=== PATIENT | female | born 1960 | race Caucasian/White ===

== ENCOUNTER → 2017-05-06 16:52 | Outpatient (CLI) | payer MEDICAID, SELFPAY ==
--- NOTE | 2017-05-06 17:30 | MRI_ITS ---
STUDY: MRI LUMBAR SPINE WITH AND WITHOUT CONTRAST REASON FOR EXAM: Female, 57 years old. Back pain radiating down the legs TECHNIQUE: Standardized fat and water weighted pulse sequences were obtained in the sagittal and axial planes. 10 ml of Gadavist contrast material was administered for the contrast portion of the examination. COMPARISON: None FINDINGS: T12-L1: Normal endplates. Normal disc height, hydration and minimal annular bulge. Normal bilateral facet joints. Normal central canal and bilateral lateral recesses. Normal bilateral intervertebral neural foramina. Normal lumbar lordosis. There is no substantial scoliosis. Normal conus medullaris that terminates at T12-L1 L1-2: Minor chronic wedging of superior endplate of L1 Normal disc height, hydration and minimal annular bulge.. Normal bilateral facet joints. Normal central canal and bilateral lateral recesses. Normal bilateral intervertebral neural foramina. L2-3: Minor chronic wedging of superior endplate of L2 Normal disc height, hydration and minimal annular bulge.. Normal bilateral facet joints. Normal central canal and bilateral lateral recesses. Normal bilateral intervertebral neural foramina. L3-4: Normal endplates. Normal disc height, hydration and minor annular bulge.. Mild facet arthropathy. Normal central canal. Mild bilateral recess and neural foraminal encroachment. L4-5: Grade 1 spondylolisthesis . Status post right laminectomy. Normal endplates. Normal disc height, hydration and minor pseudobulging of the annulus.. Bilateral facet arthropathy Normal central canal. Severe bilateral recess stenosis exaggerated by shortened pedicles. Mild neural foraminal encroachment L5-S1: Status post right laminotomy. Normal endplates. Normal disc height, desiccation and minimal annular bulge with prominent left posterolateral/foraminal disc protrusion. Bilateral facet arthropathy.. Normal central canal. Severe left lateral recess and neuroforaminal stenosis. Normal visualized sacral ala. There is mild enhancement epidural fibrosis seen within the epidural space at L4-5 and L5-S1. No evidence for acute osteomyelitis or discitis Normal visualized paraspinous soft tissue structures. MRI/Spine Lumbar W/WO Contrast IMPRESSION: Status post right laminectomy at L4-5 and L5-S1. There is severe bilateral stenosis at L4-5 due to minor pseudobulging the annulus and bilateral facet arthropathy exaggerated by shortened pedicles Severe left lateral recess and neuroforaminal stenosis at L5-S1 secondary to prominent left posterolateral/foraminal disc protrusion Electronically Signed: Michael Meza MD at 23:31 EST , Service support ,
== END ==
PROVIDERS: Visit Provider Orthopaedic Surgery
DX: M79.604 Pain in right leg (principal); M54.5 Low back pain
CPT/HCPCS: 72158; A9585

== ENCOUNTER 2017-07-16 23:59 | Inpatient (IN) | payer MEDICAID, SELFPAY ==
[2017-07-17] VITALS (8 sets, daily range): BP systolic 109–158; BP diastolic 72–100; PULSE 85–118; RESP 16–20; TEMP 36.3–37; O2SAT 93–98; BMI 32.5
--- NOTE | 2017-07-17 00:33 | RAD_ITS ---
STUDY: X-RAY - PELVIS AND RIGHT HIP REASON FOR EXAM: Female, 57 years old. Pain getting progressively worse since January 16, 2017, no known injury. TECHNIQUE: Radiological exam, hip, unilateral, with pelvis when performed; 2 or 3 views. COMPARISON: 01/15/2017. Pelvis 11/15/2016. FINDINGS: There are degenerative changes of the visualized lumbar spine. There are atherosclerotic vascular calcifications of the pelvic arteries. There is narrowing with cortical sclerosis and osteophyte formation of the sacroiliac joint consistent with degenerative osteoarthritic changes. Normal bilateral superior and inferior pubic rami. Normal pubic symphysis. Normal bilateral ischial tuberosities. Significant change of right femoral head and proximal neck with flattening of the femoral head, sclerosis, loss of femoral head height. There is a new step off which is densely corticated between the femoral neck and head in the subcapital left femur. Normal acetabulum. There is severe articular cephalad joint space narrowing of the hip. RAD/Hip 2-3 Views with Pelvis IMPRESSION: Again changes of the right hip in the interim with changes as outlined above, this may be due to avascular necrosis and compression of the femoral head, however the significant sclerosed step off may be secondary to a healed displaced up to patellofemoral neck fracture. MRI examination advised for further detail. Electronically Signed: Melissa Fuller MD at 1:52 EDT , Service support ,
[2017-07-17] MEDS: HYDROmorphone 1 MG/ML Syringe IM (00:57)
[2017-07-17] MEDS: HYDROmorphone 1 MG/ML Syringe IV ×3 (02:52→16:10)
--- NOTE | 2017-07-17 02:55 | ED.DCSUM_ITS ---
- ER Visit Summary Date of Service: 07/17/17 Chief Complaint: [Right hip pain] History of Present Illness: The patient is a 57 F [presents the emergency department with right hip pain for 6 or 7 months. Patient states that she was seen in the emergency department in December of last year and had x-rays that did not show anything significant. Patient since has been seen by pain management and has injections in the right hip. Patient also has a history of chronic back pain and in April had an MRI of her back that showed some herniated disks and patient is currently seeing a spine surgeon who is evaluating patient for possible need for surgery. Patient states that over the last month the pain in the right hip has become more severe and at times now having a hard time getting up from a seated position. When patient tries to stand and bear weight she hears a cracking and popping in the right hip. Patient states that the pain is severe and she points to her right groin as the area of her pain. Patient denies any recent trauma.] Physical Examination: [HEENT-PERRLA, EOMI. Cranial nerves II through XII grossly intact. TMs clear. Mucous membranes moist. No adenopathy. Cardiovascular-regular rate and rhythm without murmur or ectopy Lungs-clear to auscultation, chest wall stable without crepitus or subcu emphysema Abdomen-normoactive bowel sounds, soft, nontender, no rebound or rigidity, no peritoneal signs. Extremities-intact ?4, normal range of motion, normal pulses, atraumatic]. Right hip-patient has pain with logrolling. Patient has positive straight leg raise with pain starting at 10?. Deep tendon reflexes are plus 1 out of 4 bilaterally at the patella and Achilles. Patient has normal L5 extension bilaterally. Test Results: [X-rays of the right hip and pelvis obtained showed changes in the right hip which may be due to avascular necrosis and compression of the femoral head there is a significant sclerosis step off may be secondary to a healed displaced patellofemoral neck fracture. MRI examination advised for further detail.] Emergency Department Course and Treatment: [Patient was medicated with Dilaudid in the emergency department and patient will be admitted for pain control as she continues to complain of significant pain. Patient should not be weightbearing. Patient will be admitted for further evaluation and treatment.] Treatment Plan: [Admit] Disposition: [Admit] Impression: [Intractable right hip pain Avascular necrosis right hip Right hip fracture] This note was generated with [employer] dictation software. It may contain incorrect words, spelling, and punctuation that were not noted in review of the chart prior to signing ED Disposition - Plan for ED Patient: Chief Complaint: Back Referrals: [facility] Doctor,Out of [Primary Care Provider] -
[2017-07-17 03:39] LABS: Absolute Lymphocyte Count 3.06 X10^3/ul (0.83-4.51); Absolute Neutrophil Count 4.7 X10^3/uL (2.0-7.7); Basophil# 0.03 X10^3/uL; Basophil% 0.3 % (0-1); Eosinophil# 0.27 X10^3/uL; Eosinophils% 3.1 % (0-5); Hematocrit 39.6 % (37-47); Hemoglobin 12.7 g/dl (12.0-15.0); Lymphocyte # 3.06 X10^3/ul (4.0); Lymphocyte % 34.7 % (19-41); Mean Corp Hgb Conc 32.1 g/gl (32-36); Mean Corpuscular Hgb 28.5 pg (27.0-32.0); Mean Corpuscular Volume 88.8 fL (81-99); Mean Platelet Vol. 9.9 fl (6.2-12.0); Monocyte# 0.75 X10^3/uL; Monocyte% 8.5 % (0-10); Neutrophil % 53.2 % (47-70); POSITIVE COUNT NO; POSITIVE DIFFERENTIAL NO; POSITIVE MORPHOLOGY NO; Platelet Count 251 K/mm3 (150-450); RBC Distribution Width CV 16.1 % (11.6-14.6); RBC Distribution Width SD 52.6 fl (35.1-43.9); Red Blood Count 4.46 M/mm3 (4.2-5.4); White Blood Count 8.8 K/mm3 (4.4-11.0)
[2017-07-17 03:43] LABS: Prothrombin Time (Protime)PT. 12.7 SECONDS (11.7-14.9)
[2017-07-17] MEDS: oxyCODONE 5 MG Tablet 15 MG PO ×3 (04:19→13:36)
[2017-07-17] MEDS: tiZANidine HCl 2 MG Tablet 4 MG PO ×2 (04:20→12:49)
[2017-07-17 04:22] LABS: ALB/GLOB Ratio 0.9 RATIO (0.9-2.4); AST(SGOT) 11 U/L (15-37); Alanine Aminotransfer ALT/SGPT 19 U/L (13-56); Albumin, Serum 3.6 g/dL (3.2-5.0); Alkaline Phosphatase 116 U/L (45-117); Anion Gap 7 (5-15); BUN 29 mg/dL (7-18); BUN/Creat Ratio 25.9 RATIO (10-20); Calcium,Total 8.6 mg/dL (8.5-10.1); Chloride 108 mmol/L (98-107); Creatinine, Serum 1.12 mg/dL (0.55-1.02); EST Glomerular Filtration Rate 53 mL/min (>60); Est Glom Filt Rate - Afr Amer 65 mL/min (>60); Estimated Creatinine Clearance 50.47 ml/min; Globulin 3.9 g/dL (2.2-4.2); Glucose 116 mg/dL (74-106); Potassium 3.9 mmol/L (3.5-5.1); Protein, Total 7.5 g/dL (6.4-8.2); Sodium Level 144 mmol/L (136-145); Total Bilirubin < 0.10 mg/dL (0.20-1.00)
--- NOTE | 2017-07-17 04:38 | PCM.HP.STD ---
Problem List (1) Right hip pain Status: Acute History of Present Illness Date of Admission: 07/17/17 Chief Complaint: Increased right hip pain The patient is a 57 year old F in in the emergency room at [facility] complaining of increased pain in her right hip along with inability to bear weight on the right hip and abnormal hip sounds. Patient has had a history of right hip pain since December 2016, she saw an orthopedic surgeon at that time who did not feel the patient needed surgical intervention, she had her right hip joint injected 4 weeks ago by pain management but is continued to have ongoing pain in her right hip. Evaluation in the emergency room included x-rays of the right hip and pelvis which showed a flattening of the right femoral head and what appears to be a fracture of the right femoral neck. There is also question that there could be an AVN of the right hip present. She had no lab work ordered by the emergency room. Patient was given IV pain medication and the hospitalist service was called for admission for right hip fracture-possible AVN. Patient will need an MRI of the right hip performed and will need to be seen by orthopedic surgery, patient prefers Dr. Ronal Nascimento for orthopedic consultation Past Medical History Past Medical History (Chronic Problems): Chronic Problems (Last Reviewed 06/10/17 @ 10:08 by Jennifer Duvall) Atherosclerosis of [place] coronary artery of [place] heart without angina pectoris (Chronic) Tobacco abuse (Chronic) H/O laminectomy (Chronic) Hypertension (Chronic) Hyperlipidemia (Chronic) Low back pain (Chronic) Allergies baclofen Adverse Reaction (Verified 07/16/17 23:59) LETHARGY Home Medications: Ambulatory Orders Medication Instructions Recorded Furosemide [Lasix] 20 mg PO DAILY 09/16/16 Lisinopril [Zestril] 20 mg PO DAILY 09/16/16 traZODone [Desyrel] 200 mg PO QHS 09/16/16 Aspirin [Aspirin, Baby] 81 mg PO DAILY@0800 tab.chew 11/18/16 Clopidogrel Bisulfate [Plavix] 75 mg PO DAILY 30 Days tab 11/18/16 Ibuprofen [Motrin] 800 mg PO BID PRN 11/25/16 Tizanidine HCl [Zanaflex] 4 mg PO TID 11/25/16 DiphenhydrAMINE [Benadryl] 50 mg PO QHS 01/15/17 gabapentin 400 mg capsule 800 mg PO 4X/DAY 03/18/17 metoprolol tartrate 25 mg tablet 25 mg PO BID 60 Days #60 tab 05/25/17 rosuvastatin 40 mg tablet 40 mg PO DAILY 30 Days #30 tab 05/25/17 Oxycodone HCl/Acetaminophen 1 each PO TID PRN 07/17/17 [Percocet 7.5-325 mg Tablet] Surgical History: herniorrhaphy, hysterectomy, - - laminectomy, left tib-fib fracture with open reduction secondary to trauma, coronary artery stents ?2, left breast biopsy Psychiatric History: No pertinent psych hx 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 Lives: With Family Smoking Status: Current every day smoker Tobacco Use: Cigarettes Alcohol: Occasional Drugs: None - *Family History Maternal History Items: Diabetes Paternal History Items: Hypertension Review of Systems Constitutional: Denies: Anorexia, Chills, Fever, Night Sweats, Malaise, Weakness, Weight Change, Fatigue Eyes: Denies: Blurred vision, Cataracts, Conjunctivae Inflammation, Double vision, Drainage, Pain, Redness, Vision Change HEENT: Denies: Difficulty Swallowing, Dysphasia, Ear Pain, Eye Pain, Head Aches, Hearing Changes, Nasal bleeding, Nasal Congestion, Post Nasal Drip Cardiovascular: Denies: Chest Pain, Claudication, Chest Pressure, Chest Tightness, Edema, Heaviness, Orthopnea, Palpitations, Paroxysmal Noc. Dyspnea Respiratory: Denies: Cough, Hemoptysis, Pleuritic Pain, Shortness of Breath, Shortness of breath at rest, Shortness of breath upon exertion, Sputum production, Wheezing Gastrointestinal: Denies: Abdominal Pain, Constipation, Diarrhea, Hematemesis, Hematochezia, Nausea, Melena, Vomiting Genitourinary: Denies: Dysuria, Frequency, Hematuria, Hesitancy, Incontinence, Nocturia, Urgency Gynecological: Denies: Breast symptoms Musculoskeletal: Reports: Back Pain - Chronic back pain, Joint Pain - Right hip pain, Leg Pain - Right hip pain. Denies: Foot Pain Skin: Denies: Dryness, Jaundice, Pruritis, Rash Neurological: Denies: Blurred vision, Double vision, Change in Speech, Slurred speech, Difficulty swallowing, Focal weakness, Headaches, Incoordination, Numbness, Tingling Psychiatric: Denies: Anxiety, Depression, Homicidal Ideations, Suicidal Ideations Endocrine: Denies: Change in Body Habitus, Heat/ Cold Intolerance, Polydipsia, Polyuria Hematologic/ Lymphatic: Denies: Adenopathy, Anemia, Easy Bruising, Easy Bleeding, Petechiae, Purpura VTE Information - Inpt Only VTE Present on Admission: No VTE Mechan Device Prophylaxis: SCD's VTE Pharm Prophylaxis ordered?: No Reason prophylaxis not ordered:: Treatment Not Indicated - SCD's were ordered Patient Problems: Active and Suspected Problems (Last Reviewed 06/10/17 @ 10:08 by Jennifer Duvall) Right hip pain (Acute) - Physical Exam General: Alert, Oriented x3, Cooperative, Well developed, Well nourished HEENT: Atraumatic, PERRLA, EOMI, Normocephalic Oral: Moist Mucosa Neck: Supple, No JVD, Negative Carotid Bruits, No Nuchal Rigidity, Trachea Midline, Thyroid Normal Size and Texture Lungs: Clear to auscultation, Normal air movement, No rhonchi, No rales, Wheezes - Scattered mild expiratory wheezes are noted anteriorly Cardiovascular: Regular rate, Regular Rhythm, Normal S1, Normal S2, No murmurs, No Ectopic Activity, PMI Normal, No rub noted, No Gallop Abdomen: Bowel Sounds Present, Soft, Non Tender, Non-Distended, No hernias noted Extremities: No clubbing, No cyanosis, No edema, Capillary Refill Less than 3 Seconds Skin: No rashes, No breakdown Musculoskeletal: Tenderness - Tenderness over the right hip area is noted to palpation, - - Decreased range of motion is noted in flexion, extension, and abduction in the right hip due to pain Neurological: Cranial nerves II-XII grossly intact, Neuro grossly intact, Sensory exam intact to light touch and pain, Coordination normal Psych/Mental Status: Appropriate, Anxious, Alert and oriented to time, place, person, mood and affect Vital Signs Temp Pulse Resp BP Pulse Ox 98.1 F 103 H 16 144/84 H 97 07/17/17 03:53 07/17/17 03:53 07/17/17 03:53 07/17/17 03:53 07/17/17 03:53 Oxygen Delivery Method Room Air Weight: 88.7 kg Body Mass Index (BMI) 32.5 Laboratory Tests Past 24 Hrs 07/17/17 07/17/17 07/17/17 03:00 03:00 03:00 WBC 8.8 RBC 4.46 Hgb 12.7 Hct 39.6 MCV 88.8 MCH 28.5 MCHC 32.1 RDW 16.1 H RDW Differential 52.6 H Plt Count 251 MPV 9.9 Immature Gran % (Auto) 0.200 Neut % (Auto) 53.2 Lymph % (Auto) 34.7 Travis % (Auto) 8.5 Eos % (Auto) 3.1 Baso % (Auto) 0.3 Absolute Neuts (auto) 4.7 Absolute Lymphs (auto) 3.06 Total Counted Not Reportable PT 12.7 INR 1.0 Sodium 144 Potassium 3.9 Chloride 108 H Carbon Dioxide 29.0 Anion Gap 7 BUN 29 H Creatinine 1.12 H Estim Creat Clear Calc 50.47 Est GFR (MDRD) Af Amer 65 Est GFR (MDRD) Non-Af 53 L BUN/Creatinine Ratio 25.9 H Glucose 116 H Calcium 8.6 Total Bilirubin < 0.10 L AST 11 L ALT 19 Alkaline Phosphatase 116 Total Protein 7.5 Albumin 3.6 Globulin 3.9 Albumin/Globulin Ratio 0.9 Assessment/Plan Active and Suspected Problems (Last Reviewed 06/10/17 @ 10:08 by Jennifer Duvall) Right hip pain (Acute) #1 right hip fracture-probably secondary to AVN, patient will be admitted to [facility], she will be seen by orthopedic surgery, she will have an MRI of her right hip, IV pain medications will be administered as needed #2 coronary artery disease-stable at this time, patient had two stents placed in October 2016 #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
--- NOTE | 2017-07-17 04:47 | HP.PCM_ITS ---
Problem List (1) Right hip pain Status: Acute History of Present Illness Date of Admission: 07/17/17 Chief Complaint: Increased right hip pain The patient is a 57 year old F in in the emergency room at [facility] complaining of increased pain in her right hip along with inability to bear weight on the right hip and abnormal hip sounds. Patient has had a history of right hip pain since December 2016, she saw an orthopedic surgeon at that time who did not feel the patient needed surgical intervention, she had her right hip joint injected 4 weeks ago by pain management but is continued to have ongoing pain in her right hip. Evaluation in the emergency room included x -rays of the right hip and pelvis which showed a flattening of the right femoral head and what appears to be a fracture of the right femoral neck. There is also question that there could be an AVN of the right hip present. She had no lab work ordered by the emergency room. Patient was given IV pain medication and the hospitalist service was called for admission for right hip fracture-possible AVN. Patient will need an MRI of the right hip performed and will need to be seen by orthopedic surgery, patient prefers Dr. Ronal Nascimento for orthopedic consultation Past Medical History Past Medical History (Chronic Problems): Chronic Problems (Last Reviewed 06/10/17 @ 10:08 by Jennifer Duvall) Atherosclerosis of [place] coronary artery of [place] heart without angina pectoris (Chronic) Tobacco abuse (Chronic) H/O laminectomy (Chronic) Hypertension (Chronic) Hyperlipidemia (Chronic) Low back pain (Chronic) Allergies baclofen Adverse Reaction (Verified 07/16/17 23:59) LETHARGY Home Medications: Ambulatory Orders Medication Instructions Recorded Furosemide [Lasix] 20 mg PO DAILY 09/16/16 Lisinopril [Zestril] 20 mg PO DAILY 09/16/16 traZODone [Desyrel] 200 mg PO QHS 09/16/16 Aspirin [Aspirin, Baby] 81 mg PO DAILY@0800 tab.chew 11/18/16 Clopidogrel Bisulfate [Plavix] 75 mg PO DAILY 30 Days tab 11/18/16 Ibuprofen [Motrin] 800 mg PO BID PRN 11/25/16 Tizanidine HCl [Zanaflex] 4 mg PO TID 11/25/16 DiphenhydrAMINE [Benadryl] 50 mg PO QHS 01/15/17 gabapentin 400 mg capsule 800 mg PO 4X/DAY 03/18/17 metoprolol tartrate 25 mg tablet 25 mg PO BID 60 Days #60 tab 05/25/17 rosuvastatin 40 mg tablet 40 mg PO DAILY 30 Days #30 tab 05/25/17 Oxycodone HCl/Acetaminophen 1 each PO TID PRN 07/17/17 [Percocet 7.5-325 mg Tablet] Surgical History: herniorrhaphy, hysterectomy, - - laminectomy, left tib-fib fracture with open reduction secondary to trauma, coronary artery stents ?2, left breast biopsy Psychiatric History: No pertinent psych hx 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 Lives: With Family Smoking Status: Current every day smoker Tobacco Use: Cigarettes Alcohol: Occasional Drugs: None - *Family History Maternal History Items: Diabetes Paternal History Items: Hypertension Review of Systems Constitutional: Denies: Anorexia, Chills, Fever, Night Sweats, Malaise, Weakness , Weight Change, Fatigue Eyes: Denies: Blurred vision, Cataracts, Conjunctivae Inflammation, Double vision, Drainage, Pain, Redness, Vision Change HEENT: Denies: Difficulty Swallowing, Dysphasia, Ear Pain, Eye Pain, Head Aches , Hearing Changes, Nasal bleeding, Nasal Congestion, Post Nasal Drip Cardiovascular: Denies: Chest Pain, Claudication, Chest Pressure, Chest Tightness, Edema, Heaviness, Orthopnea, Palpitations, Paroxysmal Noc. Dyspnea Respiratory: Denies: Cough, Hemoptysis, Pleuritic Pain, Shortness of Breath, Shortness of breath at rest, Shortness of breath upon exertion, Sputum production, Wheezing Gastrointestinal: Denies: Abdominal Pain, Constipation, Diarrhea, Hematemesis, Hematochezia, Nausea, Melena, Vomiting Genitourinary: Denies: Dysuria, Frequency, Hematuria, Hesitancy, Incontinence, Nocturia, Urgency Gynecological: Denies: Breast symptoms Musculoskeletal: Reports: Back Pain - Chronic back pain, Joint Pain - Right hip pain, Leg Pain - Right hip pain. Denies: Foot Pain Skin: Denies: Dryness, Jaundice, Pruritis, Rash Neurological: Denies: Blurred vision, Double vision, Change in Speech, Slurred speech, Difficulty swallowing, Focal weakness, Headaches, Incoordination, Numbness, Tingling Psychiatric: Denies: Anxiety, Depression, Homicidal Ideations, Suicidal Ideations Endocrine: Denies: Change in Body Habitus, Heat/ Cold Intolerance, Polydipsia, Polyuria Hematologic/ Lymphatic: Denies: Adenopathy, Anemia, Easy Bruising, Easy Bleeding , Petechiae, Purpura VTE Information - Inpt Only VTE Present on Admission: No VTE Mechan Device Prophylaxis: SCD's VTE Pharm Prophylaxis ordered?: No Reason prophylaxis not ordered:: Treatment Not Indicated - SCD's were ordered Patient Problems: Active and Suspected Problems (Last Reviewed 06/10/17 @ 10:08 by Jennifer Duvall) Right hip pain (Acute) - Physical Exam General: Alert, Oriented x3, Cooperative, Well developed, Well nourished HEENT: Atraumatic, PERRLA, EOMI, Normocephalic Oral: Moist Mucosa Neck: Supple, No JVD, Negative Carotid Bruits, No Nuchal Rigidity, Trachea Midline, Thyroid Normal Size and Texture Lungs: Clear to auscultation, Normal air movement, No rhonchi, No rales, Wheezes - Scattered mild expiratory wheezes are noted anteriorly Cardiovascular: Regular rate, Regular Rhythm, Normal S1, Normal S2, No murmurs, No Ectopic Activity, PMI Normal, No rub noted, No Gallop Abdomen: Bowel Sounds Present, Soft, Non Tender, Non-Distended, No hernias noted Extremities: No clubbing, No cyanosis, No edema, Capillary Refill Less than 3 Seconds Skin: No rashes, No breakdown Musculoskeletal: Tenderness - Tenderness over the right hip area is noted to palpation, - - Decreased range of motion is noted in flexion, extension, and abduction in the right hip due to pain Neurological: Cranial nerves II-XII grossly intact, Neuro grossly intact, Sensory exam intact to light touch and pain, Coordination normal Psych/Mental Status: Appropriate, Anxious, Alert and oriented to time, place, person, mood and affect Vital Signs Temp Pulse Resp BP Pulse Ox 98.1 F 103 H 16 144/84 H 97 07/17/17 03:53 07/17/17 03:53 07/17/17 03:53 07/17/17 03:53 07/17/17 03:53 Oxygen Delivery Method Room Air Weight: 88.7 kg Body Mass Index (BMI) 32.5 Laboratory Tests Past 24 Hrs 07/17/17 07/17/17 07/17/17 03:00 03:00 03:00 WBC 8.8 RBC 4.46 Hgb 12.7 Hct 39.6 MCV 88.8 MCH 28.5 MCHC 32.1 RDW 16.1 H RDW Differential 52.6 H Plt Count 251 MPV 9.9 Immature Gran % (Auto) 0.200 Neut % (Auto) 53.2 Lymph % (Auto) 34.7 Harney % (Auto) 8.5 Eos % (Auto) 3.1 Baso % (Auto) 0.3 Absolute Neuts (auto) 4.7 Absolute Lymphs (auto) 3.06 Total Counted Not Reportable PT 12.7 INR 1.0 Sodium 144 Potassium 3.9 Chloride 108 H Carbon Dioxide 29.0 Anion Gap 7 BUN 29 H Creatinine 1.12 H Estim Creat Clear Calc 50.47 Est GFR (MDRD) Af Amer 65 Est GFR (MDRD) Non-Af 53 L BUN/Creatinine Ratio 25.9 H Glucose 116 H Calcium 8.6 Total Bilirubin < 0.10 L AST 11 L ALT 19 Alkaline Phosphatase 116 Total Protein 7.5 Albumin 3.6 Globulin 3.9 Albumin/Globulin Ratio 0.9 Assessment/Plan Active and Suspected Problems (Last Reviewed 06/10/17 @ 10:08 by Jennifer Duvall) Right hip pain (Acute) #1 right hip fracture-probably secondary to AVN, patient will be admitted to [facility], she will be seen by orthopedic surgery, she will have an MRI of her right hip, IV pain medications will be administered as needed #2 coronary artery disease-stable at this time, patient had two stents placed in October 2016 #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
--- NOTE | 2017-07-17 05:55 | MRI_ITS ---
STUDY: MRI BILATERAL HIPS T PELVIS REASON FOR EXAM: Severe right hip pain worsening since December, no specific injury. TECHNIQUE: Standardized fat and water weighted pulse sequences were obtained in all 3 orthogonal planes. COMPARISON: Radiographs 07/17/2017. FINDINGS: RIGHT HIP There is chondral loss of the right hip joint and effusion (T2 sagittal images 39-41). There is bone edema of the right acetabulum (inversion recovery coronal images 10-15). There is degeneration of the right labrum. There is subchondral collapse of the right femoral head (T1 coronal images 11-13) with bone edema extending into the femoral neck and a linear fracture line of the right femoral head (T1 axial image 20; T1 coronal image 11), most suggestive of insufficiency fracture. There is an enchondroma in the base of the right femoral neck (inversion recovery coronal image 12) measuring 1.6 cm in length. Normal right gluteus minimus, medius and iliopsoas tendons and distal insertions. Normal right superior and inferior pubic rami. Normal right pubic symphysis. Normal right ischial tuberosity. Normal origin of the right hamstring tendons. Normal visualized right iliac wing, sacroiliac joint, and sacral ala. There is a strain of the right gluteus minimus muscle (inversion recovery coronal images 9-11). LEFT HIP Normal left hip joint without articular joint space narrowing. Normal left acetabulum. Normal left labrum. Normal left femoral head. Normal left femoral neck and intratrochanteric region. Normal left gluteus minimus, medius and iliopsoas tendons and distal insertions. Normal left superior and inferior pubic rami. Normal left pubic symphysis. Normal left ischial tuberosity. Normal origin of the left hamstring tendons. Normal visualized left iliac wing, sacroiliac joint, and sacral ala. MRI/Pelvis (Routine) IMPRESSION: Subchondral insufficiency fracture with subchondral collapse of the right femoral head. Chondral loss of the right hip joint with joint effusion. Bone edema of the right acetabulum. Strain of the right gluteus minimus muscle. Enchondroma in the right femoral neck. Electronically Signed: Morro Corea MD at 9:33 EDT Tel , Service support ,
--- NOTE | 2017-07-17 07:19 | NURSING ---
Card for patient's heart stent faxed to MRI per their request
[2017-07-17] MEDS: Gabapentin 800 MG Tablet PO ×3 (09:34→17:07)
[2017-07-17] MEDS: Aspirin 81 MG TAB.CHEW PO (09:34)
[2017-07-17] MEDS: Furosemide 20 MG Tablet PO (09:35)
[2017-07-17] MEDS: Clopidogrel Bisulfate 75 MG Tablet PO (09:35)
[2017-07-17] MEDS: Metoprolol Tartrate 25 MG Tablet PO (09:35)
[2017-07-17] MEDS: Lisinopril 20 MG Tablet PO (09:35)
[2017-07-17] MEDS: 0.9% NaCl Peripheral Flush Adult/Peds IV ×3 (09:42→16:10)
--- NOTE | 2017-07-17 10:15 | PCM.PN.HOSP ---
Patient Problems: Active and Suspected Problems (Last Reviewed 06/10/17 @ 10:08 by Jennifer Duvall) Right hip pain (Acute) Subjective: Has complained of pain in her right hip since December. Saw Dr. Armenta who did x-rays and said that her hip look good at that time. Her hip has a steadily gotten worse during this time. X-ray today shows a vascular necrosis of the hip. MRI showed subchondral insufficiency fracture with subchondral collapse of the right femoral head. Subchondral loss of the right hip joint with joint effusion. Bone edema of the right acetabulum. Vitals/I&O's: Vital Signs Temp Pulse Resp BP Pulse Ox 37.0 C 118 H 16 146/100 H 96 07/17/17 09:29 07/17/17 09:35 07/17/17 09:29 07/17/17 09:29 07/17/17 09:29 Oxygen Delivery Method Room Air Weight: 88.7 kg Body Mass Index (BMI) 32.5 General: Alert HEENT: Atraumatic, Normocephalic Neck: No Nodes, Thyroid Normal Size and Texture Lungs: Clear to auscultation, Normal air movement, No rhonchi, No wheeze Cardiovascular: Regular rate, Regular Rhythm, Normal S1, Normal S2 Abdomen: Bowel Sounds Present, Soft, Non Tender, Non-Distended, No Hepato-splenomegaly Extremities: No edema, No Calf Tenderness Psych/Mental Status: Normal Affect, Appropriate Laboratory Results 07/17/17 03:00: WBC 8.8, RBC 4.46, Hgb 12.7, Hct 39.6, MCV 88.8, MCH 28.5, MCHC 32.1, RDW 16.1 H, RDW Differential 52.6 H, Plt Count 251, MPV 9.9, Immature Gran % (Auto) 0.200, Neut % (Auto) 53.2, Lymph % (Auto) 34.7, [place] % (Auto) 8.5, Eos % (Auto) 3.1, Baso % (Auto) 0.3, Absolute Neuts (auto) 4.7, Absolute Lymphs (auto) 3.06, Total Counted Not Reportable 07/17/17 03:00: PT 12.7, INR 1.0 07/17/17 03:00: Sodium 144, Potassium 3.9, Chloride 108 H, Carbon Dioxide 29.0, Anion Gap 7, BUN 29 H, Creatinine 1.12 H, Estim Creat Clear Calc 50.47, Est GFR (MDRD) Af Amer 65, Est GFR (MDRD) Non-Af 53 L, BUN/Creatinine Ratio 25.9 H, Glucose 116 H, Calcium 8.6, Total Bilirubin < 0.10 L, AST 11 L, ALT 19, Alkaline Phosphatase 116, Total Protein 7.5, Albumin 3.6, Globulin 3.9, Albumin/Globulin Ratio 0.9 Current Medications Aspirin (Aspirin, Baby) 81 mg PO DAILY@0800 [facility] Last Admin: 07/17/17 09:34 Dose: 81 mg Atorvastatin Calcium (Lipitor) 80 mg PO DAILY@2200 [facility] Clopidogrel Bisulfate (Plavix) 75 mg PO DAILY [facility] Last Admin: 07/17/17 09:35 Dose: 75 mg Diphenhydramine HCl (Benadryl) 50 mg PO QHS [facility] Furosemide (Lasix) 20 mg PO DAILY [facility] Last Admin: 07/17/17 09:35 Dose: 20 mg Gabapentin (Neurontin) 800 mg PO 4X/DAYCM [facility] Last Admin: 07/17/17 09:34 Dose: 800 mg Hydromorphone HCl (Dilaudid Inj) 1 mg IV Q4H PRN PRN PRN Reason: SEVERE PAIN (6-10/10) Last Admin: 07/17/17 09:41 Dose: 1 mg Lisinopril (Zestril) 20 mg PO DAILY [facility] Last Admin: 07/17/17 09:35 Dose: 20 mg Metoprolol Tartrate (Lopressor (Beta Ha)) 25 mg PO BID [facility] Last Admin: 07/17/17 09:35 Dose: 25 mg Oxycodone HCl (Oxyir) 15 mg PO Q4H PRN PRN PRN Reason: MOD-SEVERE PAIN (4-10/10) Last Admin: 07/17/17 08:12 Dose: 15 mg Sodium Chloride () 5 - 30 ml IV UD PRN PRN Reason: SALINE FLUSH Last Admin: 07/17/17 09:42 Dose: 5 ml Tizanidine HCl (Zanaflex) 4 mg PO TID [facility] Last Admin: 07/17/17 04:20 Dose: 4 mg Medical Necessity - Tobacco Use Smoking Status: Current every day smoker Tobacco Use: Cigarettes Assessment/Plan Active and Suspected Problems (Last Reviewed 06/10/17 @ 10:08 by Jennifer Duvall) Right hip pain (Acute) 1. Right hip avascular necrosis Discussed with Dr. Nascimento who states that this is a chronic process for the patient and will likely not be performing surgery while she is here and recommended patient utilize a walker for ambulating. He will evaluate the patient later on and have further discussions with her more specifically. 2. Coronary artery disease Drug-eluting stents placed in October. Patient will need cardiology clearance prior to her undergoing surgery to see if she can be off of the Plavix. Code Visit Procedures: Other Procedure - See Report - non billable rounding.
--- NOTE | 2017-07-17 10:21 | PN_ITS ---
Patient Problems: Active and Suspected Problems (Last Reviewed 06/10/17 @ 10:08 by Jennifer Duvall) Right hip pain (Acute) Subjective: Has complained of pain in her right hip since December. Saw Dr. Armenta who did x- rays and said that her hip look good at that time. Her hip has a steadily gotten worse during this time. X-ray today shows a vascular necrosis of the hip. MRI showed subchondral insufficiency fracture with subchondral collapse of the right femoral head. Subchondral loss of the right hip joint with joint effusion. Bone edema of the right acetabulum. Vitals/I&O's: Vital Signs Temp Pulse Resp BP Pulse Ox 37.0 C 118 H 16 146/100 H 96 07/17/17 09:29 07/17/17 09:35 07/17/17 09:29 07/17/17 09:29 07/17/17 09:29 Oxygen Delivery Method Room Air Weight: 88.7 kg Body Mass Index (BMI) 32.5 General: Alert HEENT: Atraumatic, Normocephalic Neck: No Nodes, Thyroid Normal Size and Texture Lungs: Clear to auscultation, Normal air movement, No rhonchi, No wheeze Cardiovascular: Regular rate, Regular Rhythm, Normal S1, Normal S2 Abdomen: Bowel Sounds Present, Soft, Non Tender, Non-Distended, No Hepato- splenomegaly Extremities: No edema, No Calf Tenderness Psych/Mental Status: Normal Affect, Appropriate Laboratory Results 07/17/17 03:00: WBC 8.8, RBC 4.46, Hgb 12.7, Hct 39.6, MCV 88.8, MCH 28.5, MCHC 32.1, RDW 16.1 H, RDW Differential 52.6 H, Plt Count 251, MPV 9.9, Immature Gran % (Auto) 0.200, Neut % (Auto) 53.2, Lymph % (Auto) 34.7, [place] % (Auto) 8.5 , Eos % (Auto) 3.1, Baso % (Auto) 0.3, Absolute Neuts (auto) 4.7, Absolute Lymphs (auto) 3.06, Total Counted Not Reportable 07/17/17 03:00: PT 12.7, INR 1.0 07/17/17 03:00: Sodium 144, Potassium 3.9, Chloride 108 H, Carbon Dioxide 29.0, Anion Gap 7, BUN 29 H, Creatinine 1.12 H, Estim Creat Clear Calc 50.47, Est GFR (MDRD) Af Amer 65, Est GFR (MDRD) Non-Af 53 L, BUN/Creatinine Ratio 25.9 H, Glucose 116 H, Calcium 8.6, Total Bilirubin < 0.10 L, AST 11 L, ALT 19, Alkaline Phosphatase 116, Total Protein 7.5, Albumin 3.6, Globulin 3.9, Albumin/ Globulin Ratio 0.9 Current Medications Aspirin (Aspirin, Baby) 81 mg PO DAILY@0800 [facility] Last Admin: 07/17/17 09:34 Dose: 81 mg Atorvastatin Calcium (Lipitor) 80 mg PO DAILY@2200 [facility] Clopidogrel Bisulfate (Plavix) 75 mg PO DAILY [facility] Last Admin: 07/17/17 09:35 Dose: 75 mg Diphenhydramine HCl (Benadryl) 50 mg PO QHS [facility] Furosemide (Lasix) 20 mg PO DAILY [facility] Last Admin: 07/17/17 09:35 Dose: 20 mg Gabapentin (Neurontin) 800 mg PO 4X/DAYCM [facility] Last Admin: 07/17/17 09:34 Dose: 800 mg Hydromorphone HCl (Dilaudid Inj) 1 mg IV Q4H PRN PRN PRN Reason: SEVERE PAIN (6-10/10) Last Admin: 07/17/17 09:41 Dose: 1 mg Lisinopril (Zestril) 20 mg PO DAILY [facility] Last Admin: 07/17/17 09:35 Dose: 20 mg Metoprolol Tartrate (Lopressor (Beta Ha)) 25 mg PO BID [facility] Last Admin: 07/17/17 09:35 Dose: 25 mg Oxycodone HCl (Oxyir) 15 mg PO Q4H PRN PRN PRN Reason: MOD-SEVERE PAIN (4-10/10) Last Admin: 07/17/17 08:12 Dose: 15 mg Sodium Chloride () 5 - 30 ml IV UD PRN PRN Reason: SALINE FLUSH Last Admin: 07/17/17 09:42 Dose: 5 ml Tizanidine HCl (Zanaflex) 4 mg PO TID [facility] Last Admin: 07/17/17 04:20 Dose: 4 mg Medical Necessity - Tobacco Use Smoking Status: Current every day smoker Tobacco Use: Cigarettes Assessment/Plan Active and Suspected Problems (Last Reviewed 06/10/17 @ 10:08 by Jennifer Duvall) Right hip pain (Acute) 1. Right hip avascular necrosis * Discussed with Dr. Nascimento who states that this is a chronic process for the patient and will likely not be performing surgery while she is here and recommended patient utilize a walker for ambulating. He will evaluate the patient later on and have further discussions with her more specifically. 2. Coronary artery disease * Drug-eluting stents placed in October. Patient will need cardiology clearance prior to her undergoing surgery to see if she can be off of the Plavix. Code Visit Procedures: Other Procedure - See Report - non billable rounding.
--- NOTE | 2017-07-17 11:31 | CASEMGMT ---
Social Work Assessment Referral Date: 07/17/2017 Date of Assessment: 07/17/2017 Reason for consult: Initial Assessment Informant: CM consult Personal Status: SW met with pt to complete initial assessment. MISTY introduced self and role at [facility]. Pt is alert and orientated x4. Pt states that before coming into the hospital she was living with her aunt in a one-story home. Pt states that she has one step to get into her home. Pt states that she has been dependent on ADLs since December when her hip pain started. Pt states that her aunt helps her with ADLs. Pt states that she has a cane at home and would like grab bars in her shower. SW informed pt that this worker will check to see how to get grab bars for pt. Pt states that her aunt has in a walk in shower that she is able to use. Pt states that her aunt is very supportive of her. Pt states that her plan is to return home at discharge with support from her aunt. Pt denied additional needs or concerns at this time. Substance Abuse Hx: Pt states that she used to smoke cigarettes and drink alcohol but states that she no longer does these. Pt states that she never had a problem with these when she smoked and drank. Pt denied other substance use. Mental Health Hx: Pt states that she has anxiety and depression. Pt states that she used to receive counseling services but states that they didn't really help her. Pt denied a current need for counseling services. Pt states that she used to be on Ativan. Pt states that she is no longer taking it but would like to get back on it. MISTY asked pt if she has a PCP and per pt she doesn't. SW provide pt with list of PCP's. SW encouraged pt to set up a PCP and when she has one to see if they can prescribe her Ativan. Pt states understanding. Plan: Return home at discharge with support from her aunt Cherelle Camacho NEONATAL SURGEON, METER/RELAY CRAFTSMAN
--- NOTE | 2017-07-17 14:33 | CASEMGMT ---
Social Work Note SW back in to see pt to provide PCP list. SW asked pt if she would be interested in completing advanced directives as CM consult was for Advanced Directions. Pt is interested in completing. This SW assisted pt in completing Advanced Directives and MAMADOU DA SILVA witnessed signature with this SW. SW also informed pt that for grab rails pt can go to any Hardware store to get grab bars and that insurance won't pay for them. Pt was receptive to this and states understanding. Pt was receptive to do outpatient therapy at discharge if needed. MAMADOU Burciaga notified of this. Pt denied additional needs or concerns at this time. Plan: Discharge home with outpatient therapy Cherelle Camacho JOB DEVELOPER, ASSISTANT PROFESSOR OF ANTHROPOLOGY
--- NOTE | 2017-07-17 15:14 | CASEMGMT ---
Social Work Note SW placed script for front wheeled walker and green sheet on chart. Plan: Discharge Home with outpatient therapy if needed Cherelle Camacho MSW, AUTO BODY REPAIR TEACHER
[2017-07-18] VITALS (8 sets, daily range): BP systolic 103–133; BP diastolic 64–88; PULSE 85–108; RESP 16–18; TEMP 36.6–37; O2SAT 94–97
[2017-07-18] MEDS: DiphenhydrAMINE 25 MG Capsule 50 MG PO (00:02)
[2017-07-18] MEDS: traZODone 100 MG Tablet 200 MG PO (00:03)
[2017-07-18] MEDS: HYDROmorphone 1 MG/ML Syringe IV ×3 (01:18→10:36)
[2017-07-18] MEDS: oxyCODONE 5 MG Tablet 15 MG PO ×5 (03:23→21:24)
[2017-07-18] MEDS: tiZANidine HCl 2 MG Tablet 4 MG PO ×3 (05:55→21:24)
[2017-07-18] MEDS: 0.9% NaCl Peripheral Flush Adult/Peds IV ×3 (05:59→10:36)
--- NOTE | 2017-07-18 07:27 | CON.PCM_ITS ---
- Consult Date of Consult: 07/18/17 - Reason for Consult Handwritten consult was submitted yesterday as the Advisor Client Match system was down. The patient has had a stent placed in October and is currently on Plavix. I did review the imaging she has severe avascular necrosis with subchondral collapse which is certainly causing her discomfort. MRI was also reviewed. Patient does not have an acute fracture. She will require a hip replacement however the plan will be to complete this on an elective basis. Patient was instructed to see her java front end web developer this week and follow-up with me this coming week and proceed with surgery in the next couple of weeks again on an elective basis in order to decrease risk of complication. At this point ambulation with protected weightbearing using a walker would be appropriate and pain medication. It is reasonable to discharge her home with oral pain medication with follow-up next week. Arrangements have been made with my office for follow -up
[2017-07-18] MEDS: Aspirin 81 MG TAB.CHEW PO (09:17)
[2017-07-18] MEDS: Gabapentin 800 MG Tablet PO ×4 (09:17→21:24)
--- NOTE | 2017-07-18 10:20 | CASEMGMT ---
MISTY met with patient to inquire if she would like home therapy or outpatient therapy. She said she does not want any therapy currently as she is in so much pain. She said she will be having a hip replacement and back surgery soon and at that time will take all the therapy she can get. MISTY told her the physician needs to sign her prescription for the walker and they will then give it to her at d/c. MISTY told her she can take it to [facility]. She thanked MISTY. Green sheet on chart with instructions to have physician sign prescription for walker and give to patient. Plan: home with prescription for walker Asia SCHREIBER WORKFORCE ADVISOR
[2017-07-18] MEDS: Clopidogrel Bisulfate 75 MG Tablet PO (10:36)
[2017-07-18] MEDS: Lisinopril 20 MG Tablet PO (10:36)
[2017-07-18] MEDS: Metoprolol Tartrate 25 MG Tablet PO ×2 (10:36→21:23)
[2017-07-18] MEDS: Furosemide 20 MG Tablet PO (10:36)
--- NOTE | 2017-07-18 13:24 | PCM.PN.HOSP ---
Patient Problems: Active and Suspected Problems (Last Reviewed 06/10/17 @ 10:08 by Jennifer Duvall) Right hip pain (Acute) Subjective: Says that she cannot go home because of her pain and with a help there is glottic is helps put her to sleep. Told that I will be discontinuing the Dilaudid she has for 1 more dose. I told her would not oblige but would focus on oral treatment of her pain control. Vitals/I&O's: Vital Signs Temp Pulse Resp BP Pulse Ox 37.0 C 88 18 116/72 94 07/18/17 09:08 07/18/17 10:36 07/18/17 09:08 07/18/17 09:08 07/18/17 09:08 Oxygen Delivery Method Room Air Weight: 88.7 kg Body Mass Index (BMI) 32.5 Intake and Output for Last 24 Hours 07/16/17 07/17/17 07/18/17 23:59 23:59 23:59 Intake Total 1500 / 1500 1260 / 1260 Balance 1500 / 1500 1260 / 1260 General: Alert, No apparent distress, - - Became tearful at one point Neurological: - - Patient seen walking with physical therapy with walker and gait seem to be stable with that. Psych/Mental Status: Anxious Current Medications Aspirin (Aspirin, Baby) 81 mg PO DAILY@0800 [facility] Last Admin: 07/18/17 09:17 Dose: 81 mg Atorvastatin Calcium (Lipitor) 80 mg PO DAILY@2200 [facility] Last Admin: 07/18/17 00:23 Dose: Not Given Clopidogrel Bisulfate (Plavix) 75 mg PO DAILY [facility] Last Admin: 07/18/17 10:36 Dose: 75 mg Diphenhydramine HCl (Benadryl) 50 mg PO QHS [facility] Last Admin: 07/18/17 00:02 Dose: 50 mg Furosemide (Lasix) 20 mg PO DAILY [facility] Last Admin: 07/18/17 10:36 Dose: 20 mg Gabapentin (Neurontin) 800 mg PO 4X/DAYCM [facility] Last Admin: 07/18/17 12:37 Dose: 800 mg Lisinopril (Zestril) 20 mg PO DAILY [facility] Last Admin: 07/18/17 10:36 Dose: 20 mg Metoprolol Tartrate (Lopressor (Beta Ha)) 25 mg PO BID [facility] Last Admin: 07/18/17 10:36 Dose: 25 mg Oxycodone HCl (Oxyir) 15 mg PO Q4H PRN PRN PRN Reason: MOD-SEVERE PAIN (4-10/10) Last Admin: 07/18/17 13:18 Dose: 15 mg Sodium Chloride () 5 - 30 ml IV UD PRN PRN Reason: SALINE FLUSH Last Admin: 07/18/17 10:36 Dose: 10 ml Tizanidine HCl (Zanaflex) 4 mg PO TID [facility] Last Admin: 07/18/17 13:18 Dose: 4 mg Trazodone HCl (Desyrel) 200 mg PO QHS [facility] Last Admin: 07/18/17 00:03 Dose: 200 mg Medical Necessity - Tobacco Use Smoking Status: Current every day smoker Tobacco Use: Cigarettes Assessment/Plan Active and Suspected Problems (Last Reviewed 06/10/17 @ 10:08 by Jennifer Duvall) Right hip pain (Acute) 1. Right hip avascular necrosis Patient to follow-up with Dr. Nascimento as outpatient for surgical intervention. Patient giving me some conflicting information. Patient was stating that she was told by orthopedics that she would need to stay in the hospital for several days to get her pain under control and but and she was asking for an additional dose of Dilaudid before I would discontinue it. I told her I was very concerned about her requesting completing further Dilaudid. I told her that we would try to focus on her pain control as much as possible. Patient then went on to talk about her back pain and then her neck pain and how she is seeing spine surgery as well as pain management for this. I told her the goal is to get her functional but we are not going to completely make her pain-free. Told the patient I have no doubts about her having pain but the goal is to get her home. Confounding this is a patient was seen up ambulating and in no distress and was talking with the physical therapist by myself. Patient was also seen by other providers as well and that she appear to be in no distress. I did review the patient's OARRS and she did receive 84 7.5/[address] Fitzpatrick on June 30 and then she did receive 800 mg of gabapentin with a quantity 112 on 15 July. I am concerned about the patient's request for pain medications and trigger with IV pain medication almost pleading. Plan is to continue with the oxycodone. Patient was already seeing Dr. Correa for this pain as his pain is been going on for 6 months. Him since he not can change anything in regards her medications as she is on Neurontin well as Percocet. Plan is for the patient to go home with a walker and then to follow-up with cardiology and orthopedics for revision of her right hip. 2. Coronary artery disease Drug-eluting stents placed in October. Patient will need cardiology clearance prior to her undergoing surgery to see if she can be off of the Plavix. Greater than 35 minutes of which greater than 50% of time was discussed with the patient about her pain control and focusing on function with pain medications but also reinforcing the fact that this is not new process for her as is been going on for several months now. Code Visit Inpatient E&M: 70392 Subs Hosp L3
--- NOTE | 2017-07-18 13:30 | PN_ITS ---
Patient Problems: Active and Suspected Problems (Last Reviewed 06/10/17 @ 10:08 by Jennifer Duvall) Right hip pain (Acute) Subjective: Says that she cannot go home because of her pain and with a help there is glottic is helps put her to sleep. Told that I will be discontinuing the Dilaudid she has for 1 more dose. I told her would not oblige but would focus on oral treatment of her pain control. Vitals/I&O's: Vital Signs Temp Pulse Resp BP Pulse Ox 37.0 C 88 18 116/72 94 07/18/17 09:08 07/18/17 10:36 07/18/17 09:08 07/18/17 09:08 07/18/17 09:08 Oxygen Delivery Method Room Air Weight: 88.7 kg Body Mass Index (BMI) 32.5 Intake and Output for Last 24 Hours 07/16/17 07/17/17 07/18/17 23:59 23:59 23:59 Intake Total 1500 / 1500 1260 / 1260 Balance 1500 / 1500 1260 / 1260 General: Alert, No apparent distress, - - Became tearful at one point Neurological: - - Patient seen walking with physical therapy with walker and gait seem to be stable with that. Psych/Mental Status: Anxious Current Medications Aspirin (Aspirin, Baby) 81 mg PO DAILY@0800 [facility] Last Admin: 07/18/17 09:17 Dose: 81 mg Atorvastatin Calcium (Lipitor) 80 mg PO DAILY@2200 [facility] Last Admin: 07/18/17 00:23 Dose: Not Given Clopidogrel Bisulfate (Plavix) 75 mg PO DAILY [facility] Last Admin: 07/18/17 10:36 Dose: 75 mg Diphenhydramine HCl (Benadryl) 50 mg PO QHS [facility] Last Admin: 07/18/17 00:02 Dose: 50 mg Furosemide (Lasix) 20 mg PO DAILY [facility] Last Admin: 07/18/17 10:36 Dose: 20 mg Gabapentin (Neurontin) 800 mg PO 4X/DAYCM [facility] Last Admin: 07/18/17 12:37 Dose: 800 mg Lisinopril (Zestril) 20 mg PO DAILY [facility] Last Admin: 07/18/17 10:36 Dose: 20 mg Metoprolol Tartrate (Lopressor (Beta Ha)) 25 mg PO BID [facility] Last Admin: 07/18/17 10:36 Dose: 25 mg Oxycodone HCl (Oxyir) 15 mg PO Q4H PRN PRN PRN Reason: MOD-SEVERE PAIN (4-10/10) Last Admin: 07/18/17 13:18 Dose: 15 mg Sodium Chloride () 5 - 30 ml IV UD PRN PRN Reason: SALINE FLUSH Last Admin: 07/18/17 10:36 Dose: 10 ml Tizanidine HCl (Zanaflex) 4 mg PO TID [facility] Last Admin: 07/18/17 13:18 Dose: 4 mg Trazodone HCl (Desyrel) 200 mg PO QHS [facility] Last Admin: 07/18/17 00:03 Dose: 200 mg Medical Necessity - Tobacco Use Smoking Status: Current every day smoker Tobacco Use: Cigarettes Assessment/Plan Active and Suspected Problems (Last Reviewed 06/10/17 @ 10:08 by Jennifer Duvall) Right hip pain (Acute) 1. Right hip avascular necrosis * Patient to follow-up with Dr. Nascimento as outpatient for surgical intervention. * Patient giving me some conflicting information. Patient was stating that she was told by orthopedics that she would need to stay in the hospital for several days to get her pain under control and but and she was asking for an additional dose of Dilaudid before I would discontinue it. I told her I was very concerned about her requesting completing further Dilaudid. I told her that we would try to focus on her pain control as much as possible. Patient then went on to talk about her back pain and then her neck pain and how she is seeing spine surgery as well as pain management for this. I told her the goal is to get her functional but we are not going to completely make her pain-free. Told the patient I have no doubts about her having pain but the goal is to get her home. * Confounding this is a patient was seen up ambulating and in no distress and was talking with the physical therapist by myself. Patient was also seen by other providers as well and that she appear to be in no distress. * I did review the patient's OARRS and she did receive 84 7.5/[address] Fitzpatrick on June 30 and then she did receive 800 mg of gabapentin with a quantity 112 on 15 July. * I am concerned about the patient's request for pain medications and trigger with IV pain medication almost pleading. Plan is to continue with the oxycodone. Patient was already seeing Dr. Correa for this pain as his pain is been going on for 6 months. Him since he not can change anything in regards her medications as she is on Neurontin well as Percocet. Plan is for the patient to go home with a walker and then to follow-up with cardiology and orthopedics for revision of her right hip. 2. Coronary artery disease * Drug-eluting stents placed in October. Patient will need cardiology clearance prior to her undergoing surgery to see if she can be off of the Plavix. Greater than 35 minutes of which greater than 50% of time was discussed with the patient about her pain control and focusing on function with pain medications but also reinforcing the fact that this is not new process for her as is been going on for several months now. Code Visit Inpatient E&M: 90867 Subs Hosp L3
--- NOTE | 2017-07-19 00:31 | NUR.TO.PHY ---
Went to room to notify patient of nighttime MD order of PRN Motrin following home dosing. Patient asleep, snoring, not awakened by noise made by this nurse turning off light and removing I/O paper from room.
[2017-07-19] MEDS: oxyCODONE 5 MG Tablet 15 MG PO ×6 (01:44→23:03)
[2017-07-19] MEDS: traZODone 100 MG Tablet 200 MG PO (01:47)
[2017-07-19] MEDS: DiphenhydrAMINE 25 MG Capsule 50 MG PO (01:47)
[2017-07-19 01:54] VITALS: BP 131/74; PULSE 87; RESP 16; TEMP 36.6; O2SAT 96
[2017-07-19] MEDS: tiZANidine HCl 2 MG Tablet 4 MG PO ×3 (06:30→21:52)
--- NOTE | 2017-07-19 06:30 | NUR.TO.PHY ---
Patient awakened this AM by this nurse for 0600 Zanaflex. Patient then asked Do you have any pain meds for me? I replied asking- if I had to wake her from sleep how severe her pain was. Patient became very upset with nurse, and stated firmly, I am either sleeping, in pain or , give me my pain medications, its a 10/10 Oxyir was given @ this time. Patient also set up for shower @ her request.
[2017-07-19] MEDS: Gabapentin 800 MG Tablet PO ×4 (08:21→21:52)
[2017-07-19] MEDS: Aspirin 81 MG TAB.CHEW PO (08:21)
[2017-07-19 08:30] VITALS: BP 124/92; PULSE 106; RESP 18; TEMP 36.5; O2SAT 96
--- NOTE | 2017-07-19 10:27 | PCM.PN.HOSP ---
Patient Problems: Active and Suspected Problems (Last Reviewed 06/10/17 @ 10:08 by Jennifer Duvall) Right hip pain (Acute) Subjective: With significant right hip pain. Patient concerned about the avascular necrosis extending down to her femur and down to her tibia and fibula and is concerned about having an amputation of her right leg. Was asking questions specific to the pathophysiology of avascular necrosis. There which I told her I did not have the information readily available to me but inquired if she had ask Dr. Nascimento about this to it she said she did not. Vitals/I&O's: Vital Signs Temp Pulse Resp BP Pulse Ox 36.5 C L 106 H 18 124/92 H 96 07/19/17 08:30 07/19/17 08:30 07/19/17 08:30 07/19/17 08:30 07/19/17 08:30 Oxygen Delivery Method Room Air Weight: 88.7 kg Body Mass Index (BMI) 32.5 Intake and Output for Last 24 Hours 07/17/17 07/18/17 07/19/17 23:59 23:59 23:59 Intake Total 1500 / 1500 1870 / 1870 200 / 200 Balance 1500 / 1500 1870 / 1870 200 / 200 General: Alert, - - Up at the side of the bed. Tearful. HEENT: Atraumatic, Normocephalic Current Medications Aspirin (Aspirin, Baby) 81 mg PO DAILY@0800 [facility] Last Admin: 07/19/17 08:21 Dose: 81 mg Clopidogrel Bisulfate (Plavix) 75 mg PO DAILY [facility] Last Admin: 07/18/17 10:36 Dose: 75 mg Diphenhydramine HCl (Benadryl) 50 mg PO QHS [facility] Last Admin: 07/19/17 01:47 Dose: 50 mg Furosemide (Lasix) 20 mg PO DAILY [facility] Last Admin: 07/18/17 10:36 Dose: 20 mg Gabapentin (Neurontin) 800 mg PO 4X/DAYCM [facility] Last Admin: 07/19/17 08:21 Dose: 800 mg Lisinopril (Zestril) 20 mg PO DAILY [facility] Last Admin: 07/18/17 10:36 Dose: 20 mg Metoprolol Tartrate (Lopressor (Beta Ha)) 25 mg PO BID [facility] Last Admin: 07/18/17 21:23 Dose: 25 mg Oxycodone HCl (Oxyir) 15 mg PO Q4H PRN PRN PRN Reason: MOD-SEVERE PAIN (4-10/10) Last Admin: 07/19/17 06:30 Dose: 15 mg Rosuvastatin Calcium (Crestor) 40 mg PO DAILY [facility] Sodium Chloride () 5 - 30 ml IV UD PRN PRN Reason: SALINE FLUSH Last Admin: 07/18/17 10:36 Dose: 10 ml Tizanidine HCl (Zanaflex) 4 mg PO TID [facility] Last Admin: 07/19/17 06:30 Dose: 4 mg Trazodone HCl (Desyrel) 200 mg PO QHS [facility] Last Admin: 07/19/17 01:47 Dose: 200 mg Medical Necessity - Tobacco Use Smoking Status: Current every day smoker Tobacco Use: Cigarettes Assessment/Plan Active and Suspected Problems (Last Reviewed 06/10/17 @ 10:08 by Jennifer Duvall) Right hip pain (Acute) 1. Right hip avascular necrosis Patient to follow-up with Dr. Nascimento as outpatient for surgical intervention. Patient giving me some conflicting information. Patient was stating that she was told by orthopedics that she would need to stay in the hospital for several days to get her pain under control and but and she was asking for an additional dose of Dilaudid before I would discontinue it. I told her I was very concerned about her requesting completing further Dilaudid. I told her that we would try to focus on her pain control as much as possible. Patient then went on to talk about her back pain and then her neck pain and how she is seeing spine surgery as well as pain management for this. I told her the goal is to get her functional but we are not going to completely make her pain-free. Told the patient I have no doubts about her having pain but the goal is to get her home. Confounding this is a patient was seen up ambulating and in no distress and was talking with the physical therapist by myself. Patient was also seen by other providers as well and that she appear to be in no distress. I did review the patient's OARRS and she did receive 84 7.5/[address] Fitzpatrick on June 30 and then she did receive 800 mg of gabapentin with a quantity 112 on 15 July. I am concerned about the patient's request for pain medications and trigger with IV pain medication almost pleading. Plan is to continue with the oxycodone. Patient was already seeing Dr. Fitzpatrick for this pain as his pain is been going on for 6 months. Him since he not can change anything in regards her medications as she is on Neurontin well as Percocet. Plan is for the patient to go home with a walker and then to follow-up with cardiology and orthopedics for revision of her right hip. Patient stated that she is unable to go home and physical therapy did recommend skilled for her. So tentatively, plan will be for the [facility] if that works out the [facility] which I am not sure well. And I am not sure patient will qualify as patient was noted to be ambulating in the hallway with physical therapy. When I did evaluate see her in the hallway patient did walk with a limp but she appear to be in no distress and was communicating freely with the physical therapist. I have no question the patient is having pain in her right hip But I am concerned about the patient's request for pain medications. Patient's pain is been going on for months and patient has been seeing pain management for this and is receiving controlled substances through pain management as recently as June 30. Patient has been seen ambulating and in no duress though stand that she is not able to go home. And patient has been seen ambulating by other ancillary staff and patient appear to be comfortable. I will have Dr. Fitzpatrick come to evaluate her and make further recommendations. 2. Coronary artery disease Drug-eluting stents placed in October. Patient will need cardiology clearance prior to her undergoing surgery to see if she can be off of the Plavix. Code Visit Inpatient E&M: 10227 [facility] L1
--- NOTE | 2017-07-19 10:31 | PN_ITS ---
Patient Problems: Active and Suspected Problems (Last Reviewed 06/10/17 @ 10:08 by Jennifer Duvall) Right hip pain (Acute) Subjective: With significant right hip pain. Patient concerned about the avascular necrosis extending down to her femur and down to her tibia and fibula and is concerned about having an amputation of her right leg. Was asking questions specific to the pathophysiology of avascular necrosis. There which I told her I did not have the information readily available to me but inquired if she had ask Dr. Nascimento about this to it she said she did not. Vitals/I&O's: Vital Signs Temp Pulse Resp BP Pulse Ox 36.5 C L 106 H 18 124/92 H 96 07/19/17 08:30 07/19/17 08:30 07/19/17 08:30 07/19/17 08:30 07/19/17 08:30 Oxygen Delivery Method Room Air Weight: 88.7 kg Body Mass Index (BMI) 32.5 Intake and Output for Last 24 Hours 07/17/17 07/18/17 07/19/17 23:59 23:59 23:59 Intake Total 1500 / 1500 1870 / 1870 200 / 200 Balance 1500 / 1500 1870 / 1870 200 / 200 General: Alert, - - Up at the side of the bed. Tearful. HEENT: Atraumatic, Normocephalic Current Medications Aspirin (Aspirin, Baby) 81 mg PO DAILY@0800 [facility] BEDS AT [facility] Last Admin: 07/19/17 08:21 Dose: 81 mg Clopidogrel Bisulfate (Plavix) 75 mg PO DAILY [facility]CLUDE 234 BEDS AT [facility] Last Admin: 07/18/17 10:36 Dose: 75 mg Diphenhydramine HCl (Benadryl) 50 mg PO QHS [facility] 234 BEDS AT [facility] Last Admin: 07/19/17 01:47 Dose: 50 mg Furosemide (Lasix) 20 mg PO DAILY [facility] 234 BEDS AT [facility] Last Admin: 07/18/17 10:36 Dose: 20 mg Gabapentin (Neurontin) 800 mg PO 4X/DAYCM [facility]CLUDE 234 BEDS AT [facility] Last Admin: 07/19/17 08:21 Dose: 800 mg Lisinopril (Zestril) 20 mg PO DAILY [facility] 234 BEDS AT [facility] Last Admin: 07/18/17 10:36 Dose: 20 mg Metoprolol Tartrate (Lopressor (Beta Ha)) 25 mg PO BID [facility] 234 B[facility]S AT [facility] Last Admin: 07/18/17 21:23 Dose: 25 mg Oxycodone HCl (Oxyir) 15 mg PO Q4H PRN PRN PRN Reason: MOD-SEVERE PAIN (4-10/10) Last Admin: 07/19/17 06:30 Dose: 15 mg Rosuvastatin Calcium (Crestor) 40 mg PO DAILY [facility]CLUDE 234 BEDS AT [facility] Sodium Chloride () 5 - 30 ml IV UD PRN PRN Reason: SALINE FLUSH Last Admin: 07/18/17 10:36 Dose: 10 ml Tizanidine HCl (Zanaflex) 4 mg PO TID [facility] 234 BEDS AT [facility] Last Admin: 07/19/17 06:30 Dose: 4 mg Trazodone HCl (Desyrel) 200 mg PO QHS [facility]CLUDE 234 BEDS AT [facility] Last Admin: 07/19/17 01:47 Dose: 200 mg Medical Necessity - Tobacco Use Smoking Status: Current every day smoker Tobacco Use: Cigarettes Assessment/Plan Active and Suspected Problems (Last Reviewed 06/10/17 @ 10:08 by Jennifer Duvall) Right hip pain (Acute) 1. Right hip avascular necrosis * Patient to follow-up with Dr. Nascimento as outpatient for surgical intervention. * Patient giving me some conflicting information. Patient was stating that she was told by orthopedics that she would need to stay in the hospital for several days to get her pain under control and but and she was asking for an additional dose of Dilaudid before I would discontinue it. I told her I was very concerned about her requesting completing further Dilaudid. I told her that we would try to focus on her pain control as much as possible. Patient then went on to talk about her back pain and then her neck pain and how she is seeing spine surgery as well as pain management for this. I told her the goal is to get her functional but we are not going to completely make her pain-free. Told the patient I have no doubts about her having pain but the goal is to get her home. * Confounding this is a patient was seen up ambulating and in no distress and was talking with the physical therapist by myself. Patient was also seen by other providers as well and that she appear to be in no distress. * I did review the patient's OARRS and she did receive 84 7.5/[address] Fitzpatrick on June 30 and then she did receive 800 mg of gabapentin with a quantity 112 on 15 July. * I am concerned about the patient's request for pain medications and trigger with IV pain medication almost pleading. Plan is to continue with the oxycodone. Patient was already seeing Dr. Fitzpatrick for this pain as his pain is been going on for 6 months. Him since he not can change anything in regards her medications as she is on Neurontin well as Percocet. Plan is for the patient to go home with a walker and then to follow-up with cardiology and orthopedics for revision of her right hip. * Patient stated that she is unable to go home and physical therapy did recommend skilled for her. So tentatively, plan will be for the patient to go to [facility] facility if that works out the [employer] which I am not sure well. And I am not sure patient will qualify as patient was noted to be ambulating in the hallway with physical therapy. When I did evaluate see her in the hallway patient did walk with a limp but she appear to be in no distress and was communicating freely with the physical therapist. I have no question the patient is having pain in her right hip * But I am concerned about the patient's request for pain medications. Patient' s pain is been going on for months and patient has been seeing pain management for this and is receiving controlled substances through pain management as recently as June 30. Patient has been seen ambulating and in no duress though stand that she is not able to go home. And patient has been seen ambulating by other ancillary staff and patient appear to be comfortable. * I will have Dr. Fitzpatrick come to evaluate her and make further recommendations. 2. Coronary artery disease * Drug-eluting stents placed in October. Patient will need cardiology clearance prior to her undergoing surgery to see if she can be off of the Plavix. Code Visit Inpatient E&M: 60120 Subs Hosp L1
[2017-07-19] MEDS: Lisinopril 20 MG Tablet PO (10:49)
[2017-07-19] MEDS: Furosemide 20 MG Tablet PO (10:50)
[2017-07-19] MEDS: Clopidogrel Bisulfate 75 MG Tablet PO (10:50)
[2017-07-19] MEDS: ROSUVASTATIN CALCIUM 40 MG TABLET PO (10:51)
[2017-07-19 10:58] VITALS: BP 116/74; PULSE 97
[2017-07-19] MEDS: Metoprolol Tartrate 25 MG Tablet PO ×2 (10:58→21:52)
--- NOTE | 2017-07-19 12:52 | RAD_ITS ---
STUDY: X-RAY - RIGHT TIBIA AND FIBULA REASON FOR EXAM: Female, 57 years old. Pain TECHNIQUE: 2 view(s) of the tibia and fibula were obtained. COMPARISON: None. FINDINGS: There is no evidence of fracture or dislocation. There are no significant degenerative changes. There are no radiodense foreign bodies. RAD/Tibia & Fibula 2 Views IMPRESSION: No fracture or dislocation in the right tibia or fibula. Electronically Signed: Enrique Breaux, at 14:56 EDT Tel , Service support ,
[2017-07-19 15:09] VITALS: BP 125/82; PULSE 88; RESP 16; TEMP 36.7; O2SAT 97
--- NOTE | 2017-07-19 16:34 | NURSING ---
Patient angry that bed alarm on, wants it off. This nurse agreed with patient, OK to have bed alarm off, however patient must call out, using call light, before getting up. Patient agreed.
--- NOTE | 2017-07-19 18:50 | NURSING ---
This RN walked into patients room and patient was up to the bathroom. When this nurse asked the patient if she called for assistance she stated no, I forgot. This nurse asked the patient if she had fallen recently and admitted to this nurse that she has fallen 2 months ago. Fall risk assessment edited, and resulted a high risk patient for falling. This nurse explained to patient that the bed alarm would be turned back on. This nurse explained to the patient that this is for safety and to remind her not to get up without the assistance of a nurse or staff member. The patient became angry with this nurse and stated that no one told her the bed alarm would be turned on, and that we need to be telling patients when the bed alarm is on. This nurse explained to the patient that the bed alarm was on this morning at the start of shift and apologized to patient that she was not informed of the bed alarm. This nurse reminded patient that earlier when she expressed anger towards the bed alarm being on, we had turned it off and had told her to call for a nurse or staff member before getting up, however she did not call for help, so the bed alarm will be turned on for her safety and we as a unit and hospital do not want patient to fall. Patient agreed to call for help before getting up.
[2017-07-19 21:49] VITALS: BP 128/90; PULSE 88; RESP 16; TEMP 36.2; O2SAT 97
[2017-07-19 21:52] VITALS: BP 128/90; PULSE 88
[2017-07-20] VITALS (8 sets, daily range): BP systolic 115–131; BP diastolic 67–89; PULSE 80–90; RESP 16–18; TEMP 36.6–36.8; O2SAT 93–97
[2017-07-20] MEDS: DiphenhydrAMINE 25 MG Capsule 50 MG PO (02:15)
[2017-07-20] MEDS: traZODone 100 MG Tablet 200 MG PO (02:15)
[2017-07-20] MEDS: oxyCODONE 5 MG Tablet 15 MG PO ×5 (04:32→20:40)
[2017-07-20] MEDS: tiZANidine HCl 2 MG Tablet 4 MG PO ×3 (07:01→20:44)
[2017-07-20] MEDS: Metoprolol Tartrate 25 MG Tablet PO ×2 (08:04→20:43)
[2017-07-20] MEDS: Gabapentin 800 MG Tablet PO ×4 (08:04→20:44)
[2017-07-20] MEDS: Furosemide 20 MG Tablet PO (08:04)
[2017-07-20] MEDS: Aspirin 81 MG TAB.CHEW PO (08:05)
[2017-07-20] MEDS: ROSUVASTATIN CALCIUM 40 MG TABLET PO (08:05)
[2017-07-20] MEDS: Clopidogrel Bisulfate 75 MG Tablet PO (08:05)
[2017-07-20] MEDS: Lisinopril 20 MG Tablet PO (08:07)
--- NOTE | 2017-07-20 09:12 | PCM.PN.HOSP ---
Patient Problems: Active and Suspected Problems (Last Reviewed 06/10/17 @ 10:08 by Jennifer Duvall) Right hip pain (Acute) Subjective: With continued discomfort to the hip with recent evaluation per orthopedic surgery with noted avascular necrosis with recommendation for eventual elective replacement. Patient notes ongoing difficult to sleeping and pain but improving since initial presentation. Discussed plan of care which includes Dr. Fitzpatrick consultation and following this likely discharge to home with therapies outpatient as patient progressing well with narcotic regimen and any intervention per Dr. Fitzpatrick. Patient amenable to follow-up with orthopedic surgery outpatient for set up for elective surgery, possibly at tertiary facility given severity of appearance but noted that this would need to be discussed with surgery. Patient denies fevers, chills, nausea, emesis, abdominal pain, chest pain or dyspnea. Objective: Physical Examination: General: awake, alert, oriented x 3 and cooperative, seated upright in bedside chair, in no apparent distress. Skin: normal color, turgor, no icterus, cyanosis. HEENT: AT/NC, EOMI, PERRLA, MMM. Lungs: CTA bilaterally, moderate effort, mild decrease BL bases, no rales, ronchi or wheezing. Heart: Regular rate and rhythm; no gallop, rub audible. Abdomen: soft, obese, NTTP, ND, normal BS. Extremities: no cyanosis, clubbing, notable discomfort to the R hip, primarily with usage, worse w/ certain positioning, improving w/ therapies w/ walker, standy assist. Neurological: patient awake, alert, oriented x 3; cognitive function intact; pupils equally reactive to light and accomodation; cranial nerves II-XII grossly normal, moving all 4 extremities but still limited RLE w/ AVN, strength improving, moderately to severely globally decreased. Psychiatric: affect appears normal, no acute evidence of depressive or anxiety feelings. Vitals/I&O's: Vital Signs Temp Pulse Resp BP Pulse Ox 97.8 F 80 18 131/89 H 94 07/20/17 07:51 07/20/17 08:04 07/20/17 07:51 07/20/17 07:51 07/20/17 07:51 Oxygen Delivery Method Room Air Weight: 195 lb 8.8 oz Body Mass Index (BMI) 32.5 Intake and Output for Last 24 Hours 07/18/17 07/19/17 07/20/17 23:59 23:59 23:59 Intake Total 1870 / 1870 1200 / 1200 Balance 187 / 1870 1200 / 1200 Current Medications Aspirin (Aspirin, Baby) 81 mg PO DAILY@0800 [facility] Last Admin: 07/20/17 08:05 Dose: 81 mg Clopidogrel Bisulfate (Plavix) 75 mg PO DAILY [facility] Last Admin: 07/20/17 08:05 Dose: 75 mg Diphenhydramine HCl (Benadryl) 50 mg PO QHS [facility] Last Admin: 07/20/17 02:15 Dose: 50 mg Furosemide (Lasix) 20 mg PO DAILY [facility] Last Admin: 07/20/17 08:04 Dose: 20 mg Gabapentin (Neurontin) 800 mg PO 4X/DAYCM [facility] Last Admin: 07/20/17 08:04 Dose: 800 mg Lisinopril (Zestril) 20 mg PO DAILY [facility] Last Admin: 07/20/17 08:07 Dose: 20 mg Metoprolol Tartrate (Lopressor (Beta Ha)) 25 mg PO BID [facility] Last Admin: 07/20/17 08:04 Dose: 25 mg Oxycodone HCl (Oxyir) 15 mg PO Q4H PRN PRN PRN Reason: MOD-SEVERE PAIN (4-10/10) Last Admin: 07/20/17 08:32 Dose: 15 mg Rosuvastatin Calcium (Crestor) 40 mg PO DAILY [facility] Last Admin: 07/20/17 08:05 Dose: 40 mg Sodium Chloride () 5 - 30 ml IV UD PRN PRN Reason: SALINE FLUSH Last Admin: 07/18/17 10:36 Dose: 10 ml Tizanidine HCl (Zanaflex) 4 mg PO TID [facility] Last Admin: 07/20/17 07:01 Dose: 4 mg Trazodone HCl (Desyrel) 200 mg PO QHS [facility] Last Admin: 07/20/17 02:15 Dose: 200 mg Medical Necessity - Tobacco Use Smoking Status: Current every day smoker Tobacco Use: Cigarettes Assessment/Plan Active and Suspected Problems (Last Reviewed 06/10/17 @ 10:08 by Jennifer Duvall) Right hip pain (Acute) The patient is a 57 y/o F w/ PMHx: CAD s/p PCI 10/2016, Tobacco use, Chronic back pain s/p intervention following w/ Pain Management Dr. Fitzpatrick, HTN, HLD, Obesity who presents to the [facility] ED on 07/17/17 with history of increasing right hip discomfort with inability to bear weight and abnormal hip sounds with movement she notes with ongoing hip injections and evaluation outpatient per orthopedic surgery. (1) Acute on chronic intractable right hip pain secondary to suspected avascular necrosis: Plain films in the ED w/ changes of the right hip secondary to avascular necrosis and compression of the femoral head although initially possible healed undisplaced patella femoral neck fracture with recreation for MRI follow-up. MRI demonstrated subchondral insufficiency fracture with subchondral collapse of the right femoral head, chondral loss of the right hip joint with joint effusion, bone edema of the right acetabulum, strain of the right gluteus minimus muscle, enchondroma in the right femoral neck. Dr. Nascimento, Orthopedic surgery evaluation performed with noted acute pain secondary to avascular necrosis with subchondral collapse with no acute fracture demonstrated which he notes will eventually require complete hip replacement on an elective basis. Orthopedic surgery requested transition to senior care facility once pain controlled and evaluation per Dr. Fitzpatrick completed with follow-up outpatient per her just with follow-up in their office and arrangement of intervention once medically appropriate. Will maintain on fall precautions, frequent positioning, IV/oral pain medication transitioned to oral regimen only w/ oral oxycodone and neurontin, concerns for malingering noted per director of midwifery/staff midwife and physicians, zanaflex scheduled, anti-emetics, bowel regimen. PT and OT for evaluation, initially planned SNF, she has been improving thus plan discharge to home with outpatient therapies. Dr. Fitzpatrick consulted, will see 07/21/17 and following will plan discharge. Given ongoing pain will add fentanyl patch pending Dr. Fitzpatrick evaluation. (2) CAD: s/p PCI Will continue home regimen asa, plavix, statin, BB. Follow-up Cardiology visit 07/21/17 with plan for pre-operative clearance and plavix discontinuation discussions for planned elective hip as noted. (3) Obesity: Weight loss and lifestyle changes encouraged. (4) Tobacco Abuse: Encouraged cessation, inpatient consultation per RT, NR if desired. (5) Hypertension: Continue home regimen including lasix, lisinopril, metoprolol, PRN hydralazine. (6) Hyperlipidemia: Continue home statin regimen. (7) DVT Prophylaxis: SCDs, add heparin given no operative plans w/ AM hold in case of intervention per Dr. Fitzpatrick. PROLONGED CARE TIME: Patient with several questions and concerns in care path, required return to room and several items of coordination with care team, re-discussion pain management and future planning intervention, SNF versus home therapies discussions, notably above initial 70 minutes evaluation: Prolonged care time: 65 minutes. Code Visit Inpatient E&M: 64045 Subs Hosp L2 Procedures: 35159 Prolonged InPt Service; first hour
--- NOTE | 2017-07-20 09:23 | PN_ITS ---
Patient Problems: Active and Suspected Problems (Last Reviewed 06/10/17 @ 10:08 by Jennifer Duvall) Right hip pain (Acute) Subjective: With continued discomfort to the hip with recent evaluation per orthopedic surgery with noted avascular necrosis with recommendation for eventual elective replacement. Patient notes ongoing difficult to sleeping and pain but improving since initial presentation. Discussed plan of care which includes Dr. Fitzpatrick consultation and following this likely discharge to home with therapies outpatient as patient progressing well with narcotic regimen and any intervention per Dr. Fitzpatrick. Patient amenable to follow-up with orthopedic surgery outpatient for set up for elective surgery, possibly at tertiary facility given severity of appearance but noted that this would need to be discussed with surgery. Patient denies fevers, chills, nausea, emesis, abdominal pain, chest pain or dyspnea. Objective: Physical Examination: General: awake, alert, oriented x 3 and cooperative, seated upright in bedside chair, in no apparent distress. Skin: normal color, turgor, no icterus, cyanosis. HEENT: AT/NC, EOMI, PERRLA, MMM. Lungs: CTA bilaterally, moderate effort, mild decrease BL bases, no rales, ronchi or wheezing. Heart: Regular rate and rhythm; no gallop, rub audible. Abdomen: soft, obese, NTTP, ND, normal BS. Extremities: no cyanosis, clubbing, notable discomfort to the R hip, primarily with usage, worse w/ certain positioning, improving w/ therapies w/ walker, standy assist. Neurological: patient awake, alert, oriented x 3; cognitive function intact; pupils equally reactive to light and accomodation; cranial nerves II-XII grossly normal, moving all 4 extremities but still limited RLE w/ AVN, strength improving, moderately to severely globally decreased. Psychiatric: affect appears normal, no acute evidence of depressive or anxiety feelings. Vitals/I&O's: Vital Signs Temp Pulse Resp BP Pulse Ox 97.8 F 80 18 131/89 H 94 07/20/17 07:51 07/20/17 08:04 07/20/17 07:51 07/20/17 07:51 07/20/17 07:51 Oxygen Delivery Method Room Air Weight: 195 lb 8.8 oz Body Mass Index (BMI) 32.5 Intake and Output for Last 24 Hours 07/18/17 07/19/17 07/20/17 23:59 23:59 23:59 Intake Total 1870 / 1870 1200 / 1200 Balance 187 / 1870 1200 / 1200 Current Medications Aspirin (Aspirin, Baby) 81 mg PO DAILY@0800 [facility] Last Admin: 07/20/17 08:05 Dose: 81 mg Clopidogrel Bisulfate (Plavix) 75 mg PO DAILY [facility] Last Admin: 07/20/17 08:05 Dose: 75 mg Diphenhydramine HCl (Benadryl) 50 mg PO QHS [facility] Last Admin: 07/20/17 02:15 Dose: 50 mg Furosemide (Lasix) 20 mg PO DAILY [facility] Last Admin: 07/20/17 08:04 Dose: 20 mg Gabapentin (Neurontin) 800 mg PO 4X/DAYCM [facility] Last Admin: 07/20/17 08:04 Dose: 800 mg Lisinopril (Zestril) 20 mg PO DAILY [facility] Last Admin: 07/20/17 08:07 Dose: 20 mg Metoprolol Tartrate (Lopressor (Beta Ha)) 25 mg PO BID [facility] Last Admin: 07/20/17 08:04 Dose: 25 mg Oxycodone HCl (Oxyir) 15 mg PO Q4H PRN PRN PRN Reason: MOD-SEVERE PAIN (4-10/10) Last Admin: 07/20/17 08:32 Dose: 15 mg Rosuvastatin Calcium (Crestor) 40 mg PO DAILY [facility] Last Admin: 07/20/17 08:05 Dose: 40 mg Sodium Chloride () 5 - 30 ml IV UD PRN PRN Reason: SALINE FLUSH Last Admin: 07/18/17 10:36 Dose: 10 ml Tizanidine HCl (Zanaflex) 4 mg PO TID [facility] Last Admin: 07/20/17 07:01 Dose: 4 mg Trazodone HCl (Desyrel) 200 mg PO QHS [facility] Last Admin: 07/20/17 02:15 Dose: 200 mg Medical Necessity - Tobacco Use Smoking Status: Current every day smoker Tobacco Use: Cigarettes Assessment/Plan Active and Suspected Problems (Last Reviewed 06/10/17 @ 10:08 by Jennifer Duvall) Right hip pain (Acute) The patient is a 57 y/o F w/ PMHx: CAD s/p PCI 10/2016, Tobacco use, Chronic back pain s/p intervention following w/ Pain Management Dr. Fitzpatrick, HTN, HLD, Obesity who presents to the [facility] ED on 07/17/17 with history of increasing right hip discomfort with inability to bear weight and abnormal hip sounds with movement she notes with ongoing hip injections and evaluation outpatient per orthopedic surgery. (1) Acute on chronic intractable right hip pain secondary to suspected avascular necrosis: Plain films in the ED w/ changes of the right hip secondary to avascular necrosis and compression of the femoral head although initially possible healed undisplaced patella femoral neck fracture with recreation for MRI follow-up. MRI demonstrated subchondral insufficiency fracture with subchondral collapse of the right femoral head, chondral loss of the right hip joint with joint effusion, bone edema of the right acetabulum, strain of the right gluteus minimus muscle, enchondroma in the right femoral neck. Dr. Nascimento , Orthopedic surgery evaluation performed with noted acute pain secondary to avascular necrosis with subchondral collapse with no acute fracture demonstrated which he notes will eventually require complete hip replacement on an elective basis. Orthopedic surgery requested transition to [facility] facility once pain controlled and evaluation per Dr. Fitzpatrick completed with follow-up outpatient per her just with follow-up in their office and arrangement of intervention once medically appropriate. Will maintain on fall precautions, frequent positioning, IV/oral pain medication transitioned to oral regimen only w/ oral oxycodone and neurontin, concerns for malingering noted per medical staff services coordinator and physicians, zanaflex scheduled, anti-emetics, bowel regimen. PT and OT for evaluation, initially planned SNF, she has been improving thus plan discharge to home with outpatient therapies. Dr. Fitzpatrick consulted, will see 07/21/17 and following will plan discharge. Given ongoing pain will add fentanyl patch pending Dr. Fitzpatrick evaluation. (2) CAD: s/p PCI Will continue home regimen asa, plavix, statin, BB. Follow-up Cardiology visit 07/21/17 with plan for pre-operative clearance and plavix discontinuation discussions for planned elective hip as noted. (3) Obesity: Weight loss and lifestyle changes encouraged. (4) Tobacco Abuse: Encouraged cessation, inpatient consultation per RT, NR if desired. (5) Hypertension: Continue home regimen including lasix, lisinopril, metoprolol , PRN hydralazine. (6) Hyperlipidemia: Continue home statin regimen. (7) DVT Prophylaxis: SCDs, add heparin given no operative plans w/ AM hold in case of intervention per Dr. Fitzpatrick. PROLONGED CARE TIME: Patient with several questions and concerns in care path, required return to room and several items of coordination with care team, re- discussion pain management and future planning intervention, SNF versus home therapies discussions, notably above initial 70 minutes evaluation: Prolonged care time: 65 minutes. Code Visit Inpatient E&M: 24338 Subs Hosp L2 Procedures: 98133 Prolonged InPt Service; first hour
[2017-07-20] MEDS: Heparin Injection (Vial) 5,000 UNIT/ML VIAL 5000 UNIT SC ×3 (10:24→20:46)
[2017-07-20] MEDS: Famotidine 20 MG Tablet PO ×2 (10:25→20:43)
--- NOTE | 2017-07-20 12:21 | NURSING ---
Dr. Landry informed per Noemi in Therapy, PT/OT did state they recommend pt be discharged home with outpt PT, pt is doing better today. DR. Fitzpatrick's nurse called upon Dr. Landry's request to see if Dr. Fitzpatrick can make it a priority to see pt first thing in a.m. and pt has an appointment w/ cardiology already scheduled and want to get her discharged for it. They stated they will inform Dr. Fitzpatrick of request
--- NOTE | 2017-07-20 12:46 | CASEMGMT ---
Social Work Note SW in to see pt to discuss discharge planning. Per, pt she would like to go home pending Dr. Fitzpatrick consult and if her pain is able to get under controlled. Dr. Fitzpatrick is seeing pt tomorrow. Pt states that if she is unable to get her pain controlled she would like to go to [facility] for short term placement. SW informed pt that this worker will make referral for [facility] and pt will need pre-cert. SW informed pt that if Dr. Fitzpatrick is able to help pt and she wants to go home this worker can cancel referral. Pt was receptive to this and state understanding. Per, Dr. Azul Landry she would like pt/ot to be consulted to see if pt can go home with outpatient therapy. Charge Nurse Cristina called pt/ot and per pt/ot pt is able to go home with outpatient therapy. Dr. Azul Landry states that she will discharge pt home with outpatient therapy. MAMADOU Burciaga completed outpatient therapy script and rollator script and provided scripts to pt. MAMADOU Burciaga updated pt of this information. Pt will be discharged home with outpatient therapy. This worker didn't have to make referral to [facility] as pt is no longer needing placement. Plan: Discharge home with outpatient therapy Cherelle Camacho [employer]ESSER, ORDER RUNNER
--- NOTE | 2017-07-20 15:48 | NURSING ---
pt informed this nurse reached out to DR. Nascimento as she requested and asked if he would round on her that she wanted to talk with him, informed pt verbalized he had signed off the case as he had estabilished a plan with her on thursday. Pt verbalized that she just had a miss call from Dr. Nascimento's office about setting up an appointment and she would just talk with them when she calls them back or goes to the follow up appointment. Pt discussed treatment plan as well as events occurring over the weekend. aware pt had already discussed with Len RN, assist.strategic marketing manager. Emotional support given. Pt verbalized pain controlled at this time, not having any adverse reactions to the fentanyl patch. Discussed that have contacted 's office regarding consult and requested he see her as early as possible tomorrow due to appointment with cardiology and attempt to get her discharged for appointment. approx. 20min spend with pt. pt denied all further needs or questions. call light within reach. Primary RN informed of conversation
[2017-07-21] MEDS: DiphenhydrAMINE 25 MG Capsule 50 MG PO (00:48)
[2017-07-21] MEDS: traZODone 100 MG Tablet 200 MG PO (00:49)
[2017-07-21] MEDS: oxyCODONE 5 MG Tablet 15 MG PO ×4 (00:49→13:32)
[2017-07-21 05:21] VITALS: BP 153/85; PULSE 83; RESP 20; TEMP 37.2; O2SAT 92
[2017-07-21] MEDS: tiZANidine HCl 2 MG Tablet 4 MG PO ×2 (05:27→13:32)
--- NOTE | 2017-07-21 07:24 | PCM.PN.HOSP ---
Patient Problems: Active and Suspected Problems (Last Reviewed 06/10/17 @ 10:08 by Jennifer Duvall) Right hip pain (Acute) Subjective: Patient with no acute events overnight per self and per nursing report. She does state that the pain has improved with low-dose fentanyl patch addition and she did not have any reaction with the adhesive on the patch which she has had in the past although remotely 2 years prior with different medication. Options and will increase to 25 mg with plan for discharge today with follow-up with cardiology she notes today as well as planned reassessment per orthopedic surgery on Thursday following cardiology clearance for arrangement of elective hip replacement. Dr. Fitzpatrick evaluation this morning with no intervention plans thus patient amenable for discharge to home with outpatient therapy. Patient denies fevers, chills, nausea, emesis, abdominal pain, chest pain or dyspnea. Objective: Physical Examination: General: awake, alert, oriented x 3 and cooperative, seated upright in bed, in no apparent distress. Skin: normal color, turgor, no icterus, cyanosis. HEENT: AT/NC, EOMI, PERRLA, MMM. Lungs: CTA bilaterally, moderate effort, mild decrease BL bases, no rales, ronchi or wheezing. Heart: Regular rate and rhythm; no gallop, rub audible. Abdomen: soft, obese, NTTP, ND, normal BS. Extremities: no cyanosis, clubbing, improved, able to move in bed more and less pain w/ usage R hip, but still present. Neurological: patient awake, alert, oriented x 3; cognitive function intact; pupils equally reactive to light and accomodation; cranial nerves II-XII grossly normal, moving all 4 extremities but still limited RLE w/ AVN but improved w/ better pain control, strength improving, remains moderately globally decreased. Psychiatric: affect appears normal, no acute evidence of depressive or anxiety feelings. Vitals/I&O's: Vital Signs Temp Pulse Resp BP Pulse Ox 99 F 83 20 H 153/85 H 92 07/21/17 05:21 07/21/17 05:21 07/21/17 05:21 07/21/17 05:21 07/21/17 05:21 Oxygen Delivery Method Room Air Weight: 195 lb 8.8 oz Body Mass Index (BMI) 32.5 Intake and Output for Last 24 Hours 07/19/17 07/20/1718 23:59 23:59 23:59 Intake Total 1200 / 1200 700 / 700 Balance 1200 / 1200 700 / 700 Current Medications Aspirin (Aspirin, Baby) 81 mg PO DAILY@0800 [facility] Last Admin: 07/20/17 08:05 Dose: 81 mg Clopidogrel Bisulfate (Plavix) 75 mg PO DAILY [facility] Last Admin: 07/20/17 08:05 Dose: 75 mg Diphenhydramine HCl (Benadryl) 50 mg PO QHS [facility] Last Admin: 07/21/17 00:48 Dose: 50 mg Diphenhydramine HCl (Benadryl) 50 mg IV Q4H PRN PRN PRN Reason: ITCHING Famotidine (Pepcid) 20 mg PO BID [facility] Last Admin: 07/20/17 20:43 Dose: 20 mg Fentanyl (Duragesic Patch) 12 mcg TRANSDERM. Q3D [facility] Last Admin: 07/20/17 14:47 Dose: 12 mcg Furosemide (Lasix) 20 mg PO DAILY [facility] Last Admin: 07/20/17 08:04 Dose: 20 mg Gabapentin (Neurontin) 800 mg PO 4X/DAYCM [facility] Last Admin: 07/20/17 20:44 Dose: 800 mg Heparin Sodium (Porcine) (Heparin Na) 5,000 unit SC Q8 [facility] Last Admin: 07/20/17 20:47 Dose: Not Given Lisinopril (Zestril) 20 mg PO DAILY [facility] Last Admin: 07/20/17 08:07 Dose: 20 mg Metoprolol Tartrate (Lopressor (Beta Ha)) 25 mg PO BID [facility] Last Admin: 07/20/17 20:43 Dose: 25 mg Oxycodone HCl (Oxyir) 15 mg PO Q4H PRN PRN PRN Reason: MOD-SEVERE PAIN (4-10/10) Last Admin: 07/21/17 05:27 Dose: 15 mg Rosuvastatin Calcium (Crestor) 40 mg PO DAILY [facility] Last Admin: 07/20/17 08:05 Dose: 40 mg Sodium Chloride () 5 - 30 ml IV UD PRN PRN Reason: SALINE FLUSH Last Admin: 07/18/17 10:36 Dose: 10 ml Tizanidine HCl (Zanaflex) 4 mg PO TID [facility] Last Admin: 07/21/17 05:27 Dose: 4 mg Trazodone HCl (Desyrel) 200 mg PO QHS [facility] Last Admin: 07/21/17 00:49 Dose: 200 mg Medical Necessity - Tobacco Use Smoking Status: Current every day smoker Tobacco Use: Cigarettes Assessment/Plan Active and Suspected Problems (Last Reviewed 06/10/17 @ 10:08 by Jennifer Duvall) Right hip pain (Acute) The patient is a 57 y/o F w/ PMHx: CAD s/p PCI 10/2016, Tobacco use, Chronic back pain s/p intervention following w/ Pain Management Dr. Fitzpatrick, HTN, HLD, Obesity who presents to the [facility] ED on 07/17/17 with history of increasing right hip discomfort with inability to bear weight and abnormal hip sounds with movement she notes with ongoing hip injections and evaluation outpatient per orthopedic surgery. (1) Acute on chronic intractable right hip pain secondary to suspected avascular necrosis: Plain films in the ED w/ changes of the right hip secondary to avascular necrosis and compression of the femoral head although initially possible healed undisplaced patella femoral neck fracture with recreation for MRI follow-up. MRI demonstrated subchondral insufficiency fracture with subchondral collapse of the right femoral head, chondral loss of the right hip joint with joint effusion, bone edema of the right acetabulum, strain of the right gluteus minimus muscle, enchondroma in the right femoral neck. Dr. Nascimento, Orthopedic surgery evaluation performed with noted acute pain secondary to avascular necrosis with subchondral collapse with no acute fracture demonstrated which he notes will eventually require complete hip replacement on an elective basis. Will maintain on fall precautions, frequent positioning, IV/oral pain medication transitioned to oral regimen only w/ oral oxycodone and neurontin, concerns for malingering noted per staff services manager and physicians but per discussion w/ Orthopedic surgery this is a very painful ongoing issue, thus 07/20/17 added low dose fentanyl patch for discharge planning w/ improvement with plan for mild increase to 25 mcg daily upon discharge, continue zanaflex scheduled, anti-emetics, bowel regimen. PT and OT for evaluation, initially planned SNF, she has been improving thus plan discharge to home with outpatient therapies. Dr. Fitzpatrick consulted, evaluation 07/21/17 AM with agreement with current interventions, no further interventions plan, amenable to discharge and plan for Cardiology follow-up for operative clearance and re-assessment Orthopedic surgery upcoming [place] for set-up elective hip. (2) CAD: s/p PCI, continue home regimen asa, plavix, statin, BB. Follow-up Cardiology visit 07/21/17 with plan for pre-operative clearance and plavix discontinuation discussions for planned elective hip as noted. (3) Obesity: Weight loss and lifestyle changes encouraged. (4) Tobacco Abuse: Encouraged cessation, inpatient consultation per RT, NR if desired. (5) Hypertension: Continue home regimen including lasix, lisinopril, metoprolol, PRN hydralazine. (6) Hyperlipidemia: Continue home statin regimen. (7) DVT Prophylaxis: SCDs, heparin.
--- NOTE | 2017-07-21 07:31 | PN_ITS ---
Patient Problems: Active and Suspected Problems (Last Reviewed 06/10/17 @ 10:08 by Jennifer Duvall) Right hip pain (Acute) Subjective: Patient with no acute events overnight per self and per nursing report. She does state that the pain has improved with low-dose fentanyl patch addition and she did not have any reaction with the adhesive on the patch which she has had in the past although remotely 2 years prior with different medication. Options and will increase to 25 mg with plan for discharge today with follow-up with cardiology she notes today as well as planned reassessment per orthopedic surgery on Thursday following cardiology clearance for arrangement of elective hip replacement. Dr. Fitzpatrick evaluation this morning with no intervention plans thus patient amenable for discharge to home with outpatient therapy. Patient denies fevers, chills, nausea, emesis, abdominal pain, chest pain or dyspnea. Objective: Physical Examination: General: awake, alert, oriented x 3 and cooperative, seated upright in bed, in no apparent distress. Skin: normal color, turgor, no icterus, cyanosis. HEENT: AT/NC, EOMI, PERRLA, MMM. Lungs: CTA bilaterally, moderate effort, mild decrease BL bases, no rales, ronchi or wheezing. Heart: Regular rate and rhythm; no gallop, rub audible. Abdomen: soft, obese, NTTP, ND, normal BS. Extremities: no cyanosis, clubbing, improved, able to move in bed more and less pain w/ usage R hip, but still present. Neurological: patient awake, alert, oriented x 3; cognitive function intact; pupils equally reactive to light and accomodation; cranial nerves II-XII grossly normal, moving all 4 extremities but still limited RLE w/ AVN but improved w/ better pain control, strength improving, remains moderately globally decreased. Psychiatric: affect appears normal, no acute evidence of depressive or anxiety feelings. Vitals/I&O's: Vital Signs Temp Pulse Resp BP Pulse Ox 99 F 83 20 H 153/85 H 92 07/21/17 05:21 07/21/17 05:21 07/21/17 05:21 07/21/17 05:21 07/21/17 05:21 Oxygen Delivery Method Room Air Weight: 195 lb 8.8 oz Body Mass Index (BMI) 32.5 Intake and Output for Last 24 Hours 07/19/17 07/20/1718 23:59 23:59 23:59 Intake Total 1200 / 1200 700 / 700 Balance 1200 / 1200 700 / 700 Current Medications Aspirin (Aspirin, Baby) 81 mg PO DAILY@0800 [facility] Last Admin: 07/20/17 08:05 Dose: 81 mg Clopidogrel Bisulfate (Plavix) 75 mg PO DAILY [facility] Last Admin: 07/20/17 08:05 Dose: 75 mg Diphenhydramine HCl (Benadryl) 50 mg PO QHS [facility] Last Admin: 07/21/17 00:48 Dose: 50 mg Diphenhydramine HCl (Benadryl) 50 mg IV Q4H PRN PRN PRN Reason: ITCHING Famotidine (Pepcid) 20 mg PO BID [facility] Last Admin: 07/20/17 20:43 Dose: 20 mg Fentanyl (Duragesic Patch) 12 mcg TRANSDERM. Q3D [facility] Last Admin: 07/20/17 14:47 Dose: 12 mcg Furosemide (Lasix) 20 mg PO DAILY [facility] Last Admin: 07/20/17 08:04 Dose: 20 mg Gabapentin (Neurontin) 800 mg PO 4X/DAYCM [facility] Last Admin: 07/20/17 20:44 Dose: 800 mg Heparin Sodium (Porcine) (Heparin Na) 5,000 unit SC Q8 [facility] Last Admin: 07/20/17 20:47 Dose: Not Given Lisinopril (Zestril) 20 mg PO DAILY [facility] Last Admin: 07/20/17 08:07 Dose: 20 mg Metoprolol Tartrate (Lopressor (Beta Ha)) 25 mg PO BID [facility] Last Admin: 07/20/17 20:43 Dose: 25 mg Oxycodone HCl (Oxyir) 15 mg PO Q4H PRN PRN PRN Reason: MOD-SEVERE PAIN (4-10/10) Last Admin: 07/21/17 05:27 Dose: 15 mg Rosuvastatin Calcium (Crestor) 40 mg PO DAILY [facility] Last Admin: 07/20/17 08:05 Dose: 40 mg Sodium Chloride () 5 - 30 ml IV UD PRN PRN Reason: SALINE FLUSH Last Admin: 07/18/17 10:36 Dose: 10 ml Tizanidine HCl (Zanaflex) 4 mg PO TID [facility] Last Admin: 07/21/17 05:27 Dose: 4 mg Trazodone HCl (Desyrel) 200 mg PO QHS [facility] Last Admin: 07/21/17 00:49 Dose: 200 mg Medical Necessity - Tobacco Use Smoking Status: Current every day smoker Tobacco Use: Cigarettes Assessment/Plan Active and Suspected Problems (Last Reviewed 06/10/17 @ 10:08 by Jennifer Duvall) Right hip pain (Acute) The patient is a 57 y/o F w/ PMHx: CAD s/p PCI 10/2016, Tobacco use, Chronic back pain s/p intervention following w/ Pain Management Dr. Fitzpatrick, HTN, HLD, Obesity who presents to the [facility] ED on 07/17/17 with history of increasing right hip discomfort with inability to bear weight and abnormal hip sounds with movement she notes with ongoing hip injections and evaluation outpatient per orthopedic surgery. (1) Acute on chronic intractable right hip pain secondary to suspected avascular necrosis: Plain films in the ED w/ changes of the right hip secondary to avascular necrosis and compression of the femoral head although initially possible healed undisplaced patella femoral neck fracture with recreation for MRI follow-up. MRI demonstrated subchondral insufficiency fracture with subchondral collapse of the right femoral head, chondral loss of the right hip joint with joint effusion, bone edema of the right acetabulum, strain of the right gluteus minimus muscle, enchondroma in the right femoral neck. Dr. Nascimento , Orthopedic surgery evaluation performed with noted acute pain secondary to avascular necrosis with subchondral collapse with no acute fracture demonstrated which he notes will eventually require complete hip replacement on an elective basis. Will maintain on fall precautions, frequent positioning, IV/ oral pain medication transitioned to oral regimen only w/ oral oxycodone and neurontin, concerns for malingering noted per waitstaff and physicians but per discussion w/ Orthopedic surgery this is a very painful ongoing issue, thus 07/20 added low dose fentanyl patch for discharge planning w/ improvement with plan for mild increase to 25 mcg daily upon discharge, continue zanaflex scheduled, anti-emetics, bowel regimen. PT and OT for evaluation, initially planned SNF, she has been improving thus plan discharge to home with outpatient therapies. Dr. Fitzpatrick consulted, evaluation 07/21/17 AM with agreement with current interventions, no further interventions plan, amenable to discharge and plan for Cardiology follow-up for operative clearance and re-assessment Orthopedic surgery upcoming [place] for set-up elective hip. (2) CAD: s/p PCI, continue home regimen asa, plavix, statin, BB. Follow-up Cardiology visit 07/21/17 with plan for pre-operative clearance and plavix discontinuation discussions for planned elective hip as noted. (3) Obesity: Weight loss and lifestyle changes encouraged. (4) Tobacco Abuse: Encouraged cessation, inpatient consultation per RT, NR if desired. (5) Hypertension: Continue home regimen including lasix, lisinopril, metoprolol , PRN hydralazine. (6) Hyperlipidemia: Continue home statin regimen. (7) DVT Prophylaxis: SCDs, heparin.
[2017-07-21 09:15] VITALS: BP 135/73; PULSE 87; RESP 18; TEMP 36.5; O2SAT 94
[2017-07-21 09:18] VITALS: PULSE 80
[2017-07-21] MEDS: Famotidine 20 MG Tablet PO (09:24)
[2017-07-21 09:25] VITALS: PULSE 82
[2017-07-21] MEDS: Gabapentin 800 MG Tablet PO ×2 (09:25→12:39)
[2017-07-21] MEDS: ROSUVASTATIN CALCIUM 40 MG TABLET PO (09:25)
[2017-07-21] MEDS: Metoprolol Tartrate 25 MG Tablet PO (09:25)
[2017-07-21] MEDS: Furosemide 20 MG Tablet PO (09:25)
[2017-07-21] MEDS: Aspirin 81 MG TAB.CHEW PO (09:26)
[2017-07-21] MEDS: Clopidogrel Bisulfate 75 MG Tablet PO (09:26)
[2017-07-21] MEDS: Lisinopril 20 MG Tablet PO (09:26)
[2017-07-21] MEDS: fentaNYL 25 MCG Patch TRANSDERM. (09:52)
--- NOTE | 2017-07-21 09:55 | NURSING ---
12 mcg duragesic patch removed and flushed, witnesses by Siri Caputo RN
--- NOTE | 2017-07-21 09:57 | NURSING ---
WITTNESS MAGY IVANNA WASTE 12MCG FENTYNAL PATCH IN TOILET
--- NOTE | 2017-07-21 10:07 | PCM.DC ---
- Discharge Diagnoses Current Active Problems: Current Active and Chronic Problems (Last Reviewed 06/10/17 @ 10:08 by Jennifer Duvall) (1) Acute on chronic intractable right hip pain secondary to suspected avascular necrosis (2) CAD s/p PCI (3) Obesity (4) Tobacco Abuse (5) Hypertension (6) Hyperlipidemia (7) Chronic Pain Syndrome You will use the following diet at home:: Cardiac Your food should be the consistency of: Regular Your liquids should be the consistency of: Regular/Thin Discharge Activity: May Not Drive, Use Walker May resume sexual activity in: - - Defer until pain improved and cleared per Orthopedic surgery. Weight Bearing Status: Weight bearing as tolerated Call your doctor if you observe: Fever of 101 or Higher, Inability to urinate, Inability to have a bowel movement, Shortness of breath, Dizziness, Fainting spells, Chest pain, Uncontrolled pain Instructions: ED Necrosis Avascular Femoral Head Allergies/Adverse Reactions: Allergies adhesive Adverse Reaction (Verified 07/18/17 16:42) Other baclofen Adverse Reaction (Verified 07/16/17 23:59) LETHARGY Medications to take at Discharge Furosemide [Lasix] 20 mg PO DAILY 09/16/16 Lisinopril [Zestril] 20 mg PO DAILY 09/16/16 traZODone [Desyrel] 200 mg PO QHS 09/16/16 Aspirin [Aspirin, Baby] 81 mg PO DAILY@0800 tab.chew 11/18/16 Clopidogrel Bisulfate [Plavix] 75 mg PO DAILY 30 Days tab 11/18/16 Tizanidine HCl [Zanaflex] 4 mg PO TID 11/25/16 DiphenhydrAMINE [Benadryl] 50 mg PO QHS 01/15/17 gabapentin 400 mg capsule 800 mg PO 4X/DAY 03/18/17 metoprolol tartrate 25 mg tablet 25 mg PO BID 60 Days #60 tab 05/25/17 rosuvastatin 40 mg tablet 40 mg PO DAILY 30 Days #30 tab 05/25/17 Oxycodone [Oxyir] 15 mg PO Q4H PRN PRN 3 Days #50 tablet 07/21/17 Senna/Docusate Sodium [Senokot-S] 2 tab PO DAILY #60 tab 07/21/17 fentaNYL patch [Duragesic patch] 25 mcg TRANSDERM. Q3D 3 Days #1 patch 07/21/17 The following prescriptions were given: Oxycodone [Oxyir] 15 mg PO Q4H PRN PRN 3 Days #50 tablet PRN Reason: Mod-Severe Pain (4-01/06) fentaNYL patch [Duragesic patch] 25 mcg TRANSDERM. Q3D 3 Days #1 patch Senna/Docusate Sodium [Senokot-S] 2 tab PO DAILY #60 tab Primary Care Physician: Bijan Doctor,Out of [Primary Care Provider] - Please follow up with your Primary Care Physician in: Follow-up with PCP within 3-5 days to review admission. Please Follow Up With: Ulises Varela MD When: Follow-up as arranged 07/21/17 for cardiac clearance. Please Follow Up With: Ronal Nascimento DO When: Follow-up as arranged 07/24/17 for set-up elective hip. Please Follow Up With: Mackenzie Fitzpatrick MD When: Arrange follow-up within 1-2 weeks. Proposed Discharge Date: 07/21/17
--- NOTE | 2017-07-21 10:11 | DS.PCM_ITS ---
Discharge Date and Diagnosis - Problem List Patient Problems: Active and Suspected Problems (Last Reviewed 06/10/17 @ 10:08 by Jennifer Duvall) Right hip pain (Acute) Date of Admission: 07/17/17 Date of Discharge: 07/21/17 - Primary Discharge Diagnosis Active and Suspected Problems (Last Reviewed 06/10/17 @ 10:08 by Jennifer Duvall) (1) Acute on chronic intractable right hip pain secondary to suspected avascular necrosis (2) CAD s/p PCI (3) Obesity (4) Tobacco Abuse (5) Hypertension (6) Hyperlipidemia (7) Chronic Pain Syndrome - Secondary Discharge Diagnosis Chronic Problems (Last Reviewed 06/10/17 @ 10:08 by Jennifer Duvall) Atherosclerosis of [place] coronary artery of [place] heart without angina pectoris (Chronic) Tobacco abuse (Chronic) H/O laminectomy (Chronic) Hypertension (Chronic) Hyperlipidemia (Chronic) Low back pain (Chronic) Hospital Course and Treatment Dr. Fitzpatrick Pain Management Dr. Nascimento Orthopedic surgery Operations: None Procedures: EKG Summary of Care Provided: The patient is a 57 y/o F w/ PMHx: CAD s/p PCI 10/2016, Tobacco use, Chronic back pain s/p intervention following w/ Pain Management Dr. Fitzpatrick, HTN, HLD, Obesity who presented to the [facility] ED on 07/17/17 with history of increasing right hip discomfort with inability to bear weight and abnormal hip sounds with movement she notes with ongoing hip injections and evaluation outpatient per orthopedic surgery. Plain films in the ED w/ changes of the right hip secondary to avascular necrosis and compression of the femoral head although initially possible healed undisplaced patella femoral neck fracture with recreation for MRI follow-up. MRI demonstrated subchondral insufficiency fracture with subchondral collapse of the right femoral head, chondral loss of the right hip joint with joint effusion, bone edema of the right acetabulum, strain of the right gluteus minimus muscle, enchondroma in the right femoral neck. Dr. Nascimento , Orthopedic surgery evaluation performed with noted acute pain secondary to avascular necrosis with subchondral collapse with no acute fracture demonstrated which he notes will eventually require complete hip replacement on an elective basis. Patient was maintained on fall precautions, frequent positioning, IV/oral pain medication transitioned to oral regimen only w/ oral oxycodone and neurontin with noted concerns for malingering; however, but per discussion w/ Orthopedic surgery they noted this diagnosis is notably painful, thus 07/20/17 added low dose fentanyl patch for discharge planning w/ improvement with increase to 25 mcg daily upon discharge, continued zanaflex scheduled, anti-emetics, bowel regimen. PT and OT for evaluation, initially planned SNF, improved discharged to home with outpatient therapies. Dr. Fitzpatrick consulted, evaluation 07/21/17 AM with agreement with current interventions, no further interventions plan, amenable to discharge and plan for Cardiology follow -up for operative clearance and re-assessment Orthopedic surgery upcoming Thursday for set-up elective hip. Discharge Activity: May Not Drive, Use Walker May resume sexual activity in: - - Defer until pain improved and cleared per Orthopedic surgery. Weight Bearing Status: Weight bearing as tolerated Call your doctor if you observe: Fever of 101 or Higher, Inability to urinate, Inability to have a bowel movement, Shortness of breath, Dizziness, Fainting spells, Chest pain, Uncontrolled pain Home Medications: Medications to take at Discharge Furosemide [Lasix] 20 mg PO DAILY 09/16/16 Lisinopril [Zestril] 20 mg PO DAILY 09/16/16 traZODone [Desyrel] 200 mg PO QHS 09/16/16 Aspirin [Aspirin, Baby] 81 mg PO DAILY@0800 tab.chew 11/18/16 Clopidogrel Bisulfate [Plavix] 75 mg PO DAILY 30 Days tab 11/18/16 Tizanidine HCl [Zanaflex] 4 mg PO TID 11/25/16 DiphenhydrAMINE [Benadryl] 50 mg PO QHS 01/15/17 gabapentin 400 mg capsule 800 mg PO 4X/DAY 03/18/17 metoprolol tartrate 25 mg tablet 25 mg PO BID 60 Days #60 tab 05/25/17 rosuvastatin 40 mg tablet 40 mg PO DAILY 30 Days #30 tab 05/25/17 Oxycodone [Oxyir] 15 mg PO Q4H PRN PRN 3 Days #50 tablet 07/21/17 Senna/Docusate Sodium [Senokot-S] 2 tab PO DAILY #60 tab 07/21/17 fentaNYL patch [Duragesic patch] 25 mcg TRANSDERM. Q3D 3 Days #1 patch 07/21/17 Following Prescrptions Were Given to Patient: Oxycodone [Oxyir] 15 mg PO Q4H PRN PRN 3 Days #50 tablet PRN Reason: Mod-Severe Pain (4-01/06) fentaNYL patch [Duragesic patch] 25 mcg TRANSDERM. Q3D 3 Days #1 patch Senna/Docusate Sodium [Senokot-S] 2 tab PO DAILY #60 tab Primary Care Physician: Bijan Doctor,Out of [Primary Care Provider] - Please follow up with your Primary Care Physician in: Follow-up with PCP within 3-5 days to review admission. Please Follow Up With: Ulises Varela MD When: Follow-up as arranged 07/21/17 for cardiac clearance. Please Follow Up With: Ronal Nascimento DO When: Follow-up as arranged 07/24/17 for set-up elective hip. Please Follow Up With: Mackenzie Fitzpatrick MD When: Arrange follow-up within 1-2 weeks. Patient Instructions: ED Necrosis Avascular Femoral Head Disposition: Home Minutes spent on discharge:: 35 Patient Condition:: Fair Medical Necessity - Tobacco Use Smoking Status: Current every day smoker Tobacco Use: Cigarettes Meaningful Use Info Meaningful Use Diagnoses (Choose all that apply): None applicable Code Visit Inpatient E&M: 86489 Disch Hosp
[2017-07-21] MEDS: Heparin Injection (Vial) 5,000 UNIT/ML VIAL 5000 UNIT SC (13:32)
--- NOTE | 2017-07-24 15:08 | CASEMGMT ---
MAMADOU DA SILVA Discharge Follow-up Phone Call: SHOSHANA: Lonnie Strata: 3 Call Date: 07/24/17 Discharge Date: 07/22/17 Time of Call: 1508 Duration: 5 Min Admitting Diagnosis: Right hip fracture Patient had called 07/23/17 to this RN CM stating that she was having trouble filling her script for rollator and needing additional information. MAMADOU DA SILVA stated that she would contact [facility], patient's preferred DME and follow up with needed information. Patient stated she had no further questions or concern regarding discharge instructions and was able to fill other prescriptions with no problems. Patient stated she already had follow-up appts scheduled. 07/24/17 MAMADOU DA SILVA called [facility] and provided additional clinical information for rollator script. MAMADOU DA SILVA updated patient with follow-up with [facility]. Patient stated she had no further needs at this time.
--- NOTE | 2017-07-28 14:27 | PCM.CONS.GEN ---
Reason for Consult Date of Consultation: 07/17/17 Reason for Consultation: right hip pain questionable fracture History of Present Illness: The patient is a 57 year old F that was admitted to the hospital under the hospitalist service because of severe right-sided hip pain and suspected femoral neck fracture. Patient previously saw Dr. Armenta in December for hip pain. X-rays at that time were negative. Patient had developed such severe pain in her hip and groin that she was unable to ambulate therefore she came to the ER. X-rays were obtained in the ER which revealed significant deformity to the femoral head and collapse of the femoral head. There was concern for a femoral neck fracture therefore she was admitted and orthopedics was consulted. This consultation was done on 07/17/2017 unfortunately the [employer] system was not functioning therefore his formal dictated consult is delayed. I did have a handwritten note in terms of my assessment and plan on the chart on that date. The following consultation does reflect my examination and thoughts on the date of the evaluation. Past Medical History Past Medical History (Chronic Problems): Chronic Problems (Last Reviewed 07/21/17 @ 14:54 by Ulises Varela MD) Atherosclerosis of [place] coronary artery of [place] heart without angina pectoris (Chronic) Tobacco abuse (Chronic) H/O laminectomy (Chronic) Hypertension (Chronic) Hyperlipidemia (Chronic) Low back pain (Chronic) Allergies adhesive Adverse Reaction (Verified 07/21/17 14:26) Other baclofen Adverse Reaction (Verified 07/21/17 14:26) LETHARGY Home Medications: Ambulatory Orders Medication Instructions Recorded Furosemide [Lasix] 20 mg PO DAILY 09/16/16 Lisinopril [Zestril] 20 mg PO DAILY 09/16/16 traZODone [Desyrel] 200 mg PO QHS 09/16/16 Aspirin [Aspirin, Baby] 81 mg PO DAILY@0800 tab.chew 11/18/16 Clopidogrel Bisulfate [Plavix] 75 mg PO DAILY 30 Days tab 11/18/16 Tizanidine HCl [Zanaflex] 4 mg PO TID 11/25/16 DiphenhydrAMINE [Benadryl] 50 mg PO QHS 01/15/17 gabapentin 400 mg capsule 800 mg PO 4X/DAY 03/18/17 metoprolol tartrate 25 mg tablet 25 mg PO BID 60 Days #60 tab 05/25/17 rosuvastatin 40 mg tablet 40 mg PO DAILY 30 Days #30 tab 05/25/17 Oxycodone [Oxyir] 15 mg PO Q4H PRN PRN 3 Days #50 tab 07/21/17 Senna/Docusate Sodium [Senokot-S] 2 tab PO DAILY #60 tab 07/21/17 fentaNYL patch [Duragesic patch] 25 mcg TRANSDERM. 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 Lives: With Family Smoking Status: Current every day smoker Tobacco Use: Cigarettes Alcohol: Occasional Drugs: None - *Family History Maternal History Items: Diabetes Paternal History Items: Hypertension Review of Systems Constitutional: Denies: Chills, Fever, Weight Change HEENT: Denies: Head Aches, Sinus Congestion, Sinus Drainage Cardiovascular: Denies: Chest Pain, Palpitations Respiratory: Denies: Cough, Shortness of breath at rest, Sputum production Gastrointestinal: Denies: Abdominal Pain, Nausea, Vomiting Genitourinary: Denies: Dysuria Musculoskeletal: Reports: - - See history of present illness Skin: Denies: Rash, Wounds Neurological: Denies: Numbness, Tingling, Focal weakness - Physical Exam General: Alert, Oriented x3, Cooperative HEENT: Atraumatic, Normocephalic Neck: Supple, No JVD Lungs: Normal air movement Cardiovascular: Regular rate Abdomen: Soft, Non Tender Musculoskeletal: - - Patient has severe pain with any type of movement of the right hip. External rotation is 30? internal rotation 0. Flexion 90?. Logroll is positive for pain. She is able to ambulate with assistance of a walker and protected weightbearing. 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 Also reviewed x-rays obtained from December 2016. Patient did not have any evidence of avascular necrosis in December. She has since that time developed severe collapse of the femoral head. MRI reveals evidence of avascular necrosis. Patient will require a total hip arthroplasty however given the fact that she recently had stents placed in October and unable to be taken off of Plavix she will have to have this delayed and will treat the patient symptomatically until such time cardiology feels that she is safe to be off of her Plavix. Dr. Fitzpatrick has been consulted to help with her pain control. Unfortunately this should be done in an elective fashion and not in an urgent fashion in order to decrease risk of complications. I did discuss this with the patient at length and she does express an understanding of this with me. She was instructed to follow-up in my office next week
--- NOTE | 2017-07-28 14:33 | CON.PCM_ITS ---
Reason for Consult Date of Consultation: 07/17/17 Reason for Consultation: right hip pain questionable fracture History of Present Illness: The patient is a 57 year old F that was admitted to the hospital under the hospitalist service because of severe right-sided hip pain and suspected femoral neck fracture. Patient previously saw Dr. Armenta in December for hip pain. X-rays at that time were negative. Patient had developed such severe pain in her hip and groin that she was unable to ambulate therefore she came to the ER. X-rays were obtained in the ER which revealed significant deformity to the femoral head and collapse of the femoral head. There was concern for a femoral neck fracture therefore she was admitted and orthopedics was consulted. This consultation was done on 07/17/2017 unfortunately the [employer] system was not functioning therefore his formal dictated consult is delayed. I did have a handwritten note in terms of my assessment and plan on the chart on that date. The following consultation does reflect my examination and thoughts on the date of the evaluation. Past Medical History Past Medical History (Chronic Problems): Chronic Problems (Last Reviewed 07/21/17 @ 14:54 by Ulises Varela MD) Atherosclerosis of [place] coronary artery of [place] heart without angina pectoris (Chronic) Tobacco abuse (Chronic) H/O laminectomy (Chronic) Hypertension (Chronic) Hyperlipidemia (Chronic) Low back pain (Chronic) Allergies adhesive Adverse Reaction (Verified 07/21/17 14:26) Other baclofen Adverse Reaction (Verified 07/21/17 14:26) LETHARGY Home Medications: Ambulatory Orders Medication Instructions Recorded Furosemide [Lasix] 20 mg PO DAILY 09/16/16 Lisinopril [Zestril] 20 mg PO DAILY 09/16/16 traZODone [Desyrel] 200 mg PO QHS 09/16/16 Aspirin [Aspirin, Baby] 81 mg PO DAILY@0800 tab.chew 11/18/16 Clopidogrel Bisulfate [Plavix] 75 mg PO DAILY 30 Days tab 11/18/16 Tizanidine HCl [Zanaflex] 4 mg PO TID 11/25/16 DiphenhydrAMINE [Benadryl] 50 mg PO QHS 01/15/17 gabapentin 400 mg capsule 800 mg PO 4X/DAY 03/18/17 metoprolol tartrate 25 mg tablet 25 mg PO BID 60 Days #60 tab 05/25/17 rosuvastatin 40 mg tablet 40 mg PO DAILY 30 Days #30 tab 05/25/17 Oxycodone [Oxyir] 15 mg PO Q4H PRN PRN 3 Days #50 tab 07/21/17 Senna/Docusate Sodium [Senokot-S] 2 tab PO DAILY #60 tab 07/21/17 fentaNYL patch [Duragesic patch] 25 mcg TRANSDERM. 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 Lives: With Family Smoking Status: Current every day smoker Tobacco Use: Cigarettes Alcohol: Occasional Drugs: None - *Family History Maternal History Items: Diabetes Paternal History Items: Hypertension Review of Systems Constitutional: Denies: Chills, Fever, Weight Change HEENT: Denies: Head Aches, Sinus Congestion, Sinus Drainage Cardiovascular: Denies: Chest Pain, Palpitations Respiratory: Denies: Cough, Shortness of breath at rest, Sputum production Gastrointestinal: Denies: Abdominal Pain, Nausea, Vomiting Genitourinary: Denies: Dysuria Musculoskeletal: Reports: - - See history of present illness Skin: Denies: Rash, Wounds Neurological: Denies: Numbness, Tingling, Focal weakness - Physical Exam General: Alert, Oriented x3, Cooperative HEENT: Atraumatic, Normocephalic Neck: Supple, No JVD Lungs: Normal air movement Cardiovascular: Regular rate Abdomen: Soft, Non Tender Musculoskeletal: - - Patient has severe pain with any type of movement of the right hip. External rotation is 30? internal rotation 0. Flexion 90?. Logroll is positive for pain. She is able to ambulate with assistance of a walker and protected weightbearing. 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 Also reviewed x- rays obtained from December 2016. Patient did not have any evidence of avascular necrosis in December. She has since that time developed severe collapse of the femoral head. MRI reveals evidence of avascular necrosis. Patient will require a total hip arthroplasty however given the fact that she recently had stents placed in October and unable to be taken off of Plavix she will have to have this delayed and will treat the patient symptomatically until such time cardiology feels that she is safe to be off of her Plavix. Dr. Fitzpatrick has been consulted to help with her pain control. Unfortunately this should be done in an elective fashion and not in an urgent fashion in order to decrease risk of complications. I did discuss this with the patient at length and she does express an understanding of this with me. She was instructed to follow-up in my office next week
== END 2017-07-21 13:51 | disposition home or self-care (01) | DRG 245 ==
LOC: ED 07-17 00:53 → MS3 07-17 03:09
PROVIDERS: Admitting Provider Internal Medicine; Emergency Provider Emergency Medicine; Visit Provider Family Medicine
DX: M87.9 Osteonecrosis, unspecified (principal); I25.10 Atherosclerotic heart disease of native coronary artery without angina pectoris; I10 Essential (primary) hypertension; M54.5 Low back pain; G89.29 Other chronic pain; M47.816 Spondylosis without myelopathy or radiculopathy, lumbar region; Z79.82 Long term (current) use of aspirin; Z79.02 Long term (current) use of antithrombotics/antiplatelets; Z79.891 Long term (current) use of opiate analgesic; Z79.899 Other long term (current) drug therapy; E78.5 Hyperlipidemia, unspecified; Z95.5 Presence of coronary angioplasty implant and graft; F17.210 Nicotine dependence, cigarettes, uncomplicated; E66.9 Obesity, unspecified; Z68.32 Body mass index [BMI] 32.0-32.9, adult; M25.551 Pain in right hip
CPT/HCPCS: 72195; 73502; 73590; 80053; 85025; 85610; 97116; 97163; 97165; 97530; 97535; 99282; 99406; J7040; A4216

== ENCOUNTER → 2017-08-03 16:05 | Outpatient (CLI) | payer MEDICAID, SELFPAY ==
--- NOTE | 2017-08-03 16:08 | VDLE_ITS ---
Reason For Study: Swelling RIGHT LEFT GSV is normal. GSV is normal. CFV is compressible, spontaneous, phasic, CFV is compressible, spontaneous, phasic, competent and demonstrates normal competent, and demonstrates normal augmentation. augmentation. FV is compressible, spontaneous, phasic, FV is compressible, spontaneous, phasic, competent and demonstrates normal competent and demonstrates normal augmentation. augmentation. POP V is compressible, spontaneous, phasic, POP V is compressible, spontaneous, phasic, competent and demonstrates normal competent and demonstrates normal augmentation. augmentation. T/P Trunk is compressible. T/P Trunk is compressible. PTV is compressible. PTV is compressible. RT PerV is compressible. LT PerV is compressible. Procedure Exam performed in department. A preliminary report was called and/or faxed to Dr. Fitzpatrick. Interpretation Summary Deep veins of the lower extremities are bilaterally patent and compressible segmentally. There is no evidence of deep vein thrombosis on either side. Valvular competence appears intact within the proximal deep venous systems bilaterally. The greater saphenous veins appear bilaterally patent and compressible segmentally. Ordering Physician: Mackenzie Fitzpatrick Referring Physician: Mackenzie Fitzpatrick Performed By: Lela Stallings, THIAGO, RVT
== END ==
PROVIDERS: PCP Internal Medicine; Visit Provider Anesthesiology Pain Medicine
DX: M79.89 Other specified soft tissue disorders (principal); M79.605 Pain in left leg
CPT/HCPCS: 93970

== ENCOUNTER 2017-08-12 12:18 | Emergency (ER) | payer MEDICAID, SELFPAY ==
[2017-08-12] VITALS (8 sets, daily range): BP systolic 70–140; BP diastolic 46–87; PULSE 81–95; RESP 14–23; TEMP 36.8; O2SAT 94–98; BMI 33.5
[2017-08-12 12:36] LABS: Bedside Glucose 168 mg/dL (70-110)
[2017-08-12] MEDS: 0.9% Normal Saline 1,000 ML 999 ML IV (13:00)
--- NOTE | 2017-08-12 13:02 | EKG12_ITS ---
Test Reason : NEURO Blood Pressure : / mmHG Vent. Rate : 083 BPM Atrial Rate : 083 BPM P-R Int : 130 ms QRS Dur : 084 ms QT Int : 368 ms P-R-T Axes : 012 007 036 degrees QTc Int : 432 ms Normal sinus rhythm Low voltage QRS Borderline ECG Confirmed by LANA MICHAEL, NABOR ([id number]), supervising editor news reel SANCHO BAKER ([id number]) on 08/14/2017 1:31:10 PM Referred By: Ronal Nascimento Confirmed By:NABOR SCHWARTZ MD
--- NOTE | 2017-08-12 13:02 | CT_ITS ---
STUDY: CT BRAIN WITHOUT CONTRAST REASON FOR EXAM: Female, 57 years old. Dizziness. Numbness of the left lower extremity. RADIATION DOSAGE (If Supplied By Facility): CTDIvol = ( 44.99 ) mGy, DLP = ( 745.49 ) mGycm TECHNIQUE: Transaxial CT imaging of the brain was performed without administration of intravenous contrast material. Individualized dose optimization techniques were used for this CT. COMPARISON: Comparison is made with prior study dated November 15, 2016. FINDINGS: Normal soft tissue structures. Normal calvarium. Normal size ventricles and extra-axial spaces for the patient's age. Normal white matter tracts of the cerebral hemispheres. There are small punctate calcifications of the basal ganglia which are seen in the aging brain as a normal variant. Normal brainstem. Normal cerebellum. There is no intracranial hemorrhage. There are no findings of an acute ischemic infarction. Atherosclerotic calcification of the cavernous portions of the internal carotid arteries bilaterally. Normal visualized paranasal sinuses. CT/Brain/Head without Contrast IMPRESSION: No acute abnormality is seen. Electronically Signed: Bon Valentin MD at 14:14 EDT Tel [phone], Service support ,
[2017-08-12 13:24] LABS: Hematocrit 40.9 % (37-47); Hemoglobin 12.7 g/dl (12.0-15.0); Mean Corp Hgb Conc 31.1 g/gl (32-36); Mean Corpuscular Hgb 27.8 pg (27.0-32.0); Mean Corpuscular Volume 89.5 fL (81-99); Mean Platelet Vol. 10.7 fl (6.2-12.0); Platelet Count 303 K/mm3 (150-450); RBC Distribution Width CV 15.5 % (11.6-14.6); Red Blood Count 4.57 M/mm3 (4.2-5.4); Scan Indicated on CBC? Y/N NO
[2017-08-12 13:31] LABS: Prothrombin Time (Protime)PT. 13.2 SECONDS (11.7-14.9)
[2017-08-12 13:41] LABS: ALB/GLOB Ratio 0.8 RATIO (0.9-2.4); AST(SGOT) 13 U/L (15-37); Alanine Aminotransfer ALT/SGPT 15 U/L (13-56); Albumin, Serum 3.3 g/dL (3.2-5.0); Alkaline Phosphatase 122 U/L (45-117); Anion Gap 9 (5-15); BUN 26 mg/dL (7-18); BUN/Creat Ratio 14.9 RATIO (10-20); Calcium,Total 9.2 mg/dL (8.5-10.1); Chloride 103 mmol/L (98-107); Creatinine, Serum 1.75 mg/dL (0.55-1.02); EST Glomerular Filtration Rate 32 mL/min (>60); Est Glom Filt Rate - Afr Amer 39 mL/min (>60); Globulin 4.4 g/dL (2.2-4.2); Glucose 114 mg/dL (74-106); Lipase 135 U/L (73-393); Potassium 3.8 mmol/L (3.5-5.1); Protein, Total 7.7 g/dL (6.4-8.2); Sodium Level 140 mmol/L (136-145)
[2017-08-12 13:43] LABS: Alcohol, Blood (Medical)-Serum < 3.0 mg/dL
[2017-08-12] MEDS: 0.9% Normal Saline 1,000 ML 1000 ML IV (14:01)
[2017-08-12 14:11] LABS: Lactic Acid 1.8 mmol/L (0.4-2.0)
[2017-08-12 14:51] LABS: Bacteria 0 SEEN /hpf (None Seen); Mucous, Urine 0 SEEN /hpf (<or=2+); Red Blood Cells-Urine 0 SEEN /hpf (0-5); White Blood Cells 0 SEEN /hpf (0-5)
[2017-08-12 14:53] LABS: Color, Urine Yellow (Yellow); Glucose, Dipstick Normal (Normal); Ketone-Dipstick Negative (Negative); Leukocyte Esterase-Dipstick Negative /ul (Negative); Nitrite-Dipstick Negative (Negative); Occult Blood-Urine Negative /ul (Negative); Protein-Dipstick 15 mg/dl (Negative); Urine Bilirubin Dipstick Negative (Negative); Urine Clarity Clear (Clear); Urine Urobilinogen Normal (Normal); Urine pH 6.5 (5.0 - 8.0)
[2017-08-12 14:58] LABS: Squamous Epithelial Cells - UA 5-10 SEEN /hpf (5-10)
[2017-08-12 15:07] LABS: Amphetamine Urine VISTA NEGATIVE (<1000 ng/mL); Barbiturate Urine VISTA NEGATIVE (< 200 ng/mL); Benzodiazepine Urine VISTA NEGATIVE (< 200 ng/mL); Cocaine Urine VISTA NEGATIVE (< 300 ng/mL); Ecstacy Urine VISTA NEGATIVE (< 500 ng/mL); Methadone Urine VISTA NEGATIVE (< 300 ng/mL); PCP Urine VISTA NEGATIVE (< 25 ng/mL); THC Urine VISTA NEGATIVE (< 50 ng/mL); Vista UDS pH Range 6
--- NOTE | 2017-08-12 15:12 | CT_ITS ---
STUDY: CTA CHEST REASON FOR EXAM: Female, 57 years old. Elevated d-dimer. RADIATION DOSAGE (If Supplied By Facility): CTDIvol = ( 16.50 ) mGy, DLP = ( 696.00 ) mGycm TECHNIQUE: The examination was performed with the intravenous administration of 100 ml of Isovue 370 contrast material. Post-processing of the angiographic images was performed, with multiplanar reformation and 3D reconstruction. Individualized dose optimization techniques were used for this CT. COMPARISON: CTA of the chest, November 16, 2016. FINDINGS: Normal enhancement of the main pulmonary artery and right and left pulmonary arteries. Normal enhancement of the bilateral peripheral pulmonary arteries. There is no demonstrated pulmonary embolism. There is atherosclerotic tortuosity of the thoracic aorta without aneurysm. There is no demonstrated aortic dissection. Normal heart and pericardium. 7 Normal mediastinum. Normal hilar regions. Normal visualized trachea and bronchi. The lungs are well expanded. There are minimal air trapping and emphysematous changes along the apices. Atelectatic changes at the lung bases. There is no focal mass or infiltrate. Normal pleura. Normal chest wall structures. There are degenerative changes of thoracic spine. There is marked distention of the stomach without other renal abnormality. CT/CTA Chest W/WO Contrast IMPRESSION: 1. No evidence of pulmonary embolus. 2. No aortic dissection or aneurysm. 3. Mild emphysematous changes in lungs stable when compared to prior study. 4. Mild bibasilar atelectasis. 5. Distended fluid-filled stomach. As appears similar to the previous study. Electronically Signed: Robin Carlson DO at 16:57 EDT Tel [phone], Service support ,
[2017-08-12] MEDS: fentaNYL 100 MCG/2 ML Ampul 25 MCG IV ×2 (15:36→16:54)
--- NOTE | 2017-08-12 16:39 | ED.DCSUM_ITS ---
- ER Visit Summary Date of Service: 08/12/17 Chief Complaint: [Near syncope] History of Present Illness: The patient is a 57 F [resents the emergency department with near syncope. It lasted approximately 5-10 minutes today. She states that she has had 2 episodes in the last week where she got tunnel vision dizziness numbness and did not feel right and lasted about 5-10 minutes and then resolved this happened a week ago and then again today. She has chronic right hip pain. She is on multiple medications for that. She had an ultrasound of her left lower extremity because of swelling a week ago which was normal. Patient's blood pressure normally does run low she is on multiple medications due to her coronary artery disease. She has not had any fevers chills dysuria abdominal pain nausea vomiting diarrhea or other symptoms.] Physical Examination: [] Pressure 66 systolic WN WD NAD PERRL EOMI MMM NECK supple and nontender, no masses RRR no murmur rub or gallop, mild edema of the left lower extremity, symmetric radial pulses symmetric DP pulses CTAB no respiratory distress ABDOMEN is soft and nontender, normal bowel sounds, no distension, no rebound or guarding SKIN is warm and dry no rashes Tenderness to palpation the right groin Alert and Oriented x3, CN II-XII in tact, no motor or sensory deficits, gait normal No lymphadenopathy Test Results: [] Emergency Department Course and Treatment: [Patient was given 2 L of fluid. Her blood pressure did improve. Screening labs were unremarkable except for mild increase in her kidney function from 1.3-1.75. Tox is positive for opiates only. Patient's d-dimer was elevated so CTA was obtained. I think the patient is likely got low blood pressure secondary to medications. I spoke with Dr. Crenshaw and provided that she has no evidence of PE we will cut her lisinopril to 5 mg and she will follow-up in the office in 1 week for blood pressure check. She understands reasons for which to return. Dr. Stanley follow -up on her CTA and if it is unremarkable she will be discharged home. Any abnormalities will be due addressed accordingly.] Treatment Plan: [] Disposition: [] Impression: [Hypotension] This note was generated with [employer] software. It may contain incorrect words, spelling, and punctuation that were not noted in review of the chart prior to signing ED Disposition - Plan for ED Patient: Chief Complaint: Neuro S/Sx Referrals: Fredy Rodriguez MD [Primary Care Provider] -
--- NOTE | 2017-08-12 16:39 | ED.DEP ---
ED Disposition - Plan for ED Patient: Chief Complaint: Neuro S/Sx Instructions: ED Hypotension All Causes Prescriptions: Lisinopril [Zestril] 5 mg PO DAILY #30 tablet Referrals: Ulises Varela MD [STAFF PHYSICIAN] - 1 Week Additional Instructions: stop lisinopril 20mg start lisinopril 5mg daily
== END 2017-08-12 17:30 | disposition home or self-care (01) ==
LOC: ED 13:10
PROVIDERS: Emergency Medicine; Emergency Provider Emergency Medicine; PCP Internal Medicine
DX: I95.9 Hypotension, unspecified (principal); M25.551 Pain in right hip; M54.5 Low back pain; G89.29 Other chronic pain; I25.10 Atherosclerotic heart disease of native coronary artery without angina pectoris; I25.2 Old myocardial infarction; I10 Essential (primary) hypertension; E78.00 Pure hypercholesterolemia, unspecified; Z79.82 Long term (current) use of aspirin; Z79.02 Long term (current) use of antithrombotics/antiplatelets; Z79.891 Long term (current) use of opiate analgesic; Z79.899 Other long term (current) drug therapy
CPT/HCPCS: 70450; 71275; 80053; 80307; 80320; 81001; 82962; 83605; 83690; 84484; 85027; 85379; 85610; 87040; 87086; 87088; 93005; 96361; 96374; 96376; 97113; 99285; J7030; Q9967; A4216; G0480

== ENCOUNTER 2017-09-03 11:00 | Outpatient (RCR) | payer MEDICAID, SELFPAY ==
--- NOTE | 2017-08-05 09:57 | HP.PTEVAL ---
Patient's Visit Information JOHANA YBARRA is a 57 year old F referred to Physical Therapy by Ronal Nascimento DO with a diagnosis of R LBP and hip pain. Date of Evaluation: 08/05/17 Physical Therapist: Viraj Ornelas DPT, OC - Visit Plan Frequency: 2-3x /Week Duration: 4-6 Weeks Plan: 2-3x/week for pool based R hip and LB ROM, gait and R hip stretching and general strength focussing R hip and core as pain allows. May bridge gap to busy pool schedule with land PT for R hip PROm and mobs and ES with ice. rollout to leg muscles. - Subjective Subjective: R hip pain and knee pain. Has hurt since December for no apparent reason. See Basali for pain management in back and has done nerve blocks on back. Was sent to Dr Brown at that time and then R hip started to hurt. May have started after visiting mom in hospital. was pretty active prior to that. She has been less active [facility] In October. Dr BROWN could not evaluate back due to hip pain. Was sent to Dr. Armenta by Dr Brown for hip pain and had x ray and said it was OK. Was sent for PT but could not make it. Also was in [facility] as she had two stents placed at that time last year. Dr. Armenta thought hip pain may come from back as it is lateral. Then got MRI of back in April and symptoms in leg did nto match up with back. Ordered nerve conduction study which she should have had two weeks ago but could not go due to increasing hip pain. Went to ER and did scan of hip and has avascualr necrosis. Wanted to do immediate ENRIQUE but on plavix due to stents last year and can not get off plavix for a year due to stents. Needs to wait for ENRIQUE until November. Has HNP in LB and H/O laminectomy and spodylosis and will need to have it cleaned out on R side. LBP starts in R LB and also hurts in R lateral hip and down quad to knee. Needs wh walker to ambulate as legs gave out. Walked without AD end of last December. Sleep is OK with pain meds which will change soon. Is getting 3-4 hours at a time but wakes up to take pain meds. Spends day lying on couch. Increased activity makes her worse. Dresses self, lives with aunt who cooks and cleans. Has walk in shower that she uses I in shower chair. Not employed. If she was healthy she would like to [place], fish and watch baseball games. Both feet and hands swelled up a week ago, much better now except L ankle which has a history of hardware needing to be placed. Dr. Varela did not think it was cardiac in nature. - Pain R LB Pain Intensity (Out of 10): 8 Pain Intensity Range: 4, 8 R lateral leg Pain Intensity (Out of 10): 10 Pain Intensity Range: 10 Comment: been that like that since december - Objective Walks very laborious and painful with wh walker back to 150 feet eval room, slow, very painful, hunched over and R antalgia. unable to functionally walk without AD. Trasnfers slow but I to and fro sit and supine, painful transfers. Keeps weight off of R hip when sitting and standing. can stand withotu AD btu avoids R WB. reflexes 2/3 in patella and achilels. Sensation diminished in R foot(old injury) to gross light touch. Strenght L LE 4/5 hip knee and ankle with good ROM. R ankle is full ROM but hurts in R hip to MMT. Knee strength 3+/5 R limited due to pain. R hip ROM painful to move at all and crying so MMT not performed with any accuracy. LB ROM Very little movement in sagittal plane, frontal plane slightly better L than R. PROm not tolerated on R bhip. - Goals Goal 1:: Pain down to 2/10 at worst adn intermittent reporting 75% improvement in condition. Goal Time Frame: 4-6 Weeks Goal 2:: Walk without increased pain 250 feet with LRAD Goal Time Frame: 4-6 Weeks Goal 3:: I approp HEP to minimize future problems and get patient max function to her ENRIQUE. 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 Rehabilitation Potential: Fair - Anticipated Interventions Patient/Client Instruction: Educate patient on: Condition, Plan of Care For the Purpose of:: To decrease pain, To improve ability of physical actions for home/community/work/leisure, To improve gait and locomotor functions Therapeutic Exercise to Include: Strength training, Flexibilty training, Gait and locomotor training, In an aquatic setting, Passive ROM, Active ROM For the Purpose of:: To decrease pain, To increase ROM, To improve nutrient delivery to tissue, To improve ability of physical actions for home/community/work/leisure, To improve gait and locomotor functions, To improve health of tissue Manual Therapy Techniques to Include: Soft tissue mobilization For the Purpose of:: To decrease pain, To improve nutrient delivery to tissue TENS: Yes Cryotherapy (ice pack, ice massage): Yes For the Purpose of:: To decrease pain Thank you for the opportunity to evaluate your patient. For Medicare and Medicare HMO plans, please review the plan of care and approve it. It will need to be FAXED BACK to us at [phone] for Medicare purposes. Please let me know if there are questions or concerns regarding this plan of care. Physician Signature: Date:
--- NOTE | 2017-09-03 11:00 | DT_ITS ---
This patient was seen during an EMR downtime August 31, 2017 - September 07, 2017. This patient may have a combination of paper and electronic documentation or all paper documentation. All documentation is viewable within the e-chart portion of [employer] for each patient visit.
--- NOTE | 2017-09-10 15:10 | HP.PTREVAL_ITS ---
Ronal Nascimento, DO, It has been my pleasure to treat JOHANA YBARRA over the last 8 visits for R LBP and hip pain. Please see the progress note below for an update on the physical therapy plan of care! Subjective: Has helped a little. Walking better. Still painful lat right hip to knee, Had knee injection this morning. 9/10 hip pain all the time. Lying it might be 7/10. Overall 20% better. Using wh walker all the time, Will have ENRIQUE in November after off plavix long enough. No pain in water. Better after water ex for a full day. Can't join pool due to finances. Body did not tolerate WB ex in past. Objective/Function: ROM R hip painful but WFL. strength at 4-/5 but hurts to contract all hip mm. Needs wh walker to ambulate. Cannot WB L without AD. Pt needs ENRIQUE but cannot until November due to plavix from heart. In a tough situation and appropriate to continue to progress water ex. Plan Plan: 2x/week x 4 weeks for continued aquatic progression to same goals(not available today due to EMR downtime) and increase WB tlerance L LE. Try to teach some home clamshells/hip strength if possible. Goals Goal 1:: Pain down to 2/10 at worst adn intermittent reporting 75% improvement in condition. Goal Time Frame: 4-6 Weeks Goal 2:: Walk without increased pain 250 feet with LRAD Goal Time Frame: 4-6 Weeks Goal 3:: I approp HEP to minimize future problems and get patient max function to her ENRIQUE. Goal Time Frame: 4-6 Weeks Anticipated Interventions Patient/Client Instruction: Educate patient on: Condition, Plan of Care For the Purpose of:: To decrease pain, To improve ability of physical actions for home/community/work/leisure, To improve gait and locomotor functions Therapeutic Exercise to Include: Strength training, Flexibilty training, Gait and locomotor training, In an aquatic setting, Passive ROM, Active ROM For the Purpose of:: To decrease pain, To increase ROM, To improve nutrient delivery to tissue, To improve ability of physical actions for home/community/ work/leisure, To improve gait and locomotor functions, To improve health of tissue Manual Therapy Techniques to Include: Soft tissue mobilization For the Purpose of:: To decrease pain, To improve nutrient delivery to tissue TENS: Yes Cryotherapy (ice pack, ice massage): Yes For the Purpose of:: To decrease pain Please do not hesitate to contact me at [phone] by phone or Fax: if you have questions or concerns regarding this new plan of care! Sincerely, Viraj Ornelas, DPT, OC
--- NOTE | 2017-11-05 12:06 | HP.PTDCNRP_ITS ---
HP - Discharge Summary (1) - Patient Information JOHANA YBARRA was seen in my office for initial evaluation on 08/05/17. The following Plan of Care was established for this patient: Initial Frequency: 2-3x /Week Initial Duration: 4-6 Weeks - Anticipated Interventions Patient/Client Instruction: Educate patient on: Condition, Plan of Care For the Purpose of:: To decrease pain, To improve ability of physical actions for home/community/work/leisure, To improve gait and locomotor functions Therapeutic Exercise to Include: Strength training, Flexibilty training, Gait and locomotor training, In an aquatic setting, Passive ROM, Active ROM For the Purpose of:: To decrease pain, To increase ROM, To improve nutrient delivery to tissue, To improve ability of physical actions for home/community/ work/leisure, To improve gait and locomotor functions, To improve health of tissue Manual Therapy Techniques to Include: Soft tissue mobilization For the Purpose of:: To decrease pain, To improve nutrient delivery to tissue TENS: Yes Cryotherapy (ice pack, ice massage): Yes For the Purpose of:: To decrease pain This patient was last seen in our office 09/03/17. Pertinent comments regarding their Physical therapy will appear below: Pt seen 8 visits and rechecked on 09/03. New POC was formed for water exercise however pt has neglected to schedule these visits over the last two months and will be discontinued at this time. At this point I will be discontinuing this patient from physical therapy. I would be happy to see this patient again in the future if found appropriate by the physician. Thank you! Viraj Ornelas, DPT, OC
== END 2017-09-03 19:00 | disposition home or self-care (01) ==
LOC: PT 11:00
PROVIDERS: PCP Internal Medicine; Visit Provider Orthopaedic Surgery
DX: M25.551 Pain in right hip (principal); M54.5 Low back pain
CPT/HCPCS: 97113; 97162; 97530

== ENCOUNTER 2017-10-09 23:58 | Emergency (ER) | payer MEDICAID, SELFPAY ==
[2017-10-09 23:59] VITALS: BP 139/88; PULSE 80; RESP 16; TEMP 36.7; O2SAT 95; BMI 31.6
[2017-10-10] MEDS: morphine 10 MG/ML Syringe IM (00:48)
--- NOTE | 2017-10-10 01:00 | RAD_ITS ---
STUDY: X-RAY - PELVIS AND RIGHT HIP REASON FOR EXAM: Female, 57 years old. Chronic pain TECHNIQUE: Three views of the pelvis and hip were obtained. COMPARISON: July 25, 2017 FINDINGS: The bowel gas pattern is unremarkable. There are diffuse vascular calcifications. There are moderate degenerative changes in the lower lumbar spine. The visualized iliac wings, sacroiliac joints and sacrum are unremarkable. No abnormalities are seen in the visualized superior and inferior pubic rami. Normal appearing pubic symphysis. The visualized ischial tuberosities are unremarkable. There is marked flattening of the right femoral head. There is mixed lucency and sclerosis in the acetabulum. There is severe narrowing of the right hip joint superiorly. RAD/Hip 2-3 Views with Pelvis IMPRESSION: Marked degenerative changes are again seen in the right hip with severe flattening of the right femoral head. Electronically Signed: Latisha Adair MD at 1:39 EDT Tel Direct: [phone], Service support ,
--- NOTE | 2017-10-10 01:45 | ED.VISSUMM ---
- ER Visit Summary Date of Service: 10/10/17 Chief Complaint: Right hip pain History of Present Illness: The patient is a 57 F who presents with right hip pain. She has a history of avascular necrosis of the right hip and will require a hip replacement. However she had a myocardial infarction last year. Her photographic reproduction technician wanted her to be on Plavix for a year before coming off of it for surgery so she has not yet been a surgical candidate although is hoping that this will be done within the next few months. She complains of chronic gradually worsening severe right hip pain over the past several months. No acute injury or sudden change or worsening. No fall. She does complain of some burning pain radiating down her right leg as well. She denies paresthesias or weakness. She is able to ambulate although it is painful. She has a rolling walker at home as well. She is in pain management and uses long-acting morphine and immediate release oxycodone for pain control but states this has not been managing her lately. Physical Examination: Afebrile, vitals stable Patient does appear uncomfortable Heart regular rate and rhythm Lungs clear She has limited painful range of motion of the right hip Normal sensation distally with brisk capillary refill and easily palpable dorsalis pedis pulse Test Results: Right hip x-ray shows marked degenerative changes and severe flattening of the right femoral head similar to prior. Emergency Department Course and Treatment: Patient was given intramuscular morphine for acute pain control with significant relief of symptoms. She has an appointment with her pain management physician on Thursday. She was advised to continue her current pain medication regimen and supportive care. She understands to return for new or worsening symptoms. She is comfortable with the plan to be discharged. Treatment Plan: [] Disposition: Discharge Impression: Chronic right hip pain Avascular necrosis of right hip This note was generated with [employer] dictation software. It may contain incorrect words, spelling, and punctuation that were not noted in review of the chart prior to signing ED Disposition - Plan for ED Patient: Chief Complaint: Lower Extremity Injury Referrals: Fredy Rodriguez MD [Primary Care Provider] -
[2017-10-10 01:48] VITALS: BP 153/100; PULSE 79; RESP 17; O2SAT 97
--- NOTE | 2017-10-10 01:48 | ED.DCSUM_ITS ---
- ER Visit Summary Date of Service: 10/10/17 Chief Complaint: Right hip pain History of Present Illness: The patient is a 57 F who presents with right hip pain. She has a history of avascular necrosis of the right hip and will require a hip replacement. However she had a myocardial infarction last year. 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 She complains of chronic gradually worsening severe right hip pain over the past several months. No acute injury or sudden change or worsening. No fall. She does complain of some burning pain radiating down her right leg as well. She denies paresthesias or weakness. She is able to ambulate although it is painful. She has a rolling walker at home as well. She is in pain management and uses long- acting morphine and immediate release oxycodone for pain control but states this has not been managing her lately. Physical Examination: Afebrile, vitals stable Patient does appear uncomfortable Heart regular rate and rhythm Lungs clear She has limited painful range of motion of the right hip Normal sensation distally with brisk capillary refill and easily palpable dorsalis pedis pulse Test Results: Right hip x-ray shows marked degenerative changes and severe flattening of the right femoral head similar to prior. Emergency Department Course and Treatment: Patient was given intramuscular morphine for acute pain control with significant relief of symptoms. She has an appointment with her pain management physician on Thursday. She was advised to continue her current pain medication regimen and supportive care. She understands to return for new or worsening symptoms. She is comfortable with the plan to be discharged. Treatment Plan: [] Disposition: Discharge Impression: Chronic right hip pain Avascular necrosis of right hip This note was generated with [employer] dictation software. It may contain incorrect words, spelling, and punctuation that were not noted in review of the chart prior to signing ED Disposition - Plan for ED Patient: Chief Complaint: Lower Extremity Injury Referrals: Fredy Rodriguez MD [Primary Care Provider] -
--- NOTE | 2017-10-10 01:48 | ED.DEP ---
ED Disposition - Plan for ED Patient: Chief Complaint: Lower Extremity Injury Instructions: ED Necrosis Avascular Femoral Head Referrals: Fredy Rodriguez MD [Primary Care Provider] - Mackenzie Fitzpatrick MD [STAFF PHYSICIAN] -
== END 2017-10-10 01:57 | disposition home or self-care (01) ==
LOC: ED 10-10 00:45
PROVIDERS: Emergency Provider Emergency Medicine; PCP Internal Medicine
DX: M25.551 Pain in right hip (principal); G89.29 Other chronic pain; M87.9 Osteonecrosis, unspecified; I25.2 Old myocardial infarction; I25.10 Atherosclerotic heart disease of native coronary artery without angina pectoris; I10 Essential (primary) hypertension; E78.00 Pure hypercholesterolemia, unspecified; Z72.0 Tobacco use; Z79.82 Long term (current) use of aspirin; Z79.02 Long term (current) use of antithrombotics/antiplatelets; Z79.891 Long term (current) use of opiate analgesic; Z79.899 Other long term (current) drug therapy
CPT/HCPCS: 73502; 96372; 99282

== ENCOUNTER → 2017-10-12 16:51 | Outpatient (CLI) | payer MEDICAID, SELFPAY ==
[2017-10-12 18:02] LABS: Alcohol, Blood (Medical)-Serum < 3.0 mg/dL
[2017-10-12 18:28] LABS: Amphetamine Urine VISTA NEGATIVE (<1000 ng/mL); Barbiturate Urine VISTA NEGATIVE (< 200 ng/mL); Benzodiazepine Urine VISTA NEGATIVE (< 200 ng/mL); Cocaine Urine VISTA NEGATIVE (< 300 ng/mL); Ecstacy Urine VISTA POSITIVE (< 500 ng/mL); Methadone Urine VISTA NEGATIVE (< 300 ng/mL); PCP Urine VISTA NEGATIVE (< 25 ng/mL); THC Urine VISTA NEGATIVE (< 50 ng/mL); Vista UDS pH Range 5
== END ==
PROVIDERS: PCP Internal Medicine; Visit Provider Anesthesiology Pain Medicine
DX: F11.20 Opioid dependence, uncomplicated (principal)
CPT/HCPCS: 36415; 80307; 80320; G0480

== ENCOUNTER 2017-10-29 12:45 | Observation (INO) | payer MEDICAID, SELFPAY ==
[2017-10-29] VITALS (11 sets, daily range): BP systolic 62–144; BP diastolic 26–84; PULSE 73–122; RESP 14–24; TEMP 36.1–36.4; O2SAT 91–97; BMI 35.4; BMI 33.1
--- NOTE | 2017-10-29 13:09 | EKG12_ITS ---
Test Reason : HYPOTENSION Blood Pressure : / mmHG Vent. Rate : 081 BPM Atrial Rate : 081 BPM P-R Int : 126 ms QRS Dur : 088 ms QT Int : 392 ms P-R-T Axes : 048 025 040 degrees QTc Int : 455 ms Normal sinus rhythm Normal ECG Confirmed by AMY MICHAEL, LEE ([id number]), website/blog editor SANCHO BAKER ([id number]) on 11/02/2017 2:01:50 PM Referred By: ISIDRO Confirmed By:LEE REYES MD
--- NOTE | 2017-10-29 13:09 | RAD_ITS ---
STUDY: X-RAY CHEST REASON FOR EXAM: Female, 57 years old. Lethargy. Hypotension. TECHNIQUE: Single AP portable view of the chest. COMPARISON: Comparison is made with prior study dated November 15, 2016. FINDINGS: EKG electrodes are seen. Hyperinflation. The lungs are clear. There is no demonstrated pleural abnormality. Normal size heart. Normal mediastinum and joe. Normal visualized pulmonary arteries. There is atherosclerotic tortuosity of the aortic arch and descending thoracic aorta. Normal visualized thoracic spine. Normal visualized ribs, clavicles, and shoulders. There is no demonstrated abnormality of the visualized soft tissue structures of the upper abdomen. RAD/Chest 1 View (Portable) IMPRESSION: Hyperinflation. The lungs are clear. Electronically Signed: Bon Valentin MD at 13:54 EDT Tel [phone], Service support ,
[2017-10-29] MEDS: 0.9% Normal Saline 1,000 ML 1000 ML IV (13:30)
[2017-10-29 13:36] LABS: Absolute Lymphocyte Count 2.31 X10^3/ul (0.83-4.51); Absolute Neutrophil Count 8.5 X10^3/uL (2.0-7.7); Basophil# 0.02 X10^3/uL; Basophil% 0.2 % (0-1); Eosinophil# 0.09 X10^3/uL; Eosinophils% 0.8 % (0-5); Hematocrit 40.9 % (37-47); Lymphocyte # 2.31 X10^3/ul (4.0); Lymphocyte % 19.7 % (19-41); Mean Corp Hgb Conc 31.8 g/gl (32-36); Mean Corpuscular Hgb 27.4 pg (27.0-32.0); Mean Corpuscular Volume 86.3 fL (81-99); Mean Platelet Vol. 9.9 fl (6.2-12.0); Monocyte# 0.81 X10^3/uL; Monocyte% 6.9 % (0-10); Neutrophil # 8.47 X10^3/uL (2.7-7.7); Neutrophil % 72.2 % (47-70); POSITIVE COUNT NO; POSITIVE DIFFERENTIAL NO; POSITIVE MORPHOLOGY NO; Platelet Count 222 K/mm3 (150-450); RBC Distribution Width CV 16.3 % (11.6-14.6); RBC Distribution Width SD 51.8 fl (35.1-43.9); Red Blood Count 4.74 M/mm3 (4.2-5.4); White Blood Count 11.7 K/mm3 (4.4-11.0)
[2017-10-29 13:50] LABS: Anion Gap 12 (5-15); BUN 37 mg/dL (7-18); BUN/Creat Ratio 16.2 RATIO (10-20); Calcium,Total 8.9 mg/dL (8.5-10.1); Chloride 100 mmol/L (98-107); Creatinine, Serum 2.29 mg/dL (0.55-1.02); EST Glomerular Filtration Rate 23 mL/min (>60); Est Glom Filt Rate - Afr Amer 28 mL/min (>60); Estimated Creatinine Clearance 22.69 ml/min; Glucose 102 mg/dL (74-106); Potassium 4.1 mmol/L (3.5-5.1); Sodium Level 138 mmol/L (136-145)
[2017-10-29 14:04] LABS: Lactic Acid 2.3 mmol/L (0.4-2.0)
--- NOTE | 2017-10-29 14:05 | ED.RN ---
lactic acid 2.[address] orr aware
[2017-10-29 15:06] LABS: Acetaminophen (Tylenol) Level 6.4 ug/mL (10.0-30.0); Salicylate 5.8 mg/dL (2.8-20.0)
--- NOTE | 2017-10-29 15:13 | CM.ED ---
Attempted to perform case management initial assessment. Patient is being seen by another member of care team at this time. Will reattempt as able.
--- NOTE | 2017-10-29 15:30 | ED.DCSUM_ITS ---
- ER Visit Summary Date of Service: 10/29/17 Chief Complaint: [Hypotension] History of Present Illness: The patient is a 57 F [presents to the emergency department complaint hypotension today. Patient was being seen Dr. Fitzpatrick's office when patient was noted to have pinpoint pupils, lethargy, and hypotension. Patient is on chronic narcotic pain medication for history of chronic back and right hip pain. Patient has diagnosis of right hip avascular necrosis however before being able to have surgery on her hip patient had a heart attack and could not get cleared for surgery until she has been on Plavix for a year. Patient denies taking any extra medications although normally she takes morphine 15 mg extended release as well as oxycodone. Patient also takes Zanaflex and gabapentin. Patient also takes trazodone.] Patient only complaining of her chronic right hip pain and chronic back pain. She denies recent illness. She denies any chest pain or shortness of breath. Patient states that her blood pressure normally runs between 80 and 100. Physical Examination: [HEENT-PERRLA, pupils are 2 mm and reactive bilaterally. EOMI. Cranial nerves II through XII grossly intact. TMs clear. Mucous membranes dry. No adenopathy. Cardiovascular-regular rate and rhythm without murmur or ectopy Lungs-clear to auscultation, chest wall stable without crepitus or subcu emphysema Abdomen-normoactive bowel sounds, soft, nontender, no rebound or rigidity, no peritoneal signs. Extremities-intact ?4, normal range of motion, normal pulses, atraumatic] Test Results: [EKG obtained arrival shows sinus rhythm with a ventricular rate of 81 bpm]. CBC with differential obtained shows a white blood cell count 11.7 , hemoglobin 13, hematocrit 41, platelets 272. Chemistries unremarkable. BUN was 37 and creatinine 2.29. Troponin was less than 0.015. Alcohol was 5.0. Toxicology screen ordered and pending urinalysis ordered and pending salicylate and Tylenol level ordered and pending Emergency Department Course and Treatment: [Patient received 2 L normal same fluid bolus in the emergency department and continues to have systolics anywhere from 80-100. Patient was asking for pain medication for her chronic pain however I explained to her that I was concerned that this may lower her blood pressure further and recommended against it at this time. I offered patient Tylenol or Toradol which she refused.] Treatment Plan: [Admit] Disposition: [Admit for fluid hydration.] I suspect some of her hypotension may be due to medication reaction to narcotics and the other multiple medications that the patient takes. Impression: [Hypotension Dehydration ] This note was generated with [employer] dictation software. It may contain incorrect words, spelling, and punctuation that were not noted in review of the chart prior to signing ED Disposition - Plan for ED Patient: Chief Complaint: Hypotension Referrals: Fredy Rodriguez MD [Primary Care Provider] -
[2017-10-29] MEDS: 0.9% Normal Saline 1,000 ML 999 ML IV ×2 (15:34→15:36)
[2017-10-29 15:40] LABS: Bacteria 0 SEEN /hpf (None Seen); Mucous, Urine 0 SEEN /hpf (<or=2+); Red Blood Cells-Urine 0 SEEN /hpf (0-5); Squamous Epithelial Cells - UA 0 SEEN /hpf (5-10); White Blood Cells 0 SEEN /hpf (0-5)
[2017-10-29 15:46] LABS: Color, Urine Yellow (Yellow); Glucose, Dipstick Normal (Normal); Ketone-Dipstick Negative (Negative); Leukocyte Esterase-Dipstick Negative /ul (Negative); Nitrite-Dipstick Negative (Negative); Occult Blood-Urine 10 /ul (Negative); Protein-Dipstick 15 mg/dl (Negative); Specific Gravity, Urine 1.015 (1.002-1.030); Urine Bilirubin Dipstick Negative (Negative); Urine Clarity Sl. Cloudy (Clear); Urine Urobilinogen Normal (Normal)
[2017-10-29 16:05] LABS: Amorphous Sediment 1+
[2017-10-29 16:16] LABS: Amphetamine Urine VISTA NEGATIVE (<1000 ng/mL); Barbiturate Urine VISTA NEGATIVE (< 200 ng/mL); Benzodiazepine Urine VISTA NEGATIVE (< 200 ng/mL); Cocaine Urine VISTA NEGATIVE (< 300 ng/mL); Ecstacy Urine VISTA POSITIVE (< 500 ng/mL); Methadone Urine VISTA NEGATIVE (< 300 ng/mL); PCP Urine VISTA NEGATIVE (< 25 ng/mL); THC Urine VISTA NEGATIVE (< 50 ng/mL); Vista UDS pH Range 5
[2017-10-29] MEDS: 0.9% Normal Saline 1,000 ML 150 ML IV (17:19)
[2017-10-29] MEDS: fentaNYL 25 MCG Patch TRANSDERM. (17:19)
[2017-10-29] MEDS: Gabapentin 400 MG Capsule PO ×2 (17:19→22:24)
[2017-10-29 17:29] LABS: Reflex Lactate? Y
[2017-10-29] MEDS: oxyCODONE 5 MG Tablet PO (18:02)
[2017-10-29 18:23] LABS: Lactic Acid 0.6 mmol/L (0.4-2.0)
--- NOTE | 2017-10-29 19:58 | PCM.HP.STD ---
Problem List (1) Hypotension Status: Acute Qualifiers: Hypotension type: unspecified hypotension type Qualified Code(s): I95.9 - Hypotension, unspecified (2) Lethargy Status: Acute History of Present Illness Date of Admission: 10/29/17 Chief Complaint: Hypotension, lethargy The patient is a 57 year old F who was sent to the emergency room at [facility] after being seen in her pain management physician's office and noted to have a low blood pressure, lethargy, and speech difficulties. Patient is on multiple medications for pain management, she has avascular necrosis of her right hip as well as chronic back pain and chronic left leg pain due to past history of trauma. Evaluation in the emergency room revealed her blood pressure to be low at 69/42, patient was lethargic but answers questions appropriately and follows commands appropriately. CBC was remarkable for white blood cell count of 11.7, chemistries were unremarkable except for a BUN of 37 and creatinine of 2.29. Patient was placed and observation status for adverse medication reaction due to narcotics, muscle relaxants, and gabapentin as well as hypotension. Patient was given fluids in the emergency room with elevation of her blood pressure into the 90s systolic. Patient's pulse ox on room air was 97%. I talked pain management about her care, I will decrease her gabapentin and Zanaflex, I will also change her over to a fentanyl patch from her MS ER 15 mg medication, I will hold her oxycodone for now until she is more alert. Past Medical History Past Medical History (Chronic Problems): Chronic Problems (Last Reviewed 09/17/17 @ 15:45 by Ulises Varela MD) Atherosclerosis of [place] coronary artery of [place] heart without angina pectoris (Chronic) Tobacco abuse (Chronic) H/O laminectomy (Chronic) Hypertension (Chronic) Hyperlipidemia (Chronic) Low back pain (Chronic) Medical History: Medical History (Last Reviewed 09/17/17 @ 15:45 by Ulises Varela MD) Atherosclerosis of [place] coronary artery of [place] heart without angina pectoris (Chronic) I25.10 Tobacco abuse (Chronic) Z72.0 Syncope and collapse (Resolved) R55 LOVE (acute kidney injury) (Acute) N17.9 Hypertension (Chronic) I10 Hyperlipidemia (Chronic) E78.5 Low back pain (Chronic) M54.5 Allergies adhesive Adverse Reaction (Verified 10/29/17 12:49) Other baclofen Adverse Reaction (Verified 10/29/17 12:49) LETHARGY Home Medications: Ambulatory Orders Medication Instructions Recorded traZODone [Desyrel] 200 mg PO QHS 09/16/16 Tizanidine HCl [Zanaflex] 4 mg PO TID 11/25/16 DiphenhydrAMINE [Benadryl] 50 mg PO QHS 01/15/17 gabapentin 400 mg capsule 800 mg PO 4X/DAY 03/18/17 rosuvastatin 40 mg tablet 40 mg PO DAILY 30 Days #30 tab 05/25/17 clopidogrel 75 mg tablet 75 mg PO DAILY 30 Days #90 tab 09/17/17 furosemide 20 mg tablet 20 mg PO DAILY #90 tab 09/17/17 lisinopril 20 mg tablet 20 mg PO DAILY #90 tab 09/17/17 morphine ER 15 mg tablet,extended 15 mg PO Q12H 09/17/17 release Acetaminophen [Tylenol Extra 500 mg PO Q4H PRN PRN 10/29/17 Strength] Aspirin E.C. [Ecotrin] 81 mg PO DAILY@0800 10/29/17 Ibuprofen 800 mg PO TID 10/29/17 Metoprolol Tartrate [Lopressor 25 mg PO BID 10/29/17 (beta kusum)] Oxycodone [Oxyir] 5 mg PO BID 10/29/17 Senna/Docusate Sodium [Senokot-S] 2 tablet PO DAILY PRN 10/29/17 Surgical History: Surgical History (Last Reviewed 09/17/17 @ 15:45 by Ulises Varela MD) H/O laminectomy (Chronic) Z98.890 History of left heart catheterization Z98.890 11/17/2016 PRABHAKAR mid RCA and prox LAD Hx of bone graft Onset Date: ~2014 Z98.890 S/P ORIF (open reduction internal fixation) fracture Z96.7, Z87.81 tib/fib Surgical History: herniorrhaphy, hysterectomy, - - laminectomy, left tib-fib fracture with open reduction secondary to trauma, coronary artery stents ?2, left breast biopsy Psychiatric History: No pertinent psych hx 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 Lives: With Family Smoking Status: Current every day smoker Tobacco Use: Cigarettes Alcohol: Occasional Drugs: None - *Family History Maternal Family History: Family History (Last Reviewed 09/17/17 @ 15:45 by Ulises Varela MD) Father Hypertension Mother Hypertension History Items: Diabetes Paternal Family History: Family History (Last Reviewed 09/17/17 @ 15:45 by Ulises Varela MD) Father Hypertension Mother Hypertension History Items: Hypertension Review of Systems Constitutional: Denies: Anorexia, Chills, Fever, Night Sweats, Malaise, Weakness, Weight Change, Fatigue Eyes: Denies: Blurred vision, Cataracts, Conjunctivae Inflammation, Double vision, Drainage HEENT: Denies: Difficulty Swallowing, Dysphasia, Ear Pain, Eye Pain, Hearing Changes, Nasal bleeding, Nasal Congestion, Post Nasal Drip Cardiovascular: Denies: Chest Pain, Claudication, Chest Pressure, Chest Tightness, Edema, Heaviness, Orthopnea, Palpitations Respiratory: Denies: Cough, Hemoptysis, Pleuritic Pain, Shortness of Breath, Shortness of breath at rest, Shortness of breath upon exertion, Sputum production Gastrointestinal: Denies: Abdominal Pain, Constipation, Diarrhea, Hematemesis, Hematochezia, Nausea, Melena, Vomiting Genitourinary: Denies: Dysuria, Frequency, Hematuria, Hesitancy, Urgency Gynecological: Denies: Breast symptoms Musculoskeletal: Reports: Back Pain, Joint Pain - Right hip joint, Leg Pain. Denies: Joint stiffness, Joint swelling Skin: Denies: Dryness, Pruritis, Rash Neurological: Denies: Blurred vision, Double vision, Slurred speech, Difficulty swallowing, Focal weakness, Headaches, Numbness, Tingling Psychiatric: Denies: Anxiety, Depression, Homicidal Ideations, Suicidal Ideations Endocrine: Denies: Change in Body Habitus, Heat/ Cold Intolerance, Polydipsia, Polyuria Hematologic/ Lymphatic: Denies: Adenopathy, Anemia, Easy Bruising, Easy Bleeding, Petechiae, Purpura VTE Information - Inpt Only VTE Present on Admission: No VTE Mechan Device Prophylaxis: None VTE Pharm Prophylaxis ordered?: Yes Patient Problems: Active and Suspected Problems (Last Reviewed 09/17/17 @ 15:45 by Ulises Varela MD) Hypotension (Acute) Lethargy (Acute) - Physical Exam General: Alert, Oriented x3, Cooperative, No apparent distress, Well developed, Well nourished HEENT: Atraumatic, PERRLA, EOMI, Normocephalic Oral: Moist Mucosa Neck: Supple, No JVD, No Nuchal Rigidity, Trachea Midline, Thyroid Normal Size and Texture Lungs: Clear to auscultation, Normal air movement, No rhonchi, No wheeze, No rales Cardiovascular: Regular rate, Regular Rhythm, Normal S1, Normal S2, No murmurs, No Ectopic Activity, PMI Normal, No rub noted Abdomen: Bowel Sounds Present, Soft, Non Tender, Non-Distended, No hernias noted Extremities: No clubbing, No cyanosis, No edema, Capillary Refill Less than 3 Seconds Skin: No rashes, No breakdown Neurological: Cranial nerves II-XII grossly intact, Neuro grossly intact, Sensory exam intact to light touch and pain, Coordination normal Psych/Mental Status: Normal Affect, Appropriate, Alert and oriented to time, place, person, mood and affect Vital Signs Temp Pulse Resp BP Pulse Ox 97.6 F L 94 24 H 107/71 95 10/29/17 16:23 10/29/17 19:04 10/29/17 16:23 10/29/17 16:23 10/29/17 16:23 Oxygen Delivery Method Room Air Weight: 90.265 kg Body Mass Index (BMI) 33.1 Intake and Output for Last 24 Hours 10/27/17 10/28/17 10/29/17 23:59 23:59 23:59 Intake Total 622 / 622 Balance 622 / 622 Laboratory Tests Past 24 Hrs 10/29/17 10/29/17 10/29/17 15:35 15:35 17:47 Lactic Acid 0.6 Urine Color Yellow Urine Clarity Sl. Cloudy Urine pH 5.0 Ur Specific [place] 1.015 Urine Protein 15 H Urine Glucose (UA) Normal Urine Ketones Negative Urine Occult Blood 10 H Urine Nitrite Negative Urine Bilirubin Negative Urine Urobilinogen Normal Ur Leukocyte Esterase Negative Urine RBC 0 SEEN Urine WBC 0 SEEN Ur Squamous Epith Cells 0 SEEN Amorphous Sediment 1+ Urine Bacteria 0 SEEN Urine Mucus 0 SEEN Urine Opiates Screen POSITIVE H Urine Methadone Screen NEGATIVE Ur Barbiturates Screen NEGATIVE Ur Phencyclidine Scrn NEGATIVE Ur Amphetamines Screen NEGATIVE U Methamphetamin-MDMA POSITIVE H U Benzodiazepines Scrn NEGATIVE Urine Cocaine Screen NEGATIVE U Cannabinoids Screen NEGATIVE Ur Drug Screen Comment Assessment/Plan All Active Problems (Last Reviewed 09/17/17 @ 15:45 by Ulises Varela MD) Hypotension (Acute) Lethargy (Acute) Right hip pain (Resolved) Syncope and collapse (Resolved) LOVE (acute kidney injury) (Acute) NSTEMI (non-ST elevated myocardial infarction) (Resolved) #1 lethargy secondary to polypharmacy-patient's medication will be adjusted, she will be reevaluated tomorrow #2 acute kidney injury-patient will be given IV fluids, recheck labs tomorrow morning #3 avascular necrosis of the right hip #4 degenerative joint disease lumbar spine #5 coronary artery disease with coronary artery stent placement last year #6 Hypotension-probably secondary to acute kidney injury on a backdrop of polypharmacy, continue IV fluids and adjust medications #7 essential hypertension Code Visit OBSV E&M: 39421 Initial observation care L3
--- NOTE | 2017-10-29 20:04 | HP.PCM_ITS ---
Problem List (1) Hypotension Status: Acute Qualifiers: Hypotension type: unspecified hypotension type Qualified Code(s): I95.9 - Hypotension, unspecified (2) Lethargy Status: Acute History of Present Illness Date of Admission: 10/29/17 Chief Complaint: Hypotension, lethargy The patient is a 57 year old F who was sent to the emergency room at [facility] after being seen in her pain management physician's office and noted to have a low blood pressure, lethargy, and speech difficulties. Patient is on multiple medications for pain management, she has avascular necrosis of her right hip as well as chronic back pain and chronic left leg pain due to past history of trauma. Evaluation in the emergency room revealed her blood pressure to be low at 69/42, patient was lethargic but answers questions appropriately and follows commands appropriately. CBC was remarkable for white blood cell count of 11.7, chemistries were unremarkable except for a BUN of 37 and creatinine of 2.29. Patient was placed and observation status for adverse medication reaction due to narcotics, muscle relaxants, and gabapentin as well as hypotension. Patient was given fluids in the emergency room with elevation of her blood pressure into the 90s systolic. Patient's pulse ox on room air was 97%. I talked pain management about her care, I will decrease her gabapentin and Zanaflex, I will also change her over to a fentanyl patch from her [place] ER 15 mg medication, I will hold her oxycodone for now until she is more alert. Past Medical History Past Medical History (Chronic Problems): Chronic Problems (Last Reviewed 09/17/17 @ 15:45 by Ulises Varela MD) Atherosclerosis of [place] coronary artery of [place] heart without angina pectoris (Chronic) Tobacco abuse (Chronic) H/O laminectomy (Chronic) Hypertension (Chronic) Hyperlipidemia (Chronic) Low back pain (Chronic) Medical History: Medical History (Last Reviewed 09/17/17 @ 15:45 by Ulises Varela MD) Atherosclerosis of [place] coronary artery of [place] heart without angina pectoris (Chronic) I25.10 Tobacco abuse (Chronic) Z72.0 Syncope and collapse (Resolved) R55 LOVE (acute kidney injury) (Acute) N17.9 Hypertension (Chronic) I10 Hyperlipidemia (Chronic) E78.5 Low back pain (Chronic) M54.5 Allergies adhesive Adverse Reaction (Verified 10/29/17 12:49) Other baclofen Adverse Reaction (Verified 10/29/17 12:49) LETHARGY Home Medications: Ambulatory Orders Medication Instructions Recorded traZODone [Desyrel] 200 mg PO QHS 09/16/16 Tizanidine HCl [Zanaflex] 4 mg PO TID 11/25/16 DiphenhydrAMINE [Benadryl] 50 mg PO QHS 01/15/17 gabapentin 400 mg capsule 800 mg PO 4X/DAY 03/18/17 rosuvastatin 40 mg tablet 40 mg PO DAILY 30 Days #30 tab 05/25/17 clopidogrel 75 mg tablet 75 mg PO DAILY 30 Days #90 tab 09/17/17 furosemide 20 mg tablet 20 mg PO DAILY #90 tab 09/17/17 lisinopril 20 mg tablet 20 mg PO DAILY #90 tab 09/17/17 morphine ER 15 mg tablet,extended 15 mg PO Q12H 09/17/17 release Acetaminophen [Tylenol Extra 500 mg PO Q4H PRN PRN 10/29/17 Strength] Aspirin E.C. [Ecotrin] 81 mg PO DAILY@0800 10/29/17 Ibuprofen 800 mg PO TID 10/29/17 Metoprolol Tartrate [Lopressor 25 mg PO BID 10/29/17 (beta kusum)] Oxycodone [Oxyir] 5 mg PO BID 10/29/17 Senna/Docusate Sodium [Senokot-S] 2 tablet PO DAILY PRN 10/29/17 Surgical History: Surgical History (Last Reviewed 09/17/17 @ 15:45 by Ulises Varela MD) H/O laminectomy (Chronic) Z98.890 History of left heart catheterization Z98.890 11/17/2016 PRABHAKAR mid RCA and prox LAD Hx of bone graft Onset Date: ~2014 Z98.890 S/P ORIF (open reduction internal fixation) fracture Z96.7, Z87.81 tib/fib Surgical History: herniorrhaphy, hysterectomy, - - laminectomy, left tib-fib fracture with open reduction secondary to trauma, coronary artery stents ?2, left breast biopsy Psychiatric History: No pertinent psych hx [employer] History: No pertinent [employer] history Lives: With Family Smoking Status: Current every day smoker Tobacco Use: Cigarettes Alcohol: Occasional Drugs: None - *Family History Maternal Family History: Family History (Last Reviewed 09/17/17 @ 15:45 by Ulises aVrela MD) Father Hypertension Mother Hypertension History Items: Diabetes Paternal Family History: Family History (Last Reviewed 09/17/17 @ 15:45 by Ulises Varela MD) Father Hypertension Mother Hypertension History Items: Hypertension Review of Systems Constitutional: Denies: Anorexia, Chills, Fever, Night Sweats, Malaise, Weakness , Weight Change, Fatigue Eyes: Denies: Blurred vision, Cataracts, Conjunctivae Inflammation, Double vision, Drainage HEENT: Denies: Difficulty Swallowing, Dysphasia, Ear Pain, Eye Pain, Hearing Changes, Nasal bleeding, Nasal Congestion, Post Nasal Drip Cardiovascular: Denies: Chest Pain, Claudication, Chest Pressure, Chest Tightness, Edema, Heaviness, Orthopnea, Palpitations Respiratory: Denies: Cough, Hemoptysis, Pleuritic Pain, Shortness of Breath, Shortness of breath at rest, Shortness of breath upon exertion, Sputum production Gastrointestinal: Denies: Abdominal Pain, Constipation, Diarrhea, Hematemesis, Hematochezia, Nausea, Melena, Vomiting Genitourinary: Denies: Dysuria, Frequency, Hematuria, Hesitancy, Urgency Gynecological: Denies: Breast symptoms Musculoskeletal: Reports: Back Pain, Joint Pain - Right hip joint, Leg Pain. Denies: Joint stiffness, Joint swelling Skin: Denies: Dryness, Pruritis, Rash Neurological: Denies: Blurred vision, Double vision, Slurred speech, Difficulty swallowing, Focal weakness, Headaches, Numbness, Tingling Psychiatric: Denies: Anxiety, Depression, Homicidal Ideations, Suicidal Ideations Endocrine: Denies: Change in Body Habitus, Heat/ Cold Intolerance, Polydipsia, Polyuria Hematologic/ Lymphatic: Denies: Adenopathy, Anemia, Easy Bruising, Easy Bleeding , Petechiae, Purpura VTE Information - Inpt Only VTE Present on Admission: No VTE Mechan Device Prophylaxis: None VTE Pharm Prophylaxis ordered?: Yes Patient Problems: Active and Suspected Problems (Last Reviewed 09/17/17 @ 15:45 by Ulises Varela MD ) Hypotension (Acute) Lethargy (Acute) - Physical Exam General: Alert, Oriented x3, Cooperative, No apparent distress, Well developed, Well nourished HEENT: Atraumatic, PERRLA, EOMI, Normocephalic Oral: Moist Mucosa Neck: Supple, No JVD, No Nuchal Rigidity, Trachea Midline, Thyroid Normal Size and Texture Lungs: Clear to auscultation, Normal air movement, No rhonchi, No wheeze, No rales Cardiovascular: Regular rate, Regular Rhythm, Normal S1, Normal S2, No murmurs, No Ectopic Activity, PMI Normal, No rub noted Abdomen: Bowel Sounds Present, Soft, Non Tender, Non-Distended, No hernias noted Extremities: No clubbing, No cyanosis, No edema, Capillary Refill Less than 3 Seconds Skin: No rashes, No breakdown Neurological: Cranial nerves II-XII grossly intact, Neuro grossly intact, Sensory exam intact to light touch and pain, Coordination normal Psych/Mental Status: Normal Affect, Appropriate, Alert and oriented to time, place, person, mood and affect Vital Signs Temp Pulse Resp BP Pulse Ox 97.6 F L 94 24 H 107/71 95 10/29/17 16:23 10/29/17 19:04 10/29/17 16:23 10/29/17 16:23 10/29/17 16:23 Oxygen Delivery Method Room Air Weight: 90.265 kg Body Mass Index (BMI) 33.1 Intake and Output for Last 24 Hours 10/27/17 10/28/17 10/29/17 23:59 23:59 23:59 Intake Total 622 / 622 Balance 622 / 622 Laboratory Tests Past 24 Hrs 10/29/17 10/29/17 10/29/17 15:35 15:35 17:47 Lactic Acid 0.6 Urine Color Yellow Urine Clarity Sl. Cloudy Urine pH 5.0 Ur Specific [place] 1.015 Urine Protein 15 H Urine Glucose (UA) Normal Urine Ketones Negative Urine Occult Blood 10 H Urine Nitrite Negative Urine Bilirubin Negative Urine Urobilinogen Normal Ur Leukocyte Esterase Negative Urine RBC 0 SEEN Urine WBC 0 SEEN Ur Squamous Epith Cells 0 SEEN Amorphous Sediment 1+ Urine Bacteria 0 SEEN Urine Mucus 0 SEEN Urine Opiates Screen POSITIVE H Urine Methadone Screen NEGATIVE Ur Barbiturates Screen NEGATIVE Ur Phencyclidine Scrn NEGATIVE Ur Amphetamines Screen NEGATIVE U Methamphetamin-MDMA POSITIVE H U Benzodiazepines Scrn NEGATIVE Urine Cocaine Screen NEGATIVE U Cannabinoids Screen NEGATIVE Ur Drug Screen Comment Assessment/Plan All Active Problems (Last Reviewed 09/17/17 @ 15:45 by Ulises Varela MD) Hypotension (Acute) Lethargy (Acute) Right hip pain (Resolved) Syncope and collapse (Resolved) LOVE (acute kidney injury) (Acute) NSTEMI (non-ST elevated myocardial infarction) (Resolved) #1 lethargy secondary to polypharmacy-patient's medication will be adjusted, she will be reevaluated tomorrow #2 acute kidney injury-patient will be given IV fluids, recheck labs tomorrow morning #3 avascular necrosis of the right hip #4 degenerative joint disease lumbar spine #5 coronary artery disease with coronary artery stent placement last year #6 Hypotension-probably secondary to acute kidney injury on a backdrop of polypharmacy, continue IV fluids and adjust medications #7 essential hypertension Code Visit OBSV E&M: 43332 Initial observation care L3
[2017-10-29] MEDS: Acetaminophen 500 MG Tablet PO (20:49)
[2017-10-29] MEDS: traZODone 100 MG Tablet 200 MG PO (22:23)
[2017-10-29] MEDS: Heparin Injection (Vial) 5,000 UNIT/ML VIAL 5000 UNIT SC (22:23)
[2017-10-29] MEDS: DiphenhydrAMINE 25 MG Capsule 50 MG PO (22:23)
[2017-10-29] MEDS: Metoprolol Tartrate 25 MG Tablet PO (22:23)
[2017-10-30] VITALS (7 sets, daily range): BP systolic 94–157; BP diastolic 58–87; PULSE 97–109; RESP 16–20; TEMP 36.7–37.1; O2SAT 92–96
[2017-10-30] MEDS: 0.9% Normal Saline 1,000 ML 75 ML IV (00:25)
[2017-10-30] MEDS: oxyCODONE 5 MG Tablet PO ×3 (00:25→12:59)
[2017-10-30] MEDS: Acetaminophen 500 MG Tablet PO ×2 (02:51→09:45)
[2017-10-30] MEDS: tiZANidine HCl 2 MG Tablet PO ×2 (02:52→12:00)
[2017-10-30] MEDS: Heparin Injection (Vial) 5,000 UNIT/ML VIAL 5000 UNIT SC ×2 (06:23→12:59)
[2017-10-30] MEDS: Aspirin E.C. 81 MG Tablet PO (09:45)
[2017-10-30] MEDS: Metoprolol Tartrate 25 MG Tablet PO (09:45)
[2017-10-30] MEDS: Clopidogrel Bisulfate 75 MG Tablet PO (09:45)
[2017-10-30] MEDS: Atorvastatin Calcium 80 MG Tablet PO (09:45)
[2017-10-30] MEDS: Lisinopril 20 MG Tablet PO (09:45)
[2017-10-30] MEDS: Gabapentin 400 MG Capsule PO ×2 (09:45→12:59)
[2017-10-30 09:51] LABS: Anion Gap 5 (5-15); BUN 16 mg/dL (7-18); BUN/Creat Ratio 20.4 RATIO (10-20); Calcium,Total 8.7 mg/dL (8.5-10.1); Chloride 115 mmol/L (98-107); Creatinine, Serum 0.78 mg/dL (0.55-1.02); EST Glomerular Filtration Rate 80 mL/min (>60); Est Glom Filt Rate - Afr Amer 97 mL/min (>60); Estimated Creatinine Clearance 72.47 ml/min; Glucose 96 mg/dL (74-106); Potassium 4.7 mmol/L (3.5-5.1); Sodium Level 146 mmol/L (136-145)
--- NOTE | 2017-10-30 12:57 | PCM.DC ---
- Discharge Diagnoses Current Active Problems: Current Active and Chronic Problems (Last Reviewed 09/17/17 @ 15:45 by Ulises Varela MD) Hypotension (Acute) Lethargy (Acute) You will use the following diet at home:: No restrictions Your food should be the consistency of: Regular Your liquids should be the consistency of: Regular/Thin Discharge Activity: Return to Normal Activity Weight Bearing Status: Full weight bearing Allergies/Adverse Reactions: Allergies adhesive Adverse Reaction (Verified 10/29/17 12:49) Other baclofen Adverse Reaction (Verified 10/29/17 12:49) LETHARGY Medications to take at Discharge traZODone [Desyrel] 200 mg PO QHS 09/16/16 DiphenhydrAMINE [Benadryl] 50 mg PO QHS 01/15/17 rosuvastatin 40 mg tablet 40 mg PO DAILY 30 Days #30 tab 05/25/17 clopidogrel 75 mg tablet 75 mg PO DAILY 30 Days #90 tab 09/17/17 lisinopril 20 mg tablet 20 mg PO DAILY #90 tab 09/17/17 Acetaminophen [Tylenol] 500 mg PO Q4H PRN PRN 10/29/17 Aspirin E.C. [Ecotrin] 81 mg PO DAILY@0800 10/29/17 Ibuprofen 800 mg PO TID 10/29/17 Metoprolol Tartrate [Lopressor (beta kusum)] 25 mg PO BID 10/29/17 Senna/Docusate Sodium [Senokot-S] 2 tablet PO DAILY PRN 10/29/17 Gabapentin [Neurontin] 600 mg PO TIDCM 30 Days #90 tab 10/30/17 Oxycodone [Oxyir] 5 - 10 mg PO Q8H PRN PRN 7 Days #40 tab 10/30/17 Tizanidine HCl [Zanaflex] 2 mg PO Q8H PRN PRN tablet 10/30/17 fentaNYL patch [Duragesic patch] 50 mcg TRANSDERM. Q72H 9 Days #3 patch 10/30/17 The following prescriptions were given: Oxycodone [Oxyir] 5 - 10 mg PO Q8H PRN PRN 7 Days #40 tab PRN Reason: Severe Pain (6-10/10) fentaNYL patch [Duragesic patch] 50 mcg TRANSDERM. Q72H 9 Days #3 patch Gabapentin [Neurontin] 600 mg PO TIDCM 30 Days #90 tab Primary Care Physician: Fredy Rodriguez MD [Primary Care Provider] - Please follow up with your Primary Care Physician in: in 2-3 weeks Test Results: Test results from this visit will be discussed in further detail at your follow-up appointment, if applicable. Please Follow Up With: Enrique Lema MD When: Nov 09 2:15 pm Please Follow Up With: Mackenzie Fitzpatrick MD When: early next week-call for appointment
--- NOTE | 2017-10-31 11:50 | PCM.DC.SUM ---
Discharge Date and Diagnosis Date of Admission: 10/29/17 Date of Discharge: 10/30/17 - Primary Discharge Diagnosis #1 drug interaction with somnolence from polypharmacy #2 acute kidney injury #3 avascular necrosis of the right hip #4 degenerative joint disease lumbar spine #5 coronary artery disease #6 hypotension secondary to acute kidney injury on the backdrop of polypharmacy #7 essential hypertension #8 positive tox screen for methamphetamines-etiology unclear, patient denies use - Secondary Discharge Diagnosis Chronic Problems (Last Reviewed 09/17/17 @ 15:45 by Ulises Varela MD) Atherosclerosis of [place] coronary artery of [place] heart without angina pectoris (Chronic) Tobacco abuse (Chronic) H/O laminectomy (Chronic) Hypertension (Chronic) Hyperlipidemia (Chronic) Low back pain (Chronic) Hospital Course and Treatment Operations: None Procedures: None Summary of Care Provided: The patient is a 57 year old F was seen in the emergency room at [facility] after being sent there by pain management due to somnolence and possible side effects from her narcotics. Evaluation in the emergency room revealed patient to be lethargic but responded appropriately to questions, labs were obtained which showed an elevated creatinine and BUN, tox screen was performed which was positive for opiates and methamphetamines. Patient denied any exposure to methamphetamines however. Patient was placed in observation status on PCU, her medications were adjusted with lowering of the dose of her Zanaflex and Neurontin. She was placed on a fentanyl patch, she was given IV fluids and labs were repeated. Patient's kidney functions improved, the next day, patient was seen and examined felt been stable condition for discharge home. Discharge Activity: Return to Normal Activity Weight Bearing Status: Full weight bearing Home Medications: Medications to take at Discharge traZODone [Desyrel] 200 mg PO QHS 09/16/16 DiphenhydrAMINE [Benadryl] 50 mg PO QHS 01/15/17 rosuvastatin 40 mg tablet 40 mg PO DAILY 30 Days #30 tab 05/25/17 clopidogrel 75 mg tablet 75 mg PO DAILY 30 Days #90 tab 09/17/17 lisinopril 20 mg tablet 20 mg PO DAILY #90 tab 09/17/17 Acetaminophen [Tylenol] 500 mg PO Q4H PRN PRN 10/29/17 Aspirin E.C. [Ecotrin] 81 mg PO DAILY@0800 10/29/17 Ibuprofen 800 mg PO TID 10/29/17 Metoprolol Tartrate [Lopressor (beta kusum)] 25 mg PO BID 10/29/17 Senna/Docusate Sodium [Senokot-S] 2 tablet PO DAILY PRN 10/29/17 Gabapentin [Neurontin] 600 mg PO TIDCM 30 Days #90 tab 10/30/17 Oxycodone [Oxyir] 5 - 10 mg PO Q8H PRN PRN 7 Days #40 tab 10/30/17 Tizanidine HCl [Zanaflex] 2 mg PO Q8H PRN PRN tablet 10/30/17 fentaNYL patch [Duragesic patch] 50 mcg TRANSDERM. Q72H 9 Days #3 patch 10/30/17 Following Prescrptions Were Given to Patient: Oxycodone [Oxyir] 5 - 10 mg PO Q8H PRN PRN 7 Days #40 tab PRN Reason: Severe Pain (6-10/10) fentaNYL patch [Duragesic patch] 50 mcg TRANSDERM. Q72H 9 Days #3 patch Gabapentin [Neurontin] 600 mg PO TIDCM 30 Days #90 tab Primary Care Physician: Fredy Rodriguez MD [Primary Care Provider] - Please follow up with your Primary Care Physician in: in 2-3 weeks Please Follow Up With: Enrique Lema MD When: Nov 09 2:15 pm Please Follow Up With: Mackenzie Fitzpatrick MD When: early next week-call for appointment Disposition: Home Minutes spent on discharge:: 25 Patient Condition:: Stable Medical Necessity - Tobacco Use Smoking Status: Current every day smoker Tobacco Use: Cigarettes Meaningful Use Info Meaningful Use Diagnoses (Choose all that apply): None applicable Code Visit OBSV E&M: 66344 Observation care discharge
--- NOTE | 2017-10-31 11:54 | DS.PCM_ITS ---
Discharge Date and Diagnosis Date of Admission: 10/29/17 Date of Discharge: 10/30/17 - Primary Discharge Diagnosis #1 drug interaction with somnolence from polypharmacy #2 acute kidney injury #3 avascular necrosis of the right hip #4 degenerative joint disease lumbar spine #5 coronary artery disease #6 hypotension secondary to acute kidney injury on the backdrop of polypharmacy #7 essential hypertension #8 positive tox screen for methamphetamines-etiology unclear, patient denies use - Secondary Discharge Diagnosis Chronic Problems (Last Reviewed 09/17/17 @ 15:45 by Ulises Varela MD) Atherosclerosis of [place] coronary artery of [place] heart without angina pectoris (Chronic) Tobacco abuse (Chronic) H/O laminectomy (Chronic) Hypertension (Chronic) Hyperlipidemia (Chronic) Low back pain (Chronic) Hospital Course and Treatment Operations: None Procedures: None Summary of Care Provided: The patient is a 57 year old F was seen in the emergency room at [facility] after being sent there by pain management due to somnolence and possible side effects from her narcotics. Evaluation in the emergency room revealed patient to be lethargic but responded appropriately to questions, labs were obtained which showed an elevated creatinine and BUN, tox screen was performed which was positive for opiates and methamphetamines. Patient denied any exposure to methamphetamines however. Patient was placed in observation status on PCU, her medications were adjusted with lowering of the dose of her Zanaflex and Neurontin. She was placed on a fentanyl patch, she was given IV fluids and labs were repeated. Patient's kidney functions improved, the next day, patient was seen and examined felt been stable condition for discharge home. Discharge Activity: Return to Normal Activity Weight Bearing Status: Full weight bearing Home Medications: Medications to take at Discharge traZODone [Desyrel] 200 mg PO QHS 09/16/16 DiphenhydrAMINE [Benadryl] 50 mg PO QHS 01/15/17 rosuvastatin 40 mg tablet 40 mg PO DAILY 30 Days #30 tab 05/25/17 clopidogrel 75 mg tablet 75 mg PO DAILY 30 Days #90 tab 09/17/17 lisinopril 20 mg tablet 20 mg PO DAILY #90 tab 09/17/17 Acetaminophen [Tylenol] 500 mg PO Q4H PRN PRN 10/29/17 Aspirin E.C. [Ecotrin] 81 mg PO DAILY@0800 10/29/17 Ibuprofen 800 mg PO TID 10/29/17 Metoprolol Tartrate [Lopressor (beta kusum)] 25 mg PO BID 10/29/17 Senna/Docusate Sodium [Senokot-S] 2 tablet PO DAILY PRN 10/29/17 Gabapentin [Neurontin] 600 mg PO TIDCM 30 Days #90 tab 10/30/17 Oxycodone [Oxyir] 5 - 10 mg PO Q8H PRN PRN 7 Days #40 tab 10/30/17 Tizanidine HCl [Zanaflex] 2 mg PO Q8H PRN PRN tablet 10/30/17 fentaNYL patch [Duragesic patch] 50 mcg TRANSDERM. Q72H 9 Days #3 patch Following Prescrptions Were Given to Patient: Oxycodone [Oxyir] 5 - 10 mg PO Q8H PRN PRN 7 Days #40 tab PRN Reason: Severe Pain (6-10/10) fentaNYL patch [Duragesic patch] 50 mcg TRANSDERM. Q72H 9 Days #3 patch Gabapentin [Neurontin] 600 mg PO TIDCM 30 Days #90 tab Primary Care Physician: Fredy Rodriguez MD [Primary Care Provider] - Please follow up with your Primary Care Physician in: in 2-3 weeks Please Follow Up With: Enrique Lema MD When: Nov 09 2:15 pm Please Follow Up With: Mackenzie Fitzpatrick MD When: early next week-call for appointment Disposition: Home Minutes spent on discharge:: 25 Patient Condition:: Stable Medical Necessity - Tobacco Use Smoking Status: Current every day smoker Tobacco Use: Cigarettes Meaningful Use Info Meaningful Use Diagnoses (Choose all that apply): None applicable Code Visit OBSV E&M: 96436 Observation care discharge
== END 2017-10-30 12:59 | disposition home or self-care (01) ==
LOC: ED 14:32 → PCU 15:54
PROVIDERS: Admitting Provider Internal Medicine; Emergency Provider Emergency Medicine; Family Provider Internal Medicine; PCP Internal Medicine; Visit Provider Internal Medicine
DX: N17.9 Acute kidney failure, unspecified (principal); I95.9 Hypotension, unspecified; E86.0 Dehydration; M47.896 Other spondylosis, lumbar region; I25.10 Atherosclerotic heart disease of native coronary artery without angina pectoris; I10 Essential (primary) hypertension; M87.850 Other osteonecrosis, pelvis; R40.0 Somnolence; T50.905A Adverse effect of unspecified drugs, medicaments and biological substances, initial encounter; E78.5 Hyperlipidemia, unspecified; Z79.899 Other long term (current) drug therapy; Z79.02 Long term (current) use of antithrombotics/antiplatelets; Z79.891 Long term (current) use of opiate analgesic; F17.210 Nicotine dependence, cigarettes, uncomplicated; G89.29 Other chronic pain; I25.2 Old myocardial infarction
CPT/HCPCS: 71045; 80048; 80307; 80320; 80329; 81001; 83605; 84484; 85025; 93005; 96360; 96361; 96372; 99218; 99282; 99406; J7030; G0378; G0480

== ENCOUNTER 2017-11-24 06:56 | Inpatient (IN) | payer MEDICAID, SELFPAY ==
[2017-11-13 15:38] VITALS: BP 130/90; PULSE 74; RESP 18; TEMP 36.7; O2SAT 93; BMI 32.4
[2017-11-13 16:59] LABS: Prothrombin Time (Protime)PT. 12.8 SECONDS (11.7-14.9)
[2017-11-13 17:00] LABS: Partial Thromboplast Time 28.5 Seconds (24.1-36.2)
[2017-11-13 17:04] LABS: AST(SGOT) 20 U/L (15-37); Alanine Aminotransfer ALT/SGPT 27 U/L (13-56); Albumin, Serum 3.7 g/dL (3.2-5.0); Alkaline Phosphatase 115 U/L (45-117); Globulin 4.3 g/dL (2.2-4.2)
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
--- NOTE | 2017-11-18 10:56 | CASEMGMT ---
Called and spoke with patient regarding dicharge needs after upcoming hip surgery. Patient's plan is to return home with the help of family. Has outpatient therapy set up with [facility], family will assist with transportation. Patients states that there are 2 steps to get inside home, bedroom and bathroom are on 1st level. Has walker, wheelchair, toilet riser, and grab bars already. Patient denies any further needs at this time.
[2017-11-24] VITALS (12 sets, daily range): BP systolic 92–128; BP diastolic 62–92; PULSE 80–102; RESP 16–30; TEMP 36.2–36.8; O2SAT 93–100; BMI 32.4
[2017-11-24] MEDS: oxyCODONE HCl Cr 10 MG Tablet PO (07:37)
[2017-11-24] MEDS: Acetaminophen 500 MG Tablet 1000 MG PO ×3 (07:47→23:00)
[2017-11-24] MEDS: Celecoxib 200 MG Capsule 400 MG PO (07:48)
[2017-11-24] MEDS: Cefazolin 2 GM in 0.9% Normal Saline 100 ML IV (10:00)
--- NOTE | 2017-11-24 11:21 | PCM.OPRPT ---
Report of Operation Date of Procedure: 11/24/17 Pre-Operative Diagnosis: Right hip avascular necrosis with femoral head collapse and osteoarthritis Post-Operative Diagnosis: Right hip avascular necrosis with femoral head collapse and osteoarthritis Surgery/Procedure Performed:: Right direct anterior total hip replacement Description of Surgical Findings:: Stable hip with equal leg lengths fashion photographer: Mauricio Kang Type of Anesthesia:: General Anesthesiologist: Viraj Lim Special Medications: 2 g Ancef, 1 g TXA at incision, 1 g TXA closure, 10 mg Decadron, joint cocktail (5 mg Duramorph, 30 mL of 0.5% Ropivicaine, 1000 units of epinephrine, 30 mg of Toradol) Specimen's removed: Bony cuts Estimated Blood Loss (mL): 200 ml Fluids Replaced: 1400 mL crystalloid Description of Procedure: Components used: 1. Accolade 2 [place] femoral stem size 6 132? 2. Stefanie trident acetabular shell size 50 mm 3. [place] X3 polyethylene D 4. [place] Biolox delta 36mm, +2.5mm femoral head Brief history operative indications: 57 yo f who failed conservative measures for their hip osteoarthritis. X-rays were consistent with osteoarthritis including joint space narrowing, osteophyte formation and subchondral cysts. Total hip replacement was discussed with the patient with risks and benefits including but not limited to blood loss, DVTs, PEs, neurovascular damage, dislocation, general risks of anesthesia including loss of life. Patient demonstrated an understanding medical clearance is obtained the patient was consented for surgery. Procedure: On the date of procedure the patient's right hip was marked in the preoperative area. Patient was then taken back to the operating room where anesthesia assumed control of the C-spine and airway and administered anesthetic. Patient was transferred to the operating table and placed in the supine position. The hips were placed at the break of the bed and a sacral bump was placed. The r lower extremity was then prepped out in a sterile fashion using chlorhexidine while the surgeon scrubbed. The PA was vital in the positioning of the patient. Upon reentering the room the r lower extremity was draped in the standard orthopedic fashion and the incision was marked. A timeout was called and everyone agreed upon the side, the site, the procedure be performed, antibody given, and patient's identity. At this time incision was made through skin, subcutaneous tissue, and fat down to fascia. The fascia was then incised and the TFL was retracted laterally. A retractor was placed on the lateral border of the femoral neck. Attention was directed to the inferior portion of the approach and all crossing vessels were identified and appropriately coagulated. A retractor was then placed on the medial portion of the femoral neck. The anterior capsule was then cleared of all soft tissue and then H shaped capsulotomy was made. The retractors were then placed inside the capsule. The femoral neck was identified and a cleanup cut was made. At this time a power corkscrew was used to remove the femoral head. Attention was then turned toward the acetabulum where the soft tissues were appropriately retracted and the acetabulum was sequentially reamed to 49 mm. A 50 mm cup was then selected and impacted into place. Acetabular liner was impacted into place and locking mechanism was verified. The position of the acetabular cup was then verified under live fluoroscopy. Attention was then turned to the femur. Soft tissue releases on the medial and lateral femoral neck were appropriately done, the leg was externally rotated and lateralized. A Stephens retractor was placed medially and proximally to the greater trochanter this allowed appropriate visualization and exposure of the femoral canal. And exposed the femur we did note that the tip of the greater trochanter fractured off. Upon reduction of the hip it appeared to reduce with ligamentotaxis. Rongeour was then used to remove excess lateral bone. A canal finder and entry broach were used to open the proximal canal. Once we verified we were down the femoral canal we subsequently broached up to a size 6 femur. The appropriate neck was placed in the previously selected head was trialed with a +2.5 mm neck. Traction was pulled and the hip was reduced with internal rotation. Once it was appropriately reduced and stability was checked. There was minimal shuck, equal leg lengths and appropriate stability with hyperextension and external rotation as well as with 90? flexion and internal rotation. Fluoroscopy was then also used to verify the position of the components and leg lengths using the contralateral side for comparison. The trial components were then dislocated the proximal femur was again exposed and the components were removed from the wound. The final components were verified and opened. The wound was copiously irrigated out with normal saline. The acetabulum was checked for any residual debris. The final components were placed and impacted. Traction and internal rotation were again used to reduce the hip. After adequate reduction the hip remained stable with appropriate leg lengths. The final components were once again checked with live fluoroscopy and were found to be satisfactory. The wound was then copiously irrigated with normal saline once more, and hemostasis was obtained. Closure was then done using #1 Vicryl runner to close the fascia. A 2-0 vicryl interuppted sutures were used to close the subcutaneous skin. A 3-0 Monocryl and Steri-Strips were used for final skin closure. A Silverlon dressing was placed. Patient was awakened by anesthesia and [facility] Patient was then transferred to the PACU for recovery. Postoperative plan: Patient will get 24 hours postop antibiotics. Patient will get in-house physical therapy and will be weight-bear as tolerated. Patient will follow up in office in 2 weeks for a wound check and x-rays. During the course of the procedure the physician medical assistant cardiology played a vital role. His intimate knowledge of my steps in the procedure aided in safe and expedient completion of the procedure. The PA played a vital rolls in positioning particularly in obtaining the appropriate positioning of the sacral bump. The PA was also vital in the retraction of soft tissues during the exposure and especially the femoral work as this is a vital part of the procedure to prevent complications and fractures. The PA was also vital and protecting soft tissues during times of bony cuts and reaming. He also played a vital role in closure with my direct supervision. The PA was also important during reduction and dislocation of the joint and trials intraoperatively. Grafts/Implants Used: Stefanie accolade 2 - Complications Greater trochanteric tip fracture - Admit VTE Documentation VTE Present on Admission: No VTE Mechan Device Prophylaxis: SCD's, Thigh High RONAL Hose VTE Pharm Prophylaxis ordered?: Yes
[2017-11-24] MEDS: Lactated Ringers 1,000 ML 125 ML IV ×2 (12:42→17:59)
[2017-11-24] MEDS: oxyCODONE 5 MG Tablet PO ×2 (15:42→20:17)
[2017-11-24] MEDS: Furosemide 20 MG Tablet PO (15:42)
[2017-11-24] MEDS: Gabapentin 800 MG Tablet PO (15:43)
[2017-11-24] MEDS: Famotidine 20 MG Tablet PO (15:43)
[2017-11-24] MEDS: Senna/Docusate Sodium 1 Tablet 2 TABLET PO ×2 (15:44→23:00)
[2017-11-24] MEDS: Aspirin E.C. 81 MG Tablet PO (15:45)
[2017-11-24] MEDS: Clopidogrel Bisulfate 75 MG Tablet PO (15:45)
[2017-11-24] MEDS: Cefazolin 1 GM/50 ML BAG IV (17:59)
[2017-11-24] MEDS: traZODone 100 MG Tablet 200 MG PO (22:59)
[2017-11-24] MEDS: DiphenhydrAMINE 25 MG Capsule 50 MG PO (23:00)
[2017-11-24] MEDS: Atorvastatin Calcium 80 MG Tablet PO (23:01)
[2017-11-24] MEDS: Metoprolol Tartrate 25 MG Tablet PO (23:01)
[2017-11-25] MEDS: Cefazolin 1 GM/50 ML BAG IV (01:34)
[2017-11-25] MEDS: Lactated Ringers 1,000 ML 125 ML IV (01:34)
[2017-11-25] MEDS: oxyCODONE 5 MG Tablet PO ×4 (01:35→14:22)
[2017-11-25 01:40] VITALS: BP 125/68; PULSE 88; RESP 18; TEMP 36.8; O2SAT 96
[2017-11-25] MEDS: Rivaroxaban 10 MG Tablet PO (05:57)
[2017-11-25] MEDS: Acetaminophen 500 MG Tablet 1000 MG PO ×2 (05:57→12:54)
[2017-11-25 06:34] LABS: Hematocrit 34.3 % (37-47); Hemoglobin 10.8 g/dl (12.0-15.0); Mean Corp Hgb Conc 31.5 g/gl (32-36); Mean Corpuscular Hgb 26.7 pg (27.0-32.0); Mean Corpuscular Volume 84.9 fL (81-99); Mean Platelet Vol. 10.8 fl (6.2-12.0); Platelet Count 215 K/mm3 (150-450); RBC Distribution Width CV 16.9 % (11.6-14.6); RBC Distribution Width SD 52.8 fl (35.1-43.9); Red Blood Count 4.04 M/mm3 (4.2-5.4); White Blood Count 11.6 K/mm3 (4.4-11.0)
[2017-11-25 06:37] LABS: Anion Gap 6 (5-15); BUN 16 mg/dL (7-18); BUN/Creat Ratio 14.8 RATIO (10-20); Calcium,Total 8.3 mg/dL (8.5-10.1); Chloride 109 mmol/L (98-107); Creatinine, Serum 1.08 mg/dL (0.55-1.02); EST Glomerular Filtration Rate 56 mL/min (>60); Est Glom Filt Rate - Afr Amer 67 mL/min (>60); Estimated Creatinine Clearance 52.34 ml/min; Glucose 143 mg/dL (74-106); Potassium 4.4 mmol/L (3.5-5.1); Sodium Level 145 mmol/L (136-145)
[2017-11-25 06:39] LABS: Scan Indicated on CBC? Y/N NO
--- NOTE | 2017-11-25 06:54 | PCM.PN.ORT ---
Subjective: The patient was sitting in bed upon examination. Patient denies any chest pain, shortness of breath, dizziness, lightheadedness, nausea or vomiting, or calf pain. Pain is controlled on medications. No adverse overnight events. Patient's plan was to go home. However she states she had a falling out with her aunt where she stays. Her aunt told her not to come back. She has no other place to go. Overall patient is doing well. Patient states she is also in search of a new primary care physician. Her existing primary care physician is 2 hours away. He is not refilling the trazodone that she takes at nighttime for sleep. She is requesting a refill until she gets her primary care physician. Objective: Vital signs stable and afebrile. Patient is able to plantarflex and dorsiflex actively. Sensation is intact to light touch to saphenous, sural, superficial and deep peroneal, and tibial distribution. Dressing is clean dry and intact. Negative Homans bilaterally, negative signs and symptoms of DVT. - Physical Exam General: Alert, Oriented x3, Cooperative, No apparent distress Vital Signs Temp Pulse Resp BP Pulse Ox 98.3 F 88 18 125/68 H 96 11/25/17 01:40 11/25/17 01:40 11/25/17 01:40 11/25/17 01:40 11/25/17 01:40 Oxygen Flow Rate (L/min) 2 Oxygen Delivery Method Room Air Weight: 88.4 kg Body Mass Index (BMI) 32.4 Finger Stick Blood Glucose 168 Intake and Output for Last 24 Hours 11/23/17 11/24/17 11/25/17 23:59 23:59 23:59 Intake Total 3285 / 3285 1295 / 1295 Output Total 500 / 500 800 / 800 Balance 2785 / 2785 495 / 495 Laboratory Tests Past 24 Hrs 11/25/17 11/25/17 05:41 05:41 WBC 11.6 H RBC 4.04 L Hgb 10.8 L Hct 34.3 L MCV 84.9 MCH 26.7 L MCHC 31.5 L RDW 16.9 H RDW Differential 52.8 H Plt Count 215 MPV 10.8 Sodium 145 Potassium 4.4 Chloride 109 H Carbon Dioxide 30.0 Anion Gap 6 BUN 16 Creatinine 1.08 H Estim Creat Clear Calc 52.34 Est GFR (MDRD) Af Amer 67 Est GFR (MDRD) Non-Af 56 L BUN/Creatinine Ratio 14.8 Glucose 143 H Calcium 8.3 L Medical Necessity - Tobacco Use Smoking Status: Current every day smoker Assessment/Plan All Active Problems (Last Reviewed 09/17/17 @ 15:45 by Ulises Varela MD) Hypotension (Acute) Lethargy (Acute) Right hip pain (Resolved) Syncope and collapse (Resolved) LOVE (acute kidney injury) (Acute) NSTEMI (non-ST elevated myocardial infarction) (Resolved) 1. S/P right direct anterior total hip arthroplasty POD #1 2. Continue Pain Medications: Tylenol and oxycodone 3. DVT Prophylaxis: Xarelto 4. PT/OT: Weightbearing as tolerated 5. H & H: 10.8/34.3, asymptomatic 6. Leukocytosis: Currently 11.6, afebrile. Patient did receive Decadron intraoperatively 7. Encouraged Incentive Spirometry 8. Disposition: Plan is for possible discharge home today if patient tolerates physical therapy and pain is controlled. I discussed with the patient she needs to have conversation with her aunt where she resides. We will have case management get involved. With regards to the trazodone, I did tell her I will give her one prescription but she needs to get this from her primary care physician in the future. She is in the process of finding a primary care physician locally. Patient will follow-up per postop instructions. Prescriptions are attached to chart.
--- NOTE | 2017-11-25 07:04 | PCM.DC.THR ---
Discharge Diet: No Restrictions Discharge Activity: May Not Drive - while taking narcotic pain medications. May shower in (days): 1 - Turned dressing away from water Ice area for (Minutes): 20 - Every 1-2 hours while awake Weight Bearing Status: Weight bearing as tolerated Elevate: Operative Extremity Additional Activity Instructions:: Wear elastic stockings for 2 weeks. DO NOT use alcohol with narcotic pain medication. DO NOT make important decisions while taking narcotic medication. If you have problems with taking your medication (rash, itching, nausea, etc.) call the office at once. Call your doctor if your incision/area has: Increased Pain/ Swelling, Increased Redness, Foul Smelling Discharge Call your doctor if you observe: Fever of 101 or Higher Remove Dressing in (days):: 4 - Okay to remove on November 29, 2017 Additional Instructions: Follow [facility] postop instructions Place washcloth over incision until well healed to prevent from maceration and poor healing of the incision. Allergies/Adverse Reactions: Allergies adhesive Adverse Reaction (Verified 11/13/17 15:18) Other baclofen Adverse Reaction (Verified 11/13/17 15:18) LETHARGY Medications to take at Discharge DiphenhydrAMINE [Benadryl] 50 mg PO QHS 01/15/17 lisinopril 20 mg tablet 20 mg PO DAILY #90 tab 09/17/17 Aspirin E.C. [Ecotrin] 81 mg PO DAILY@0800 10/29/17 Metoprolol Tartrate [Lopressor (beta kusum)] 25 mg PO BID 10/29/17 Clopidogrel Bisulfate [Plavix] 75 mg PO DAILY 11/13/17 Furosemide [Lasix] 20 mg PO DAILY 11/13/17 Gabapentin [Neurontin] 800 mg PO TIDCM 11/13/17 Rosuvastatin Calcium [Crestor] 40 mg PO DAILY 11/13/17 Tizanidine HCl [Zanaflex] 4 mg PO Q8H PRN PRN 11/13/17 fentaNYL patch [Duragesic patch] 50 mcg TRANSDERM. Q72H 11/13/17 Acetaminophen [Tylenol] 1,000 mg PO Q8 #90 tab 11/25/17 Oxycodone [Oxyir] 5 - 10 mg PO Q4H PRN PRN 5 Days #60 tab 11/25/17 Rivaroxaban [Xarelto] 10 mg PO DAILY@0600 #13 tab 11/25/17 Senna/Docusate Sodium [Senokot-S] 2 tab PO BID #20 tab 11/25/17 traZODone [Desyrel] 200 mg PO QHS #30 tab 11/25/17 The following prescriptions were given: Oxycodone [Oxyir] 5 - 10 mg PO Q4H PRN PRN 5 Days #60 tab PRN Reason: Mod-Severe Pain (-01/06) Acetaminophen [Tylenol] 1,000 mg PO Q8 #90 tab Rivaroxaban [Xarelto] 10 mg PO DAILY@0600 #13 tab traZODone [Desyrel] 200 mg PO QHS #30 tab Senna/Docusate Sodium [Senokot-S] 2 tab PO BID #20 tab Primary Care Physician: Fredy Rodriguez MD [Primary Care Provider] - Test Results: Test results from this visit will be discussed in further detail at your follow-up appointment, if applicable. Please Follow Up With: [facility] When: 11/27/17 @ 1:00 pm Please Follow Up With: Mauricio Kang PA-C When: 12/07/17
--- NOTE | 2017-11-25 09:04 | PCA ---
pt in therapy
[2017-11-25 10:00] VITALS: BP 116/77; PULSE 76; RESP 16; TEMP 36.5; O2SAT 97
[2017-11-25] MEDS: Furosemide 20 MG Tablet PO (10:06)
[2017-11-25 10:07] VITALS: PULSE 76
[2017-11-25] MEDS: Senna/Docusate Sodium 1 Tablet 2 TABLET PO (10:07)
[2017-11-25] MEDS: Aspirin E.C. 81 MG Tablet PO (10:07)
[2017-11-25] MEDS: Gabapentin 800 MG Tablet PO ×2 (10:07→12:54)
[2017-11-25] MEDS: Metoprolol Tartrate 25 MG Tablet PO (10:07)
[2017-11-25] MEDS: Lisinopril 20 MG Tablet PO (10:07)
[2017-11-25] MEDS: Famotidine 20 MG Tablet PO (10:07)
[2017-11-25] MEDS: tiZANidine HCl 2 MG Tablet 4 MG PO (10:10)
[2017-11-25] MEDS: Clopidogrel Bisulfate 75 MG Tablet PO (10:12)
--- NOTE | 2017-11-25 10:30 | NURSING ---
HOME FENTANYL PATCHED REMOVED AND WASTED WITH Adonay GONZALES RN.
--- NOTE | 2017-11-25 12:45 | CASEMGMT ---
MAMADOU DA SILVA Face to Face with patient for initial transition planning/care coordination assessment. RN CM introduced self and role at [facility]. Patient sitting in chair, alert and oriented. Patient willing to participate in assessment and is able to answer all questions appropriately. Care providers, pharmacy, and demographics verified. See link attached. Pat wishes to discharge to aunt's home, and is [facility] with [facility] with aunt providing transportation. Patient states she has no further needs or concerns at this time. CM to follow for discharge planning needs that may arise. Disposition Plan: Patient to discharge home with outpatient therapy, family support, and follow-up plans in place. Cherelle SUH, RN, CM
[2017-11-25] MEDS: 0.9% NaCl Peripheral Flush Adult/Peds IV (12:55)
[2017-11-25] MEDS: Morphine 2 MG/ML Syringe IV (12:55)
[2017-11-25 14:22] VITALS: BP 92/62; PULSE 76; RESP 18; TEMP 36.8; O2SAT 95
== END 2017-11-25 16:30 | disposition home or self-care (01) | DRG 209 ==
LOC: ACINP 06:56 → MS3 08:52
PROVIDERS: Anesthesiology; Admitting Provider Specialist; Family Provider Internal Medicine; PCP Internal Medicine; Visit Provider Specialist
PROC: 0SR904A Replacement of Right Hip Joint with Ceramic on Polyethylene Synthetic Substitute, Uncemented, Open Approach (ICD-10-PCS; CPT 27284; principal; 2017-11-24 09:20)
DX: M87.851 Other osteonecrosis, right femur (principal); M16.11 Unilateral primary osteoarthritis, right hip; F17.210 Nicotine dependence, cigarettes, uncomplicated; E78.00 Pure hypercholesterolemia, unspecified; I10 Essential (primary) hypertension; I25.2 Old myocardial infarction; Z86.711 Personal history of pulmonary embolism; Z95.5 Presence of coronary angioplasty implant and graft
CPT/HCPCS: 36415; 73501; 73502; 76000; 80048; 80076; 85027; 85610; 85730; 87081; 97110; 97116; 97162; 97166; 97530; C1776; J7120; A4216; J2405

== ENCOUNTER 2018-03-11 19:15 | Emergency (ER) | payer MEDICAID, SELFPAY ==
[2018-03-05 15:33] VITALS: BMI 31.4
[2018-03-11 19:16] VITALS: BP 80/64; PULSE 59; RESP 16; TEMP 36.8; O2SAT 94; BMI 32.2
--- NOTE | 2018-03-11 19:39 | RAD_ITS ---
STUDY: X-RAY - LUMBAR SPINE REASON FOR EXAM: Female, 57 years old. Frequent falls. TECHNIQUE: 3 view(s) of the lumbar spine were obtained. COMPARISON: MRI dated May 06, 2017 FINDINGS: Normal lumbar lordosis. There is no substantial scoliosis. There is a normal alignment of the vertebrae. There is diffuse demineralization with multi-level endplate spondylosis. There is multi-level degenerative disc disease with multi-level disc space narrowing. There is atherosclerotic calcification of the abdominal aorta without a demonstrated aneurysm. There is a right hip arthroplasty. RAD/Lumbar Spine 2 or 3 Views IMPRESSION: Degenerative changes of the spine, as detailed above. Atherosclerosis. Electronically Signed: Pura Queen MD at 21:29 EST Tel , Service support ,
--- NOTE | 2018-03-11 19:39 | EKG12_ITS ---
Test Reason : SYNCOPE Blood Pressure : / mmHG Vent. Rate : 079 BPM Atrial Rate : 079 BPM P-R Int : 134 ms QRS Dur : 074 ms QT Int : 386 ms P-R-T Axes : 056 007 041 degrees QTc Int : 442 ms Normal sinus rhythm Low voltage QRS Borderline ECG Confirmed by LANA MICHAEL, NABOR ([id number]), make up editor SANCHO BAKER ([id number] on 03/12/2018 12:00:44 PM Referred By: MOON Confirmed By:NABOR SCHWARTZ MD
--- NOTE | 2018-03-11 19:40 | RAD_ITS ---
STUDY: X-RAY - RIGHT HIP REASON FOR EXAM: Female, 57 years old. Pain TECHNIQUE: 2 views of the hip. COMPARISON: November 24, 2017 FINDINGS: Hip prosthesis is noted in anatomic alignment and position.. There is a lucency through the base of the greater trochanter suggesting acute fracture with very mild separation of fracture fragments which is not identified on prior exam. RAD/HIP, UNI W/ Pelvis 2-3 Views IMPRESSION: Apparent new fracture through base of the greater trochanter status post right hip prosthesis placement Electronically Signed: Michael Meza MD at 21:32 EST , Service support ,
[2018-03-11 19:43] VITALS: O2SAT 96
--- NOTE | 2018-03-11 19:43 | ED.DCSUM_ITS ---
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 She has been falling multiple times family called paramedics per EMS the family reported to them to staff that the patient has been popping pills all day and kept falling they could not get her to stop taking the pills so they called EMS, the patient indicates she is taking her medications as prescribed does not believe she is abusing them Physical Examination: [] 119/80 pulse ox 95% room air General, no distress resting comfortably she seems sleepy and tired she denies head injury she complains of lumbar back pain left foot pain she denies head neck chest or abdominal pain HEENT is generally unremarkable The neck is supple no adenopathy Cardiovascular, regular rate and rhythm Lungs, clear bilateral Abdomen, soft nontender Extremities, no clubbing cyanosis or edema Neurologic, awake alert answering questions appropriately moving all 4 extremities, complains of some nonspecific left foot pain, complains of very vague nonspecific lumbar back pain with some exacerbation of her chronic back pain syndrome Test Results: [] Emergency Department Course and Treatment: [] Given her complaints screening labs IV fluids The patient's creatinine is almost 5 this is a marked change from her baseline her other studies x-rays are unremarkable, except her hip x-ray which per radiology shows a lucency around the base of the prosthesis that appears to represent a new fracture Discussed this finding with the patient she indicates that her hip is actually not bothering her now she is moving it with full range of motion and she was t old by her surgeon that this fracture occurred in the perioperative period and she states that this is not a new finding EKG is not had much to eat or drink in the last few days for a variety of unsp ecified reasons, her aunt is here and again reports the patient has been overmedicating herself with her meds and the aunt believes that the patient also has gotten a prescription for Valium from some other outpatient provider that would be different from [place] pain [facility] Dr. Mansfield for who her pain is managed and she receives Vicodin Explained to the patient her aunt and that she should be admitted for further management of the above explained the renal failure could be permanent lead to sudden dialysis etc. however the patient indicated that tomorrow she has a court date that she has been waiting for for 3 years to further process her disability claim that she will not miss she voiced back to me the concern related to the renal failure dialysis etc. but still refused to be admitted, her initial blood pressure was 119 over palp, at rate later fell to 88, she is receiving a 3 L fluid bolus she is drinking p.o. fluids she is awake and alert she insists on being discharged because of the above at this time we will continue to hydrate her until her blood pressure is in a more normal range, and then she will be allowed to sign out AMA Treatment Plan: [] Disposition: [] Signing out AMA refused admission as above Impression: [] Acute renal injury, dehydration, transient hypotension, overmedication with Valium and possibly [place] This note was generated with [employer] dictation software. It may contain incorrect words, spelling, and punctuation that were not noted in review of the chart prior to signing ED Disposition - Plan for ED Patient: Chief Complaint: Fall Instructions: Discharge Instructions for Acute Kidney Injury, ED Mechanical Fall, ED Insufficiency Renal Referrals: Ana Oates MD [Primary Care Provider] - Additional Instructions: Follow-up with your doctors as soon as possible, return to the emergency department if worse, do not overmedicate yourself with your Valium and [place], see all of your outpatient providers including her pain management provider to coordinate your ongoing pain management needs to avoid complications
--- NOTE | 2018-03-11 19:43 | RAD_ITS ---
STUDY: X-RAY - LEFT FOOT CLINICAL: Female, 57 years old. Frequent falls. TECHNIQUE: 3 view(s) of the foot. COMPARISON: None. FINDINGS: There is demineralization of the rear and midfoot bones. There is a plate and screw fixation device within the distal fibula. There are screws traversing the distal tibia visualized as well. There are degenerative changes within the midfoot. There is an enthesophyte arising from the posterior calcaneus at the Achilles tendon insertion site. Normal metatarsi. There is degenerative arthrosis of the metatarsophalangeal joint of the hallux . Normal interphalangeal joint of the great toe. Normal phalanges of the great toe. Normal second through fifth metatarsophalangeal joints. Normal interphalangeal joints and phalanges of the lesser toes. The soft tissue structures are unremarkable. RAD/Foot min 3 Views IMPRESSION: No acute osseous injury. Degenerative changes. Electronically Signed: Pura Queen MD at 21:15 EST Tel , Service support ,
[2018-03-11] MEDS: 0.9% Normal Saline 1,000 ML 150 ML IV (19:49)
[2018-03-11 20:02] LABS: Absolute Lymphocyte Count 1.98 X10^3/ul (0.83-4.51); Absolute Neutrophil Count 10.1 X10^3/uL (2.0-7.7); Basophil# 0.01 X10^3/uL; Basophil% 0.1 % (0-1); Eosinophil# 0.03 X10^3/uL; Eosinophils% 0.2 % (0-5); Hematocrit 43.2 % (37-47); Hemoglobin 13.7 g/dl (12.0-15.0); Lymphocyte # 1.98 X10^3/ul (4.0); Lymphocyte % 15.4 % (19-41); Mean Corp Hgb Conc 31.7 g/gl (32-36); Mean Corpuscular Hgb 27.2 pg (27.0-32.0); Mean Corpuscular Volume 85.9 fL (81-99); Mean Platelet Vol. 10.3 fl (6.2-12.0); Monocyte# 0.69 X10^3/uL; Monocyte% 5.4 % (0-10); Neutrophil # 10.08 X10^3/uL (2.7-7.7); Neutrophil % 78.7 % (47-70); Platelet Count 249 K/mm3 (150-450); RBC Distribution Width CV 15.6 % (11.6-14.6); RBC Distribution Width SD 49.6 fl (35.1-43.9); Red Blood Count 5.03 M/mm3 (4.2-5.4); White Blood Count 12.8 K/mm3 (4.4-11.0)
[2018-03-11 20:03] LABS: POSITIVE COUNT NO; POSITIVE DIFFERENTIAL NO; POSITIVE MORPHOLOGY NO
[2018-03-11 20:16] LABS: Anion Gap 9 (5-15); BUN 32 mg/dL (7-18); Calcium,Total 8.7 mg/dL (8.5-10.1); Chloride 101 mmol/L (98-107); Creatinine, Serum 4.59 mg/dL (0.55-1.02); EST Glomerular Filtration Rate 11 mL/min (>60); Est Glom Filt Rate - Afr Amer 13 mL/min (>60); Estimated Creatinine Clearance 12.31 ml/min; Glucose 110 mg/dL (74-106); Potassium 4.6 mmol/L (3.5-5.1); Sodium Level 133 mmol/L (136-145)
--- NOTE | 2018-03-11 20:35 | RAD_ITS ---
STUDY: X-RAY CHEST REASON FOR EXAM: Female, 57 years old. Frequent falls, pain. TECHNIQUE: Single AP portable view of the chest. COMPARISON: To October 2017 FINDINGS: The lungs are clear and expanded. There is no demonstrated pleural abnormality. Normal size heart. Normal mediastinum and joe. Normal visualized pulmonary arteries. There is atherosclerotic calcification of the aortic arch with tortuosity. Normal visualized thoracic spine. Normal visualized ribs, clavicles, and shoulders. There is no demonstrated abnormality of the visualized soft tissue structures of the upper abdomen. RAD/Chest 1 View (Portable) IMPRESSION: No evidence of acute cardiopulmonary process. Electronically Signed: Pal Harris DO at 21:28 EST , Service support ,
[2018-03-11 21:15] VITALS: BP 80/55; PULSE 89; RESP 16; O2SAT 96
[2018-03-11] MEDS: 0.9% Normal Saline 1,000 ML 999 ML IV (21:30)
[2018-03-11 22:26] VITALS: BP 164/109; PULSE 98; RESP 16; O2SAT 94
--- NOTE | 2018-03-11 22:31 | DCINST.ED_ITS ---
ED Disposition - Plan for ED Patient: Chief Complaint: Fall Instructions: ED Mechanical Fall, ED Insufficiency Renal, Discharge Instructions for Acute Kidney Injury Referrals: Ana Oates MD [Primary Care Provider] - Additional Instructions: Follow-up with your doctors as soon as possible, return to the emergency department if worse, do not overmedicate yourself with your Valium and [place], see all of your outpatient providers including her pain management provider to coordinate your ongoing pain management needs to avoid complications
--- NOTE | 2018-03-11 22:42 | ED.RN ---
Addendum entered by Batool Sanders 03/11/18 22:43: PT WAS EXPLAINED TO BY DR HANSEN THE RISKS OF LEAVING DUE TO HER ILLNESSES, PT STATED SHE UNDERSTOOD THE RISKS AND THEN SIGNED AMA FORM, PT WAS TOLD SHE COULD COME BACK AT ANY TIME. 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
--- OUTSIDE RECORDS SUMMARY | 2018-04-27 15:16 | XMS RPT_ITS ---
:1960 Author Organization OHIP Support Name Relationship Address Phone ELAYNE JENKINS Unavailable [facility] [address] + [facility] [address] UE Unavailable Unavailable Unavailable ELAYNE JENKINS Unavailable . + [place] [address] UE Unavailable Unavailable Unavailable ELAYNE JENKINS Unavailable Unavailable + UE Unavailable Unavailable Unavailable ELAYNE JENKINS Unavailable . + [place] [address] UE Unavailable Unavailable Unavailable ELAYNE JENKINS Unavailable . + [place] [address] UE Unavailable Unavailable Unavailable ELAYNE JENKINS Unavailable . + ., . . UE Unavailable Unavailable Unavailable SUSAN YBARRA Unavailable Unavailable + ELAYNE JENKINS Unavailable Unavailable + UE Unavailable Unavailable Unavailable UE Unavailable Unavailable Unavailable UE Unavailable Unavailable Unavailable UE Unavailable Unavailable Unavailable UE Unavailable Unavailable Unavailable SUSAN YBARRA Unavailable [facility] + [place] [address] UE Unavailable Unavailable Unavailable SUSAN YBARRA Unavailable [facility] + [place] [address] UE Unavailable Unavailable Unavailable SUSAN YBARRA Unavailable [facility] + [place] [address] UE Unavailable Unavailable Unavailable SUSAN YBARRA Unavailable [facility] + [place] [address] UE Unavailable Unavailable Unavailable SUSAN YBARRA Unavailable [facility] + [place] [address] UE Unavailable Unavailable Unavailable SUSAN YBARRA Unavailable [facility] + [place] [address] UE Unavailable Unavailable Unavailable GRASSMAN, Unavailable [address] + [place] [address] UE Unavailable Unavailable Unavailable RUDYFABIAN PRICEAN Unavailable [address] + [place] [address] UE Unavailable Unavailable Unavailable RUDYFABIAN PRICEAN Unavailable [address] + [place] [address] UE Unavailable Unavailable Unavailable RUDYALBERT Unavailable [address] + [place] [address] UE Unavailable Unavailable Unavailable RUDYALBERT Unavailable [address] + [place] [address] UE Unavailable Unavailable Unavailable RUDYFABIAN PRICEAN Unavailable [address] + [place] [address] UE Unavailable Unavailable Unavailable RUDYFABIAN PRICEAN Unavailable [address] + [place] [address] UE Unavailable Unavailable Unavailable RUDYALBERT Unavailable [address] + [place] [address] UE Unavailable Unavailable Unavailable RUDYFABIAN PRICEAN Unavailable [address] + [place] [address] UE Unavailable Unavailable Unavailable RUDYFABIAN PRICEAN Unavailable [address] + [place] [address] UE Unavailable Unavailable Unavailable RUDYFABIAN PRICEAN Unavailable [address] + [place] [address] UE Unavailable Unavailable Unavailable RUDYALBERT Unavailable [address] + [place] [address] UE Unavailable Unavailable Unavailable RUDYFABIAN PRICEAN Unavailable [address] + [place] [address] UE Unavailable Unavailable Unavailable AMADA Unavailable [address] + [place] [address] UE Unavailable Unavailable Unavailable RUDYALBERT Unavailable [address] + [place] [address] UE Unavailable Unavailable Unavailable RUDYALBERT Unavailable [address] + [place] [address] UE Unavailable Unavailable Unavailable UE Unavailable Unavailable Unavailable UE Unavailable Unavailable Unavailable Care Team Providers Name Role Phone Randell, Dr. Guerita Coley Attending Unavailable Randell, Dr. Guerita Coley Admitting Unavailable Nurse, Surgery Attending Unavailable Oleghe, Efewongbe Referring Unavailable Yassine Fischer Attending Unavailable Oleghe, Efewongbe Primary Care Unavailable Oleghe, Efewongbe Attending Unavailable Oleghe, Efewongbe Referring Unavailable Oleghe, Efewongbe Primary Care Unavailable Tereletsky, Rigo Admitting Unavailable Tereletsky, Rigo Referring Unavailable Kitawae Elayne Attending Unavailable Tereletsky, Rigo Admitting Unavailable Tereletsky, Rigo Attending Unavailable Tereletsky, Rigo Referring Unavailable Oleghe, Efewongbe Primary Care Unavailable Tereletsky, Rigo Consulting Unavailable Rigo Solorio HEAVY MACHINERY OPERATOR-C Attending Unavailable Oleghe, Efewongbe Referring Unavailable Antunez, Rhea Attending Unavailable Antunez, Rhea Referring Unavailable JENNIFER QUINTERO Primary Care Unavailable Rhea Antunez Attending Unavailable DOCTOR, OUT OF TOWN Referring Unavailable JENNIFER QUINTERO Primary Care Unavailable Antunez, Rhea Attending Unavailable Antunez, Rhea Referring Unavailable JENNIFER QUINTERO Primary Care Unavailable JENNIFER QUINTERO Primary Care Unavailable Tereletsky, Rigo Admitting Unavailable Azam, Ronal Consulting Unavailable Azul Landry Attending Unavailable Basali, Ayman Consulting Unavailable Tereletsky, Rigo Admitting Unavailable Tereletsky, Rigo Attending Unavailable JENNIFER QUINTERO Primary Care Unavailable Tereletsky, Rigo Consulting Unavailable Tereletsky, Rigo Admitting Unavailable Viraj Tamez Attending Unavailable JENNIFER QUINTERO Primary Care Unavailable Azam, Ronal Consulting Unavailable Jopperi, Viraj Consulting Unavailable Tereletsky, Rigo Admitting Unavailable Elayne Santamaria Attending Unavailable Tereletsky, Rigo Referring Unavailable Oleghe, Efewongbe Primary Care Unavailable Elayne Santamaria Consulting Unavailable Basali, Angelman Attending Unavailable Basali, Ayman Referring Unavailable Oleghe, Efewongbe Primary Care Unavailable Tereletsky, Rigo Admitting Unavailable Viraj Tamez Attending Unavailable JENNIFER QUINTERO Primary Care Unavailable Azam, Ronal Consulting Unavailable Jopperi, Viraj Consulting Unavailable Tereletsky, Rigo Admitting Unavailable Azul Landry Attending Unavailable JENNIFER QUINTERO Primary Care Unavailable Azam, Ronal Consulting Unavailable Basali, Ayman Consulting Unavailable White, Azul Consulting Unavailable Tereletsky, Rigo Admitting Unavailable White, Azul Attending Unavailable JENNIFER QUINTERO Primary Care Unavailable Azam, Ronal Consulting Unavailable Basali, Ayman Consulting Unavailable White, Azul Consulting Unavailable Avery, Ulises Attending Unavailable DOCTOR, OUT OF TOWN Referring Unavailable JENNIFER QUINTERO Primary Care Unavailable Azam, Ronal Attending Unavailable Azam, Ronal Referring Unavailable JENNIFER QUINTERO Primary Care Unavailable Basali, Mackenzie Attending Unavailable Basali, Ayman Referring Unavailable JENNIFER QUINTERO Primary Care Unavailable JENNIFER QUINTERO Primary Care Unavailable Leilani Tanner Attending Unavailable Avery, Ulises Attending Unavailable DOCTOR, OUT OF TOWN Referring Unavailable Roof, Julian H Attending Unavailable JENNIFER QUINTERO Primary Care Unavailable Sanford Pelletier Attending Unavailable Basali, Ayman Attending Unavailable Basali, Ayman Referring Unavailable JENNIFER QUINTERO Primary Care Unavailable Tereletsky, Rigo Admitting Unavailable Tereletsky, Rigo Attending Unavailable Elayne Vickers Primary Care Unavailable Tereletsky, Rigo Admitting Unavailable Tereletskarl, Rigo Attending Unavailable Elayne Vickers Primary Care Unavailable Tereletsky, Rigo Consulting Unavailable Tereletsky, Rigo Admitting Unavailable Tereletsky, Rigo Attending Unavailable Jennifer, Elayne Primary Care Unavailable Tereletsky, Rigo Consulting Unavailable Pita, Enrique Admitting Unavailable Pita Enrique Attending Unavailable iPta, Enrique Referring Unavailable Elayne Vickers Primary Care Unavailable Oleghe, Efewongbe Attending Unavailable Elayne Vickers Referring Unavailable Rigo Solorio HEAVY MACHINERY OPERATOR-C Attending Unavailable Elayne Vickers Referring Unavailable Genia Corrigan Attending Unavailable Elayne Vickers Referring Unavailable Julian Stallings H Attending Unavailable DOCTOR, OUT OF TOWN Referring Unavailable JENNIFER QUINTERO Primary Care Unavailable Rhea Antunez Attending Unavailable DOCTOR, OUT OF TOWN Referring Unavailable JENNIFER QUINTERO Primary Care Unavailable PROBLEMS PROBLEMS DATE TYPE CONDITION / CODE ATTENDING STATUS SOURCE 04/12/2018 Unknown F11.20 - Opioid Basali, Ayman Active [place] dependence, Community uncomplicated / Hospital F11.20(ICD-10) Repository 03/18/2018 Unknown N17.9 - Acute kidney Oleghe, Active [place] failure, unspecified Efewongbe Community / N17.9(ICD-10) Hospital Repository 03/05/2018 Unknown I48.91 - Unspecified Corrigan, Active [place] atrial fibrillation / Genia [facility] I48.91(ICD-10) Hospital Repository 02/23/2018 Unknown I10 - Essential Rigo Solorio Active [place] (primary) HEAVY MACHINERY OPERATOR-C Community hypertension / Hospital I10(ICD-10) Repository 02/23/2018 Unknown Z23 - Encounter for Riog Solorio Active [place] immunization / HEAVY MACHINERY OPERATOR-C Community Z23(ICD-10) Hospital Repository 02/23/2018 Unknown E78.5 - SolorioRigo zamarripa Active [place] Hyperlipidemia, HEAVY MACHINERY OPERATOR-C Community unspecified / Hospital E78.5(ICD-10) Repository 02/23/2018 Unknown Z12.31 - Encounter SolorioRigo zamarripa Active [place] for screening HEAVY MACHINERY OPERATOR-C [facility] mammogram for Hospital malignant neoplasm of Repository breast / Z12.31(ICD-10) 02/23/2018 Unknown Z12.11 - Encounter SolorioRigo zamarripa Active [place] for screening for HEAVY MACHINERY OPERATOR-C [facility] malignant neoplasm of Hospital colon / Repository Z12.11(ICD-10) 11/25/2017 Unknown Z96.641 - Presence of PitaEnrique ramos Active [place] right artificial hip Community joint / Hospital Z96.641(ICD-10) Repository 10/31/2017 Unknown M54.16 - Tereletsky, Active [place] Radiculopathy, lumbar [facility] region / Hospital M54.16(ICD-10) Repository 10/31/2017 Unknown 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, 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 / Hospital M87.051(ICD-10) Repository 09/17/2017 Unknown I21.4 - Non-ST Avery, Alexandria Active [place] elevation (NSTEMI) [facility] myocardial infarction Hospital / I21.4(ICD-10) Repository 09/17/2017 Unknown E78.2 - Mixed Avery, [place] Active [place] hyperlipidemia / Community E78.2(ICD-10) Hospital Repository 11/11/2017 Unknown M25.551 - Pain in Ronal Nascimento Active [place] right hip / Community M25.551(ICD-10) Hospital Repository 07/21/2017 Unknown I25.10 - Avery, Alexandria Active [place] Atherosclerotic heart Community disease of [facility] coronary artery Repository without angina pectoris / I25.10(ICD-10) 07/21/2017 Unknown Z01.810 - Encounter Avery, Ulises Active [place] for preprocedural [facility] examination / Repository Z01.810(ICD-10) 07/21/2017 Unknown Z72.0 - Tobacco use / Avery, Alexandria Active [place] Z72.0(ICD-10) [facility] Repository 07/21/2017 Unknown M87.052 - Idiopathic White, Azul Active [place] aseptic necrosis of [facility] left femur / Hospital M87.052(ICD-10) Repository 05/06/2017 Unknown M79.604 - Pain in Rhea Antunez Active [place] right leg / [facility] M79.604(ICD-10) Hospital Repository 05/06/2017 Unknown M54.5 - Low back pain Rhea Antunez Active [place] / M54.5(ICD-10) [facility] Repository PROCEDURES PROCEDURES No Procedure Records FoundRESULTS RESULTS URINE DRUG SCREEN Collected: 04/12/2018 Status: F Source: [place] (VISTA) 1:01 PM [facility] REPOSITORY Order Comment: List of Drugs Taken or Suspected? UNK TYPE CODE TESTS RESULT OUT OF RANGE REFERENCE UNITS LAB L505.0075 TO BE Normal CONFIRMED Result Comment: CONFIRMATORY TESTING FOR ALL POSITIVE URINE DRUG SCREEN RESULTS WILL ONLY BE SENT OUT UPON PHYSICIAN ORDER. VISTA Urine Drug Screen methods provide only preliminary analytical test results. A more specific alternate chemical method must be used in order to obtain a confirmed analytical result. Gas chromatography/mass spectrometery (GC/MS) is the preferred confirmatory method. Clinical consideration and professional judgement should be applied to any drug of abuse test result, particularly when preliminary positive results are used. URINE TCA TESTING MUST BE ORDERED SEPARATELY. USE TEST MNEMONIC: [facility] LAB L505.5005 VISTA UDS PH 5 Normal LAB L505.5015 <1000 ng/mL AMPHETAMINES Normal NEGATIVE LAB L505.5025 < 200 ng/mL BARBITIURATES Normal NEGATIVE LAB L505.5035 < 200 ng/mL BENZODIAZIPINE Normal NEGATIVE LAB L505.5045 < 300 ng/mL COCAINE Normal NEGATIVE LAB L505.5055 < 500 ng/mL ECSTACY Normal NEGATIVE LAB L505.5065 < 300 ng/mL METHADONE Normal NEGATIVE LAB L505.5075 < 300 ng/mL OPIATES Normal NEGATIVE LAB L505.5085 < 25 ng/mL PCP Normal NEGATIVE LAB L505.5095 < 50 ng/mL THC Normal NEGATIVE Performed By: #### L505.5000 #### [facility] [address] [place], [address] MISCELLANEOUS LAB Collected: 04/12/2018 Status: F Source: [place] PROCEDURE 1:01 PM [facility] REPOSITORY Order Comment: Test(s) Ordered: [id number] URINE DRUG SCREEN TYPE CODE TESTS RESULT OUT OF RANGE REFERENCE UNITS LAB L801.1541 Normal [facility] TEST Result Comment: [id number] 6+OXYCODONE-BUND (ng/mL) DRUG RESULT SCREEN CUTOFF ____ Amphetamines,Urine Negative ng/mL 1000 Amphetamine test includes Amphetamine and Methamphetamine. Barbiturates Negative ng/mL 200 Benzodiazepines Negative ng/mL 200 Cannabinoid Negative ng/mL 20 Cocaine (Metab) Negative ng/mL 300 Opiates Negative ng/mL 300 Opiates test includes Codeine, Morphine, Hydromorphone, Hydrocodone. Oxycodone/Oxymorphone,Urine Negative ng/mL 300 Test includes Oxydodone and Oxymorphone. TESTING PERFORMED AT [facility]. ORIGINAL REPORT ON FILE IN LAB CONTAINS ADDITIONAL TEST SITE INFORMATION. Performed By: #### L801.1541 #### [facility] [address] [place], [address] DISCHARGE SUMMARY Observed: 04/04/2018 Status: F Source: [place] 12:42 PM [facility] REPOSITORY [facility] Medical Records Department [address] [place] [address] Discharge Summary 04/04/18 1231 MR#: [id number] Acct: [id number] Name: OJHANA YBARRA Rep #: [id number] : 1960 57 From: Elayne Santamaria MD PCP: Ana Oates MD Status: DIS ANGÉLICA Y Location: [place] [address] Discharge Date and Diagnosis Date of Admission: 03/18/18 Date of Discharge: 03/19/18 - Primary Discharge Diagnosis Hypotension - Secondary Discharge Diagnosis Chronic Problems (Last Reviewed 03/26/18 @ 15:23 by Soila Marsh) Generalized anxiety disorder with panic attacks (Chronic) Vision problems (Chronic) Osteoarthritis (Chronic) Lump of breast, left (Chronic) Atherosclerosis of [place] coronary artery of [place] heart without angina pectoris (Chronic) Tobacco abuse (Chronic) H/O laminectomy (Chronic) Hypertension (Chronic) Hyperlipidemia (Chronic) Low back pain (Chronic) Hospital Course and Treatment Operations: None Summary of Care Provided: The patient is a 57 year old F admitted with low blood pressure. 1. Hypotension : Patient was placed on a monitored bed for continuous telemetry monitoring. Patient hypotension was attributed to her medications. Doses adjusted on discharge. Patient was discharged home a day after her admission in stable condition. 2. Coronary artery- with history of RCA angioplasty and stenting on 11/18/2016 3. Essential hypertension blood pressure medications adjusted as discussed above 4. Dyslipidemia-patient is on statin therapy, continued at home dose 5. Chronic back pain 6. Depression with anxiety - Physical Exam HEENT: Atraumatic Neck: No JVD Cardiovascular: Regular rate, Regular Rhythm Abdomen: Non-Distended Extremities: No cyanosis Psych/Mental Status: Normal Affect Vital Signs Temp Pulse Resp BP Pulse Ox 97.8 F 85 18 119/66 96 03/19/18 09:35 03/19/18 10:57 03/19/18 09:35 03/19/18 09:35 03/19/18 09:35 Oxygen Delivery Method Room Air Weight: 91.4 kg Body Mass Index (BMI) 33.5 Finger Stick Blood Glucose 168 Discharge Diet: No Restrictions Discharge Activity: May not drive while taking narcotic pain medications. Home Medications: Medications to take at Discharge DiphenhydrAMINE [Benadryl] 50 mg PO QHS 01/15/17 Aspirin E.C. [Ecotrin] 81 mg PO DAILY@0800 10/29/17 Metoprolol Tartrate [Lopressor (beta kusum)] 25 mg PO BID 10/29/17 Clopidogrel Bisulfate [Plavix] 75 mg PO DAILY 11/13/17 Rosuvastatin Calcium [Crestor] 40 mg PO DAILY 11/13/17 gabapentin 800 mg tablet 800 mg PO 4X/DAY tab 02/04/18 hydrocodone 7.5 mg-acetaminophen 325 mg tablet 1 tab PO Q8H tab 02/04/18 trazodone 100 mg tablet 200 mg PO QHS #60 tab 02/04/18 Acetaminophen [Tylenol] 1,000 mg PO Q8 PRN 03/18/18 Tizanidine HCl 4 mg PO TID 03/18/18 lorazepam 0.5 mg tablet 0.5 mg PO DAILY PRN #20 tab 03/24/18 buspirone 10 mg tablet 20 mg PO TID tab 03/26/18 lisinopril 2.5 mg tablet 5 mg PO DAILY tab 03/26/18 Primary Care Physician: Ana Oates MD [Primary Care Provider] - 5-7 Days Patient Instructions: ED Hypotension Orthostatic Disposition: Home Minutes spent on discharge:: 35 Patient Condition:: Good Medical Necessity - Tobacco Use Smoking Status: Current every day smoker Tobacco Use: Cigarettes Meaningful Use Info Meaningful Use Diagnoses (Choose all that apply): None applicable Code Visit OBSV E AND M: 74467 Observation care discharge 04/04/18 1242 <Electronically signed by Elayne Santamaria MD> Date Elayne Santamaria MD Cosigner Signature (if applicable): Date CC: Elayne Santamaria MD; Ana Oates MD Signed INTERNAL MEDICINE Observed: 03/31/2018 Status: F Source: [place] OFFICE VISIT 5:02 PM [facility] [place] [address] [place] [address] OFFICE VISIT Date of Service: 03/26/18 MR#: [id number] Acct: [id number] Name: JOHANA YBARRA Rep #: [id number] : 1960 Provider: Rigo Solorio NP Age/Sex: 57/F Location[facility] Status: Signed Intake Vital Signs03/26/18 Body Mass Index (BMI) 33.5 03/26/18 Height 5 ft 5 in 03/26/18 Weight: 195 lb 03/26/18 Body Mass Index (BMI) 32.4 03/26/18 Blood Pressure 160/91 H 03/26/18 Blood Pressure Location Lt brachial Intake Visit Reasons: FU HOSP Chief Complaint: FU Hosp Allergies adhesive Adverse Reaction (Verified 03/26/18 15:22) Other baclofen Adverse Reaction (Verified 03/26/18 15:22) LETHARGY Medications DiphenhydrAMINE [Benadryl] 50 mg PO QHS 01/15/17 [History Confirmed 03/26/18] Aspirin E.C. [Ecotrin] 81 mg PO DAILY@0800 10/29/17 [History Confirmed 03/26/18] Metoprolol Tartrate [Lopressor (beta kusum)] 25 mg PO BID 10/29/17 [History Confirmed 03/26/18] Clopidogrel Bisulfate [Plavix] 75 mg PO DAILY 11/13/17 [History Confirmed 03/26/18] Rosuvastatin Calcium [Crestor] 40 mg PO DAILY 11/13/17 [History Confirmed 03/26/18] gabapentin 800 mg tablet 800 mg PO 4X/DAY tab 02/04/18 [History Confirmed 03/26/18] hydrocodone 7.5 mg-acetaminophen 325 mg tablet 1 tab PO Q8H tab 02/04/18 [History Confirmed 03/26/18] trazodone 100 mg tablet 200 mg PO QHS #60 tab 02/04/18 [Rx Confirmed 03/26/18] Acetaminophen [Tylenol] 1,000 mg PO Q8 PRN 03/18/18 [History Confirmed 03/26/18] Tizanidine HCl 4 mg PO TID 03/18/18 [History Confirmed 03/26/18] lorazepam 0.5 mg tablet 0.5 mg PO DAILY PRN #20 tab 03/24/18 [Rx Confirmed 03/26/18] buspirone 10 mg tablet 20 mg PO TID tab 03/26/18 [History Confirmed 03/26/18] lisinopril 2.5 mg tablet 5 mg PO DAILY tab 03/26/18 [History] PFSH Medical History Fracture tibia/fibula (Resolved) Myocardial infarction (Resolved) Vision problems (Chronic) Pneumonia (Resolved) Osteoarthritis (Chronic) Lump of breast, left (Chronic) UTI (urinary tract infection) (Resolved) Atrial fibrillation (Resolved) Atherosclerosis of [place] coronary artery of [place] heart without angina pectoris (Chronic) Tobacco abuse (Chronic) Syncope and collapse (Resolved) LOVE (acute kidney injury) (Resolved) Hypertension (Chronic) Hyperlipidemia (Chronic) Low back pain (Chronic) Surgical History H/O laminectomy (Chronic) History of splenectomy (Acute) History of total right hip replacement (Acute) History of left heart catheterization (Chronic) Hx of bone graft (Chronic 2014) S/P ORIF (open reduction internal fixation) fracture (Chronic) Family History Father Hypertension Bowel disease Heart disease Kidney disease Mother Hypertension Arthritis Bowel disease Colon cancer Heart disease High cholesterol Grandmother Arthritis Breast cancer Brain tumor Lung cancer Grandfather Myocardial infarction Social History Smoking Status: Current every day smoker alcohol intake: current alcohol intake frequency: a few times a week Alcohol type: hard liquor substance use type: does not use caffeine: Yes Type: coffee, carbonated beverages what type of physical activity do you participate in: other details: Physical Therapy frequency: 3-4 times per week seatbelt use: always do you feel safe at home: Yes HPI HPI Chief Complaint: FU Hosp Details: JOHANA YBARRA, is a 57 F who presents to the office today for a hospital follow-up of hypotension. She has a past medical history as listed above. Patient presented by mary to the emergency department on 03/18/2018 with symptomatic hypotension. She was further admitted to PCU at [facility] for observation and her oral antihypertensive medications were held and patient was given fluids. Symptomatically she improved along with her blood pressures. She was discharged home on 03/19/2018 where her lisinopril was cut down to 2.5 mg daily and her Lasix was discontinued as well. Since being discharged, patient states that her blood pressures have been elevated at 160s over 90s. She did note an increase in lower extremity edema so she restarted her Lasix 20 mg daily. She denies any symptoms of hypotension at this time. She does state that her pulse often remains elevated in the low 100s. She does note that her anxiety is also not completely controlled on the BuSpar and refuses to follow-up with psychiatry. She denies any acute concerns at this time. The patient otherwise denies any fever, chills, nausea, vomiting, shortness of breath, chest pain or pressure, palpitations, orthopnea, lower extremity edema, syncope or presyncopal episodes. ROS Const Constitutional: No chills, fatigue, fever(s), frequent falls, malaise, weakness, sleep problems or change in appetite Eyes Eyes: No blurry vision, change in vision, double vision, discharge or visual disturbances ENT ENT: No abnormal hearing, ear pain, ear pressure, tinnitus or dizziness/vertigo Resp Respiratory: No cough, shortness of breath or wheezing Cardio Cardiology: No chest pain at rest, chest pain with exertion, shortness of breath, dyspnea on exertion, generalized swelling, irregular heart rhythm, lightheadedness, orthopnea, fast heart rate or palpitations Gastro GI: No abdominal pain, change in bowel habits, constipation, diarrhea, nausea/dyspepsia or vomiting Genitourinary-Female: No difficulty urinating, burning urination, painful urination, urinary incontinence, urinary frequency, urinary urgency, urinary hesitancy, urinary retention, Frequent nighttime urination/ nocturia, sexual problems, genital lesions, abnormal vaginal bleeding, pelvic pain, vaginal dryness, vaginal odor or Vaginal Itching Musc Musculoskeletal: No joint pain, back pain, joint swelling, limited range of motion, numbness, tingling or muscle weakness Skin Skin: No change in skin color, itching, rash or wounds Breast Breast: No breast lump or breast pain Neuro Neurology: No frequent falls, weakness, visual disturbances, abnormal hearing, numbness, tingling, unsteady gait/balance, dizziness, loss of vision or memory loss Psych Psychiatric: No change in appetite, No memory loss, No anxiety, No depression, No Thoughts of harming yourself/Others Endo Endocrine: No fatigue, heat intolerance, increased thirst/drinking, increased hunger or increased urination Aller/Imm Allergy/Immunologic: No wheezing, itchy eyes or seasonal allergy symptoms Simon/Lymp Hematologic/Lymphatic: No easy bleeding, easy bruising or enlarged lymph nodes Exam Const General: cooperative, comfortable, no acute distress Nutritional Appearance: well nourished, obese Orientation: alert, oriented x3 Limitations: mental status not altered Resp Effort AND Inspection: normal respiratory effort, able to speak in complete sentences, normal respiratory pattern, symmetric chest movement, no audible wheezes, no cough Auscultation: Bilateral: Clear to Auscultation Cardio Palpation: normal PMI Rate: regular rate Heart Sounds: S1 normal, S2 normal, normal S1 and S2, no click, no gallops, no murmurs, no rubs Musc Musculoskeletal: No joint tenderness, decreased ROM or muscle weakness Skin General: no rashes or lesions noted, elasticity normal, turgor normal Lesions: no lesions Rashes: no rashes Neuro General: alert, awake, oriented x3, CN's II-XI intact bilaterally Speech: speech normal Gait: normal gait Motor: muscle tone normal throughout Extrem General: normal to inspection, normal gait, no edema, no pedal edema Psych Appearance: grossly normal Mental Status: mental status grossly normal Affect: normal affect Attitude: cooperative Thought Process: normal Assessment AND Plan 1. Essential hypertension I10 Plan Recent hospital visit as described above. Patient no longer hypotensive and she restarted her Lasix for her lower extremity edema. She is averaging 160s systolic over 90s diastolic, will place patient back on 5 mg lisinopril and instructed to call our office in a couple days and if still elevated will increase her to 10 mg of lisinopril. Will recheck a BMP in 2 weeks. Given patient's slight tachycardia and pulse routinely running in the low 100s, will check a TSH and T4 as well. Discussed red flag symptoms requiring urgent medical attention. Patient verbalized understanding. Patient to follow-up in 2 weeks or sooner if needed. Orders Orders: 2. Generalized anxiety disorder with panic attacks F41.1; F41.0 Plan Patient continues to have difficulty with her anxiety, will increase her to buspirone 20 mg 3 times a day. Discussed that her benzodiazepine medication should only be taken as needed for panic attacks. Patient verbalized understanding. Patient continues to refuse psychiatry consult at this time. Plan Detail Other Orders Orders: Coding Level of Care Code Off vis,est,level 3 Diagnoses Essential hypertension I10 Hypertension type: essential hypertension Generalized anxiety disorder with panic attacks F41.1; F41.0 03/31/18 170 <Electronically signed by Rigo PRETTY> Date Rigo PRETTY Cosigner Signature: Date (if applicable) CC: INTERNAL MEDICINE Observed: 03/22/2018 Status: F Source: [facility] OFFICE VISIT 8:30 AM [facility] [address] [place] [address] [address] [place] [address] OFFICE VISIT Date of Service: 03/18/18 MR#: [id number] Acct: [id number] Name: JOHANA YBARRA Rep #: [id number] : 1960 Provider: Ana Oates MD Age/Sex: 57/F Location: [facility] Status: Signed Intake Vital Signs03/18/18 Body Mass Index (BMI) 32.2 03/18/18 Height 5 ft 5 in 03/18/18 Weight: 201 lb 03/18/18 Body Mass Index (BMI) 33.4 03/18/18 Blood Pressure 81/49 L 03/18/18 Blood Pressure Location Lt brachial Intake Visit Reasons: 6 wk FU Chief Complaint: 6 wk Follow up - Seen ER 1 week ago - Falls/Dehydration Is patient in pain?: Yes (Back) Pain scale (1-10): 8 Allergies adhesive Adverse Reaction (Verified 03/18/18 15:25) Other baclofen Adverse Reaction (Verified 03/18/18 15:25) LETHARGY Medications DiphenhydrAMINE [Benadryl] 50 mg PO QHS 01/15/17 [History Confirmed 03/18/18] lisinopril 20 mg tablet 20 mg PO DAILY #90 tab 09/17/17 [Rx Confirmed 03/18/18] Aspirin E.C. [Ecotrin] 81 mg PO DAILY@0800 10/29/17 [History Confirmed 03/18/18] Metoprolol Tartrate [Lopressor (beta kusmu)] 25 mg PO BID 10/29/17 [History Confirmed 03/18/18] Clopidogrel Bisulfate [Plavix] 75 mg PO DAILY 11/13/17 [History Confirmed 03/18/18] Furosemide [Lasix] 20 mg PO DAILY 11/13/17 [History Confirmed 03/18/18] Rosuvastatin Calcium [Crestor] 40 mg PO DAILY 11/13/17 [History Confirmed 03/18/18] Tizanidine HCl [Zanaflex] 4 mg PO Q8H PRN PRN 11/13/17 [History Confirmed 03/18/18] Acetaminophen [Tylenol] 1,000 mg PO Q8 #90 tab 11/25/17 [Rx Confirmed 03/18/18] buspirone 10 mg tablet 10 mg PO BID #90 tab 02/04/18 [Rx Confirmed 03/18/18] gabapentin 800 mg tablet 800 mg PO .qid tab 02/04/18 [History Confirmed 03/18/18] hydrocodone 7.5 mg-acetaminophen 325 mg tablet 1 tab PO Q8H tab 02/04/18 [History Confirmed 03/18/18] trazodone 100 mg tablet 200 mg PO QHS #60 tab 02/04/18 [Rx Confirmed 03/18/18] lorazepam 0.5 mg tablet 0.5 mg PO QD-BID PRN #30 tab 02/23/18 [Rx Confirmed 03/18/18] PFSH Medical History Fracture tibia/fibula (Resolved) Myocardial infarction (Resolved) Vision problems (Chronic) Pneumonia (Resolved) Osteoarthritis (Chronic) Lump of breast, left (Chronic) UTI (urinary tract infection) (Resolved) Atrial fibrillation (Chronic) Atherosclerosis of [place] coronary artery of [place] heart without angina pectoris (Chronic) Tobacco abuse (Chronic) Syncope and collapse (Resolved) LOVE (acute kidney injury) (Acute) Hypertension (Chronic) Hyperlipidemia (Chronic) Low back pain (Chronic) Surgical History H/O laminectomy (Chronic) History of splenectomy (Acute) History of total right hip replacement (Acute) History of left heart catheterization (Chronic) Hx of bone graft (Chronic 2014) S/P ORIF (open reduction internal fixation) fracture (Chronic) Family History Father Hypertension Bowel disease Heart disease Kidney disease Mother Hypertension Arthritis Bowel disease Colon cancer Heart disease High cholesterol Grandmother Arthritis Breast cancer Brain tumor Lung cancer Grandfather Myocardial infarction Social History Smoking Status: Current every day smoker alcohol intake: current alcohol intake frequency: a few times a week Alcohol type: hard liquor substance use type: does not use caffeine: Yes Type: coffee, carbonated beverages what type of physical activity do you participate in: other details: Physical Therapy frequency: 3-4 times per week seatbelt use: always do you feel safe at home: Yes HPI HPI Chief Complaint: 6 wk Follow up - Seen ER 1 week ago - Falls/Dehydration Details: JOHANA YBARRA, is a 57yo F who presents to the office today for follow-up of recent hospital admission. She was seen in the ER about a week ago due to frequent falls and was noted to be in severe AK I. She was rehydrated however left AMA due to a court hearing. He states that about [address] she was told that she became incoherent, the squad was called and she was taken to [facility] where she was fifth 10 hours and treated for dehydration with AK I.. Patient, her creatinine came down to 1.5 after rehydration. She states that she had felt well since Thursday and has tried to increase her fluid intake. She states that she does not like tap water and ran out of bottle water which resulted in her drinking less. Blood pressure in office initially at 81/49 mmHg. She reports lightheadedness on standing from sitting position. Repeat blood pressure of 70/40mmHg. ROS Const Constitutional: Positive for frequent falls; no chills, fatigue, fever(s), malaise, weakness, sleep problems or change in appetite Eyes Eyes: No blurry vision, change in vision, double vision, discharge or visual disturbances ENT ENT: No abnormal hearing, ear pain, ear pressure, tinnitus or dizziness/vertigo Resp Respiratory: No cough, shortness of breath or wheezing Cardio Cardiology: No chest pain at rest, chest pain with exertion, shortness of breath, dyspnea on exertion, generalized swelling, irregular heart rhythm, lightheadedness, orthopnea, fast heart rate or palpitations Gastro GI: No abdominal pain, change in bowel habits, constipation, diarrhea, nausea/dyspepsia or vomiting Genitourinary-Female: No difficulty urinating, burning urination, painful urination, urinary incontinence, urinary frequency, urinary urgency, urinary hesitancy, urinary retention, Frequent nighttime urination/ nocturia, sexual problems, genital lesions, abnormal vaginal bleeding, pelvic pain, vaginal dryness, vaginal odor or Vaginal Itching Musc Musculoskeletal: No joint pain, joint swelling, limited range of motion, numbness or tingling Skin Skin: No change in skin color, itching, rash or wounds Breast Breast: No breast lump or breast pain Neuro Neurology: Positive for frequent falls, unsteady gait/balance and dizziness; no weakness, visual disturbances, abnormal hearing, numbness, tingling, loss of vision or memory loss Psych Psychiatric: No change in appetite, No memory loss, No anxiety, No depression, No Thoughts of harming yourself/Others Endo Endocrine: No fatigue, heat intolerance, increased thirst/drinking, increased hunger or increased urination Aller/Imm Allergy/Immunologic: No wheezing, itchy eyes or seasonal allergy symptoms Simon/Lymp Hematologic/Lymphatic: No easy bleeding, easy bruising or enlarged lymph nodes Exam Const General: cooperative, no acute distress Orientation: alert, awake, oriented x3 [facility] Head: atraumatic, normocephalic, normal to inspection Ears: hearing grossly normal bilaterally Resp Effort AND Inspection: normal respiratory effort, able to speak in complete sentences Auscultation: Bilateral: Clear to Auscultation Cardio Rate: regular rate Rhythm: regular rhythm Heart Sounds: S1 normal, S2 normal GI Palpation: soft, no hepatosplenomegaly Neuro General: alert, awake, oriented x3, moves all extremities, CN's II-XI intact bilaterally Assessment AND Plan 1. Hypotension, unspecified hypotension type I95.9 Plan Initial blood pressure in office of 81/49 mmHg. Repeat done manually of 70/40 mmHg. She reports lightheadedness when standing from sitting position. Has had 2 ER visits in the past week where per patient she was rehydrated. Left AMA on from [facility]. She has also continued to take her antihypertensives daily. Squad called and she will be taken to the emergency room. Hold off antihypertensives. Okay to take metoprolol with a systolic blood pressure of over 110 and heart rate of over 60bpm. Monitor blood pressure closely and call the office if any concerns. Follow-up in 2 weeks. 2. Essential hypertension I10 Plan Plan as above. 3. LOVE (acute kidney injury) N17.9 Plan Per patient, this was resolved at [facility] after she was rehydrated. She states that on discharge, her creatinine was down to 1.5. Repeat BMP ordered. However, I believe that she would have this done at the emergency room. Medication management as above. Orders Orders: 4. Generalized anxiety disorder with panic attacks F41.1; F41.0 Plan Some improvement on buspirone. Increase to 10 mg 3 times daily. Follow-up at next visit. This note was generated with [employer] dictation software. It may contain incorrect words, spelling, and punctuation that were not noted in checking the note before signing. Plan Detail Other Medications On Hold: Coding Level of Care Code Off vis,est,level 4 Diagnoses Hypotension, unspecified hypotension type I95.9 Hypotension type: unspecified hypotension type Essential hypertension I10 Hypertension type: essential hypertension LOVE (acute kidney injury) N17.9 Generalized anxiety disorder with panic attacks F41.1; F41.0 03/22/18 0830 <Electronically signed by Ana Oates MD> Date Ana Oates MD Cosigner Signature: Date (if applicable) CC: DISCHARGE INSTRUCTION Observed: 03/19/2018 Status: F Source: [facility] 11:53 AM [facility] REPOSITORY [facility] Medical Records Department [address] [place] [address] Instructions for Home/Discharge Instructions 03/19/18 1152 MR#: [id number] Acct: [id number] Name: JOHANA YBARRA Rep #: [id number] : 1960 57 From: Elayne Santamaria MD PCP: Ana Oates MD Status: ADM ANGÉLICA You will use the following diet at home:: Cardiac Your food should be the consistency of: Regular Discharge Activity: May not drive while taking narcotic pain medications. Instructions: ED Hypotension Orthostatic Allergies/Adverse Reactions: Allergies adhesive Adverse Reaction (Verified 03/18/18 15:25) Other baclofen Adverse Reaction (Verified 03/18/18 15:25) LETHARGY Medications to take at Discharge DiphenhydrAMINE [Benadryl] 50 mg PO QHS 01/15/17 Aspirin E.C. [Ecotrin] 81 mg PO DAILY@0800 10/29/17 Metoprolol Tartrate [Lopressor (beta kusum)] 25 mg PO BID 10/29/17 Clopidogrel Bisulfate [Plavix] 75 mg PO DAILY 11/13/17 Rosuvastatin Calcium [Crestor] 40 mg PO DAILY 11/13/17 gabapentin 800 mg tablet 800 mg PO 4X/DAY tab 02/04/18 hydrocodone 7.5 mg-acetaminophen 325 mg tablet 1 tab PO Q8H tab 02/04/18 trazodone 100 mg tablet 200 mg PO QHS #60 tab 02/04/18 lorazepam 0.5 mg tablet 0.5 mg PO QD-BID PRN #30 tab 02/23/18 Acetaminophen [Tylenol] 1,000 mg PO Q8 PRN 03/18/18 Buspirone HCl 10 mg PO DAILY@1200 03/18/18 Buspirone HCl 20 mg PO BID 03/18/18 Tizanidine HCl 4 mg PO TID 03/18/18 Lisinopril 2.5 mg PO DAILY #30 tablet 03/19/18 The following prescriptions were given: Lisinopril 2.5 mg PO DAILY #30 tablet Primary Care Physician: Ana Oates MD [Primary Care Provider] - 5-7 Days Test Results: Test results from this visit will be discussed in further detail at your follow-up appointment, if applicable. Proposed Discharge Date: 03/19/18 03/19/18 6119 <Electronically signed by Elayne Santamaria MD> Date Elayne Santamaria MD CC: Ana Oates MD Signed BASIC METABOLIC Collected: 03/19/2018 Status: F Source: [facility] PROFILE (BMP) 6:44 AM [facility] REPOSITORY TYPE CODE TESTS RESULT OUT OF RANGE REFERENCE UNITS LAB L501.0100 74-106 mg/dL High GLU 116 Result Comment: Fasting Glucose result from 100 to 125 mg/dL suggests IMPAIRED HOMEOSTASIS per A.D.A. criteria. Please note revised GLUCOSE reference range effective 2017. LAB L501.1000 7-18 mg/dL Normal BUN 16 LAB L501.1100 0.55-1.02 mg/dL Normal CREAT,SERUM 0.70 Result Comment: The validity of the calculated GFR AND GFRAA in patients over 70 years has not been determined. Clinical correlation is essential. LAB L501.1110 >60 mL/min Normal EST GFR 91 Result Comment: Non- GFR Calc LAB L501.1115 >60 mL/min Normal EST GFR - AA 110 Result Comment: GFR Calc LAB L501.1255 ml/min Normal Estimated CRCL 77.49 LAB L501.1300 10-20 RATIO High BUN/CRE 22.8 LAB L501.2200 8.5-10 mg/dL Low .1 CA 8.2 LAB L501.5300 136-14 mmol/L Normal 5 NA 143 LAB L501.5600 3.5-5. mmol/L Normal 1 K 4.8 LAB L501.5900 98-107 mmol/L High CL 110 LAB L501.6100 21.0-3 mmol/L Normal 2.0 CO2 27.0 LAB L501.6200 5-15 Normal GAP 6 Performed By: #### L500.2500 #### [facility] [address] [place], [address] HISTORY AND PHYSICAL Observed: 03/18/2018 Status: F Source: [facility] EXAM 7:34 PM [facility] REPOSITORY [facility] Medical Records Department [address] [place] [address] History and Physical 03/18/181921 MR#: [id number] Acct: [id number] Name: JOHANA YBARRA Rep #: [id number] : 1960 57 From: Rigo Auguste DO PCP: Ana Oates MD Status: REG ER Y Location: ED Problem List (1) Hypotension Status: Acute Qualifiers: Hypotension type: hypotension due to drug Qualified Code(s): I95.2 - Hypotension due to drugs History of Present Illness Date of Admission: 03/18/18 Chief Complaint: Hypotension The patient is a 57 year old F seen in the emergency room at [facility] after she was sent to the ER for evaluation from her physician's office due to dizziness and low blood pressure obtain in her physician's office. Patient denies any chest pain, shortness of breath, cough, fever, or chills. Evaluation in the emergency room here initially revealed her blood pressure to be 101/72, subsequently her blood pressure was noted to be 75/48 and then 85/54. Patient's EKG showed a sinus rhythm at 67, no acute ischemic changes were noted. Labs were obtained on the patient, CBC was remarkable for hemoglobin of 11.2, patient's chemistry showed an elevated creatinine at 1.08, patient's troponin was normal. Patient was given approximately 500 cc of normal saline but despite this, the patient's blood pressure remained in the 80s systolic. ER physician felt that the patient's hypotension was due to her blood pressure medications, patient will be placed and observation status on PCU for hypotension and her blood pressure medications will be held. She will be given IV fluids and reevaluated in the morning. Past Medical History Past Medical History (Chronic Problems): Chronic Problems (Last Reviewed 03/18/18 @ 15:27 by Soila Marsh) Generalized anxiety disorder with panic attacks (Chronic) Vision problems (Chronic) Osteoarthritis (Chronic) Lump of breast, left (Chronic) Atherosclerosis of [place] coronary artery of [place] heart without angina pectoris (Chronic) Tobacco abuse (Chronic) H/O laminectomy (Chronic) Hypertension (Chronic) Hyperlipidemia (Chronic) Low back pain (Chronic) Medical History: Medical History (Last Reviewed 03/18/18 @ 15:27 by Soila Marsh) Fracture tibia/fibula (Resolved) S82.209A, S82.409A Left 11/29/2014 Myocardial infarction (Resolved) I21.9 10/2016 Vision problems (Chronic) H54.7 Pneumonia (Resolved) J18.9 Osteoarthritis (Chronic) M19.90 Lump of breast, left (Chronic) N63.20 UTI (urinary tract infection) (Resolved) N39.0 Atrial fibrillation (Resolved) I48.91 Atherosclerosis of [place] coronary artery of [place] heart without angina pectoris (Chronic) I25.10 Tobacco abuse (Chronic) Z72.0 Syncope and collapse (Resolved) R55 LOVE (acute kidney injury) (Resolved) N17.9 Hypertension (Chronic) I10 Hyperlipidemia (Chronic) E78.5 Low back pain (Chronic) M54.5 Allergies adhesive Adverse Reaction (Verified 03/18/18 15:25) Other baclofen Adverse Reaction (Verified 03/18/18 15:25) LETHARGY Home Medications: Ambulatory Orders Medication Instructions Recorded DiphenhydrAMINE [Benadryl] 50 mg PO QHS 01/15/17 Surgical History: Surgical History (Last Reviewed 03/18/18 @ 15:27 by Soila Marsh) H/O laminectomy (Chronic) Z98.890 History of splenectomy Z90.81 2004 History of total right hip replacement Z96.641 11/24/17 History of left heart catheterization Z98.890 11/17/2016 PRABHAKAR mid RCA and prox LAD Hx of bone graft Onset Date: 2014 Z98.890 S/P ORIF (open reduction internal fixation) fracture Z96.7, Z87.81 tib/fib Surgical History: herniorrhaphy, hysterectomy, - - laminectomy, left tib-fib fracture with open reduction secondary to trauma, coronary artery stents 2, left breast biopsy Psychiatric History: No pertinent psych hx SUSTAIN ENGINEER History: No pertinent SUSTAIN ENGINEER history Lives: With Family Smoking Status: Current every day smoker Tobacco Use: Cigarettes Alcohol: None Drugs: None - *Family History Maternal Family History: Family History (Last Reviewed 03/18/18 @ 15:27 by Soila Marsh) Father Hypertension Bowel disease Heart disease Kidney disease Mother Hypertension Arthritis Bowel disease Colon cancer Heart disease High cholesterol Grandmother Arthritis Breast cancer Brain tumor Lung cancer Grandfather Myocardial infarction History Items: Diabetes Paternal Family History: Family History (Last Reviewed 03/18/18 @ 15:27 by Soila Marsh) Father Hypertension Bowel disease Heart disease Kidney disease Mother Hypertension Arthritis Bowel disease Colon cancer Heart disease High cholesterol Grandmother Arthritis Breast cancer Brain tumor Lung cancer Grandfather Myocardial infarction History Items: Hypertension Review of Systems Constitutional: Denies: Anorexia, Chills, Fever, Night Sweats, Malaise, Weakness, Weight Change, Fatigue Eyes: Denies: Cataracts, Conjunctivae Inflammation, Double vision, Drainage HEENT: Denies: Difficulty Swallowing, Dysphasia, Ear Pain, Eye Pain, Hard of Hearing, Hearing Changes, Nasal bleeding, Nasal Congestion, Post Nasal Drip Cardiovascular: Reports: Light Headedness. Denies: Chest Pain, Claudication, Chest Pressure, Chest Tightness, Edema, Heaviness, Palpitations Respiratory: Denies: Cough, Hemoptysis, Pleuritic Pain, Shortness of Breath, Shortness of breath at rest, Shortness of breath upon exertion Gastrointestinal: Denies: Abdominal Pain, Constipation, Diarrhea, Hematemesis, Hematochezia, Nausea, Melena, Vomiting Genitourinary: Denies: Dysuria, Frequency, Hematuria, Hesitancy, Incontinence, Urgency Gynecological: Denies: Breast symptoms Musculoskeletal: Denies: Foot Pain, Hand Pain, Joint Pain, Joint stiffness, Joint swelling, Joint Tenderness, Leg Pain Skin: Denies: Dryness, Pruritis, Rash Neurological: Denies: Blurred vision, Double vision, Change in Speech, Slurred speech, Difficulty swallowing, Focal weakness, Incoordination, Numbness, Tingling, Tremor Psychiatric: Denies: Anxiety, Depression, Homicidal Ideations, Suicidal Ideations Endocrine: Denies: Change in Body Habitus, Heat/ Cold Intolerance, Polydipsia, Polyuria Hematologic/ Lymphatic: Denies: Adenopathy, Anemia, Easy Bruising, Easy Bleeding, Petechiae, Purpura VTE Information - Inpt Only VTE Present on Admission: No VTE Mechan Device Prophylaxis: SCD's VTE Pharm Prophylaxis ordered?: No Reason prophylaxis not ordered:: Treatment Not Indicated - Physical Exam General: Alert, Oriented x3, Cooperative, No apparent distress, Well developed, Well nourished HEENT: Atraumatic, PERRLA, EOMI, Normocephalic Oral: Moist Mucosa Neck: Supple, No JVD, Negative Carotid Bruits, No Nuchal Rigidity, Trachea Midline, Thyroid Normal Size and Texture Lungs: Clear to auscultation, Normal air movement, No rhonchi, No wheeze, No rales Cardiovascular: Regular rate, Regular Rhythm, Normal S1, Normal S2, No murmurs, No Ectopic Activity, PMI Normal, No rub noted, No Gallop Abdomen: Bowel Sounds Present, Soft, Non Tender, Non-Distended, No hernias noted Extremities: No edema, Capillary Refill Less than 3 Seconds Skin: No rashes, No breakdown Neurological: Cranial nerves II-XII grossly intact, Neuro grossly intact, Sensory exam intact to light touch and pain, Coordination normal Psych/Mental Status: Normal Affect, Appropriate, Alert and oriented to time, place, person, mood and affect Vital Signs Temp Pulse Resp BP Pulse Ox 98.1 F 74 16 95/39 L 94 03/18/18 16:25 03/18/18 18:46 03/18/18 18:46 03/18/18 18:46 03/18/18 18:46 Oxygen Delivery Method Room Air Weight: 93 kg Body Mass Index (BMI) 34.1 Finger Stick Blood Glucose 168 Laboratory Tests Past 24 Hrs WBC 7.6 RBC 4.10 L Hgb 11.2 L Hct 35.4 L MCV 86.3 MCH 27.3 MCHC 31.6 L RDW 15.8 H RDW Differential 50.5 H Assessment/Plan All Active Problems (Last Updated 03/18/18 @ 19:30 by Rigo Auguste DO) Fracture tibia/fibula (Resolved) Myocardial infarction (Resolved) Pneumonia (Resolved) UTI (urinary tract infection) (Resolved) Atrial fibrillation (Resolved) Hypotension (Acute) Lethargy (Resolved) Right hip pain (Resolved) Syncope and collapse (Resolved) LOVE (acute kidney injury) (Resolved) NSTEMI (non-ST elevated myocardial infarction) (Resolved) #1 hypotension- secondary to medication reaction (antihypertensives)- patient will be placed and observation status on PCU, she will be monitored on telemetry, I will give her IV fluids and hold her Lasix and lisinopril medications. Patient will be reevaluated in the morning. Patient will be kept on her beta-kusum #2 coronary artery-patient underwent cardiac catheterization on 11/18/16 and at that time underwent angioplasty and stenting of the right coronary artery as well as the left anterior descending artery. I will keep her on her beta-kusum for now #3 essential hypertension #4 hyperlipidemia #5 chronic low back pain #6 depression / anxiety Code Visit OBSV E AND M: [id number] Initial observation care L3 03/18/18 1934 <Electronically signed by Rigo Auguste DO> Date Rigo Auguste DO Cosigner Signature: Date (if applicable) CC: Ana Oates MD; Rigo Auguste DO Signed EMERGENCY DEPARTMENT Observed: 03/18/2018 Status: F Source: [place] SUMMARY 6:12 PM [facility] REPOSITORY [facility] Medical Records Department [address] [place] [address] Emergency Department Summary 03/18/18 1737 MR#: [id number] Acct: [id number] Name: JOHANA YBARRA Rep #: [id number] : 1960 57 From: Mohan Conroy MD PCP: Ana Oates MD Status: REG ER ADDENDUM by Mohan Conroy MD on 03/18/18 at 1811 Case was discussed with hospitalist. Reasonable suggestion to administer IV fluids and observe. If this corrects her hypotension and she remains normotensive will treat as outpatient otherwise will contact hospitalist for overnight stay. 03/18/181811 Date Mohan Conroy MD cc: Ana Oates MD * Signed ADDENDUM by Mohan Conroy MD on 03/18/18 at 7455 Patient was informed of results. Most recent blood pressure is 85 systolic. Blood pressure prior was 75 systolic. Patient states she feels lightheaded. In light of these most recent blood pressure readings and declining blood pressures since the documented 125 the hospitalist has been called for observation status PCU. 03/18/18 1749 Date Mohan Conroy MD cc: Ana Oates MD * Signed - ER Visit Summary Date of Service: 03/18/18 Chief Complaint: Patient presents from PCPs office because of hypotension. History of Present Illness: The patient is a 57 F who was seen last week and recommendation for admission. She declined. She attended her court hearing for disability. She was admitted from the court to [facility]. She was admitted for acute renal failure. She states she was discharged when her creatinine returned to normal. She is presently taking 20 mg of lisinopril, 20 mg of Lasix and 25 mg of metoprolol twice daily. She presently has no symptoms. She denies constitutional, HEENT, cardiac, respiratory, GI symptoms. She denies neurologic symptoms. Her only complaint is cough, which is chronic and nonproductive. She is a smoker of 1/2 pack/day. This is a decrease from 2 packs/day. She does have history of coronary disease/TX and hypertension. She presented with single episode when she was diagnosed with TX. Physical Examination: Vital signs remarkable for blood pressure 101/72. Repeat blood pressure 125 systolic. Head is atraumatic normocephalic. Pupils are equal round reactive. Extraocular muscles are intact. TMs are pearly white with landmarks noted. Nares patent with no drainage. Posterior pharynx without erythema or exudate. Uvula is midline. There is no dysphonia or dysphasia. Trachea is midline. There is no stridor with auscultation of the neck. Heart is regular without murmur, gallop or rub. S1 and S2 are normal. Lungs are clear to auscultation with good movement of air bilaterally. Abdomen is soft and nontender. There is no guarding or peritoneal findings. There is no palpable pulsatile mass. There is no abdominal bruit. Gonzalez sign is negative. Negative Rovsing sign. There is no evidence of inguinal or umbilical hernia. There is no asymmetry, swelling, discoloration, leg vein distention, palpable cords or tenderness along the distribution of the deep venous system. Scar noted left ankle secondary to fracture dislocation requiring ORIF. DP and PT pulse diminished bilaterally. Absence of hair on toes. (Patient denies symptoms of claudication.) Test Results: EKG was obtained and interpreted by me as normal. Ventricular rate 67. LA interval, QRS duration and QT interval normal. [place] is normal. H AND H 11.2 and 35.4. Creatinine is 1.08 which is a marked improvement from prior. Troponin less than 0.015. Emergency Department Course and Treatment: EKG was obtained since patient prior to presentation for TX was syncope/multiple falls from hypotension. She also was in A. fib at that time. CBC was obtained today for white count and H AND H. BMP to assess electrolytes and renal function since she signed out AMA last week. Troponin since this has been a problem for several days to evaluate for atypical presentation of cardiac ischemia. Treatment Plan: Decrease lisinopril to 10 mg a day, Lasix 20 mg every other day and follow-up with her PCP Disposition: Discharged to home in stable improved condition Impression: Orthostatic hypotension secondary to adverse medication reaction This note was generated with [employer] dictation software. It may contain incorrect words, spelling, and punctuation that were not noted in review of the chart prior to signing ED Disposition - Plan for ED Patient: Disposition: Home or Assisted Living Chief Complaint: Hypotension Instructions: ED Hypotension Orthostatic Referrals: Ana Oates MD [Primary Care Provider] - 5-7 Days Additional Instructions: Decrease lisinopril to 10 mg a day Take Lasix 20 mg tablet every other day Follow-up with Dr. Oates in 5-7 days What to do if you have Problems For any increased pain, shortness of breath, bleeding, nausea or vomiting, chest pain, or any unexpected problems, contact your Primary Care Provider. Call [email or web address] ([phone]) or report to the closest Emergency Room. Call 911 if necessary. 03/18/18 9910 <Electronically signed by Mohan Conroy MD> Date Mohan Conroy MD Cosigner Signature (If Indicated): Date CC: Ana Oates MD CBC W/DIFF, AUTOMATED Collected: 03/18/2018 Status: F Source: [place] 4:40 PM [facility] REPOSITORY TYPE CODE TESTS RESULT OUT OF RANGE REFERENCE UNITS LAB L100.1000 4.4-11.0 K/mm3 Normal WBC 7.6 LAB L100.1200 4.2-5.4 M/mm3 Low RBC 4.10 LAB L100.1300 12.0-15.0 g/dl Low HGB 11.2 LAB L100.1400 37-47 % Low HCT 35.4 LAB L100.1500 81-99 fL Normal MCV 86.3 LAB L100.1600 27.0-32.0 pg Normal MCH 27.3 LAB L100.1700 32-36 g/gl Low MCHC 31.6 LAB L100.1810 11.6-14.6 % High RDW CV 15.8 LAB L100.1820 35.1-43.9 fl High RDW SD 50.5 LAB L100.1900 150-450 K/mm3 Normal PLT 261 LAB L100.2000 6.2-12.0 fl Normal MPV 9.5 LAB L100.2100 47-70 % Normal NEUT% 54.1 LAB L100.2200 19-41 % Normal LY% 35.8 LAB L100.2300 0-10 % Normal MONO% 7.9 LAB L100.2400 0-5 % Normal EO% 1.8 LAB L100.2500 0-1 % Normal BASO% 0.1 LAB L100.2550 0.0-0.9 % Normal IM GRAN % 0.300 Result Comment: IG% - Immature Granulocytes (promyelocytes, myelocytes and metamyelocytes) > 1% indicates that a LEFT SHIFT is Present. LAB L100.2620 2.0-7.7 X10 3/uL Normal Absolute Neut 4.1 LAB L100.2720 0.83-4.51 X10 3/ul Normal Absolute Lymph 2.71 Performed By: #### L100.0100 #### [facility] [address] [place], [place], [id number] BASIC METABOLIC Collected: 03/18/2018 Status: F Source: MIKAL PROFILE (BMP) 4:40 PM [facility] REPOSITORY TYPE CODE TESTS RESULT OUT OF RANGE REFERENCE UNITS LAB L501.0100 74-106 mg/dL Normal GLU 88 Result Comment: Please note revised GLUCOSE reference range effective 2017. LAB L501.1000 7-18 mg/dL Normal BUN 16 LAB L501.1100 0.55-1.02 mg/dL High CREAT,SERUM 1.08 Result Comment: The validity of the calculated GFR AND GFRAA in patients over 70 years has not been determined. Clinical correlation is essential. LAB L501.1110 >60 mL/min Low EST GFR 56 Result Comment: Non- GFR Calc LAB L501.1115 >60 mL/min Normal EST GFR - AA 67 Result Comment: GFR Calc LAB L501.1255 ml/min Normal Estimated CRCL 52.34 LAB L501.1300 10-20 RATIO Normal BUN/CRE 14.8 LAB L501.2200 8.5-10 mg/dL Normal .1 CA 8.5 LAB L501.5300 136-14 mmol/L Normal 5 NA 137 LAB L501.5600 3.5-5. mmol/L Normal 1 K 4.5 LAB L501.5900 98-107 mmol/L Normal CL 102 LAB L501.6100 21.0-3 mmol/L Normal 2.0 CO2 31.0 LAB L501.6200 5-15 Low GAP 4 Performed By: #### L500.2500, L501.4010 #### [facility] [place], [address] TROPONIN-I Collected: 03/18/2018 Status: F Source: MIKAL 4:40 PM [facility] REPOSITORY TYPE CODE TESTS RESULT OUT OF RANGE REFERENCE UNITS LAB L501.4010 <0.045 ng/mL Normal < 0.015 TROPONIN-I Result Comment: TROPONIN-I EXPECTED VALUES <0.045 Negative 0.045 - 0.590 Consistent with Cardiac Damage > OR = 0.600 Critical Value Not every elevated troponin is indicative of TX. These values should be used with clinical judgement in examining the patient's clinical picture for diagnosis. To establish a diagnosis of TX versus myocardial injury, there must be a demonstrated rise and/or fall in the troponin values, in addition to ischemic symptoms, EKG changes, new regional wall motion abnormality, and/or angiographical evidence. PLEASE NOTE: REFERENCE RANGES EDITED 17 Performed By: #### L500.2500, L501.4010 #### [facility] [address] [place], [address] BASIC METABOLIC PANEL Collected: 03/12/2018 Status: F Source: [facility] 8:06 PM [facility] REPOSITORY TYPE CODE TESTS RESULT OUT OF RANGE REFERENCE UNITS LAB GLU 70-99 mg/dL Normal Glucose 99 Result Comment: This test result might be falsely depressed or falsely elevated on samples drawn from patients taking Sulfasalazine and Sulfapyridine. Venipuncture should occur prior to taking either of these drugs. LAB BUN 8-25 mg/dL Normal BUN 22 LAB CREA 0.40-1.10 mg/dL High Creatinine 1.51 LAB eGFR >60 ml/min/1.73s Low q.m eGFR,NonAfrican-A merican 36 Result Comment: Non- GFR Calc eGFR is an estimated Glomerular Filtration Rate based on the value of the patient's serum creatinine. In outpatients, eGFR should be used as a helpful tool in screening for CKD. In inpatients or patients with acute renal failure, eGFR represents the GFR at the moment of the draw and should be used with caution. LAB eGFRB >60 ml/min/1.73sq.m eGFR, -[place] Low 43 Result Comment: GFR Calc LAB CALCM 8.4-10.2 mg/dL Low Calcium 7.2 LAB NA 135-145 mmol/L Sodium Normal 143 LAB K 3.5-5.1 mmol/L Normal Potassium 4.0 LAB CL 98-108 mmol/L High Chloride 116 LAB CO2 21-32 mmol/L CO2 Normal 21 Performed By: #### CHEM8 #### Unless otherwise noted, all testing performed by [facility] [address] [place], [place] [address] CLIA: [id number] Neon Glass Blower: Jim Mc M.D. CT BRAIN W/O CONTRAST Observed: 03/12/2018 Status: F Source: [facility] 5:26 PM [facility] REPOSITORY Final Report Accession No: [id number] Performed: Mar 12 2018 5:26PM Examination: CT BRAIN W/O CONTRAST EXAM TYPE: CT BRAIN W/O CONTRAST EXAM DATE AND TIME: 03/12/2018 5:26 PM EST INDICATION: 57 years old Female with head injury COMPARISON: None. TECHNIQUE: Multiple axial CT images of the head were obtained without contrast. Dose reduction techniques were achieved by using automated exposure control and/or adjustment of mA and/or kV according to patient size and/or use of iterative reconstruction technique. FINDINGS: Ventricles and sulci are normal in size and configuration. No extraaxial collection. No intracranial hemorrhage. No mass effect or edema. No CT evidence of large territorial infarction. Visualized paranasal sinuses are well aerated. Mastoids are clear. Calvarium is unremarkable. IMPRESSION: No intracranial hemorrhage or mass effect. Interpreting Physician: ERYN MCNAMARA M.D. Trans: cwion : cc: CT SPINE CERVICAL W/O Observed: 03/12/2018 Status: F Source: [facility] CONTRAST 5:26 PM [facility] REPOSITORY Final Report Accession No: [id number] Performed: Mar 12 2018 5:26PM Examination: CT SPINE CERVICAL W/O CONTRAST EXAM TYPE: CT SPINE CERVICAL W/O CONTRAST EXAM DATE AND TIME: 03/12/2018 5:26 PM EST INDICATION: 57 years old Female with neck pain. COMPARISON: None. TECHNIQUE: CT imaging of the cervical spine was obtained without contrast. Dose reduction techniques were achieved by using automated exposure control and/or adjustment of mA and/or kV according to patient size and/or use of iterative reconstruction technique. FINDINGS: Straightening of the cervical lordotic curvature is seen, which can be seen with muscle spasm versus patient positioning. No subluxation. Vertebral body heights are maintained. No fracture. Craniocervical junction is normal in appearance. Atlantodental distance is not widened. No prevertebral soft tissue swelling. IMPRESSION: No acute fracture or traumatic malalignment. Interpreting Physician: ERYN MCNAMARA M.D. Trans: cwion : cc: DRUGS OF ABUSE, Collected: 03/12/2018 Status: F Source: [facility] URINE 5:20 PM [facility] REPOSITORY TYPE CODE TESTS RESULT OUT OF RANGE REFERENCE UNITS LAB CUTOFF Normal DOA Cutoffs See comment. Result Comment: Drugs of Abuse, Urine Presumptive Positive Cutoff Concentrations . Amphetamine/Methamphetamine: 1000 ng/ml Barbiturates: 200 ng/ml Benzodiazepines and metabolities: 200 ng/ml Cannabinoids: 50 ng/ml Cocaine/Benzoylecgonine: 300 ng/ml Methadone: 300 ng/ml Opiates: 300 ng/ml Oxycodone/Oxymorphone: 100 ng/ml LAB AMPH None Detected Amphetamines,Ur Normal None Detected LAB BUD None Detected Barbiturates,Ur Normal None Detected LAB DONTE None Detected Benzodiazepine,Ur Normal None Detected LAB CAN50 None Detected Cannabinoids,Ur Normal None Detected LAB COCAI None Detected Cocaine,Ur Normal None Detected LAB METHD None Detected Methadone,Ur Normal None Detected LAB OPIATE None Detected Opiates,Ur Normal None Detected LAB OXYCOD None Detected Oxycodone, Urine Normal None Detected Result Comment: THESE DRUGS OF ABUSE TESTS ARE PROVIDED A MEDICAL SCREENING ONLY. POSITIVE RESULTS ARE NOT CONFIRMED BY GCMS Performed By: #### UA, DRUGSCRU #### Unless otherwise noted, all testing performed by [facility] [address] [place], [place] [address] CLIA: [id number] Neon Glass Blower: Jim Mc M.D. URINALYSIS, ROUTINE Collected: 03/12/2018 Status: F Source: [facility] 5:20 PM [facility] TYPE CODE TESTS RESULT OUT OF RANGE REFERENCE UNITS LAB COLOR Normal Color, Urine Straw LAB CHAUR Normal Character Clear LAB SPGRUR 1.003-1.029 Normal Specific 1.005 [place],Urine LAB PHUR 4.5-8.0 Normal pH,Urine 5.0 LAB GLUCUR NEG;NEGATIVE mg/dL Normal Glucose,Urine Negative LAB KETUR NEG;NEGATIVE mg/dL Normal Ketone,Urine Negative LAB PROTUR NEG;NEGATIVE mg/dL Normal Protein,Urine Negative LAB BLDUR NEG;NEGATIVE Abnormal Blood,Urine Moderate LAB NITUR NEG;NEGATIVE Normal Nitrite,Urine Negative LAB BILIUR NEG;NEGATIVE Normal Bilirubin,Urin Negative e LAB UROUR <2 mg/dL Normal Urobilinogen,U < 2.0 rine Result Comment: Urobilinogen, Urine Reference Range: <2.0 mg/dL LAB LEUESTUR Negative Leuk.Esterase,Urine Normal Negative LAB WBCUR 0-5 /HPF WBC,Urine Normal 1 LAB RBCUR 0-5 /HPF RBC,Urine Normal 2 LAB SQEPI 0-40 /HPF Squamous Epithelial Normal < 1 LAB BACTUR NS;RARE /HPF Bacteria,Urine Normal Rare LAB AMORPCRY None Seen /HPF Amorphous,Crystal Abnormal Rare LAB CASTHY 0-5 /LPF Cast, Hyaline Normal 1 Performed By: #### UA, DRUGSCRU #### Unless otherwise noted, all testing performed by [facility] [address] [place], [place] [address] CLIA: [id number] Neon Glass Blower: Jim Mc M.D. CHEST (ONE VIEW Observed: 03/12/2018 Status: F Source: [facility] ONLY) 1:54 PM [facility] REPOSITORY Final Report Accession No: [id number] Performed: Mar 12 2018 1:54PM Examination: CHEST (ONE VIEW ONLY) EXAM: CHEST (ONE VIEW ONLY) CLINICAL HISTORY: 57 years old Female presenting with altered mental status. TECHNIQUE: 1 view chest x-ray. COMPARISON: None. FINDINGS: No pneumothorax, pleural effusion or focal airspace consolidation. Left basilar subsegmental atelectasis. Heart is normal in size. There is a healed posterior right fifth rib fracture. IMPRESSION: No acute cardiopulmonary process. Interpreting Physician: BRANDON BLAKE D.O. Trans: gvramseyho : cc: CBC WITH DIFF Collected: 03/12/2018 Status: F Source: [facility] 1:15 PM [facility] REPOSITORY TYPE CODE TESTS RESULT OUT OF REFERENCE UNITS RANGE LAB WBC 3.4-10.6 K/mcL WBC High 11.2 LAB RBC 3.7-5.0 M/mcL RBC 4.41 LAB HGB 11.6-15.4 g/dL Hemoglobin 12.0 LAB HCT 34.4-44.8 % Hematocrit 37.2 LAB MCV 82.6-98.9 FL MCV 84.4 LAB MCH 27.9-33.9 pg Low MCH 27.1 LAB MCHC 33.1-35.1 g/dL Low MCHC 32.1 LAB RDW 10.0-14.4 % RDW High 16.1 LAB PLT 162-402 K/mcL Platelet Count 244 LAB MPV 7.0-10.6 FL MPV 8.9 LAB NEUT# 1.2-6.9 K/mcL High Neutrophil # 7.3 LAB LYMPH# 1.0-3.7 K/mcL Lymphocyte # 2.9 LAB MONO# 0.1-0.6 K/mcL Monocyte High # 0.9 LAB EOS# 0-0.5 K/mcL Eosinophil # 0.1 LAB BASO# 0-0.2 K/mcL Basophil # 0.0 LAB SEGNEU% % Segmented Neut % 65.2 LAB LYMP% % Lymphocyte% 26.0 LAB MO% % Monocyte % 8.0 LAB EO% % Eosinophil % 0.5 LAB BA% % Basophil % 0.3 Performed By: #### PT, CHEM8, ALC, HEPF, EDCTNI, CBCDIF, MG, LIPASE, PTT #### Unless otherwise noted, all testing performed by [place] [address] CLIA: [id number] Neon Glass Blower: Jim Mc M.D. ALCOHOL, MEDICAL Collected: 03/12/2018 Status: F Source: [facility] 1:15 [facility] REPOSITORY TYPE CODE TESTS RESULT OUT OF RANGE REFERENCE UNITS LAB ALCMD G% Normal Alcohol Negative [Medical] Performed By: #### PT, CHEM8, ALC, HEPF, EDCTNI, CBCDIF, MG, LIPASE, PTT #### Unless otherwise noted, all testing performed by [place] [address] CLIA: [id number] Neon Glass Blower: Jim Mc M.D. PROTIME Collected: 03/12/2018 Status: F Source: [facility] 1:15 PM [facility] REPOSITORY TYPE CODE TESTS RESULT OUT OF RANGE REFERENCE UNITS LAB PT. 11.8-14.3 Seconds Normal Protime 14.3 LAB INR Normal INR 1.15 Result Comment: The [place] [employer] recommended therapeutic range for Warfarin (Coumadin) therapy goals: PROPHYLAXIS/TREATMENT of: INR Venous Thrombosis, Pulmonary Embolism 2.0-3.0 Prevention of VTE (Orthopedic Surgery) 2.0-3.0 Atrial Fibrillation 2.0-3.0 Myocardial Infarction 2.0-3.0 Mechanical Prosthetic Heart Valves (Aortic position) 2.0-3.0 Mechanical Prosthetic Heart Valves (Mitral Position) 2.5-3.5 [place] [employer] evidence-based clinical practice guidelines. CHEST. 2012 (9th ed) Performed By: #### PT, CHEM8, ALC, HEPF, EDCTNI, CBCDIF, MG, LIPASE, PTT #### Unless otherwise noted, all testing performed by [place] [address] CLIA: [id number] Neon Glass Blower: Jim Mc M.D. PARTIAL THROMBOPLASTIN Collected: 03/12/2018 Status: F Source: [facility] TIME 1:15 PM [facility] REPOSITORY TYPE CODE TESTS RESULT OUT OF REFERENCE UNITS RANGE LAB PTT 23.0-34.0 Seconds Partial Normal Thromboplastin Time 23 Result Comment: Suggested therapeutic range for PTT is 68-104 sec. Performed By: #### PT, CHEM8, ALC, HEPF, EDCTNI, CBCDIF, MG, LIPASE, PTT #### Unless otherwise noted, all testing performed by [place] [address] CLIA: [id number] Neon Glass Blower: Jim Mc M.D. ED CARDIAC TROPONIN-I Collected: 03/12/2018 Status: F Source: [facility] 1:15 PM [facility] REPOSITORY TYPE CODE TESTS RESULT OUT OF RANGE REFERENCE UNITS LAB EDCTNI < 45 ng/L Normal ED Cardiac < 15 Troponin-I Result Comment: Elevation of troponin indicates some degree of myocardial necrosis but unless there is a significant rise and/or fall (if elevated) identified, it unlikely that an acute event has taken place Samples from patients routinely receiving high dose biotin therapy (100-300 mg/day) may show falsely decreased results. Please correlate clinically. Performed By: #### PT, CHEM8, ALC, HEPF, EDCTNI, CBCDIF, MG, LIPASE, PTT #### Unless otherwise noted, all testing performed by [place] [id number] CLIA: [id number] Neon Glass Blower: Jim Mc M.D. BASIC METABOLIC PANEL Collected: 03/12/2018 Status: F Source: [facility] 1:15 PM [facility] REPOSITORY TYPE CODE TESTS RESULT OUT OF RANGE REFERENCE UNITS LAB GLU 70-99 mg/dL Normal Glucose 96 Result Comment: This test result might be falsely depressed or falsely elevated on samples drawn from patients taking Sulfasalazine and Sulfapyridine. Venipuncture should occur prior to taking either of these drugs. LAB BUN 8-25 mg/dL BUN High 28 LAB CREA 0.40-1.10 mg/dL Creatinine High 2.74 LAB eGFR >60 ml/min/1.73s Low q.m eGFR,NonAfrican-Am erican 18 Result Comment: Non- GFR Calc eGFR is an estimated Glomerular Filtration Rate based on the value of the patient's serum creatinine. In outpatients, eGFR should be used as a helpful tool in screening for CKD. In inpatients or patients with acute renal failure, eGFR represents the GFR at the moment of the draw and should be used with caution. LAB eGFRB >60 ml/min/1.73sq.m eGFR, -[place] Low 22 Result Comment: GFR Calc LAB CALCM 8.4-10.2 mg/dL Low Calcium 7.9 LAB NA 135-145 mmol/L Sodium Normal 137 LAB K 3.5-5.1 mmol/L Normal Potassium 4.6 LAB CL 98-108 mmol/L High Chloride 110 LAB CO2 21-32 mmol/L Low CO2 18 Performed By: #### PT, CHEM8, ALC, HEPF, EDCTNI, CBCDIF, MG, LIPASE, PTT #### Unless otherwise noted, all testing performed by [address] [address] CLIA: [id number] Neon Glass Blower: Jim Mc M.D. LIPASE Collected: 03/12/2018 Status: F Source: [facility] 1:15 PM [facility] REPOSITORY TYPE CODE TESTS RESULT OUT OF RANGE REFERENCE UNITS LAB LIPASE 73-393 U/L Normal Lipase 252 Performed By: #### PT, CHEM8, ALC, HEPF, EDCTNI, CBCDIF, MG, LIPASE, PTT #### Unless otherwise noted, all testing performed by [place] [address] CLIA: [id number] Neon Glass Blower: Jim Mc M.D. MAGNESIUM Collected: 03/12/2018 Status: F Source: [facility] 1:15 PM [facility] TYPE CODE TESTS RESULT OUT OF REFERENCE UNITS RANGE LAB MG 1.6-2.4 mg/dL High Magnesium 2.7 Performed By: #### PT, CHEM8, ALC, HEPF, EDCTNI, CBCDIF, MG, LIPASE, PTT #### Unless otherwise noted, all testing performed by [place] [id number] CLIA: [id number] Neon Glass Blower: Jim Mc M.D. HEPATIC FUNCTION Collected: 03/12/2018 Status: F Source: [facility] PANEL 1:15 PM [facility] REPOSITORY TYPE CODE TESTS RESULT OUT OF RANGE REFERENCE UNITS LAB AST 0-45 U/L Normal AST 12 (SGOT) Result Comment: This test result might be falsely depressed or falsely elevated on samples drawn from patients taking Sulfasalazine and Sulfapyridine. Venipuncture should occur prior to taking either of these drugs. LAB ALT 14-65 U/L Low ALT (SGPT) 13 Result Comment: This test result might be falsely depressed or falsely elevated on samples drawn from patients taking Sulfasalazine and Sulfapyridine. Venipuncture should occur prior to taking either of these drugs. LAB ALKP 40-150 U/L Normal Alkaline Phosphatase 104 LAB BILIT 0.3-1.2 mg/dL Low Bilirubin,Total 0.2 LAB BILID 0.0-0.4 mg/dL Normal Bilirubin, Direct < 0.1 LAB PROT 6.0-8.0 g/dL Normal Protein, Total 6.4 LAB ALB 3.2-5.2 g/dL Low Albumin 3.0 Performed By: #### PT, CHEM8, ALC, HEPF, EDCTNI, CBCDIF, MG, LIPASE, PTT #### Unless otherwise noted, all testing performed by [facility] [address] [place], [place] [address] CLIA: [id number] Neon Glass Blower: Jim Mc M.D. 12 LEAD ELECTROCARDIOGRAM Observed: 03/12/2018 Status: F Source: [place] 12:01 PM [facility] REPOSITORY [facility] Cardiovascular Services [address] [place] [address] 12 Lead EKG 03/11/181956 MR#: [id number] Acct: [id number] Name: JOHANA YBARRA Rep #: [id number] : 1960 57 From: Ulises Varela MD Attending Dr: Status: DEP ER Ordering Dr: Yassine Fischer MD Date: 03/11/18 Location: ED Sex: F C Admitted: Test Reason : SYNCOPE Blood Pressure : / mmHG Vent. Rate : 079 BPM Atrial Rate : 079 BPM P-R Int : 134 ms QRS Dur : 074 ms QT Int : 386 ms P-R-T Axes : 056 007 041 degrees QTc Int : 442 ms Normal sinus rhythm Low voltage QRS Borderline ECG Confirmed by ULISES VARELA MD ([id number]), web content editor SANCHO BAKER ([id number]) on 03/12/2018 12:00:44 PM Referred By: MOON Confirmed By:ULISES VARELA MD 03/12/18 1200 Date Ulises Varela MD CC: MD Fady Fischer; Ana Oates MD Signed EMERGENCY DEPARTMENT Observed: 03/11/2018 Status: F Source: [place] SUMMARY 11:19 PM [facility] REPOSITORY [facility] Medical Records Department [address] [place] [address] Emergency Department Summary 03/11/181940 MR#: [id number] Acct: [id number] Name: JOHANA YBARRA Rep #: [id number] : 1960 57 From: Yassine Fischer MD PCP: Ana Oates MD Status: DEP ER - ER Visit Summary Date of Service: 03/11/18 Chief Complaint: [] Frequent falls chronic pain History of Present Illness: The patient is a 57 F [] patient is brought in by EMS for frequent falls today, she indicates she has a history of her chronic pain syndrome involving her back she has chronic right hip 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 She has been falling multiple times family called paramedics per EMS the family reported to them to staff that the patient has been popping pills all day and kept falling they could not get her to stop taking the pills so they called EMS, the patient indicates she is taking her medications as prescribed does not believe she is abusing them Physical Examination: [] 119/80 pulse ox 95% room air General, no distress resting comfortably she seems sleepy and tired she denies head injury she complains of lumbar back pain left foot pain she denies head neck chest or abdominal pain HEENT is generally unremarkable The neck is supple no adenopathy Cardiovascular, regular rate and rhythm Lungs, clear bilateral Abdomen, soft nontender Extremities, no clubbing cyanosis or edema Neurologic, awake alert answering questions appropriately moving all 4 extremities, complains of some nonspecific left foot pain, complains of very vague nonspecific lumbar back pain with some exacerbation of her chronic back pain syndrome Test Results: [] Emergency Department Course and Treatment: [] Given her complaints screening labs IV fluids The patient's creatinine is almost 5 this is a marked change from her baseline her other studies x-rays are unremarkable, except her hip x-ray which per radiology shows a lucency around the base of the prosthesis that appears to represent a new fracture Discussed this finding with the patient she indicates that her hip is actually not bothering her now she is moving it with full range of motion and she was told by her surgeon that this fracture occurred in the perioperative period and she states that this is not a new finding EKG is not had much to eat or drink in the last few days for a variety of unspecified reasons, her aunt is here and again reports the patient has been overmedicating herself with her meds and the aunt believes that the patient also has gotten a prescription for Valium from some other outpatient provider that would be different from [place] [facility] Dr. Mansfield for who her pain is managed and she receives Vicodin Explained to the patient her aunt and that she should be admitted for further management of the above explained the renal failure could be permanent lead to sudden dialysis etc. however the patient indicated that tomorrow she has a court date that she has been waiting for for 3 years to further process her disability claim that she will not miss she voiced back to me the concern related to the renal failure dialysis etc. but still refused to be admitted, her initial blood pressure was 119 over palp, at rate later fell to 88, she is receiving a 3 L fluid bolus she is drinking p.o. fluids she is awake and alert she insists on being discharged because of the above at this time we will continue to hydrate her until her blood pressure is in a more normal range, and then she will be allowed to sign out AMA Treatment Plan: [] Disposition: [] Signing out AMA refused admission as above Impression: [] Acute renal injury, dehydration, transient hypotension, overmedication with Valium and possibly Arcadia This note was generated with [employer] dictation software. It may contain incorrect words, spelling, and punctuation that were not noted in review of the chart prior to signing ED Disposition - Plan for ED Patient: Chief Complaint: Fall Instructions: Discharge Instructions for Acute Kidney Injury, ED Mechanical Fall, ED Insufficiency Renal Referrals: Ana Oates MD [Primary Care Provider] - Additional Instructions: Follow-up with your doctors as soon as possible, return to the emergency department if worse, do not overmedicate yourself with your Valium and Arcadia, see all of your outpatient providers including her pain management provider to coordinate your ongoing pain management needs to avoid complications What to do if you have Problems For any increased pain, shortness of breath, bleeding, nausea or vomiting, chest pain, or any unexpected problems, contact your Primary Care Provider. Call [email or web address] ([phone]) or report to the closest Emergency Room. Call 911 if necessary. 03/11/18 2319 <Electronically signed by Yassine Fischer MD> Date Yassine Fischer MD Cosigner Signature (If Indicated): Date CC: Ana Oates MD DISCHARGE INSTRUCTION Observed: 03/11/2018 Status: F Source: MIKAL 10:31 PM [facility] REPOSITORY [facility] Medical Records Department [address] [place] [address] Discharge Instruction 03/11/182229 MR#: [id number] Acct: [id number] Name: DEMOND YBARRASTEVO Ari Rep #: [id number] : 1960 57 From: Yassine Fischer MD PCP: Ana Oates MD Status: REG ER ED Disposition - Plan for ED Patient: Chief Complaint: Fall Instructions: ED Mechanical Fall, ED Insufficiency Renal, Discharge Instructions for Acute Kidney Injury Referrals: Ana Oates MD [Primary Care Provider] - Additional Instructions: Follow-up with your doctors as soon as possible, return to the emergency department if worse, do not overmedicate yourself with your Valium and Arcadia, see all of your outpatient providers including her pain management provider to coordinate your ongoing pain management needs to avoid complications What to do if you have Problems For any increased pain, shortness of breath, bleeding, nausea or vomiting, chest pain, or any unexpected problems, contact your Primary Care Provider. Call [facility] ([phone]) or report to the closest Emergency Room. Call 911 if necessary. 03/11/182230 <Electronically signed by Yassine Fischer MD> Date Yassine Fischer MD Cosigner Signature (If Indicated): Date CC: Ana Oates MD CBC W/DIFF, AUTOMATED Collected: 03/11/2018 Status: F Source: MIKAL 7:45 PM [facility] REPOSITORY TYPE CODE TESTS RESULT OUT OF RANGE REFERENCE UNITS LAB L100.1000 4.4-11.0 K/mm3 High WBC 12.8 LAB L100.1200 4.2-5.4 M/mm3 Normal RBC 5.03 LAB L100.1300 12.0-15.0 g/dl Normal HGB 13.7 LAB L100.1400 37-47 % Normal HCT 43.2 LAB L100.1500 81-99 fL Normal MCV 85.9 LAB L100.1600 27.0-32.0 pg Normal MCH 27.2 LAB L100.1700 32-36 g/gl Low MCHC 31.7 LAB L100.1810 11.6-14.6 % High RDW CV 15.6 LAB L100.1820 35.1-43.9 fl High RDW SD 49.6 LAB L100.1900 150-450 K/mm3 Normal PLT 249 LAB L100.2000 6.2-12.0 fl Normal MPV 10.3 LAB L100.2100 47-70 % High NEUT% 78.7 LAB L100.2200 19-41 % Low LY% 15.4 LAB L100.2300 0-10 % Normal MONO% 5.4 LAB L100.2400 0-5 % Normal EO% 0.2 LAB L100.2500 0-1 % Normal BASO% 0.1 LAB L100.2550 0.0-0.9 % Normal IM GRAN % 0.200 Result Comment: IG% - Immature Granulocytes (promyelocytes, myelocytes and metamyelocytes) > 1% indicates that a LEFT SHIFT is Present. LAB L100.2620 2.0-7.7 X10 3/uL High Absolute Neut 10.1 LAB L100.2720 0.83-4.51 X10 3/ul Normal Absolute Lymph 1.98 Performed By: #### L100.0100 #### [facility] [address] [place], [place], [address] BASIC METABOLIC Collected: 03/11/2018 Status: F Source: MIKAL PROFILE (BMP) 7:45 PM [facility] REPOSITORY TYPE CODE TESTS RESULT OUT OF RANGE REFERENCE UNITS LAB L501.0100 74-106 mg/dL High GLU 110 Result Comment: Fasting Glucose result from 100 to 125 mg/dL suggests IMPAIRED HOMEOSTASIS per A.D.A. criteria. Please note revised GLUCOSE reference range effective 2017. LAB L501.1000 7-18 mg/dL High BUN 32 LAB L501.1100 0.55-1.02 mg/dL High CREAT,SERUM 4.59 Result Comment: The validity of the calculated GFR AND GFRAA in patients over 70 years has not been determined. Clinical correlation is essential. LAB L501.1110 >60 mL/min Low EST GFR 11 Result Comment: Non- GFR Calc LAB L501.1115 >60 mL/min Low EST GFR - AA 13 Result Comment: GFR Calc LAB L501.1255 ml/min Normal Estimated CRCL 12.31 LAB L501.1300 10-20 RATIO Low BUN/CRE 7.0 LAB L501.2200 8.5-10 mg/dL Normal .1 CA 8.7 LAB L501.5300 136-14 mmol/L Low 5 NA 133 LAB L501.5600 3.5-5. mmol/L Normal 1 K 4.6 LAB L501.5900 98-107 mmol/L Normal CL 101 LAB L501.6100 21.0-3 mmol/L Normal 2.0 CO2 23.0 LAB L501.6200 5-15 Normal GAP 9 Performed By: #### L500.2500, L501.4010 #### [facility] [address] [place], [address] TROPONIN-I Collected: 03/11/2018 Status: F Source: MIKAL 7:45 PM [facility] REPOSITORY TYPE CODE TESTS RESULT OUT OF RANGE REFERENCE UNITS LAB L501.4010 <0.045 ng/mL Normal < 0.015 TROPONIN-I Result Comment: TROPONIN-I EXPECTED VALUES <0.045 Negative 0.045 - 0.590 Consistent with Cardiac Damage > OR = 0.600 Critical Value Not every elevated troponin is indicative of TX. These values should be used with clinical judgement in examining the patient's clinical picture for diagnosis. To establish a diagnosis of TX versus myocardial injury, there must be a demonstrated rise and/or fall in the troponin values, in addition to ischemic symptoms, EKG changes, new regional wall motion abnormality, and/or angiographical evidence. PLEASE NOTE: REFERENCE RANGES EDITED 17 Performed By: #### L500.2500, L501.4010 #### [facility] [address] [place], [address] FOOT MIN 3 VIEWS Observed: 03/11/2018 Status: F Source: BONNERS FERRY 7:44 PM [facility] REPOSITORY [facility] Imaging Services [address] [place], [place] [address] [address] Foot min 3 Views MR#: [id number] Acct: [id number] Name: JOHANA YBARRA Rep #: [id number] : 1960 F 57 From: Pura Queen MD PCP: Ana Oates MD Status: REG ER Study: Foot min 3 Views Date of Exam: 03/11/18 Exam# [id number] Ordering Dr: Yassine Fischer MD STUDY: X-RAY - LEFT FOOT CLINICAL: Female, 57 years old. Frequent falls. TECHNIQUE: 3 view(s) of the foot. COMPARISON: None. FINDINGS: There is demineralization of the rear and midfoot bones. There is a plate and screw fixation device within the distal fibula. There are screws traversing the distal tibia visualized as well. There are degenerative changes within the midfoot. There is an enthesophyte arising from the posterior calcaneus at the Achilles tendon insertion site. Normal metatarsi. There is degenerative arthrosis of the metatarsophalangeal joint of the hallux . Normal interphalangeal joint of the great toe. Normal phalanges of the great toe. Normal second through fifth metatarsophalangeal joints. Normal interphalangeal joints and phalanges of the lesser toes. The soft tissue structures are unremarkable. RAD/Foot min 3 Views IMPRESSION: No acute osseous injury. Degenerative changes. Electronically Signed: Pura Queen MD at 21:15 EST Tel , Service support , CC: MD Fady Fischer; Ana Oates MD Knitter Helper: Signed HIP, UNI W/ PELVIS Observed: 03/11/2018 Status: F Source: MIKAL 2-3 VIEWS 7:41 PM [facility] REPOSITORY [facility] Imaging Services [address] [place] [address] [place] [address] HIP, UNI W/ Pelvis 2-3 Views MR#: [id number] Acct: [id number] Name: DEMOND YBARRASTEVO Ari Rep #: [id number] : 1960 F 57 From: Michael Meza MD PCP: Ana Oates MD Status: REG ER Study: HIP, UNI W/ Pelvis 2-3 Views Date of Exam: 03/11/18 Exam# [id number] Ordering Dr: Yassine Fischer MD STUDY: X-RAY - RIGHT HIP REASON FOR EXAM: Female, 57 years old. Pain TECHNIQUE: 2 views of the hip. COMPARISON: November 24, 2017 FINDINGS: Hip prosthesis is noted in anatomic alignment and position.. There is a lucency through the base of the greater trochanter suggesting acute fracture with very mild separation of fracture fragments which is not identified on prior exam. RAD/HIP, UNI W/ Pelvis 2-3 Views IMPRESSION: Apparent new fracture through base of the greater trochanter status post right hip prosthesis placement Electronically Signed: Michael Meza MD at 21:32 EST , Service support , CC: MD Fady Fischer; Ana Oates MD Knitter Helper: Signed LUMBAR SPINE 2 OR 3 Observed: 03/11/2018 Status: F Source: BONNERS FERRY VIEWS 7:40 PM [facility] REPOSITORY [facility] Imaging Services [facility] [place] [address] Lumbar Spine 2 or 3 Views MR#: [id number] Acct: [id number] Name: JOHANA YBARRA Rep #: [id number] : 1960 F 57 From: Pura Queen MD PCP: Ana Oates MD Status: REG ER Study: Lumbar Spine 2 or 3 Views Date of Exam: 03/11/18 Exam# [id number] Ordering Dr: Yassine Fischer MD STUDY: X-RAY - LUMBAR SPINE REASON FOR EXAM: Female, 57 years old. Frequent falls. TECHNIQUE: 3 view(s) of the lumbar spine were obtained. COMPARISON: MRI dated May 06, 2017 FINDINGS: Normal lumbar lordosis. There is no substantial scoliosis. There is a normal alignment of the vertebrae. There is diffuse demineralization with multi-level endplate spondylosis. There is multi-level degenerative disc disease with multi- level disc space narrowing. There is atherosclerotic calcification of the abdominal aorta without a demonstrated aneurysm. There is a right hip arthroplasty. RAD/Lumbar Spine 2 or 3 Views IMPRESSION: Degenerative changes of the spine, as detailed above. Atherosclerosis. Electronically Signed: Pura Queen MD at 21:29 EST Tel , Service support , CC: MD Fady Fischer; Ana Oates MD Knitter Helper: Signed CHEST 1 VIEW Observed: 03/11/2018 Status: F Source: MIKAL (PORTABLE) 7:39 PM [facility] REPOSITORY [facility] Imaging Services [address] [place] [address] Chest 1 View (Portable) MR#: [id number] Acct: [id number] Name: JOHANA YBARRA Rep #: [id number] : 1960 F 57 From: Pal Harris DO PCP: Ana Oates MD Status: REG ER Study: Chest 1 View (Portable) Date of Exam: 03/11/18 Exam# [id number] Ordering Dr: Yassine Fischer MD STUDY: X-RAY CHEST REASON FOR EXAM: Female, 57 years old. Frequent falls, pain. TECHNIQUE: Single AP portable view of the chest. COMPARISON: To October 2017 FINDINGS: The lungs are clear and expanded. There is no demonstrated pleural abnormality. Normal size heart. Normal mediastinum and joe. Normal visualized pulmonary arteries. There is atherosclerotic calcification of the aortic arch with tortuosity. Normal visualized thoracic spine. Normal visualized ribs, clavicles, and shoulders. There is no demonstrated abnormality of the visualized soft tissue structures of the upper abdomen. RAD/Chest 1 View (Portable) IMPRESSION: No evidence of acute cardiopulmonary process. Electronically Signed: Pal Harris DO at 21:28 EST , Service support , CC: MD Fady Fischer; Ana Oates MD Knitter Helper: Signed CARDIOLOGY VISIT Observed: 03/09/2018 Status: F Source: MIKAL REPORT 10:36 AM [facility] REPOSITORY [facility] [address] [place] [address] OFFICE VISIT Date of Service: 03/05/18 MR#: [id number] Acct: [id number] Name: JOHANA YBARRA Rep #: [id number] : 1960 Provider: Genia Corrigan Age/Sex: 57/F Location: [facility] Status: Signed HPI HPI Details: JOHANA YBARRA, is a 57 F who presents to the office today for a cardiovascular outpatient follow-up. She has history of coronary artery disease status post stenting to her mid RCA and stenting to her proximal LAD and balloon dilation to diagonal vessel in October 2016, hypertension, hyperlipidemia, and tobacco abuse. From a cardiac standpoint patient is doing well. She does not have any chest discomfort or heaviness. She does not have any worsening shortness of breath. She does note that she is short of breath with activity however she feels that this is related to her debility over the last year. She is currently doing physical therapy for her hip and is continuing to do so. She does not have any orthopnea. She does not have any near- syncope or syncope. She did have one episode of positional dizziness however she does feel that this is likely related to sinus congestion. She does not have any lower extremity edema. Besides having an upcoming colonoscopy patient states that she will be planning on having back surgery in the next 6 months. 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 [Ecotrin] 81 mg PO DAILY@0800 10/29/17 [History Confirmed 03/05/18] Metoprolol Tartrate [Lopressor (beta kusum)] 25 mg PO BID 10/29/17 [History Confirmed 03/05/18] Clopidogrel Bisulfate [Plavix] 75 mg PO DAILY 11/13/17 [History Confirmed 03/05/18] Furosemide [Lasix] 20 mg PO DAILY 11/13/17 [History Confirmed 03/05/18] Rosuvastatin Calcium [Crestor] 40 mg PO DAILY 11/13/17 [History Confirmed 03/05/18] Tizanidine HCl [Zanaflex] 4 mg PO Q8H PRN PRN 11/13/17 [History Confirmed 03/05/18] Acetaminophen [Tylenol] 1,000 mg PO Q8 #90 tab 11/25/17 [Rx Confirmed 03/05/18] Senna/Docusate Sodium [Senokot-S] 2 tab PO BID #20 tab 11/25/17 [Rx Confirmed 03/05/18] buspirone 10 mg tablet 10 mg PO BID #90 tab 02/04/18 [Rx Confirmed 03/05/18] gabapentin 800 mg tablet 800 mg PO .qid tab 02/04/18 [History Confirmed 03/05/18] hydrocodone 7.5 mg-acetaminophen 325 mg tablet 1 tab PO Q8H tab 02/04/18 [History Confirmed 03/05/18] trazodone 100 mg tablet 200 mg PO QHS #60 tab 02/04/18 [Rx Confirmed 03/05/18] lorazepam 0.5 mg tablet 0.5 mg PO QD-BID PRN #30 tab 02/23/18 [Rx Confirmed 03/05/18] PFSH Medical History Fracture tibia/fibula (Resolved) Myocardial infarction (Resolved) Vision problems (Chronic) Pneumonia (Resolved) Osteoarthritis (Chronic) Lump of breast, left (Chronic) UTI (urinary tract infection) (Resolved) Atrial fibrillation (Chronic) Atherosclerosis of [place] coronary artery of [place] heart without angina pectoris (Chronic) Tobacco abuse (Chronic) Syncope and collapse (Resolved) LOVE (acute kidney injury) (Acute) Hypertension (Chronic) Hyperlipidemia (Chronic) Low back pain (Chronic) Surgical History H/O laminectomy (Chronic) History of splenectomy (Acute) History of total right hip replacement (Acute) History of left heart catheterization (Chronic) Hx of bone graft (Chronic 2014) S/P ORIF (open reduction internal fixation) fracture (Chronic) Family History Father Hypertension Bowel disease Heart disease Kidney disease Mother Hypertension Arthritis Bowel disease Colon cancer Heart disease High cholesterol Grandmother Arthritis Breast cancer Brain tumor Lung cancer Grandfather Myocardial infarction Social History Smoking Status: Current every day smoker alcohol intake: current alcohol intake frequency: a few times a week Alcohol type: hard liquor substance use type: does not use caffeine: Yes Type: coffee, carbonated beverages what type of physical activity do you participate in: other details: Physical Therapy frequency: 3-4 times per week seatbelt use: always do you feel safe at home: Yes ROS Const Const: Negative for weakness, fatigue, fever(s) or headache(s) Eyes Eyes: Negative for blind spots, loss of peripheral vision or transient loss of vision ENT ENT: Negative for headache(s), dizziness, tinnitus or Nosebleed/epistaxis Cardio Chest Pain: No Palpitations: No Edema: None Muscle aches with walking: None Resp Respiratory: Negative for SOB with activity, SOB at rest, SOB orthopnea\SOB lying down or Cough GI GI: Negative nausea, vomiting, heartburn or vomiting blood/hematemesis : Negative for hematuria Musc Musc: Negative for muscle aches/ myalgia Neuro Neuro: Negative for weakness, headache(s), dizziness, near syncope, syncope, lightheadedness or orthostatic symptoms Simon Hematologic/Lymphatic: Negative for easy bleeding Endo Endo: Negative for fatigue Cardiology Exam Const Appearance: cooperative, healthy appearing, well developed, well groomed and no acute distress Nutritional Appearance: well nourished and average body habitus Orientation: alert, awake and oriented x3 Head Head: normal to inspection, normocephalic and atraumatic Ears: hearing grossly normal bilaterally and external ears normal Nose: external nose normal, nasal mucous membranes and turbinates normal, nares normal, septum normal, no nasal discharge Face and Sinus: face symmetric Mouth: oral mucosae normal, tongue normal, oropharynx normal and moist mucous membranes Teeth and gingiva: dentition normal Throat: posterior oropharynx normal, tonsils normal and uvula midline Eyes General: appearance normal, both eyes and all related structures Eyelids: eyelids normal Conjunctivae: conjunctivae normal Pupils: PERRL, normal by confrontation and accommodation normal EOM: EOM intact bilaterally Neck Neck: normal visual inspection, trachea midline and no JVD JVD: +5 Carotids: normal carotid upstroke and bounding pulses Chest Chest inspection: normal inspection of the chest, symmetric chest movement and normal respiratory effort Auscultation: Bilateral: Clear to Auscultation Cardio Palpation: normal PMI Rate: regular rate Rhythm: regular rhythm Heart sounds: S1 normal, S2 normal and normal, physiologic split S2; negative rub, gallop or murmur GI GI: normal to inspection, soft, no hepatosplenomegaly and bowel sounds present Neuro General: alert, awake, oriented x3, no focal sensory deficit, gait normal and moves all extremities Skin Skin: no rashes or lesions noted Extremities Pulses: Normal: Right Femoral Pulse, Left Femoral Pulse, Right Dorsalis Pedis Pulse, Left Dorsalis Pedis Pulse, Right Posterior Tibial Pulse, Left Posterior Tibial Pulse, Right Radial Pulse, Left Radial Pulse Lower Extremity Edema: None: Bilateral Musculoskel Musculoskeletal: No joint tenderness Psych Psychological: normal affect Assessment AND Plan 1. Atherosclerosis of [place] coronary artery of [place] heart without angina pectoris I25.10 Plan Patient does not have any symptoms of angina. She will continue with her current aggressive medical management. In regards to her upcoming surgery it is okay for patient to hold her Plavix for a few days prior and resume it as soon as possible after. 2. Essential hypertension I10 Plan Blood pressure is well controlled on current medications, we do not recommend any changes at this time. 3. Mixed hyperlipidemia E78.2 Plan Lipid profile in December 2016 demonstrates total cholesterol 167, HDL 57, LDL 71. Patient will continue with her current moderate intensity statin. This is being managed by her primary care doctor. Plan Detail Other Orders Orders: Additional Comments The above patient was discussed with Dr. Varela, he agrees with plan of care. Thank you for allowing us to participate in patient's plan of care, if you have any questions please do not hesitate to call. This note was generated using a voice recognition system and there may be incorrect words, spelling or punctuation errors that were not noted when reviewing the office note prior to saving. 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 LINE TIER) Coding Level of Care Code Off vis,est,level 3 Diagnoses Atherosclerosis of [place] coronary artery of [place] heart without angina pectoris I25.10 Essential hypertension I10 Hypertension type: essential hypertension Mixed hyperlipidemia E78.2 Hyperlipidemia type: mixed hyperlipidemia Coding Level of Care Code Off vis,est,level 3 Diagnoses Atherosclerosis of [place] coronary artery of [place] heart without angina pectoris I25.10 Essential hypertension I10 Hypertension type: essential hypertension Mixed hyperlipidemia E78.2 Hyperlipidemia type: mixed hyperlipidemia 03/08/18 1048 <Electronically signed by Genia CHANG> Date Genia CHANG 03/09/18 1036<Electronically signed by Ulises Varela MD> Cosigner Signature: Date (if applicable) Ulises Varela MD CC: Elayne Vickers MD 12 LEAD EKG PERFORMED Observed: 03/05/2018 Status: F Source: [facility] 3:[address] [address] 12 Lead EKG performed by [facility] 03/05/18 1535 MR#: [id number] Acct: [id number] Name: JOHANA YBARRA Rep #: [id number] : 1960 57 From: Genia CHANG Attending Dr: Genia Corrigan Status: DEP AMB Ordering Dr: Genia Corrigan Date: 03/05/18 [place] [facility] F C Ad[place]: [facility]12 Lead EKG performed by [facility] ECG Report Interpretation Sinus Rhythm -Prominent R(V1) -nonspecific. Low voltage -possible pulmonary disease. ABNORMAL Electronically signed on 03/11/2018 at 11:31 by Ulises Varela Software Version [id number] 03/11/18 1135 Date Genia CHANG CC: Elayne Vickers MD Date Dictated: 03/05/18 1535 Date Transcribed: 03/05/181534 Knitter Helper: ALBERTO Signed INTERNAL MEDICINE Observed: 02/26/2018 Status: F Source: [place] OFFICE VISIT 8:03 AM [facility] [address] [place] [address] OFFICE VISIT Date of Service: 02/23/18 MR#: [id number] Acct: [id number] Name: JOHANA YBARRA Rep #: [id number] : 1960 Provider: Rigo Solorio NP Age/Sex: 57/F Location[facility] Status: Signed Intake Vital Signs02/23/18 Height 5 ft 5.5 in Intake Visit Reasons: WELL CHECK Chief Complaint: well check Is patient in pain?: Yes (Back ) Pain scale (1-10): 8 Allergies adhesive Adverse Reaction (Verified 02/23/18 14:49) Other baclofen Adverse Reaction (Verified 02/23/18 14:49) LETHARGY Medications DiphenhydrAMINE [Benadryl] 50 mg PO QHS 01/15/17 [History Confirmed 02/23/18] lisinopril 20 mg tablet 20 mg PO DAILY #90 tab 09/17/17 [Rx Confirmed 02/23/18] Aspirin E.C. [Ecotrin] 81 mg PO DAILY@0800 10/29/17 [History Confirmed 02/23/18] Metoprolol Tartrate [Lopressor (beta kusum)] 25 mg PO BID 10/29/17 [History Confirmed 02/23/18] Clopidogrel Bisulfate [Plavix] 75 mg PO DAILY 11/13/17 [History Confirmed 02/23/18] Furosemide [Lasix] 20 mg PO DAILY 11/13/17 [History Confirmed 02/23/18] Rosuvastatin Calcium [Crestor] 40 mg PO DAILY 11/13/17 [History Confirmed 02/23/18] Tizanidine HCl [Zanaflex] 4 mg PO Q8H PRN PRN 11/13/17 [History Confirmed 02/23/18] Acetaminophen [Tylenol] 1,000 mg PO Q8 #90 tab 11/25/17 [Rx Confirmed 02/23/18] Senna/Docusate Sodium [Senokot-S] 2 tab PO BID #20 tab 11/25/17 [Rx Confirmed 02/23/18] buspirone 10 mg tablet 10 mg PO BID #90 tab 02/04/18 [Rx Confirmed 02/23/18] gabapentin 800 mg tablet 800 mg PO .qid tab 02/04/18 [History Confirmed 02/23/18] hydrocodone 7.5 mg-acetaminophen 325 mg tablet 1 tab PO Q8H tab 02/04/18 [History Confirmed 02/23/18] trazodone 100 mg tablet 200 mg PO QHS #60 tab 02/04/18 [Rx Confirmed 02/23/18] lorazepam 0.5 mg tablet 0.5 mg PO QD-BID PRN #30 tab 02/23/18 [Rx Confirmed 02/23/18] Post menopausal: Yes Nurse's Note: Pt presents today for general check up. PFSH Medical History Fracture tibia/fibula (Resolved) Myocardial infarction (Resolved) Vision problems (Chronic) Pneumonia (Resolved) Osteoarthritis (Chronic) Lump of breast, left (Chronic) UTI (urinary tract infection) (Resolved) Atrial fibrillation (Chronic) Atherosclerosis of [place] coronary artery of [place] heart without angina pectoris (Chronic) Tobacco abuse (Chronic) Syncope and collapse (Resolved) LOVE (acute kidney injury) (Acute) Hypertension (Chronic) Hyperlipidemia (Chronic) Low back pain (Chronic) Surgical History H/O laminectomy (Chronic) History of splenectomy (Acute) History of total right hip replacement (Acute) History of left heart catheterization (Chronic) Hx of bone graft (Chronic 2014) S/P ORIF (open reduction internal fixation) fracture (Chronic) Family History Father Hypertension Bowel disease Heart disease Kidney disease Mother Hypertension Arthritis Bowel disease Colon cancer Heart disease High cholesterol Grandmother Arthritis Breast cancer Brain tumor Lung cancer Grandfather Myocardial infarction Social History Smoking Status: Current every day smoker alcohol intake: current alcohol intake frequency: a few times a week Alcohol type: hard liquor substance use type: does not use caffeine: Yes Type: coffee, carbonated beverages what type of physical activity do you participate in: other details: Physical Therapy frequency: 3-4 times per week seatbelt use: always do you feel safe at home: Yes HPI HPI Chief Complaint: well check Details: JOHANA YBARRA, is a 57 F who presents to the office today for a well visit. The patient has a past medical history as listed above. The patient presents today with no acute problems or concerns. She states that it has been several years since her last Pap smear or mammogram, would like a order for mammogram and referred to food and beverage attendant. She has not had a colonoscopy ever. She is a current smoker 30-year history 15 pack/year, she states she is trying to quit but declines pharmacologic intervention. She denies alcohol use. She is requesting influenza vaccine today and states that she is current on her pneumonia and shingles vaccine. Does not follow a routine diet and exercise regimen. The patient otherwise denies any fever, chills, nausea, vomiting, shortness of breath, chest pain or pressure, palpitations, orthopnea, lower extremity edema, syncope or presyncopal episodes. ROS Const Constitutional: No anorexia, body ache, chills, fever(s), decreased energy, malaise, night sweats, weight change, sleep problems, other, snoring, weakness, frequent falls, headache(s), abnormal sleep pattern, change in appetite, excessive sweating or fatigue Eyes Eyes: No blurry vision, change in vision, double vision, discharge, dry eyes, bulging eyes, floaters, eye pain, light sensitivity, spots in vision, tunnel vision, other or visual disturbances ENT ENT: No ear pain, ear discharge, ear pressure, hearing loss, tinnitus, dizziness/vertigo, balance problems, nosebleed/epistaxis, nasal congestion, nasal obstruction, nose pain, sinus pressure, sinus pain, nasal discharge, post nasal drip, facial pain, dental pain, dry mouth, bad breath, hoarseness, mouth lesions, mouth pain, sore throat, difficulty swallowing, neck pain, abnormal hearing, headache(s), other, lip swelling, throat swelling or tongue swelling Resp Respiratory: No cough, change in phlegm color, chest congestion, excessive phlegm production, hemoptysis, pain on inspiration, shortness of breath, pain with cough, snoring, stridor, other or wheezing Cardio Cardiology: No chest pain at rest, chest pain with exertion, leg pain with exertion, shortness of breath, dyspnea on exertion, generalized swelling, irregular heart rhythm, lightheadedness, orthopnea, radiating jaw, neck or arm pain, fast heart rate, slow heart rate, palpitations, other or excessive sweating Gastro GI: No abdominal pain, belching, bloating, change in bowel habits, change in stool character, coffee ground emesis, constipation, cramping, diarrhea, heartburn, difficulty swallowing, feeling full early, excessive flatus, incontinent of stools, Vomiting blood/hematemesis, blood in stool, loose stools, Black,tarry stools, nausea/dyspepsia, pain with swallowing, vomiting or other Genitourinary-Female: No difficulty urinating, burning urination, painful urination, urinary incontinence, urinary frequency, urinary urgency, urinary hesitancy, urinary retention, blood in urine, Frequent nighttime urination/ nocturia, post void dribbling, suprapubic fullness, side pain, sexual problems, genital lesions, genital itching, hot flashes, abnormal periods, abnormal vaginal bleeding, absent period, painful periods, light periods, heavy periods, difficulty getting , painful intercourse, pelvic pain, vaginal dryness, vaginal odor, Vaginal Itching or other Musc Musculoskeletal: No joint pain, back pain, deformity, joint swelling, limited range of motion, loss of height, muscle cramps, muscle weakness, decreased muscle mass, body aches, neck pain, radiating pain into limb, stiffness, other, abnormal walking, numbness or tingling Skin Skin: No acne, hair loss, change in hair, nail changes, boil, change in skin color, dry skin, redness, excessive hair growth, yellowing of the skin, lesions, rash, skin pain, skin ulcer, sores, skin swelling, wounds, other or itching Breast Breast: No change in breast shape, breast lump, breast pain, breast skin changes, breast swelling, nipple discharge or other Neuro Neurology: No abnormal walking, abnormal hearing, abnormal movements, abnormal speech, unsteady gait/balance, dizziness, weakness, frequent falls, headache(s), lack of coordination, loss of vision, numbness, tingling, visual disturbances, restless legs, fainting, tremor(s), other, behavioral changes, confusion or memory loss Psych Psychiatric: No abnormal sleep pattern, No lack of enjoyment, No anxiety, No behavioral changes, No change in appetite, No confusion, No depression, No difficulty concentrating, No hopelessness, No irritability, No memory loss, No mood swings, No panic attacks, No paranoia, No Thoughts of harming yourself/Others, No hallucinations, No other Endo Endocrine: No change in body appearance, cold intolerance, excessive sweating, fatigue, flushing, heat intolerance, increased thirst/drinking, increased hunger, increased urination or other Aller/Imm Allergy/Immunologic: No food intolerance, itchy eyes, lip swelling, seasonal allergy symptoms, throat swelling, tongue swelling, hives, wheezing or other Simon/Lymp Hematologic/Lymphatic: No easy bleeding, easy bruising, enlarged lymph nodes or other Exam Const General: cooperative, comfortable, no acute distress Nutritional Appearance: well nourished, obese Orientation: alert, oriented x3 Limitations: mental status not altered [facility] Head: normal to inspection Ears: hearing grossly normal bilaterally Nose: external nose normal Eyes General: appearance normal, both eyes and all related structures Resp Effort AND Inspection: normal respiratory effort, able to speak in complete sentences, normal respiratory pattern, symmetric chest movement, no audible wheezes, no cough Auscultation: Bilateral: Clear to Auscultation Cardio Palpation: normal PMI Rate: regular rate Heart Sounds: S1 normal, S2 normal, normal S1 and S2, no click, no gallops, no murmurs, no rubs GI Inspection: normal to inspection Auscultation: normal bowel sounds, no hyperactive bowel sounds, no hypoactive bowel sounds Palpation: soft, no hepatosplenomegaly Musc Musculoskeletal: No muscle weakness Skin General: no rashes or lesions noted, elasticity normal, turgor normal Lesions: no lesions Rashes: no rashes Neuro General: alert, awake, oriented x3, CN's II-XI intact bilaterally Speech: speech normal Gait: normal gait Motor: muscle tone normal throughout Extrem General: normal to inspection, normal gait, no edema, no pedal edema Psych Appearance: grossly normal Mental Status: mental status grossly normal Affect: normal affect Attitude: cooperative Thought Process: normal Judgment: judgment good Office Meds Flucelvax Quad [id number] (PF) Performing Provider: SUKHWINDER Hebert Administered by: Nano Nino on 02/23/18 15:55 Dose Route Admin Location Lot Number Expiration Date NDC Spool Salvager 60 mcg IM left deltoid [id number] 09/26/18 99153-934-12 [employer]. Assessment AND Plan Problems 1. Preventative health care Z00.00 Plan Patient to continue with attempts at smoking cessation. Referral made for colonoscopy and mammogram. Patient encouraged to follow with gynecology. Patient to work on dietary modifications, lifestyle changes, and weight reduction. CMP and lipid ordered. Follow-up as previously scheduled or sooner if needed. This note was generated with [employer] dictation software. It may contain incorrect words, spelling, and punctuation that were not noted in checking the note before signing. Orders Orders: Referrals: Medications Refilled: Discontinued: Flucelvax Quad [id number] (PF) (flu vac qs 2018(4 yr60 mcg (0.5 mL) IM ONCE 1 mL 0RF NS Z23 up)CD(PF)) Discontinued Reason: Office Medicat ion has been Documented as given Plan Detail Additional Comments A refill of the patient's Ativan was given to her to take on a as needed basis. OARRS was verified and demonstrates no red flags that would indicate abuse or diversion Health Concerns Influenza vaccine given during today's office visit, patient verbalized understanding of the risks and benefits of the procedure. Patient monitored for 15 minutes after administration and tolerated the procedure well. No signs of reaction at this time. Patient education given.Patient educated on [id number] analgesics that may be appropriate for site discomfort. Coding Level of Care Code Off vis,est,prev 40-64yrs Diagnoses [facility] care Z00.00 02/26/18 0803 <Electronically signed by Rigo PRETTY> Date Rigo PRETTY Cosigner Signature: Date (if applicable) CC: INTERNAL MEDICINE Observed: 02/08/2018 Status: F Source: [place] OFFICE VISIT 4:28 PM [facility] [address] [place] [address] OFFICE VISIT Date of Service: 02/04/18 MR#: [id number] Acct: [id number] Name: JOHANA YBARRA Rep #: [id number] : 1960 Provider: Ana Oates MD Age/Sex: 57/F Location[place] [facility] Status: Signed Intake Vital Signs02/04/18 Height 5 ft 5.5 in 02/04/18 Weight: 191 lb 02/04/18 Body Mass Index (BMI) 31.3 02/04/18 Blood Pressure 135/87 H Intake Visit Reasons: EST CARE, REFERRED BY DR ROGERS Chief Complaint: Est Care. Is patient in pain?: Yes (Back) Pain scale (1-10): 8 Allergies adhesive Adverse Reaction (Verified 02/04/18 14:48) Other baclofen Adverse Reaction (Verified 02/04/18 14:48) LETHARGY Medications DiphenhydrAMINE [Benadryl] 50 mg PO QHS 01/15/17 [History Confirmed 02/04/18] lisinopril 20 mg tablet 20 mg PO DAILY #90 tab 09/17/17 [Rx Confirmed 02/04/18] Aspirin E.C. [Ecotrin] 81 mg PO DAILY@0800 10/29/17 [History Confirmed 02/04/18] Metoprolol Tartrate [Lopressor (beta kusum)] 25 mg PO BID 10/29/17 [History Confirmed 02/04/18] Clopidogrel Bisulfate [Plavix] 75 mg PO DAILY 11/13/17 [History Confirmed 02/04/18] Furosemide [Lasix] 20 mg PO DAILY 11/13/17 [History Confirmed 02/04/18] Rosuvastatin Calcium [Crestor] 40 mg PO DAILY 11/13/17 [History Confirmed 02/04/18] Tizanidine HCl [Zanaflex] 4 mg PO Q8H PRN PRN 11/13/17 [History Confirmed 02/04/18] Acetaminophen [Tylenol] 1,000 mg PO Q8 #90 tab 11/25/17 [Rx Confirmed 02/04/18] Senna/Docusate Sodium [Senokot-S] 2 tab PO BID #20 tab 11/25/17 [Rx Confirmed 02/04/18] buspirone 10 mg tablet 10 mg PO BID #90 tab 02/04/18 [Rx Confirmed 02/04/18] gabapentin 800 mg tablet 800 mg PO .qid tab 02/04/18 [History Confirmed 02/04/18] hydrocodone 7.5 mg-acetaminophen 325 mg tablet 1 tab PO Q8H tab 02/04/18 [History Confirmed 02/04/18] lorazepam 0.5 mg tablet 0.5 mg PO QD-BID PRN #30 tab 02/04/18 [Rx Confirmed 02/04/18] trazodone 100 mg tablet 200 mg PO QHS #60 tab 02/04/18 [Rx Confirmed 02/04/18] PFSH Medical History Fracture tibia/fibula (Resolved) Myocardial infarction (Resolved) Vision problems (Chronic) Pneumonia (Resolved) Osteoarthritis (Chronic) Lump of breast, left (Chronic) UTI (urinary tract infection) (Resolved) Atrial fibrillation (Chronic) Atherosclerosis of [place] coronary artery of [place] heart without angina pectoris (Chronic) Tobacco abuse (Chronic) Syncope and collapse (Resolved) LOVE (acute kidney injury) (Acute) Hypertension (Chronic) Hyperlipidemia (Chronic) Low back pain (Chronic) Surgical History H/O laminectomy (Chronic) History of splenectomy (Acute) History of total right hip replacement (Acute) History of left heart catheterization (Chronic) Hx of bone graft (Chronic 2015) S/P ORIF (open reduction internal fixation) fracture (Chronic) Family History Father Hypertension Bowel disease Heart disease Kidney disease Mother Hypertension Arthritis Bowel disease Colon cancer Heart disease High cholesterol Grandmother Arthritis Breast cancer Brain tumor Lung cancer Grandfather Myocardial infarction Social History Smoking Status: Current every day smoker alcohol intake: current alcohol intake frequency: a few times a week Alcohol type: hard liquor substance use type: does not use caffeine: Yes Type: coffee, carbonated beverages what type of physical activity do you participate in: other details: Physical Therapy frequency: 3-4 times per week seatbelt use: always do you feel safe at home: Yes HPI HPI Chief Complaint: Est Care. Details: JOHANA YBARRA, is a 57yo F who presents to the office today to establish care. She has a past medical history of N STEMI, avascular necrosis of the hip chronic tobacco abuse, chronic back pain and anxiety amongst others as detailed above. She was referred here by her painter railroad car. She had previously followed up with a primary care physician in [place]. Chronic history of anxiety and states that she had been on lorazepam 1 mg 3 times daily for many years. Last use of lorazepam per patient was about a year ago. She reports worsening anxiety and has had several life stressors lately. She currently takes trazodone for sleep however, denies being on any antidepressants or antianxiety medications in the past. Reports a greater than 18-[id number]-[id number] smoking history. She now states that she is down to half a pack a day. She has tried Chantix in the past however this did not help much. She follows up closely with the heart group. Denies any chest pain or palpitations at this time. Rest of review of systems as documented. ROS Const Constitutional: Positive for sleep problems; no chills, fatigue, fever(s), frequent falls, malaise, weakness or change in appetite Eyes Eyes: No blurry vision, change in vision, double vision, discharge or visual disturbances ENT ENT: No abnormal hearing, ear pain, ear pressure or dizziness/vertigo Resp Respiratory: No cough, shortness of breath or wheezing Cardio Cardiology: No chest pain at rest, chest pain with exertion, shortness of breath, dyspnea on exertion, irregular heart rhythm, lightheadedness, orthopnea, fast heart rate or palpitations Gastro GI: No abdominal pain, change in bowel habits, constipation, diarrhea, nausea/dyspepsia or vomiting Genitourinary-Female: No difficulty urinating, burning urination, painful urination, urinary incontinence, urinary frequency, urinary urgency, urinary hesitancy, urinary retention, Frequent nighttime urination/ nocturia, sexual problems, genital lesions, abnormal vaginal bleeding, pelvic pain, vaginal dryness, vaginal odor or Vaginal Itching Musc Musculoskeletal: Positive for back pain (Lumbar. Chronic); no joint pain, joint swelling or limited range of motion Skin Skin: Positive for lesions (lump left clavicle area) and dry skin; no change in skin color, itching, rash or wounds Breast Breast: No breast lump or breast pain Neuro Neurology: No frequent falls, weakness, abnormal hearing, unsteady gait/balance, dizziness, loss of vision, memory loss or visual disturbances Psych Psychiatric: No memory loss, Positive for anxiety, No change in appetite, No depression, No Thoughts of harming yourself/Others Endo Endocrine: No fatigue, heat intolerance, increased thirst/drinking, increased hunger or increased urination Aller/Imm Allergy/Immunologic: No wheezing, itchy eyes or seasonal allergy symptoms Simon/Lymp Hematologic/Lymphatic: No easy bleeding, easy bruising or enlarged lymph nodes Exam Const General: cooperative, no acute distress Orientation: alert, awake, oriented x3 HENMT Head: atraumatic, normocephalic, normal to inspection Ears: hearing grossly normal bilaterally Neck Neck: normal visual inspection, full ROM, no lymphadenopathy Neck mass: No Thyroid: thyroid normal Other: Symmetrical supraclavicular fat deposition. Resp Effort AND Inspection: normal respiratory effort, able to speak in complete sentences Auscultation: Bilateral: Clear to Auscultation Cardio Rate: regular rate Rhythm: regular rhythm Heart Sounds: S1 normal, S2 normal GI Palpation: soft, no hepatosplenomegaly Neuro General: alert, awake, oriented x3, moves all extremities, CN's II-XI intact bilaterally Psych Appearance: grossly normal Mental Status: mental status grossly normal Mood: congruent mood Affect: normal affect Assessment AND Plan 1. Generalized anxiety disorder with panic attacks F41.1; F41.0 Plan Chronic history of anxiety. Said to be worsening lately. Had been on lorazepam however she states that her last use was a year ago. Will start on buspirone 10 mg twice daily and titrate upwards as needed. Lorazepam only for panic attacks. Continue trazodone for insomnia. She states that she has been on this for 20 years. Follow-up in 6 weeks. Medications New: 2. Tobacco abuse Z72.0 Plan Has a greater than 65-[id number]-ypgv smoking history. Now down to half a pack daily. Smoking cessation strongly encouraged especially considering her history of an myocardial infarction, pulmonary embolism and avascular necrosis. She states that she has tried Chantix in the past unsuccessfully. Reacts to have been received and nicotine patches. Nicotine gums recommended. Follow-up at next visit. 3. Neck swelling R22.1 Plan Concerned about left-sided swelling however swelling is symmetrical and appears to be fat deposition. No localized swelling. Will monitor. This note was generated with [employer] software. It may contain incorrect words, spelling, and punctuation that were not noted in checking the note before signing. Plan Detail Other Medications New: Refilled: Coding Level of Care Code Off vis,est,level 3 Diagnoses Generalized anxiety disorder with panic attacks F41.1; F41.0 Tobacco abuse Z72.0 Neck swelling R22.1 02/08/18 1623 <Electronically signed by Ana Oates MD> Date Ana Duongignkeli Signature: Date (if applicable) CC: DISCHARGE INSTRUCTION Observed: 11/25/2017 Status: F Source: [place] 7:06 AM [facility] REPOSITORY [facility] Medical Records Department [address] [place] [address] Instructions for Home/Discharge Instructions 11/25/17 0704 MR#: [id number] Acct: [id number] Name: JOHANA YBARRA Rep #: [id number] : 1960 57 From: Mauricio Kang PA-C PCP: Elayne Vickers MD Status: ADM IN Discharge Diet: No Restrictions Discharge Activity: May Not Drive - while taking narcotic pain medications. May shower in (days): 1 - Turned dressing away from water Ice area for (Minutes): 20 - Every 1-2 hours while awake Weight Bearing Status: Weight bearing as tolerated Elevate: Operative Extremity Additional Activity Instructions:: Wear elastic stockings for 2 weeks. DO NOT use alcohol with narcotic pain medication. DO NOT make important decisions while taking narcotic medication. If you have problems with taking your medication (rash, itching, nausea, etc.) call the office at once. Call your doctor if your incision/area has: Increased Pain/ Swelling, Increased Redness, Foul Smelling Discharge Call your doctor if you observe: Fever of 101 or Higher Remove Dressing in (days):: 4 - Okay to remove on November 29, 2017 Additional Instructions: Follow [facility] postop instructions Place washcloth over incision until well healed to prevent from maceration and poor healing of the incision. Allergies/Adverse Reactions: Allergies adhesive Adverse Reaction (Verified 11/13/17 15:18) Other baclofen Adverse Reaction (Verified 11/13/17 15:18) LETHARGY Medications to take at Discharge DiphenhydrAMINE [Benadryl] 50 mg PO QHS 01/15/17 lisinopril 20 mg tablet 20 mg PO DAILY #90 tab 09/17/17 Aspirin E.C. [Ecotrin] 81 mg PO DAILY@0800 10/29/17 Metoprolol Tartrate [Lopressor (beta kusum)] 25 mg PO BID 10/29/17 Clopidogrel Bisulfate [Plavix] 75 mg PO DAILY 11/13/17 Furosemide [Lasix] 20 mg PO DAILY 11/13/17 Gabapentin [Neurontin] 800 mg PO TIDCM 11/13/17 Rosuvastatin Calcium [Crestor] 40 mg PO DAILY 11/13/17 Tizanidine HCl [Zanaflex] 4 mg PO Q8H PRN PRN 11/13/17 fentaNYL patch [Duragesic patch] 50 mcg TRANSDERM. Q72H 11/13/17 Acetaminophen [Tylenol] 1,000 mg PO Q8 #90 tab 11/25/17 Oxycodone [Oxyir] 5 - 10 mg PO Q4H PRN PRN 5 Days #60 tab 11/25/17 Rivaroxaban [Xarelto] 10 mg PO DAILY@0600 #13 tab 11/25/17 Senna/Docusate Sodium [Senokot-S] 2 tab PO BID #20 tab 11/25/17 traZODone [Desyrel] 200 mg PO QHS #30 tab 11/25/17 The following prescriptions were given: Oxycodone [Oxyir] 5 - 10 mg PO Q4H PRN PRN 5 Days #60 tab PRN Reason: Mod-Severe Pain (4-1010) Acetaminophen [Tylenol] 1,000 mg PO Q8 #90 tab Rivaroxaban [Xarelto] 10 mg PO DAILY@0600 #13 tab traZODone [Desyrel] 200 mg PO QHS #30 tab Senna/Docusate Sodium [Senokot-S] 2 tab PO BID #20 tab Primary Care Physician: Elayne Vickers MD [Primary Care Provider] - Test Results: Test results from this visit will be discussed in further detail at your follow-up appointment, if applicable. Please Follow Up With: [facility] When: 11/27/17 @ 1:00 pm Please Follow Up With: Mauricio Kang PA-C When: 12/07/17 11/25/17 0706 <Electronically signed by Mauricio Kang PA-C> Date Mauricio Kang PA-C CC: Elayne Vickers MD BASIC METABOLIC Collected: 11/25/2017 Status: F Source: MIKAL PROFILE (BMP) 5:41 AM [facility] REPOSITORY TYPE CODE TESTS RESULT OUT OF RANGE REFERENCE UNITS LAB L501.0100 74-106 mg/dL High GLU 143 Result Comment: Fasting Glucose result greater than or equal to 126 mg/dL suggests DIABETES MELLITUS per A.D.A. criteria. Please note revised GLUCOSE reference range effective 2017. LAB L501.1000 7-18 mg/dL Normal BUN 16 LAB L501.1100 0.55-1.02 mg/dL High CREAT,SERUM 1.08 Result Comment: The validity of the calculated GFR AND GFRAA in patients over 70 years has not been determined. Clinical correlation is essential. LAB L501.1110 >60 mL/min Low EST GFR 56 Result Comment: Non- GFR Calc LAB L501.1115 >60 mL/min Normal EST GFR - AA 67 Result Comment: GFR Calc LAB L501.1255 ml/min Normal Estimated CRCL 52.34 LAB L501.1300 10-20 RATIO Normal BUN/CRE 14.8 LAB L501.2200 8.5-10 mg/dL Low .1 CA 8.3 LAB L501.5300 136-14 mmol/L Normal 5 NA 145 LAB L501.5600 3.5-5. mmol/L Normal 1 K 4.4 LAB L501.5900 98-107 mmol/L High CL 109 LAB L501.6100 21.0-3 mmol/L Normal 2.0 CO2 30.0 LAB L501.6200 5-15 Normal GAP 6 Performed By: #### L500.2500 #### [facility] [address] [place], [address] CBC-COMPLETE BLOOD CNT Collected: 11/25/2017 Status: F Source: MIKAL NO DIFF 5:41 AM [facility] REPOSITORY TYPE CODE TESTS RESULT OUT OF RANGE REFERENCE UNITS LAB L100.1000 4.4-11.0 K/mm3 High WBC 11.6 LAB L100.1200 4.2-5.4 M/mm3 Low RBC 4.04 LAB L100.1300 12.0-15.0 g/dl Low HGB 10.8 LAB L100.1400 37-47 % Low HCT 34.3 LAB L100.1500 81-99 fL Normal MCV 84.9 LAB L100.1600 27.0-32.0 pg Low MCH 26.7 LAB L100.1700 32-36 g/gl Low MCHC 31.5 LAB L100.1810 11.6-14.6 % High RDW CV 16.9 LAB L100.1820 35.1-43.9 fl High RDW SD 52.8 LAB L100.1900 150-450 K/mm3 Normal PLT 215 LAB L100.2000 6.2-12.0 fl Normal MPV 10.8 Performed By: #### L100.0500 #### [facility] [address] [place], [address] OPERATIVE REPORT Observed: 11/24/2017 Status: F Source: [place] 1:26 PM [facility] REPOSITORY [facility] Medical Records Department [address] [place] [address] Operative Report 11/24/17 1121 MR#: [id number] Acct: [id number] Name: JOHANA YBARRA Rep #: [id number] : 1960 57 From: Enrique Lema MD PCP: Elayne Vickers MD Status: ADM IN Location: [facility] [id number] Report of Operation Date of Procedure: 11/24/17 Pre-Operative Diagnosis: Right hip avascular necrosis with femoral head collapse and osteoarthritis Post-Operative Diagnosis: Right hip avascular necrosis with femoral head collapse and osteoarthritis Surgery/Procedure Performed:: Right direct anterior total hip replacement Description of Surgical Findings:: Stable hip with equal leg lengths canadian bacon tier: Mauricio Kang Type of Anesthesia:: General Anesthesiologist: Viraj Lim Special Medications: 2 g Ancef, 1 g TXA at incision, 1 g TXA closure, 10 mg Decadron, joint cocktail (5 mg Duramorph, 30 mL of 0.5% Ropivicaine, 1000 units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 10/30/17 fentaNYL patch [Duragesic patch] 50 mcg TRANSDERM. Q72H 9 Days #3 patch 10/30/17 The following prescriptions were given: Oxycodone [Oxyir] 5 - 10 mg PO Q8H PRN PRN 7 Days #40 tab PRN Reason: Severe Pain (-01/06) fentaNYL patch [Duragesic patch] 50 mcg TRANSDERM. Q72H 9 Days #3 patch Gabapentin [Neurontin] 600 mg PO TIDCM 30 Days #90 tab Primary Care Physician: Elayne Vickers MD [Primary Care Provider] - Please follow up with your Primary Care Physician in: in 2- 3 weeks Test Results: Test results from this visit will be discussed in further detail at your follow-up appointment, if applicable. Please Follow Up With: Enrique Lema MD When: Nov 09 2:15 pm Please Follow Up With: Mackenzie Rogers MD When: early next week-call for appointment 10/30/17 8509 <Electronically signed by Rigo Auguste DO> Date Rigo Auguste DO CC: Elayne Vickers MD BASIC METABOLIC Collected: 10/30/2017 Status: F Source: MIKAL PROFILE (BMP) 8:54 AM [facility] REPOSITORY TYPE CODE TESTS RESULT OUT OF RANGE REFERENCE UNITS LAB L501.0100 74-106 mg/dL Normal GLU 96 Result Comment: Please note revised GLUCOSE reference range effective 2017. LAB L501.1000 7-18 mg/dL Normal BUN 16 LAB L501.1100 0.55-1.02 mg/dL Normal CREAT,SERUM 0.78 Result Comment: The validity of the calculated GFR AND GFRAA in patients over 70 years has not been determined. Clinical correlation is essential. LAB L501.1110 >60 mL/min Normal EST GFR 80 Result Comment: Non- GFR Calc LAB L501.1115 >60 mL/min Normal EST GFR - AA 97 Result Comment: GFR Calc LAB L501.1255 ml/min Normal Estimated CRCL 72.47 LAB L501.1300 10-20 RATIO High BUN/CRE 20.4 LAB L501.2200 8.5-10 mg/dL Normal .1 CA 8.7 LAB L501.5300 136-14 mmol/L High 5 NA 146 LAB L501.5600 3.5-5. mmol/L Normal 1 K 4.7 LAB L501.5900 98-107 mmol/L High CL 115 LAB L501.6100 21.0-3 mmol/L Normal 2.0 CO2 26.0 LAB L501.6200 5-15 Normal GAP 5 Performed By: #### L500.2500 #### [facility] Laboratory [address] [place], [address] HISTORY AND PHYSICAL Observed: 10/30/2017 Status: F Source: [place] FERR[place] EXAM 8:38 AM [facility] REPOSITORY [facility] Medical Records Department [address] [place] [address] History and Physical 10/29/171957 MR#: [id number] Acct: [id number] Name: JOHANA YBARRA Rep #: [id number] : 1960 57 From: Rigo Auguste DO PCP: Elayne Vickers MD Status: ADM ANGÉLICA Y Location: [place] [address] Problem List (1) Hypotension Status: Acute Qualifiers: Hypotension type: unspecified hypotension type Qualified Code(s): I95.9 - Hypotension, unspecified (2) Lethargy Status: Acute History of Present Illness Date of Admission: 10/29/17 Chief Complaint: Hypotension, lethargy The patient is a 57 year old F who was sent to the emergency room at [facility] after being seen in her pain management physician's office and noted to have a low blood pressure, lethargy, and speech difficulties. Patient is on multiple medications for pain management, she has avascular necrosis of her right hip as well as chronic back pain and chronic left leg pain due to past history of trauma. Evaluation in the emergency room revealed her blood pressure to be low at 69/42, patient was lethargic but answers questions appropriately and follows commands appropriately. CBC was remarkable for white blood cell count of 11.7, chemistries were unremarkable except for a BUN of 37 and creatinine of 2.29. Patient was placed and observation status for adverse medication reaction due to narcotics, muscle relaxants, and gabapentin as well as hypotension. Patient was given fluids in the emergency room with elevation of her blood pressure into the 90s systolic. Patient's pulse ox on room air was 97%. I talked pain management about her care, I will decrease her gabapentin and Zanaflex, I will also change her over to a fentanyl patch from her [place] ER 15 mg medication, I will hold her oxycodone for now until she is more alert. Past Medical History Past Medical History (Chronic Problems): Chronic Problems (Last Reviewed 09/17/17 @ 15:45 by Ulises Varela MD) Atherosclerosis of [place] coronary artery of [place] heart without angina pectoris (Chronic) Tobacco abuse (Chronic) H/O laminectomy (Chronic) Hypertension (Chronic) Hyperlipidemia (Chronic) Low back pain (Chronic) Medical History: Medical History (Last Reviewed 09/17/17 @ 15:45 by Ulises Varela MD) Atherosclerosis of [place] coronary artery of [place] heart without angina pectoris (Chronic) I25.10 Tobacco abuse (Chronic) Z72.0 Syncope and collapse (Resolved) R55 LOVE (acute kidney injury) (Acute) N17.9 Hypertension (Chronic) I10 Hyperlipidemia (Chronic) E78.5 Low back pain (Chronic) M54.5 Allergies adhesive Adverse Reaction (Verified 10/29/17 12:49) Other baclofen Adverse Reaction (Verified 10/29/17 12:49) LETHARGY Home Medications: Ambulatory Orders Medication Instructions Recorded traZODone [Desyrel] 200 mg PO QHS 09/16/16 Tizanidine HCl [Zanaflex] 4 mg PO TID 11/25/16 Surgical History: Surgical History (Last Reviewed 09/17/17 @ 15:45 by Ulises Varela MD) H/O laminectomy (Chronic) Z98.890 History of left heart catheterization Z98.890 11/17/2016 PRABHAKAR mid RCA and prox LAD Hx of bone graft Onset Date: 201489 S/P ORIF (open reduction internal fixation) fracture Z96.7, Z87.81 tib/fib Surgical History: herniorrhaphy, hysterectomy, - - laminectomy, left tib-fib fracture with open reduction secondary to trauma, coronary artery stents 2, left breast biopsy Psychiatric History: No pertinent psych hx SUSTAIN ENGINEER History: No pertinent SUSTAIN ENGINEER history Lives: With Family Smoking Status: Current every day smoker Tobacco Use: Cigarettes Alcohol: Occasional Drugs: None - *Family History Maternal Family History: Family History (Last Reviewed 09/17/17 @ 15:45 by Ulises Varela MD) Father Hypertension Mother Hypertension History Items: Diabetes Paternal Family History: Family History (Last Reviewed 09/17/17 @ 15:45 by Ulises Varela MD) Father Hypertension Mother Hypertension History Items: Hypertension Review of Systems Constitutional: Denies: Anorexia, Chills, Fever, Night Sweats, Malaise, Weakness, Weight Change, Fatigue Eyes: Denies: Blurred vision, Cataracts, Conjunctivae Inflammation, Double vision, Drainage HEENT: Denies: Difficulty Swallowing, Dysphasia, Ear Pain, Eye Pain, Hearing Changes, Nasal bleeding, Nasal Congestion, Post Nasal Drip Cardiovascular: Denies: Chest Pain, Claudication, Chest Pressure, Chest Tightness, Edema, Heaviness, Orthopnea, Palpitations Respiratory: Denies: Cough, Hemoptysis, Pleuritic Pain, Shortness of Breath, Shortness of breath at rest, Shortness of breath upon exertion, Sputum production Gastrointestinal: Denies: Abdominal Pain, Constipation, Diarrhea, Hematemesis, Hematochezia, Nausea, Melena, Vomiting Genitourinary: Denies: Dysuria, Frequency, Hematuria, Hesitancy, Urgency Gynecological: Denies: Breast symptoms Musculoskeletal: Reports: Back Pain, Joint Pain - Right hip joint, Leg Pain. Denies: Joint stiffness, Joint swelling Skin: Denies: Dryness, Pruritis, Rash Neurological: Denies: Blurred vision, Double vision, Slurred speech, Difficulty swallowing, Focal weakness, Headaches, Numbness, Tingling Psychiatric: Denies: Anxiety, Depression, Homicidal Ideations, Suicidal Ideations Endocrine: Denies: Change in Body Habitus, Heat/ Cold Intolerance, Polydipsia, Polyuria Hematologic/ Lymphatic: Denies: Adenopathy, Anemia, Easy Bruising, Easy Bleeding, Petechiae, Purpura VTE Information - Inpt Only VTE Present on Admission: No VTE Mechan Device Prophylaxis: None VTE Pharm Prophylaxis ordered?: Yes Patient Problems: Active and Suspected Problems (Last Reviewed 09/17/17 @ 15:45 by Ulises Varela MD) Hypotension (Acute) Lethargy (Acute) - Physical Exam General: Alert, Oriented x3, Cooperative, No apparent distress, Well developed, Well nourished HEENT: Atraumatic, PERRLA, EOMI, Normocephalic Oral: Moist Mucosa Neck: Supple, No JVD, No Nuchal Rigidity, Trachea Midline, Thyroid Normal Size and Texture Lungs: Clear to auscultation, Normal air movement, No rhonchi, No wheeze, No rales Cardiovascular: Regular rate, Regular Rhythm, Normal S1, Normal S2, No murmurs, No Ectopic Activity, PMI Normal, No rub noted Abdomen: Bowel Sounds Present, Soft, Non Tender, Non-Distended, No hernias noted Extremities: No clubbing, No cyanosis, No edema, Capillary Refill Less than 3 Seconds Skin: No rashes, No breakdown Neurological: Cranial nerves II-XII grossly intact, Neuro grossly intact, Sensory exam intact to light touch and pain, Coordination normal Psych/Mental Status: Normal Affect, Appropriate, Alert and oriented to time, place, person, mood and affect Vital Signs Temp Pulse Resp BP Pulse Ox 97.6 F L 94 24 H 107/71 95 10/29/17 16:23 10/29/17 19:04 10/29/17 16:23 10/29/17 16:23 10/29/17 16:23 Oxygen Delivery Method Room Air Weight: 90.265 kg Body Mass Index (BMI) 33.1 Intake and Output for Last 24 Hours Intake Total 622 / 622 Balance 622 / 622 Laboratory Tests Past 24 Hrs Lactic Acid 0.6 Urine Color Yellow Urine Clarity Sl. Cloudy Urine pH 5.0 Assessment/Plan All Active Problems (Last Reviewed 09/17/17 @ 15:45 by Ulises Varela MD) Hypotension (Acute) Lethargy (Acute) Right hip pain (Resolved) Syncope and collapse (Resolved) LOVE (acute kidney injury) (Acute) NSTEMI (non-ST elevated myocardial infarction) (Resolved) #1 lethargy secondary to polypharmacy-patient's medication will be adjusted, she will be reevaluated tomorrow #2 acute kidney injury-patient will be given IV fluids, recheck labs tomorrow morning #3 avascular necrosis of the right hip #4 degenerative joint disease lumbar spine #5 coronary artery disease with coronary artery stent placement last year #6 Hypotension-probably secondary to acute kidney injury on a backdrop of polypharmacy, continue IV fluids and adjust medications #7 essential hypertension Code Visit OBSV E AND M: [id number] Initial observation care L3 10/30/17 0838 <Electronically signed by Rigo Auguste DO> Date Rigo Auguste DO Cosigner Signature: Date (if applicable) CC: Elayne Vickers MD; Rigo Auguste DO Signed LACTIC ACID Collected: 10/29/2017 Status: F Source: [place] 5:47 PM [facility] REPOSITORY TYPE CODE TESTS RESULT OUT OF RANGE REFERENCE UNITS LAB L503.6005 0.4-2.0 mmol/L Normal LACTIC ACID 0.6 Performed By: #### L503.6005 #### [facility] Laboratory [facility] [address] [facility]. [place], [place], [address] URINE DRUG SCREEN Collected: 10/29/2017 Status: F Source: MIKAL (VISTA) 3:35 PM [facility] REPOSITORY TYPE CODE TESTS RESULT OUT OF RANGE REFERENCE UNITS LAB L505.0075 TO BE Normal CONFIRMED Result Comment: CONFIRMATORY TESTING FOR ALL POSITIVE URINE DRUG SCREEN RESULTS WILL ONLY BE SENT OUT UPON PHYSICIAN ORDER. VISTA Urine Drug Screen methods provide only preliminary analytical test results. A more specific alternate chemical method must be used in order to obtain a confirmed analytical result. Gas chromatography/mass spectrometery (GC/MS) is the preferred confirmatory method. Clinical consideration and professional judgement should be applied to any drug of abuse test result, particularly when preliminary positive results are used. URINE TCA TESTING MUST BE ORDERED SEPARATELY. USE TEST MNEMONIC: [facility] LAB L505.5005 VISTA UDS PH 5 Normal LAB L505.5015 <1000 ng/mL AMPHETAMINES Normal NEGATIVE LAB L505.5025 < 200 ng/mL BARBITIURATES Normal NEGATIVE LAB L505.5035 < 200 ng/mL BENZODIAZIPINE Normal NEGATIVE LAB L505.5045 < 300 ng/mL COCAINE Normal NEGATIVE LAB L505.5055 < 500 High ng/mL ECSTACY POSITIVE LAB L505.5065 < 300 ng/mL METHADONE Normal NEGATIVE LAB L505.5075 < 300 High ng/mL OPIATES POSITIVE LAB L505.5085 < 25 ng/mL PCP Normal NEGATIVE LAB L505.5095 < 50 ng/mL THC Normal NEGATIVE Performed By: #### L505.5000 #### [facility] Laboratory [address] [place], [address] URINALYSIS, COMPLETE Collected: 10/29/2017 Status: F Source: [place] 3:35 PM [facility] REPOSITORY Order Comment: Has pt arrived? Y How was Urine Obtained? CLEAN CATCH TYPE CODE TESTS RESULT OUT OF RANGE REFERENCE UNITS LAB L400.3000 Yellow COLOR Normal Yellow LAB L400.3050 Clear Normal CLARITY Sl. Cloudy LAB L400.3200 Normal mg/dl Normal GLUCOSE, UR Normal LAB L400.3300 Negative mg/dL Normal BILIRUBIN URINE Negative LAB L400.3400 Negative mg/dl Normal KETONE UR Negative LAB L400.3465 1.002-1.030 Normal SP.GR. DIPSTX 1.015 LAB L400.3550 5.0 - 8.0 pH UR Normal 5.0 LAB L400.3600 Negative mg/dl High PROT 15 DIPSTX LAB L400.3700 Normal mg/dl Normal UROBILI Normal LAB L400.3750 Negative Normal NITRITE UR Negative LAB L400.3780 Negative /ul High 10 OCCULT BLOOD-UR LAB L400.3800 Negative /ul LEUK Normal ESTERASE Negative LAB L400.4050 0-5 /hpf WBC 0 Normal SEEN LAB L400.4100 0-5 /hpf 0 Normal RBC-UA SEEN LAB L400.4150 5-10 /hpf SQUAM 0 Normal EPI SEEN LAB L400.4300 None Seen /hpf 0 Normal BACTERIA SEEN LAB L400.4350 <or=2+ /hpf 0 Normal MUCUS, URINE SEEN LAB L400.8841 1+ Normal AMORPHOUS Performed By: #### L400.0001 #### [facility] Laboratory [address] [place], [address] EMERGENCY DEPARTMENT Observed: 10/29/2017 Status: F Source: BON[place]ERS [place]ERR[place] SUMMARY 3:30 PM [facility] REPOSITORY [facility] Medical Records Department [address] [place] [address] Emergency Department Summary 10/29/17 1525 MR#: [id number] Acct: [id number] Name: JOHANA YBARRA Rep #: [id number] : 1960 57 From: Brent Venegas DO PCP: Elayne Vickers MD Status: REG ER - ER Visit Summary Date of Service: 10/29/17 Chief Complaint: [Hypotension] History of Present Illness: The patient is a 57 F [presents to the emergency department complaint hypotension today. Patient was being seen Dr. Rogers's office when patient was noted to have pinpoint pupils, lethargy, and hypotension. Patient is on chronic narcotic pain medication for history of chronic back and right hip pain. Patient has diagnosis of right hip avascular necrosis however before being able to have surgery on her hip patient had a heart attack and could not get cleared for surgery until she has been on Plavix for a year. Patient denies taking any extra medications although normally she takes morphine 15 mg extended release as well as oxycodone. Patient also takes Zanaflex and gabapentin. Patient also takes trazodone.] Patient only complaining of her chronic right hip pain and chronic back pain. She denies recent illness. She denies any chest pain or shortness of breath. Patient states that her blood pressure normally runs between 80 and 100. Physical Examination: [HEENT-PERRLA, pupils are 2 mm and reactive bilaterally. EOMI. Cranial nerves II through XII grossly intact. TMs clear. Mucous membranes dry. No adenopathy. Cardiovascular-regular rate and rhythm without murmur or ectopy Lungs-clear to auscultation, chest wall stable without crepitus or subcu emphysema Abdomen-normoactive bowel sounds, soft, nontender, no rebound or rigidity, no peritoneal signs. Extremities-intact 4, normal range of motion, normal pulses, atraumatic] Test Results: [EKG obtained arrival shows sinus rhythm with a ventricular rate of 81 bpm]. CBC with differential obtained shows a white blood cell count 11.7, hemoglobin 13, hematocrit 41, platelets 272. Chemistries unremarkable. BUN was 37 and creatinine 2.29. Troponin was less than 0.015. Alcohol was 5.0. Toxicology screen ordered and pending urinalysis ordered and pending salicylate and Tylenol level ordered and pending Emergency Department Course and Treatment: [Patient received 2 L normal same fluid bolus in the emergency department and continues to have systolics anywhere from 80-100. Patient was asking for pain medication for her chronic pain however I explained to her that I was concerned that this may lower her blood pressure further and recommended against it at this time. I offered patient Tylenol or Toradol which she refused.] Treatment Plan: [Admit] Disposition: [Admit for fluid hydration.] I suspect some of her hypotension may be due to medication reaction to narcotics and the other multiple medications that the patient takes. Impression: [Hypotension Dehydration ] This note was generated with [employer] dictation software. It may contain incorrect words, spelling, and punctuation that were not noted in review of the chart prior to signing ED Disposition - Plan for ED Patient: Chief Complaint: Hypotension Referrals: Elayne Vickers MD [Primary Care Provider] - What to do if you have Problems For any increased pain, shortness of breath, bleeding, nausea or vomiting, chest pain, or any unexpected problems, contact your Primary Care Provider. Call [facility] ([phone]) or report to the closest Emergency Room. Call 911 if necessary. 10/29/17 1530 <Electronically signed by Brent Venegas DO> Date Brent Venegas DO Cosigner Signature (If Indicated): Date CC: Elayne Vickers MD; OUT OF TOWN DOCTOR CBC W/DIFF, AUTOMATED Collected: 10/29/2017 Status: F Source: MIKAL 1:25 PM [facility] REPOSITORY TYPE CODE TESTS RESULT OUT OF RANGE REFERENCE UNITS LAB L100.1000 4.4-11.0 K/mm3 High WBC 11.7 LAB L100.1200 4.2-5.4 M/mm3 Normal RBC 4.74 LAB L100.1300 12.0-15.0 g/dl Normal HGB 13.0 LAB L100.1400 37-47 % Normal HCT 40.9 LAB L100.1500 81-99 fL Normal MCV 86.3 LAB L100.1600 27.0-32.0 pg Normal MCH 27.4 LAB L100.1700 32-36 g/gl Low MCHC 31.8 LAB L100.1810 11.6-14.6 % High RDW CV 16.3 LAB L100.1820 35.1-43.9 fl High RDW SD 51.8 LAB L100.1900 150-450 K/mm3 Normal PLT 222 LAB L100.2000 6.2-12.0 fl Normal MPV 9.9 LAB L100.2100 47-70 % High NEUT% 72.2 LAB L100.2200 19-41 % Normal LY% 19.7 LAB L100.2300 0-10 % Normal MONO% 6.9 LAB L100.2400 0-5 % Normal EO% 0.8 LAB L100.2500 0-1 % Normal BASO% 0.2 LAB L100.2550 0.0-0.9 % Normal IM GRAN % 0.200 Result Comment: IG% - Immature Granulocytes (promyelocytes, myelocytes and metamyelocytes) > 1% indicates that a LEFT SHIFT is Present. LAB L100.2620 2.0-7.7 X10 3/uL High Absolute Neut 8.5 LAB L100.2720 0.83-4.51 X10 3/ul Normal Absolute Lymph 2.31 Performed By: #### L100.0100 #### [facility] Laboratory [address] [place], [address] BASIC METABOLIC Collected: 10/29/2017 Status: F Source: MIKAL PROFILE (BMP) 1:25 PM [facility] REPOSITORY TYPE CODE TESTS RESULT OUT OF RANGE REFERENCE UNITS LAB L501.0100 74-106 mg/dL Normal GLU 102 Result Comment: Fasting Glucose result from 100 to 125 mg/dL suggests IMPAIRED HOMEOSTASIS per A.D.A. criteria. Please note revised GLUCOSE reference range effective 2017. LAB L501.1000 7-18 mg/dL High BUN 37 LAB L501.1100 0.55-1.02 mg/dL High CREAT,SERUM 2.29 Result Comment: The validity of the calculated GFR AND GFRAA in patients over 70 years has not been determined. Clinical correlation is essential. LAB L501.1110 >60 mL/min Low EST GFR 23 Result Comment: Non- GFR Calc LAB L501.1115 >60 mL/min Low EST GFR - AA 28 Result Comment: GFR Calc LAB L501.1255 ml/min Normal Estimated CRCL 22.69 LAB L501.1300 10-20 RATIO Normal BUN/CRE 16.2 LAB L501.2200 8.5-10 mg/dL Normal .1 CA 8.9 LAB L501.5300 136-14 mmol/L Normal 5 NA 138 LAB L501.5600 3.5-5. mmol/L Normal 1 K 4.1 LAB L501.5900 98-107 mmol/L Normal CL 100 LAB L501.6100 21.0-3 mmol/L Normal 2.0 CO2 26.0 LAB L501.6200 5-15 Normal GAP 12 Performed By: #### L500.2500, L501.4010 #### [facility] [address] [place], [address] TROPONIN-I Collected: 10/29/2017 Status: F Source: [place] 1:25 PM [facility] REPOSITORY TYPE CODE TESTS RESULT OUT OF RANGE REFERENCE UNITS LAB L501.4010 <0.045 ng/mL Normal < 0.015 TROPONIN-I Result Comment: TROPONIN-I EXPECTED VALUES <0.045 Negative 0.045 - 0.590 Consistent with Cardiac Damage > OR = 0.600 Critical Value Not every elevated troponin is indicative of TX. These values should be used with clinical judgement in examining the patient's clinical picture for diagnosis. To establish a diagnosis of TX versus myocardial injury, there must be a demonstrated rise and/or fall in the troponin values, in addition to ischemic symptoms, EKG changes, new regional wall motion abnormality, and/or angiographical evidence. PLEASE NOTE: REFERENCE RANGES EDITED 17 Performed By: #### L500.2500, L501.4010 #### [facility] [address] [place], [address] LACTIC ACID Collected: 10/29/2017 Status: F Source: [place] 1:25 PM [facility] REPOSITORY Order Comment: Yes/No query for Sepsis Lactate Rule Y TYPE CODE TESTS RESULT OUT OF REFERENCE UNITS RANGE LAB L503.6005 0.4-2.0 mmol/L High LACTIC ACID 2.3 Result Comment: Critical Result(s) Called at: 14:04:23 10/29/2017 by: Jody Hagan Performed By: #### L503.6005 #### [facility] [address] [place], [address] ALCOHOL, BLOOD Collected: 10/29/2017 Status: F Source: [place] (MEDICAL)-SERUM 1:25 PM [facility] REPOSITORY TYPE CODE TESTS RESULT OUT OF RANGE REFERENCE UNITS LAB L501.9100 mg/dL Normal SERUM 5.0 ETOH Result Comment: The serum:whole blood ethanol ratio is approximately 1.14 and varies slightly with hematocrit. Medical Alcohol reference interval and critical value in non-tolerant individuals; 50 - 100 Impairment 100 Intoxication 100 - 250 Severe Poisoning 250 - 400 Deep/possible fatal coma Performed By: #### L501.9100 #### [facility] [address] [place], [address] SALICYLATE Collected: 10/29/2017 Status: F Source: [place] 1:25 PM [facility] REPOSITORY TYPE CODE TESTS RESULT OUT OF RANGE REFERENCE UNITS LAB L501.8300 2.8-20.0 mg/dL Normal SALICYLATE 5.8 Performed By: #### L501.8300, L501.8400 #### [facility] [address] [place], [address] ACETAMINOPHEN (TYLENOL) Collected: 10/29/2017 Status: F Source: [place] LEVEL 1:25 PM [facility] REPOSITORY TYPE CODE TESTS RESULT OUT OF REFERENCE UNITS RANGE LAB L501.8400 10.0-30.0 ug/mL ACETAMINOPHEN Low 6.4 Performed By: #### L501.8300, L501.8400 #### [facility] [address] [place], [address] CHEST 1 VIEW Observed: 10/29/2017 Status: F Source: [place] (PORTABLE) 1:11 PM [facility] REPOSITORY [facility] Imaging Services [address] [place] [address] Chest 1 View (Portable) MR#: [id number] Acct: [id number] Name: JOHANA YBARRA Rep #: [id number] : 1960 F 57 From: Bon Valentin MD PCP: Elayne Vickers MD Status: REG ER Study: Chest 1 View (Portable) Date of Exam: 10/29/17 Exam# [id number] Ordering Dr: Brent Venegas DO STUDY: X-RAY CHEST REASON FOR EXAM: Female, 57 years old. Lethargy. Hypotension. TECHNIQUE: Single AP portable view of the chest. COMPARISON: Comparison is made with prior study dated November 15, 2016. FINDINGS: EKG electrodes are seen. Hyperinflation. The lungs are clear. There is no demonstrated pleural abnormality. Normal size heart. Normal mediastinum and joe. Normal visualized pulmonary arteries. There is atherosclerotic tortuosity of the aortic arch and descending thoracic aorta. Normal visualized thoracic spine. Normal visualized ribs, clavicles, and shoulders. There is no demonstrated abnormality of the visualized soft tissue structures of the upper abdomen. RAD/Chest 1 View (Portable) IMPRESSION: Hyperinflation. The lungs are clear. Electronically Signed: Bon Valentin MD at 13:54 EDT Tel [phone], Service support , CC: Elayne Vickers MD; Brent Venegas DO Knitter Helper: Signed URINE DRUG SCREEN Collected: 10/12/2017 Status: F Source: [place] (VISTA) 5:03 PM [facility] REPOSITORY Order Comment: Comments: [id number] [facility] TOXICOLOGY RUN LOWEST TEST List of Drugs Taken or Suspected? UNK TYPE CODE TESTS RESULT OUT OF RANGE REFERENCE UNITS LAB L505.0075 TO BE Normal CONFIRMED Result Comment: CONFIRMATORY TESTING FOR ALL POSITIVE URINE DRUG SCREEN RESULTS WILL ONLY BE SENT OUT UPON PHYSICIAN ORDER. VISTA Urine Drug Screen methods provide only preliminary analytical test results. A more specific alternate chemical method must be used in order to obtain a confirmed analytical result. Gas chromatography/mass spectrometery (GC/MS) is the preferred confirmatory method. Clinical consideration and professional judgement should be applied to any drug of abuse test result, particularly when preliminary positive results are used. URINE TCA TESTING MUST BE ORDERED SEPARATELY. USE TEST MNEMONIC: [facility] LAB L505.5005 VISTA UDS PH 5 Normal LAB L505.5015 <1000 ng/mL AMPHETAMINES Normal NEGATIVE LAB L505.5025 < 200 ng/mL BARBITIURATES Normal NEGATIVE LAB L505.5035 < 200 ng/mL BENZODIAZIPINE Normal NEGATIVE LAB L505.5045 < 300 ng/mL COCAINE Normal NEGATIVE LAB L505.5055 < 500 High ng/mL ECSTACY POSITIVE LAB L505.5065 < 300 ng/mL METHADONE Normal NEGATIVE LAB L505.5075 < 300 High ng/mL OPIATES POSITIVE LAB L505.5085 < 25 ng/mL PCP Normal NEGATIVE LAB L505.5095 < 50 ng/mL THC Normal NEGATIVE Performed By: #### L505.5000 #### [facility] [address] [place], [address] ALCOHOL, BLOOD Collected: 10/12/2017 Status: F Source: [place] (MEDICAL)-SERUM 5:03 PM [facility] REPOSITORY Order Comment: Comments: [id number] [facility] TOXICOLOGY RUN LOWEST TEST TYPE CODE TESTS RESULT OUT OF RANGE REFERENCE UNITS LAB L501.9100 mg/dL Normal SERUM < 3.0 ETOH Result Comment: The serum:whole blood ethanol ratio is approximately 1.14 and varies slightly with hematocrit. Medical Alcohol reference interval and critical value in non-tolerant individuals; 50 - 100 Impairment 100 Intoxication 100 - 250 Severe Poisoning 250 - 400 Deep/possible fatal coma Performed By: #### L501.9100 #### [facility] [address] [place], [address] MISCELLANEOUS LAB Collected: 10/12/2017 Status: F Source: [place] PROCEDURE 5:03 PM [facility] REPOSITORY Order Comment: Comments: [id number] [facility] TOXICOLOGY RUN LOWEST TEST Test(s) Ordered: [id number] [facility] TOXICOLOGY RUN LOWEST TEST TYPE CODE TESTS RESULT OUT OF RANGE REFERENCE UNITS LAB L801.1541 Normal [facility] TEST Result Comment: [id number] 6+OXYCODONE-BUND (ng/mL) DRUG RESULT SCREEN CUTOFF ____ Amphetamines,Urine Negative ng/mL 1000 Amphetamine test includes Amphetamine and Methamphetamine. Barbiturates Negative ng/mL 200 Benzodiazepines Negative ng/mL 200 Cannabinoid Negative ng/mL 20 Cocaine (Metab) Negative ng/mL 300 Opiates POSITIVE ng/mL 300 Opiates test includes Codeine, Morphine, Hydromorphone, Hydrocodone. Codeine Negative 300 Morphine POSITIVE Morphine Confirm >3000 ng/mL 300 Hydromorphone Negative 300 Hydrocodone Negative 300 Oxycodone/Oxymorphone,Urine POSITIVE ng/mL 300 Test includes Oxydodone and Oxymorphone. Oxycodone Positive Oxycodone GC/MS 880 ng/mL 300 Oxymorphone Positive Oxymophone GC/MS 732 ng/mL 300 TESTING PERFORMED AT [facility]. ORIGINAL REPORT ON FILE IN LAB CONTAINS ADDITIONAL TEST SITE INFORMATION. Performed By: #### L801.1541 #### [facility] [address] [place], [address] DISCHARGE INSTRUCTION Observed: 10/10/2017 Status: F Source: [place] 1:49 AM [facility] REPOSITORY [facility] Medical Records Department [address] [address] Discharge Instruction 10/10/17147 MR#: [id number] Acct: [id number] Name: JOHANA YBARRA Rep #: [id number] : 1960 57 From: Sanford Pelletier MD PCP: Elayne Vickers MD Status: REG ER ED Disposition - Plan for ED Patient: Chief Complaint: Lower Extremity Injury Instructions: ED Necrosis Avascular Femoral Head Referrals: Elayne Vickers MD [Primary Care Provider] - Mackenzie Rogers MD [STAFF PHYSICIAN] - What to do if you have Problems For any increased pain, shortness of breath, bleeding, nausea or vomiting, chest pain, or any unexpected problems, contact your Primary Care Provider. Call [facility] ([phone]) or report to the closest Emergency Room. Call 911 if necessary. 10/10/17148 <Electronically signed by Sanford Pelletier MD> Date Sanford Pelletier MD Cosigner Signature (If Indicated): Date CC: Elayne Vickers MD; OUT OF TOWN DOCTOR EMERGENCY DEPARTMENT Observed: 10/10/2017 Status: F Source: [place] SUMMARY 1:48 AM [facility] REPOSITORY [facility] Medical Records Department [address] [place] [address] Emergency Department Summary 10/10/17144 MR#: [id number] Acct: [id number] Name: DEMOND YBARRASTEVO Ari Rep #: [id number] : 1960 57 From: Sanford Pelletier MD PCP: Elayne Vickers MD Status: REG ER - ER Visit Summary Date of Service: 10/10/17 Chief Complaint: Right hip pain History of Present Illness: The patient is a 57 F who presents with right hip pain. She has a history of avascular necrosis of the right hip and will require a hip replacement. However she had a myocardial infarction last year. 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 She complains of chronic gradually worsening severe right hip pain over the past several months. No acute injury or sudden change or worsening. No fall. She does complain of some burning pain radiating down her right leg as well. She denies paresthesias or weakness. She is able to ambulate although it is painful. She has a rolling walker at home as well. She is in pain management and uses long-acting morphine and immediate release oxycodone for pain control but states this has not been managing her lately. Physical Examination: Afebrile, vitals stable Patient does appear uncomfortable Heart regular rate and rhythm Lungs clear She has limited painful range of motion of the right hip Normal sensation distally with brisk capillary refill and easily palpable dorsalis pedis pulse Test Results: Right hip x-ray shows marked degenerative changes and severe flattening of the right femoral head similar to prior. Emergency Department Course and Treatment: Patient was given intramuscular morphine for acute pain control with significant relief of symptoms. She has an appointment with her pain management physician on Thursday. She was advised to continue her current pain medication regimen and supportive care. She understands to return for new or worsening symptoms. She is comfortable with the plan to be discharged. Treatment Plan: [] Disposition: Discharge Impression: Chronic right hip pain Avascular necrosis of right hip This note was generated with [employer] dictation software. It may contain incorrect words, spelling, and punctuation that were not noted in review of the chart prior to signing ED Disposition - Plan for ED Patient: Chief Complaint: Lower Extremity Injury Referrals: Elayne Vickers MD [Primary Care Provider] - What to do if you have Problems For any increased pain, shortness of breath, bleeding, nausea or vomiting, chest pain, or any unexpected problems, contact your Primary Care Provider. Call [email or web address] ([phone]) or report to the closest Emergency Room. Call 911 if necessary. 10/10/17 0148 <Electronically signed by Sanford Pelletier MD> Date Sanford Pelletier MD Cosigner Signature (If Indicated): Date CC: Elayne Vickers MD; OUT OF TOWN DOCTOR HIP 2-3 VIEWS WITH Observed: 10/10/2017 Status: F Source: [place] PELVIS 12:40 AM [facility] REPOSITORY [facility] Imaging Services [address] [place] [address] Hip 2-3 Views with Pelvis MR#: [id number] Acct: [id number] Name: DEMOND YBARRASTEVO Ari Rep #: [id number] : 1960 F 57 From: Latisha Adair MD PCP: Elayne Vickers MD Status: REG ER Study: Hip 2-3 Views with Pelvis Date of Exam: 10/10/17 Exam# [id number] Ordering Dr: Sanford Pelletier MD STUDY: X-RAY - PELVIS AND RIGHT HIP REASON FOR EXAM: Female, 57 years old. Chronic pain TECHNIQUE: Three views of the pelvis and hip were obtained. COMPARISON: July 25, 2017 FINDINGS: The bowel gas pattern is unremarkable. There are diffuse vascular calcifications. There are moderate degenerative changes in the lower lumbar spine. The visualized iliac wings, sacroiliac joints and sacrum are unremarkable. No abnormalities are seen in the visualized superior and inferior pubic rami. Normal appearing pubic symphysis. The visualized ischial tuberosities are unremarkable. There is marked flattening of the right femoral head. There is mixed lucency and sclerosis in the acetabulum. There is severe narrowing of the right hip joint superiorly. RAD/Hip 2-3 Views with Pelvis IMPRESSION: Marked degenerative changes are again seen in the right hip with severe flattening of the right femoral head. Electronically Signed: Latisha Adair MD at 1:39 EDT Tel Direct: [phone], Service support , CC: Elayne Vickers MD; Sanford Pelletier MD Knitter Helper: Signed CARDIOLOGY VISIT Observed: 09/17/2017 Status: F Source: [place] REPORT 3:49 PM [facility] REPOSITORY [facility] [address] [place] [address] OFFICE VISIT Date of Service: 09/17/17 MR#: [id number] Acct: [id number] Name: JOHANA YBARRA Rep #: [id number] : 1960 Provider: Ulises Varela MD Age/Sex: 57/F Location: [facility] Status: Signed HPI HPI Chief Complaint: Follow up Details: JOHANA YBARRA, is a 57 F who presents to the office today for an office visit. She is a lady who had presented with a syncopal episode developed non-ST elevation myocardial infarction underwent a cardiac catheterization with demonstrated severe two-vessel disease. There was a 95% mid segment right coronary artery lesion and a proximal 90% left anterior descending artery lesion and a mid 70% stenosis. She underwent angioplasty and stenting with a 3.0 15 mm resolute integrity stent in the mid right coronary artery as well as a 3.0 9 mm stent in the left anterior descending artery. The diagonal vessel was also dilated with a 2.0 mm balloon. She has denied any chest pain or shortness of breath except with anxiety no paroxysmal nocturnal dyspnea pedal edema. She did have some problems a few weeks ago with her blood pressure being low from dehydration her lisinopril was reduced but subsequently her blood pressure went up and so she has gone back on her dose of lisinopril with her blood pressure being well controlled. Her physical exam today demonstrates clear lung prasad regular rate and rhythm and no pedal edema so is most. 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 Is patient in pain?: No Allergies adhesive Adverse Reaction (Verified 09/17/17 14:38) Other baclofen Adverse Reaction (Verified 09/17/17 14:38) LETHARGY Medications traZODone [Desyrel] 200 mg PO QHS 09/16/16 [History Confirmed 09/16/17] Tizanidine HCl [Zanaflex] 4 mg PO TID 11/25/16 [History Confirmed 09/16/17] DiphenhydrAMINE [Benadryl] 50 mg PO QHS 01/15/17 [History Confirmed 09/16/17] gabapentin 400 mg capsule 800 mg PO 4X/DAY 03/18/17 [History Confirmed 09/16/17] metoprolol tartrate 25 mg tablet 25 mg PO BID 60 Days #60 tab 05/25/17 [Rx Confirmed 09/16/17] rosuvastatin 40 mg tablet 40 mg PO DAILY 30 Days #30 tab 05/25/17 [Rx Confirmed 09/16/17] Senna/Docusate Sodium [Senokot-S] 2 tab PO DAILY #60 tab 07/21/17 [Rx Confirmed 09/16/17] Aspirin [Aspirin, Baby] 81 mg PO DAILY 08/12/17 [History Confirmed 09/16/17] clopidogrel 75 mg tablet 75 mg PO DAILY 30 Days #90 tab 09/17/17 [Rx Confirmed 09/17/17] furosemide 20 mg tablet 20 mg PO DAILY #90 tab 09/17/17 [Rx Confirmed 09/17/17] lisinopril 20 mg tablet 20 mg PO DAILY #90 tab 09/17/17 [Rx Confirmed 09/17/17] morphine ER 15 mg tablet,extended release 15 mg PO Q12H 09/17/17 [History Confirmed 09/17/17] Ejection fraction %: 65 to 70 PFSH Medical History Atherosclerosis of [place] coronary artery of [place] heart without angina pectoris (Chronic) Tobacco abuse (Chronic) Syncope and collapse (Resolved) LOVE (acute kidney injury) (Acute) NSTEMI (non-ST elevated myocardial infarction) (Acute) Hypertension (Chronic) Hyperlipidemia (Chronic) Low back pain (Chronic) Surgical History H/O laminectomy (Chronic) History of left heart catheterization (Chronic) Hx of bone graft (Chronic 2014) S/P ORIF (open reduction internal fixation) fracture (Chronic) Family History Father Hypertension Mother Hypertension Social History Smoking Status: Current every day smoker alcohol intake: current alcohol intake frequency: a few times a week Alcohol type: hard liquor substance use type: does not use caffeine: Yes Type: coffee, carbonated beverages what type of physical activity do you participate in: none seatbelt use: always do you feel safe at home: Yes ROS Const Const: Negative for fatigue, weakness, night sweats, excessive sweating, frequent falls, headache(s) or daytime sleepiness Eyes Eyes: Negative for loss of peripheral vision, transient loss of vision, blind spots, double vision or blurry vision ENT ENT: Negative for headache(s), dizziness, balance problems, Nosebleed/epistaxis, tongue swelling or lip swelling Cardio Chest Pain: No Palpitations: No Edema: None Muscle aches with walking: None Resp Respiratory: Negative for SOB at rest, SOB orthopnea\SOB lying down, Cough, paroxysmal nocturnal dyspnea or SOB with activity GI GI: Negative nausea, vomiting, heartburn, black,tarry stools or bright, red blood in stools : Negative for hematuria Musc Musc: Positive for muscle weakness and joint pain; negative for balance problems or muscle aches/ myalgia Skin Skin: Negative non-healing lesions, unusual bruising or rash Neuro Neuro: Negative for weakness, frequent falls, headache(s), double vision, dizziness, lightheadedness, orthostatic symptoms, blurry vision or lack of coordination Simon Hematologic/Lymphatic: Negative for easy bruising or easy bleeding Endo Endo: Negative for fatigue, excessive sweating, cold intolerance, heat intolerance, increased thirst/drinking or hair loss Psych Psych: Negative for anxiety or depression Allergy Allergy/Immunology: Negative for throat swelling, Negative for tongue swelling, Negative for hives, Negative for rash, Negative for lip swelling Cardiology Exam Const Appearance: cooperative, healthy appearing, well developed, well groomed and no acute distress Nutritional Appearance: well nourished and average body habitus Orientation: alert, awake and oriented x3 Head Head: normal to inspection, normocephalic and atraumatic Ears: hearing grossly normal bilaterally and external ears normal Nose: external nose normal, nasal mucous membranes and turbinates normal, nares normal, septum normal, no nasal discharge Face and Sinus: face symmetric Mouth: oral mucosae normal, tongue normal, oropharynx normal and moist mucous membranes Teeth and gingiva: dentition normal Throat: posterior oropharynx normal, tonsils normal and uvula midline Eyes General: appearance normal, both eyes and all related structures Eyelids: eyelids normal Conjunctivae: conjunctivae normal Pupils: PERRL, normal by confrontation and accommodation normal EOM: EOM intact bilaterally Neck Neck: normal visual inspection, trachea midline and no JVD JVD: +5 Carotids: normal carotid upstroke and bounding pulses Chest Chest inspection: normal inspection of the chest, symmetric chest movement and normal respiratory effort Auscultation: Bilateral: Clear to Auscultation Cardio Palpation: normal PMI Rate: regular rate Rhythm: regular rhythm Heart sounds: S1 normal, S2 normal and normal, physiologic split S2; negative rub, gallop or murmur GI GI: normal to inspection, soft, no hepatosplenomegaly and bowel sounds present Neuro General: alert, awake, oriented x3, no focal sensory deficit, gait normal and moves all extremities Skin Skin: no rashes or lesions noted Extremities Pulses: Normal: Right Femoral Pulse, Left Femoral Pulse, Right Dorsalis Pedis Pulse, Left Dorsalis Pedis Pulse, Right Posterior Tibial Pulse, Left Posterior Tibial Pulse, Right Radial Pulse, Left Radial Pulse Lower Extremity Edema: None: Bilateral Musculoskel Musculoskeletal: No joint tenderness Psych Psychological: normal affect Assessment AND Plan 1. NSTEMI (non-ST elevated myocardial infarction) I21.4 Plan Patient is status post non-ST elevation myocardial infarction with angioplasty and stenting of the left anterior descending artery as well as the right coronary artery. She continues to do well from the cardiovascular standpoint at this time I would not suggest that we make any changes. As noted before after October to be safe to discontinue her Plavix temporarily to have any hip surgery if need be. 2. Essential hypertension I10 Plan Her blood pressure appears to be under excellent control now that she is resumed her lisinopril and my recommendation was for her to continue the same without making any changes. She will also continue on her 20 mg of Lasix. Metoprolol will also be continued. 3. Mixed hyperlipidemia E78.2 Plan We will continue with aggressive risk factor modification. She remains on the rosuvastatin. Thank you for allowing me to participate in the care of your patient. Please don't hesitate to call if any issues arise Plan Detail Other Medications New: Refilled: Discontinued: oxycodone Discontinued Reason: P15 mg (3 x 5 mg) PO Q4H PRN 3 days PM87.052 Kathy Fisher t no longer taking RN Mod-Severe Pain (-01/06) fentanyl Place patch in 72 hours 25 mcg TRANSDERM. Q3D 3 days M87.051 Kathy Fisher as recent patch placed 07/21/17 AM. Discontinued Reason: Pt no longer taking Follow Up 6 Months (mmm) Coding Level of Care Code Off vis,est,level 4 Diagnoses NSTEMI (non-ST elevated myocardial infarction) I21.4 Essential hypertension I10 Hypertension type: essential hypertension Mixed hyperlipidemia E78.2 Hyperlipidemia type: mixed hyperlipidemia Coding Level of Care Code Off vis,est,level 4 Diagnoses NSTEMI (non-ST elevated myocardial infarction) I21.4 Essential hypertension I10 Hypertension type: essential hypertension Mixed hyperlipidemia E78.2 Hyperlipidemia type: mixed hyperlipidemia 09/17/17 1549 <Electronically signed by Ulises Vareal MD> Date Ulises Varela MD Cosigner Signature: Date (if applicable) CC: Elayne Vickers MD DOWNTIME REPORT Observed: 09/17/2017 Status: F Source: MIKLA 11:45 AM [facility] REPOSITORY [facility] Medical Records Department [address] [place] [address] Downtime Report MR#: [id number] Acct: [id number] Name: JOHANA YBARRA Rep #: [id number] : 1960 57 From: Wing Baker PCP: Elayne Vickers MD Status: REG RCR This patient was seen during an EMR downtime August 31, 2017 - September 07, 2017. This patient may have a combination of paper and electronic documentation or all paper documentation. All documentation is viewable within the e-chart portion of aWhere for each patient visit. RE-EVALUATION - PT (1) Observed: 09/10/2017 Status: F Source: [place] 3:56 PM [facility] REPOSITORY [facility] Physical Therapy [facility] [address] [place] [address] Fax REEVALUATION / MEDICARE RECERTIFICATION PHYSICAL THERAPY MR#: [id number] Acct: [id number] Name: JOHANA YBARRA Rep #: [id number] : 1960 57 From: Viraj Ornelas DPT, OCS, CSCS Referring Dr.: Ronal Nascimento DO Status: REG RCR Insurance: [facility] SELF PAY INSURANCE Ronal Nascimento, DO, It has been my pleasure to treat JOHANA YBARRA over the last 8 visits for R LBP and hip pain. Please see the progress note below for an update on the physical therapy plan of care! Subjective: Has helped a little. Walking better. Still painful lat right hip to knee, Had knee injection this morning. 9/10 hip pain all the time. Lying it might be 7/10. Overall 20% better. Using wh walker all the time, Will have ENRIQUE in November after off plavix long enough. No pain in water. Better after water ex for a full day. Can't join pool due to finances. Body did not tolerate WB ex in past. Objective/Function: ROM R hip painful but WFL. strength at 4-/5 but hurts to contract all hip mm. Needs wh walker to ambulate. Cannot WB L without AD. Pt needs ENRIQUE but cannot until November due to plavix from heart. In a tough situation and appropriate to continue to progress water ex. Plan Plan: 2x/week x 4 weeks for continued aquatic progression to same goals(not available today due to EMR downtime) and increase WB tlerance L LE. Try to teach some home clamshells/hip strength if possible. Goals Goal 1:: Pain down to 2/10 at worst adn intermittent reporting 75% improvement in condition. Goal Time Frame: 4-6 Weeks Goal 2:: Walk without increased pain 250 feet with LRAD Goal Time Frame: 4-6 Weeks Goal 3:: I approp HEP to minimize future problems and get patient max function to her ENRIQUE. Goal Time Frame: 4-6 Weeks Anticipated Interventions Patient/Client Instruction: Educate patient on: Condition, Plan of Care For the Purpose of:: To decrease pain, To improve ability of physical actions for home/community/work/leisure, To improve gait and locomotor functions Therapeutic Exercise to Include: Strength training, Flexibilty training, Gait and locomotor training, In an aquatic setting, Passive ROM, Active ROM For the Purpose of:: To decrease pain, To increase ROM, To improve nutrient delivery to tissue, To improve ability of physical actions for home/community/work/leisure, To improve gait and locomotor functions, To improve health of tissue Manual Therapy Techniques to Include: Soft tissue mobilization For the Purpose of:: To decrease pain, To improve nutrient delivery to tissue TENS: Yes Cryotherapy (ice pack, ice massage): Yes For the Purpose of:: To decrease pain Please do not hesitate to contact me at [phone] by phone or if you have questions or concerns regarding this new plan of care! Sincerely, Viraj Ornelas, DPT, OC <Electronically signed by Viraj JAEGERT, OCS, CSCS> 09/10/17 9046 CC: Ronal Nascimento DO; Elayne Vickers MD EBG Signed For Medicare only, by signing this I certify the plan of care. Physicians Signature Date 12 LEAD ELECTROCARDIOGRAM Observed: 08/14/2017 Status: F Source: MIKAL 1:31 PM [facility] REPOSITORY [facility] Cardiovascular Services [address] [place] [address] 12 Lead EKG 08/12/17 1328 MR#: [id number] Acct: [id number] Name: JOHANA YBARRA Rep #: [id number] : 1960 57 From: Ulises Varela MD Attending Dr: Status: DEP ER Ordering Dr: Leilani Tanner Date: 08/12/17 Location: ED Sex: F C Admitted: Test Reason : NEURO Blood Pressure : / mmHG Vent. Rate : 083 BPM Atrial Rate : 083 BPM P-R Int : 130 ms QRS Dur : 084 ms QT Int : 368 ms P-R-T Axes : 012 007 036 degrees QTc Int : 432 ms Normal sinus rhythm Low voltage QRS Borderline ECG Confirmed by AVERY MICHAEL, ULISES ([id number]), web content editor SNACHO BAKER ([id number]) on 08/14/2017 1:31:10 PM Referred By: Ronal Nascimento Confirmed By:ULISES VARELA MD 08/14/17 1331 Date Ulises Varela MD CC: Leilani Tanner; Elayne Vickers MD; OUT OF TOWN DOCTOR Signed EMERGENCY DEPARTMENT Observed: 08/12/2017 Status: F Source: [place] SUMMARY 5:08 PM [facility] REPOSITORY [facility] Medical Records Department [address] [place] [address] Emergency Department Summary 08/12/17 1635 MR#: [id number] Acct: [id number] Name: JOHANA YBARRA Ari Rep #: [id number] : 1960 57 From: Leilani Tanner PCP: Elayne Vickers MD Status: REG ER ADDENDUM by Feliz Stanley MD on 08/12/17 at 1708 Patient turned over to me to check CTA. It was negative. She is not in distress. Looks well. Requesting DC home. Date Jae Stanley MD cc: Elayne Vickers MD; OUT OF TOWN DOCTOR * Signed - ER Visit Summary Date of Service: 08/12/17 Chief Complaint: [Near syncope] History of Present Illness: The patient is a 57 F [resents the emergency department with near syncope. It lasted approximately 5-10 minutes today. She states that she has had 2 episodes in the last week where she got tunnel vision dizziness numbness and did not feel right and lasted about 5-10 minutes and then resolved this happened a week ago and then again today. She has chronic right hip pain. She is on multiple medications for that. She had an ultrasound of her left lower extremity because of swelling a week ago which was normal. Patient's blood pressure normally does run low she is on multiple medications due to her coronary artery disease. She has not had any fevers chills dysuria abdominal pain nausea vomiting diarrhea or other symptoms.] Physical Examination: [] Pressure 66 systolic WN WD NAD PERRL EOMI MMM NECK supple and nontender, no masses RRR no murmur rub or gallop, mild edema of the left lower extremity, symmetric radial pulses symmetric DP pulses CTAB no respiratory distress ABDOMEN is soft and nontender, normal bowel sounds, no distension, no rebound or guarding SKIN is warm and dry no rashes Tenderness to palpation the right groin Alert and Oriented x3, CN II-XII in tact, no motor or sensory deficits, gait normal No lymphadenopathy Test Results: [] Emergency Department Course and Treatment: [Patient was given 2 L of fluid. Her blood pressure did improve. Screening labs were unremarkable except for mild increase in her kidney function from 1.3-1.75. Tox is positive for opiates only. Patient's d-dimer was elevated so CTA was obtained. I think the patient is likely got low blood pressure secondary to medications. I spoke with Dr. Crenshaw and provided that she has no evidence of PE we will cut her lisinopril to 5 mg and she will follow-up in the office in 1 week for blood pressure check. She understands reasons for which to return. Dr. Stanley follow-up on her CTA and if it is unremarkable she will be discharged home. Any abnormalities will be due addressed accordingly.] Treatment Plan: [] Disposition: [] Impression: [Hypotension] This note was generated with Isaiation software. It may contain incorrect words, spelling, and punctuation that were not noted in review of the chart prior to signing ED Disposition - Plan for ED Patient: Chief Complaint: Neuro S/Sx Referrals: Elayne Vickers MD [Primary Care Provider] - What to do if you have Problems For any increased pain, shortness of breath, bleeding, nausea or vomiting, chest pain, or any unexpected problems, contact your Primary Care Provider. Call [email or web address] ([phone]) or report to the closest Emergency Room. Call 911 if necessary. 08/12/17 1639 <Electronically signed by Leilani Tanner > Date Leilani Tanner Cosigner Signature (If Indicated): Date CC: Elayne Vickers MD; OUT OF TOWN DOCTOR DISCHARGE INSTRUCTION Observed: 08/12/2017 Status: F Source: [place] 4:40 PM [facility] REPOSITORY [facility] Medical Records Department [address] [place] [address] Discharge Instruction 08/12/171638 MR#: [id number] Acct: [id number] Name: JOHANA YBARRA Rep #: [id number] : 1960 57 From: Leilani Tanner PCP: Elayne Vickers MD Status: REG ER ED Disposition - Plan for ED Patient: Chief Complaint: Neuro S/Sx Instructions: ED Hypotension All Causes Prescriptions: Lisinopril [Zestril] 5 mg PO DAILY #30 tablet Referrals: Ulises Varela MD [STAFF PHYSICIAN] - 1 Week Additional Instructions: stop lisinopril 20mg start lisinopril 5mg daily What to do if you have Problems For any increased pain, shortness of breath, bleeding, nausea or vomiting, chest pain, or any unexpected problems, contact your Primary Care Provider. Call [email or web address] ([phone]) or report to the closest Emergency Room. Call 911 if necessary. 08/12/17 1640 <Electronically signed by Leilani Tanner > Date Leilani Flores Tate Signature (If Indicated): Date CC: Elayne Vickers MD; OUT OF TOWN DOCTOR CTA CHEST W/WO Observed: 08/12/2017 Status: F Source: MIKAL CONTRAST 3:13 PM [facility] REPOSITORY [facility] Imaging Services [address] [place] [address] CTA Chest W/WO Contrast MR#: [id number] Acct: [id number] Name: JOHANA YBARRA Rep #: [id number] : 1960 F 57 From: Robin Carlson DO PCP: Elayne Vickers MD Status: REG ER Study: CTA Chest W/WO Contrast Date of Exam: 08/12/17 Exam# [id number] Ordering Dr: Leilani Tanner STUDY: CTA CHEST REASON FOR EXAM: Female, 57 years old. Elevated d-dimer. RADIATION DOSAGE (If Supplied By Facility): CTDIvol = ( 16.50 ) mGy, DLP = ( 696.00 ) mGycm TECHNIQUE: The examination was performed with the intravenous administration of 100 ml of Isovue 370 contrast material. Post-processing of the angiographic images was performed, with multiplanar reformation and 3D reconstruction. Individualized dose optimization techniques were used for this CT. COMPARISON: CTA of the chest, November 16, 2016. FINDINGS: Normal enhancement of the main pulmonary artery and right and left pulmonary arteries. Normal enhancement of the bilateral peripheral pulmonary arteries. There is no demonstrated pulmonary embolism. There is atherosclerotic tortuosity of the thoracic aorta without aneurysm. There is no demonstrated aortic dissection. Normal heart and pericardium. 7 Normal mediastinum. Normal hilar regions. Normal visualized trachea and bronchi. The lungs are well expanded. There are minimal air trapping and emphysematous changes along the apices. Atelectatic changes at the lung bases. There is no focal mass or infiltrate. Normal pleura. Normal chest wall structures. There are degenerative changes of thoracic spine. There is marked distention of the stomach without other renal abnormality. CT/CTA Chest W/WO Contrast IMPRESSION: 1. No evidence of pulmonary embolus. 2. No aortic dissection or aneurysm. 3. Mild emphysematous changes in lungs stable when compared to prior study. 4. Mild bibasilar atelectasis. 5. Distended fluid-filled stomach. As appears similar to the previous study. Electronically Signed: Robin Carlson DO at 16:57 EDT Tel [phone], Service support , CC: Leilani Tanner; Elayne Vickers MD Knitter Helper: Signed URINE DRUG SCREEN Collected: 08/12/2017 Status: F Source: MIKAL (VISTA) 2:45 PM [facility] REPOSITORY Order Comment: Order Date: 08/12/17 Has pt arrived? Y TYPE CODE TESTS RESULT OUT OF RANGE REFERENCE UNITS LAB L505.0075 TO BE Normal CONFIRMED Result Comment: CONFIRMATORY TESTING FOR ALL POSITIVE URINE DRUG SCREEN RESULTS WILL ONLY BE SENT OUT UPON PHYSICIAN ORDER. VISTA Urine Drug Screen methods provide only preliminary analytical test results. A more specific alternate chemical method must be used in order to obtain a confirmed analytical result. Gas chromatography/mass spectrometery (GC/MS) is the preferred confirmatory method. Clinical consideration and professional judgement should be applied to any drug of abuse test result, particularly when preliminary positive results are used. URINE TCA TESTING MUST BE ORDERED SEPARATELY. USE TEST MNEMONIC: [facility] LAB L505.5005 VISTA UDS PH 6 Normal LAB L505.5015 <1000 ng/mL AMPHETAMINES Normal NEGATIVE LAB L505.5025 < 200 ng/mL BARBITIURATES Normal NEGATIVE LAB L505.5035 < 200 ng/mL BENZODIAZIPINE Normal NEGATIVE LAB L505.5045 < 300 ng/mL COCAINE Normal NEGATIVE LAB L505.5055 < 500 ng/mL ECSTACY Normal NEGATIVE LAB L505.5065 < 300 ng/mL METHADONE Normal NEGATIVE LAB L505.5075 < 300 High ng/mL OPIATES POSITIVE LAB L505.5085 < 25 ng/mL PCP Normal NEGATIVE LAB L505.5095 < 50 ng/mL THC Normal NEGATIVE Performed By: #### L505.5000 #### [facility] Laboratory [address] [place], [place], [address] URINALYSIS, COMPLETE Collected: 08/12/2017 Status: F Source: MIKAL 2:45 PM [facility] REPOSITORY Order Comment: Order Date: 08/12/17 Has pt arrived? Y How was Urine Obtained? CLEAN CATCH TYPE CODE TESTS RESULT OUT OF RANGE REFERENCE UNITS LAB L400.3000 Yellow COLOR Normal Yellow LAB L400.3050 Clear Normal CLARITY Clear LAB L400.3200 Normal mg/dl Normal GLUCOSE, UR Normal LAB L400.3300 Negative mg/dL Normal BILIRUBIN URINE Negative LAB L400.3400 Negative mg/dl Normal KETONE UR Negative LAB L400.3465 1.002-1.030 Normal SP.GR. DIPSTX 1.010 LAB L400.3550 5.0 - 8.0 pH UR Normal 6.5 LAB L400.3600 Negative mg/dl High PROT 15 DIPSTX LAB L400.3700 Normal mg/dl Normal UROBILI Normal LAB L400.3750 Negative Normal NITRITE UR Negative LAB L400.3780 Negative /ul Normal OCCULT BLOOD-UR Negative LAB L400.3800 Negative /ul LEUK Normal ESTERASE Negative LAB L400.4050 0-5 /hpf WBC 0 Normal SEEN LAB L400.4100 0-5 /hpf 0 Normal RBC-UA SEEN LAB L400.4150 5-10 /hpf SQUAM Normal EPI 5-10 SEEN LAB L400.4300 None Seen /hpf 0 Normal BACTERIA SEEN LAB L400.4350 <or=2+ /hpf 0 Normal MUCUS, URINE SEEN Performed By: #### L400.0001 #### [facility] Laboratory [address], [address] Observed: 08/12/2017 Status: F Source: MIKAL CULTURE, URINE 2:45 PM [facility] REPOSITORY Order Date: 08/12/17 Has pt arrived? Y Urine Culture Below infection level. ORGANISM 1: Mixed Gram Positive Organisms [place]land Count 1000-10,000 Performed By: #### M100.0650 #### [facility] [place], [address] Observed: 08/12/2017 Status: F Source: MIKAL CULTURE, BLOOD (WB) 1:41 PM [facility] REPOSITORY BC No growth in 5 days. Performed By: #### M200.1000 #### [facility] Laboratory [address] [place] [address] [place], [place], [id number] LACTIC ACID Collected: 08/12/2017 Status: F Source: [place]KAL 1:20 PM [facility] REPOSITORY Order Comment: Yes/No query for Sepsis Lactate Rule Y TYPE CODE TESTS RESULT OUT OF RANGE REFERENCE UNITS LAB L503.6005 0.4-2.0 mmol/L Normal LACTIC ACID 1.8 Performed By: #### L503.6005 #### [facility] Laboratory [address] [place] [address] [place], [address] Observed: 08/12/2017 Status: F Source: MIKAL CULTURE, BLOOD (WB) 1:20 PM [facility] REPOSITORY BC No growth in 5 days. Performed By: #### M200.1000 #### [facility] Laboratory [facility] [address] [place], [place], [address] BRAIN/HEAD WITHOUT Observed: 08/12/2017 Status: F Source: [place] CONTRAST 1:04 PM [facility] REPOSITORY [facility] Imaging Services [address] [place], [place] [address] [address] Brain/Head without Contrast MR#: [id number] Acct: [id number] Name: JOHANA YBARRA Rep #: [id number] : 1960 F 57 From: Bon Valentin MD PCP: Elayne Vickers MD Status: REG ER Study: Brain/Head without Contrast Date of Exam: 08/12/17 Exam# [id number] Ordering Dr: Leilani Tanner STUDY: CT BRAIN WITHOUT CONTRAST REASON FOR EXAM: Female, 57 years old. Dizziness. Numbness of the left lower extremity. RADIATION DOSAGE (If Supplied By Facility): CTDIvol = ( 44.99 ) mGy, DLP = ( 745.49 ) mGycm TECHNIQUE: Transaxial CT imaging of the brain was performed without administration of intravenous contrast material. Individualized dose optimization techniques were used for this CT. COMPARISON: Comparison is made with prior study dated November 15, 2016. FINDINGS: Normal soft tissue structures. Normal calvarium. Normal size ventricles and extra-axial spaces for the patient's age. Normal white matter tracts of the cerebral hemispheres. There are small punctate calcifications of the basal ganglia which are seen in the aging brain as a normal variant. Normal brainstem. Normal cerebellum. There is no intracranial hemorrhage. There are no findings of an acute ischemic infarction. Atherosclerotic calcification of the cavernous portions of the internal carotid arteries bilaterally. Normal visualized paranasal sinuses. CT/Brain/Head without Contrast IMPRESSION: No acute abnormality is seen. Electronically Signed: Bon Valentin MD at 14:14 EDT Tel [phone], Service support , CC: Leilani Tanner; Elayne Vickers MD Knitter Helper: Signed CBC-COMPLETE BLOOD CNT Collected: 08/12/2017 Status: F Source: MIKAL NO DIFF 1:03 PM [facility] REPOSITORY TYPE CODE TESTS RESULT OUT OF RANGE REFERENCE UNITS LAB L100.1000 4.4-11.0 K/mm3 Normal WBC 11.0 LAB L100.1200 4.2-5.4 M/mm3 Normal RBC 4.57 LAB L100.1300 12.0-15.0 g/dl Normal HGB 12.7 LAB L100.1400 37-47 % Normal HCT 40.9 LAB L100.1500 81-99 fL Normal MCV 89.5 LAB L100.1600 27.0-32.0 pg Normal MCH 27.8 LAB L100.1700 32-36 g/gl Low MCHC 31.1 LAB L100.1810 11.6-14.6 % High RDW CV 15.5 LAB L100.1820 35.1-43.9 fl High RDW SD 50.0 LAB L100.1900 150-450 K/mm3 Normal PLT 303 LAB L100.2000 6.2-12.0 fl Normal MPV 10.7 Performed By: #### L100.0500 #### [facility] Laboratory [address] [place], [address] PROTHROMBIN TIME W/INR Collected: 08/12/2017 Status: F Source: MIKAL 1:03 PM [facility] REPOSITORY TYPE CODE TESTS RESULT OUT OF RANGE REFERENCE UNITS LAB L300.4150 11.7-14.9 SECONDS Normal PROTIME 13.2 LAB L300.4200 Normal INR 1.0 Performed By: #### L300.3900, L300.8000 #### [facility] Laboratory [address] [place], [address] D-DIMER QUANTITATIVE Collected: 08/12/2017 Status: F Source: [place]KAL (DVT/PE) 1:03 PM [facility] REPOSITORY TYPE CODE TESTS RESULT OUT OF RANGE REFERENCE UNITS LAB L300.8000 0.27-0.49 FEU/ug/m High alert D-DIMER 1.90 QUANT Result Comment: D-Dimer ELEVATED (>0.49): Additional studies and clinical assessments are indicated to conclude diagnosis of: Deep Vein Thrombosis (DVT) or Pulmonary Embolism (PE) CRITICAL VALUE VERIFIED. CALLED TO MAMADOU SMITH 08/12/17 1340 Fadumo Balbuena. RESULTS READ BACK BY SAME . Performed By: #### L300.3900, L300.8000 #### [facility] Laboratory [address] [place], [place], [address] COMPREHENSIVE METABOLIC Collected: 08/12/2017 Status: F Source: [place] PROFIL 1:03 PM [facility] REPOSITORY TYPE CODE TESTS RESULT OUT OF RANGE REFERENCE UNITS LAB L501.0100 74-106 mg/dL High GLU 114 Result Comment: Fasting Glucose result from 100 to 125 mg/dL suggests IMPAIRED HOMEOSTASIS per A.D.A. criteria. Please note revised GLUCOSE reference range effective 2017. LAB L501.1000 7-18 mg/dL High BUN 26 LAB L501.1100 0.55-1.02 mg/dL High CREAT,SERUM 1.75 Result Comment: The validity of the calculated GFR AND GFRAA in patients over 70 years has not been determined. Clinical correlation is essential. LAB L501.1110 >60 mL/min Low EST GFR 32 Result Comment: Non- GFR Calc LAB L501.1115 >60 mL/min Low EST GFR - AA 39 Result Comment: GFR Calc LAB L501.1255 ml/min Normal Estimated CRCL 31.00 LAB L501.1300 10-20 RATIO Normal BUN/CRE 14.9 LAB L501.1500 6.4-8. g/dL Normal 2 T PROT 7.7 LAB L501.1800 3.2-5. g/dL Normal 0 ALB 3.3 LAB L501.1950 2.2-4. g/dL High 2 GLOB 4.4 LAB L501.2000 0.9-2. RATIO Low 4 A/G 0.8 LAB L501.2200 8.5-10 mg/dL Normal .1 CA 9.2 LAB L501.4100 15-37 U/L Low AST 13 LAB L501.4305 45-117 U/L High ALK P 122 LAB L501.4405 13-56 U/L Normal ALT 15 LAB L501.4600 0.20-1 mg/dL Normal .00 T BILI 0.20 LAB L501.5300 136-14 mmol/L Normal 5 NA 140 LAB L501.5600 3.5-5. mmol/L Normal 1 K 3.8 LAB L501.5900 98-107 mmol/L Normal CL 103 LAB L501.6100 21.0-3 mmol/L Normal 2.0 CO2 28.0 LAB L501.6200 5-15 Normal GAP 9 Performed By: #### L500.4050, L501.2450, L501.4010 #### [facility] Laboratory [address] [place], [place], [address] LIPASE Collected: 08/12/2017 Status: F Source: MIKAL 1:03 PM [facility] REPOSITORY TYPE CODE TESTS RESULT OUT OF RANGE REFERENCE UNITS LAB L501.2450 73-393 U/L Normal LIPASE 135 Performed By: #### L500.4050, L501.2450, L501.4010 #### [facility] Laboratory [address] [place], [address] TROPONIN-I Collected: 08/12/2017 Status: F Source: MIKAL 1:03 PM [facility] REPOSITORY TYPE CODE TESTS RESULT OUT OF RANGE REFERENCE UNITS LAB L501.4010 <0.045 ng/mL Normal < 0.015 TROPONIN-I Result Comment: TROPONIN-I EXPECTED VALUES <0.045 Negative 0.045 - 0.590 Consistent with Cardiac Damage > OR = 0.600 Critical Value Not every elevated troponin is indicative of TX. These values should be used with clinical judgement in examining the patient's clinical picture for diagnosis. To establish a diagnosis of TX versus myocardial injury, there must be a demonstrated rise and/or fall in the troponin values, in addition to ischemic symptoms, EKG changes, new regional wall motion abnormality, and/or angiographical evidence. PLEASE NOTE: REFERENCE RANGES EDITED 17 Performed By: #### L500.4050, L501.2450, L501.4010 #### [facility] Laboratory [address] [place], [address] ALCOHOL, BLOOD Collected: 08/12/2017 Status: F Source: MIKAL (MEDICAL)-SERUM 1:03 PM [facility] REPOSITORY TYPE CODE TESTS RESULT OUT OF RANGE REFERENCE UNITS LAB L501.9100 mg/dL Normal SERUM < 3.0 ETOH Result Comment: The serum:whole blood ethanol ratio is approximately 1.14 and varies slightly with hematocrit. Medical Alcohol reference interval and critical value in non-tolerant individuals; 50 - 100 Impairment 100 Intoxication 100 - 250 Severe Poisoning 250 - 400 Deep/possible fatal coma Performed By: #### L501.9100 #### [facility] Laboratory [address] [place], [place], [address] BEDSIDE GLUCOSE Collected: 08/12/2017 Status: F Source: MIKAL 12:30 PM [facility] REPOSITORY TYPE CODE TESTS RESULT OUT OF REFERENCE UNITS RANGE LAB L501.080 70-110 mg/dL High BEDSIDE GLU 168 Result Comment: MANAGEMENT OF PATIENT CARE PER NURSING PROTOCOL Performed By: #### L501.080 #### [facility] Laboratory Point of Care [address] [place] [address] INITAL EVALUATION (1) Observed: 08/06/2017 Status: F Source: [place] - PT 9:30 AM [facility] REPOSITORY [facility] Physical Therapy [facility] [address] [place] [address] Fax REHABILITATION SERVICES INITIAL EVALUATION MR#: [id number] Acct: [id number] Name: JOHANA YBARRA Rep #: [id number] : 1960 57 From: Viraj Ornelas DPT, OCS, CSCS Referring Dr.: Ronal Nascimento DO Status: REG RCR Insurance: [facility] Patient's Visit Information JOHANA YBARRA is a 57 year old F referred to Physical Therapy by Ronal Nascimento DO with a diagnosis of R LBP and hip pain. Date of Evaluation: 08/05/17 Physical Therapist: Viraj Ornelas DPT, OC - Visit Plan Frequency: 2-3x /Week Duration: 4-6 Weeks Plan: 2-3x/week for pool based R hip and LB ROM, gait and R hip stretching and general strength focussing R hip and core as pain allows. May bridge gap to busy pool schedule with land PT for R hip PROm and mobs and ES with ice. rollout to leg muscles. - Subjective Subjective: R hip pain and knee pain. Has hurt since December for no apparent reason. See [facility] for pain management in back and has done nerve blocks on back. Was sent to Dr Antunez at that time and then R hip started to hurt. May have started after visiting mom in hospital. was pretty active prior to that. She has been less active [facility] In October. Dr ANTUNEZ could not evaluate back due to hip pain. Was sent to Dr. Armenta by Dr Antunez for hip pain and had x ray and said it was OK. Was sent for PT but could not make it. Also was in [facility] rehab as she had two stents placed at that time last year. Dr. Armenta thought hip pain may come from back as it is lateral. Then got MRI of back in April and symptoms in leg did nto match up with back. Ordered nerve conduction study which she should have had two weeks ago but could not go due to increasing hip pain. Went to ER and did scan of hip and has avascualr necrosis. Wanted to do immediate ENRIQUE but on plavix due to stents last year and can not get off plavix for a year due to stents. Needs to wait for ENRIQUE until November. Has HNP in LB and H/O laminectomy and spodylosis and will need to have it cleaned out on R side. LBP starts in R LB and also hurts in R lateral hip and down quad to knee. Needs walker to ambulate as legs gave out. Walked without AD end of last December. Sleep is OK with pain meds which will change soon. Is getting 3-4 hours at a time but wakes up to take pain meds. Spends day lying on couch. Increased activity makes her worse. Dresses self, lives with aunt who cooks and cleans. Has walk in shower that she uses I in shower chair. Not employed. If she was healthy she would like to [place], fish and watch baseball games. Both feet and hands swelled up a week ago, much better now except L ankle which has a history of hardware needing to be placed. Dr. Varela did not think it was cardiac in nature. - Pain R LB Pain Intensity (Out of 10): 8 Pain Intensity Range: 4, 8 R lateral leg Pain Intensity (Out of 10): 10 Pain Intensity Range: 10 Comment: been that like that since december - Objective Walks very laborious and painful with walker back to 150 feet eval room, slow, very painful, hunched over and R antalgia. unable to functionally walk without AD. Trasnfers slow but I to and fro sit and supine, painful transfers. Keeps weight off of R hip when sitting and standing. can stand withotu AD btu avoids R WB. reflexes 2/3 in patella and achilels. Sensation diminished in R foot(old injury) to gross light touch. Strenght L LE 4/5 hip knee and ankle with good ROM. R ankle is full ROM but hurts in R hip to MMT. Knee strength 3+/5 R limited due to pain. R hip ROM painful to move at all and crying so MMT not performed with any accuracy. LB ROM Very little movement in sagittal plane, frontal plane slightly better L than R. PROm not tolerated on R bhip. - Goals Goal 1:: Pain down to 2/10 at worst adn intermittent reporting 75% improvement in condition. Goal Time Frame: 4-6 Weeks Goal 2:: Walk without increased pain 250 feet with LRAD Goal Time Frame: 4-6 Weeks Goal 3:: I approp HEP to minimize future problems and get patient max function to her ENRIQUE. 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 Rehabilitation Potential: Fair - Anticipated Interventions Patient/Client Instruction: Educate patient on: Condition, Plan of Care For the Purpose of:: To decrease pain, To improve ability of physical actions for home/community/work/leisure, To improve gait and locomotor functions Therapeutic Exercise to Include: Strength training, Flexibilty training, Gait and locomotor training, In an aquatic setting, Passive ROM, Active ROM For the Purpose of:: To decrease pain, To increase ROM, To improve nutrient delivery to tissue, To improve ability of physical actions for home/community/work/leisure, To improve gait and locomotor functions, To improve health of tissue Manual Therapy Techniques to Include: Soft tissue mobilization For the Purpose of:: To decrease pain, To improve nutrient delivery to tissue TENS: Yes Cryotherapy (ice pack, ice massage): Yes For the Purpose of:: To decrease pain Thank you for the opportunity to evaluate your patient. For Medicare and Medicare HMO plans, please review the plan of care and approve it. It will need to be FAXED BACK to us at [phone] for Medicare purposes. Please let me know if there are questions or concerns regarding this plan of care. Physician Signature: Date: <Electronically signed by Viraj JAEGERT, OCS, CSCS> 08/06/17 0930 CC: Ronal Nascimento DO; Elayne Vickers MD EBG Signed For Medicare only, by signing this I certify the plan of care. Physicians Signature Date VENOUS DUPLEX LOWER Observed: 08/04/2017 Status: F Source: [place] EXTREMITY 8:35 PM [facility] REPOSITORY [facility] Cardiovascular Services [address] [address] Venous Duplex - Santi Extrem 08/03/17 1610 MR#: [id number] Acct: [id number] Name: JOHANA YBARRA Rep #: [id number] : 1960 57 From: Antonio Walker MD Attending Dr: Mackenzie Rogers MD Status: REG CLI Ordering Dr: Mackenzie Rogers MD Date: 08/03/17 Location: [facility] Sex: F C Admitted: Reason For Study: Swelling RIGHT LEFT GSV is normal. GSV is normal. CFV is compressible, spontaneous, phasic, CFV is compressible, spontaneous, phasic, competent and demonstrates normal competent, and demonstrates normal augmentation. augmentation. FV is compressible, spontaneous, phasic, FV is compressible, spontaneous, phasic, competent and demonstrates normal competent and demonstrates normal augmentation. augmentation. POP V is compressible, spontaneous, phasic, POP V is compressible, spontaneous, phasic, competent and demonstrates normal competent and demonstrates normal augmentation. augmentation. T/P Trunk is compressible. T/P Trunk is compressible. PTV is compressible. PTV is compressible. RT PerV is compressible. LT PerV is compressible. Procedure Exam performed in department. A preliminary report was called and/or faxed to Dr. Rogers. Interpretation Summary Deep veins of the lower extremities are bilaterally patent and compressible segmentally. There is no evidence of deep vein thrombosis on either side. Valvular competence appears intact within the proximal deep venous systems bilaterally. The greater saphenous veins appear bilaterally patent and compressible segmentally. Ordering Physician: Mackenzie Rogers Referring Physician: Mackenzie Rogers Performed By: Lela Stallings, THIAGO, RVT 08/04/172034 Date Antonio Walker MD CC: Mackenzie Rogers MD; Elayne Vickers MD; OUT OF TOWN DOCTOR Date Dictated: 08/03/17 1610 Date Transcribed: 08/04/172034 Knitter Helper: Signed CONSULTATION Observed: 07/28/2017 Status: F Source: [place] 2:33 PM [facility] REPOSITORY [facility] Medical Records Department [address] [place] [address] Consultation 07/28/17 1427 MR#: [id number] Acct: [id number] Name: JOHANA YBARRA Rep #: [id number] : 1960 57 From: Ronal Nascimento DO PCP: OUT OF TOWN DOCTOR Status: DIS IN Y [id number] Reason for Consult Date of Consultation: 07/17/17 Reason for Consultation: right hip pain questionable fracture History of Present Illness: The patient is a 57 year old F that was admitted to the hospital under the hospitalist service because of severe right-sided hip pain and suspected femoral neck fracture. Patient previously saw Dr. Armenta in December for hip pain. X-rays at that time were negative. Patient had developed such severe pain in her hip and groin that she was unable to ambulate therefore she came to the ER. X-rays were obtained in the ER which revealed significant deformity to the femoral head and collapse of the femoral head. There was concern for a femoral neck fracture therefore she was admitted and orthopedics was consulted. This consultation was done on 07/17/2017 unfortunately the aWhere system was not functioning therefore his formal dictated consult is delayed. I did have a handwritten note in terms of my assessment and plan on the chart on that date. The following consultation does reflect my examination and thoughts on the date of the evaluation. Past Medical History Past Medical History (Chronic Problems): Chronic Problems (Last Reviewed 07/21/17 @ 14:54 by Ulises Varela MD) Atherosclerosis of [place] coronary artery of [place] heart without angina pectoris (Chronic) Tobacco abuse (Chronic) H/O laminectomy (Chronic) Hypertension (Chronic) Hyperlipidemia (Chronic) Low back pain (Chronic) Allergies adhesive Adverse Reaction (Verified 07/21/17 14:26) Other baclofen Adverse Reaction (Verified 07/21/17 14:26) LETHARGY Home Medications: Ambulatory Orders Medication Instructions Recorded Surgical History: herniorrhaphy, hysterectomy, - - laminectomy, left tib-fib fracture with open reduction secondary to trauma, coronary artery stents 2, left breast biopsy Psychiatric History: No pertinent psych hx SUSTAIN ENGINEER History: No pertinent SUSTAIN ENGINEER history Lives: With Family Smoking Status: Current every day smoker Tobacco Use: Cigarettes Alcohol: Occasional Drugs: None - *Family History Maternal History Items: Diabetes Paternal History Items: Hypertension Review of Systems Constitutional: Denies: Chills, Fever, Weight Change HEENT: Denies: Head Aches, Sinus Congestion, Sinus Drainage Cardiovascular: Denies: Chest Pain, Palpitations Respiratory: Denies: Cough, Shortness of breath at rest, Sputum production Gastrointestinal: Denies: Abdominal Pain, Nausea, Vomiting Genitourinary: Denies: Dysuria Musculoskeletal: Reports: - - See history of present illness Skin: Denies: Rash, Wounds Neurological: Denies: Numbness, Tingling, Focal weakness - Physical Exam General: Alert, Oriented x3, Cooperative HEENT: Atraumatic, Normocephalic Neck: Supple, No JVD Lungs: Normal air movement Cardiovascular: Regular rate Abdomen: Soft, Non Tender Musculoskeletal: - - Patient has severe pain with any type of movement of the right hip. External rotation is 30 internal rotation 0. Flexion 90 . Logroll is positive for pain. She is able to ambulate with assistance of a walker and protected weightbearing. 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 Also reviewed x-rays obtained from December 2016. Patient did not have any evidence of avascular necrosis in December. She has since that time developed severe collapse of the femoral head. MRI reveals evidence of avascular necrosis. Patient will require a total hip arthroplasty however given the fact that she recently had stents placed in October and unable to be taken off of Plavix she will have to have this delayed and will treat the patient symptomatically until such time cardiology feels that she is safe to be off of her Plavix. Dr. Rogers has been consulted to help with her pain control. Unfortunately this should be done in an elective fashion and not in an urgent fashion in order to decrease risk of complications. I did discuss this with the patient at length and she does express an understanding of this with me. She was instructed to follow-up in my office next week 07/28/17 6497 <Electronically signed by Ronal Nascimento DO> Date Ronal Nascimento DO Cosigner Signature (if applicable): Date CC: Mackenzie Rogers MD; Ronal Nascimento DO; OUT OF TOWN DOCTOR Signed CARDIOLOGY VISIT Observed: 07/21/2017 Status: F Source: [place] REPORT 3:01 PM [facility] REPOSITORY [facility] [address] [place] [address]. [address] [place] [address] OFFICE VISIT Date of Service: 07/21/17 MR#: [id number] Acct: [id number] Name: DEMOND YBARRASTEVO Chapman Rep #: [id number] : 1960 Provider: Ulises Varela MD Age/Sex: 57/F [place] [facility] [place]: Signed HPI HPI Chief Complaint: Preoperative cardiac evaluation. Details: JOHANA YBRARA, is a 57 F who presents to the office today for a preoperative visit. She is a lady who had presented with a syncopal episode developed non-ST elevation myocardial infarction underwent a cardiac catheterization with demonstrated severe two-vessel disease. There was a 95% mid segment right coronary artery lesion and a proximal 90% left anterior descending artery lesion and a mid 70% stenosis. She underwent angioplasty and stenting with a 3.0 15 mm resolute integrity stent in the mid right coronary artery as well as a 3.0 9 mm stent in the left anterior descending artery. The diagonal vessel was also dilated with a 2.0 mm balloon. She has denied any chest pain or shortness of breath except with anxiety no paroxysmal nocturnal dyspnea pedal edema she tells me that she has been having some hip problems and more recently was noted to have fractured her hip and she was told to come for cardiac clearance though this is not an emergency she has also received pain medication as well as injections. Her physical exam today demonstrates clear lung prasad regular rate and rhythm and no pedal edema her electric cardiogram demonstrates normal sinus rhythm with a rate of 80 bpm and no acute changes. Intake Vital Signs07/21/17 Height 5 ft 5 in 07/21/17 Weight: 190 lb 07/21/17 Body Mass Index (BMI) 31.6 07/21/17 Blood Pressure 102/60 Intake Visit Reasons: pre-op for R hip w/Dr Nascimento Allergies adhesive Adverse Reaction (Verified 07/21/17 14:26) Other baclofen Adverse Reaction (Verified 07/21/17 14:26) LETHARGY Medications Furosemide [Lasix] 20 mg PO DAILY 09/16/16 [History Confirmed 07/21/17] Lisinopril [Zestril] 20 mg PO DAILY 09/16/16 [History Confirmed 07/21/17] traZODone [Desyrel] 200 mg PO QHS 09/16/16 [History Confirmed 07/21/17] Aspirin [Aspirin, Baby] 81 mg PO DAILY@0800 tab.chew 11/18/16 [Rx Confirmed 07/21/17] Clopidogrel Bisulfate [Plavix] 75 mg PO DAILY 30 Days tab 11/18/16 [Rx Confirmed 07/21/17] Tizanidine HCl [Zanaflex] 4 mg PO TID 11/25/16 [History Confirmed 07/21/17] DiphenhydrAMINE [Benadryl] 50 mg PO QHS 01/15/17 [History Confirmed 07/21/17] gabapentin 400 mg capsule 800 mg PO 4X/DAY 03/18/17 [History Confirmed 07/21/17] metoprolol tartrate 25 mg tablet 25 mg PO BID 60 Days #60 tab 05/25/17 [Rx Confirmed 07/21/17] rosuvastatin 40 mg tablet 40 mg PO DAILY 30 Days #30 tab 05/25/17 [Rx Confirmed 07/21/17] Oxycodone [Oxyir] 15 mg PO Q4H PRN PRN 3 Days #50 tab 07/21/17 [Rx Confirmed 07/21/17] Senna/Docusate Sodium [Senokot-S] 2 tab PO DAILY #60 tab 07/21/17 [Rx Confirmed 07/21/17] fentaNYL patch [Duragesic patch] 25 mcg TRANSDERM. Q3D 3 Days #1 patch 07/21/17 [Rx Confirmed 07/21/17] PFSH Medical History Atherosclerosis of [place] coronary artery of [place] heart without angina pectoris (Chronic) Tobacco abuse (Chronic) Syncope and collapse (Resolved) LOVE (acute kidney injury) (Acute) NSTEMI (non-ST elevated myocardial infarction) (Acute) Hypertension (Chronic) Hyperlipidemia (Chronic) Low back pain (Chronic) Surgical History H/O laminectomy (Chronic) History of left heart catheterization (Chronic) Hx of bone graft (Chronic 2014) S/P ORIF (open reduction internal fixation) fracture (Chronic) Family History Father Hypertension Mother Hypertension Social History Smoking Status: Current every day smoker alcohol intake: current alcohol intake frequency: a few times a week Alcohol type: hard liquor substance use type: does not use caffeine: Yes Type: coffee, carbonated beverages what type of physical activity do you participate in: none seatbelt use: always do you feel safe at home: Yes ROS Const Const: Negative for fatigue, weakness, weight gain, weight loss, frequent falls or excessive sweating Eyes Eyes: Negative for change in vision, blurry vision or transient loss of vision ENT ENT: Negative for dizziness or balance problems Cardio Chest Pain: No Palpitations: Yes (occasional, when having amxiety) feels like its: irregular Edema: None Muscle aches with walking: None Resp Respiratory: Positive for SOB with activity (related to Rt Hip pain); negative for SOB at rest GI GI: Negative vomiting or vomiting blood/hematemesis : Negative for hematuria Musc Musc: Positive for joint pain (Rt hip pain) and muscle aches/ myalgia (Rt hip pain); negative for balance problems or muscle weakness Skin Skin: Negative non-healing lesions or rash Neuro Neuro: Negative for weakness, blurry vision, dizziness, lightheadedness, frequent falls or orthostatic symptoms Simon Hematologic/Lymphatic: Negative for easy bleeding Endo Endo: Negative for fatigue or excessive sweating Psych Psych: Negative for anxiety or depression Allergy Allergy/Immunology: Negative for hives, Negative for rash Cardiology Exam Const Appearance: cooperative, healthy appearing, well developed, well groomed and no acute distress Nutritional Appearance: well nourished and average body habitus Orientation: alert, awake and oriented x3 Head Head: normal to inspection, normocephalic and atraumatic Ears: hearing grossly normal bilaterally and external ears normal Nose: external nose normal, nasal mucous membranes and turbinates normal, nares normal, septum normal, no nasal discharge Face and Sinus: face symmetric Mouth: oral mucosae normal, tongue normal, oropharynx normal and moist mucous membranes Teeth and gingiva: dentition normal Throat: posterior oropharynx normal, tonsils normal and uvula midline Eyes General: appearance normal, both eyes and all related structures Eyelids: eyelids normal Conjunctivae: conjunctivae normal Pupils: PERRL, normal by confrontation and accommodation normal EOM: EOM intact bilaterally Neck Neck: normal visual inspection, trachea midline and no JVD JVD: +5 Carotids: normal carotid upstroke and bounding pulses Chest Chest inspection: normal inspection of the chest, symmetric chest movement and normal respiratory effort Auscultation: Bilateral: Clear to Auscultation Cardio Palpation: normal PMI Rate: regular rate Rhythm: regular rhythm Heart sounds: S1 normal, S2 normal and normal, physiologic split S2; negative rub, gallop or murmur GI GI: normal to inspection, soft, no hepatosplenomegaly and bowel sounds present Neuro General: alert, awake, oriented x3, no focal sensory deficit, gait normal and moves all extremities Skin Skin: no rashes or lesions noted Extremities Pulses: Normal: Right Femoral Pulse, Left Femoral Pulse, Right Dorsalis Pedis Pulse, Left Dorsalis Pedis Pulse, Right Posterior Tibial Pulse, Left Posterior Tibial Pulse, Right Radial Pulse, Left Radial Pulse Lower Extremity Edema: None: Bilateral Musculoskel Musculoskeletal: No joint tenderness Psych Psychological: normal affect Assessment AND Plan 1. Preop cardiovascular exam Z01.810 Plan Ms. Fontanez presents for preoperative evaluation and at this time she has not been on antiplatelet therapy for close to a year. She did have significant two-vessel disease and I discussed with her as well as her relatives that we would need to be on antiplatelet medications for a minimum of a year before deciding to go off the medications and proceeding with surgery. I will have her see us again in the office in approximately 3 months and at that time a decision will be made. She should continue her other medications in the meantime. I do not think that she needs any preoperative testing prior to the above surgery unless there is a change in her symptomatology. 2. Essential hypertension I10 Plan Her blood pressure appears to be under good control on the current medical therapy on the MULUGETA inhibitor and beta-kusum and no changes will be made. Orders Orders: 3. Mixed hyperlipidemia E78.2 Plan She does remain on high intensity statin which will be continued and I recommend this go on as well up to and including the time of surgery. 4. Tobacco abuse Z72.0 Plan She had been using tobacco until approximately 5 days ago. She has been counseled to try and hold off on this habit as this would improve her chances of doing well at surgery. Thank you for allowing me to participate in the care of your patient. Please don't hesitate to call if any issues arise Plan Detail Other Orders Orders: Follow Up 3 Months (jhr) Coding Level of Care Code Off vis,est,level 4 Diagnoses Preop cardiovascular exam Z01.810 Essential hypertension I10 Hypertension type: essential hypertension Mixed hyperlipidemia E78.2 Hyperlipidemia type: mixed hyperlipidemia Tobacco abuse Z72.0 Coding Level of Care Code Off vis,est,level 4 Diagnoses Preop cardiovascular exam Z01.810 Essential hypertension I10 Hypertension type: essential hypertension Mixed hyperlipidemia E78.2 Hyperlipidemia type: mixed hyperlipidemia Tobacco abuse Z72.0 07/21/17 1501 <Electronically signed by Ulises Varela MD> Date Ulises Varela MD Cosigner Signature: Date (if applicable) CC: Ronal Nascimento DO 12 LEAD EKG PERFORMED Observed: 07/21/2017 Status: F Source: [place] [facility] 2:26 PM [facility] REPOSITORY [facility] [address] [place] [address] 12 Lead EKG performed by [facility] 07/21/171424 MR#: [id number] Acct: [id number] Name: JOHANA YBARRA Rep #: [id number] : 1960 57 From: Ulises Varela MD Attending Dr: Ulises Varela MD Status: DEP AMB Ordering Dr: Ulises Varela MD Date: 07/21/17 [place] [facility] [place]: F C Admitted: BMS/12 Lead EKG performed by [facility] ECG Report Interpretation Sinus Rhythm -Prominent R(V1) and left axis -nonspecific -Seen with pulmonary disease -possible anterior fascicular block. ABNORMAL Electronically signed on 07/22/2017 at 14:19 by Ulises Varela 07/22/171420 Date Ulises Varela MD CC: ELAYNE VICKERS; OUT OF TOWN DOCTOR Date Dictated: 07/21/171424 Date Transcribed: 07/21/171424 Knitter Helper: CO Signed DISCHARGE SUMMARY Observed: 07/21/2017 Status: F Source: [place] 10:39 AM [facility] REPOSITORY [facility] Medical Records Department [address] [place] [address] Discharge Summary 07/21/17 1011 MR#: [id number] Acct: [id number] Name: JOHANA YBARRA Rep #: [id number] : 1960 57 From: Azul Landry PCP: OUT OF TOWN DOCTOR Status: ADM IN Y Location: [place] [address] Discharge Date and Diagnosis - Problem List Patient Problems: Active and Suspected Problems (Last Reviewed 06/10/17 @ 10:08 by Jennifer Duvall) Right hip pain (Acute) Date of Admission: 07/17/17 Date of Discharge: 07/21/17 - Primary Discharge Diagnosis Active and Suspected Problems (Last Reviewed 06/10/17 @ 10:08 by Jennifer Duvall) (1) Acute on chronic intractable right hip pain secondary to suspected avascular necrosis (2) CAD s/p PCI (3) Obesity (4) Tobacco Abuse (5) Hypertension (6) Hyperlipidemia (7) Chronic Pain Syndrome - Secondary Discharge Diagnosis Chronic Problems (Last Reviewed 06/10/17 @ 10:08 by Jennifer Duvall) Atherosclerosis of [place] coronary artery of [place] heart without angina pectoris (Chronic) Tobacco abuse (Chronic) H/O laminectomy (Chronic) Hypertension (Chronic) Hyperlipidemia (Chronic) Low back pain (Chronic) Hospital Course and Treatment Dr. Rogers Pain Management Dr. Nascimento Orthopedic surgery Operations: None Procedures: EKG Summary of Care Provided: The patient is a 57 y/o F w/ PMHx: CAD s/p PCI 10/2016, Tobacco use, Chronic back pain s/p intervention following w/ Pain Management Dr. Rogers, HTN, HLD, Obesity who presented to the [facility] ED on 07/17/17 with history of increasing right hip discomfort with inability to bear weight and abnormal hip sounds with movement she notes with ongoing hip injections and evaluation outpatient per orthopedic surgery. Plain films in the ED w/ changes of the right hip secondary to avascular necrosis and compression of the femoral head although initially possible healed undisplaced patella femoral neck fracture with recreation for MRI follow-up. MRI demonstrated subchondral insufficiency fracture with subchondral collapse of the right femoral head, chondral loss of the right hip joint with joint effusion, bone edema of the right acetabulum, strain of the right gluteus minimus muscle, enchondroma in the right femoral neck. Dr. Nascimento, Orthopedic surgery evaluation performed with noted acute pain secondary to avascular necrosis with subchondral collapse with no acute fracture demonstrated which he notes will eventually require complete hip replacement on an elective basis. Patient was maintained on fall precautions, frequent positioning, IV/oral pain medication transitioned to oral regimen only w/ oral oxycodone and neurontin with noted concerns for malingering; however, but per discussion w/ Orthopedic surgery they noted this diagnosis is notably painful, thus 07/20/17 added low dose fentanyl patch for discharge planning w/ improvement with increase to 25 mcg daily upon discharge, continued zanaflex scheduled, anti-emetics, bowel regimen. PT and OT for evaluation, initially planned SNF, improved discharged to home with outpatient therapies. Dr. Rogers consulted, evaluation 07/21/17 AM with agreement with current interventions, no further interventions plan, amenable to discharge and plan for Cardiology follow-up for operative clearance and re-assessment Orthopedic surgery upcoming Thursday for set-up elective hip. Discharge Activity: May Not Drive, Use Walker May resume sexual activity in: - - Defer until pain improved and cleared per Orthopedic surgery. Weight Bearing Status: Weight bearing as tolerated Call your doctor if you observe: Fever of 101 or Higher, Inability to urinate, Inability to have a bowel movement, Shortness of breath, Dizziness, Fainting spells, Chest pain, Uncontrolled pain Home Medications: Medications to take at Discharge Furosemide [Lasix] 20 mg PO DAILY 09/16/16 Lisinopril [Zestril] 20 mg PO DAILY 09/16/16 traZODone [Desyrel] 200 mg PO QHS 09/16/16 Aspirin [Aspirin, Baby] 81 mg PO DAILY@0800 tab.chew 11/18/16 Clopidogrel Bisulfate [Plavix] 75 mg PO DAILY 30 Days tab 11/18/16 Tizanidine HCl [Zanaflex] 4 mg PO TID 11/25/16 DiphenhydrAMINE [Benadryl] 50 mg PO QHS 01/15/17 gabapentin 400 mg capsule 800 mg PO 4X/DAY 03/18/17 metoprolol tartrate 25 mg tablet 25 mg PO BID 60 Days #60 tab 05/25/17 rosuvastatin 40 mg tablet 40 mg PO DAILY 30 Days #30 tab 05/25/17 Oxycodone [Oxyir] 15 mg PO Q4H PRN PRN 3 Days #50 tablet 07/21/17 Senna/Docusate Sodium [Senokot-S] 2 tab PO DAILY #60 tab 07/21/17 fentaNYL patch [Duragesic patch] 25 mcg TRANSDERM. Q3D 3 Days #1 patch 07/21/17 Following Prescrptions Were Given to Patient: Oxycodone [Oxyir] 15 mg PO Q4H PRN PRN 3 Days #50 tablet PRN Reason: Mod-Severe Pain (4-01/06) fentaNYL patch [Duragesic patch] 25 mcg TRANSDERM. Q3D 3 Days #1 patch Senna/Docusate Sodium [Senokot-S] 2 tab PO DAILY #60 tab Primary Care Physician: [facility] Doctor,Out of [Primary Care Provider] - Please follow up with your Primary Care Physician in: Follow- up with PCP within 3-5 days to review admission. Please Follow Up With: Ulises Varela MD When: Follow-up as arranged 07/21/17 for cardiac clearance. Please Follow Up With: Ronal Nascimento DO When: Follow-up as arranged 07/24/17 for set-up elective hip. Please Follow Up With: Mackenzie Rogers MD When: Arrange follow-up within 1-2 weeks. Patient Instructions: ED Necrosis Avascular Femoral Head Disposition: Home Minutes spent on discharge:: 35 Patient Condition:: Fair Medical Necessity - Tobacco Use Smoking Status: Current every day smoker Tobacco Use: Cigarettes Meaningful Use Info Meaningful Use Diagnoses (Choose all that apply): None applicable Code Visit Inpatient E AND M: [id number] Disch Hosp 07/21/17 1039 <Electronically signed by Azul Landry > Date Azul Landry Cosigner Signature (if applicable): Date CC: Azul Landry; OUT OF TOWN DOCTOR Signed DISCHARGE INSTRUCTION Observed: 07/21/2017 Status: F Source: [place] 10:11 AM [facility] REPOSITORY [facility] Medical Records Department [address] [place] [address] Instructions for Home/Discharge Instructions 07/21/17 1007 MR#: [id number] Acct: [id number] Name: JOHANA YBARRA Rep #: [id number] : 1960 57 From: Azul Landry PCP: OUT OF TOWN DOCTOR Status: ADM IN - Discharge Diagnoses Current Active Problems: Current Active and Chronic Problems (Last Reviewed 06/10/17 @ 10:08 by Jennifer Duvall) (1) Acute on chronic intractable right hip pain secondary to suspected avascular necrosis (2) CAD s/p PCI (3) Obesity (4) Tobacco Abuse (5) Hypertension (6) Hyperlipidemia (7) Chronic Pain Syndrome You will use the following diet at home:: Cardiac Your food should be the consistency of: Regular Your liquids should be the consistency of: Regular/Thin Discharge Activity: May Not Drive, Use Walker May resume sexual activity in: - - Defer until pain improved and cleared per Orthopedic surgery. Weight Bearing Status: Weight bearing as tolerated Call your doctor if you observe: Fever of 101 or Higher, Inability to urinate, Inability to have a bowel movement, Shortness of breath, Dizziness, Fainting spells, Chest pain, Uncontrolled pain Instructions: ED Necrosis Avascular Femoral Head Allergies/Adverse Reactions: Allergies adhesive Adverse Reaction (Verified 07/18/17 16:42) Other baclofen Adverse Reaction (Verified 07/16/17 23:59) LETHARGY Medications to take at Discharge Furosemide [Lasix] 20 mg PO DAILY 09/16/16 Lisinopril [Zestril] 20 mg PO DAILY 09/16/16 traZODone [Desyrel] 200 mg PO QHS 09/16/16 Aspirin [Aspirin, Baby] 81 mg PO DAILY@0800 tab.chew 11/18/16 Clopidogrel Bisulfate [Plavix] 75 mg PO DAILY 30 Days tab 11/18/16 Tizanidine HCl [Zanaflex] 4 mg PO TID 11/25/16 DiphenhydrAMINE [Benadryl] 50 mg PO QHS 01/15/17 gabapentin 400 mg capsule 800 mg PO 4X/DAY 03/18/17 metoprolol tartrate 25 mg tablet 25 mg PO BID 60 Days #60 tab 05/25/17 rosuvastatin 40 mg tablet 40 mg PO DAILY 30 Days #30 tab 05/25/17 Oxycodone [Oxyir] 15 mg PO Q4H PRN PRN 3 Days #50 tablet 07/21/17 Senna/Docusate Sodium [Senokot-S] 2 tab PO DAILY #60 tab 07/21/17 fentaNYL patch [Duragesic patch] 25 mcg TRANSDERM. Q3D 3 Days #1 patch 07/21/17 The following prescriptions were given: Oxycodone [Oxyir] 15 mg PO Q4H PRN PRN 3 Days #50 tablet PRN Reason: Mod-Severe Pain (4-01/06) fentaNYL patch [Duragesic patch] 25 mcg TRANSDERM. Q3D 3 Days #1 patch Senna/Docusate Sodium [Senokot-S] 2 tab PO DAILY #60 tab Primary Care Physician: [facility] Doctor,Out of [Primary Care Provider] - Please follow up with your Primary Care Physician in: Follow- up with PCP within 3-5 days to review admission. Please Follow Up With: Ulises Varela MD When: Follow-up as arranged 07/21/17 for cardiac clearance. Please Follow Up With: Ronal Nascimento DO When: Follow-up as arranged 07/24/17 for set-up elective hip. Please Follow Up With: Mackenzie Rogers MD When: Arrange follow-up within 1-2 weeks. Proposed Discharge Date: 07/21/17 07/21/17 1011 <Electronically signed by Azul Landry > Date Azul Landry CC: Mackenzie Rogers MD; Ronal Nascimento DO; OUT OF [facility] DOCTOR TIBIA AND FIBULA Observed: 07/19/2017 Status: F Source: [place] 2 VIEWS 12:54 PM [facility] REPOSITORY [facility] Imaging Services [address] [place] [address] Tibia AND Fibula 2 Views MR#: [id number] Acct: [id number] Name: JOHANA YBARRA Rep #: [id number] : 1960 F 57 From: Enrique Breaux MD PCP: OUT OF TOWN DOCTOR Status: ADM IN Study: Tibia AND Fibula 2 Views Date of Exam: 07/19/17 Exam# [id number] Ordering Dr: Viraj Tamez DO STUDY: X-RAY - RIGHT TIBIA AND FIBULA REASON FOR EXAM: Female, 57 years old. Pain TECHNIQUE: 2 view(s) of the tibia and fibula were obtained. COMPARISON: None. FINDINGS: There is no evidence of fracture or dislocation. There are no significant degenerative changes. There are no radiodense foreign bodies. RAD/Tibia AND Fibula 2 Views IMPRESSION: No fracture or dislocation in the right tibia or fibula. Electronically Signed: Enrique Breaux, at 14:56 EDT Tel , Service support , CC: Viraj Tamez DO; OUT OF TOWN DOCTOR Knitter Helper: Signed CONSULTATION Observed: 07/18/2017 Status: F Source: [place] 7:27 AM [facility] Medical Records Department [address] [place] [id number] Consultation 07/18/17 0725 MR#: [id number] Acct: [id number] Name: DEMOND YBARRASTEVO Ari Rep #: [id number] : 1960 57 From: Ronal Nascimento DO PCP: OUT OF TOWN DOCTOR Status: ADM IN Y Location: [place]3 [id number] - Consult Date of Consult: 07/18/17 - Reason for Consult Handwritten consult was submitted yesterday as the aWhere system was down. The patient has had a stent placed in October and is currently on Plavix. I did review the imaging she has severe avascular necrosis with subchondral collapse which is certainly causing her discomfort. MRI was also reviewed. Patient does not have an acute fracture. She will require a hip replacement however the plan will be to complete this on an elective basis. Patient was instructed to see her shag truck driver this week and follow-up with me this coming week and proceed with surgery in the next couple of weeks again on an elective basis in order to decrease risk of complication. At this point ambulation with protected weightbearing using a walker would be appropriate and pain medication. It is reasonable to discharge her home with oral pain medication with follow-up next week. Arrangements have been made with my office for follow-up 07/18/17 0727 <Electronically signed by Ronal Nascimento DO> Date Ronal Nascimento DO Cosigner Signature (if applicable): Date CC: Ronal Nascimento DO; OUT OF TOWN DOCTOR Signed PELVIS (ROUTINE) Observed: 07/17/2017 Status: F Source: [place] 4:55 AM [facility] REPOSITORY [facility] Imaging Services [address] [place] [id number] Pelvis (Routine) MR#: [id number] Acct: [id number] Name: DEMOND YBARRASTEVO Chapman Rep #: [id number] : 1960 F 57 From: Morro Corea MD PCP: OUT OF TOWN DOCTOR Status: ADM IN Study: Pelvis (Routine) Date of Exam: 07/17/17 Exam# [id number] Ordering Dr: Rigo Auguste DO STUDY: MRI BILATERAL HIPS T PELVIS REASON FOR EXAM: Severe right hip pain worsening since December, no specific injury. TECHNIQUE: Standardized fat and water weighted pulse sequences were obtained in all 3 orthogonal planes. COMPARISON: Radiographs 07/17/2017. FINDINGS: RIGHT HIP There is chondral loss of the right hip joint and effusion (T2 sagittal images 39-41). There is bone edema of the right acetabulum (inversion recovery coronal images 10-15). There is degeneration of the right labrum. There is subchondral collapse of the right femoral head (T1 coronal images 11-13) with bone edema extending into the femoral neck and a linear fracture line of the right femoral head (T1 axial image 20; T1 coronal image 11), most suggestive of insufficiency fracture. There is an enchondroma in the base of the right femoral neck (inversion recovery coronal image 12) measuring 1.6 cm in length. Normal right gluteus minimus, medius and iliopsoas tendons and distal insertions. Normal right superior and inferior pubic rami. Normal right pubic symphysis. Normal right ischial tuberosity. Normal origin of the right hamstring tendons. Normal visualized right iliac wing, sacroiliac joint, and sacral ala. There is a strain of the right gluteus minimus muscle (inversion recovery coronal images 9-11). LEFT HIP Normal left hip joint without articular joint space narrowing. Normal left acetabulum. Normal left labrum. Normal left femoral head. Normal left femoral neck and intratrochanteric region. Normal left gluteus minimus, medius and iliopsoas tendons and distal insertions. Normal left superior and inferior pubic rami. Normal left pubic symphysis. Normal left ischial tuberosity. Normal origin of the left hamstring tendons. Normal visualized left iliac wing, sacroiliac joint, and sacral ala. MRI/Pelvis (Routine) IMPRESSION: Subchondral insufficiency fracture with subchondral collapse of the right femoral head. Chondral loss of the right hip joint with joint effusion. Bone edema of the right acetabulum. Strain of the right gluteus minimus muscle. Enchondroma in the right femoral neck. Electronically Signed: Morro Corea MD at 9:33 EDT Tel , Service support , CC: Rigo Auguste DO; OUT OF TOWN DOCTOR Knitter Helper: Signed HISTORY AND PHYSICAL Observed: 07/17/2017 Status: F Source: [place] EXAM 4:47 AM [facility] REPOSITORY [facility] Medical Records Department [address] [place] [address] History and Physical 07/17/17 0438 MR#: [id number] Acct: [id number] Name: JOHANA YBARRA Rep #: [id number] : 1960 57 From: Rigo Auguste DO PCP: OUT OF TOWN DOCTOR Status: ADM IN Y Location: [place]3 [id number] Problem List (1) Right hip pain Status: Acute History of Present Illness Date of Admission: 07/17/17 Chief Complaint: Increased right hip pain The patient is a 57 year old F in in the emergency room at [facility] complaining of increased pain in her right hip along with inability to bear weight on the right hip and abnormal hip sounds. Patient has had a history of right hip pain since December 2016, she saw an orthopedic surgeon at that time who did not feel the patient needed surgical intervention, she had her right hip joint injected 4 weeks ago by pain management but is continued to have ongoing pain in her right hip. Evaluation in the emergency room included x-rays of the right hip and pelvis which showed a flattening of the right femoral head and what appears to be a fracture of the right femoral neck. There is also question that there could be an AVN of the right hip present. She had no lab work ordered by the emergency room. Patient was given IV pain medication and the hospitalist service was called for admission for right hip fracture-possible AVN. Patient will need an MRI of the right hip performed and will need to be seen by orthopedic surgery, patient prefers Dr. Ronal Nascimento for orthopedic consultation Past Medical History Past Medical History (Chronic Problems): Chronic Problems (Last Reviewed 06/10/17 @ 10:08 by Jennifer Duvall) Atherosclerosis of [place] coronary artery of [place] heart without angina pectoris (Chronic) Tobacco abuse (Chronic) H/O laminectomy (Chronic) Hypertension (Chronic) Hyperlipidemia (Chronic) Low back pain (Chronic) Allergies baclofen Adverse Reaction (Verified 07/16/17 23:59) LETHARGY Home Medications: Ambulatory Orders Medication Instructions Recorded Furosemide [Lasix] 20 mg PO DAILY 09/16/16 Lisinopril [Zestril] 20 mg PO DAILY 09/16/16 traZODone [Desyrel] 200 mg PO QHS 09/16/16 Surgical History: herniorrhaphy, hysterectomy, - - laminectomy, left tib-fib fracture with open reduction secondary to trauma, coronary artery stents 2, left breast biopsy Psychiatric History: No pertinent psych hx SUSTAIN ENGINEER History: No pertinent SUSTAIN ENGINEER history Lives: With Family Smoking Status: Current every day smoker Tobacco Use: Cigarettes Alcohol: Occasional Drugs: None - *Family History Maternal History Items: Diabetes Paternal History Items: Hypertension Review of Systems Constitutional: Denies: Anorexia, Chills, Fever, Night Sweats, Malaise, Weakness, Weight Change, Fatigue Eyes: Denies: Blurred vision, Cataracts, Conjunctivae Inflammation, Double vision, Drainage, Pain, Redness, Vision Change HEENT: Denies: Difficulty Swallowing, Dysphasia, Ear Pain, Eye Pain, Head Aches, Hearing Changes, Nasal bleeding, Nasal Congestion, Post Nasal Drip Cardiovascular: Denies: Chest Pain, Claudication, Chest Pressure, Chest Tightness, Edema, Heaviness, Orthopnea, Palpitations, Paroxysmal Noc. Dyspnea Respiratory: Denies: Cough, Hemoptysis, Pleuritic Pain, Shortness of Breath, Shortness of breath at rest, Shortness of breath upon exertion, Sputum production, Wheezing Gastrointestinal: Denies: Abdominal Pain, Constipation, Diarrhea, Hematemesis, Hematochezia, Nausea, Melena, Vomiting Genitourinary: Denies: Dysuria, Frequency, Hematuria, Hesitancy, Incontinence, Nocturia, Urgency Gynecological: Denies: Breast symptoms Musculoskeletal: Reports: Back Pain - Chronic back pain, Joint Pain - Right hip pain, Leg Pain - Right hip pain. Denies: Foot Pain Skin: Denies: Dryness, Jaundice, Pruritis, Rash Neurological: Denies: Blurred vision, Double vision, Change in Speech, Slurred speech, Difficulty swallowing, Focal weakness, Headaches, Incoordination, Numbness, Tingling Psychiatric: Denies: Anxiety, Depression, Homicidal Ideations, Suicidal Ideations Endocrine: Denies: Change in Body Habitus, Heat/ Cold Intolerance, Polydipsia, Polyuria Hematologic/ Lymphatic: Denies: Adenopathy, Anemia, Easy Bruising, Easy Bleeding, Petechiae, Purpura VTE Information - Inpt Only VTE Present on Admission: No VTE Mechan Device Prophylaxis: SCD's VTE Pharm Prophylaxis ordered?: No Reason prophylaxis not ordered:: Treatment Not Indicated - SCD's were ordered Patient Problems: Active and Suspected Problems (Last Reviewed 06/10/17 @ 10:08 by Jennifer Duvall) Right hip pain (Acute) - Physical Exam General: Alert, Oriented x3, Cooperative, Well developed, Well nourished HEENT: Atraumatic, PERRLA, EOMI, Normocephalic Oral: Moist Mucosa Neck: Supple, No JVD, Negative Carotid Bruits, No Nuchal Rigidity, Trachea Midline, Thyroid Normal Size and Texture Lungs: Clear to auscultation, Normal air movement, No rhonchi, No rales, Wheezes - Scattered mild expiratory wheezes are noted anteriorly Cardiovascular: Regular rate, Regular Rhythm, Normal S1, Normal S2, No murmurs, No Ectopic Activity, PMI Normal, No rub noted, No Gallop Abdomen: Bowel Sounds Present, Soft, Non Tender, Non-Distended, No hernias noted Extremities: No clubbing, No cyanosis, No edema, Capillary Refill Less than 3 Seconds Skin: No rashes, No breakdown Musculoskeletal: Tenderness - Tenderness over the right hip area is noted to palpation, - - Decreased range of motion is noted in flexion, extension, and abduction in the right hip due to pain Neurological: Cranial nerves II-XII grossly intact, Neuro grossly intact, Sensory exam intact to light touch and pain, Coordination normal Psych/Mental Status: Appropriate, Anxious, Alert and oriented to time, place, person, mood and affect Vital Signs Temp Pulse Resp BP Pulse Ox 98.1 F 103 H 16 144/84 H 97 07/17/17 03:53 07/17/17 03:53 07/17/17 03:53 07/17/17 03:53 07/17/17 03:53 Oxygen Delivery Method Room Air Weight: 88.7 kg Body Mass Index (BMI) 32.5 Laboratory Tests Past 24 Hrs WBC 8.8 RBC 4.46 Hgb 12.7 Hct 39.6 MCV 88.8 MCH 28.5 MCHC 32.1 RDW 16.1 H RDW Differential 52.6 H Assessment/Plan Active and Suspected Problems (Last Reviewed 06/10/17 @ 10:08 by Jennifer Duvall) Right hip pain (Acute) #1 right hip fracture-probably secondary to AVN, patient will be admitted to [place] [address], she will be seen by orthopedic surgery, she will have an MRI of her right hip, IV pain medications will be administered as needed #2 coronary artery disease-stable at this time, patient had two stents placed in October 2016 #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 #4 chronic pain secondary to #3 #5 hyperlipidemia Code Visit Inpatient E AND M: [id number] Init Hosp L3 07/17/17 0447 <Electronically signed by Rigo Auguste DO> Date Rigo Auguste DO Cosigner Signature: Date (if applicable) CC: Rigo Auguste DO; OUT OF TOWN DOCTOR Signed CBC W/DIFF, AUTOMATED Collected: 07/17/2017 Status: F Source: [place] 3:00 AM [facility] REPOSITORY TYPE CODE TESTS RESULT OUT OF RANGE REFERENCE UNITS LAB L100.1000 4.4-11.0 K/mm3 Normal WBC 8.8 LAB L100.1200 4.2-5.4 M/mm3 Normal RBC 4.46 LAB L100.1300 12.0-15.0 g/dl Normal HGB 12.7 LAB L100.1400 37-47 % Normal HCT 39.6 LAB L100.1500 81-99 fL Normal MCV 88.8 LAB L100.1600 27.0-32.0 pg Normal MCH 28.5 LAB L100.1700 32-36 g/gl Normal MCHC 32.1 LAB L100.1810 11.6-14.6 % High RDW CV 16.1 LAB L100.1820 35.1-43.9 fl High RDW SD 52.6 LAB L100.1900 150-450 K/mm3 Normal PLT 251 LAB L100.2000 6.2-12.0 fl Normal MPV 9.9 LAB L100.2100 47-70 % Normal NEUT% 53.2 LAB L100.2200 19-41 % Normal LY% 34.7 LAB L100.2300 0-10 % Normal MONO% 8.5 LAB L100.2400 0-5 % Normal EO% 3.1 LAB L100.2500 0-1 % Normal BASO% 0.3 LAB L100.2550 0.0-0.9 % Normal IM GRAN % 0.200 Result Comment: IG% - Immature Granulocytes (promyelocytes, myelocytes and metamyelocytes) > 1% indicates that a LEFT SHIFT is Present. LAB L100.2620 2.0-7.7 X10 3/uL Normal Absolute Neut 4.7 LAB L100.2720 0.83-4.51 X10 3/ul Normal Absolute Lymph 3.06 Performed By: #### L100.0100 #### [facility] Laboratory [address] [place], [address] PROTHROMBIN TIME W/INR Collected: 07/17/2017 Status: F Source: [place] 3:00 AM [facility] REPOSITORY TYPE CODE TESTS RESULT OUT OF RANGE REFERENCE UNITS LAB L300.4150 11.7-14.9 SECONDS Normal PROTIME 12.7 LAB L300.4200 Normal INR 1.0 Performed By: #### L300.3900 #### [facility] Laboratory [address] [place], [address] COMPREHENSIVE METABOLIC Collected: 07/17/2017 Status: F Source: [facility] 3:00 AM [facility] REPOSITORY TYPE CODE TESTS RESULT OUT OF RANGE REFERENCE UNITS LAB L501.0100 74-106 mg/dL High GLU 116 Result Comment: Fasting Glucose result from 100 to 125 mg/dL suggests IMPAIRED HOMEOSTASIS per A.D.A. criteria. Please note revised GLUCOSE reference range effective 2017. LAB L501.1000 7-18 mg/dL High BUN 29 LAB L501.1100 0.55-1.02 mg/dL High CREAT,SERUM 1.12 Result Comment: The validity of the calculated GFR AND GFRAA in patients over 70 years has not been determined. Clinical correlation is essential. LAB L501.1110 >60 mL/min Low EST GFR 53 Result Comment: Non- GFR Calc LAB L501.1115 >60 mL/min Normal EST GFR - AA 65 Result Comment: GFR Calc LAB L501.1255 ml/min Normal Estimated CRCL 50.47 LAB L501.1300 10-20 RATIO High BUN/CRE 25.9 LAB L501.1500 6.4-8. g/dL Normal 2 T PROT 7.5 LAB L501.1800 3.2-5. g/dL Normal 0 ALB 3.6 LAB L501.1950 2.2-4. g/dL Normal 2 GLOB 3.9 LAB L501.2000 0.9-2. RATIO Normal 4 A/G 0.9 LAB L501.2200 8.5-10 mg/dL Normal .1 CA 8.6 LAB L501.4100 15-37 U/L Low AST 11 LAB L501.4305 45-117 U/L Normal ALK P 116 LAB L501.4405 13-56 U/L Normal ALT 19 LAB L501.4600 0.20-1 mg/dL Low .00 T BILI < 0.10 LAB L501.5300 136-14 mmol/L Normal 5 NA 144 LAB L501.5600 3.5-5. mmol/L Normal 1 K 3.9 LAB L501.5900 98-107 mmol/L High CL 108 LAB L501.6100 21.0-3 mmol/L Normal 2.0 CO2 29.0 LAB L501.6200 5-15 Normal GAP 7 Performed By: #### L500.4050 #### [facility] Laboratory [address] [place], [address] EMERGENCY DEPARTMENT Observed: 07/17/2017 Status: F Source: [place] SUMMARY 2:55 AM [facility] REPOSITORY [facility] Medical Records Department [address] [place] [address] Emergency Department Summary 07/17/17 0251 MR#: [id number] Acct: [id number] Name: JOHANA YBARRA Rep #: [id number] : 1960 57 From: Brent Venegas DO PCP: OUT OF TOWN DOCTOR Status: REG ER - ER Visit Summary Date of Service: 07/17/17 Chief Complaint: [Right hip pain] History of Present Illness: The patient is a 57 F [presents the emergency department with right hip pain for 6 or 7 months. Patient states that she was seen in the emergency department in December of last year and had x-rays that did not show anything significant. Patient since has been seen by pain management and has injections in the right hip. Patient also has a history of chronic back pain and in April had an MRI of her back that showed some herniated disks and patient is currently seeing a spine surgeon who is evaluating patient for possible need for surgery. Patient states that over the last month the pain in the right hip has become more severe and at times now having a hard time getting up from a seated position. When patient tries to stand and bear weight she hears a cracking and popping in the right hip. Patient states that the pain is severe and she points to her right groin as the area of her pain. Patient denies any recent trauma.] Physical Examination: [HEENT-PERRLA, EOMI. Cranial nerves II through XII grossly intact. TMs clear. Mucous membranes moist. No adenopathy. Cardiovascular-regular rate and rhythm without murmur or ectopy Lungs-clear to auscultation, chest wall stable without crepitus or subcu emphysema Abdomen-normoactive bowel sounds, soft, nontender, no rebound or rigidity, no peritoneal signs. Extremities-intact 4, normal range of motion, normal pulses, atraumatic]. Right hip-patient has pain with logrolling. Patient has positive straight leg raise with pain starting at 10 . Deep tendon reflexes are plus 1 out of 4 bilaterally at the patella and Achilles. Patient has normal L5 extension bilaterally. Test Results: [X-rays of the right hip and pelvis obtained showed changes in the right hip which may be due to avascular necrosis and compression of the femoral head there is a significant sclerosis step off may be secondary to a healed displaced patellofemoral neck fracture. MRI examination advised for further detail.] Emergency Department Course and Treatment: [Patient was medicated with Dilaudid in the emergency department and patient will be admitted for pain control as she continues to complain of significant pain. Patient should not be weightbearing. Patient will be admitted for further evaluation and treatment.] Treatment Plan: [Admit] Disposition: [Admit] Impression: [Intractable right hip pain Avascular necrosis right hip Right hip fracture] This note was generated with Isaiation software. It may contain incorrect words, spelling, and punctuation that were not noted in review of the chart prior to signing ED Disposition - Plan for ED Patient: Chief Complaint: Back Referrals: [facility] Doctor,Out of [Primary Care Provider] - What to do if you have Problems For any increased pain, shortness of breath, bleeding, nausea or vomiting, chest pain, or any unexpected problems, contact your Primary Care Provider. Call [facility] ([phone]) or report to the closest Emergency Room. Call 911 if necessary. 07/17/17 0255 <Electronically signed by Brent Venegas DO> Date Brent Venegas DO Cosigner Signature (If Indicated): Date CC: OUT OF TOWN DOCTOR HIP 2-3 VIEWS WITH Observed: 07/17/2017 Status: F Source: [place] PELVIS 12:34 AM [facility] REPOSITORY [facility] Imaging Services [address] [place] [id number] Hip 2-3 Views with Pelvis MR#: [id number] Acct: [id number] Name: JOHANA YBARRA Rep #: [id number] : 1960 F 57 From: Melissa Fuller MD PCP: OUT OF [facility] DOCTOR Status: REG ER Study: Hip 2-3 Views with Pelvis Date of Exam: 07/17/17 Exam# [id number] Ordering Dr: Brent Venegas DO STUDY: X-RAY - PELVIS AND RIGHT HIP REASON FOR EXAM: Female, 57 years old. Pain getting progressively worse since January 16, 2017, no known injury. TECHNIQUE: Radiological exam, hip, unilateral, with pelvis when performed; 2 or 3 views. COMPARISON: 01/15/2017. Pelvis 11/15/2016. FINDINGS: There are degenerative changes of the visualized lumbar spine. There are atherosclerotic vascular calcifications of the pelvic arteries. There is narrowing with cortical sclerosis and osteophyte formation of the sacroiliac joint consistent with degenerative osteoarthritic changes. Normal bilateral superior and inferior pubic rami. Normal pubic symphysis. Normal bilateral ischial tuberosities. Significant change of right femoral head and proximal neck with flattening of the femoral head, sclerosis, loss of femoral head height. There is a new step off which is densely corticated between the femoral neck and head in the subcapital left femur. Normal acetabulum. There is severe articular cephalad joint space narrowing of the hip. RAD/Hip 2-3 Views with Pelvis IMPRESSION: Again changes of the right hip in the interim with changes as outlined above, this may be due to avascular necrosis and compression of the femoral head, however the significant sclerosed step off may be secondary to a healed displaced up to patellofemoral neck fracture. MRI examination advised for further detail. Electronically Signed: Melissa Fuller MD at 1:52 EDT , Service support , CC: OUT OF TOWN DOCTOR; Brent Venegas DO Knitter Helper: Signed ORTHOPEDIC VISIT Observed: 06/13/2017 Status: F Source: [place] REPORT 1:37 PM [facility] REPOSITORY [facility] Orthopaedics AND Sports Medicine [address] [place] [address] OFFICE VISIT Date of Service: 06/09/17 MR#: [id number] Acct: [id number] Name: JOHANA YBARRA Rep #: [id number] : 1960 Provider: Rhea Antunez MD Age/Sex: 57/F [place] [facility] [place]: Signed Intake Intake Visit Reasons: low back Is patient in pain?: Yes Allergies baclofen Adverse Reaction (Verified 06/10/17 10:08) LETHARGY Medications Furosemide [Lasix] 20 mg PO DAILY 09/16/16 [History Confirmed 04/13/17] Lisinopril [Zestril] 20 mg PO DAILY 09/16/16 [History Confirmed 04/13/17] Trazodone HCl [Desyrel] 200 mg PO QHS 09/16/16 [History Confirmed 04/13/17] Aspirin [Aspirin, Baby] 81 mg PO DAILY@0800 tab.chew 11/18/16 [Rx Confirmed 04/13/17] Clopidogrel Bisulfate [Plavix] 75 mg PO DAILY 30 Days tab 11/18/16 [Rx Confirmed 04/13/17] Ibuprofen [Motrin] 800 mg PO TID PRN 11/25/16 [History Confirmed 04/13/17] Oxycodone HCl/Acetaminophen [Percocet 5/325] 1 tab PO TID 11/25/16 [History Confirmed 04/13/17] Tizanidine HCl [Zanaflex] 4 mg PO TID 11/25/16 [History Confirmed 04/13/17] DiphenhydrAMINE [Benadryl] 50 mg PO QHS 01/15/17 [History Confirmed 04/13/17] gabapentin 400 mg capsule 400 mg PO TID 03/18/17 [History Confirmed 04/13/17] metoprolol tartrate 25 mg tablet 25 mg PO BID 60 Days #60 tab 05/25/17 [Rx] rosuvastatin 40 mg tablet 40 mg PO DAILY 30 Days #30 tab 05/25/17 [Rx] PFSH Medical History Atherosclerosis of [place] coronary artery of [place] heart without angina pectoris (Chronic) Tobacco abuse (Chronic) Syncope and collapse (Resolved) LOVE (acute kidney injury) (Acute) NSTEMI (non-ST elevated myocardial infarction) (Acute) Hypertension (Chronic) Hyperlipidemia (Chronic) Low back pain (Chronic) Surgical History H/O laminectomy (Chronic) History of left heart catheterization (Chronic) Hx of bone graft (Chronic 2014) S/P ORIF (open reduction internal fixation) fracture (Chronic) Family History Father Hypertension Mother Hypertension Social History Smoking Status: Current every day smoker alcohol intake: current alcohol intake frequency: a few times a week Alcohol type: hard liquor substance use type: does not use caffeine: Yes Type: coffee, carbonated beverages what type of physical activity do you participate in: none seatbelt use: always do you feel safe at home: Yes HPI low back: Details: JOHANA YBARRA returns today in followup after her lumbar MRI. She continues to have 15% back pain and 85% right groin, anterior thigh and anterior calf pain and chronic left posterior thigh and calf pain. It is worse with everything and improved with laying. She is on percocet 7.5mg TID, xanaflex and gabapentin 800mg QID. She denies bowel or bladder issues. She uses a cane since 12/2016. She denies difficulty with hand dexterity. She does smoke. She had an EMG a few years ago. She has not started physical therapy. She has been seen by Dr. Armenta without further recommendations for her hip. She has had a right L4, L5, S1 MARJORIE in 01/2017 that helped for 2 days. She is on plavix. ROS Const Reports system reviewed and no additional complaints, except as docu Eyes Reports system reviewed and no additional complaints, except as docu ENT Reports system reviewed and no additional complaints, except as docu Card Reports system reviewed and no additional complaints, except as docu Resp Reports system reviewed and no additional complaints, except as docu GI Reports system reviewed and no additional complaints, except as docu Reports system reviewed and no additional complaints, except as docu Musc Reports back pain, Reports muscle weakness, Reports radiating pain into limb, Reports stiffness Skin/Breast Reports system reviewed and no additional complaints, except as docu Neuro Yes system reviewed and no additional complaints, except as docu Psych Reports system reviewed and no additional complaints, except as docu Endo Reports system reviewed and no additional complaints, except as docu Ortho Exam Spine Neuro: Yes Rivas's (negative bilaterally) General: alert, oriented x3 Capillary Refill <2sec: Yes Palpable Pulses: 2+ dp/pt pulses bilaterally Gait: antalgic, other (able to stand on heels and toes with assistance) Motor: strength 5/5 throughout Sensory Exam: no sensory deficits noted DTR's: Rt Patellar: 2+, Lt Patellar: 2+, Rt Ankle: 2+, Lt Ankle: 2+ Plantar Reflexes: Downgoing: bilateral SPINE TESTING CERVICAL THORACIC LUMBAR SLR: Negative Musculoskeletal Thoracic/Lumbar Spine: pain with thoraco-lumbar ROM, thoraco- lumbar ROM limited Strength 0=absent - 5=normal R Hip Flexor (L1-3): 5, L Hip Flexor (L1-3): 5, R Quadriceps (L2-4): 5, L Quadriceps (L2-4): 5, R Anterior Tibialis (L4-5): 5, L Anterior Tibialis (L4-5): 5, R Hamstrings (L5-S1): 5, L Hamstrings (L5-S1): 5, GS (S1): 5, L GS (S1): 5, R Peroneals (S1): 5, L Peroneals (S1): 5 Assessment AND Plan Problems 1. Pain of right lower extremity M79.604 Plan Imaging: MRI lumbar spine 05/06/2017 - diffuse spondylosis with prior right L4-5 and L5-S1 hemilaminotomy. There is left L5-S1 foraminal stenosis. Mild L4-5 anterolisthesis I/R/P: 1. back pain 2. right leg pain 3. chronic left leg pain 4. prior right L4-5, L5-S1 hemilaminotomy, elsewhere 5. nicotine use Ms. Ybarra presents with back pain and right leg pain. Her MRI lumbar spine is unchanged from her prior MRI. Her right leg symptoms are not well explained by her MRI. Recommend EMG bilteral lower extremities. Counseled on nicotine cessation. Strongly encouraged physical therapy. Follow up after EMG. Plan of care discussed. All questions answered. She and her mother are in understanding. Orders Orders: Coding Level of Care Code Off vis,est,level 4 Diagnoses Pain of right lower extremity M79.604 Laterality: right 06/13/17 1337 <Electronically signed by Rhea Antunez MD> Date Rhea Antunez MD Cosigner Signature: Date (if applicable) CC: SPINE LUMBAR W/WO Observed: 05/06/2017 Status: F Source: [place] CONTRAST 12:00 AM [facility] REPOSITORY [facility] Imaging Services [address] [place], [place] [address] [address] Spine Lumbar W/WO Contrast MR#: [id number] Acct: [id number] Name: JOHANA YBARRA Rep #: [id number] : 1960 F 57 From: Michael Meza MD PCP: OUT OF TOWN DOCTOR Status: REG CLI Study: Spine Lumbar W/WO Contrast Date of Exam: 05/06/17 Exam# [id number] Ordering Dr: Rhea Antunez MD STUDY: MRI LUMBAR SPINE WITH AND WITHOUT CONTRAST REASON FOR EXAM: Female, 57 years old. Back pain radiating down the legs TECHNIQUE: Standardized fat and water weighted pulse sequences were obtained in the sagittal and axial planes. 10 ml of Gadavist contrast material was administered for the contrast portion of the examination. COMPARISON: None FINDINGS: T12-L1: Normal endplates. Normal disc height, hydration and minimal annular bulge. Normal bilateral facet joints. Normal central canal and bilateral lateral recesses. Normal bilateral intervertebral neural foramina. Normal lumbar lordosis. There is no substantial scoliosis. Normal conus medullaris that terminates at T12-L1 L1-2: Minor chronic wedging of superior endplate of L1 Normal disc height, hydration and minimal annular bulge.. Normal bilateral facet joints. Normal central canal and bilateral lateral recesses. Normal bilateral intervertebral neural foramina. L2-3: Minor chronic wedging of superior endplate of L2 Normal disc height, hydration and minimal annular bulge.. Normal bilateral facet joints. Normal central canal and bilateral lateral recesses. Normal bilateral intervertebral neural foramina. L3-4: Normal endplates. Normal disc height, hydration and minor annular bulge.. Mild facet arthropathy. Normal central canal. Mild bilateral recess and neural foraminal encroachment. L4-5: Grade 1 spondylolisthesis . Status post right laminectomy. Normal endplates. Normal disc height, hydration and minor pseudobulging of the annulus.. Bilateral facet arthropathy Normal central canal. Severe bilateral recess stenosis exaggerated by shortened pedicles. Mild neural foraminal encroachment L5-S1: Status post right laminotomy. Normal endplates. Normal disc height, desiccation and minimal annular bulge with prominent left posterolateral/foraminal disc protrusion. Bilateral facet arthropathy.. Normal central canal. Severe left lateral recess and neuroforaminal stenosis. Normal visualized sacral ala. There is mild enhancement epidural fibrosis seen within the epidural space at L4-5 and L5-S1. No evidence for acute osteomyelitis or discitis Normal visualized paraspinous soft tissue structures. MRI/Spine Lumbar W/WO Contrast IMPRESSION: Status post right laminectomy at L4-5 and L5-S1. There is severe bilateral stenosis at L4-5 due to minor pseudobulging the annulus and bilateral facet arthropathy exaggerated by shortened pedicles Severe left lateral recess and neuroforaminal stenosis at L5-S1 secondary to prominent left posterolateral/foraminal disc protrusion Electronically Signed: Michael Meza MD at 23:31 EST , Service support , CC: Rhea Antunez MD; OUT OF TOWN DOCTOR Knitter Helper: Signed CARDIOLOGY VISIT Observed: 04/23/2017 Status: F Source: [place] REPORT 4:44 PM [facility] REPOSITORY [facility] [address] [place] [address] OFFICE VISIT Date of Service: 03/18/17 MR#: [id number] Acct: [id number] Name: JOHANA YBARRA Rep #: [id number] : 1960 Provider: YOSSI Stallings Age/Sex: 56/F Location: [facility] Status: Signed HPI 3 M FU: Chief Complaint: Routine follow-up Details: JOHANA YBARRA, is a 56 F who presents to the office today for a cardiovascular outpatient follow-up. She has history of coronary artery disease status post stenting to her mid RCA and stenting to her proximal LAD and balloon dilation to diagonal vessel in October 2016, hypertension, hyperlipidemia, and tobacco abuse. Pt denies chest, arm, jaw, or neck discomfort. Her exercise tolerance is stable. Pt denies symptoms of CHF, palpitations, lightheadedness, dizziness, near syncopal or syncopal episodes. Pt denies edema or claudication issues. Pt. denies orthopnea, fever, chills, blood in urine, blood in stool, myalgia, or unexplainable fatigue. Pt. states occasional PND. Pt. denies daytime fatigue. She has difficulty sleeping d/t pain, which results in some daytime napping. Pt. states she plans to start rehab once physically feeling better. She has seen an orthopedic surgeon and hip specialist. She will have a follow-up MRI in the near future. Echocardiogram from October 2016 showed an estimated ejection fraction of 65%, diastolic dysfunction, and mild mitral valve insufficiency. 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 Accompanied by: None Is patient in pain?: Yes (lower back) Pain scale (1-10): 10 Allergies baclofen Adverse Reaction (Verified 03/18/17 11:31) LETHARGY Medications Furosemide [Lasix] 20 mg PO DAILY 09/16/16 [History Confirmed 03/18/17] Lisinopril [Zestril] 20 mg PO DAILY 09/16/16 [History Confirmed 03/18/17] Trazodone HCl [Desyrel] 200 mg PO QHS 09/16/16 [History Confirmed 03/18/17] Aspirin [Aspirin, Baby] 81 mg PO DAILY@0800 tab.chew 11/18/16 [Rx Confirmed 03/18/17] Clopidogrel Bisulfate [Plavix] 75 mg PO DAILY 30 Days tab 11/18/16 [Rx Confirmed 03/18/17] Metoprolol Tartrate [Lopressor (beta kusum)] 25 mg PO BID 60 Days tab 11/18/16 [Rx Confirmed 03/18/17] Rosuvastatin Calcium [Crestor] 40 mg PO DAILY 30 Days 11/18/16 [Rx Confirmed 03/18/17] Ibuprofen [Motrin] 800 mg PO TID PRN 11/25/16 [History Confirmed 03/18/17] Oxycodone HCl/Acetaminophen [Percocet 5/325] 1 tab PO TID 11/25/16 [History Confirmed 03/18/17] Tizanidine HCl [Zanaflex] 4 mg PO TID 11/25/16 [History Confirmed 03/18/17] DiphenhydrAMINE [Benadryl] 50 mg PO QHS 01/15/17 [History Confirmed 03/18/17] gabapentin 400 mg capsule 400 mg PO TID 03/18/17 [History Confirmed 03/18/17] Ejection fraction %: 65 to 70 PFSH Medical History Atherosclerosis of [place] coronary artery of [place] heart without angina pectoris (Chronic) Tobacco abuse (Chronic) Syncope and collapse (Resolved) LOVE (acute kidney injury) (Acute) NSTEMI (non-ST elevated myocardial infarction) (Acute) Hypertension (Chronic) Hyperlipidemia (Chronic) Low back pain (Chronic) Surgical History H/O laminectomy (Chronic) History of left heart catheterization (Chronic) Hx of bone graft (Chronic 2015) S/P ORIF (open reduction internal fixation) fracture (Chronic) Family History Father Hypertension Mother Hypertension Social History Smoking Status: Current every day smoker alcohol intake: current alcohol intake frequency: a few times a week Alcohol type: hard liquor substance use type: does not use caffeine: Yes Type: coffee, carbonated beverages what type of physical activity do you participate in: none seatbelt use: always do you feel safe at home: Yes ROS Const Const: Negative for body ache, fever(s), chills, fatigue or weakness ENT ENT: Negative for dizziness Cardio Chest Pain: No Palpitations: Positive for No Edema: None Muscle aches with walking: None Resp Respiratory: Positive for paroxysmal nocturnal dyspnea; negative for SOB with activity, SOB at rest or SOB orthopnea\SOB lying down GI GI: Negative nausea, black,tarry stools, bright, red blood in stools or vomiting blood/hematemesis : Negative for hematuria or frequent nighttime urination/ nocturia Musc Musc: Negative for muscle aches/ myalgia Neuro Neuro: Negative for lightheadedness, Negative for near syncope, Negative for syncope, Negative for orthostatic symptoms, Negative for dizziness, Negative for weakness Endo Endo: Negative for fatigue Cardiology Exam Const Appearance: cooperative, healthy appearing, comfortable and no acute distress Orientation: alert, awake and oriented x3 Head Head: normal to inspection Mouth: oral mucosae normal Neck Neck: no JVD and normal visual inspection Carotids: normal carotid upstroke Chest Chest inspection: normal inspection of the chest and normal respiratory effort Auscultation: Bilateral: Clear to Auscultation Cardio Rate: regular rate Rhythm: regular rhythm Heart sounds: S1 normal and S2 normal GI GI: normal to inspection Neuro General: alert, awake, oriented x3 and CN's II-XI intact bilaterally Skin Skin: no rashes or lesions noted Extremities Pulses: Normal: Right Posterior Tibial Pulse, Left Posterior Tibial Pulse, Right Radial Pulse, Left Radial Pulse Lower Extremity Edema: None: Bilateral Psych Psychological: normal affect Assessment AND Plan 1. Atherosclerosis of [place] coronary artery of [place] heart without angina pectoris I25.10 Ryley - SUKHWINDER Villa Patient denies any chest pain, arm pain, jaw pain, neck pain, shortness of breath, or fatigue suggestive of angina at this time. We will continue to monitor this. We will not make any medication regimen changes and will continue risk factor modification. Patient was reminded of needing to stay on Plavix for 1 year. This is important given her orthopedic ailments and possible surgeries in the future. 2. Syncope and collapse R55 SUKHWINDER Reddy Patient denies any recurrence of this. We will continue to monitor this. 3. Essential hypertension I10; I10; I10 SUKHWINDER Reddy Patient's blood pressure is well-controlled today in the office. We will continue to monitor this. We will not make any medication regimen changes. 4. Mixed hyperlipidemia E78.2; E78.2; E78.2 SUKHWINDER Reddy Most recent lipid panel from December 2016 showed cholesterol: 167, HDL: 57, LDL: 71, and triglycerides: 197. Patient will continue with current cholesterol- lowering medication. She is scheduled to repeat both cholesterol and liver function test in June 2017. 5. Tobacco abuse Z72.0 SUKHWINDER Reddy Patient continues to smoke. She states decreasing total amount smoked per day. She received extensive education regarding the health benefits of smoking cessation. We will continue to support and encourage smoking cessation. Plan Detail Additional Comments - SUKHWINDER Villa Discussed the above patient with Dr. Varela, he agrees with the plan of care. Thank you for allowing us to participate in the patients plan of care, if you have any questions please do not hesitate to call. This note was generated using a voice recognition system and there may be incorrect words, spelling or punctuation that were not noted when reviewing the office note prior to saving. 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 LINE TIER) 04/22/17 1216 <Electronically signed by Julian PRETTY> Date Julian PRETTY 04/23/17 1644<Electronically signed by Ulises Varela MD> Cosigner Signature: Date (if applicable) Ulises Varela MD CC: ORTHOPEDIC VISIT Observed: 04/22/2017 Status: F Source: [place] REPORT 12:13 PM [facility] REPOSITORY [facility] Orthopaedics AND Sports Medicine [address] [place] [address] OFFICE VISIT Date of Service: 04/07/17 MR#: [id number] Acct: [id number] Name: JOHANA YBARRA Rep #: [id number] : 1960 Provider: Rhea Antunez MD Age/Sex: 57/F [place] [facility] [place]: Signed Intake Vital Signs04/13/17 Height 5 ft 5 in 04/13/17 Weight: 215 lb 04/13/17 Body Mass Index (BMI) 35.7 Intake Visit Reasons: Low back pain Accompanied by: Aunt Is patient in pain?: Yes Pain scale (1-10): 6 Allergies baclofen Adverse Reaction (Verified 04/13/17 08:39) LETHARGY Medications Furosemide [Lasix] 20 mg PO DAILY 09/16/16 [History Confirmed 04/13/17] Lisinopril [Zestril] 20 mg PO DAILY 09/16/16 [History Confirmed 04/13/17] Trazodone HCl [Desyrel] 200 mg PO QHS 09/16/16 [History Confirmed 04/13/17] Aspirin [Aspirin, Baby] 81 mg PO DAILY@0800 tab.chew 11/18/16 [Rx Confirmed 04/13/17] Clopidogrel Bisulfate [Plavix] 75 mg PO DAILY 30 Days tab 11/18/16 [Rx Confirmed 04/13/17] Metoprolol Tartrate [Lopressor (beta kusum)] 25 mg PO BID 60 Days tab 11/18/16 [Rx Confirmed 04/13/17] Rosuvastatin Calcium [Crestor] 40 mg PO DAILY 30 Days 11/18/16 [Rx Confirmed 04/13/17] Ibuprofen [Motrin] 800 mg PO TID PRN 11/25/16 [History Confirmed 04/13/17] Oxycodone HCl/Acetaminophen [Percocet 5/325] 1 tab PO TID 11/25/16 [History Confirmed 04/13/17] Tizanidine HCl [Zanaflex] 4 mg PO TID 11/25/16 [History Confirmed 04/13/17] DiphenhydrAMINE [Benadryl] 50 mg PO QHS 01/15/17 [History Confirmed 04/13/17] gabapentin 400 mg capsule 400 mg PO TID 03/18/17 [History Confirmed 04/13/17] PFS Medical History Atherosclerosis of [place] coronary artery of [place] heart without angina pectoris (Chronic) Tobacco abuse (Chronic) Syncope and collapse (Resolved) LOVE (acute kidney injury) (Acute) NSTEMI (non-ST elevated myocardial infarction) (Acute) Hypertension (Chronic) Hyperlipidemia (Chronic) Low back pain (Chronic) Surgical History H/O laminectomy (Chronic) History of left heart catheterization (Chronic) Hx of bone graft (Chronic 2014) S/P ORIF (open reduction internal fixation) fracture (Chronic) Family History Father Hypertension Mother Hypertension Social History Smoking Status: Current every day smoker alcohol intake: current alcohol intake frequency: a few times a week Alcohol type: hard liquor substance use type: does not use caffeine: Yes Type: coffee, carbonated beverages what type of physical activity do you participate in: none seatbelt use: always do you feel safe at home: Yes HPI Low back pain: Details: JOHANA YBARRA returns today in follow up for 15% low back and 85% right buttock, anterolateral thigh, anterior knee and lateral calf pain since 12/2016. She was originally referred for left buttock and posterior thigh pain that she has had for 10 years, but that was not her acute complaint at her last clinic visit. Since then, she has seen Dr. Armenta, who recommended no additional surgical intervention. She states her pain is worse with walking and lifting her leg. It is improved with laying on her side or sitting. She had an injection on 01/2017 on the right at L4, L5 and LS1 per the patient that helped for [address] Rogers. She takes percocet 5/325 mg TID, xanaflex TID, NSAIDs and gabapentin 800mg TID. She is on plavix. She denies bowel or bladder issues. She has used a cane since . She complains of right hand weakness for the past 2 weeks without pain or lhermitte's. She is unable to participate in physical therapy due to the severe pain. She is accompanied by her friend, who is caring for her. ROS Const Reports system reviewed and no additional complaints, except as docu, Reports weakness Eyes Reports system reviewed and no additional complaints, except as docu ENT Reports system reviewed and no additional complaints, except as docu Card Reports system reviewed and no additional complaints, except as docu Resp Reports system reviewed and no additional complaints, except as docu GI Reports system reviewed and no additional complaints, except as docu Musc Reports body aches, Reports back pain, Reports as per HPI, Reports tingling, Reports stiffness, Reports decreased muscle mass, Reports joint pain, Reports abnormal walking, Reports numbness, Reports radiating pain into limb, Reports muscle weakness Skin/Breast Reports system reviewed and no additional complaints, except as docu Neuro Yes system reviewed and no additional complaints, except as docu, Yes tingling, Yes abnormal walking, Yes numbness, Yes radiating pain, Yes weakness Psych Reports system reviewed and no additional complaints, except as docu Endo Reports system reviewed and no additional complaints, except as docu Ortho Exam Spine Neuro: Yes Rivas's (negative bilaterally) and Spurling's ([place] bilaterally) General: alert, oriented x3 Gait: antalgic, other (able to severino on heels and toes with assistance) Sensory Exam: no sensory deficits noted DTR's: Rt Patellar: 2+, Lt Patellar: 2+, Rt Ankle: 2+, Lt Ankle: 2+ Plantar Reflexes: Downgoing: bilateral SPINE TESTING CERVICAL THORACIC LUMBAR SLR: Right Musculoskeletal General: Yes decreased ROM Cervical Spine: cervical ROM normal, other (no significant tenderness throughout.) Thoracic/Lumbar Spine: paraspinal tenderness, pain with thoraco- lumbar ROM, thoraco-lumbar ROM limited, lumbar spinal tenderness (tender diffusely), other (2+ dp and pt pulses.), straight leg raise positive (on the right) Strength 0=absent - 5=normal R Hip Flexor (L1-3): 5, L Hip Flexor (L1-3): 5, R Quadriceps (L2-4): 5, L Quadriceps (L2-4): 5, R Anterior Tibialis (L4-5): 5, L Anterior Tibialis (L4-5): 5, R Hamstrings (L5-S1): 5, L Hamstrings (L5-S1): 5, GS (S1): 5, L GS (S1): 5, R Peroneals (S1): 5, L Peroneals (S1): 5 Assessment AND Plan 1. Right leg pain M79.604 Plan I/R/P: 1. back pain 2. right leg pain 3. history of prior right L4-5 and L5-S1 hemilaminotomy 4. nicotine use Ms. Ybarra presents with back and right leg pain that is severe. She was seen by Dr. Amrenta for evaluation of her right hip, which was negative. Recommend MRI lumbar spine with and without contrast given her worsening pain. Will also obtain flexion and extension XR lumbar spine. Follow up after MRI or sooner if issues arise. She will work aggressively with Dr. Rogers for control of her severe pain. Plan of care discussed. All questions answered. She is in understanding. 2. Chronic bilateral low back pain with right-sided sciatica M54.41; G89.29 Plan Detail Other Orders Orders: 04/22/17 1213 <Electronically signed by Rhea Antunez MD> Date Rhea Antunez MD Cosigner Signature: Date (if applicable) CC: Barney Duffy; Mackenzie Rogers MD ALLERGIES ALLERGIES DATE TYPE / CODE NAME / CODE REACTION SEVERITY SOURCE 03/26/2018 Drug baclofen/F00 lethargy Unknown [facility] Allergy/4160 [id number]([place] [id number](SNOMED RM) Repository CT) 03/26/2018 Drug adhesive/F00 Other Unknown [facility] Allergy/4160 [id number]([place] [id number](SNOMED RM) Repository CT) ENCOUNTERS ENCOUNTERS ADMIT/DISCHARGE ACCOUNT NUMBER ADMITTING ENCOUNTER LOCATION SOURCE CLASS 04/12/2018 [id number] Ambulatory [facility] ding:LAB Repository 03/26/2018/03/26/20 [id number] Ambulatory BMSBuilding: Mikal 18 BMS.[facility] Repository 03/18/2018/03/19/20 [id number] [facility], Ambulatory [address] ding:PCURoom Repository : VBE333Pkr: 1 03/18/2018 [id number] Kalyani, Ambulatory BMSBuilding: Mikal [place] BMS.[facility] Repository 03/18/2018 [id number] [facility], Ambulatory BMSBuilding: [place]al [place] BMS.[facility] Repository 03/18/2018/03/18/20 [id number] Ambulatory BMSBuilding: Mikal 18 BMS.[facility] Repository 03/12/2018/03/12/[id number] Randell Emergency [place] [address] Guerita Coley lding:A1E [facility] DeptRoom: [facility] A1E Y9MJLud: Repository A1E [id number] 03/11/2018/03/11/20 [id number] Emergency [address] ding:ED Repository 03/09/2018/03/09/20 [id number] Ambulatory BMSBuilding: Mikal 18 BMS.[facility] Repository 03/05/2018/03/05/20 [id number] Ambulatory BMSBuilding: Mikal 18 BMS.[facility] Repository 02/23/2018/02/24/20 [id number] Ambulatory BMSBuilding: Mikal 18 BMS.[facility] Repository 02/04/2018/02/05/20 [id number] Ambulatory BMSBuilding: Mikal 18 BMS.[facility] Repository 11/24/2017/11/26/19 [id number] Pita, Inpatient Mikal Mikal 18 Enrique Colindres [facility] ding:HL7Pdbn Repository : ZV128Txl: 1 10/29/2017/10/31/19 [id number] Kalyani, Ambulatory Mik[place] 18 [place] [facility] ding:PCURoom Repository : [id number]: 1 10/29/2017 [id number] Kalyani, Ambulatory BMSBuilding: [place] BMS.[facility] Repository 10/29/2017 [id number] Kalyani, Ambulatory BMSBuilding: Mikal [place] BMS.[facility] Repository 10/20/2017 [id number] Ambulatory BMSBuilding: Mikal BMS.[facility] Repository 10/12/2017 [id number] Ambulatory [facility] ding:LAB Repository 10/09/2017/10/11/19 [id number] Emergency [address] ding:ED Repository 09/17/2017/09/18/19 [id number] Ambulatory BMSBuilding: Mikal 18 BMS.[facility] Repository 09/03/2017/09/04/19 [id number] Ambulatory [address] ding:PT Repository 08/12/2017/08/13/19 [id number] Emergency [address] ding:ED Repository 08/03/2017 [id number] Ambulatory [facility] ding:CVS Repository 07/22/2017 [id number] Ambulatory [facility] ding:PSN Repository 07/21/2017/07/22/19 [id number] Ambulatory BMSBuilding: [place] 18 BMS.[facility] Repository 07/17/2017/04/24 [id number] Tereletsky, Inpatient Mik[place] 18 [place] Encounter [facility] ding:NR0Eyyv Repository : RY172Lfj: 1 07/17/2017 [id number] Tereletsky, Ambulatory BMSBuilding: [place] BMS.[facility] Repository 07/17/2017 [id number] Tereletsky, Ambulatory BMSBuilding: [place] BMS.[facility] Repository 07/17/2017 [id number] Tereletsky, Ambulatory BMSBuilding: [place] BMS.[facility] Repository 07/17/2017 [id number] Tereletsky, Ambulatory BMSBuilding: [place] BMS.[facility] Repository 07/17/2017 [id number] Tereletsky, Ambulatory BMSBuilding: [place] BMS.[facility] Repository 06/09/2017/06/10/19 [id number] Ambulatory BMSBuilding: Mikal 18 BMS.Counts include 234 beds at the [facility] Repository 05/06/2017 [id number] Ambulatory [place] [facility] ding:MRI Repository 04/07/2017/04/07/19 [id number] Ambulatory BMSBuilding: [place] 18 BMS.Counts include 234 beds at the [facility] Repository 03/18/2017/03/18/20 [id number] Ambulatory BMSBuilding: [place] 17 BMS.[facility] Repository PAYERS PAYERS ENCOUNTER GUARANTOR PAYER SUBSCRIBER SOURCE 04/12/2018 JACQUALIN L Primary JACQUALIN L Mikalyolanda [id number] [facility] Number: [id number], [place] [id number] Repository 10088Icd: [phone]) Date:2018-04-12P O [phone] () [address]ATTN: [place] [address]PZ: 04/12/2018 Secondary NOT GIVENUNK [place] Insurance:SELF PAY [facility] Number: Effective Repository Date:2018-04-12 03/26/2018 JACQUALIN L Primary JACQUALIN L [place] [id number] Insurance:[facility] Number: [id number], [place] [id number] Repository 837[address]Aux: ([phone]) Date:2018-03-19P O [phone] (HP) [address]ATTN: [place] [address]DG: 03/26/2018 Secondary NOT GIVENUNK [place] Insurance:SELF PAY [facility] Number: Effective Repository Date:2018-03-24 03/18/2018 JACQUALIN L Primary JACQUALIN L [place] [id number] Insurance:CARESOURCEP GRASSMANDOB: [facility] Number: [id number], [place] [id number] Repository 82226Zij: (440) Date:2018-03-18P O [phone] () [address]ATTN: [place] [address]ET: 03/18/2018 Secondary NOT GIVENUNK [place] Insurance:SELF PAY [facility] Number: Effective Repository Date:2018-03-18 03/18/2018 JACQUALIN L Primary JACQUALIN L [place] [id number] Insurance:CARESOURCEP GRASSMANDOB: [facility] Number: [id number], [place] [id number] Repository 63695Sgl: (440) Date:2018-03-18P O [phone] () [address]ATTN: [place] [address]FE: 03/18/2018 Secondary NOT GIVENUNK [place] Insurance:SELF PAY [facility] Number: Effective Repository Date:2018-03-18 03/18/2018 JACQUALIN L Primary JACQUALIN L [place] [id number] Insurance:CARESOURCEP GRASSMANDOB: [facility] Number: [id number], [place] [id number] Repository [address]Oiu: (440) Date:2018-03-18P O [phone] () [address]ATTN: [place] [address]DN: 03/18/2018 Secondary NOT GIVENUNK [place] Insurance:SELF PAY [facility] Number: Effective Repository Date:2018-03-18 03/18/2018 JACQUALIN L Primary JACQUALIN L [place] [id number] Insurance:CARESOURCEP GRASSMANDOB: [facility] Number: [id number], [place] [id number] Repository [address]Gbq: (440) Date:2018-02-04 O [phone] () [address]ATTN: [place] [address]GB: 03/18/2018 Secondary NOT GIVENUNK [place] Insurance:SELF PAY [facility] Number: Effective Repository Date:2018-03-18 03/12/2018 Primary JACQUALIN [facility] Insurance:CareSourceP GRASSMANDOB: [facility] Number: [id number] [id number] [address] [place] [address] Repository Date:Plan [place], [place] Name:[facility] [address] [address]Ftt: [phone] [address], [place] [phone] (HP) [address]67[address]XX: 03/11/2018 JACQUALIN L Primary JACQUALIN L [place] [id number] Insurance:CARESOURCEP GRASSMANDOB: [facility] Number: [id number], [place] [id number] Repository 799[address]Uob: (440) Date:2018-03-11 O [phone] () [address]ATTN: [place] [address]EZ: 03/11/2018 Secondary NOT GIVENUNK [place] Insurance:SELF PAY [facility] Number: Effective Repository Date:2018-03-11 03/09/2018 JACQUALIN L Primary JACQUALIN L [place] [id number] Insurance:CARESOURCEP GRASSMANDOB: [facility] Number: [id number], [place] [id number] Repository [address]54[address]Nib: (440) Date:2018-03-09P O [phone] (HP) [address]ATTN: [place] [address]IB: 03/09/2018 Secondary NOT GIVENUNK [place] Insurance:SELF PAY [facility] Number: Effective Repository Date:2018-03-09 03/05/2018 JACQUALIN L Primary JACQUALIN L [place] [id number] Insurance:CARESOURCEP GRASSMANDOB: [facility] Number: [id number], [place] [id number] Repository [address]Unc: (440) Date:2017-09-17P O [phone] (HP) [address]ATTN: [place] [address]TL: 03/05/2018 Secondary NOT GIVENUNK [place] Insurance:SELF PAY [facility] Number: Effective Repository Date:2018-03-05 02/23/2018 JACQUALIN L Primary JACQUALIN L [place] [id number] Insurance:CARESOURCEP GRASSMANDOB: [facility] Number: [id number], [place] [id number] Repository [address]Oto: (440) Date:2018-02-04P O [phone] (HP) [address]ATTN: [place] [address]WQ: 02/23/2018 Secondary NOT GIVENUNK [place] Insurance:SELF PAY [facility] Number: Effective Repository Date:2018-02-23 02/04/2018 JACQUALIN L Primary JACQUALIN L [place] [id number] Insurance:CARESOURCEP GRASSMANDOB: [facility] Number: [id number], [place] [id number] Repository 944[address]Ycx: (440) Date:2018-01-19P O [phone] (HP) [address]ATTN: [place] [address]EC: 02/04/2018 Secondary NOT GIVENUNK [place] Insurance:SELF PAY [facility] Number: Effective Repository Date:2018-02-04 11/24/2017 JACQUALIN L Primary JACQUALIN L [place] [id number] Insurance:CARESOURCEP GRASSMANDOB: [facility] Number: [id number], [place] [id number] Repository 78[address]Vzs: (440) Date:2017-11-09P O [phone] () [address]ATTN: [place] [address]IF: 11/24/2017 Secondary NOT GIVENUNK [place] Insurance:SELF PAY [facility] Number: Effective Repository Date:2017-11-09 10/29/2017 JACQUALIN L Primary JACQUALIN L [place] [id number] Insurance:CARESOURCEP GRASSMANDOB: [facility] Number: [id number], [place] [id number] Repository [address]Iyc: (440) Date:2017-10-29P O [phone] () [address]ATTN: [place] [address]ZA: 10/29/2017 Secondary NOT GIVENUNK [place] Insurance:SELF PAY [facility] Number: Effective Repository Date:2017-10-29 10/29/2017 JACQUALIN L Primary JACQUALIN L [place] [id number] Insurance:CARESOURCEP GRASSMANDOB: [facility] Number: [id number], [place] [id number] Repository 327[address]Dhu: (440) Date:2017-10-29P O [phone] () [address]ATTN: [place] [address]AS: 10/29/2017 Secondary NOT GIVENUNK [place] Insurance:SELF PAY [facility] Number: Effective Repository Date:2017-10-29 10/29/2017 JACQUALIN L Primary JACQUALIN L [place] [id number] Insurance:CARESOURCEP GRASSMANDOB: [facility] Number: [id number], [place] [id number] Repository 809[address]Rnf: (440) Date:2017-10-29P O [phone] () [address]ATTN: [place] [address]OY: 10/29/2017 Secondary NOT GIVENUNK [place] Insurance:SELF PAY [facility] Number: Effective Repository Date:2017-10-29 10/20/2017 JACQUALIN L Primary JACQUALIN L [place] [id number] Insurance:CARESOURCEP GRASSMANDOB: [facility] Number: [id number], [place] [id number] Repository 19[address]Sgq: (440) Date:2017-07-21P O [phone] () [address]ATTN: [place] [address]WO: 10/20/2017 Secondary NOT GIVENUNK [place] Insurance:SELF PAY [facility] Number: Effective Repository Date:2017-07-21 10/12/2017 JACQUALIN L Primary JACQUALIN L [place] [id number] Insurance:CARESOURCEP GRASSMANDOB: [facility] Number: [id number], [place] [id number] Repository 345[address]Kgw: (440) Date:2017-10-12P O [phone] () [address]ATTN: [place] [address]IW: 10/12/2017 Secondary NOT GIVENUNK [place] Insurance:SELF PAY [facility] Number: Effective Repository Date:2017-10-12 10/09/2017 JACQUALIN L Primary JACQUALIN L [place] [id number] Insurance:CARESOURCEP GRASSMANDOB: [facility] Number: [id number], [place] [id number] Repository [address]95[address]Mne: (440) Date:2017-10-09P O [phone] (HP) [address]ATTN: [place] [address]PZ: 10/09/2017 Secondary NOT GIVENUNK [place] Insurance:SELF PAY [facility] Number: Effective Repository Date:2017-10-09 09/17/2017 JACQUALIN L Primary JACQUALIN L [place] [id number] Insurance:CARESOURCEP GRASSMANDOB: [facility] Number: [id number], [place] [id number] Repository 25[address]Eus: (440) Date:2017-03-18P O [phone] (HP) [address]ATTN: [place] [address]QU: 09/17/2017 Secondary NOT GIVENUNK [place] Insurance:SELF PAY [facility] Number: Effective Repository Date:2017-09-17 09/03/2017 JACQUALIN L Primary JACQUALIN L [place] [id number] Insurance:CARESOURCEP GRASSMANDOB: [facility] Number: [id number], [place] [id number] Repository 713[address]Zzk: (440) Date:2017-07-28P O [phone] () [address]ATTN: [place] [address]JG: 09/03/2017 Secondary NOT GIVENUNK Mik[place] Insurance:SELF PAY [facility] Number: Effective Repository Date:2017-07-28 08/12/2017 JACQUALIN L Primary JACQUALIN L [place] [id number] Insurance:CARESOURCEP GRASSMANDOB: [facility] Number: [id number], [place] [id number] Repository 126[address]Plk: (440) Date:2017-08-12P O [phone] () [address]ATTN: [place] [address]OY: 08/12/2017 Secondary NOT GIVENUNK Mik[place] Insurance:SELF PAY [facility] Number: Effective Repository Date:2017-08-12 08/03/2017 JACQUALIN L Primary JACQUALIN L [place] [id number] Insurance:CARESOURCEP GRASSMANDOB: [facility] Number: [id number], [place] [id number] Repository 835[address]Niw: (440) Date:2017-08-03P O [phone] () [address]ATTN: [place] [address]QR: 08/03/2017 Secondary NOT GIVENUNK Mik[place] Insurance:SELF PAY [facility] Number: Effective Repository Date:2017-08-03 07/22/2017 JACQUALIN L Primary JACQUALIN L [place] [id number] Insurance:CARESOURCEP [facility] Number: [id number], [place] [id number] Repository 779[address]Mol: (440) Date:2017-06-10P O [phone] () [address]ATTN: [place] [address]TC: 07/22/2017 Secondary NOT GIVENUNK [place] Insurance:SELF PAY [facility] Number: Effective Repository Date:2017-06-10 07/21/2017 JACQUALIN L Primary JACQUALIN L Mik[place] [id number] Insurance:CARESOURCEP [facility]: [facility] Number: [id number], [place] [id number] Repository 947[address]Ytu: (440) Date:2017-07-20P O [phone] () [address]ATTN: [place] [address]QV: 07/21/2017 Secondary NOT GIVENUNK Mik[place] Insurance:SELF PAY [facility] Number: Effective Repository Date:2017-07-21 07/17/2017 JACQUALIN L Primary JACQUALIN L [place] [id number] Insurance:CARESOURCEP [facility] Number: [id number], [place] [id number] Repository 62690Fpp: (440) Date:2017-07-16P O [phone] (HP) [address]ATTN: [place] [address]FC: 07/17/2017 Secondary NOT GIVENUNK [place] Insurance:SELF PAY [facility] Number: Effective Repository Date:2017-07-16 07/17/2017 JACQUALIN L Primary JACQUALIN L [place] [id number] Insurance:CARESOURCEP GRASSMANDOB: [facility] Number: [id number], [place] [id number] Repository 16[address]Dja: (440) Date:2017-07-16P O [phone] (HP) [address]ATTN: [place] [address]ZT: 07/17/2017 Secondary NOT GIVENUNK [place] Insurance:SELF PAY [facility] Number: Effective Repository Date:2017-07-17 07/17/2017 JACQUALIN L Primary JACQUALIN L Mikal [id number] Insurance:CARESOURCEP GRASSMANDOB: [facility] Number: [id number], [place] [id number] Repository 95655Gyg: (440) Date:2017-07-16P O [phone] (HP) [address]ATTN: [place] [address]AB: 07/17/2017 Secondary NOT GIVENUNK [place] Insurance:SELF PAY [facility] Number: Effective Repository Date:2017-07-17 07/17/2017 JACQUALIN L Primary JACQUALIN L Mik[place] [id number] Insurance:CARESOURCEP GRASSMANDOB: [facility] Number: [id number], [place] [id number] Repository 416[address]Iza: (440) Date:2017-07-16P O [phone] (HP) [address]ATTN: [place] [address]PA: 07/17/2017 Secondary NOT GIVENUNK Mik[place] Insurance:SELF PAY [facility] Number: Effective Repository Date:2017-07-17 07/17/2017 JACQUALIN L Primary JACQUALIN L [place] [id number] Insurance:CARESOURCEP GRASSMANDOB: [facility] Number: [id number], [place] [id number] Repository 404[address]Cym: (440) Date:2017-07-16P O [phone] () [address]ATTN: [place] [address]VY: 07/17/2017 Secondary NOT GIVENUNK [place] Insurance:SELF PAY [facility] Number: Effective Repository Date:2017-07-17 07/17/2017 JACQUALIN L Primary JACQUALIN L [place] [id number] Insurance:CARESOURCEP GRASSMANDOB: [facility] Number: [id number], [place] [id number] Repository 130[address]Ieh: (841) Date:2017-07-16P O [phone] () [address]ATTN: [place] [address]RM: 07/17/2017 Secondary NOT GIVENUNK Mik[place] Insurance:SELF PAY [facility] Number: Effective Repository Date:2017-07-17 06/09/2017 JACQUALIN Primary JACQUALIN Mikal [id number] Insurance:CARESOURCEP GRASSMANDOB: [facility] Number: [id number], [place] [id number] Repository [address]Yke: ([phone]) Date:2017-05-25P O [phone] () [address]ATTN: [place] [address]WG: 06/09/2017 Secondary NOT GIVENUNK Mikal Insurance:SELF PAY [facility] Number: Effective Repository Date:2017-05-25 05/06/2017 JACQUALIN Primary JACQUALIN Mikal [id number] Insurance:CARESOURCEP GRASSMANDOB: Community CATHIE olicy Number: [id number], [place] [id number] Repository 29[address]Ptl: [phone]) Date:2017-05-04P O [phone] (HP) [address]ATTN: [place] [address]PR: 05/06/2017 Secondary NOT GIVENUNK Mikal Insurance:SELF PAY [facility] Number: Effective Repository Date:2017-05-04 04/07/2017 JACQUALIN Primary JACQUALIN Mikal [id number] Insurance:CARESOURCEP GRASSMANDOB: [facility] Number: [id number], [place] [id number] Repository [address]Mym: [phone]) Date:2017-02-28P O [phone] (HP) [address]ATTN: [place] [address]FL: 04/07/2017 Secondary NOT GIVENUNK Mikal Insurance:SELF PAY [facility] Number: Effective Repository Date:2017-02-28 03/18/2017 JACQUALIN Primary JACQUALIN [place] [id number] Insurance:CARESOURCEP GRASSMANDOB: [facility] Number: [id number], [place] [id number] Repository [address]Hia: [phone]) Date:2017-02-28P O [phone] (HP) [address]ATTN: [place] [address]QS: 03/18/2017 Secondary NOT GIVENUNK Mikal Insurance:SELF PAY [facility] Number: Effective Repository Date:2017-02-28
== END 2018-03-11 22:45 | disposition left against medical advice (07) ==
LOC: ED 20:03
PROVIDERS: Emergency Provider Emergency Medicine; Family Provider Internal Medicine; PCP Internal Medicine
DX: N17.9 Acute kidney failure, unspecified (principal); E86.0 Dehydration; I10 Essential (primary) hypertension; T42.4X1A Poisoning by benzodiazepines, accidental (unintentional), initial encounter; R29.6 Repeated falls; G89.4 Chronic pain syndrome; Z96.641 Presence of right artificial hip joint; Z79.891 Long term (current) use of opiate analgesic; Z79.899 Other long term (current) drug therapy
CPT/HCPCS: 71045; 72100; 73502; 73630; 80048; 84484; 85025; 93005; 96360; 96361; 99285; J7030; J7040; A4216

== ENCOUNTER 2018-03-18 16:25 | Observation (INO) | payer MEDICAID, SELFPAY ==
[2018-03-18] VITALS (7 sets, daily range): BP systolic 75–101; BP diastolic 39–72; PULSE 72–79; RESP 13–19; TEMP 36.3–36.7; O2SAT 93–96; BMI 32.2; BMI 34.1; BMI 33.5
[2018-03-18 17:13] LABS: Absolute Lymphocyte Count 2.71 X10^3/ul (0.83-4.51); Absolute Neutrophil Count 4.1 X10^3/uL (2.0-7.7); Basophil# 0.01 X10^3/uL; Basophil% 0.1 % (0-1); Eosinophil# 0.14 X10^3/uL; Eosinophils% 1.8 % (0-5); Hematocrit 35.4 % (37-47); Hemoglobin 11.2 g/dl (12.0-15.0); Lymphocyte # 2.71 X10^3/ul (4.0); Lymphocyte % 35.8 % (19-41); Mean Corp Hgb Conc 31.6 g/gl (32-36); Mean Corpuscular Hgb 27.3 pg (27.0-32.0); Mean Corpuscular Volume 86.3 fL (81-99); Mean Platelet Vol. 9.5 fl (6.2-12.0); Monocyte% 7.9 % (0-10); Neutrophil # 4.09 X10^3/uL (2.7-7.7); Neutrophil % 54.1 % (47-70); Platelet Count 261 K/mm3 (150-450); RBC Distribution Width CV 15.8 % (11.6-14.6); RBC Distribution Width SD 50.5 fl (35.1-43.9); White Blood Count 7.6 K/mm3 (4.4-11.0)
[2018-03-18 17:14] LABS: POSITIVE COUNT NO; POSITIVE DIFFERENTIAL NO; POSITIVE MORPHOLOGY NO
[2018-03-18 17:19] LABS: Anion Gap 4 (5-15); BUN 16 mg/dL (7-18); BUN/Creat Ratio 14.8 RATIO (10-20); Calcium,Total 8.5 mg/dL (8.5-10.1); Chloride 102 mmol/L (98-107); Creatinine, Serum 1.08 mg/dL (0.55-1.02); EST Glomerular Filtration Rate 56 mL/min (>60); Est Glom Filt Rate - Afr Amer 67 mL/min (>60); Estimated Creatinine Clearance 52.34 ml/min; Glucose 88 mg/dL (74-106); Potassium 4.5 mmol/L (3.5-5.1); Sodium Level 137 mmol/L (136-145)
--- NOTE | 2018-03-18 17:37 | ED.VISSUMM ---
- ER Visit Summary Date of Service: 03/18/18 Chief Complaint: Patient presents from PCPs office because of hypotension. History of Present Illness: The patient is a 57 F who was seen last week and recommendation for admission. She declined. She attended her court hearing for disability. She was admitted from the court to [facility]. She was admitted for acute renal failure. She states she was discharged when her creatinine returned to normal. She is presently taking 20 mg of lisinopril, 20 mg of Lasix and 25 mg of metoprolol twice daily. She presently has no symptoms. She denies constitutional, HEENT, cardiac, respiratory, GI symptoms. She denies neurologic symptoms. Her only complaint is cough, which is chronic and nonproductive. She is a smoker of 1/2 pack/day. This is a decrease from 2 packs/day. She does have history of coronary disease/[place] and hypertension. She presented with single episode when she was diagnosed with [place]. Physical Examination: Vital signs remarkable for blood pressure 101/72. Repeat blood pressure 125 systolic. Head is atraumatic normocephalic. Pupils are equal round reactive. Extraocular muscles are intact. TMs are pearly white with landmarks noted. Nares patent with no drainage. Posterior pharynx without erythema or exudate. Uvula is midline. There is no dysphonia or dysphasia. Trachea is midline. There is no stridor with auscultation of the neck. Heart is regular without murmur, gallop or rub. S1 and S2 are normal. Lungs are clear to auscultation with good movement of air bilaterally. Abdomen is soft and nontender. There is no guarding or peritoneal findings. There is no palpable pulsatile mass. There is no abdominal bruit. Gonzalez sign is negative. Negative Rovsing sign. There is no evidence of inguinal or umbilical hernia. There is no asymmetry, swelling, discoloration, leg vein distention, palpable cords or tenderness along the distribution of the deep venous system. Scar noted left ankle secondary to fracture dislocation requiring ORIF. DP and PT pulse diminished bilaterally. Absence of hair on toes. (Patient denies symptoms of claudication.) Test Results: EKG was obtained and interpreted by me as normal. Ventricular rate 67. [place] interval, QRS duration and QT interval normal. [place] is normal. H&H 11.2 and 35.4. Creatinine is 1.08 which is a marked improvement from prior. Troponin less than 0.015. Emergency Department Course and Treatment: EKG was obtained since patient prior to presentation for [place] was syncope/multiple falls from hypotension. She also was in A. fib at that time. CBC was obtained today for white count and H&H. BMP to assess electrolytes and renal function since she signed out AMA last week. Troponin since this has been a problem for several days to evaluate for atypical presentation of cardiac ischemia. Treatment Plan: Decrease lisinopril to 10 mg a day, Lasix 20 mg every other day and follow-up with her PCP Disposition: Discharged to home in stable improved condition Impression: Orthostatic hypotension secondary to adverse medication reaction This note was generated with [employer] dictation software. It may contain incorrect words, spelling, and punctuation that were not noted in review of the chart prior to signing ED Disposition - Plan for ED Patient: Disposition: Home or Assisted Living Chief Complaint: Hypotension Instructions: ED Hypotension Orthostatic Referrals: Ana Oates MD [Primary Care Provider] - 5-7 Days Additional Instructions: Decrease lisinopril to 10 mg a day Take Lasix 20 mg tablet every other day Follow-up with Dr. Oates in 5-7 days
--- NOTE | 2018-03-18 17:43 | ED.DCSUM_ITS ---
- ER Visit Summary Date of Service: 03/18/18 Chief Complaint: Patient presents from PCPs office because of hypotension. History of Present Illness: The patient is a 57 F who was seen last week and recommendation for admission. She declined. She attended her court hearing for disability. She was admitted from the court to [facility]. She was admitted for acute renal failure. She states she was discharged when her creatinine returned to normal. She is presently taking 20 mg of lisinopril, 20 mg of Lasix and 25 mg of metoprolol twice daily. She presently has no symptoms. She denies constitutional, HEENT, cardiac, respiratory, GI symptoms. She denies neurologic symptoms. Her only complaint is cough, which is chronic and nonproductive. She is a smoker of 1/2 pack/day. This is a decrease from 2 packs/day. She does have history of coronary disease/[place] and hypertension. She presented with single episode when she was diagnosed with [place]. Physical Examination: Vital signs remarkable for blood pressure 101/72. Repeat blood pressure 125 systolic. Head is atraumatic normocephalic. Pupils are equal round reactive. Extraocular muscles are intact. TMs are pearly white with landmarks noted. Nares patent with no drainage. Posterior pharynx without erythema or exudate. Uvula is midline. There is no dysphonia or dysphasia. Trachea is midline. There is no stridor with auscultation of the neck. Heart is regular without murmur, gallop or rub. S1 and S2 are normal. Lungs are clear to auscultation with good movement of air bilaterally. Abdomen is soft and nontender. There is no guarding or peritoneal findings. There is no palpable pulsatile mass. There is no abdominal bruit. Gonzalez sign is negative. Negative Rovsing sign. There is no evidence of inguinal or umbilical hernia. There is no asymmetry, swelling, discoloration, leg vein distention, palpable cords or tenderness along the distribution of the deep venous system. Scar noted left ankle secondary to fracture dislocation requiring ORIF. DP and PT pulse diminished bilaterally. Absence of hair on toes. (Patient denies symptoms of claudication.) Test Results: EKG was obtained and interpreted by me as normal. Ventricular rate 67. SD interval, QRS duration and QT interval normal. [place] is normal. H&H 11.2 and 35.4. Creatinine is 1.08 which is a marked improvement from prior. Troponin less than 0.015. Emergency Department Course and Treatment: EKG was obtained since patient prior to presentation for [place] was syncope/multiple falls from hypotension. She also was in A. fib at that time. CBC was obtained today for white count and H&H. BMP to assess electrolytes and renal function since she signed out AMA last week. Troponin since this has been a problem for several days to evaluate for atypical presentation of cardiac ischemia. Treatment Plan: Decrease lisinopril to 10 mg a day, Lasix 20 mg every other day and follow-up with her PCP Disposition: Discharged to home in stable improved condition Impression: Orthostatic hypotension secondary to adverse medication reaction This note was generated with [employer] dictation software. It may contain incorrect words, spelling, and punctuation that were not noted in review of the chart prior to signing ED Disposition - Plan for ED Patient: Disposition: Home or Assisted Living Chief Complaint: Hypotension Instructions: ED Hypotension Orthostatic Referrals: Ana Oates MD [Primary Care Provider] - 5-7 Days Additional Instructions: Decrease lisinopril to 10 mg a day Take Lasix 20 mg tablet every other day Follow-up with Dr. Oates in 5-7 days
[2018-03-18] MEDS: 0.9% Normal Saline 1,000 ML 1000 ML IV (18:02)
--- NOTE | 2018-03-18 19:22 | PCM.HP.STD ---
Problem List (1) Hypotension Status: Acute Qualifiers: Hypotension type: hypotension due to drug Qualified Code(s): I95.2 - Hypotension due to drugs History of Present Illness Date of Admission: 03/18/18 Chief Complaint: Hypotension The patient is a 57 year old F seen in the emergency room at [facility] after she was sent to the ER for evaluation from her physician's office due to dizziness and low blood pressure obtain in her physician's office. Patient denies any chest pain, shortness of breath, cough, fever, or chills. Evaluation in the emergency room here initially revealed her blood pressure to be 101/72, subsequently her blood pressure was noted to be 75/48 and then 85/54. Patient's EKG showed a sinus rhythm at 67, no acute ischemic changes were noted. Labs were obtained on the patient, CBC was remarkable for hemoglobin of 11.2, patient's chemistry showed an elevated creatinine at 1.08, patient's troponin was normal. Patient was given approximately 500 cc of normal saline but despite this, the patient's blood pressure remained in the 80s systolic. ER physician felt that the patient's hypotension was due to her blood pressure medications, patient will be placed and observation status on PCU for hypotension and her blood pressure medications will be held. She will be given IV fluids and reevaluated in the morning. Past Medical History Past Medical History (Chronic Problems): Chronic Problems (Last Reviewed 03/18/18 @ 15:27 by Soila Marsh) Generalized anxiety disorder with panic attacks (Chronic) Vision problems (Chronic) Osteoarthritis (Chronic) Lump of breast, left (Chronic) Atherosclerosis of [place] coronary artery of [place] heart without angina pectoris (Chronic) Tobacco abuse (Chronic) H/O laminectomy (Chronic) Hypertension (Chronic) Hyperlipidemia (Chronic) Low back pain (Chronic) Medical History: Medical History (Last Reviewed 03/18/18 @ 15:27 by Soila Marsh) Fracture tibia/fibula (Resolved) S82.209A, S82.409A Left 11/29/2014 Myocardial infarction (Resolved) I21.9 10/2016 Vision problems (Chronic) H54.7 Pneumonia (Resolved) J18.9 Osteoarthritis (Chronic) M19.90 Lump of breast, left (Chronic) N63.20 UTI (urinary tract infection) (Resolved) N39.0 Atrial fibrillation (Resolved) I48.91 Atherosclerosis of [place] coronary artery of [place] heart without angina pectoris (Chronic) I25.10 Tobacco abuse (Chronic) Z72.0 Syncope and collapse (Resolved) R55 LOVE (acute kidney injury) (Resolved) N17.9 Hypertension (Chronic) I10 Hyperlipidemia (Chronic) E78.5 Low back pain (Chronic) M54.5 Allergies adhesive Adverse Reaction (Verified 03/18/18 15:25) Other baclofen Adverse Reaction (Verified 03/18/18 15:25) LETHARGY Home Medications: Ambulatory Orders Medication Instructions Recorded DiphenhydrAMINE [Benadryl] 50 mg PO QHS 01/15/17 Aspirin E.C. [Ecotrin] 81 mg PO DAILY@0800 10/29/17 Metoprolol Tartrate [Lopressor 25 mg PO BID 10/29/17 (beta kusum)] Clopidogrel Bisulfate [Plavix] 75 mg PO DAILY 11/13/17 Rosuvastatin Calcium [Crestor] 40 mg PO DAILY 11/13/17 gabapentin 800 mg tablet 800 mg PO 4X/DAY tab 02/04/18 hydrocodone 7.5 mg-acetaminophen 1 tab PO Q8H tab 02/04/18 325 mg tablet trazodone 100 mg tablet 200 mg PO QHS #60 tab 02/04/18 lorazepam 0.5 mg tablet 0.5 mg PO QD-BID PRN #30 tab 02/23/18 Acetaminophen [Tylenol] 1,000 mg PO Q8 PRN 03/18/18 Buspirone HCl 10 mg PO DAILY 03/18/18 Buspirone HCl 20 mg PO BID 03/18/18 Furosemide 40 mg PO DAILY 03/18/18 Lisinopril [Zestril] 20 mg PO DAILY 03/18/18 Tizanidine HCl 4 mg PO TID 03/18/18 Surgical History: Surgical History (Last Reviewed 03/18/18 @ 15:27 by Soila Marsh) H/O laminectomy (Chronic) Z98.890 History of splenectomy Z90.81 2005 History of total right hip replacement Z96.641 11/24/17 History of left heart catheterization Z98.890 11/17/2016 PRABHAKAR mid RCA and prox LAD Hx of bone graft Onset Date: ~2014 Z98.890 S/P ORIF (open reduction internal fixation) fracture Z96.7, Z87.81 tib/fib Surgical History: herniorrhaphy, hysterectomy, - - laminectomy, left tib-fib fracture with open reduction secondary to trauma, coronary artery stents ?2, left breast biopsy Psychiatric History: No pertinent psych hx 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 Lives: With Family Smoking Status: Current every day smoker Tobacco Use: Cigarettes Alcohol: None Drugs: None - *Family History Maternal Family History: Family History (Last Reviewed 03/18/18 @ 15:27 by Soila Marsh) Father Hypertension Bowel disease Heart disease Kidney disease Mother Hypertension Arthritis Bowel disease Colon cancer Heart disease High cholesterol Grandmother Arthritis Breast cancer Brain tumor Lung cancer Grandfather Myocardial infarction History Items: Diabetes Paternal Family History: Family History (Last Reviewed 03/18/18 @ 15:27 by Soila Marsh) Father Hypertension Bowel disease Heart disease Kidney disease Mother Hypertension Arthritis Bowel disease Colon cancer Heart disease High cholesterol Grandmother Arthritis Breast cancer Brain tumor Lung cancer Grandfather Myocardial infarction History Items: Hypertension Review of Systems Constitutional: Denies: Anorexia, Chills, Fever, Night Sweats, Malaise, Weakness, Weight Change, Fatigue Eyes: Denies: Cataracts, Conjunctivae Inflammation, Double vision, Drainage HEENT: Denies: Difficulty Swallowing, Dysphasia, Ear Pain, Eye Pain, Hard of Hearing, Hearing Changes, Nasal bleeding, Nasal Congestion, Post Nasal Drip Cardiovascular: Reports: Light Headedness. Denies: Chest Pain, Claudication, Chest Pressure, Chest Tightness, Edema, Heaviness, Palpitations Respiratory: Denies: Cough, Hemoptysis, Pleuritic Pain, Shortness of Breath, Shortness of breath at rest, Shortness of breath upon exertion Gastrointestinal: Denies: Abdominal Pain, Constipation, Diarrhea, Hematemesis, Hematochezia, Nausea, Melena, Vomiting Genitourinary: Denies: Dysuria, Frequency, Hematuria, Hesitancy, Incontinence, Urgency Gynecological: Denies: Breast symptoms Musculoskeletal: Denies: Foot Pain, Hand Pain, Joint Pain, Joint stiffness, Joint swelling, Joint Tenderness, Leg Pain Skin: Denies: Dryness, Pruritis, Rash Neurological: Denies: Blurred vision, Double vision, Change in Speech, Slurred speech, Difficulty swallowing, Focal weakness, Incoordination, Numbness, Tingling, Tremor Psychiatric: Denies: Anxiety, Depression, Homicidal Ideations, Suicidal Ideations Endocrine: Denies: Change in Body Habitus, Heat/ Cold Intolerance, Polydipsia, Polyuria Hematologic/ Lymphatic: Denies: Adenopathy, Anemia, Easy Bruising, Easy Bleeding, Petechiae, Purpura VTE Information - Inpt Only VTE Present on Admission: No VTE Mechan Device Prophylaxis: SCD's VTE Pharm Prophylaxis ordered?: No Reason prophylaxis not ordered:: Treatment Not Indicated - Physical Exam General: Alert, Oriented x3, Cooperative, No apparent distress, Well developed, Well nourished HEENT: Atraumatic, PERRLA, EOMI, Normocephalic Oral: Moist Mucosa Neck: Supple, No JVD, Negative Carotid Bruits, No Nuchal Rigidity, Trachea Midline, Thyroid Normal Size and Texture Lungs: Clear to auscultation, Normal air movement, No rhonchi, No wheeze, No rales Cardiovascular: Regular rate, Regular Rhythm, Normal S1, Normal S2, No murmurs, No Ectopic Activity, PMI Normal, No rub noted, No Gallop Abdomen: Bowel Sounds Present, Soft, Non Tender, Non-Distended, No hernias noted Extremities: No edema, Capillary Refill Less than 3 Seconds Skin: No rashes, No breakdown Neurological: Cranial nerves II-XII grossly intact, Neuro grossly intact, Sensory exam intact to light touch and pain, Coordination normal Psych/Mental Status: Normal Affect, Appropriate, Alert and oriented to time, place, person, mood and affect Vital Signs Temp Pulse Resp BP Pulse Ox 98.1 F 74 16 95/39 L 94 03/18/18 16:25 03/18/18 18:46 03/18/18 18:46 03/18/18 18:46 03/18/18 18:46 Oxygen Delivery Method Room Air Weight: 93 kg Body Mass Index (BMI) 34.1 Finger Stick Blood Glucose 168 Laboratory Tests Past 24 Hrs 03/18/18 03/18/18 16:40 16:40 WBC 7.6 RBC 4.10 L Hgb 11.2 L Hct 35.4 L MCV 86.3 MCH 27.3 MCHC 31.6 L RDW 15.8 H RDW Differential 50.5 H Plt Count 261 MPV 9.5 Immature Gran % (Auto) 0.300 Neut % (Auto) 54.1 Lymph % (Auto) 35.8 [place] % (Auto) 7.9 Eos % (Auto) 1.8 Baso % (Auto) 0.1 Absolute Neuts (auto) 4.1 Absolute Lymphs (auto) 2.71 Total Counted Not Reportable Sodium 137 Potassium 4.5 Chloride 102 Carbon Dioxide 31.0 Anion Gap 4 L BUN 16 Creatinine 1.08 H Estim Creat Clear Calc 52.34 Est GFR (MDRD) Af Amer 67 Est GFR (MDRD) Non-Af 56 L BUN/Creatinine Ratio 14.8 Glucose 88 Calcium 8.5 Troponin I < 0.015 Assessment/Plan All Active Problems (Last Updated 03/18/18 @ 19:30 by Rigo Auguste, DO) Fracture tibia/fibula (Resolved) Myocardial infarction (Resolved) Pneumonia (Resolved) UTI (urinary tract infection) (Resolved) Atrial fibrillation (Resolved) Hypotension (Acute) Lethargy (Resolved) Right hip pain (Resolved) Syncope and collapse (Resolved) LOVE (acute kidney injury) (Resolved) NSTEMI (non-ST elevated myocardial infarction) (Resolved) #1 hypotension- secondary to medication reaction (antihypertensives)-patient will be placed and observation status on PCU, she will be monitored on telemetry, I will give her IV fluids and hold her Lasix and lisinopril medications. Patient will be reevaluated in the morning. Patient will be kept on her beta-kusum #2 coronary artery-patient underwent cardiac catheterization on 11/18/16 and at that time underwent angioplasty and stenting of the right coronary artery as well as the left anterior descending artery. I will keep her on her beta-kusum for now #3 essential hypertension #4 hyperlipidemia #5 chronic low back pain #6 depression / anxiety Code Visit OBSV E&M: 42107 Initial observation care L3
--- NOTE | 2018-03-18 19:26 | HP.PCM_ITS ---
Problem List (1) Hypotension Status: Acute Qualifiers: Hypotension type: hypotension due to drug Qualified Code(s): I95.2 - Hypotension due to drugs History of Present Illness Date of Admission: 03/18/18 Chief Complaint: Hypotension The patient is a 57 year old F seen in the emergency room at [facility] after she was sent to the ER for evaluation from her physician's office due to dizziness and low blood pressure obtain in her physician's office. Patient denies any chest pain, shortness of breath, cough, fever, or chills. Evaluation in the emergency room here initially revealed her blood pressure to be 101/72, subsequently her blood pressure was noted to be 75/48 and then 85/54. Patient's EKG showed a sinus rhythm at 67, no acute ischemic changes were noted. Labs were obtained on the patient, CBC was remarkable for hemoglobin of 11.2, patient's chemistry showed an elevated creatinine at 1.08, patient's troponin was normal. Patient was given approximately 500 cc of normal saline but despite this, the patient's blood pressure remained in the 80s systolic. ER physician felt that the patient's hypotension was due to her blood pressure medications, patient will be placed and observation status on PCU for hypotension and her blood pressure medications will be held. She will be given IV fluids and reevaluated in the morning. Past Medical History Past Medical History (Chronic Problems): Chronic Problems (Last Reviewed 03/18/18 @ 15:27 by Soila Marsh) Generalized anxiety disorder with panic attacks (Chronic) Vision problems (Chronic) Osteoarthritis (Chronic) Lump of breast, left (Chronic) Atherosclerosis of [place] coronary artery of [place] heart without angina pectoris (Chronic) Tobacco abuse (Chronic) H/O laminectomy (Chronic) Hypertension (Chronic) Hyperlipidemia (Chronic) Low back pain (Chronic) Medical History: Medical History (Last Reviewed 03/18/18 @ 15:27 by Soila Marsh) Fracture tibia/fibula (Resolved) S82.209A, S82.409A Left 11/29/2014 Myocardial infarction (Resolved) I21.9 10/2016 Vision problems (Chronic) H54.7 Pneumonia (Resolved) J18.9 Osteoarthritis (Chronic) M19.90 Lump of breast, left (Chronic) N63.20 UTI (urinary tract infection) (Resolved) N39.0 Atrial fibrillation (Resolved) I48.91 Atherosclerosis of [place] coronary artery of [place] heart without angina pectoris (Chronic) I25.10 Tobacco abuse (Chronic) Z72.0 Syncope and collapse (Resolved) R55 LOVE (acute kidney injury) (Resolved) N17.9 Hypertension (Chronic) I10 Hyperlipidemia (Chronic) E78.5 Low back pain (Chronic) M54.5 Allergies adhesive Adverse Reaction (Verified 03/18/18 15:25) Other baclofen Adverse Reaction (Verified 03/18/18 15:25) LETHARGY Home Medications: Ambulatory Orders Medication Instructions Recorded DiphenhydrAMINE [Benadryl] 50 mg PO QHS 01/15/17 Aspirin E.C. [Ecotrin] 81 mg PO DAILY@0800 10/29/17 Metoprolol Tartrate [Lopressor 25 mg PO BID 10/29/17 (beta kusum)] Clopidogrel Bisulfate [Plavix] 75 mg PO DAILY 11/13/17 Rosuvastatin Calcium [Crestor] 40 mg PO DAILY 11/13/17 gabapentin 800 mg tablet 800 mg PO 4X/DAY tab 02/04/18 hydrocodone 7.5 mg-acetaminophen 1 tab PO Q8H tab 02/04/18 325 mg tablet trazodone 100 mg tablet 200 mg PO QHS #60 tab 02/04/18 lorazepam 0.5 mg tablet 0.5 mg PO QD-BID PRN #30 tab 02/23/18 Acetaminophen [Tylenol] 1,000 mg PO Q8 PRN 03/18/18 Buspirone HCl 10 mg PO DAILY 03/18/18 Buspirone HCl 20 mg PO BID 03/18/18 Furosemide 40 mg PO DAILY 03/18/18 Lisinopril [Zestril] 20 mg PO DAILY 03/18/18 Tizanidine HCl 4 mg PO TID 03/18/18 Surgical History: Surgical History (Last Reviewed 03/18/18 @ 15:27 by Soila Marsh) H/O laminectomy (Chronic) Z98.890 History of splenectomy Z90.81 2005 History of total right hip replacement Z96.641 11/24/17 History of left heart catheterization Z98.890 11/17/2016 PRABHAKAR mid RCA and prox LAD Hx of bone graft Onset Date: ~2014 Z98.890 S/P ORIF (open reduction internal fixation) fracture Z96.7, Z87.81 tib/fib Surgical History: herniorrhaphy, hysterectomy, - - laminectomy, left tib-fib fracture with open reduction secondary to trauma, coronary artery stents ?2, left breast biopsy Psychiatric History: No pertinent psych hx 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 history Lives: With Family Smoking Status: Current every day smoker Tobacco Use: Cigarettes Alcohol: None Drugs: None - *Family History Maternal Family History: Family History (Last Reviewed 03/18/18 @ 15:27 by Soila Marsh) Father Hypertension Bowel disease Heart disease Kidney disease Mother Hypertension Arthritis Bowel disease Colon cancer Heart disease High cholesterol Grandmother Arthritis Breast cancer Brain tumor Lung cancer Grandfather Myocardial infarction History Items: Diabetes Paternal Family History: Family History (Last Reviewed 03/18/18 @ 15:27 by Soila Marsh) Father Hypertension Bowel disease Heart disease Kidney disease Mother Hypertension Arthritis Bowel disease Colon cancer Heart disease High cholesterol Grandmother Arthritis Breast cancer Brain tumor Lung cancer Grandfather Myocardial infarction History Items: Hypertension Review of Systems Constitutional: Denies: Anorexia, Chills, Fever, Night Sweats, Malaise, Weakness, Weight Change, Fatigue Eyes: Denies: Cataracts, Conjunctivae Inflammation, Double vision, Drainage HEENT: Denies: Difficulty Swallowing, Dysphasia, Ear Pain, Eye Pain, Hard of Hearing, Hearing Changes, Nasal bleeding, Nasal Congestion, Post Nasal Drip Cardiovascular: Reports: Light Headedness. Denies: Chest Pain, Claudication, Chest Pressure, Chest Tightness, Edema, Heaviness, Palpitations Respiratory: Denies: Cough, Hemoptysis, Pleuritic Pain, Shortness of Breath, Shortness of breath at rest, Shortness of breath upon exertion Gastrointestinal: Denies: Abdominal Pain, Constipation, Diarrhea, Hematemesis, Hematochezia, Nausea, Melena, Vomiting Genitourinary: Denies: Dysuria, Frequency, Hematuria, Hesitancy, Incontinence, Urgency Gynecological: Denies: Breast symptoms Musculoskeletal: Denies: Foot Pain, Hand Pain, Joint Pain, Joint stiffness, Joint swelling, Joint Tenderness, Leg Pain Skin: Denies: Dryness, Pruritis, Rash Neurological: Denies: Blurred vision, Double vision, Change in Speech, Slurred speech, Difficulty swallowing, Focal weakness, Incoordination, Numbness, Tingling, Tremor Psychiatric: Denies: Anxiety, Depression, Homicidal Ideations, Suicidal Ideations Endocrine: Denies: Change in Body Habitus, Heat/ Cold Intolerance, Polydipsia, Polyuria Hematologic/ Lymphatic: Denies: Adenopathy, Anemia, Easy Bruising, Easy Bleeding, Petechiae, Purpura VTE Information - Inpt Only VTE Present on Admission: No VTE Mechan Device Prophylaxis: SCD's VTE Pharm Prophylaxis ordered?: No Reason prophylaxis not ordered:: Treatment Not Indicated - Physical Exam General: Alert, Oriented x3, Cooperative, No apparent distress, Well developed, Well nourished HEENT: Atraumatic, PERRLA, EOMI, Normocephalic Oral: Moist Mucosa Neck: Supple, No JVD, Negative Carotid Bruits, No Nuchal Rigidity, Trachea Midline, Thyroid Normal Size and Texture Lungs: Clear to auscultation, Normal air movement, No rhonchi, No wheeze, No rales Cardiovascular: Regular rate, Regular Rhythm, Normal S1, Normal S2, No murmurs, No Ectopic Activity, PMI Normal, No rub noted, No Gallop Abdomen: Bowel Sounds Present, Soft, Non Tender, Non-Distended, No hernias noted Extremities: No edema, Capillary Refill Less than 3 Seconds Skin: No rashes, No breakdown Neurological: Cranial nerves II-XII grossly intact, Neuro grossly intact, Sensory exam intact to light touch and pain, Coordination normal Psych/Mental Status: Normal Affect, Appropriate, Alert and oriented to time, place, person, mood and affect Vital Signs Temp Pulse Resp BP Pulse Ox 98.1 F 74 16 95/39 L 94 03/18/18 16:25 03/18/18 18:46 03/18/18 18:46 03/18/18 18:46 03/18/18 18:46 Oxygen Delivery Method Room Air Weight: 93 kg Body Mass Index (BMI) 34.1 Finger Stick Blood Glucose 168 Laboratory Tests Past 24 Hrs 03/18/18 03/18/18 16:40 16:40 WBC 7.6 RBC 4.10 L Hgb 11.2 L Hct 35.4 L MCV 86.3 MCH 27.3 MCHC 31.6 L RDW 15.8 H RDW Differential 50.5 H Plt Count 261 MPV 9.5 Immature Gran % (Auto) 0.300 Neut % (Auto) 54.1 Lymph % (Auto) 35.8 [place] % (Auto) 7.9 Eos % (Auto) 1.8 Baso % (Auto) 0.1 Absolute Neuts (auto) 4.1 Absolute Lymphs (auto) 2.71 Total Counted Not Reportable Sodium 137 Potassium 4.5 Chloride 102 Carbon Dioxide 31.0 Anion Gap 4 L BUN 16 Creatinine 1.08 H Estim Creat Clear Calc 52.34 Est GFR (MDRD) Af Amer 67 Est GFR (MDRD) Non-Af 56 L BUN/Creatinine Ratio 14.8 Glucose 88 Calcium 8.5 Troponin I < 0.015 Assessment/Plan All Active Problems (Last Updated 03/18/18 @ 19:30 by Rigo Auguste, DO) Fracture tibia/fibula (Resolved) Myocardial infarction (Resolved) Pneumonia (Resolved) UTI (urinary tract infection) (Resolved) Atrial fibrillation (Resolved) Hypotension (Acute) Lethargy (Resolved) Right hip pain (Resolved) Syncope and collapse (Resolved) LOVE (acute kidney injury) (Resolved) NSTEMI (non-ST elevated myocardial infarction) (Resolved) #1 hypotension- secondary to medication reaction (antihypertensives)-patient will be placed and observation status on PCU, she will be monitored on telemetry, I will give her IV fluids and hold her Lasix and lisinopril medications. Patient will be reevaluated in the morning. Patient will be kept on her beta-kusum #2 coronary artery-patient underwent cardiac catheterization on 11/18/16 and at that time underwent angioplasty and stenting of the right coronary artery as well as the left anterior descending artery. I will keep her on her beta- kusum for now #3 essential hypertension #4 hyperlipidemia #5 chronic low back pain #6 depression / anxiety Code Visit OBSV E&M: [id number] Initial observation care L3
[2018-03-18] MEDS: HYDROcodone Bitartrate/Apap 5/325 Tablet PO (21:56)
[2018-03-18] MEDS: 0.9% Normal Saline 1,000 ML 100 ML IV (21:58)
[2018-03-19] VITALS (10 sets, daily range): BP systolic 92–119; BP diastolic 66–73; PULSE 55–85; RESP 18; TEMP 36.1–36.6; O2SAT 93–96
[2018-03-19] MEDS: busPIRone 5 MG Tablet 20 MG PO ×2 (00:26→09:37)
[2018-03-19] MEDS: DiphenhydrAMINE 25 MG Capsule 50 MG PO (00:26)
[2018-03-19] MEDS: Metoprolol Tartrate 25 MG Tablet PO ×2 (00:27→09:36)
[2018-03-19] MEDS: traZODone 100 MG Tablet 200 MG PO (00:27)
[2018-03-19] MEDS: tiZANidine HCl 2 MG Tablet 4 MG PO ×3 (00:28→12:42)
[2018-03-19] MEDS: Gabapentin 800 MG Tablet PO ×3 (00:28→12:43)
[2018-03-19] MEDS: HYDROcodone Bitartrate/Apap 5/325 Tablet PO ×2 (05:12→12:47)
[2018-03-19] MEDS: 0.9% Normal Saline 1,000 ML 100 ML IV (07:14)
[2018-03-19 07:17] LABS: Anion Gap 6 (5-15); BUN 16 mg/dL (7-18); BUN/Creat Ratio 22.8 RATIO (10-20); Calcium,Total 8.2 mg/dL (8.5-10.1); Chloride 110 mmol/L (98-107); EST Glomerular Filtration Rate 91 mL/min (>60); Est Glom Filt Rate - Afr Amer 110 mL/min (>60); Estimated Creatinine Clearance 77.49 ml/min; Glucose 116 mg/dL (74-106); Potassium 4.8 mmol/L (3.5-5.1); Sodium Level 143 mmol/L (136-145)
[2018-03-19] MEDS: Aspirin E.C. 81 MG Tablet PO (09:36)
[2018-03-19] MEDS: Clopidogrel Bisulfate 75 MG Tablet PO (09:37)
--- NOTE | 2018-03-19 10:49 | CASEMGMT ---
Patient has a healthcare LW and healthcare POA on file. 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
--- NOTE | 2018-03-19 11:53 | DCINST_ITS ---
You will use the following diet at home:: Cardiac Your food should be the consistency of: Regular Discharge Activity: May not drive while taking narcotic pain medications. Instructions: ED Hypotension Orthostatic Allergies/Adverse Reactions: Allergies adhesive Adverse Reaction (Verified 03/18/18 15:25) Other baclofen Adverse Reaction (Verified 03/18/18 15:25) LETHARGY Medications to take at Discharge DiphenhydrAMINE [Benadryl] 50 mg PO QHS 01/15/17 Aspirin E.C. [Ecotrin] 81 mg PO DAILY@0800 10/29/17 Metoprolol Tartrate [Lopressor (beta kusum)] 25 mg PO BID 10/29/17 Clopidogrel Bisulfate [Plavix] 75 mg PO DAILY 11/13/17 Rosuvastatin Calcium [Crestor] 40 mg PO DAILY 11/13/17 gabapentin 800 mg tablet 800 mg PO 4X/DAY tab 02/04/18 hydrocodone 7.5 mg-acetaminophen 325 mg tablet 1 tab PO Q8H tab 02/04/18 trazodone 100 mg tablet 200 mg PO QHS #60 tab 02/04/18 lorazepam 0.5 mg tablet 0.5 mg PO QD-BID PRN #30 tab 02/23/18 Acetaminophen [Tylenol] 1,000 mg PO Q8 PRN 03/18/18 Buspirone HCl 10 mg PO DAILY@1200 03/18/18 Buspirone HCl 20 mg PO BID 03/18/18 Tizanidine HCl 4 mg PO TID 03/18/18 Lisinopril 2.5 mg PO DAILY #30 tablet 03/19/18 The following prescriptions were given: Lisinopril 2.5 mg PO DAILY #30 tablet Primary Care Physician: Ana Oates MD [Primary Care Provider] - 5-7 Days Test Results: Test results from this visit will be discussed in further detail at your follow- up appointment, if applicable. Proposed Discharge Date: 03/19/18
[2018-03-19] MEDS: LORazepam 2 MG/ML Syringe 0.5 MG IV (12:41)
[2018-03-19] MEDS: 0.9% NaCl Peripheral Flush Adult/Peds IV (12:41)
[2018-03-19] MEDS: busPIRone 5 MG Tablet 10 MG PO (12:42)
--- NOTE | 2018-04-04 12:31 | PCM.DC.SUM ---
Discharge Date and Diagnosis Date of Admission: 03/18/18 Date of Discharge: 03/19/18 - Primary Discharge Diagnosis Hypotension - Secondary Discharge Diagnosis Chronic Problems (Last Reviewed 03/26/18 @ 15:23 by Soila Marsh) Generalized anxiety disorder with panic attacks (Chronic) Vision problems (Chronic) Osteoarthritis (Chronic) Lump of breast, left (Chronic) Atherosclerosis of [place] coronary artery of [place] heart without angina pectoris (Chronic) Tobacco abuse (Chronic) H/O laminectomy (Chronic) Hypertension (Chronic) Hyperlipidemia (Chronic) Low back pain (Chronic) Hospital Course and Treatment Operations: None Summary of Care Provided: The patient is a 57 year old F admitted with low blood pressure. 1. Hypotension : Patient was placed on a monitored bed for continuous telemetry monitoring. Patient hypotension was attributed to her medications. Doses adjusted on discharge. Patient was discharged home a day after her admission in stable condition. 2. Coronary artery- with history of RCA angioplasty and stenting on 11/18/2016 3. Essential hypertension blood pressure medications adjusted as discussed above 4. Dyslipidemia-patient is on statin therapy, continued at home dose 5. Chronic back pain 6. Depression with anxiety - Physical Exam HEENT: Atraumatic Neck: No JVD Cardiovascular: Regular rate, Regular Rhythm Abdomen: Non-Distended Extremities: No cyanosis Psych/Mental Status: Normal Affect Vital Signs Temp Pulse Resp BP Pulse Ox 97.8 F 85 18 119/66 96 03/19/18 09:35 03/19/18 10:57 03/19/18 09:35 03/19/18 09:35 03/19/18 09:35 Oxygen Delivery Method Room Air Weight: 91.4 kg Body Mass Index (BMI) 33.5 Finger Stick Blood Glucose 168 Discharge Diet: No Restrictions Discharge Activity: May not drive while taking narcotic pain medications. Home Medications: Medications to take at Discharge DiphenhydrAMINE [Benadryl] 50 mg PO QHS 01/15/17 Aspirin E.C. [Ecotrin] 81 mg PO DAILY@0800 10/29/17 Metoprolol Tartrate [Lopressor (beta kusum)] 25 mg PO BID 10/29/17 Clopidogrel Bisulfate [Plavix] 75 mg PO DAILY 11/13/17 Rosuvastatin Calcium [Crestor] 40 mg PO DAILY 11/13/17 gabapentin 800 mg tablet 800 mg PO 4X/DAY tab 02/04/18 hydrocodone 7.5 mg-acetaminophen 325 mg tablet 1 tab PO Q8H tab 02/04/18 trazodone 100 mg tablet 200 mg PO QHS #60 tab 02/04/18 Acetaminophen [Tylenol] 1,000 mg PO Q8 PRN 03/18/18 Tizanidine HCl 4 mg PO TID 03/18/18 lorazepam 0.5 mg tablet 0.5 mg PO DAILY PRN #20 tab 03/24/18 buspirone 10 mg tablet 20 mg PO TID tab 03/26/18 lisinopril 2.5 mg tablet 5 mg PO DAILY tab 03/26/18 Primary Care Physician: Ana Oates MD [Primary Care Provider] - 5-7 Days Patient Instructions: ED Hypotension Orthostatic Disposition: Home Minutes spent on discharge:: 35 Patient Condition:: Good Medical Necessity - Tobacco Use Smoking Status: Current every day smoker Tobacco Use: Cigarettes Meaningful Use Info Meaningful Use Diagnoses (Choose all that apply): None applicable Code Visit OBSV E&M: 36506 Observation care discharge
--- NOTE | 2018-04-04 12:36 | DS.PCM_ITS ---
Discharge Date and Diagnosis Date of Admission: 03/18/18 Date of Discharge: 03/19/18 - Primary Discharge Diagnosis Hypotension - Secondary Discharge Diagnosis Chronic Problems (Last Reviewed 03/26/18 @ 15:23 by Soila Marsh) Generalized anxiety disorder with panic attacks (Chronic) Vision problems (Chronic) Osteoarthritis (Chronic) Lump of breast, left (Chronic) Atherosclerosis of [place] coronary artery of [place] heart without angina pectoris (Chronic) Tobacco abuse (Chronic) H/O laminectomy (Chronic) Hypertension (Chronic) Hyperlipidemia (Chronic) Low back pain (Chronic) Hospital Course and Treatment Operations: None Summary of Care Provided: The patient is a 57 year old F admitted with low blood pressure. 1. Hypotension : Patient was placed on a monitored bed for continuous telemetry monitoring. Patient hypotension was attributed to her medications. Doses adjusted on discharge. Patient was discharged home a day after her admission in stable condition. 2. Coronary artery- with history of RCA angioplasty and stenting on 11/18/2016 3. Essential hypertension blood pressure medications adjusted as discussed above 4. Dyslipidemia-patient is on statin therapy, continued at home dose 5. Chronic back pain 6. Depression with anxiety - Physical Exam HEENT: Atraumatic Neck: No JVD Cardiovascular: Regular rate, Regular Rhythm Abdomen: Non-Distended Extremities: No cyanosis Psych/Mental Status: Normal Affect Vital Signs Temp Pulse Resp BP Pulse Ox 97.8 F 85 18 119/66 96 03/19/18 09:35 03/19/18 10:57 03/19/18 09:35 03/19/18 09:35 03/19/18 09:35 Oxygen Delivery Method Room Air Weight: 91.4 kg Body Mass Index (BMI) 33.5 Finger Stick Blood Glucose 168 Discharge Diet: No Restrictions Discharge Activity: May not drive while taking narcotic pain medications. Home Medications: Medications to take at Discharge DiphenhydrAMINE [Benadryl] 50 mg PO QHS 01/15/17 Aspirin E.C. [Ecotrin] 81 mg PO DAILY@0800 10/29/17 Metoprolol Tartrate [Lopressor (beta kusum)] 25 mg PO BID 10/29/17 Clopidogrel Bisulfate [Plavix] 75 mg PO DAILY 11/13/17 Rosuvastatin Calcium [Crestor] 40 mg PO DAILY 11/13/17 gabapentin 800 mg tablet 800 mg PO 4X/DAY tab 02/04/18 hydrocodone 7.5 mg-acetaminophen 325 mg tablet 1 tab PO Q8H tab 02/04/18 trazodone 100 mg tablet 200 mg PO QHS #60 tab 02/04/18 Acetaminophen [Tylenol] 1,000 mg PO Q8 PRN 03/18/18 Tizanidine HCl 4 mg PO TID 03/18/18 lorazepam 0.5 mg tablet 0.5 mg PO DAILY PRN #20 tab 03/24/18 buspirone 10 mg tablet 20 mg PO TID tab 03/26/18 lisinopril 2.5 mg tablet 5 mg PO DAILY tab 03/26/18 Primary Care Physician: Ana Oates MD [Primary Care Provider] - 5-7 Days Patient Instructions: ED Hypotension Orthostatic Disposition: Home Minutes spent on discharge:: 35 Patient Condition:: Good Medical Necessity - Tobacco Use Smoking Status: Current every day smoker Tobacco Use: Cigarettes Meaningful Use Info Meaningful Use Diagnoses (Choose all that apply): None applicable Code Visit OBSV E&M: 26695 Observation care discharge
== END 2018-03-19 11:52 | disposition home or self-care (01) ==
LOC: ED 17:45 → PCU 19:36
PROVIDERS: Admitting Provider Internal Medicine; Emergency Provider Emergency Medicine; Family Provider Internal Medicine; PCP Internal Medicine; Referring Provider Internal Medicine; Visit Provider Internal Medicine
DX: I95.2 Hypotension due to drugs (principal); T46.5X5A Adverse effect of other antihypertensive drugs, initial encounter; Y92.9 Unspecified place or not applicable; I10 Essential (primary) hypertension; I25.10 Atherosclerotic heart disease of native coronary artery without angina pectoris; I25.2 Old myocardial infarction; F17.210 Nicotine dependence, cigarettes, uncomplicated; F41.1 Generalized anxiety disorder; M19.90 Unspecified osteoarthritis, unspecified site; E78.5 Hyperlipidemia, unspecified; G89.29 Other chronic pain; M54.5 Low back pain; Z79.899 Other long term (current) drug therapy; Z79.02 Long term (current) use of antithrombotics/antiplatelets; F32.9 Major depressive disorder, single episode, unspecified
CPT/HCPCS: 36415; 80048; 84484; 85025; 93005; 96361; 96374; 99218; 99284; 99406; J7030; A4216; G0378

== ENCOUNTER → 2018-04-12 12:54 | Outpatient (CLI) | payer MEDICAID, SELFPAY ==
[2018-03-26 15:24] VITALS: BMI 33.5
[2018-04-12 14:02] LABS: Amphetamine Urine VISTA NEGATIVE (<1000 ng/mL); Barbiturate Urine VISTA NEGATIVE (< 200 ng/mL); Benzodiazepine Urine VISTA NEGATIVE (< 200 ng/mL); Cocaine Urine VISTA NEGATIVE (< 300 ng/mL); Ecstacy Urine VISTA NEGATIVE (< 500 ng/mL); Methadone Urine VISTA NEGATIVE (< 300 ng/mL); PCP Urine VISTA NEGATIVE (< 25 ng/mL); THC Urine VISTA NEGATIVE (< 50 ng/mL); Vista UDS pH Range 5
== END ==
PROVIDERS: Family Provider Internal Medicine; PCP Internal Medicine; Referring Provider Anesthesiology Pain Medicine; Visit Provider Anesthesiology Pain Medicine
DX: F11.20 Opioid dependence, uncomplicated (principal)
CPT/HCPCS: 80307

== ENCOUNTER → 2018-05-05 10:36 | Outpatient (CLI) | payer MEDICAID, SELFPAY ==
[2018-03-26 15:24] VITALS: BMI 33.5
[2018-05-05 12:36] LABS: ALB/GLOB Ratio 0.9 RATIO (0.9-2.4); AST(SGOT) 8 U/L (15-37); Alanine Aminotransfer ALT/SGPT 14 U/L (13-56); Albumin, Serum 3.4 g/dL (3.2-5.0); Alkaline Phosphatase 130 U/L (45-117); Anion Gap 8 (5-15); BUN 16 mg/dL (7-18); BUN/Creat Ratio 20.9 RATIO (10-20); Chloride 111 mmol/L (98-107); Cholesterol 150 mg/dL (200); Creatinine, Serum 0.76 mg/dL (0.55-1.02); EST Glomerular Filtration Rate 83 mL/min (>60); Est Glom Filt Rate - Afr Amer 100 mL/min (>60); Globulin 3.9 g/dL (2.2-4.2); Glucose 105 mg/dL (74-106); High Density Lipoprotein 54 mg/dL; Potassium 4.4 mmol/L (3.5-5.1); Protein, Total 7.3 g/dL (6.4-8.2); Sodium Level 145 mmol/L (136-145); Triglycerides 81 mg/dL; Very Low Density Lipoprotein 16 mg/dL (5-40)
[2018-05-05 12:36] LABS: T4 Free Direct 0.87 ng/dL (0.76-1.46); Thyroid Stim Hormone (TSH) 1.45 uIU/mL (0.358-3.74)
== END ==
PROVIDERS: Nurse Practitioner Family; Family Provider Internal Medicine; PCP Internal Medicine; Referring Provider Internal Medicine; Visit Provider Internal Medicine
DX: I10 Essential (primary) hypertension (principal); R00.0 Tachycardia, unspecified; E78.5 Hyperlipidemia, unspecified
CPT/HCPCS: 36415; 80053; 80061; 84439; 84443

== ENCOUNTER → 2018-05-10 14:41 | Outpatient (CLI) | payer MEDICAID, SELFPAY ==
[2018-02-23 14:46] VITALS: BMI 31.7
[2018-05-06 14:42] VITALS: BMI 33.5
--- NOTE | 2018-05-10 14:44 | BI_ITS ---
MAMMOGRAPHY - BILATERAL SCREENING REASON FOR EXAM: Female, 58 years old. Routine annual screening examination. PERTINENT HISTORY: Non-contributory. TECHNIQUE: Digital bilateral breast akash (3D mammographic acquisition) in the CC and MLO projections. 2-D mediolateral oblique (MLO) and craniocaudad (CC) views of both breasts were obtained. CAD: Full Field Digital Mammography with Computer Added Detection was performed. COMPARISON: No comparison mammograms available at this time. If any prior films become available, an addendum to this report can be generated. FINDINGS: Breast Composition: The breasts are heterogeneously dense, which may obscure small masses. There are no dominant masses or suspicious calcifications. Small bilateral benign appearing axillary lymph nodes. No other significant abnormalities are identified. BI/SCREENING MAMM (CAD), BILAT IMPRESSION: Negative screening mammogram. Yearly followup mammogram recommended. (A) ASSESSMENT CATEGORY: BIRADS Category 2: Benign. A letter regarding these results will be sent to the patient by the facility within 30 days. Approximately 10% of breast cancers are not detected by mammography. A normal mammogram should not delay biopsy of a clinically suspicious abnormality. [id number] Electronically Signed: Bon Valentin MD at 15:56 EST , Service support ,
== END ==
PROVIDERS: Family Provider Internal Medicine; PCP Internal Medicine; Visit Provider Nurse Practitioner Family
DX: Z12.31 Encounter for screening mammogram for malignant neoplasm of breast (principal)
CPT/HCPCS: 77063; 77067

== ENCOUNTER → 2018-06-22 14:00 | Outpatient (CLI) | payer MEDICAID, SELFPAY ==
[2018-06-22 13:50] VITALS: BMI 33.5
--- NOTE | 2018-06-22 14:02 | RAD_ITS ---
STUDY: X-RAY - LUMBAR SPINE REASON FOR EXAM: Female, 58 years old. Back pain. TECHNIQUE: 4 view(s) of the lumbar spine were obtained. COMPARISON: None FINDINGS: Normal lumbar lordosis. There is no substantial scoliosis. There is a normal alignment of the vertebrae. There is no alteration of alignment with flexion or extension. There is multilevel endplate spondylosis of the lumbar vertebrae. There is multi-level degenerative disc disease with multi-level disc space narrowing. There is no evidence of acute fracture or loss of vertebral axial height. There is atherosclerotic calcification of the abdominal aorta without a demonstrated aneurysm. RAD/L/S Spine Min 4 Views IMPRESSION: Degenerative changes of the spine, as detailed above. Electronically Signed: Robin Carlson DO at 14:29 EDT Tel [phone], Service support ,
== END ==
PROVIDERS: Family Provider Internal Medicine; PCP Internal Medicine; Referring Provider Orthopaedic Surgery; Visit Provider Orthopaedic Surgery
DX: M54.5 Low back pain (principal); M79.604 Pain in right leg
CPT/HCPCS: 72110

== ENCOUNTER 2018-06-25 08:17 | Day surgery (SDC) | payer MEDICAID, SELFPAY ==
[2018-05-06 14:42] VITALS: BMI 33.5
[2018-06-22 13:50] VITALS: BMI 33.5
[2018-06-25] VITALS (7 sets, daily range): BP systolic 92–120; BP diastolic 70–84; PULSE 73–88; RESP 16; TEMP 36.2–37.1; O2SAT 93–98; BMI 31.7
--- NOTE | 2018-06-25 | COLBX_PTH ---
PATIENT: JOHANA YBARRA LOC: EN U#:[id number] AGE/SX: 58/F ROOM: RE06/25/[address]: Dr. Maksim Lanier MD : 1960 BED: DIS: 06/25/2018 SPEC #: [id number] RECD: 06/25/18 14:24 STATUS: GENO IKER #: [id number] TYREL: 06/25/18 00:[address]: Maksim Lanier DEPT: SURGICAL PATHOLOGY RECD BY: Serg Wooten ENTERED: 06/25/18 14:25 SP TYPE: COLON BX OTHR DR: Dr. Fredy Rodriguez MD Tissues: A - Transverse colon B - Descending colon C - Sigmoid colon biopsy Procedures: Surgery Specimen Level IV HEADER OPERATION: Colonoscopy (MAC) PRE-OP DIAGNOSIS: Screening TISSUE SUBMITTED: A - Transverse colon polyp, B - Descending polyp, C - Rectosigmoid polyp MICROSCOPIC DIAGNOSIS A. Transverse colon polyp, biopsy: Fragments of tubular adenoma. B. Descending colon polyp, biopsy: Serrated adenoma (mixed tubular adenoma and hyperplastic polyp). C. Rectosigmoid polyp, biopsy: Fragments of tubular adenoma. ARY:carmelita 06/28/18 MICROSCOPIC DESCRIPTION Slides are reviewed. GROSS DESCRIPTION A - Received in fixative is one container labeled with the patient's name and designated transverse colon polyp. The specimen consists of multiple irregular fragments of light carrizales soft tissue that in aggregate measure 0.6 x 0.2 x 0.1 cm. The specimen is totally submitted in one cassette. B - Received in fixative is one container labeled with the patient's name and designated descending polyp. The specimen consists of one irregular fragment of light carrizales soft tissue that measures 0.3 x 0.2 x 0.1 cm. The specimen is totally submitted in one cassette. C - Received in fixative is one container labeled with the patient's name and designated rectosigmoid polyp. The specimen consists of a piece of carrizales-pink polyp measuring 0.5 x 0.5 x 0.3 cm. A piece of carrizales-pink soft tissue is also noted measuring 0.2 x 0.2 x 0.1 cm. The specimen is totally submitted in one cassette. / ARY:carmelita 06/25/18 TC:1 CPT: 84014 x3
--- NOTE | 2018-06-25 09:17 | HP.PCM_ITS ---
History of Present Illness Date of Admission: 06/25/18 The patient is a 58 year old F here for screening colonoscopy. The patient has never had a colonoscopy before. She has no abdominal pain or blood in her stool. She does report that her mother a few years ago had a polyp removed that did have some cancer inside of it. She denies any anticoagulation. She had a knee replacement recently and requests prophylactic antibiotics. Past Medical/Surgical History - Planned Operation Planned Operative Procedure/s: COLONOSCOPY Date of Operative Procedure: 06/25/18 Permit Signed: Yes S.O.S: No - Previous Hospitalizations/Surgeries HX Hospitalizations: No HX of Surgeries: HUNG LUMBAR LAMINECTOMY. L BREAST BX. RUPTURED SPLEEN-2001. HYSTER. HERNIA REPAIR. ANKLE FX. R THR 11/24/17 Any Problems With Anesthesia: No You/Your Family Experience Fever (Hyperthermia) With Anes: No Cholinesterase deficiency: No - Cardiovascular Hx Chest Pain within Last 2 months: No Hx of Irregular Heartbeat and/or Afib: Yes - dr. myers q6m. hx of afib Hx Heart Attack: Yes Hx Congestive Heart Failure: No Hx Rheumatic Fever: No Hx Hypertension: Yes - ON MED Hx Internal Defibrillator: No Hx Pacemaker: No Hx Cardiac Catheterization: Yes - 10/2016 [facility] What facility was last heart cath performed: [facility] Date of last Heart Cath: 10/2016 Hx Cardiac Surgery/Stents/Etc.: Yes - x2 stents Hx Stress Test: No HX Edema: Yes - HUNG LEGS Hx Pain in Legs when Walking/Leg Cramps: No - Respiratory Chronic Cough: No HX of Shortness of Breath: No Hoarseness: No Hx Chronic Obstructive Pulmonary Disease (COPD): No Hx Asthma: No Hx Emphysema: No Hx Sleep Apnea: Yes CPAP: No BIPAP: No Hx Oxygen Use at Home: No Hx Respiratory Tract Infection/Cold (presently): No Result (for STOP score): Positive Hx Smoking: Yes - 1/2 PPD Smoking Status: Current every day smoker - Gastrointestinal Hx Gastroesophageal Reflux: Yes - occ. no medication Controlled With Meds: No Hx Gastrointestinal Disorders: No Hx Gastrointestinal Bleed: No Hx Ulcer: No Hx Hiatal Hernia: No Difficulty Chewing/Swallowing: No Recent Onset of Swallowing Problems: No Special diet followed at home: No Hx Unplanned Weight Loss of 20#: No HX Unplanned Weight Gain of 20#: No - Neurological Hx Seizures: No HX Syncope/Blackout Spells/Unconsciousness: No Hx CVA/Stroke: No Hx Transient Ischemic Attacks (TIA): No Hx Multiple Sclerosis: No Hx Parkinson's Disease: No Hx Head/Neck Injury: No Hx Headaches: No Hx Back Injury/Pain: Yes - back pain Recent Onset of Speech Difficulty: No Restless Legs: Yes - sometimes at night Does patient have nerve stimulator: No - Blood Disorder Hx Leukemia: No Bleeding Tendencies: Yes - on plavix, bleeds easily Hx Deep Vein Thrombosis: Yes - hx of PE Hx High Cholesterol: Yes Blood Transmitted Disease: No Hx Hepatitis: No Hx Cirrhosis: No Hx Anemia: No Hx Blood Disorders: No - Reproduction : No Is Patient Lactating: No Hx Hysterectomy: Yes Hx Tubal Ligation: No Are You Post Menopause: No - Genitourinary Hx Renal Disease: No Hx Dialysis: No - Musculoskeletal Hx Arthritis: Yes - BACK Hx Rheumatoid Arthritis: No Hx Gout: No Recent Onset of an Orthopedic Problem: No - Endocrine Hx Diabetes: No Thyroid Disease: No Hx Steroid Therapy: Yes - SEVERAL INJ - Psycho/Social Hx Substance Use: No Hx Alcohol Use: Yes - social Hx Anxiety: Yes Hx Depression: No Mental Illness: No Hx Dementia: No - Miscellaneous Hx Cancer: No Recent Exposure to Contagious Disease: No Active MRSA: No Hx of C-Diff: No Any Loose Teeth: No - last tooth on bottom has a temp cap on Additional information pertinent to anesthesia:: SMOKES 1/2 PPD FOR 30+ YRS Allergies adhesive Adverse Reaction (Verified 06/21/18 16:13) Other baclofen Adverse Reaction (Verified 06/21/18 16:13) LETHARGY Maternal Family History: Family History (Last Reviewed 05/06/18 @ 14:40 by Nano Nino) Father Hypertension Bowel disease Heart disease Kidney disease Mother Hypertension Arthritis Bowel disease Colon cancer Heart disease High cholesterol Grandmother Arthritis Breast cancer Brain tumor Lung cancer Grandfather Myocardial infarction Diabetes Paternal Family History: Family History (Last Reviewed 05/06/18 @ 14:40 by Nano Nino) Father Hypertension Bowel disease Heart disease Kidney disease Mother Hypertension Arthritis Bowel disease Colon cancer Heart disease High cholesterol Grandmother Arthritis Breast cancer Brain tumor Lung cancer Grandfather Myocardial infarction Hypertension - Discharge Is Pt Admitted From a Shelter, or a Fci: No Who Could Help: AUNT After D/C, Where Do you Plan to Go: Return Home - Physical Exam General: Alert, Oriented x3 Lungs: Normal air movement Cardiovascular: Regular rate, Regular Rhythm Abdomen: Soft, Non Tender, Non-Distended Vital Signs Temp Pulse Resp BP Pulse Ox 98.2 F 88 16 92/70 97 06/25/18 08:38 06/25/18 08:38 06/25/18 08:38 06/25/18 08:38 06/25/18 08:38 Oxygen Delivery Method Room Air Weight: 190 lb 14.725 oz Body Mass Index (BMI) 31.7 Finger Stick Blood Glucose 168 Assessment/Plan All Active Problems (Last Reviewed 05/06/18 @ 14:40 by Nano Nino) Fracture tibia/fibula (Resolved) Myocardial infarction (Resolved) Pneumonia (Resolved) UTI (urinary tract infection) (Resolved) Atrial fibrillation (Resolved) Hypotension (Acute) Lethargy (Resolved) Right hip pain (Resolved) Syncope and collapse (Resolved) LOVE (acute kidney injury) (Resolved) NSTEMI (non-ST elevated myocardial infarction) (Resolved) 58-year-old female for screening colonoscopy I explained endoscopy in detail to the patient. I explained the risks including but not limited to stroke or heart attack with anesthesia, perforation of the GI tract, bleeding, infection. I explained that any of these could necessitate further emergency surgery. The patient understands and all questions were answered sufficiently. The patient wishes to proceed with procedure. Maksim Lanier MD Pager: [facility] [address] [place] [address] [place] [address] Office: Surgery Risks - Colonoscopy Risks Include but are not Limited To: Risks include but are not limited to: Bleeding, perforation requiring further surgery, inability to complete colonoscopy requiring barium enema.
--- NOTE | 2018-06-25 09:56 | OP.ENDO_ITS ---
06/25/2018 Fredy Rodriguez Re : Colonoscopy procedure for Tiana Steele Dear Jennifer This procedure was performed on Monday, June 25, 2018. My impressions and recommendations are as follows: Impressions : - Three small polyps at the recto-sigmoid colon and in the descending colon, removed with a hot snare. Resected and retrieved. - The examination was otherwise normal on direct and retroflexion views. Recommendations : - Discharge patient to home. - Resume previous diet. - Continue present medications. - Resume Plavix (clopidogrel) at prior dose tomorrow. - Repeat colonoscopy date to be determined after pending pathology results are reviewed for surveillance based on pathology results. - Physician's office will call you with pathology results and recommendations for when to repeat colonoscopy. My findings are described in the full procedure note, which is enclosed. If I can be of further assistance, please feel free to contact me at Doctor phone number(s): , Work: . Sincerely, Maksim Lanier MD 06/25/2018 9:56:40 AM This report has been signed electronically.
== END 2018-06-25 10:59 | disposition home or self-care (01) ==
LOC: EN 08:17 → AC 08:18
PROVIDERS: Family Provider Internal Medicine; PCP Internal Medicine; Referring Provider Surgery; Visit Provider Surgery
PROC: 0DJD8ZZ Inspection of Lower Intestinal Tract, Via Natural or Artificial Opening Endoscopic (ICD-10-PCS; CPT 45378; principal; 2018-06-25 09:25)
DX: Z12.11 Encounter for screening for malignant neoplasm of colon (principal); D12.7 Benign neoplasm of rectosigmoid junction; D12.4 Benign neoplasm of descending colon; D12.3 Benign neoplasm of transverse colon; K63.5 Polyp of colon; E78.00 Pure hypercholesterolemia, unspecified; F41.9 Anxiety disorder, unspecified; I25.2 Old myocardial infarction; I10 Essential (primary) hypertension; I48.91 Unspecified atrial fibrillation; F17.200 Nicotine dependence, unspecified, uncomplicated; G47.30 Sleep apnea, unspecified; Z95.5 Presence of coronary angioplasty implant and graft; Z86.711 Personal history of pulmonary embolism; Z79.02 Long term (current) use of antithrombotics/antiplatelets; Z79.899 Other long term (current) drug therapy
CPT/HCPCS: 45380; 88305; J7120

== ENCOUNTER → 2018-10-06 | Outpatient (CLI) | payer MEDICAID, SELFPAY ==
[2018-09-27 13:08] VITALS: BMI 31.7
--- NOTE | 2018-10-06 13:55 | RAD_ITS ---
STUDY: X-RAY - THORACIC SPINE REASON FOR EXAM: Female, 58 years old. Back pain. TECHNIQUE: 2 view(s) of the thoracic spine were obtained. COMPARISON: November 15, 2016 FINDINGS: Normal kyphosis of the thoracic spine. There is no substantial scoliosis. There is demineralization of the thoracic spine with endplate spondylosis. There is multilevel disc space narrowing of the thoracic spine. There is no evidence of acute fracture or loss of vertebral axial height. The soft tissue structures are unremarkable. RAD/Thoracic Spine 2 Views IMPRESSION: Stable degenerative changes of the thoracic spine. Electronically Signed: Robin Carlson DO at 19:35 EDT Tel [phone], Service support ,
== END | disposition home or self-care (01) ==
LOC: RAD 13:41
PROVIDERS: Family Provider Internal Medicine; PCP Internal Medicine; Referring Provider Anesthesiology Pain Medicine; Visit Provider Anesthesiology Pain Medicine
DX: M54.6 Pain in thoracic spine (principal)
CPT/HCPCS: 72070

== ENCOUNTER → 2018-11-19 | Outpatient (CLI) | payer MEDICARE, MEDICAID, SELFPAY ==
[2018-10-14 12:38] VITALS: BMI 32.9
[2018-10-29 13:10] VITALS: BMI 32.9
--- NOTE | 2018-11-19 09:18 | STRESSREP ---
Stress Test Report Exercise myocardial perfusion stress test. 58-year-old lady with a history of chest pain. Patient status post previous non-ST elevation myocardial infarction. Medications: Ecotrin, clopidogrel, furosemide, metoprolol. Stress protocol: Resting EKG demonstrates normal sinus rhythm with a rate of 72 bpm normal intervals are noted resting blood pressures 142/98 mmHg. The patient exercised according to regular Santana protocol for total duration of 4 minutes. The maximum heart rate attained was 155 bpm which was 95% of maximum predicted heart rate the maximum workload was 5.8 metabolic equivalents. Patient maintained sinus rhythm throughout the recording. At rest there were no ST or T wave changes noted suggest ischemia peak exercise upsloping ST changes only were noted. The resting blood pressures 142/98 with a peak blood pressure of 200 100 mmHg. Test was terminated due to shortness of breath and back discomfort. Myocardial perfusion protocol. 14.3 mCi of technetium 99m sestamibi was injected at rest. The patient exercised according to regular Santana protocol for 4 minutes and at peak exercise 44.4 mCi of technetium 99m sestamibi was injected stress images were obtained stress and rest images were reconstructed and compared in the short axis vertical long horizontal long axis. Gated images were also obtained Perfusion SPECT analysis: Review of the stress images demonstrate normal uptake of tracer noted in all areas of myocardium. The resting images similar demonstrate normal uptake of tracer noted in all areas of the myocardium. No areas of reversibility are noted suggest ischemia. Gated SPECT analysis: The gated ejection fraction is noted to be 86%. Conclusion: Normal exercise myocardial perfusion stress test after moderate workload. Hypertensive response to exercise. Preserved ejection fraction.
== END | disposition home or self-care (01) ==
LOC: CVS 06:36
PROVIDERS: Family Provider Internal Medicine; PCP Internal Medicine; Referring Provider Nurse Practitioner Family; Visit Provider Nurse Practitioner Family
DX: I25.10 Atherosclerotic heart disease of native coronary artery without angina pectoris (principal); E78.5 Hyperlipidemia, unspecified; F17.200 Nicotine dependence, unspecified, uncomplicated; I10 Essential (primary) hypertension; I48.0 Paroxysmal atrial fibrillation; R06.09 Other forms of dyspnea; R07.9 Chest pain, unspecified; Z95.5 Presence of coronary angioplasty implant and graft
CPT/HCPCS: 78452; 93017; A9500; A4216

== ENCOUNTER → 2018-12-13 | Outpatient (CLI) | payer MEDICARE, MEDICAID, SELFPAY ==
[2018-10-29 13:10] VITALS: BMI 32.9
[2018-12-13 13:59] LABS: Amphetamine Urine VISTA NEGATIVE (<1000 ng/mL); Barbiturate Urine VISTA NEGATIVE (< 200 ng/mL); Benzodiazepine Urine VISTA NEGATIVE (< 200 ng/mL); Cocaine Urine VISTA NEGATIVE (< 300 ng/mL); Ecstacy Urine VISTA POSITIVE (< 500 ng/mL); Methadone Urine VISTA NEGATIVE (< 300 ng/mL); PCP Urine VISTA NEGATIVE (< 25 ng/mL); THC Urine VISTA NEGATIVE (< 50 ng/mL); Vista UDS pH Range 5
== END | disposition home or self-care (01) ==
PROVIDERS: Family Provider Internal Medicine; PCP Internal Medicine; Referring Provider Anesthesiology Pain Medicine; Visit Provider Anesthesiology Pain Medicine
DX: F11.20 Opioid dependence, uncomplicated (principal)
CPT/HCPCS: 80307

== ENCOUNTER → 2019-02-07 | Outpatient (CLI) | payer MEDICARE, SELFPAY ==
[2018-10-29 13:10] VITALS: BMI 32.9
--- NOTE | 2019-02-07 13:25 | RAD_ITS ---
STUDY: X-RAY - SACRUM/COCCYX REASON FOR EXAM: Female, 58 years old. Fall. TECHNIQUE: 4 view(s) of the sacrum and coccyx were obtained. COMPARISON: None. FINDINGS: No acute displaced fracture, dislocation or osseous destruction. Osteopenia/osteoporosis. Right hip arthroplasty intact. Mild left hip osteonecrosis. Mild pubic symphysis arthrosis. Mild sacroiliac joint arthrosis. Severe lower lumbar spine arthrosis. No significant soft tissue swelling. Vascular calcifications. RAD/Sacrum-Coccyx min 2 Views IMPRESSION: Sacrum/coccyx intact without displaced fracture Osteopenia/osteoporosis with degenerative changes, as above Uncomplicated partially visualized right hip arthroplasty Electronically Signed: Viraj Hayes DO at 9:35 EST Tel , Service support ,
== END | disposition home or self-care (01) ==
LOC: RAD 13:11
PROVIDERS: Family Provider Internal Medicine; PCP Internal Medicine; Referring Provider Anesthesiology Pain Medicine; Visit Provider Anesthesiology Pain Medicine
DX: M85.88 Other specified disorders of bone density and structure, other site (principal); W19.XXXA Unspecified fall, initial encounter
CPT/HCPCS: 72220

== ENCOUNTER → 2019-03-17 10:38 | Outpatient (CLI) | payer MEDICARE, SELFPAY ==
[2019-02-15 15:23] VITALS: BMI 32.9
[2019-03-17 10:41] LABS: Mucous, Urine 0 SEEN /hpf (<or=2+); Red Blood Cells-Urine 0 SEEN /hpf (0-5); White Blood Cells 0 SEEN /hpf (0-5)
[2019-03-17 12:15] LABS: Absolute Lymphocyte Count 1.63 X10^3/uL (0.83-4.51); Absolute Neutrophil Count 5.4 X10^3/uL (2.0-7.7); Basophil# 0.02 X10^3/uL; Basophil% 0.3 % (0-1); Eosinophil# 0.04 X10^3/uL; Eosinophils% 0.5 % (0-5); Hemoglobin 14.7 g/dL (12.0-15.0); Lymphocyte # 1.63 X10^3/ul (4.0); Lymphocyte % 21.4 % (19-41); Mean Corpuscular Hgb 28.8 pg (27.0-32.0); Mean Corpuscular Volume 90.2 fL (81-99); Mean Platelet Vol. 10.5 fl (6.2-12.0); Monocyte# 0.46 X10^3/uL; NRBC Flagged by Analyzer 0 % (0-5); Neutrophil # 5.44 X10^3/uL (2.7-7.7); Neutrophil % 71.4 % (47-70); Platelet Count 262 K/mm3 (150-450); RBC Distribution Width CV 14.5 % (11.6-14.6); RBC Distribution Width SD 48.4 fl (35.1-43.9); White Blood Count 7.6 K/mm3 (4.4-11.0)
[2019-03-17 12:19] LABS: Color, Urine Yellow (Yellow); Glucose, Dipstick Normal (Normal); Ketone-Dipstick Negative (Negative); Leukocyte Esterase-Dipstick Negative /ul (Negative); Nitrite-Dipstick Negative (Negative); Occult Blood-Urine Negative /ul (Negative); Protein-Dipstick Negative (Negative); Urine Bilirubin Dipstick Negative (Negative); Urine Clarity Sl. Cloudy (Clear); Urine Urobilinogen 1 mg/dl (Normal); Urine pH 6.5 (5.0 - 8.0)
[2019-03-17 12:29] LABS: ALB/GLOB Ratio 0.9 RATIO (0.9-2.4); AST(SGOT) 14 U/L (15-37); Alanine Aminotransfer ALT/SGPT 19 U/L (13-56); Albumin, Serum 3.7 g/dL (3.2-5.0); Alkaline Phosphatase 116 U/L (45-117); Anion Gap 4 (5-15); BUN 10 mg/dL (7-18); BUN/Creat Ratio 10.9 RATIO (10-20); Calcium,Total 9.3 mg/dL (8.5-10.1); Chloride 105 mmol/L (98-107); Cholesterol 144 mg/dL (200); Creatinine, Serum 0.92 mg/dL (0.55-1.02); EST Glomerular Filtration Rate 67 mL/min (>60); Est Glom Filt Rate - Afr Amer 81 mL/min (>60); Glucose 107 mg/dL (74-106); High Density Lipoprotein 50 mg/dL; Potassium 4.3 mmol/L (3.5-5.1); Protein, Total 7.7 g/dL (6.4-8.2); Sodium Level 139 mmol/L (136-145); Triglycerides 138 mg/dL; Very Low Density Lipoprotein 28 mg/dL (5-40)
[2019-03-17 12:31] LABS: Squamous Epithelial Cells - UA 0-5 SEEN /hpf (5-10)
[2019-03-17 12:32] LABS: Bacteria 1+ /hpf (None Seen)
== END ==
PROVIDERS: Family Provider Internal Medicine; PCP Internal Medicine; Visit Provider Internal Medicine
DX: I10 Essential (primary) hypertension (principal); I48.0 Paroxysmal atrial fibrillation; E78.5 Hyperlipidemia, unspecified
CPT/HCPCS: 36415; 80053; 80061; 81001; 85025

== ENCOUNTER → 2019-06-13 | Outpatient (CLI) | payer MEDICARE, SELFPAY ==
[2019-05-18 13:32] VITALS: BMI 32.9
[2019-06-13 13:21] LABS: Anion Gap 4 (5-15); BUN 24 mg/dL (7-18); BUN/Creat Ratio 27.7 RATIO (10-20); Calcium,Total 9.3 mg/dL (8.5-10.1); Chloride 105 mmol/L (98-107); Creatinine, Serum 0.87 mg/dL (0.55-1.02); EST Glomerular Filtration Rate 71 mL/min (>60); Est Glom Filt Rate - Afr Amer 86 mL/min (>60); Glucose 101 mg/dL (74-106); Potassium 4.7 mmol/L (3.5-5.1); Sodium Level 142 mmol/L (136-145)
== END | disposition home or self-care (01) ==
LOC: BIMLAB 11:18
PROVIDERS: PCP Internal Medicine; Referring Provider Internal Medicine; Visit Provider Internal Medicine
DX: I10 Essential (primary) hypertension (principal)
CPT/HCPCS: 36415; 80048

== ENCOUNTER → 2019-09-19 12:34 | Outpatient (CLI) | payer MEDICARE, SELFPAY ==
[2019-06-15 17:05] VITALS: BMI 32.9
[2019-09-19 16:55] LABS: Amphetamine Urine VISTA NEGATIVE (<1000 ng/mL); Barbiturate Urine VISTA NEGATIVE (< 200 ng/mL); Benzodiazepine Urine VISTA NEGATIVE (< 200 ng/mL); Cocaine Urine VISTA NEGATIVE (< 300 ng/mL); Ecstacy Urine VISTA POSITIVE (< 500 ng/mL); Methadone Urine VISTA NEGATIVE (< 300 ng/mL); PCP Urine VISTA NEGATIVE (< 25 ng/mL); THC Urine VISTA NEGATIVE (< 50 ng/mL); Vista UDS pH Range 5
== END ==
PROVIDERS: PCP Internal Medicine; Referring Provider Anesthesiology Pain Medicine; Visit Provider Anesthesiology Pain Medicine
DX: F11.20 Opioid dependence, uncomplicated (principal)
CPT/HCPCS: 80307

== ENCOUNTER → 2019-10-17 | Outpatient (CLI) | payer MEDICARE, SELFPAY ==
[2019-06-15 17:05] VITALS: BMI 32.9
== END | disposition home or self-care (01) ==
PROVIDERS: PCP Internal Medicine; Referring Provider Anesthesiology Pain Medicine; Visit Provider Anesthesiology Pain Medicine
DX: F11.20 Opioid dependence, uncomplicated (principal)
CPT/HCPCS: 80307

== ENCOUNTER → 2019-10-18 | Outpatient (CLI) | payer MEDICARE, SELFPAY ==
[2019-10-18 12:59] VITALS: BMI 32.4
[2019-10-18 17:30] LABS: Amphetamine Urine VISTA NEGATIVE (<1000 ng/mL); Barbiturate Urine VISTA NEGATIVE (< 200 ng/mL); Benzodiazepine Urine VISTA NEGATIVE (< 200 ng/mL); Cocaine Urine VISTA NEGATIVE (< 300 ng/mL); Ecstacy Urine VISTA POSITIVE (< 500 ng/mL); Methadone Urine VISTA NEGATIVE (< 300 ng/mL); PCP Urine VISTA NEGATIVE (< 25 ng/mL); THC Urine VISTA POSITIVE (< 50 ng/mL); Vista UDS pH Range 7
[2019-10-18 18:06] LABS: Anion Gap 9 (5-15); BUN 12 mg/dL (7-18); BUN/Creat Ratio 13.8 RATIO (10-20); Calcium,Total 8.9 mg/dL (8.5-10.1); Chloride 78 mmol/L (98-107); Creatinine, Serum 0.87 mg/dL (0.55-1.02); EST Glomerular Filtration Rate 71 mL/min (>60); Est Glom Filt Rate - Afr Amer 86 mL/min (>60); Glucose 104 mg/dL (74-106); Potassium 3.9 mmol/L (3.5-5.1); Sodium Level 116 mmol/L (136-145)
== END | disposition home or self-care (01) ==
LOC: LAB 16:07
PROVIDERS: PCP Internal Medicine; Referring Provider Anesthesiology Pain Medicine; Visit Provider Internal Medicine Cardiovascular Disease
DX: I25.10 Atherosclerotic heart disease of native coronary artery without angina pectoris (principal); F11.20 Opioid dependence, uncomplicated
CPT/HCPCS: 36415; 80048; 80307

== ENCOUNTER → 2019-10-24 | Outpatient (CLI) | payer MEDICARE, SELFPAY ==
[2019-10-18 12:59] VITALS: BMI 32.4
[2019-10-24 10:28] LABS: Anion Gap 5 (5-15); BUN 46 mg/dL (7-18); BUN/Creat Ratio 26.9 RATIO (10-20); Calcium,Total 8.8 mg/dL (8.5-10.1); Chloride 86 mmol/L (98-107); Creatinine, Serum 1.71 mg/dL (0.55-1.02); EST Glomerular Filtration Rate 33 mL/min (>60); Est Glom Filt Rate - Afr Amer 39 mL/min (>60); Glucose 97 mg/dL (74-106); Potassium 3.7 mmol/L (3.5-5.1); Sodium Level 127 mmol/L (136-145)
== END | disposition home or self-care (01) ==
LOC: LAB 09:03
PROVIDERS: PCP Internal Medicine; Referring Provider Internal Medicine Cardiovascular Disease; Visit Provider Internal Medicine Cardiovascular Disease
DX: I25.10 Atherosclerotic heart disease of native coronary artery without angina pectoris (principal); I21.4 Non-ST elevation (NSTEMI) myocardial infarction; I48.0 Paroxysmal atrial fibrillation; I10 Essential (primary) hypertension; E78.5 Hyperlipidemia, unspecified; F17.200 Nicotine dependence, unspecified, uncomplicated; F41.0 Panic disorder [episodic paroxysmal anxiety]; F41.1 Generalized anxiety disorder; Z95.5 Presence of coronary angioplasty implant and graft
CPT/HCPCS: 36415; 80048

== ENCOUNTER → 2019-10-26 | Outpatient (CLI) | payer MEDICARE, SELFPAY ==
[2019-10-26 10:55] VITALS: BMI 32.4
--- NOTE | 2019-10-26 12:10 | RAD_ITS ---
STUDY: X-RAY - RIGHT RADIUS AND ULNA REASON FOR EXAM: Female, 59 years old. PAIN FOLLOWING FALL, DISTAL TECHNIQUE: AP and lateral view(s) of the forearm. COMPARISON: None. FINDINGS: There is no demonstrated soft tissue swelling. Normal visualized radius. Normal visualized ulna. RAD/Forearm 2 Views IMPRESSION: Normal x-ray examination of the radius and ulna. Electronically Signed: Bon Valentin, at 15:40 EDT , Service support ,
[2019-10-26 15:21] LABS: Absolute Lymphocyte Count 2.12 X10^3/uL (0.83-4.51); Absolute Neutrophil Count 5.7 X10^3/uL (2.0-7.7); Basophil# 0.02 X10^3/uL; Basophil% 0.2 % (0-1); Eosinophil# 0.09 X10^3/uL; Hematocrit 39.4 % (37-47); Hemoglobin 12.5 g/dL (12.0-15.0); Lymphocyte # 2.12 X10^3/ul (4.0); Lymphocyte % 24.1 % (19-41); Mean Corp Hgb Conc 31.7 g/dL (32-36); Mean Corpuscular Hgb 29.4 pg (27.0-32.0); Mean Corpuscular Volume 92.7 fL (81-99); Mean Platelet Vol. 9.9 fl (6.2-12.0); Monocyte# 0.78 X10^3/uL; Monocyte% 8.9 % (0-10); NRBC Flagged by Analyzer 0 % (0-5); Neutrophil # 5.73 X10^3/uL (2.7-7.7); Neutrophil % 65.3 % (47-70); Platelet Count 212 K/mm3 (150-450); RBC Distribution Width CV 14.8 % (11.6-14.6); RBC Distribution Width SD 50.4 fl (35.1-43.9); Red Blood Count 4.25 M/mm3 (4.2-5.4); White Blood Count 8.8 K/mm3 (4.4-11.0)
[2019-10-26 15:49] LABS: AST(SGOT) 63 U/L (15-37); Alanine Aminotransfer ALT/SGPT 32 U/L (13-56); Albumin, Serum 3.1 g/dL (3.2-5.0); Alkaline Phosphatase 93 U/L (45-117); Bilirubin, Direct 0.11 mg/dL (0.00-0.30); Globulin 3.7 g/dL (2.2-4.2); Protein, Total 6.8 g/dL (6.4-8.2); T4 Free Direct 1.03 ng/dL (0.76-1.46); Thyroid Stim Hormone (TSH) 1.11 uIU/mL (0.358-3.74)
== END | disposition home or self-care (01) ==
PROVIDERS: PCP Internal Medicine; Referring Provider Internal Medicine; Visit Provider Internal Medicine
DX: I48.0 Paroxysmal atrial fibrillation (principal); R25.1 Tremor, unspecified; M79.631 Pain in right forearm
CPT/HCPCS: 36415; 73090; 80076; 84439; 84443; 85025

== ENCOUNTER 2019-10-27 13:33 | Emergency (ER) | payer MEDICARE, SELFPAY ==
[2019-10-26 10:55] VITALS: BMI 32.4
[2019-10-27 13:33] VITALS: BP 114/53; PULSE 114; RESP 18; TEMP 36.1; O2SAT 92; BMI 33.3
--- NOTE | 2019-10-27 13:56 | CT_ITS ---
STUDY: CT BRAIN WITHOUT CONTRAST REASON FOR EXAM: Female, 59 years old. MULTIPLE FALLS, HEAD/NECK PAIN RADIATION DOSAGE (If Supplied By Facility): CTDIvol = ( 60.81 ) mGy, DLP = ( 1044.28 ) mGycm TECHNIQUE: Transaxial CT imaging of the brain was performed without administration of intravenous contrast material. Individualized dose optimization techniques were used for this CT. COMPARISON: Comparison is made with prior examination of 08/12/2017. FINDINGS: Normal soft tissue structures. Normal calvarium. There is mild cerebral atrophy with widening of the extra-axial spaces and ventricular dilatation. Normal white matter tracts of the cerebral hemispheres. There are small punctate calcifications of the basal ganglia which are seen in the aging brain as a normal variant. Normal brainstem. Normal cerebellum. There is no intracranial hemorrhage. There are no findings of an acute ischemic infarction. Atherosclerotic calcification of the cavernous portions of the internal carotid arteries bilaterally. Normal visualized paranasal sinuses. CT/Brain/Head without Contrast IMPRESSION: Chronic involutional changes of the brain. Electronically Signed: Bon Valentin, at 14:40 EDT , Service support ,
--- NOTE | 2019-10-27 13:56 | CT_ITS ---
STUDY: CT CERVICAL SPINE WITHOUT CONTRAST REASON FOR EXAM: Female, 59 years old. MULTIPLE FALLS, HEAD/NECK PAIN RADIATION DOSAGE (If Supplied By Facility): CTDIvol = ( 29.79 ) mGy, DLP = ( 532.20 ) mGycm TECHNIQUE: High resolution transaxial imaging was performed without contrast material. Sagittal and coronal images were reconstructed. Individualized dose optimization techniques were used for this CT. COMPARISON: Comparison is made with prior examination dated 11/15/2016. FINDINGS: Normal craniovertebral junction. Normal anterior atlantoaxial articulation. Normal odontoid process. There is straightening of the normal cervical lordosis. Normal vertebral bodies and posterior osseous elements. C2-3: Normal endplates. Normal disc height and morphology. Normal central canal and intervertebral neuroforamina. C3-4: Normal endplates. Normal disc height and morphology. Normal central canal and intervertebral neuroforamina. C4-5: Minimal anterolisthesis of C4 on C5 most likely secondary to facet joint osteoarthritis. C5-6: Moderate degree of disc space narrowing and spondylosis. Uncovertebral arthrosis. Bilateral neural foraminal stenosis more prominent on the right side. C6-7: Marked degree of disc space narrowing. Spondylosis. Uncovertebral arthrosis. Lateral neural foraminal stenosis. C7-T1: Normal endplates. Normal disc height and morphology. Normal central canal and intervertebral neuroforamina. Atherosclerotic calcification of the carotid bifurcations. CT/Spine Cervical without Contras IMPRESSION: Multilevel degenerative changes, as described above. Electronically Signed: Bon Valentin, at 15:06 EDT , Service support ,
--- NOTE | 2019-10-27 13:57 | RAD_ITS ---
STUDY: X-RAY - THORACIC SPINE REASON FOR EXAM: Female, 59 years old. FALL 3 X IN 2 DAYS, BRUISING ON BACK AND RT FOREARM TECHNIQUE: 3 view(s) of the thoracic spine were obtained. COMPARISON: None. FINDINGS: Normal kyphosis of the thoracic spine. There is no substantial scoliosis. There is demineralization of the thoracic spine with endplate spondylosis. There is multilevel disc space narrowing of the thoracic spine. The soft tissue structures are unremarkable. RAD/Thoracic Spine 3 Views IMPRESSION: Degenerative changes. No fracture is seen. Electronically Signed: Bon Valentin, at 14:45 EDT , Service support ,
--- NOTE | 2019-10-27 13:58 | RAD_ITS ---
STUDY: X-RAY - RIGHT RADIUS AND ULNA REASON FOR EXAM: Female, 59 years old. FALL 3 X IN 2 DAYS, BRUISING ON BACK AND RT FOREARM TECHNIQUE: AP and lateral view(s) of the forearm. COMPARISON: None. FINDINGS: Soft tissue swelling overlying the distal forearm. Normal visualized radius. Nondisplaced fracture in the distal ulnar metaphysis. RAD/Forearm 2 Views IMPRESSION: Nondisplaced fracture involving the distal ulnar metaphysis. This was not well-seen on prior radiographs. Electronically Signed: Bon Valentin, at 14:45 EDT , Service support ,
--- NOTE | 2019-10-27 14:09 | ED.DCSUM_ITS ---
History of Present Illness Chief Complaint: Fall Informant: Patient Narrative: Patient presents to the emergency department for frequent falls. This is the third fall over the past week. She states that she has developed a tremor. Initially started in her fingers but now feels like it is her full body. She did see her PCP for this. She did go to her PCP after the first fall which they obtained x-rays of her forearm and she did fall and injure it. The fall today was down 6 steps. She did strike her head. She denies loss of consciousness. She has a mild headache. Complaining of neck pain. She does have chronic back pain that is exacerbated. She does take Ty Ty and gabapentin at home. This has not been helping. She denies any loss of sensation or change in muscle strength in extremities. She is complaining of upper back pain which is her chronic pain but feels worse than normal. She does have a bruise of her hip from the previous fall but has been able to ambulate without difficulty. She denies any hip pain now. Past Medical History - Allergies and Home Meds Allergies/Adverse Reactions: Allergies adhesive Adverse Reaction (Verified 10/27/19 13:36) Other baclofen Adverse Reaction (Verified 10/27/19 13:36) LETHARGY Primary Care Physician: Ana Oates MD [Primary Care Provider] - 2 Days Giles Quick DO [STAFF PHYSICIAN] - 2 Days Mauricio Ferrari MD [STAFF PHYSICIAN] - As soon as possible Prior records reviewed: Yes Surgical History: herniorrhaphy, hysterectomy, - Smoking Status: Current every day smoker - Family History Maternal Family History: Family History (Last Reviewed 10/26/19 @ 10:53 by Lela Nino) Father Hypertension Bowel disease Heart disease Kidney disease Mother Hypertension Arthritis Bowel disease Colon cancer Heart disease High cholesterol Grandmother Arthritis Breast cancer Brain tumor Lung cancer Grandfather Myocardial infarction Family History: Reports: Diabetes Paternal Family History: Family History (Last Reviewed 10/26/19 @ 10:53 by Lela Nino) Father Hypertension Bowel disease Heart disease Kidney disease Mother Hypertension Arthritis Bowel disease Colon cancer Heart disease High cholesterol Grandmother Arthritis Breast cancer Brain tumor Lung cancer Grandfather Myocardial infarction Family History: Reports: Hypertension Review of Systems All systems negative except as indicated General: Denies: Chills, Fever, Sweats Eyes: Denies: Visual changes - bilaterally, Diplopia ENT: Denies: Rhinorrhea, Sore throat Cardiovascular: Denies: Chest pain, Palpitations Respiratory: Denies: Dyspnea, Cough, Dyspnea on exertion Gastrointestinal: Denies: Abdominal pain, Nausea, Vomiting, Diarrhea Genitourinary: Denies: Dysuria, Hematuria, Frequency Musculoskeletal: Reports: Neck pain, Back pain, Swelling, Extremity Pain Skin: Denies: Rash, Wounds Neurological: Reports: Headache. Denies: Weakness, Numbness Physical Exam Vital Signs/Narrative: Vital Signs Temp Pulse Resp BP Pulse Ox 10/27/19 13:33 96.9 F L 114 H 18 114/53 L 92 Inital Vital Signs reviewed: Yes General: Well nourished, Well developed, No Acute Distress Head: Normocephalic, Atraumatic Eyes: Perrl, EOMI ENT: Moist mucous membranes, No rhinorrhea Neck: Supple, - - Patient tender to left paraspinal musculature of the cervical spine. No step-off sign appreciated. No midline spine tenderness. Cardiovascular: Regular rate, Regular rhythm, No murmurs Respiratory: No distress, CTA bilaterally, Chest nontender Abdomen: Soft, Nontender, Nondistended, Normal bowel sounds Back: Nontender, Normal Inspection, Spinal tenderness - Mild midline tenderness of thoracic spine but the majority the pain is on the left lateral side. Extremities: No edema, Tenderness - Tenderness to right forearm. There is some mild swelling present along the medial aspect. There is also area of ecchymosis, proximal medial aspect. 2+ radial pulse. 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 Sensation intact. Skin: Normal color, No rash Neurological: Alert, Oriented x3, Cranial nerves II-XII grossly intact, Normal Strength, Normal Sensation Psychological: Normal affect, Normal Mood Diagnostic/Tx/Re-eval - EKG Initial EKG Interpretation: - - Rate of 89 bpm and normal sinus rhythm. Normal intervals. Normal axis. No ST elevations or depressions appreciated. No T wave abnormalities. No prior EKG for comparison. - Medical Decision Making Patient presents to the [facility] department for frequent falls. She did strike her head today down multiple steps and is complaining of head and neck pain. As well as upper thoracic pain although this is chronic for her. She is complaining of right forearm pain as well. X-rays and CT scans obtained. Rays of the thoracic spine did not show any obvious fracture. CT scan of the head did not show any acute intracranial abnormality. Spine did not show any evidence of acute fracture but there were some degenerative changes. X-ray of the forearm did show a distal ulnar fracture that is nondisplaced. This was placed in an ulnar gutter splint. She is neurovascular intact post splinting and feels much better with the splint in place. Lab work was repeated as she had a low sodium on outpatient lab work. Did come up close to normal range. At this time no explanation for her new tremor. She is to follow-up with her PCP. Did give orthopedic surgery follow-up for the wrist fracture. At this time will discharge home in stable condition. Warning signs and symptoms for which to return to the [facility] department reviewed. She understands and is agreeable this plan. ED Disposition - Plan for ED Patient: Disposition: Home or Assisted Living Diagnosis: Ulnar fracture, Frequent falls, Tremor Instructions: Essential Tremor Disorder, ED WRIST FRACTURE General Referrals: Ana Oates MD [Primary Care Provider] - 2 Days Giles Quick DO [STAFF PHYSICIAN] - 2 Days Mauricio Ferrari MD [STAFF PHYSICIAN] - As soon as possible
[2019-10-27] MEDS: Morphine 4 MG/ML Syringe IM (14:14)
--- NOTE | 2019-10-27 14:18 | EKG12_ITS ---
Test Reason : FELL Blood Pressure : / mmHG Vent. Rate : 089 BPM Atrial Rate : 089 BPM P-R Int : 126 ms QRS Dur : 076 ms QT Int : 362 ms P-R-T Axes : 067 011 015 degrees QTc Int : 440 ms Normal sinus rhythm Low voltage QRS Borderline ECG Confirmed by LANA MICHAEL, NABOR ([id number]), medical transcription editor DEREK RAY ([id number]) on 11/01/2019 8:56:13 AM Referred By: BRADLEY Confirmed By:NABOR SCHWARTZ MD
[2019-10-27 15:59] LABS: Absolute Lymphocyte Count 1.55 X10^3/uL (0.83-4.51); Absolute Neutrophil Count 5.8 X10^3/uL (2.0-7.7); Basophil# 0.03 X10^3/uL; Basophil% 0.4 % (0-1); Eosinophil# 0.08 X10^3/uL; Hematocrit 37.9 % (37-47); Hemoglobin 12.3 g/dL (12.0-15.0); Lymphocyte # 1.55 X10^3/ul (4.0); Lymphocyte % 18.7 % (19-41); Mean Corp Hgb Conc 32.5 g/dL (32-36); Mean Corpuscular Hgb 29.3 pg (27.0-32.0); Mean Corpuscular Volume 90.2 fL (81-99); Mean Platelet Vol. 9.7 fl (6.2-12.0); Monocyte# 0.78 X10^3/uL; Monocyte% 9.4 % (0-10); NRBC Flagged by Analyzer 0 % (0-5); Neutrophil % 69.7 % (47-70); Platelet Count 207 K/mm3 (150-450); RBC Distribution Width CV 14.8 % (11.6-14.6); RBC Distribution Width SD 48.9 fl (35.1-43.9); White Blood Count 8.3 K/mm3 (4.4-11.0)
[2019-10-27 16:48] LABS: Anion Gap 2 (5-15); BUN 42 mg/dL (7-18); BUN/Creat Ratio 28.2 RATIO (10-20); Calcium,Total 8.8 mg/dL (8.5-10.1); Chloride 101 mmol/L (98-107); Creatinine, Serum 1.49 mg/dL (0.55-1.02); EST Glomerular Filtration Rate 38 mL/min (>60); Est Glom Filt Rate - Afr Amer 46 mL/min (>60); Estimated Creatinine Clearance 37.03 ml/min; Glucose 73 mg/dL (74-106); Potassium 5.1 mmol/L (3.5-5.1); Sodium Level 135 mmol/L (136-145)
[2019-10-27 17:33] VITALS: BP 109/77; PULSE 92; RESP 16; O2SAT 94
[2019-10-27 17:50] LABS: Bacteria 0 SEEN /hpf (None Seen); Mucous, Urine 0 SEEN /hpf (<or=2+); Red Blood Cells-Urine 0 SEEN /hpf (0-5)
[2019-10-27 17:54] LABS: Color, Urine Yellow (Yellow); Glucose, Dipstick 100 mg/dl (Normal); Ketone-Dipstick Negative (Negative); Leukocyte Esterase-Dipstick Negative /ul (Negative); Nitrite-Dipstick Negative (Negative); Occult Blood-Urine 150 /ul (Negative); Protein-Dipstick 30 mg/dl (Negative); Specific Gravity, Urine 1.015 (1.002-1.030); Urine Bilirubin Dipstick Negative (Negative); Urine Clarity Clear (Clear); Urine Urobilinogen Normal (Normal)
--- NOTE | 2019-10-27 17:56 | ED.VISSUMM ---
- ER Visit Summary Date of Service: 10/27/19 This patient was checked out to me with labs pending. Test Results: Abnormal Lab Results 10/27/19 10/27/19 10/27/19 15:40 15:40 17:36 WBC 8.3 RBC 4.20 Hgb 12.3 Hct 37.9 MCV 90.2 MCH 29.3 MCHC 32.5 RDW Std Deviation 48.9 H RDW Coeff of Aleksandar 14.8 H Plt Count 207 MPV 9.7 Immature Gran % (Auto) 0.800 Neut % (Auto) 69.7 Lymph % (Auto) 18.7 L Simpson % (Auto) 9.4 Eos % (Auto) 1.0 Baso % (Auto) 0.4 Absolute Neuts (auto) 5.8 Absolute Lymphs (auto) 1.55 Nucleated RBC % 0 Sodium 135 L Potassium 5.1 Chloride 101 Carbon Dioxide 32.0 Anion Gap 2 L BUN 42 H Creatinine 1.49 H Estim Creat Clear Calc 37.03 Est GFR (MDRD) Af Amer 46 L Est GFR (MDRD) Non-Af 38 L BUN/Creatinine Ratio 28.2 H Glucose 73 L Calcium 8.8 Magnesium 3.0 H Troponin I < 0.015 Urine Color Yellow Urine Clarity Clear Urine pH 6.0 Ur Specific [place] 1.015 Urine Protein 30 H Urine Glucose (UA) 100 H Urine Ketones Negative Urine Occult Blood 150 H Urine Nitrite Negative Urine Bilirubin Negative Urine Urobilinogen Normal Ur Leukocyte Esterase Negative Emergency Department Course and Treatment: Patient continued to complain of pain in her neck and right arm. She was given a dose of morphine IM. Treatment Plan: This time I do not have an explanation for the patient's tremors. She feels well and would like to go home. She will be discharged instructions to follow-up with Dr. Ferrari as soon as possible. Disposition: Discharged in improved condition. Impression: 1. Tremors, uncertain cause. 2. Fall. This note was generated with [employer] dictation software. It may contain incorrect words, spelling, and punctuation that were not noted in review of the chart prior to signing ED Disposition - Plan for ED Patient: Disposition: Home or Assisted Living Diagnosis: Ulnar fracture, Frequent falls, Tremor Instructions: Essential Tremor Disorder, ED WRIST FRACTURE General Referrals: Ana Oates MD [Primary Care Provider] - 2 Days Knapic,Giles, DO [STAFF PHYSICIAN] - 2 Days Mauricio Ferrari MD [STAFF PHYSICIAN] - As soon as possible
[2019-10-27 18:01] LABS: Squamous Epithelial Cells - UA 0-5 SEEN /hpf (5-10); White Blood Cells 0-5 SEEN /hpf (0-5)
[2019-10-27] MEDS: morphine 8 MG/ML Syringe IM (18:06)
== END 2019-10-27 18:13 | disposition home or self-care (01) ==
PROVIDERS: Emergency Provider Emergency Medicine; PCP Internal Medicine
DX: S52.691A Other fracture of lower end of right ulna, initial encounter for closed fracture (principal); R29.6 Repeated falls; R25.1 Tremor, unspecified; F17.200 Nicotine dependence, unspecified, uncomplicated; W10.9XXA Fall (on) (from) unspecified stairs and steps, initial encounter; Y93.01 Activity, walking, marching and hiking; Y92.89 Other specified places as the place of occurrence of the external cause; Y99.8 Other external cause status
CPT/HCPCS: 70450; 72072; 72125; 73090; 80048; 81001; 83735; 84484; 85025; 93005; 96372; 99282

== ENCOUNTER → 2019-11-23 11:09 | Outpatient (CLI) | payer MEDICARE, SELFPAY ==
[2019-11-23 10:55] VITALS: BMI 33.3
[2019-11-23 13:02] LABS: Anion Gap 6 (5-15); BUN 14 mg/dL (7-18); BUN/Creat Ratio 17.3 RATIO (10-20); Chloride 108 mmol/L (98-107); Creatinine, Serum 0.81 mg/dL (0.55-1.02); EST Glomerular Filtration Rate 77 mL/min (>60); Est Glom Filt Rate - Afr Amer 94 mL/min (>60); Glucose 135 mg/dL (74-106); Potassium 4.6 mmol/L (3.5-5.1); Sodium Level 141 mmol/L (136-145)
== END ==
PROVIDERS: PCP Internal Medicine; Referring Provider Internal Medicine; Visit Provider Internal Medicine
DX: I10 Essential (primary) hypertension (principal); E78.1 Pure hyperglyceridemia
CPT/HCPCS: 36415; 80048

== ENCOUNTER → 2020-01-24 | Outpatient (CLI) | payer MEDICARE, SELFPAY ==
[2020-01-24 13:38] VITALS: BMI 32.8
[2020-01-24 15:37] LABS: Vitamin B12 244 pg/mL (211-911)
[2020-01-24 15:48] LABS: Magnesium 2.3 mg/dL (1.6-2.6); Sodium Level 140 mmol/L (136-145)
[2020-01-26 16:08] LABS: Free Kappa Light Chains 18.7 mg/L (3.3-19.4); Free Lambda Light Chains 12.5 mg/L (5.7-26.3)
== END | disposition home or self-care (01) ==
LOC: LAB 14:42
PROVIDERS: PCP Internal Medicine; Visit Provider Nurse Practitioner Family
DX: G62.9 Polyneuropathy, unspecified (principal); R26.9 Unspecified abnormalities of gait and mobility; R73.9 Hyperglycemia, unspecified; R79.89 Other specified abnormal findings of blood chemistry
CPT/HCPCS: 36415; 82140; 82607; 82746; 83036; 83735; 83883; 84295

== ENCOUNTER → 2020-03-02 12:27 | Outpatient (CLI) | payer MEDICARE, SELFPAY ==
[2020-01-25 11:06] VITALS: BMI 34.1
--- NOTE | 2020-03-02 12:29 | MRI_ITS ---
STUDY: MRI BRAIN WITH AND WITHOUT CONTRAST REASON FOR EXAM: Female, 59 years old. Gait abnormality,tremors TECHNIQUE: Standardized multiplanar fat and water weighted pulse sequences were obtained. IV 17cc dotarem was administered for the contrast portion of the examination. COMPARISON: 15 November 2016, October 27 2019 FINDINGS: Normal size of the ventricles and extra-axial spaces for the patient''s age. Normal white matter tracts of the supratentorial brain. Normal bilateral basal ganglia. Normal thalami. There is no extra-axial fluid accumulation. Normal flow voids within the major intracranial circulation suggesting patency by spin echo criteria. Normal venous enhancement. There is no enhancing intra-axial or extra-axial abnormality. Normal sella turcica, pituitary gland, infundibular stalk, optic chiasm and hypothalamus. Normal tectal plate and pineal gland. Normal midbrain, lauren and medulla. Normal cerebellum. Normal basal cisterns. Normal bilateral temporal bones. Normal bilateral internal auditory canals. No demonstrated orbital abnormality, within the constraints of a routine brain study. Normal visualized paranasal sinuses. Normal calvarium and skull base. Normal visualized soft tissue structures. Normal visualized upper cervical spine. MRI/Brain W/WO Contrast IMPRESSION: Normal unenhanced and enhanced MRI of the brain. Electronically Signed: Esa Cartagena, at 15:04 EST Tel , Service support ,
== END ==
PROVIDERS: PCP Internal Medicine; Referring Provider Psychiatry & Neurology Neurology; Visit Provider Psychiatry & Neurology Neurology
DX: R26.9 Unspecified abnormalities of gait and mobility (principal)
CPT/HCPCS: 70553; A9575

== ENCOUNTER → 2020-04-25 13:41 | Outpatient (CLI) | payer MEDICARE, SELFPAY ==
[2020-04-25 13:08] VITALS: BMI 33.6
[2020-04-25 15:18] LABS: ALB/GLOB Ratio 0.7 RATIO (0.9-2.4); AST(SGOT) 14 U/L (15-37); Alanine Aminotransfer ALT/SGPT 25 U/L (13-56); Albumin, Serum 3.4 g/dL (3.2-5.0); Alkaline Phosphatase 119 U/L (45-117); Anion Gap 5 (5-15); BUN 14 mg/dL (7-18); BUN/Creat Ratio 17.8 RATIO (10-20); Calcium,Total 9.3 mg/dL (8.5-10.1); Chloride 103 mmol/L (98-107); Creatinine, Serum 0.78 mg/dL (0.55-1.02); EST Glomerular Filtration Rate 80 mL/min (>60); Est Glom Filt Rate - Afr Amer 97 mL/min (>60); Globulin 4.7 g/dL (2.2-4.2); Glucose 98 mg/dL (74-106); Potassium 4.4 mmol/L (3.5-5.1); Protein, Total 8.1 g/dL (6.4-8.2); Sodium Level 138 mmol/L (136-145)
== END ==
PROVIDERS: PCP Internal Medicine; Referring Provider Internal Medicine; Visit Provider Internal Medicine
DX: I10 Essential (primary) hypertension (principal)
CPT/HCPCS: 36415; 80053

== ENCOUNTER → 2020-04-30 12:59 | Outpatient (CLI) | payer MEDICARE, SELFPAY ==
[2020-04-25 13:08] VITALS: BMI 33.6
[2020-04-30 14:48] LABS: Amphetamine Urine VISTA NEGATIVE (<1000 ng/mL); Barbiturate Urine VISTA NEGATIVE (< 200 ng/mL); Benzodiazepine Urine VISTA NEGATIVE (< 200 ng/mL); Cocaine Urine VISTA NEGATIVE (< 300 ng/mL); Ecstacy Urine VISTA POSITIVE (< 500 ng/mL); Methadone Urine VISTA NEGATIVE (< 300 ng/mL); PCP Urine VISTA NEGATIVE (< 25 ng/mL); THC Urine VISTA POSITIVE (< 50 ng/mL); Vista UDS pH Range 5
== END ==
PROVIDERS: PCP Internal Medicine; Referring Provider Anesthesiology Pain Medicine; Visit Provider Anesthesiology Pain Medicine
DX: F11.20 Opioid dependence, uncomplicated (principal)
CPT/HCPCS: 80307

== ENCOUNTER 2020-05-01 21:57 | Observation (INO) | payer MEDICARE, SELFPAY ==
[2020-04-25 13:08] VITALS: BMI 33.6
[2020-05-01] VITALS (7 sets, daily range): BP systolic 72–97; BP diastolic 44–62; PULSE 84–105; RESP 16–18; TEMP 35.9–37.6; O2SAT 93–96; BMI 31.6; BMI 34.2
--- NOTE | 2020-05-01 22:19 | EKG12_ITS ---
Test Reason : HTN Blood Pressure : / mmHG Vent. Rate : 091 BPM Atrial Rate : 091 BPM P-R Int : 126 ms QRS Dur : 072 ms QT Int : 416 ms P-R-T Axes : 053 003 035 degrees QTc Int : 511 ms Normal sinus rhythm Prolonged QT Abnormal ECG Confirmed by AMY MICHAEL, LEE ([id number]), supervising editor news reel CHRISTO BECKHAM ([id number]) on 05/03/2020 9:48:18 AM Referred By: JB Confirmed By:LEE REYES MD
[2020-05-01] MEDS: 0.9% Normal Saline 1,000 ML 1000 ML IV (22:28)
[2020-05-01] MEDS: Ipratropium/Albuterol Sulfate 3 ML AMPUL.NEB INHALATION (22:28)
--- NOTE | 2020-05-01 22:50 | RAD_ITS ---
STUDY: X-RAY CHEST REASON FOR EXAM: Female, 60 years old. hypotension today TECHNIQUE: AP portable chest. COMPARISON: March 11, 2018. FINDINGS: The lungs are clear and expanded. There is no demonstrated pleural abnormality. Normal size heart. Normal mediastinum and joe. Normal visualized pulmonary arteries. Atherosclerotic calcification of the aortic arch. Normal visualized thoracic spine. Old right fifth posterior rib fracture. There is no demonstrated abnormality of the visualized soft tissue structures of the upper abdomen. RAD/Chest 1 View (Portable) IMPRESSION: No acute cardiopulmonary disease. Electronically Signed: Bhavesh Pearson MD at 23:18 EST , Service support ,
[2020-05-01 22:59] LABS: Absolute Neutrophil Count 5.5 X10^3/uL (2.0-7.7); Basophil# 0.03 X10^3/uL; Basophil% 0.4 % (0-1); Eosinophil# 0.03 X10^3/uL; Eosinophils% 0.4 % (0-5); Hematocrit 47.1 % (37-47); Hemoglobin 15.5 g/dL (12.0-15.0); Lymphocyte % 16.5 % (19-41); Mean Corp Hgb Conc 32.9 g/dL (32-36); Mean Corpuscular Hgb 28.3 pg (27.0-32.0); Mean Corpuscular Volume 86.1 fL (81-99); Mean Platelet Vol. 10.9 fl (6.2-12.0); Monocyte# 0.47 X10^3/uL; Monocyte% 6.5 % (0-10); NRBC Flagged by Analyzer 0 % (0-5); Neutrophil % 75.6 % (47-70); Platelet Count 215 K/mm3 (150-450); RBC Distribution Width CV 17.2 % (11.6-14.6); RBC Distribution Width SD 53.8 fl (35.1-43.9); Red Blood Count 5.47 M/mm3 (4.2-5.4); White Blood Count 7.3 K/mm3 (4.4-11.0)
[2020-05-01 23:24] LABS: ALB/GLOB Ratio 0.8 RATIO (0.9-2.4); AST(SGOT) 53 U/L (15-37); Alanine Aminotransfer ALT/SGPT 44 U/L (13-56); Albumin, Serum 3.1 g/dL (3.2-5.0); Alkaline Phosphatase 110 U/L (45-117); Anion Gap 11 (5-15); BUN 37 mg/dL (7-18); Calcium,Total 9.2 mg/dL (8.5-10.1); Chloride 92 mmol/L (98-107); Creatinine, Serum 2.31 mg/dL (0.55-1.02); EST Glomerular Filtration Rate 23 mL/min (>60); Est Glom Filt Rate - Afr Amer 28 mL/min (>60); Globulin 4.1 g/dL (2.2-4.2); Glucose 112 mg/dL (74-106); Potassium 3.6 mmol/L (3.5-5.1); Protein, Total 7.2 g/dL (6.4-8.2); Sodium Level 130 mmol/L (136-145)
[2020-05-01 23:25] LABS: Lactic Acid 6.5 mmol/L (0.4-1.9)
[2020-05-01] MEDS: 0.9% Normal Saline 1,000 ML 999 ML IV (23:40)
[2020-05-01] MEDS: Aspirin 81 MG TAB.CHEW 324 MG PO (23:42)
[2020-05-01] MEDS: MethylPREDNISolone 125 MG/2 ML Vial IV (23:43)
--- NOTE | 2020-05-01 23:48 | ED.DCSUM_ITS ---
- ER Visit Summary Date of Service: 05/01/20 Chief Complaint: Lightheaded, short of breath, weak History of Present Illness: The patient is a [address] Oates and Dr. Varela. She reports that today she has been lightheaded and shortness of breath. Last night she was lightheaded. States that her blood pressure is usually 160/100. She saw her primary care physician in the office last week and there was a misunderstanding the patient increase her dose of metoprolol from 50 mg twice a day 100 mg twice a day. Patient reports has had 1 episode of diarrhea today. She reports has had decreased urine output. She denies any fever or chills. No sore throat, cough, chest pain, or shortness of breath at this time. No abdominal pain, nausea, or vomiting. No dysuria. No rash or headache. Physical Examination: Vitals: 96.7, 72/64, 88, 16, 93% on room air which is not hypoxic. General: Well-nourished and well-developed. Head: Normocephalic atraumatic. Neck: Supple, no lymphadenopathy. No JVD. Nontender. Cardiovascular: Regular rate and rhythm. No murmurs. Respiratory: No respiratory distress. Mild wheezing bilaterally with good air movement. Abdominal: Soft, nontender, nondistended, normal bowel sounds. No guarding, rebound, or peritoneal signs. Back: Nontender. Extremities: Nontender, no edema. Skin: Normal color, no rash. Neurologic: Alert and oriented ?3. Cranial nerves II through XII are intact. Normal strength and sensation. Psych: Normal affect. Test Results: EKG is sinus at [address] changes. It is unchanged from September of last year. CBC shows an H&H of 15.5 and 47.1, stable neutrophils 76, lymphocytes 17. Chem-7 shows sodium 130, chloride 92, glucose 112, BUN of 37, creatinine of 2.31. Of note her creatinine was 0.78 on April 252020. LFTs show an albumin of 3.1 and AST of 53. Troponin is 0.083. Lactic acid is 6.5. Urinalysis shows 5-10 white blood cells and no bacteria. D-dimer is 1.02. COVID-19 rapid antigen is negative. Clinical Impression(s) from Imaging Studies Chest X-Ray 05/01/20 22:50 IMPRESSION: No acute cardiopulmonary disease. Electronically Signed: Bhavesh Pearson MD at 23:18 EST , Service support , Emergency Department Course and Treatment: Patient had negative orthostatic vital signs. However she remained very hypotensive. She is quite asymptomatic with this. She is joking with the nurses. She had 2 IVs placed and was given 30 cc/kg bolus of normal saline. Her blood pressure improved to 120/95. She was given albuterol Atrovent aerosols. She was given Solu-Medrol IV. She was given aspirin p.o. She had a Roland catheter placed to measure urinary output and to obtain urinalysis. I was unable to obtain a CT of the chest due to her acute kidney injury. Treatment Plan: The patient has responded very well to IV fluids. I do not have an obvious source of infection and her white count is normal. I do not believe that this is septic shock. I believe it was hypovolemic shock. The patient was discussed with Dr. Ramos and will be admitted to the hospital for further evaluation and treatment. Disposition: Admitted in serious condition. Impression: 1. Acute kidney injury. 2. Lactic acidosis. 3. Elevated D-dimer. 4. Indeterminate troponin. This note was generated with [employer] dictation software. It may contain incorrect words, spelling, and punctuation that were not noted in review of the chart prior to signing ED Disposition - Plan for ED Patient: Referrals: Ana Oates MD [Primary Care Provider] -
[2020-05-02] VITALS (20 sets, daily range): BP systolic 94–138; BP diastolic 61–95; PULSE 55–119; RESP 12–22; TEMP 36.7–37.3; O2SAT 90–98; BMI 34.2
[2020-05-02 00:02] LABS: International Normalized Ratio 0.9; Prothrombin Time (Protime)PT. 11.7 SECONDS (11.7-14.9)
[2020-05-02 00:07] LABS: D-Dimer Quantitative (DVT/PE) 1.02 FEU/ug/m (0.27-0.49)
[2020-05-02 00:28] LABS: Bacteria 0 SEEN /hpf (None Seen); Mucous, Urine 0 SEEN /hpf (<or=2+)
[2020-05-02 00:30] LABS: Color, Urine Yellow (Yellow); Glucose, Dipstick Normal (Normal); Ketone-Dipstick 5 mg/dl (Negative); Leukocyte Esterase-Dipstick 25 /ul (Negative); Nitrite-Dipstick Negative (Negative); Occult Blood-Urine 150 /ul (Negative); Protein-Dipstick 100 mg/dl (Negative); Urine Bilirubin Dipstick Negative (Negative); Urine Clarity Clear (Clear); Urine Urobilinogen 1 mg/dl (Normal)
[2020-05-02 00:36] LABS: Amorphous Sediment 1+; Red Blood Cells-Urine 0-5 SEEN /hpf (0-5); Squamous Epithelial Cells - UA 0-5 SEEN /hpf (5-10); White Blood Cells 5-10 SEEN /hpf (0-5)
[2020-05-02] MEDS: 0.9% Normal Saline 1,000 ML 999 ML IV (00:40)
[2020-05-02] MEDS: HYDROcodone Bitartrate/Apap 5/325 Tablet PO ×2 (01:18→17:58)
[2020-05-02] MEDS: Gabapentin 800 MG Tablet PO (01:18)
--- NOTE | 2020-05-02 01:23 | HP.PCM_ITS ---
Problem List (1) Hypotension Status: Acute (2) Borderline type 2 diabetes mellitus Status: Chronic (3) Atherosclerosis of [place] coronary artery of [place] heart without angina pectoris Status: Chronic Comment: PCI-PRABHAKAR-Mid RCA w/ 3.0 x 15 mm Resolute Integrity Stent and PRABHAKAR-Prox LAD w/ 3.0 x 9 mm Resolute Integrity Stent and POBA Ostium of D1 11/17/2016 (4) NSTEMI (non-ST elevated myocardial infarction) Status: Resolved (5) History of coronary artery stent placement Status: Resolved Comment: PCI-PRABHAKAR-Mid RCA w/ 3.0 x 15 mm Resolute Integrity Stent and PRABHAKAR-Prox LAD w/ 3.0 x 9 mm Resolute Integrity Stent and POBA Ostium of D1 11/17/2016 (6) Paroxysmal atrial fibrillation Status: Chronic (7) Essential (primary) hypertension Status: Chronic (8) Hyperlipidemia Status: Chronic Qualifiers: Hyperlipidemia type: mixed hyperlipidemia Qualified Code(s): E78.2 - Mixed hyperlipidemia (9) Generalized anxiety disorder with panic attacks Status: Chronic (10) Nicotine dependence Status: Chronic History of Present Illness Date of Admission: 05/02/20 Chief Complaint: light headedness The patient is a 60 year old F with a significant history of hypertension; nicotine dependence; proximal A. fib who presents emergency department with hypotension possibly her blood pressure at home was 66/40. Associated with symptom is lightheadedness. Patient thought that her metoprolol dose of 50 mg twice daily has been changed to 100 mg twice daily so instead of her prescribed metoprolol 50 mg twice daily patient was erroneously taking metoprolol 100 mg twice daily. Past Medical History Past Medical History (Chronic Problems): Chronic Problems (Last Reviewed 05/02/20 @ 02:[address] Eddie Ramos MD) Borderline type 2 diabetes mellitus (Chronic) Atherosclerosis of [place] coronary artery of [place] heart without angina pectoris (Chronic) PCI-PRABHAKAR-Mid RCA w/ 3.0 x 15 mm Resolute Integrity Stent and PRABHAKAR-Prox LAD w/ 3.0 x 9 mm Resolute Integrity Stent and POBA Ostium of D1 11/17/2016 Paroxysmal atrial fibrillation (Chronic) Essential (primary) hypertension (Chronic) Hyperlipidemia (Chronic) Generalized anxiety disorder with panic attacks (Chronic) Nicotine dependence (Chronic) Medical History: Medical History (Last Reviewed 05/02/20 @ 04:[address] Eddie Ramos MD) Atherosclerosis of [place] coronary artery of [place] heart without angina pectoris (Chronic) I25.10 PCI-PRABHAKAR-Mid RCA w/ 3.0 x 15 mm Resolute Integrity Stent and PRABHAKAR-Prox LAD w/ 3.0 x 9 mm Resolute Integrity Stent and POBA Ostium of D1 11/17/2016 NSTEMI (non-ST elevated myocardial infarction) (Resolved) Onset Date: 10/2016 I21.4 Paroxysmal atrial fibrillation (Chronic) I48.0 Essential (primary) hypertension (Chronic) I10 Hyperlipidemia (Chronic) E78.5 Nicotine dependence (Chronic) F17.200 Generalized anxiety disorder with panic attacks F41.1, F41.0 Low back pain M54.5 Lump of breast, left N63.20 Obesity (BMI 30-39.9) E66.9 Osteoarthritis M19.90 Vision problems H54.7 LOVE (acute kidney injury) N17.9 Fracture tibia/fibula S82.209A, S82.409A Left 11/29/2014 Pneumonia J18.9 Syncope and collapse R55 UTI (urinary tract infection) (Resolved) N39.0 Allergies adhesive Adverse Reaction (Verified 05/01/20 22:01) Other baclofen Adverse Reaction (Verified 05/01/20 22:01) LETHARGY Home Medications: Ambulatory Orders Medication Instructions Recorded DiphenhydrAMINE [Benadryl] 50 mg PO QHS 01/15/17 Aspirin E.C. [Ecotrin] 81 mg PO DAILY@0800 10/29/17 gabapentin 800 mg tablet 800 mg PO 4X/DAY tab 02/04/18 Acetaminophen [Tylenol] 1,000 mg PO Q8 PRN 03/18/18 Tizanidine HCl 4 mg PO TID 03/18/18 clopidogrel 75 mg tablet 75 mg PO DAILY #90 tab 04/13/19 rosuvastatin 40 mg tablet 40 mg PO DAILY #90 tab 05/12/19 hydrocodone 7.5 mg-acetaminophen 1 tab PO TID tab 05/18/19 325 mg tablet escitalopram oxalate 20 mg tablet 20 mg PO DAILY #90 tab 06/03/19 Lisinopril 20 mg PO BID 10/27/19 trazodone 100 mg tablet 200 mg PO QHS #60 tab 03/08/20 metoprolol tartrate 50 mg tablet 50 mg PO BID 90 Days #180 tab 04/25/20 Buspirone HCl 1 tab PO TID 05/01/20 Surgical History: Surgical History (Last Reviewed 05/02/20 @ 02:[address] Eddie Ramos MD) History of coronary artery stent placement (Resolved) Onset Date: 11/17/16 Z95.5 PCI-PRABHAKAR-Mid RCA w/ 3.0 x 15 mm Resolute Integrity Stent and PRABHAKAR-Prox LAD w/ 3.0 x 9 mm Resolute Integrity Stent and POBA Ostium of D1 11/17/2016 History of left heart catheterization Z98.890 11/17/2016 PRABHAKAR mid RCA and prox LAD H/O laminectomy Z98.890 History of colonoscopy Z98.890 06/25/18 History of total right hip replacement Z96.641 11/24/17 Hx of bone graft Onset Date: 2014 Z98. 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 Eddie Ramos MD) Father Hypertension Bowel disease Heart disease Kidney disease Mother Hypertension Arthritis Bowel disease Colon cancer Heart disease High cholesterol Grandmother Arthritis Breast cancer Brain tumor Lung cancer Grandfather Myocardial infarction History Items: Diabetes Paternal Family History: Family History (Last Reviewed 05/02/20 @ 04:[address] Eddie Ramos MD) Father Hypertension Bowel disease Heart disease Kidney disease Mother Hypertension Arthritis Bowel disease Colon cancer Heart disease High cholesterol Grandmother Arthritis Breast cancer Brain tumor Lung cancer Grandfather Myocardial infarction History Items: Hypertension Review of Systems Constitutional: Denies: Chills, Fever, Weight Change HEENT: Denies: Head Aches, Sinus Congestion, Sinus Drainage Cardiovascular: Reports: Light Headedness. Denies: Chest Pain, Palpitations Respiratory: Reports: Shortness of Breath. Denies: Cough, Shortness of breath at rest, Sputum production Gastrointestinal: Denies: Abdominal Pain, Nausea, Vomiting Genitourinary: Denies: Dysuria Musculoskeletal: Denies: Joint Pain, Joint Tenderness Skin: Denies: Rash, Wounds Neurological: Denies: Numbness, Tingling, Focal weakness Psychiatric: Denies: Anxiety, Depression, Homicidal Ideations, Suicidal Ideations Hematologic/ Lymphatic: Denies: Easy Bruising, Easy Bleeding VTE Information - Inpt Only VTE Present on Admission: No VTE Mechan Device Prophylaxis: None VTE Pharm Prophylaxis ordered?: Yes Patient Problems: Active and Suspected Problems (Last Reviewed 05/02/20 @ 02:[address] Eddie Ramos MD) Hypotension (Acute) - Physical Exam Vitals/I&O's: Vital Signs Temp Pulse Resp BP Pulse Ox 98.7 F 92 18 94/65 97 05/02/20 01:21 05/02/20 01:21 05/02/20 01:21 05/02/20 01:21 05/02/20 01:21 Oxygen Flow Rate (L/min) 2 Oxygen Delivery Method Nasal Cannula Weight: 93.3 kg Body Mass Index (BMI) 34.2 Finger Stick Blood Glucose 168 Intake and Output for Last 24 Hours 04/30/20 05/01/20 05/02/20 23:59 23:59 23:59 Intake Total 2615.05 / 2615.05 Balance 2615.05 / 2615.05 General: Alert, Oriented x3, Cooperative HEENT: Atraumatic, PERRLA, EOMI, Normocephalic Neck: Supple, No JVD, Negative Carotid Bruits Lungs: Clear to auscultation, Normal air movement Cardiovascular: Regular rate, Normal S1, Normal S2, No murmurs Abdomen: Bowel Sounds Present, Soft, Non Tender Extremities: No edema, Capillary Refill Less than 3 Seconds Skin: No rashes, No breakdown Musculoskeletal: No Tenderness to Palpation of Joints or Extremities Neurological: Cranial nerves II-XII grossly intact Psych/Mental Status: Normal Affect, Appropriate Microbiology Past 72 Hours 05/01/20 23:35 Mucosa - Nose SARS-CoV-2 Antigen (Rapid) - Final Laboratory Results 05/01/20 22:50: WBC 7.3, RBC 5.47 H, Hgb 15.5 H, Hct 47.1 H, MCV 86.1, MCH 28.3, MCHC 32.9, RDW Std Deviation 53.8 H, RDW Coeff of [place] 17.2 H, Plt Count 215, MPV 10.9, Immature Gran % (Auto) 0.600, Neut % (Auto) 75.6 H, Lymph % (Auto) 16.5 L, [place] % (Auto) 6.5, Eos % (Auto) 0.4, Baso % (Auto) 0.4, Absolute Neuts (auto) 5.5, Absolute Lymphs (auto) 1.20, Nucleated RBC % 0 05/01/20 22:50: Sodium 130 L, Potassium 3.6, Chloride 92 L, Carbon Dioxide 27.0, Anion Gap 11, BUN 37 H, Creatinine 2.31 H, Estim Creat Clear Calc 23.60, Est GFR (MDRD) Af Amer 28 L, Est GFR (MDRD) Non-Af 23 L, BUN/Creatinine Ratio 16.0, Glucose 112 H, Calcium 9.2, Total Bilirubin 0.40, AST 53 H, ALT 44, Alkaline Phosphatase 110, Troponin I 0.083 H, Total Protein 7.2, Albumin 3.1 L, Globulin 4.1, Albumin/Globulin Ratio 0.8 L 05/01/20 22:50: Lactic Acid 6.5 H* 05/01/20 23:37: PT 11.7, INR 0.9, APTT 26.0, D-Dimer Quant (PE/DVT) 1.02 H* 05/02/20 00:20: Urine Color Yellow, Urine Clarity Clear, Urine pH 5.0, Ur Specific [place] 1.010, Urine Protein 100 H, Urine Glucose (UA) Normal, Urine Ketones 5 H, Urine Occult Blood 150 H, Urine Nitrite Negative, Urine Bilirubin Negative, Urine Urobilinogen 1 H, Ur Leukocyte Esterase 25 H, Urine RBC 0-5 SEEN, Urine WBC 5-10 SEEN, Ur Squamous Epith Cells 0-5 SEEN, Amorphous Sediment 1+, Urine Bacteria 0 SEEN, Urine Mucus 0 SEEN Assessment/Plan All Active Problems (Last Reviewed 05/02/20 @ 02:[address] Eddie Ramos MD) Hypotension (Acute) NSTEMI (non-ST elevated myocardial infarction) (Resolved 10/2016) History of coronary artery stent placement (Resolved 11/17/16) Hypotension (Resolved) Lethargy (Resolved) Right hip pain (Resolved) UTI (urinary tract infection) (Resolved) The patient is a 60 year old F with a significant history of hypertension; nicotine dependence; proximal A. fib who presents to the emergency department with hypotension with home blood pressure of 66/40 and lightheadedness; and who was found to have low blood pressure and elevated lactic acid at the emergency department. Hypotension Secondary to hypovolemia and antihypertensive medications. Hypovolemic shock at emergency department but responded to fluid. Will admit to the progressive care unit. Received normal saline bolus at the ED. Maintenance normal saline hydration continued. Received Solu-Medrol at emergency department. Hold home blood pressure medications. Lactic acidosis Likely secondary to hypovolemic shock. Hydration as above Trend lactic acid. Blood culture and urine culture ordered emergency department. LOVE Creatinine presentation was 2.31 Review of old record shows creatinine baseline of less than 1. BUN is 37. At baseline patient has normal BUN. BUN over creatinine is 16 likely prerenal and trending to intrinsic renal. IV hydration as above Home lisinopril on hold. Trend BMP CAD status post stents Aspirin and Plavix continued Lisinopril and metoprolol on hold Paroxysmal A. fib Not on anticoagulation. Aspirin and Plavix continued On metoprolol. Metoprolol held secondary to hypotension. Avoid nephrotoxic's. Elevated troponin Likely secondary to type II AR from demand ischemia. Trend troponin. EKG with prolonged QTc interval. No ST or T abnormalities. QT prolongation Avoid QTC prolonging drugs. Elevated D-dimer With some shortness of breath. Elevated creatinine so CTA chest could not be done. VQ scan ordered. Abnormal urinalysis Emergency department labs showed proteinuria and positive urine occult blood. Hemoglobin A1c ordered. Tobacco abuse Counselled Declined nicotine patch as reportedly she is allergic to adhesives. Depression/anxiety disorder Buspirone continued Trazodone Lexapro continued Insomnia Benadryl and trazodone continued Chronic pain Home narcotic continued Gabapentin dose decreased secondary to LOVE. DVT prophylaxis Subcutaneous heparin ordered. Inpatient E&M: 66135 Init Hosp L3
--- NOTE | 2020-05-02 02:34 | NM_ITS ---
CLINICAL: 60-year-old female with history of shortness of breath and elevation of the d-dimer. VENTILATION-PERFUSION LUNG SCINTIGRAPHY COMPARISON: Plain film chest radiograph report 05/01/2020 FINDINGS: The patient was administered 49.4 mCi 99m Tc DTPA aerosol. The aerosol ventilation study demonstrates heterogeneous ventilation in the bilateral lung prasad without corresponding radiographic changes visualized on review of plain film chest x-ray dated 05/01/2020. Central clumping of the aerosol is identified in the bilateral hemithorax. Following the intravenous administration of 5.5 mCi of 99m Tc MAA, the pulmonary perfusion study reveals matching non-uniform perfusion in the right and left lungs correlating with the previously defined ventilation pattern. No moderate subsegmental or large segmental ventilation-perfusion mismatches are noted. There are regions of retained normal perfusion visualized. NM/Lung Scan Vent/Perf IMPRESSION: 1. VERY LOW PROBABILITY FOR PULMONARY EMBOLUS (<10%) 99m Tc DTPA aerosol ventilation / 99m Tc MAA pulmonary perfusion imaging examination, according to PIOPED II interpretive criteria with regard given to the presence of > 2 ventilation-perfusion matches without corresponding radiographic changes. (Sotsman et al, Radiology 246: 941, 2008 Soderek et al, J Nucl Med 49: 1741, 2008). 2. Central clumping of the aerosol may be secondary to obstructive airway mechanics and or clinical tachypnea. Electronically Signed: Andrae Sahni DO at 9:47 EST Tel , Service support ,
[2020-05-02 02:55] LABS: Reflex Lactate? Y
[2020-05-02] MEDS: 0.9% Normal Saline 1,000 ML 100 ML IV ×2 (03:20→11:37)
[2020-05-02] MEDS: DiphenhydrAMINE 25 MG Capsule 50 MG PO ×2 (03:57→22:16)
[2020-05-02] MEDS: traZODone 100 MG Tablet 200 MG PO (03:57)
[2020-05-02] MEDS: tiZANidine HCl 2 MG Tablet 4 MG PO (03:58)
[2020-05-02 04:08] LABS: Lactic Acid 1.1 mmol/L (0.4-1.9)
[2020-05-02 05:51] LABS: Absolute Lymphocyte Count 0.37 X10^3/uL (0.83-4.51); Basophil# 0.01 X10^3/uL; Basophil% 0.2 % (0-1); Hemoglobin 13.6 g/dL (12.0-15.0); Lymphocyte # 0.37 X10^3/ul (4.0); Lymphocyte % 6.7 % (19-41); Mean Corp Hgb Conc 30.9 g/dL (32-36); Mean Corpuscular Hgb 27.3 pg (27.0-32.0); Mean Corpuscular Volume 88.4 fL (81-99); Mean Platelet Vol. 10.5 fl (6.2-12.0); Monocyte# 0.06 X10^3/uL; Monocyte% 1.1 % (0-10); NRBC Flagged by Analyzer 0 % (0-5); Neutrophil # 5.04 X10^3/uL (2.7-7.7); Neutrophil % 91.6 % (47-70); POSITIVE DIFFERENTIAL YES; Platelet Count 175 K/mm3 (150-450); RBC Distribution Width CV 17.3 % (11.6-14.6); RBC Distribution Width SD 56.3 fl (35.1-43.9); Red Blood Count 4.98 M/mm3 (4.2-5.4); White Blood Count 5.5 K/mm3 (4.4-11.0)
[2020-05-02 05:55] LABS: Differential Indicated SCAN CRITERIA MET
[2020-05-02 06:15] LABS: Differential Comment SCANNED
[2020-05-02 06:29] LABS: Anion Gap 5 (5-15); BUN 31 mg/dL (7-18); BUN/Creat Ratio 21.7 RATIO (10-20); Chloride 103 mmol/L (98-107); Creatinine, Serum 1.43 mg/dL (0.55-1.02); EST Glomerular Filtration Rate 40 mL/min (>60); Est Glom Filt Rate - Afr Amer 48 mL/min (>60); Estimated Creatinine Clearance 38.12 ml/min; Glucose 158 mg/dL (74-106); Potassium 3.9 mmol/L (3.5-5.1); Sodium Level 134 mmol/L (136-145)
[2020-05-02] MEDS: Gabapentin 100 MG Capsule 200 MG PO ×4 (06:47→22:15)
[2020-05-02] MEDS: Heparin Injection (Vial) 5,000 UNIT/ML VIAL 5000 UNIT SC ×3 (06:47→22:15)
[2020-05-02 08:27] LABS: Hemoglobin A1c 6.1 % (3.8-5.6)
[2020-05-02] MEDS: Escitalopram Oxalate 20 MG Tablet PO (09:23)
[2020-05-02] MEDS: busPIRone 5 MG Tablet 10 MG PO ×3 (09:23→17:52)
[2020-05-02] MEDS: Aspirin E.C. 81 MG Tablet PO (09:23)
[2020-05-02] MEDS: Clopidogrel Bisulfate 75 MG Tablet PO (09:24)
--- NOTE | 2020-05-02 11:06 | CASEMGMT ---
This RN CM to room to complete CM assessment at this time. Pt is sleeping without distress and does not awaken to knocks on the door or verbal stimuli at this time. Will attempt again later. S[place]en RN CM
--- NOTE | 2020-05-02 11:23 | PCM.PN.BLA ---
Progress Note Patient seen and examined. Blood pressure improved. Patient denies current symptoms or complaints. Patient states her blood pressure medicines were recently adjusted/increased by her primary care provider. BP regimen on hold. Continue IV fluids. Lactic acidosis resolved with fluid resuscitation. Acute kidney injury also resolved with fluids. D-dimer elevated, VQ scan unremarkable. Patient is stable on exam. Continue current treatment. STROKE Vital Signs/Narrative: Vital Signs Temp Pulse Resp BP Pulse Ox 05/02/20 08:50 98.0 F 102 H 18 121/78 H 94
--- NOTE | 2020-05-02 11:40 | NURSING ---
1140: Indwelling 16F carter catheter removed via nurse driven protocol. No documentation on carter noted in [facility].
--- NOTE | 2020-05-02 13:54 | CASEMGMT ---
MAMADOU DA SILVA assessment: Face to Face with patient for initial transition planning/care coordination assessment. MAMADOU DA SILVA introduced self and role at [facility], pt voices understanding and consents to assessment at this time. Pt is sitting up in bed in no distress at this time. Pt is A/Ox4 at this time and answers all questions appropriately at this time. Care providers, pharmacy, and demographics verified at this time. Presentation: Pt has been taking too much of her metoprolol since thursday. Pt states PCP increased her dose but wasn't sure what she was supposed to be taking. States has been taking 100mg bid instead of 50mg bid. states bp has been low all day Admitting dx: Hypovolemia PCP: Иван Specialists: Amari, KAYLIN; Avery, cardio; Vonda, neuro; Pita, ortho Preferred Pharmacy: [facility] Insurance: [facility] Prescription Benefit: [facility] Living Will/HPOA: Pt has LW/HPOA and is aware that they are on file at [facility] at this time. Pt's mother, Evi Steele, is HPOA. LNOK: Evi Steele, mother; Fredy Tapia, son Living Arrangements: Pt states lives alone in 2 story home and states no concerns at home at this time. Pt states neighbors help with outdoor chores, if needed. Pt states is independent with ADL's. Transportation: Pt states her license has been suspended but she gets it back next week. Pt states no transportation concerns at this time. DME/HHC: Pt states has a rollator, grab bars, and shower seat. Pt states no need for any further DME at this time. Pt states no hx of HHC or SNF in the past. Pt states no concerns with going home at time of discharge. Pt states is on disability. Pt states smokes a pack of cigarettes daily and rarely drinks ETOH. Pt states no further concerns/needs at this time. CM to follow for any further discharge planning/needs. Advised pt to ask for CM if any further questions/concerns/needs arise, voices understanding. Pt Goal: Home Plan: Home [place] MAMADOU DA SILVA
[2020-05-02] MEDS: Atorvastatin Calcium 80 MG Tablet PO (22:15)
[2020-05-03] VITALS (7 sets, daily range): BP systolic 120–163; BP diastolic 79–96; PULSE 90–117; RESP 14–18; TEMP 36.6–36.8; O2SAT 90–95
[2020-05-03] MEDS: HYDROcodone Bitartrate/Apap 5/325 Tablet PO ×3 (00:13→15:21)
[2020-05-03 06:09] LABS: Hematocrit 44.7 % (37-47); Hemoglobin 13.9 g/dL (12.0-15.0); Mean Corp Hgb Conc 31.1 g/dL (32-36); Mean Corpuscular Hgb 27.7 pg (27.0-32.0); Mean Corpuscular Volume 89.2 fL (81-99); Mean Platelet Vol. 11.3 fl (6.2-12.0); Platelet Count 189 K/mm3 (150-450); RBC Distribution Width CV 17.2 % (11.6-14.6); RBC Distribution Width SD 56.8 fl (35.1-43.9); Red Blood Count 5.01 M/mm3 (4.2-5.4)
[2020-05-03 06:50] LABS: Anion Gap 0 (5-15); BUN 22 mg/dL (7-18); BUN/Creat Ratio 19.6 RATIO (10-20); Calcium,Total 8.3 mg/dL (8.5-10.1); Chloride 108 mmol/L (98-107); Creatinine, Serum 1.12 mg/dL (0.55-1.02); EST Glomerular Filtration Rate 53 mL/min (>60); Est Glom Filt Rate - Afr Amer 64 mL/min (>60); Estimated Creatinine Clearance 48.67 ml/min; Glucose 131 mg/dL (74-106); Sodium Level 138 mmol/L (136-145)
[2020-05-03] MEDS: Heparin Injection (Vial) 5,000 UNIT/ML VIAL 5000 UNIT SC (06:50)
[2020-05-03] MEDS: Gabapentin 100 MG Capsule 200 MG PO ×3 (06:51→15:21)
[2020-05-03] MEDS: busPIRone 5 MG Tablet 10 MG PO ×2 (08:21→13:00)
[2020-05-03] MEDS: Aspirin E.C. 81 MG Tablet PO (08:21)
[2020-05-03] MEDS: Escitalopram Oxalate 20 MG Tablet PO (11:06)
[2020-05-03] MEDS: Clopidogrel Bisulfate 75 MG Tablet PO (11:06)
--- NOTE | 2020-05-03 14:45 | DCINST_ITS ---
- Discharge Diagnoses Current Active Problems: Current Active and Chronic Problems (Last Reviewed 05/02/20 @ 04:[address] Eddie Ramos MD) Hypotension (Acute) Borderline type 2 diabetes mellitus (Chronic) Atherosclerosis of [place] coronary artery of [place] heart without angina pectoris (Chronic) PCI-PRABHAKAR-Mid RCA w/ 3.0 x 15 mm Resolute Integrity Stent and PRABHAKAR-Prox LAD w/ 3.0 x 9 mm Resolute Integrity Stent and POBA Ostium of D1 11/17/2016 Paroxysmal atrial fibrillation (Chronic) Essential (primary) hypertension (Chronic) Hyperlipidemia (Chronic) Generalized anxiety disorder with panic attacks (Chronic) Nicotine dependence (Chronic) You will use the following diet at home:: Cardiac Your food should be the consistency of: Regular Your liquids should be the consistency of: Regular/Thin Discharge Activity: Return to Normal Activity Allergies/Adverse Reactions: Allergies adhesive Adverse Reaction (Verified 05/02/20 02:52) Other baclofen Adverse Reaction (Verified 05/02/20 02:52) LETHARGY Medications to take at Discharge DiphenhydrAMINE [Benadryl] 50 mg PO QHS 01/15/17 Aspirin E.C. [Ecotrin] 81 mg PO DAILY@0800 10/29/17 gabapentin 800 mg tablet 800 mg PO 4X/DAY tab 02/04/18 Acetaminophen [Tylenol] 1,000 mg PO Q8 PRN 03/18/18 Tizanidine HCl 4 mg PO TID 03/18/18 clopidogrel 75 mg tablet 75 mg PO DAILY #90 tab 04/13/19 rosuvastatin 40 mg tablet 40 mg PO DAILY #90 tab 05/12/19 hydrocodone 7.5 mg-acetaminophen 325 mg tablet 1 tab PO TID tab 05/18/19 escitalopram oxalate 20 mg tablet 20 mg PO DAILY #90 tab 06/03/19 trazodone 100 mg tablet 200 mg PO QHS #60 tab 03/08/20 metoprolol tartrate 50 mg tablet 50 mg PO BID 90 Days #180 tab 04/25/20 Buspirone HCl 1 tab PO TID 05/01/20 Lisinopril 20 mg PO DAILY #30 tab 05/03/20 The following prescriptions were given: Lisinopril 20 mg PO DAILY #30 tab Primary Care Physician: Ana Oates MD [Primary Care Provider] - Please follow up with your Primary Care Physician in: 1-2 weeks Test Results: Test results from this visit will be discussed in further detail at your follow- up appointment, if applicable. Proposed Discharge Date: 05/03/20
--- NOTE | 2020-05-03 14:48 | PCM.DC ---
- Discharge Diagnoses Current Active Problems: Current Active and Chronic Problems (Last Reviewed 05/02/20 @ 04:[address] Eddie Ramos MD) Hypotension (Acute) Borderline type 2 diabetes mellitus (Chronic) Atherosclerosis of [place] coronary artery of [place] heart without angina pectoris (Chronic) PCI-PRABHAKAR-Mid RCA w/ 3.0 x 15 mm Resolute Integrity Stent and PRABHAKAR-Prox LAD w/ 3.0 x 9 mm Resolute Integrity Stent and POBA Ostium of D1 11/17/2016 Paroxysmal atrial fibrillation (Chronic) Essential (primary) hypertension (Chronic) Hyperlipidemia (Chronic) Generalized anxiety disorder with panic attacks (Chronic) Nicotine dependence (Chronic) You will use the following diet at home:: Cardiac Your food should be the consistency of: Regular Your liquids should be the consistency of: Regular/Thin Discharge Activity: Return to Normal Activity Allergies/Adverse Reactions: Allergies adhesive Adverse Reaction (Verified 05/02/20 02:52) Other baclofen Adverse Reaction (Verified 05/02/20 02:52) LETHARGY Medications to take at Discharge DiphenhydrAMINE [Benadryl] 50 mg PO QHS 01/15/17 Aspirin E.C. [Ecotrin] 81 mg PO DAILY@0800 10/29/17 gabapentin 800 mg tablet 800 mg PO 4X/DAY tab 02/04/18 Acetaminophen [Tylenol] 1,000 mg PO Q8 PRN 03/18/18 Tizanidine HCl 4 mg PO TID 03/18/18 clopidogrel 75 mg tablet 75 mg PO DAILY #90 tab 04/13/19 rosuvastatin 40 mg tablet 40 mg PO DAILY #90 tab 05/12/19 hydrocodone 7.5 mg-acetaminophen 325 mg tablet 1 tab PO TID tab 05/18/19 escitalopram oxalate 20 mg tablet 20 mg PO DAILY #90 tab 06/03/19 trazodone 100 mg tablet 200 mg PO QHS #60 tab 03/08/20 metoprolol tartrate 50 mg tablet 50 mg PO BID 90 Days #180 tab 04/25/20 Buspirone HCl 1 tab PO TID 05/01/20 Lisinopril 20 mg PO DAILY #30 tab 05/03/20 The following prescriptions were given: Lisinopril 20 mg PO DAILY #30 tab Primary Care Physician: Ana Oates MD [Primary Care Provider] - Please follow up with your Primary Care Physician in: 1 week Test Results: Test results from this visit will be discussed in further detail at your follow-up appointment, if applicable. Proposed Discharge Date: 05/03/20
--- NOTE | 2020-05-03 15:55 | DS.PCM_ITS ---
<Ian Rollins - Last Filed: 05/03/20 15:55> Discharge Date and Diagnosis - Problem List Patient Problems: Active and Suspected Problems (Last Reviewed 05/02/20 @ 04:[address] Eddie Ramos MD) Hypotension (Acute) Date of Admission: 05/02/20 Date of Discharge: 05/03/20 - Primary Discharge Diagnosis Acute Problems: Active Problems (Last Reviewed 05/02/20 @ 04:[address] Eddie Ramos MD) Hypotension (Acute) 2/2 accidental overdose - Secondary Discharge Diagnosis Chronic Problems: Chronic Problems (Last Reviewed 05/02/20 @ 04:[address] Eddie Ramos MD) Borderline type 2 diabetes mellitus (Chronic) Atherosclerosis of [place] coronary artery of [place] heart without angina pectoris (Chronic) PCI-PRABHAKAR-Mid RCA w/ 3.0 x 15 mm Resolute Integrity Stent and PRABAHKAR-Prox LAD w/ 3.0 x 9 mm Resolute Integrity Stent and POBA Ostium of D1 11/17/2016 Paroxysmal atrial fibrillation (Chronic) Essential (primary) hypertension (Chronic) Hyperlipidemia (Chronic) Generalized anxiety disorder with panic attacks (Chronic) Nicotine dependence (Chronic) Hospital Course and Treatment Imaging Results: RAD/Chest 1 View (Portable) IMPRESSION: No acute cardiopulmonary disease. NM/Lung Scan Vent/Perf IMPRESSION: 1. VERY LOW PROBABILITY FOR PULMONARY EMBOLUS (<10%) 99m Tc DTPA aerosol ventilation / 99m Tc MAA pulmonary perfusion imaging examination, according to PIOPED II interpretive criteria with regard given to the presence of > 2 ventilation-perfusion matches without corresponding radiographic changes. Operations: None Procedures: None Summary of Care Provided: Hospital Course: The patient is a 60 year old F with pmhx of HTN, CAD with prior stents, pAfib, who presented to the ER with c/o lightheadedness. She was found to have a BP of 66/40. She noted that she had taken too much metoprolol. She also had evidence of LOVE. She was treated with IV fluids and her home BP meds were held. D dimer was elevated. A VQ scan was obtained as her renal function was not compatible with CTA chest. VQ did not demonstrate evidence of PE. Her BP and renal function were improved by the following day. I contacted her PCP to discuss her BP treatment (Dr. Oates). The patient was placed on metoprolol 50 mg po bid and lisinopril 20 mg qd. She was discharged home in stable condition. She had no further SOB or Lightheadedness. She will need to see her PCP in 1 week. This patient was seen by Ian Rollins PA-C under the supervision of Dr. Sidhu. [] Patient Problems: Active and Suspected Problems (Last Reviewed 05/02/20 @ 04:[address] Eddie Ramos MD) Hypotension (Acute) - Physical Exam Vitals/I&O's: Vital Signs Temp Pulse Resp BP Pulse Ox 98.3 F 117 H 14 162/96 H 90 05/03/20 15:13 05/03/20 15:13 05/03/20 15:13 05/03/20 15:13 05/03/20 15:13 Oxygen Flow Rate (L/min) 2 Oxygen Delivery Method Room Air Weight: 205 lb 14.588 oz Body Mass Index (BMI) 34.2 Finger Stick Blood Glucose 168 Intake and Output for Last 24 Hours 05/01/20 05/02/20 05/03/20 23:59 23:59 23:59 Intake Total 5123.38 / 5123.38 Output Total 500 / 500 Balance 4623.38 / 4623.38 General: Alert, Oriented x3, Cooperative HEENT: Atraumatic, PERRLA, EOMI, Normocephalic Neck: Supple, No JVD, Negative Carotid Bruits Lungs: Clear to auscultation, Normal air movement Cardiovascular: Regular rate, No murmurs Abdomen: Bowel Sounds Present, Soft, Non Tender Extremities: No edema, Capillary Refill Less than 3 Seconds Skin: No rashes, No breakdown Musculoskeletal: No Tenderness to Palpation of Joints or Extremities Neurological: Cranial nerves II-XII grossly intact Psych/Mental Status: Normal Affect, Appropriate, Alert and oriented to time, place, person, mood and affect Microbiology Past 72 Hours 05/01/20 23:35 Mucosa - Nose SARS-CoV-2 Antigen (Rapid) - Final Laboratory Results 05/03/20 05:45: WBC 12.0 H, RBC 5.01, Hgb 13.9, Hct 44.7, MCV 89.2, MCH 27.7, MCHC 31.1 L, RDW Std Deviation 56.8 H, RDW Coeff of Aleksandar 17.2 H, Plt Count 189, MPV 11.3 05/03/20 05:45: Sodium 138, Potassium 4.0, Chloride 108 H, Carbon Dioxide 30.0, Anion Gap 0 L, BUN 22 H, Creatinine 1.12 H, Estim Creat Clear Calc 48.67, Est GFR (MDRD) Af Amer 64, Est GFR (MDRD) Non-Af 53 L, BUN/Creatinine Ratio 19.6, Glucose 131 H, Calcium 8.3 L Discharge Diet: Low fat/ Low Cholesterol, 2000 mg Sodium Diet Discharge Activity: Return to Normal Activity Home Medications: Medications to take at Discharge DiphenhydrAMINE [Benadryl] 50 mg PO QHS 01/15/17 Aspirin E.C. [Ecotrin] 81 mg PO DAILY@0800 10/29/17 gabapentin 800 mg tablet 800 mg PO 4X/DAY tab 02/04/18 Acetaminophen [Tylenol] 1,000 mg PO Q8 PRN 03/18/18 Tizanidine HCl 4 mg PO TID 03/18/18 clopidogrel 75 mg tablet 75 mg PO DAILY #90 tab 04/13/19 rosuvastatin 40 mg tablet 40 mg PO DAILY #90 tab 05/12/19 hydrocodone 7.5 mg-acetaminophen 325 mg tablet 1 tab PO TID tab 05/18/19 escitalopram oxalate 20 mg tablet 20 mg PO DAILY #90 tab 06/03/19 trazodone 100 mg tablet 200 mg PO QHS #60 tab 03/08/20 metoprolol tartrate 50 mg tablet 50 mg PO BID 90 Days #180 tab 04/25/20 Buspirone HCl 1 tab PO TID 05/01/20 Lisinopril 20 mg PO DAILY #30 tab 05/03/20 Following Prescriptions Were Given to Patient: Lisinopril 20 mg PO DAILY #30 tab Primary Care Physician: Ana Oates MD [Primary Care Provider] - Please follow up with your Primary Care Physician in: 1 week Disposition: Home Minutes spent on discharge:: 35 Patient Condition:: Stable Medical Necessity - Tobacco Use Smoking Status: Current every day smoker Tobacco Use: Cigarettes Meaningful Use Info Meaningful Use Diagnoses (Choose all that apply): None applicable <Jessica Sidhu - Last Filed: 05/03/20 16:35> Discharge Date and Diagnosis - Primary Discharge Diagnosis Acute Problems: Active Problems (Last Reviewed 05/02/20 @ 04:[address] Eddie Ramos MD) Hypotension (Acute) - Secondary Discharge Diagnosis Chronic Problems: Chronic Problems (Last Reviewed 05/02/20 @ 04:[address] Eddie Ramos MD) Borderline type 2 diabetes mellitus (Chronic) Atherosclerosis of [place] coronary artery of [place] heart without angina pectoris (Chronic) PCI-PRABHAKAR-Mid RCA w/ 3.0 x 15 mm Resolute Integrity Stent and PRABHAKAR-Prox LAD w/ 3.0 x 9 mm Resolute Integrity Stent and POBA Ostium of D1 11/17/2016 Paroxysmal atrial fibrillation (Chronic) Essential (primary) hypertension (Chronic) Hyperlipidemia (Chronic) Generalized anxiety disorder with panic attacks (Chronic) Nicotine dependence (Chronic) Hospital Course and Treatment Summary of Care Provided: I agree with above and the following is a representation my independent history and physical exam Ms. Steele is a 60 year old WF noted to the emergency department [facility] on 05/02/2020 for primary complaint of lightheadedness. She had recently had some her antihypertensive doses changed recently and she had a misunderstanding of the amount she was supposed to be taking and accidentally took a 100% increase rather than a 50% increase as desired by her primary care physician. She was given IV fluids and her blood pressure medications were held throughout her hospitalization. A D-dimer was obtained in the emergency depar tment and was mildly elevated at 1.02. A VQ scan was done secondary to mild LOVE on admission and was low probability for PE. Her creatinine on admission was 2.31 and this was likely related to hypoperfusion secondary to hypotension as her systolic pressure was in the 60s on admission. Her serum creatinine had decreased to 1.12 on the day of discharge and she was overall very stable. We discussed with her primary care physician about her current episode and what antihypertensive she desired for her at her last appointment and she requested that we place her on metoprolol 50 mg twice daily and lisinopril 20 mg daily. She was discharged in stable condition and she will follow up with her primary care physician in 1 week. Discharge diagnoses Acute hypotension secondary to accidental antihypertensive medication overdose- resolved LOVE-resolved Lactic acidosis-Resolved Elevated troponin-demand ischemia secondary to hypotension Microscopic hematuria-recommend follow-up UA in a week as patient has history of tobacco abuse CAD Hypertension Anxiety disorder Hyperlipidemia Nicotine dependence Obesity OA PAF Discharge time greater than 35 minutes Subjective: Patient states she is feeling great and ready to go home. Has gotten up to go to the bathroom independently and has no lightheadedness. - Physical Exam Vitals/I&O's: Vital Signs Temp Pulse Resp BP Pulse Ox 98.3 F 117 H 14 162/96 H 90 05/03/20 15:13 05/03/20 15:13 05/03/20 15:13 05/03/20 15:13 05/03/20 15:13 Oxygen Flow Rate (L/min) 2 Oxygen Delivery Method Room Air Weight: 93.4 kg Body Mass Index (BMI) 34.2 Finger Stick Blood Glucose 168 Intake and Output for Last 24 Hours 05/01/20 05/02/20 05/03/20 23:59 23:59 23:59 Intake Total 5123.38 / 5123.38 Output Total 500 / 500 Balance 4623.38 / 4623.38 General: Alert, Oriented x3, Cooperative, No apparent distress, Well developed, Well nourished, - - Obese white female sitting up in bed, appears well, nontoxic, no acute distress HEENT: Atraumatic, PERRLA, EOMI, Normocephalic, EAC Clear Oral: Moist Mucosa, No Gingival or Mucosal Lesions/ Ulcerations, - - Mallampati 3 Neck: Supple, No JVD, Trachea Midline, Thyroid Normal Size and Texture Lungs: Clear to auscultation, Normal air movement, No rhonchi, No wheeze, No rales, Diminished - Diffusely Cardiovascular: Regular rate, Regular Rhythm, Normal S1, Normal S2, No murmurs, No Ectopic Activity, No rub noted, No Gallop Abdomen: Bowel Sounds Present, Soft, Non Tender, Non-Distended, No hernias noted Extremities: No clubbing, No cyanosis, No edema, Capillary Refill Less than 3 Seconds, Peripheral Pulses Normal Skin: No rashes, No breakdown Musculoskeletal: No Tenderness to Palpation of Joints or Extremities Neurological: Cranial nerves II-XII grossly intact, Neuro grossly intact Psych/Mental Status: Normal Affect, Appropriate Microbiology Past 72 Hours 05/01/20 23:35 Mucosa - Nose SARS-CoV-2 Antigen (Rapid) - Final Laboratory Results 05/03/20 05:45: WBC 12.0 H, RBC 5.01, Hgb 13.9, Hct 44.7, MCV 89.2, MCH 27.7, MCHC 31.1 L, RDW Std Deviation 56.8 H, RDW Coeff of Aleksandar 17.2 H, Plt Count 189, MPV 11.3 05/03/20 05:45: Sodium 138, Potassium 4.0, Chloride 108 H, Carbon Dioxide 30.0, Anion Gap 0 L, BUN 22 H, Creatinine 1.12 H, Estim Creat Clear Calc 48.67, Est GFR (MDRD) Af Amer 64, Est GFR (MDRD) Non-Af 53 L, BUN/Creatinine Ratio 19.6, Glucose 131 H, Calcium 8.3 L Inpatient E&M: [id number] Disch Hosp
== END 2020-05-03 15:43 | disposition home or self-care (01) | DRG 682 ==
LOC: ED 05-02 00:09 → PCU 05-02 07:09
PROVIDERS: Nurse Practitioner Family; Admitting Provider Hospitalist; Emergency Provider Emergency Medicine; PCP Internal Medicine; Visit Provider Internal Medicine
DX: N17.9 Acute kidney failure, unspecified (principal); R57.1 Hypovolemic shock; I21.A1 Myocardial infarction type 2; E87.2 Acidosis; T44.7X1A Poisoning by beta-adrenoreceptor antagonists, accidental (unintentional), initial encounter; F17.210 Nicotine dependence, cigarettes, uncomplicated; E86.1 Hypovolemia; I25.10 Atherosclerotic heart disease of native coronary artery without angina pectoris; I48.0 Paroxysmal atrial fibrillation; R82.90 Unspecified abnormal findings in urine; F32.9 Major depressive disorder, single episode, unspecified; I25.2 Old myocardial infarction; F41.1 Generalized anxiety disorder; G47.00 Insomnia, unspecified; E66.9 Obesity, unspecified; G89.29 Other chronic pain; Z95.5 Presence of coronary angioplasty implant and graft; Z79.899 Other long term (current) drug therapy; Z68.34 Body mass index [BMI] 34.0-34.9, adult; F11.20 Opioid dependence, uncomplicated
CPT/HCPCS: 36415; 51702; 71045; 78582; 80048; 80053; 80307; 81001; 83036; 83605; 84484; 85025; 85027; 85379; 85610; 85730; 87040; 87086; 87426; 93005; 94640; 96361; 96372; 96374; 97802; 99218; 99285; 99406; A9540; A9567; J7030; A4216; G0378

== ENCOUNTER → 2020-05-15 12:58 | Outpatient (CLI) | payer MEDICARE, SELFPAY ==
[2020-04-25 13:08] VITALS: BMI 33.6
[2020-05-03 16:15] VITALS: BMI 34.2
--- NOTE | 2020-05-15 13:00 | BI_ITS ---
MAMMOGRAPHY - BILATERAL SCREENING REASON FOR EXAM: Female, 60 years old. Routine annual screening examination. PERTINENT HISTORY: Non-contributory. TECHNIQUE: Digital bilateral breast reg (3D mammographic acquisition) in the CC and MLO projections. 2-D mediolateral oblique (MLO) and craniocaudad (CC) views of both breasts were obtained. CAD: Full Field Digital Mammography with Computer Added Detection was performed. COMPARISON: Comparison is made with prior study dated 05/10/2018. FINDINGS: Breast Composition: The breasts are heterogeneously dense, which may obscure small masses. There are no dominant masses or suspicious calcifications. Stable small benign appearing bilateral axillary lymph nodes. No other significant abnormalities are identified. There has been no significant change since the prior study. BI/SCRN MAMM (CAD)W/REG BILAT IMPRESSION: Stable bilateral screening mammogram. Yearly follow-up mammogram recommended. (A) ASSESSMENT CATEGORY: BIRADS Category 2: Benign. A letter regarding these results will be sent to the patient by the facility within 30 days. Approximately 10% of breast cancers are not detected by mammography. A normal mammogram should not delay biopsy of a clinically suspicious abnormality. [id number] Electronically Signed: Bon Valentin MD at 13:54 EST , Service support ,
== END ==
PROVIDERS: PCP Internal Medicine; Referring Provider Internal Medicine; Visit Provider Internal Medicine
DX: Z12.31 Encounter for screening mammogram for malignant neoplasm of breast (principal)
CPT/HCPCS: 77063; 77067

== ENCOUNTER → 2020-05-28 12:24 | Outpatient (CLI) | payer MEDICARE, SELFPAY ==
[2020-05-03 16:15] VITALS: BMI 34.2
[2020-05-28 13:15] LABS: Anion Gap 5 (5-15); BUN 10 mg/dL (7-18); BUN/Creat Ratio 13.5 RATIO (10-20); Calcium,Total 8.7 mg/dL (8.5-10.1); Chloride 101 mmol/L (98-107); Creatinine, Serum 0.74 mg/dL (0.55-1.02); EST Glomerular Filtration Rate 85 mL/min (>60); Est Glom Filt Rate - Afr Amer 103 mL/min (>60); Glucose 100 mg/dL (74-106); Potassium 4.6 mmol/L (3.5-5.1); Sodium Level 139 mmol/L (136-145)
== END ==
PROVIDERS: PCP Internal Medicine; Referring Provider Internal Medicine; Visit Provider Internal Medicine
DX: I10 Essential (primary) hypertension (principal)
CPT/HCPCS: 36415; 80048

== ENCOUNTER 2020-06-15 14:37 | Outpatient (RCR) | payer MEDICARE, SELFPAY ==
[2020-05-03 16:15] VITALS: BMI 34.2
[2020-06-15] MEDS: COVID-19 VACC, MRNA(PFIZER)/PF 30 MCG/0.3 ML SYRINGE IM (13:06)
[2020-07-06] MEDS: COVID-19 VACC, MRNA(PFIZER)/PF 30 MCG/0.3 ML SYRINGE IM (13:12)
== END 2020-06-15 23:59 ==
LOC: IMMUN 14:37
PROVIDERS: PCP Internal Medicine; Visit Provider Family Medicine
DX: Z23 Encounter for immunization (principal)
CPT/HCPCS: 0001A; 0002A; 91300

== ENCOUNTER → 2020-08-20 15:46 | Outpatient (CLI) | payer MEDICARE, SELFPAY ==
[2020-08-20 15:31] VITALS: BMI 35.4
[2020-08-20 17:49] LABS: Anion Gap 3 (5-15); BUN 13 mg/dL (7-18); BUN/Creat Ratio 14.4 RATIO (10-20); Calcium,Total 9.3 mg/dL (8.5-10.1); Chloride 93 mmol/L (98-107); EST Glomerular Filtration Rate 68 mL/min (>60); Est Glom Filt Rate - Afr Amer 82 mL/min (>60); Glucose 90 mg/dL (74-106); Potassium 4.5 mmol/L (3.5-5.1); Sodium Level 128 mmol/L (136-145)
== END ==
PROVIDERS: PCP Internal Medicine; Referring Provider Internal Medicine; Visit Provider Internal Medicine
DX: I10 Essential (primary) hypertension (principal)
CPT/HCPCS: 36415; 80048

== ENCOUNTER 2020-08-28 17:53 | Emergency (ER) | payer MEDICARE, SELFPAY ==
[2020-08-20 15:31] VITALS: BMI 35.4
[2020-08-28 17:54] VITALS: BP 137/65; PULSE 98; RESP 16; TEMP 36.6; BMI 33.3
--- NOTE | 2020-08-28 18:03 | CT_ITS ---
STUDY: CT BRAIN WITHOUT CONTRAST REASON FOR EXAM: Female, 60 years old. SYNCOPE/FALL ON THURSDAY, + LOC, HIT HEAD ON THINNERS RADIATION DOSAGE (If Supplied By Facility): CTDIvol = ( 44.99 ) mGy, DLP = ( 779.24 ) mGycm TECHNIQUE: Transaxial CT imaging of the brain was performed without administration of intravenous contrast material. Individualized dose optimization techniques were used for this CT. COMPARISON: Head CT dated October 27, 2019 FINDINGS: Normal soft tissue structures. Normal calvarium. There is mild cerebral atrophy with widening of the extra-axial spaces and ventricular dilatation. There are areas of decreased attenuation within the white matter tracts of the supratentorial brain, consistent with microvascular disease changes. There are small punctate calcifications of the basal ganglia which are seen in the aging brain as a normal variant. Normal brainstem. Normal cerebellum. There is no intracranial hemorrhage. There are no findings of an acute ischemic infarction. Normal visualized paranasal sinuses. CT/Brain/Head without Contrast IMPRESSION: Chronic involutional changes of the brain. Electronically Signed: Ming Buenrostro MD at 19:28 EDT , Service support ,
--- NOTE | 2020-08-28 18:25 | RAD_ITS ---
STUDY: X-RAY - RIGHT ANKLE REASON FOR EXAM: Female, 60 years old. FALL -- IN WAITING ROOM TECHNIQUE: 3 view(s) of the ankle. COMPARISON: None. FINDINGS: Small bony fragments seen at the undersurface of the lateral malleolus are compatible with sequela of an acute avulsion injury. Mild to moderate soft tissue swelling is present around ankle joint. No additional fractures. The bony structures are demineralized. Normal medial and lateral malleoli. Normal tibiotalar articulation and ankle mortise. Normal visualized talus and calcaneus. The visualized subtalar, talonavicular, calcaneocuboid and tarsal articulations are normal. RAD/Ankle min 3 Views IMPRESSION: Acute avulsion fracture of the undersurface of the lateral malleolus and soft tissue swelling Electronically Signed: Ming Buenrostro MD at 19:17 EDT , Service support ,
--- NOTE | 2020-08-28 18:25 | RAD_ITS ---
STUDY: X-RAY - LEFT ANKLE REASON FOR EXAM: Female, 60 years old. FALL TECHNIQUE: 3 view(s) of the ankle. COMPARISON: None. FINDINGS: Cortical plate screw construct of the distal one third fibula noted with a healed fracture deformity. 3 screws are present in the distal tibial metaphysis and through the medial malleolus. A healed fracture deformity of the medial malleolus is present. The bony structures are demineralized. Mild soft tissue swelling of the lower leg and ankle. No visualized acute fracture.. Normal medial and lateral malleoli. Normal tibiotalar articulation and ankle mortise. Normal visualized talus and calcaneus. The visualized subtalar, talonavicular, calcaneocuboid and tarsal articulations are normal. RAD/Ankle min 3 Views IMPRESSION: 1. No visualized acute fracture. Mild soft tissue swelling Electronically Signed: Ming Buenrostro MD at 19:13 EDT , Service support ,
[2020-08-28 18:29] LABS: Absolute Lymphocyte Count 1.57 X10^3/uL (0.83-4.51); Absolute Neutrophil Count 5.2 X10^3/uL (2.0-7.7); Basophil# 0.03 X10^3/uL; Basophil% 0.4 % (0-1); Eosinophil# 0.05 X10^3/uL; Eosinophils% 0.7 % (0-5); Hematocrit 43.3 % (37-47); Hemoglobin 13.6 g/dL (12.0-15.0); Lymphocyte # 1.57 X10^3/ul (0.83-4.51); Lymphocyte % 21.1 % (19-41); Mean Corp Hgb Conc 31.4 g/dL (32-36); Mean Corpuscular Hgb 27.9 pg (27.0-32.0); Mean Corpuscular Volume 88.9 fL (81-99); Mean Platelet Vol. 9.4 fl (6.2-12.0); Monocyte# 0.59 X10^3/uL; Monocyte% 7.9 % (0-10); NRBC Flagged by Analyzer 0.5 % (0-5); Neutrophil # 5.16 X10^3/uL (2.7-7.7); Neutrophil % 69.4 % (47-70); Platelet Count 268 K/mm3 (150-450); RBC Distribution Width CV 17.2 % (11.6-14.6); Red Blood Count 4.87 M/mm3 (4.2-5.4); White Blood Count 7.4 K/mm3 (4.4-11.0)
[2020-08-28 18:54] LABS: ALB/GLOB Ratio 0.6 RATIO (0.9-2.4); AST(SGOT) 29 U/L (15-37); Alanine Aminotransfer ALT/SGPT 23 U/L (13-56); Albumin, Serum 2.7 g/dL (3.2-5.0); Alkaline Phosphatase 81 U/L (45-117); Anion Gap 4 (5-15); BUN 25 mg/dL (7-18); BUN/Creat Ratio 23.4 RATIO (10-20); Calcium,Total 9.3 mg/dL (8.5-10.1); Chloride 100 mmol/L (98-107); Creatinine, Serum 1.07 mg/dL (0.55-1.02); EST Glomerular Filtration Rate 56 mL/min (>60); Est Glom Filt Rate - Afr Amer 67 mL/min (>60); Estimated Creatinine Clearance 50.94 ml/min; Globulin 4.5 g/dL (2.2-4.2); Glucose 95 mg/dL (74-106); Potassium 5.2 mmol/L (3.5-5.1); Protein, Total 7.2 g/dL (6.4-8.2); Sodium Level 138 mmol/L (136-145)
--- NOTE | 2020-08-28 19:03 | EX.ED.DYSGE1 ---
HPI History of Present Illness Chief Complaint: Syncope Informant: patient Onset/Context/Timing Onset: Days Narrative Narrative: Patient presents after suffering a syncopal episode 4 days ago. Patient states that she been riding in the car to [facility] where they visited a cemetery. When she went to stand up from the car she felt very lightheaded. She tried to make it back to the car but her legs gave out on her and she had a brief syncopal episode. She does report twisting her ankles and striking her forehead. She had a bruise across the right breast area. Since that time she is been ambulating with a walker secondary to bilateral ankle pain. Yesterday she was trying to go down some steps and fell backwards striking the back of her head and her right lateral ribs. Her neighbor brought her to the emergency room today for evaluation. [facility] Medical History (Updated 08/28/20 @ 20:[address] Latisha Fragoso MD) LOVE (acute kidney injury) Atherosclerosis of [place] coronary artery of [place] heart without angina pectoris Essential (primary) hypertension Fracture tibia/fibula Generalized anxiety disorder with panic attacks Hyperlipidemia Low back pain Lump of breast, left Nicotine dependence NSTEMI (non-ST elevated myocardial infarction) (10/2016) Obesity (BMI 30-39.9) Osteoarthritis Paroxysmal atrial fibrillation Pneumonia Syncope and collapse UTI (urinary tract infection) Vision problems Home Medications diphenhydramine HCl 50 mg PO QHS 01/15/17 [History Last Taken 04/30/20 04:00] aspirin 81 mg PO DAILY@0800 10/29/17 [History Last Taken 05/01/20 10:00] gabapentin 800 mg tablet 800 mg PO 4X/DAY tab 02/04/18 [History Last Taken 05/02/20] acetaminophen 1,000 mg PO Q8 PRN 03/18/18 [History Last Taken 03/16/18] tizanidine 4 mg PO TID 03/18/18 [History Last Taken 05/01/20 16:00] hydrocodone 7.5 mg-acetaminophen 325 mg tablet 1 tab PO TID tab 05/18/19 [History Last Taken 05/02/20] lisinopril 20 mg tablet 20 mg PO BID tab 05/09/20 [History Last Taken Unknown] rosuvastatin 40 mg tablet 40 mg PO DAILY #90 tab 05/17/20 [Rx Last Taken Unknown] escitalopram oxalate 20 mg tablet 20 mg PO DAILY #90 tab 06/20/20 [Rx Last Taken Unknown] albuterol sulfate 90 mcg/actuation aerosol inhaler 2 puff INHALATION Q6H PRN #18 gm 07/19/20 [Rx Last Taken Unknown] metoprolol tartrate 25 mg tablet 75 mg PO BID 90 Days #540 tablet 07/19/20 [Rx Last Taken Unknown] trazodone 100 mg tablet 200 mg PO QHS #60 tab 08/01/20 [Rx Last Taken Unknown] clopidogrel 75 mg tablet 75 mg PO DAILY #90 tab 08/17/20 [Rx Last Taken Unknown] buspirone 10 mg tablet 20 mg PO TID tab 08/20/20 [History Last Taken Unknown] doxycycline monohydrate 100 mg PO BID #20 cap 08/28/20 [Rx Last Taken Unknown] hydrochlorothiazide 12.5 mg PO QODAY 08/28/20 [History Last Taken Unknown] Allergy/AdvReac Type Severity Reaction Status Date / Time adhesive AdvReac Other Verified 08/20/20 15:29 baclofen AdvReac LETHARGY Verified 08/20/20 15:29 Family History Father Hypertension Bowel disease Heart disease Kidney disease Mother Hypertension Arthritis Bowel disease Colon cancer Heart disease High cholesterol Grandmother Arthritis Breast cancer Brain tumor Lung cancer Grandfather Myocardial infarction Surgical History H/O laminectomy History of colonoscopy History of coronary artery stent placement (11/17/16) History of left heart catheterization History of splenectomy History of total right hip replacement Hx of bone graft (2014) S/P ORIF (open reduction internal fixation) fracture Social History Smoking Status: Current every day smoker tobacco type: cigarettes Tobacco: How many years used: 35 alcohol intake: current alcohol intake frequency: holidays/special occasions only Alcohol type: hard liquor substance use type: former substance user Date of last use: 20 years ago and marijuana caffeine: Yes Type: carbonated beverages and coffee what type of physical activity do you participate in: other details: Physical Therapy frequency: 3-4 times per week seatbelt use: always do you feel safe at home: Yes ROS ROS ED Constitutional Constitutional ED: Denies chills or fever(s) Eyes Eyes: Denies change in vision ENT ENT ED: Denies sore throat Cardiovascular Cardiovascular: Reports other Details: Right lateral rib pain Respiratory/Chest Respiratory/Chest: Denies cough or dyspnea Gastrointestinal Gastrointestinal: Denies abdominal pain, diarrhea, nausea or vomiting Genitourinary Genitourinary ED: Denies dysuria Musculoskeletal Musculoskeletal: Reports arthralgias; Denies back pain Integumentary Reports Abrasions; Denies rash Neurologic Neurologic: Denies headache(s) or weakness Psychiatric Psychiatric: Denies anxiety or depression Endocrine Endocrinology: Denies polydipsia or polyuria Allergic/Immunologic Allergic/Immunologic ED: Denies urticaria EXAM Physical Exam Const Vital Signs: 08/28/20 17:54 08/28/20 18:45 Temperature 97.8 F Temperature Source Temporal Pulse Rate 98 Respiratory Rate 16 Respiratory Effort Normal Respiratory Depth Normal Respiratory Pattern Normal Blood Pressure 137/65 H Blood Pressure Mean 89 Oxygen Delivery Method Room Air Positive well nourished and well developed General Appearance ED: well developed HEENT Reports normocephalic and head/scalp atraumatic Eyes PERRL and EOMs intact bilaterally Neck supple Chest Wall inspection of chest normal Chest Narrative: Right lateral chest wall tenderness. No crepitus. Resp normal respiratory effort and clear to auscultation bilaterally Cardio regular rate and regular rhythm GI normal to inspection, nondistended, normoactive bowel sounds Palpation: soft Extremity Extremity Narrative: Abrasion to lateral malleolus of right ankle with surrounding erythema and ecchymosis. Mild diffuse tenderness throughout the left ankle. No obvious deformities. Neuro oriented x3 and no sensory deficits noted Sensorium / Orientation: alert Motor Exam: strength 5/5 throughout Psych mental status grossly normal MDM MDM MDM Narrative Medical decision making narrative: Patient had lab work, head CT, bilateral ankle x-rays obtained per nursing protocol. I also added rib x-rays and treated her pain with morphine. Lab Data Labs: Laboratory Results - last 24 hr 08/28/20 08/28/20 08/28/20 18:15 18:15 18:15 WBC 7.4 RBC 4.87 Hgb 13.6 Hct 43.3 MCV 88.9 MCH 27.9 MCHC 31.4 L RDW Std Deviation 54.0 H RDW Coeff of Aleksandar 17.2 H Plt Count 268 MPV 9.4 Immature Gran % (Auto) 0.500 Neut % (Auto) 69.4 Lymph % (Auto) 21.1 Sunflower % (Auto) 7.9 Eos % (Auto) 0.7 Baso % (Auto) 0.4 Absolute Neuts (auto) 5.2 Absolute Lymphs (auto) 1.57 Nucleated RBC % 0.5 PT 13.0 INR 1.0 Sodium 138 Potassium 5.2 H Chloride 100 Carbon Dioxide 34.0 H Anion Gap 4 L BUN 25 H Creatinine 1.07 H Estim Creat Clear Calc 50.94 Est GFR (MDRD) Af Amer 67 Est GFR (MDRD) Non-Af 56 L BUN/Creatinine Ratio 23.4 H Glucose 95 Calcium 9.3 Total Bilirubin 0.40 AST 29 ALT 23 Alkaline Phosphatase 81 Total Protein 7.2 Albumin 2.7 L Globulin 4.5 H Albumin/Globulin Ratio 0.6 L Radiography Diagnostic Testing: Radiology Impression Brain CT 08/28/20 18:03 IMPRESSION: Chronic involutional changes of the brain. Electronically Signed: Ming Buenrostro MD at 19:28 EDT , Service support , Ankle X-Ray 08/28/20 18:25 IMPRESSION: Acute avulsion fracture of the undersurface of the lateral malleolus and soft tissue swelling Electronically Signed: Ming Buenrostro MD at 19:17 EDT , Service support , Ankle X-Ray 08/28/20 18:25 IMPRESSION: 1. No visualized acute fracture. Mild soft tissue swelling Electronically Signed: Ming Buenrostro MD at 19:13 EDT , Service support , Ribs w/Chest X-Ray 08/28/20 19:32 IMPRESSION: RIBS: No acute fracture. CHEST: No definite acute or significant abnormality seen. Electronically Signed: Rickey Mc MD at 20:04 EDT , Service support , Treatment and Re-Evaluation Comments:: Patient was given a dose of morphine for pain. Right ankle x-ray per my interpretation reveals small pull off fracture of the distal fibula. Questionable old versus new. Left ankle x-ray reveals hardware to be intact. Rib series per my interpretation reveals no obvious fracture. Radiologist interpretation is reviewed. Head CT is unremarkable. Test results discussed with the patient. She was placed in a stirrup splint. Due to the erythema around the scab on her right lateral ankle she will be covered with antibiotics. She has a walker at home that she will use to help her with ambulation. Discharge Plan Triage Chief Complaint: Syncope ED Provider: Latisha Fragoso Dx/Rx/DC Orders Clinical Impression: Avulsion fracture of ankle, Cellulitis, Contusion of rib Instructions: ED Ankle Fracture, ED Cellulitis, ED Rib Contusion or Minor Fracture Prescriptions: New doxycycline monohydrate 100 MG capsule 100 mg PO BID Qty: 20 RF: 0 No Action gabapentin 800 mg tablet 800 mg PO 4X/DAY RF: 0 hydrocodone-acetaminophen [[place]] 7.5-325 mg tablet 1 tab PO TID RF: 0 lisinopril 20 mg tablet 20 mg PO BID RF: 0 metoprolol tartrate 25 mg tablet 75 mg PO BID 90 Days Qty: 540 RF: 2 albuterol sulfate 90 mcg/actuation HFA aerosol inhaler 2 puff INHALATION Q6H PRN (Reason: shortness of breath or wheezing) Qty: 18 RF: 2 diphenhydramine HCl 25 MG capsule 50 mg PO QHS RF: 0 aspirin 81 MG tablet 81 mg PO DAILY@0800 RF: 0 acetaminophen 500 MG tablet 1,000 mg PO Q8 PRN (Reason: Pain) RF: 0 tizanidine 4 MG tablet 4 mg PO TID RF: 0 buspirone 10 mg tablet 20 mg PO TID RF: 0 hydrochlorothiazide 12.5 mg tablet 12.5 mg PO QODAY RF: 0 rosuvastatin 40 mg tablet 40 mg PO DAILY Qty: 90 RF: 3 escitalopram oxalate [Lexapro] 20 mg tablet 20 mg PO DAILY Qty: 90 RF: 3 trazodone 100 mg tablet 200 mg PO QHS Qty: 60 RF: 2 clopidogrel 75 mg tablet 75 mg PO DAILY Qty: 90 RF: 3 Primary Care Provider: Ana Oates Referrals: Ana Oates MD [Primary Care Provider] - 1 Week Michael Millan DPM [STAFF PHYSICIAN] - 1 Week Disposition Disposition: Home, self care
[2020-08-28] MEDS: Morphine 4 MG/ML Syringe IV (19:24)
[2020-08-28] MEDS: Ondansetron 4 MG/2 ML Vial IV (19:24)
--- NOTE | 2020-08-28 19:32 | RAD_ITS ---
STUDY: X-RAY - UNILATERAL RIBS ( RIGHT ) WITH CHEST REASON FOR EXAM: Female, 60 years old. fall TECHNIQUE - RIBS: 6 view(s) of the ribs. TECHNIQUE - CHEST: Single AP portable view of the chest. COMPARISON: None. FINDINGS - RIBS: Normal visualized ribs without a demonstrated fracture. FINDINGS - CHEST: The lungs are hyperexpanded. There are coarsened interstitial markings suggestive of mild chronic fibrosis. No gross focal infiltrates. No gross effusions. There is mild cardiac enlargement. Normal mediastinum and joe. Normal visualized pulmonary arteries. There is atherosclerotic calcification of the aortic arch with tortuosity. Normal visualized thoracic spine. Normal visualized ribs, clavicles, and shoulders. There is no demonstrated abnormality of the visualized soft tissue structures of the upper abdomen. RAD/Ribs Uni Min 3V w/PA Chest IMPRESSION: RIBS: No acute fracture. CHEST: No definite acute or significant abnormality seen. Electronically Signed: Rickey Mc MD at 20:04 EDT , Service support ,
[2020-08-28] MEDS: Doxycycline 100 MG CAPSULE PO (21:29)
[2020-08-28 21:30] VITALS: RESP 15
[2020-08-28 21:31] VITALS: BP 100/72; PULSE 74; RESP 16; TEMP 36.8; O2SAT 97
== END 2020-08-28 21:40 | disposition home or self-care (01) ==
PROVIDERS: Emergency Provider Emergency Medicine; PCP Internal Medicine
DX: S82.831A Other fracture of upper and lower end of right fibula, initial encounter for closed fracture (principal); S20.211A Contusion of right front wall of thorax, initial encounter; L03.115 Cellulitis of right lower limb; I25.10 Atherosclerotic heart disease of native coronary artery without angina pectoris; I10 Essential (primary) hypertension; E78.5 Hyperlipidemia, unspecified; M19.90 Unspecified osteoarthritis, unspecified site; E66.9 Obesity, unspecified; Z79.899 Other long term (current) drug therapy; F17.210 Nicotine dependence, cigarettes, uncomplicated; W18.30XA Fall on same level, unspecified, initial encounter; Y93.89 Activity, other specified; Y92.89 Other specified places as the place of occurrence of the external cause; Y99.8 Other external cause status
CPT/HCPCS: 70450; 71101; 73610; 80053; 85025; 85610; 96374; 96375; 99283; A4216; J2405

== ENCOUNTER 2020-08-29 12:42 | Inpatient (IN) | payer MEDICARE, SELFPAY ==
[2020-08-28 17:54] VITALS: BMI 33.3
[2020-08-29] VITALS (17 sets, daily range): BP systolic 89–129; BP diastolic 53–97; PULSE 60–78; RESP 13–20; TEMP 36.4–37.2; O2SAT 82–98; BMI 38.2
--- NOTE | 2020-08-29 13:25 | CT_ITS ---
EXAM: CT HEAD WITHOUT INTRAVENOUS CONTRAST CLINICAL INDICATION: falls x 3 on Plavix TECHNIQUE: Multiple axial images were obtained of the head without intravenous contrast. This CT exam was performed using one or more of the following dose reduction techniques: automated exposure control, adjustment of the mA and/or kV according to patient size, and/or use of iterative reconstruction technique. This report was created using [employer] report generation technology. COMPARISON: CT head without contrast 08/28/2020. FINDINGS: BRAIN AND EXTRA-AXIAL SPACES: Unremarkable. No intra- or extra-axial hemorrhage. No evidence of acute infarct. No intracranial mass or mass effect. There is preservation of the hardy/white matter interface. Posterior fossa structures are unremarkable. Ventricles are appropriate for age. No hydrocephalus. Basal cisterns are patent. BONES/JOINTS: Unremarkable. No discrete lytic or blastic abnormalities. SINUSES: Unremarkable as visualized. Clear. MASTOID AIR CELLS: Unremarkable. Clear. ORBITS: Visualized globes, extraocular muscles, optic nerves and retrobulbar fat appear unremarkable. OTHER FINDINGS: Tilted head positioning. CT/Brain/Head without Contrast IMPRESSION: No acute findings in the head/brain and unchanged when compared to 08/28/2020. Electronically Signed: Monster Barrios MD at 14:37 EDT , Service support ,
--- NOTE | 2020-08-29 13:30 | EDS_ITS ---
HPI HPI - Fall History of Present Illness Chief Complaint: Fall Informant: patient Occured/Mechanism Occurred: Days Mechanism/Context: Yes same level fall and Yes trip Pain/Injury Pain Location: lower extremity Quality of Pain: Sharp and Aching Current Severity: Mild Maximum Severity: Mild Associated Symptoms Associated Symptoms: Negative for Parasthesias, Weakness, Loss of function, Inability to ambulate, Loss of consciousness and Amnesia Narrative Narrative: 60-year-old female history of being on Plavix. That she seen here yesterday for falls. Had x-rays at that time which were basically negative except for an avulsion fracture. She also had CT of her brain which was negative. Since then she left she was walking in her driveway tripped over a gutter fell struck her head and then she said she fell 2 other times. She complains of right thigh pain and head injury. She denies any nausea, vomiting or diarrhea. Prior similar symptoms: Yes Recent Illness/Hospitalization: No PFSH PFS Medical History (Updated 08/29/20 @ 15:[address] Jaden Jenkins MD) LOVE (acute kidney injury) Atherosclerosis of [place] coronary artery of [place] heart without angina pectoris Essential (primary) hypertension Fracture tibia/fibula Generalized anxiety disorder with panic attacks Hyperlipidemia Low back pain Lump of breast, left Nicotine dependence NSTEMI (non-ST elevated myocardial infarction) (10/2016) Obesity (BMI 30-39.9) Osteoarthritis Paroxysmal atrial fibrillation Pneumonia Syncope and collapse UTI (urinary tract infection) Vision problems Home Medications diphenhydramine HCl 50 mg PO QHS 01/15/17 [History Last Taken 04/30/20 04:00] aspirin 81 mg PO DAILY@0800 10/29/17 [History Last Taken 05/01/20 10:00] gabapentin 800 mg tablet 800 mg PO 4X/DAY tab 02/04/18 [History Last Taken 05/02/20] acetaminophen 1,000 mg PO Q8 PRN 03/18/18 [History Last Taken 03/16/18] tizanidine 4 mg PO TID 03/18/18 [History Last Taken 05/01/20 16:00] hydrocodone 7.5 mg-acetaminophen 325 mg tablet 1 tab PO TID tab 05/18/19 [History Last Taken 05/02/20] lisinopril 20 mg tablet 20 mg PO BID tab 05/09/20 [History Last Taken Unknown] rosuvastatin 40 mg tablet 40 mg PO DAILY #90 tab 05/17/20 [Rx Last Taken Unknown] escitalopram oxalate 20 mg tablet 20 mg PO DAILY #90 tab 06/20/20 [Rx Last Taken Unknown] albuterol sulfate 90 mcg/actuation aerosol inhaler 2 puff INHALATION Q6H PRN #18 gm 07/19/20 [Rx Last Taken Unknown] metoprolol tartrate 25 mg tablet 75 mg PO BID 90 Days #540 tablet 07/19/20 [Rx Last Taken Unknown] trazodone 100 mg tablet 200 mg PO QHS #60 tab 08/01/20 [Rx Last Taken Unknown] clopidogrel 75 mg tablet 75 mg PO DAILY #90 tab 08/17/20 [Rx Last Taken Unknown] buspirone 10 mg tablet 20 mg PO TID tab 08/20/20 [History Last Taken Unknown] doxycycline monohydrate 100 mg PO BID #20 cap 08/28/20 [Rx Last Taken Unknown] hydrochlorothiazide 12.5 mg PO QODAY 08/28/20 [History Last Taken Unknown] Allergy/AdvReac Type Severity Reaction Status Date / Time adhesive AdvReac Other Verified 08/29/20 12:43 baclofen AdvReac LETHARGY Verified 08/29/20 12:43 Family History Father Hypertension Bowel disease Heart disease Kidney disease Mother Hypertension Arthritis Bowel disease Colon cancer Heart disease High cholesterol Grandmother Arthritis Breast cancer Brain tumor Lung cancer Grandfather Myocardial infarction Surgical History H/O laminectomy History of colonoscopy History of coronary artery stent placement (11/17/16) History of left heart catheterization History of splenectomy History of total right hip replacement Hx of bone graft (2014) S/P ORIF (open reduction internal fixation) fracture Social History Smoking Status: Current every day smoker tobacco type: cigarettes Tobacco: How many years used: 35 alcohol intake: current alcohol intake frequency: holidays/special occasions only Alcohol type: hard liquor substance use type: former substance user Date of last use: 20 years ago and marijuana caffeine: Yes Type: carbonated beverages and coffee what type of physical activity do you participate in: other details: Physical Therapy frequency: 3-4 times per week seatbelt use: always do you feel safe at home: Yes ROS ROS ED ROS Narrative She denies any recent illness. Review of Systems ROS Unobtainable: Denies due to encephalopathy Constitutional Constitutional ED: Denies fever(s) Eyes Eyes: Denies change in vision ENT ENT ED: Denies ear pain or sore throat Cardiovascular Cardiovascular: Denies chest pain or palpitations Respiratory/Chest Respiratory/Chest: Denies cough or dyspnea Gastrointestinal Gastrointestinal: Denies abdominal pain, constipation, diarrhea, nausea or vomiting Genitourinary Genitourinary ED: Denies dysuria or hematuria Musculoskeletal Musculoskeletal: Denies arthralgias or myalgias Integumentary Denies rash Neurologic Neurologic: Denies headache(s) Psychiatric Psychiatric: Denies depression Endocrine Endocrinology: Denies polyuria Hematologic/Lymphatic Hematologic/Lymphatic: Denies easy bruising Allergic/Immunologic Allergic/Immunologic ED: Denies urticaria EXAM Physical Exam Const Vital Signs: 08/29/20 12:43 08/29/20 12:46 08/29/20 13:12 Temperature 98.1 F Temperature Source Temporal Pulse Rate 78 69 Respiratory Rate 15 15 Respiratory Effort Short of Breath Labored Blood Pressure 114/97 H 125/93 H Blood Pressure Mean 102 103 Pulse Ox 87 96 93 Oxygen Delivery Method Room Air Nasal Cannula Nasal Cannula Oxygen Flow Rate (L/min) 2 2 08/29/20 14:03 Temperature Temperature Source Pulse Rate 70 Respiratory Rate 18 Respiratory Effort Blood Pressure 115/81 H Blood Pressure Mean 92 Pulse Ox 95 Oxygen Delivery Method Nasal Cannula Oxygen Flow Rate (L/min) 2 Positive well nourished and well developed; Negative for contractures General Appearance ED: well developed; Negative for contractures HEENT Reports normocephalic atraumatic; Negative for trauma, hematoma or tenderness Eyes PERRL and EOMs intact bilaterally General Eye ED: Negative for pale conjunctiva Neck No full ROM and No supple Chest Wall inspection of chest normal and palpation of chest normal Resp normal respiratory effort, no retractions and clear to auscultation bilaterally Auscultation: Negative for rales, rhonchi or wheezes Cardio regular rate, regular rhythm, S1 normal heart sound, S2 normal heart sound and no murmurs Back/Spine no CVA tenderness General Back: Negative for CVA tenderness Cervical Spine: Negative for cervical spine tenderness Thoracic Spine / Upper Back: Negative for thoracic spinal tenderness Lumbar Spine / Lower Back: Negative for lumbar spinal tenderness or paraspinal muscle tenderness Extremity normal to inspection, full ROM and no calf tenderness Extremity Narrative: Mild tenderness to her right mid femur. No gross bony deformity. She is flexion-extension of both hips knees ankle and feet. There is mild swelling to her right ankle. That was diagnosed as an avulsion fracture last night. Neuro oriented x3 [place] Coma Scale: document GCS findings Sensorium / Orientation: alert, oriented to person, oriented to place and oriented to time; Negative for lethargic or stuporous Psych mental status grossly normal Skin Rashes: no rashes MDM MDM MDM Narrative Medical decision making narrative: 60-year-old female with frequent falls on Plavix. States that she fell and hit her head 3 different times in the last 24 hours. She was seen here yesterday was diagnosed with an avulsion fracture of her right ankle. She is also complaining of right thigh pain post fall. X-rays being obtained. Nurse attempt to ambulate the patient to evaluate her for balance and ambulation she refused. Discussed with patient. She does not want a be sent to a penitentiary. She does not feel condyle being discharged home. She wants to know why she is falling. I told her we do not have a specific reason for at this time. I will have the hospitalist evaluate her for possible admission and further evaluation. I did review her labs from yesterday. Lab Data Labs: I reviewed the patient's labs from yesterday and they were unremarkable. Her right femur x-ray today 2 views AP lateral shows no acute abnormality. There is a prior right hip arthroplasty. Is interpreted by myself and the radiologist and we both agree. CT of the brain showed no acute abnormality note was read by the radiologist and reviewed by me. Radiography Diagnostic Testing: Radiology Impression Brain CT 08/29/20 13:25 IMPRESSION: No acute findings in the head/brain and unchanged when compared to 08/28/2020. Electronically Signed: Monster Barrios MD at 14:37 EDT , Service support , Femur X-Ray 08/29/20 14:25 IMPRESSION: 1. No acute fracture or dislocation of the right femur. 2. Intact right metallic hip arthroplasty. Electronically Signed: Monster Barrios MD at 15:29 EDT , Service support , Discharge Plan Triage Chief Complaint: Fall ED Provider: Jaden Jenkins Dx/Rx/DC Orders Clinical Impression: Falls, Closed head injury, History of atrial fibrillation, Adult failure to thrive Prescriptions: No Action gabapentin 800 mg tablet 800 mg PO 4X/DAY RF: 0 hydrocodone-acetaminophen [[place]] 7.5-325 mg tablet 1 tab PO TID RF: 0 lisinopril 20 mg tablet 20 mg PO BID RF: 0 metoprolol tartrate 25 mg tablet 75 mg PO BID 90 Days Qty: 540 RF: 2 albuterol sulfate 90 mcg/actuation HFA aerosol inhaler 2 puff INHALATION Q6H PRN (Reason: shortness of breath or wheezing) Qty: 18 RF: 2 diphenhydramine HCl 25 MG capsule 50 mg PO QHS RF: 0 aspirin 81 MG tablet 81 mg PO DAILY@0800 RF: 0 acetaminophen 500 MG tablet 1,000 mg PO Q8 PRN (Reason: Pain) RF: 0 tizanidine 4 MG tablet 4 mg PO TID RF: 0 buspirone 10 mg tablet 20 mg PO TID RF: 0 hydrochlorothiazide 12.5 mg tablet 12.5 mg PO QODAY RF: 0 doxycycline monohydrate 100 MG capsule 100 mg PO BID Qty: 20 RF: 0 rosuvastatin 40 mg tablet 40 mg PO DAILY Qty: 90 RF: 3 escitalopram oxalate [Lexapro] 20 mg tablet 20 mg PO DAILY Qty: 90 RF: 3 trazodone 100 mg tablet 200 mg PO QHS Qty: 60 RF: 2 clopidogrel 75 mg tablet 75 mg PO DAILY Qty: 90 RF: 3 Primary Care Provider: Ana Oates Referrals: Ana Oates MD [Primary Care Provider] -
[2020-08-29] MEDS: HYDROcodone Bitartrate/Apap 5/325 Tablet PO ×2 (14:01→22:17)
--- NOTE | 2020-08-29 14:25 | RAD_ITS ---
EXAM: XR RIGHT FEMUR, 2 VIEWS CLINICAL INDICATION: Fall injury and right leg pain. TECHNIQUE: Frontal and lateral views of the right femur. This report was created using [employer] report generation technology. COMPARISON: None. FINDINGS: BONES/JOINTS: Intact right metallic hip arthroplasty. No acute fracture or dislocation of the right femur. No sclerotic or destructive changes observed. SOFT TISSUES: Unremarkable. No soft tissue swelling or gas. No radiopaque foreign body. RAD/Femur Min 2 Views IMPRESSION: 1. No acute fracture or dislocation of the right femur. 2. Intact right metallic hip arthroplasty. Electronically Signed: Monster Barrios MD at 15:29 EDT , Service support ,
--- NOTE | 2020-08-29 16:19 | NURSING ---
MED SURG WHITE OBS FALLS, FAILURE TO THRIVE
--- NOTE | 2020-08-29 16:34 | HP.PCM.HOS_ITS ---
Documented by User: Julian CHANG 08/29/20 17:15 HPI - General HPI Narrative Patient is a 60-year-old female who presents to the ED at [facility] on 08/29/2020 with a chief complaint of multiple falls. Patient reports that for the past 5 days she has suffered multiple falls in multiple different locations; patient endorses falling on her back, falling on her knees and rolling her ankle and falling sideways. Patient reports that in the past 24 hours she has hit her head at least 3 times. Patient endorses hitting her head and is unsure about whether she may have lost consciousness or not in any of these falling episodes. Patient reports pain on the back of her head, in her upper back, on her knees bilaterally and on her ankles bilaterally. Of note, patient was evaluated in the ED for multiple falls at which time the only diagnosis was an avulsion fracture of the right ankle confirmed by x-ray. Brain CT was obtained yesterday and was negative for any acute findings. Review of systems was positive for headache, vision changes and possible loss of consciousness. Denies chest pain, shortness of breath, hemoptysis, fever, chills, N/V/D. Denies any recent illness or known exposure, to include Covid. Past medical history is significant for HTN, CAD, hyperlipidemia, NSTEMI status post stent placement, paroxysmal atrial fibrillation, anxiety, depression, syncope and collapse. Vital signs stable and patient is afebrile. CBC unremarkable. BMP is significant for mild hyperkalemia at 5.2, mildly elevated creatinine at 1.07. Updated brain CT demonstrated no acute findings in the head/brain and are unchanged from brain CT obtained on 08/28/2020. X-ray of the right femur demonstrates no acute fracture or dislocation and is significant for an intact right metallic hip arthroplasty. Patient was given [place] in the ED, for which her pain is amenable. Patient will be admitted for medical observation. [facility] Medical History (Updated 08/29/20 @ 16:53 by Julian CHANG) LOVE (acute kidney injury) Atherosclerosis of [place] coronary artery of [place] heart without angina pectoris Essential (primary) hypertension Fracture tibia/fibula Generalized anxiety disorder with panic attacks Hyperlipidemia Low back pain Lump of breast, left Nicotine dependence NSTEMI (non-ST elevated myocardial infarction) (10/2016) Obesity (BMI 30-39.9) Osteoarthritis Paroxysmal atrial fibrillation Pneumonia Smoker Syncope and collapse UTI (urinary tract infection) Vision problems Home Medications diphenhydramine HCl 50 mg PO QHS 01/15/17 [History Last Taken 08/28/20] aspirin 81 mg PO DAILY@0800 10/29/17 [History Last Taken 08/29/20] gabapentin 800 mg tablet 800 mg PO 4X/DAY tab 02/04/18 [History Last Taken 08/29/20] acetaminophen 1,000 mg PO BID 03/18/18 [History Last Taken 08/29/20] tizanidine 4 mg PO TID 03/18/18 [History Last Taken 08/29/20] lisinopril 20 mg tablet 20 mg PO BID tab 05/09/20 [History Last Taken 08/29/20] rosuvastatin 40 mg tablet 40 mg PO DAILY #90 tab 05/17/20 [Rx Last Taken 08/28/20] escitalopram oxalate 20 mg tablet 20 mg PO DAILY #90 tab 06/20/20 [Rx Last Taken 08/29/20] albuterol sulfate 90 mcg/actuation aerosol inhaler 2 puff INHALATION Q6H PRN #18 gm 07/19/20 [Rx Last Taken 08/29/20] trazodone 100 mg tablet 200 mg PO QHS #60 tab 08/01/20 [Rx Last Taken 08/28/20] clopidogrel 75 mg tablet 75 mg PO DAILY #90 tab 08/17/20 [Rx Last Taken 08/29/20] buspirone 10 mg tablet 20 mg PO TID tab 08/20/20 [History Last Taken 08/29/20] doxycycline monohydrate 100 mg PO BID #20 cap 08/28/20 [Rx Last Taken 08/28/20] hydrochlorothiazide 12.5 mg PO QODAY 08/28/20 [History Last Taken 08/28/20] hydrocodone-acetaminophen 1 tab PO TID 08/29/20 [History Last Taken 08/29/20] metoprolol tartrate 25 mg PO BID 08/29/20 [History Last Taken 08/29/20] metoprolol tartrate 50 mg PO BID 08/29/20 [History Last Taken 08/29/20] Allergy/AdvReac Type Severity Reaction Status Date / Time adhesive AdvReac Other Verified 08/29/20 12:43 baclofen AdvReac LETHARGY Verified 08/29/20 12:43 Family History Father Hypertension Bowel disease Heart disease Kidney disease Mother Hypertension Arthritis Bowel disease Colon cancer Heart disease High cholesterol Grandmother Arthritis Breast cancer Brain tumor Lung cancer Grandfather Myocardial infarction Surgical History H/O laminectomy History of colonoscopy History of coronary artery stent placement (11/17/16) History of left heart catheterization History of splenectomy History of total right hip replacement Hx of bone graft (2014) S/P ORIF (open reduction internal fixation) fracture Social History Smoking Status: Current every day smoker tobacco type: cigarettes Tobacco: How many years used: 35 alcohol intake: current alcohol intake frequency: holidays/special occasions only Alcohol type: hard liquor substance use type: former substance user Date of last use: 20 years ago and marijuana caffeine: Yes Type: carbonated beverages and coffee what type of physical activity do you participate in: other details: Physical Therapy frequency: 3-4 times per week seatbelt use: always do you feel safe at home: Yes ROS Constitutional Constitutional: Denies anorexia, change in weight, chills, fatigue, fever(s), malaise, night sweats, weakness or other Eyes Eyes: Reports blurry vision and change in vision; Denies change in eye color, discharge from eye(s), double vision, erythema, eye pain, loss of vision or other ENT HEENT: Reports epistaxis; Denies abnormal hearing, dysphagia, ear pain, headache(s), hearing loss, nasal congestion, nasal discharge, post nasal drip, sinus pressure, sore throat or other Cardiovascular Cardiovascular: Denies chest pain, claudication, dyspnea on exertion, edema, lightheadedness, orthopnea, palpitations, paroxysmal nocturnal dyspnea, rapid heart rate, syncope or other Respiratory/Chest Respiratory/Chest: Reports excessive phlegm production; Denies cough, dyspnea, hemoptysis, productive cough, shortness of breath at rest, shortness of breath with exertion, wheezing or other Gastrointestinal Gastrointestinal: Denies abdominal pain, coffee ground emesis, constipation, diarrhea, dyspepsia, hematemesis, hematochezia, loose stools, melena, nausea, vomiting or other Genitourinary Genitourinary: Denies burning urination, difficulty urinating, dysuria, hematuria, nocturia, urinary frequency, urinary hesitancy, urinary incontinence, urinary urgency or other Musculoskeletal Musculoskeletal: Reports arthralgias, back pain, joint pain, joint stiffness, joint swelling, myalgias and neck pain Neurologic Neurologic: Reports confusion, disequilibrium, dizziness, focal weakness, headache(s) and syncope; Denies abnormal gait, abnormal speech, numbness, paresthesias, seizure-like activity, seizures, tingling, tremor(s) or other Psychiatric Psychiatric: Denies anxiety, depression, homicidal ideation, suicidal ideation or other Endocrine Endocrinology: Denies change in body appearance, cold intolerance, excessive sweating, heat intolerance, polydipsia, polyuria or other Hematologic/Lymphatic Hematologic/Lymphatic: Reports easy bleeding and easy bruising; Denies anemia, lymphadenopathy or other Allergic/Immunologic Allergic/Immunologic: Denies rhinitis, hives, eczemia, asthma or other Vital Signs Vital Signs Vital Signs: 08/29/20 12:43 08/29/20 12:46 08/29/20 13:12 Temperature 98.1 F Temperature Source Temporal Pulse Rate 78 69 Respiratory Rate 15 15 Respiratory Effort Short of Breath Labored Blood Pressure 114/97 H 125/93 H Blood Pressure Mean 102 103 Pulse Ox 87 96 93 Oxygen Delivery Method Room Air Nasal Cannula Nasal Cannula Oxygen Flow Rate (L/min) 2 2 08/29/20 14:03 08/29/20 15:45 08/29/20 16:14 Temperature Temperature Source Pulse Rate 70 66 60 Respiratory Rate 18 17 13 Respiratory Effort Blood Pressure 115/81 H 92/53 L 114/85 H Blood Pressure Mean 92 66 94 Pulse Ox 95 98 98 Oxygen Delivery Method Nasal Cannula Nasal Cannula Nasal Cannula Oxygen Flow Rate (L/min) 2 2 2 08/29/20 16:15 08/29/20 16:26 Temperature 98.9 F Temperature Source Temporal Pulse Rate 64 Respiratory Rate 16 Respiratory Effort Blood Pressure 114/85 H Blood Pressure Mean 94 Pulse Ox 98 Oxygen Delivery Method Nasal Cannula Oxygen Flow Rate (L/min) 2 Weight Weight: 229 lb 8.019 oz Body Mass Index (BMI) 38.2 Physical Exam Const alert and oriented x3 Constitutional Narrative: Patient alert and oriented however seem to enter in and out of periods of sleep. HEENT normocephalic, head/scalp atraumatic, hearing grossly normal bilaterally and moist oral mucous membranes Eyes PERRL, EOMs intact bilaterally and conjunctivae normal Neck no lymphadenopathy, supple and no JVD Resp normal respiratory effort, no retractions, no use of accessory muscles and clear to auscultation bilaterally Cardio regular rate, regular rhythm, no murmurs and no JVD GI normal to inspection, nondistended, normoactive bowel sounds, soft to palpation, non-tender and non-distended Extremity Extremity Narrative: Bilateral bruising and redness of the knees and ankles. Skin Skin Narrative: Dried blood under Band-Aid on the right ankle. Neuro CN's II-XII intact bilaterally Psych affect normal Mood & Affect: anxious Radiology Impression Brain CT 08/29/20 13:25 IMPRESSION: No acute findings in the head/brain and unchanged when compared to 08/28/2020. Electronically Signed: Monster Barrios MD at 14:37 EDT , Service support , Femur X-Ray 08/29/20 14:25 IMPRESSION: 1. No acute fracture or dislocation of the right femur. 2. Intact right metallic hip arthroplasty. Electronically Signed: Monster Barrios MD at 15:29 EDT , Service support , Assessment & Plan Assessment/Plan (1) Nicotine dependence: (2) Cellulitis: (3) Essential (primary) hypertension: (4) Hyperlipidemia: QUALIFIERS: Hyperlipidemia type: mixed hyperlipidemia Qualified Code(s): E78.2 - Mixed hyperlipidemia (5) Generalized anxiety disorder with panic attacks: (6) Paroxysmal atrial fibrillation: (7) History of coronary artery stent placement: (8) NSTEMI (non-ST elevated myocardial infarction): (9) Atherosclerosis of [place] coronary artery of [place] heart without angina pectoris: (10) Adult failure to thrive: (11) History of atrial fibrillation: (12) Closed head injury: (13) Falls: (14) Avulsion fracture of ankle: (15) Neuropathy: PLAN: Patient is a 60-year-old female who presents to the ED at [facility] on 08/29/2020 with a chief complaint of multiple falls since 08/24/2020. Of note, patient was seen in the ED yesterday and had an extensive work-up, which was only significant for an avulsion fracture of the lateral malleolus of the right ankle. Patient endorses hitting her head multiple times in the last 24 hours. Endorses possible loss of consciousness, vision changes and headache. Past medical history is significant for HTN, CAD, hyperlipidemia, NSTEMI status post stent placement, paroxysmal atrial fibrillation, anxiety, depression, syncope and collapse. Of note, patient is on multiple sedating medications to include diphenhydramine, Lexapro, gabapentin, hydrocodone, tizanidine and trazodone. Patient will be admitted for medical observation to to [place] [id number]. 1) S/P Multiple falls. Patient reports a 5-day history of multiple falls on her back, on her knees and on her ankles. Patient endorses falling and hitting her head 3 times in the past [address] demonstrates no evidence of intracranial hemorrhage, ischemia or infarction, brain CT unchanged from 08/28/2020. Vital signs stable and patient is afebrile. Plan; admit to [facility], echocardiogram in a.m., orthostatic vitals ordered, continue hydrocodone?acetaminophen, CBC and BMP in a.m, PT/OT eval and treatment, case management consult bedside glucose ordered, fall precautions ordered, ankle brace being brought in by spouse to be applied to right ankle for avulsion fracture. 2) CAD s/p PCTA Continue metoprolol, aspirin, Plavix and statin. 3) Neuropathy Continue gabapentin. 4) HTN Continue lisinopril and hydrochlorothiazide. 5) Cellulitis of the right ankle On my exam, cellulitis appears much improved and demonstrates no swelling or tenderness. It is erythematous. Plan; continue doxycycline. 6) Tobacco abuse Smoking cessation encouraged. Nicotine patch ordered. 7) DM2 Not on any diabetes regimen at home. Calorie controlled diet ordered. Bedside glucose checks, basal and SSI ordered 8) Anxiety/depression Continue buspirone, Lexapro 9) Chronic back pain Continue tizanidine 10) Insomnia Continue trazodone DVT Prophylaxis - not indicated CODE STATUS: Full code Patient seen by Julian Jones PA-C, under the supervision of Dr. Landry. Documented by User: Dr. Azul Landry MD 08/29/20 19:03 HPI - General General Date of Admission: 08/29/20 Date of Service: 08/29/20 Chief Complaint: Frequent falls, pain. [facility] Medical History (Updated 08/29/20 @ 16:53 by Julian CHANG) LOVE (acute kidney injury) Atherosclerosis of [place] coronary artery of [place] heart without angina pec toris Essential (primary) hypertension Fracture tibia/fibula Generalized anxiety disorder with panic attacks Hyperlipidemia Low back pain Lump of breast, left Nicotine dependence NSTEMI (non-ST elevated myocardial infarction) (10/2016) Obesity (BMI 30-39.9) Osteoarthritis Paroxysmal atrial fibrillation Pneumonia Smoker Syncope and collapse UTI (urinary tract infection) Vision problems Home Medications diphenhydramine HCl 50 mg PO QHS 01/15/17 [History Last Taken 08/28/20] aspirin 81 mg PO DAILY@0800 10/29/17 [History Last Taken 08/29/20] gabapentin 800 mg tablet 800 mg PO 4X/DAY tab 02/04/18 [History Last Taken 08/29/20] acetaminophen 1,000 mg PO BID 03/18/18 [History Last Taken 08/29/20] tizanidine 4 mg PO TID 03/18/18 [History Last Taken 08/29/20] lisinopril 20 mg tablet 20 mg PO BID tab 05/09/20 [History Last Taken 08/29/20] rosuvastatin 40 mg tablet 40 mg PO DAILY #90 tab 05/17/20 [Rx Last Taken 08/28/20] escitalopram oxalate 20 mg tablet 20 mg PO DAILY #90 tab 06/20/20 [Rx Last Taken 08/29/20] albuterol sulfate 90 mcg/actuation aerosol inhaler 2 puff INHALATION Q6H PRN #18 gm 07/19/20 [Rx Last Taken 08/29/20] trazodone 100 mg tablet 200 mg PO QHS #60 tab 08/01/20 [Rx Last Taken 08/28/20] clopidogrel 75 mg tablet 75 mg PO DAILY #90 tab 08/17/20 [Rx Last Taken 08/29/20] buspirone 10 mg tablet 20 mg PO TID tab 08/20/20 [History Last Taken 08/29/20] doxycycline monohydrate 100 mg PO BID #20 cap 08/28/20 [Rx Last Taken 08/28/20] hydrochlorothiazide 12.5 mg PO QODAY 08/28/20 [History Last Taken 08/28/20] hydrocodone-acetaminophen 1 tab PO TID 08/29/20 [History Last Taken 08/29/20] metoprolol tartrate 25 mg PO BID 08/29/20 [History Last Taken 08/29/20] metoprolol tartrate 50 mg PO BID 08/29/20 [History Last Taken 08/29/20] Allergy/AdvReac Type Severity Reaction Status Date / Time adhesive AdvReac Other Verified 08/29/20 12:43 baclofen AdvReac LETHARGY Verified 08/29/20 12:43 Family History Father Hypertension Bowel disease Heart disease Kidney disease Mother Hypertension Arthritis Bowel disease Colon cancer Heart disease High cholesterol Grandmother Arthritis Breast cancer Brain tumor Lung cancer Grandfather Myocardial infarction Surgical History H/O laminectomy History of colonoscopy History of coronary artery stent placement (11/17/16) History of left heart catheterization History of splenectomy History of total right hip replacement Hx of bone graft (2014) S/P ORIF (open reduction internal fixation) fracture Social History Smoking Status: Current every day smoker tobacco type: cigarettes Tobacco: How many years used: 35 alcohol intake: current alcohol intake frequency: holidays/special occasions only Alcohol type: hard liquor substance use type: former substance user Date of last use: 20 years ago and marijuana caffeine: Yes Type: carbonated beverages and coffee what type of physical activity do you participate in: other details: Physical Therapy frequency: 3-4 times per week seatbelt use: always do you feel safe at home: Yes
[2020-08-29 16:58] LABS: Magnesium 2.5 mg/dL (1.6-2.6)
--- NOTE | 2020-08-29 21:05 | EKG12_ITS ---
Test Reason : ABNORMAL LABS Blood Pressure : / mmHG Vent. Rate : 073 BPM Atrial Rate : 073 BPM P-R Int : 134 ms QRS Dur : 080 ms QT Int : 436 ms P-R-T Axes : 060 035 001 degrees QTc Int : 480 ms Normal sinus rhythm Prolonged QT Abnormal ECG Confirmed by AMY MICHAEL, LEE ([id number]), editor department DEREK RAY ([id number]) on 09/04/2020 10:39:57 AM Referred By: ERNESTINA Confirmed By:LEE REYES MD
--- NOTE | 2020-08-29 21:14 | EKG12_ITS ---
Test Reason : ABNORMAL LABS Blood Pressure : / mmHG Vent. Rate : 073 BPM Atrial Rate : 073 BPM P-R Int : 134 ms QRS Dur : 080 ms QT Int : 440 ms P-R-T Axes : 050 026 -21 degrees QTc Int : 484 ms Somatic/Motion Artifact Normal sinus rhythm Nonspecific ST and T wave abnormality Abnormal ECG Confirmed by AMY MICHAEL, LEE ([id number]), dictionary editor DEREK RAY ([id number]) on 09/04/2020 10:42:45 AM Referred By: ERNESTINA Confirmed By:LEE REYES MD
[2020-08-29] MEDS: 0.9% Normal Saline 1,000 ML 100 ML IV (21:41)
--- NOTE | 2020-08-29 21:45 | NURSING ---
Transferred to [facility] at 2145hrs with this RN and ROUTE DRIVER SALESPERSON.
--- NOTE | 2020-08-29 21:53 | ECHOCS_ITS ---
Reason For Study: other, CAD, ELEVATED TROPONIN Procedure This was a 2D Doppler, Color Flow transthoracic echocardiogram. The study was technically difficult. Due to obesity. Contrast injection was performed. Exam performed portable in patient room. Left Ventricle Normal LV size. Left ventricular systolic function is normal. The estimated ejection fraction is 65 %. Stage 1 diastolic dysfunction. No regional wall motion abnormalities noted. Right Ventricle Normal RV size. Normal systolic function. Atria Normal left atrium. Normal right atrium. Mitral Valve Normal mitral valve. Tricuspid Valve Normal tricuspid valve. Mild to moderate (1-2+) tricuspid valve insufficiency. Pulmonary artery systolic pressure is 40 mmHg. Aortic Valve The aortic valve is not well visualized. Pulmonic Valve Normal pulmonic valve. Great Vessels Normal aortic root. The pulmonary artery is normal size. Normal inferior vena cava. Pericardium/Pleural No pericardial effusion. Medication Diluted definity 3.0ml given slow IV push to enhance endocardial definition. MMode/2D Measurements & Calculations LVIDd: 5.1 cm IVSd: 1.1 cm Ao root diam: 3.0 cm LVIDs: 3.6 cm LVPWd: 1.0 cm RVDd: 3.5 cm FS: 29.1 % LA A4 area: 20.1 cm2 LA dimension(2D): 4.2 cm RA A4 area: 16.8 cm2 Time Measurements MV dec time: 0.22 sec Doppler Measurements & Calculations MV E max luiz: 57.9 cm/sec Lat Peak E' Luiz: 7.0 cm/sec Med Peak E' Luiz: 7.3 cm/sec MV A max luiz: 66.9 cm/sec E/E' lat: 8.2 E/E' med: 7.9 MV E/A: 0.87 Ao V2 max: 113.5 cm/sec LV V1 max: 88.1 cm/sec PA V2 max: 48.8 cm/sec Ao max P.2 mmHg LV V1 max P.1 mmHg TR max luiz: 305.1 cm/sec TR max P.2 mmHg ECHO/Echo Complete W/ Contrast Interpretation Summary Normal LV size. Left ventricular systolic function is normal. The estimated ejection fraction is 65 %. Stage 1 diastolic dysfunction. Contrast injection was performed. Ordering Physician: Liv Godinez Referring Physician: Ana Oates Performed By: Rosangela Hernandez, THIAGO, RVT
[2020-08-29] MEDS: Lisinopril 20 MG Tablet PO (22:17)
[2020-08-29] MEDS: Gabapentin 800 MG Tablet PO (22:17)
[2020-08-29] MEDS: Atorvastatin Calcium 80 MG Tablet PO (22:18)
[2020-08-29] MEDS: tiZANidine HCl 2 MG Tablet 4 MG PO (22:19)
[2020-08-29] MEDS: Doxycycline 100 MG CAPSULE PO (22:19)
[2020-08-29] MEDS: Metoprolol Tartrate 50 MG Tablet PO (22:19)
[2020-08-29] MEDS: busPIRone 5 MG Tablet 20 MG PO (22:19)
[2020-08-29] MEDS: Metoprolol Tartrate 25 MG Tablet PO (22:20)
[2020-08-29 23:06] LABS: Bedside Glucose 100 mg/dL (70-110)
[2020-08-30] VITALS (26 sets, daily range): BP systolic 94–161; BP diastolic 58–110; PULSE 63–84; RESP 13–25; TEMP 36.3–36.6; O2SAT 77–100
[2020-08-30] MEDS: DiphenhydrAMINE 25 MG Capsule 50 MG PO (00:07)
[2020-08-30] MEDS: traZODone 100 MG Tablet 200 MG PO (00:07)
[2020-08-30 02:29] LABS: Absolute Neutrophil Count 4.7 X10^3/uL (2.0-7.7); Basophil# 0.03 X10^3/uL; Basophil% 0.4 % (0-1); Eosinophil# 0.04 X10^3/uL; Eosinophils% 0.6 % (0-5); Hematocrit 38.2 % (37-47); Hemoglobin 11.7 g/dL (12.0-15.0); Lymphocyte % 27.5 % (19-41); Mean Corp Hgb Conc 30.6 g/dL (32-36); Mean Corpuscular Hgb 28.2 pg (27.0-32.0); Mean Platelet Vol. 9.8 fl (6.2-12.0); Monocyte# 0.44 X10^3/uL; Monocyte% 6.1 % (0-10); NRBC Flagged by Analyzer 3.2 % (0-5); Neutrophil # 4.67 X10^3/uL (2.7-7.7); Neutrophil % 64.2 % (47-70); Platelet Count 244 K/mm3 (150-450); RBC Distribution Width CV 17.6 % (11.6-14.6); RBC Distribution Width SD 58.2 fl (35.1-43.9); Red Blood Count 4.15 M/mm3 (4.2-5.4); White Blood Count 7.3 K/mm3 (4.4-11.0)
[2020-08-30] MEDS: 0.9% Normal Saline 1,000 ML 100 ML IV ×2 (03:49→13:54)
[2020-08-30 04:01] LABS: ALB/GLOB Ratio 0.6 RATIO (0.9-2.4); Alanine Aminotransfer ALT/SGPT 859 U/L (13-56); Albumin, Serum 2.5 g/dL (3.2-5.0); Alkaline Phosphatase 82 U/L (45-117); Anion Gap 7 (5-15); BUN 50 mg/dL (7-18); Calcium,Total 7.9 mg/dL (8.5-10.1); Chloride 99 mmol/L (98-107); Creatinine, Serum 3.13 mg/dL (0.55-1.02); EST Glomerular Filtration Rate 16 mL/min (>60); Est Glom Filt Rate - Afr Amer 20 mL/min (>60); Estimated Creatinine Clearance 17.41 ml/min; Globulin 3.9 g/dL (2.2-4.2); Glucose 107 mg/dL (74-106); Potassium 5.2 mmol/L (3.5-5.1); Protein, Total 6.4 g/dL (6.4-8.2); Sodium Level 133 mmol/L (136-145)
[2020-08-30 04:02] LABS: AST(SGOT) 1197 U/L (15-37)
[2020-08-30] MEDS: busPIRone 5 MG Tablet 20 MG PO ×2 (06:16→23:21)
[2020-08-30] MEDS: HYDROcodone Bitartrate/Apap 5/325 Tablet PO (06:17)
[2020-08-30] MEDS: tiZANidine HCl 2 MG Tablet 4 MG PO (06:17)
--- NOTE | 2020-08-30 06:32 | NURSING ---
This RN attempted to obtain orthostatic VS. Obtained lying and sitting BP, but when helping patient stand, patient stated they were unable to stand long enough d/t weakness to get a BP. Patient denied lightheaded/dizziness.
[2020-08-30 06:45] LABS: Bedside Glucose 107 mg/dL (70-110)
[2020-08-30] MEDS: Aspirin E.C. 81 MG Tablet PO (07:47)
[2020-08-30] MEDS: Gabapentin 800 MG Tablet PO (09:07)
[2020-08-30] MEDS: Doxycycline 100 MG CAPSULE PO ×2 (09:07→23:22)
[2020-08-30] MEDS: Lisinopril 20 MG Tablet PO (09:07)
[2020-08-30] MEDS: hydroCHLOROthiazide 12.5mg 12.5 MG PO (09:07)
[2020-08-30] MEDS: Escitalopram Oxalate 20 MG Tablet PO (09:07)
[2020-08-30] MEDS: Metoprolol Tartrate 25 MG Tablet PO ×2 (09:08→23:23)
[2020-08-30] MEDS: Clopidogrel Bisulfate 75 MG Tablet PO (09:08)
[2020-08-30] MEDS: Metoprolol Tartrate 50 MG Tablet PO ×2 (09:08→23:21)
[2020-08-30] MEDS: Albuterol 2.5 MG/3 ML VIAL.NEB. INHALATION (09:49)
[2020-08-30 11:00] LABS: Bedside Glucose 113 mg/dL (70-110)
[2020-08-30 11:35] LABS: Allen Test Positive; Base Excess 2 mmol/L (-2 to +2); Bicarbonate 29.9 mmol/L (22-26); Blood Gas Specimen Type ART; O2 Delivery Device Cannula; PO2 66 mmHG (75-100); SITE L Radial; SO2 87 % (95-99); Total Carbon Dioxide 32 mmol/L; pCO2 77.3 mmHg (35-45)
--- NOTE | 2020-08-30 11:59 | CPS ---
critical values noted, Rn notified by DIVING FISHER Enrique Henao
--- NOTE | 2020-08-30 13:05 | PCM.PN.HOSP ---
Documented by User: Fadumo Edwards FIELD COUNSEL, FIELD COUNSEL-C 08/30/20 13:43 Subjective Subjective Patient seen and examined. Reports ongoing weakness. Upper extremities tremors. Later this afternoon, nurse notified provider that patient was more lethargic. Patient examined at that time and was easily arousable however drowsy and falling asleep during conversation. Objective Data Objective Data Vital Signs: Vital Signs Temp Pulse Resp BP Pulse Ox 97.7 F L 63 18 152/110 H 98 08/30/20 09:03 08/30/20 11:50 08/30/20 11:50 08/30/20 09:03 08/30/20 12:06 Oxygen Flow Rate (L/min) 4 Oxygen Delivery Method Bi-pap Weight: 228 lb 4.8 oz Body Mass Index (BMI) 38.2 Orthostatic Vital Signs Start: 08/30/20 00:31 Freq: q24h Status: Active Protocol: Activity Type Activity Date Activity User E-Sign Co-Sign Detail Recorded Client Recorded Date Recorded By Document 08/30/20 06:04 NIRANJAN [id number] 08/30/20 06:12 MY 08/30/20 06:04 Orthostatic Vitals Sitting -Blood Pressure (90/60-120/80) 109/62 -Extremity Use Left Arm -Pulse Rate (60-100) 80 Lying -Blood Pressure (90/60-120/80) 99/58 L -Extremity Use Left Arm -Pulse Rate (60-100) 84 Intake & Output: Intake and Output for Last 24 Hours 08/28/20 08/29/20 08/30/20 23:59 23:59 23:59 Intake Total 500 / 560 1180 / 1180 Output Total 0 / 0 Balance 500 / 560 1180 / 1180 Lab / Micro Data Result Diagrams: 08/30/20 02:20 08/30/20 02:20 Labs: Laboratory Results - last 24 hr 08/29/20 08/29/20 08/29/20 13:00 20:15 22:57 WBC RBC Hgb Hct MCV MCH MCHC RDW Std Deviation RDW Coeff of Aleksandar Plt Count MPV Immature Gran % (Auto) Neut % (Auto) Lymph % (Auto) [place] % (Auto) Eos % (Auto) Baso % (Auto) Absolute Neuts (auto) Absolute Lymphs (auto) Nucleated RBC % Sodium Potassium Chloride Carbon Dioxide Anion Gap BUN Creatinine Estim Creat Clear Calc Est GFR (MDRD) Af Amer Est GFR (MDRD) Non-Af BUN/Creatinine Ratio Glucose Calcium Magnesium 2.5 Total Bilirubin AST ALT Alkaline Phosphatase Troponin I 1.960 H* Total Protein Albumin Globulin Albumin/Globulin Ratio POC Glucose 100 08/29/20 08/30/20 08/30/20 23:14 02:20 02:20 WBC 7.3 RBC 4.15 L Hgb 11.7 L Hct 38.2 MCV 92.0 MCH 28.2 MCHC 30.6 L RDW Std Deviation 58.2 H RDW Coeff of Aleksandar 17.6 H Plt Count 244 MPV 9.8 Immature Gran % (Auto) 1.200 H Neut % (Auto) 64.2 Lymph % (Auto) 27.5 [place] % (Auto) 6.1 Eos % (Auto) 0.6 Baso % (Auto) 0.4 Absolute Neuts (auto) 4.7 Absolute Lymphs (auto) 2.00 Nucleated RBC % 3.2 Sodium 133 L Potassium 5.2 H Chloride 99 Carbon Dioxide 27.0 Anion Gap 7 BUN 50 H Creatinine 3.13 H Estim Creat Clear Calc 17.41 Est GFR (MDRD) Af Amer 20 L Est GFR (MDRD) Non-Af 16 L BUN/Creatinine Ratio 16.0 Glucose 107 H Calcium 7.9 L Magnesium Total Bilirubin 0.40 AST 1197 H ALT 859 H Alkaline Phosphatase 82 Troponin I 1.560 H* Total Protein 6.4 Albumin 2.5 L Globulin 3.9 Albumin/Globulin Ratio 0.6 L POC Glucose 08/30/20 08/30/20 08/30/20 02:20 06:40 10:55 WBC RBC Hgb Hct MCV MCH MCHC RDW Std Deviation RDW Coeff of Aleksandar Plt Count MPV Immature Gran % (Auto) Neut % (Auto) Lymph % (Auto) [place] % (Auto) Eos % (Auto) Baso % (Auto) Absolute Neuts (auto) Absolute Lymphs (auto) Nucleated RBC % Sodium Potassium Chloride Carbon Dioxide Anion Gap BUN Creatinine Estim Creat Clear Calc Est GFR (MDRD) Af Amer Est GFR (MDRD) Non-Af BUN/Creatinine Ratio Glucose Calcium Magnesium Total Bilirubin AST ALT Alkaline Phosphatase Troponin I 1.520 H* Total Protein Albumin Globulin Albumin/Globulin Ratio POC Glucose 107 113 H ABG Data ABG results: ABG 08/30/20 11:29 Specimen Type ART Sample Site L Radial pH 7.20 L Bicarbonate Actual 29.9 H Total CO2 32 Base Excess 2 O2 Saturation 87 L ABG pCO2 77.3 H* ABG pO2 66 L Simon Test Positive O2 Delivery Device Cannula Liter Flow 2.0 Crit Call To/Read Back Yes Radiography Diagnostic Testing: Radiology Impression Brain CT 08/29/20 13:25 IMPRESSION: No acute findings in the head/brain and unchanged when compared to 08/28/2020. Electronically Signed: Monster Barrios MD at 14:37 EDT , Service support , Femur X-Ray 08/29/20 14:25 IMPRESSION: 1. No acute fracture or dislocation of the right femur. 2. Intact right metallic hip arthroplasty. Electronically Signed: Monster Barrios MD at 15:29 EDT , Service support , Echocardiogram 08/29/20 21:53 Interpretation Summary Normal LV size. Left ventricular systolic function is normal. The estimated ejection fraction is 65 %. Stage 1 diastolic dysfunction. Contrast injection was performed. Ordering Physician: Liv Godinez Referring Physician: Ana Oates Performed By: Rosangela Hernandez, THIAGO, RVT Physical Exam Const alert, oriented x3 and no apparent distress Orientation / Consciousness: awake, oriented to person, oriented to place and oriented to time HEENT normocephalic and moist oral mucous membranes Eyes PERRL, EOMs intact bilaterally and conjunctivae normal Neck no lymphadenopathy Resp clear to auscultation bilaterally Auscultation: diminished lung sounds Cardio regular rate, regular rhythm and no murmurs Peripheral Pulses: pulses 2+ throughout GI normal to inspection, nondistended, normoactive bowel sounds, non-tender and non-distended Extremity normal to inspection Skin no rashes or lesions noted Lesions: no lesions Rashes: no rashes Trauma: no lacerations or abrasions Neuro CN's II-XII intact bilaterally, no focal motor deficits, no sensory deficits noted and deep tendon reflexes 2+ bilaterally Psych mental status grossly normal and affect normal Assessment & Plan Assessment/Plan (1) Falls: PLAN: 1. Acute encephalopathy secondary to respiratory acidosis, hypercapnia-chest x-ray admission without acute process. ABGs completed which demonstrated a pH of 7.2, bicarb 29, PCO2 77, O2 saturation 87%. BiPAP placed. Will repeat ABGs following therapy. Suspect secondary to untreated ALEN. Will consult pulmonary medicine as patient will need ongoing outpatient evaluation and management. Hold sedating regimen including trazodone, Zanaflex, Benadryl and gabapentin. 2. Recurrent falls with reported possible syncope-suspect secondary to #1. Unable to obtain orthostatic vitals due to weakness. Brain CT unremarkable. Echocardiogram demonstrates an EF of 65%, stage I diastolic dysfunction. Troponin negative. PT/OT. Case management consult. 3. Recent right lower extremity ankle cellulitis-appears resolved, continue previously prescribed doxycycline. 4. Chronic COPD with chronic hypoxic respiratory failure-continue aerosol regimen. Continue supplement oxygen to maintain O2 above 90%. 5. Upper extremity tremors-follows with neurology as outpatient. Suspected physiologic tremor. 6. Paroxysmal atrial fibrillation-on metoprolol. Not on oral anticoagulation. 7. CAD with history of PCI-on aspirin, statin, Plavix, metoprolol. 8. Hypertension-stable, continue metoprolol, lisinopril, hydrochlorothiazide. 9. Hyperlipidemia-continue statin. 10. Anxiety/depression-continue buspirone, escitalopram. 11. Type 2 diabetes [id number] with sliding scale insulin. Continue gabapentin regimen. Not on hyperglycemic regimen. Hemoglobin A1c in April 2020 6.1%. 12. Tobacco dependence-encouraged cessation. 13. Obesity- encouraged diet and lifestyle modifications. DVT prophylaxis- Lovenox sc This patient was seen by SUKHWINDER Arellano under the supervision of Dr. Santamaria. Documented by User: Dr. Fredy Santamaria MD 08/30/20 13:50 Objective Data Lab / Micro Data Result Diagrams: 08/30/20 02:20 08/30/20 02:20 Assessment & Plan Addt'l Comments This patient was seen in conjunction with SUKHWINDER Arellano . I have independently interviewed and examined the patient and reviewed pertinent historical, laboratory, and other data. Please refer to SUKHWINDER Arellano note for details of this patient's presentation, findings, and recommendations. I have reviewed SUKHWINDER Arellano note and concur with documented findings. In brief, patient is a 60-year-old female admitted with falls. An assessment of acute encephalopathy made admitted to a monitored bed. Patient was also found to have elevated troponin on admission Physical Examination: GENERAL: Lethargic but arousable HEENT: Atraumatic; EYES; Anicteric, Normal Conjunctiva NECK; supple, normal thyroid, RESPIRATORY: Diminished to auscultation CARDIOVASCULAR: Regular S1 S2, GI: soft, normoactive bowel sounds, : No Renal angle tenderness; EXTREMITIES: No edema, no clubbing, MUSCULOSKELETAL: no muscle waisting NEURO: Awake; no lateralizing signs. SKIN: Plethoric PSYCH; Flat affect Assessment: 1. Acute metabolic encephalopathy 2. Acute hypercapnic respiratory failure 3. Acute respiratory acidosis 4. Acute non-STEMI 5. Chronic hypoxic respiratory failure secondary to COPD 6. Morbid obesity with BMI of 38 7. Right lower extremity cellulitis 8. Paroxysmal A. fib 9. Coronary artery disease with previous PCI 10. Essential hypertension 11. Dyslipidemia 12. Diabetes mellitus type 2 13. Depression with anxiety 14. DVT prophylaxis Recommendations: 1. I have discussed the results of my overview and impressions with the patient 2. Options for management were reviewed Charges/Coding Visit Charges Inpatient E&M: 05213 Subs Hosp L3
[2020-08-30 13:59] LABS: CPK Total, Creatine Kinase 263 U/L (26-192)
--- NOTE | 2020-08-30 14:13 | CASEMGMT ---
[facility] is recommended is as follows: [facility], [place], [place], [facility], [facility], [facility], [place], [facility] ([facility]), and . Josiane BSN RN CM
[2020-08-30 15:11] LABS: Allen Test Positive; Base Excess 1 mmol/L (-2 to +2); Bicarbonate 28.9 mmol/L (22-26); Blood Gas Specimen Type ART; Comment 16; FI02 45; O2 Delivery Device BiPAP; PO2 80 mmHG (75-100); SITE R Brach; SO2 92 % (95-99); Total Carbon Dioxide 31 mmol/L; pCO2 74.6 mmHg (35-45)
--- NOTE | 2020-08-30 15:12 | US_ITS ---
INDICATION: Transaminitis ....... EXAMINATION: US Abdomen Limited (quadrant) TECHNIQUE: Rueda-scale and color Doppler imaging was performed of the right upper abdominal quadrant. COMPARISON: None. Findings: The liver is enlarged measuring 20.5 cm. It is Homogenous and normal in echogenicity and echotexture. There is no evidence of contour nodularity. No focal hepatic mass is identified. The main portal vein is normal in size and patent demonstrating hepatopetal flow. The gallbladder is contracted with mild diffuse wall thickening consistent with the post prandial state, limiting evaluation for stones, although none are seen. There is no pericholecystic fluid. Sonographic Gonzalez''s tenderness is not appreciated. There is no evidence of intrahepatic biliary ductal dilatation. The CBD is nondilated measuring 4 mm at the level of the levi hepatis. The visualized portions of the pancreas are unremarkable without evidence of focal or diffuse enlargement. Specifically, the tail is obscured by overlying bowel gas. Right kidney measures 12 cm in length. It is normal in echogenicity. No focal renal lesion is identified. There is no evidence of hydronephrosis. US/Liver IMPRESSION: Hepatomegaly with sonographically normal appearing liver parenchyma. No evidence of contour nodularity. No evidence of focal hepatic mass. Remainder of the exam is otherwise unremarkable. Electronically Signed: Feliz Martinez MD at 18:59 EDT Tel , Service support ,
--- NOTE | 2020-08-30 16:33 | NURSING ---
This RN called and gave report to MAMADOU Lepe in ICU.
--- NOTE | 2020-08-30 16:46 | CPS ---
Critical values noted and VENDING SUPERVISOR notified by SARTHAK Henao
[2020-08-30 17:06] LABS: Bedside Glucose 101 mg/dL (70-110)
--- NOTE | 2020-08-30 17:09 | NURSING ---
This RN called the pt's sister, Fidelina upon the pt's request. This RN left a voicemail for Fidelina to let her know that the pt was being moved to ICU for closer monitoring and left a call back number if she has questions.
[2020-08-30] MEDS: Heparin Injection (Vial) 5,000 UNIT/ML VIAL 5000 UNIT SC (23:22)
[2020-08-30] MEDS: Atorvastatin Calcium 80 MG Tablet PO (23:22)
[2020-08-30] MEDS: 0.9% Normal Saline 1,000 ML 125 ML IV (23:23)
[2020-08-31] VITALS (25 sets, daily range): BP systolic 139–196; BP diastolic 76–110; PULSE 72–86; RESP 14–25; TEMP 36.6–36.8; O2SAT 92–99
[2020-08-31 00:46] LABS: Bedside Glucose 95 mg/dL (70-110)
[2020-08-31] MEDS: Morphine 4 MG/ML Syringe IV (03:46)
[2020-08-31] MEDS: 0.9% Saline Lock 10 ML Syringe IV (04:01)
[2020-08-31 05:01] LABS: Absolute Lymphocyte Count 0.84 X10^3/uL (0.83-4.51); Basophil# 0.02 X10^3/uL; Basophil% 0.3 % (0-1); Eosinophil# 0.01 X10^3/uL; Eosinophils% 0.2 % (0-5); Hematocrit 38.4 % (37-47); Hemoglobin 12.2 g/dL (12.0-15.0); Lymphocyte # 0.84 X10^3/ul (0.83-4.51); Lymphocyte % 13.2 % (19-41); Mean Corp Hgb Conc 31.8 g/dL (32-36); Mean Corpuscular Hgb 28.4 pg (27.0-32.0); Mean Corpuscular Volume 89.3 fL (81-99); Mean Platelet Vol. 9.8 fl (6.2-12.0); Monocyte# 0.42 X10^3/uL; Monocyte% 6.6 % (0-10); NRBC Flagged by Analyzer 1.3 % (0-5); Neutrophil % 78.8 % (47-70); Platelet Count 208 K/mm3 (150-450); RBC Distribution Width CV 17.2 % (11.6-14.6); RBC Distribution Width SD 54.6 fl (35.1-43.9); White Blood Count 6.4 K/mm3 (4.4-11.0)
--- NOTE | 2020-08-31 05:49 | CON.PCM.CC_ITS ---
Assessment & Plan Assessment/Plan (1) Acute respiratory failure: PLAN: RECOMMENDATIONS: 1. Avoid sedating medications as much as possible. 2. Recommend continuation of empiric AVAPS with naps and nightly. 3. Stop continuous supplemental IV fluids. 4. Pain management per hospitalist. 5. Continue nicotine replacement therapy. 6. Continue as needed bronchodilator therapy. 7. The patient ideally would benefit from outpatient pulmonary follow-up so that baseline PFTs can be obtained and diagnostic polysomnogram completed. IMPRESSIONS: 1. Acute combined respiratory failure Appears to be secondary to acute CO2 retention in the setting of polypharmacy. The patient, at her baseline, is on a multitude of different sedating medications. In addition, she does have an extensive smoking history and is at high risk for alveolar hypoventilation/sleep apnea. Although the patient did require transfer to the ICU, she did respond favorably to the use of noninvasive positive pressure ventilatory support. She is currently mentating appropriately this morning. I would recommend that her sedating medication regimen be dose ad justed. I also strongly recommended the continued use of AVAPS with naps and nightly. Ideally, the patient should follow up in the pulmonary medicine clinic after discharge for a formal sleep apnea evaluation. 2. Metabolic encephalopathy Secondary to acute CO2 retention in the setting of polypharmacy. This has resolved as of this morning with the use of noninvasive positive pressure ventilatory support. Recommend avoiding sedating medications in the future. 3. Unspecified tremors with recurrent falls Unclear precipitating etiology for the patient's baseline tremors. Will defer to hospitalist with regard to need for further work-up. 4. Chronic tobacco dependency/questionable obstructive lung disease I personally spent 4 minutes discussing the deleterious effects of continued tobacco use with the patient, including modalities which could be utilized to achieve a smoke-free lifestyle. I would recommend that the patient follow-up after discharge from the pulmonary medicine clinic so that baseline pulmonary function studies can be obtained. Continue nicotine replacement therapy. 5. High risk for obstructive sleep apnea As noted above, the patient would benefit from formal outpatient evaluation for sleep apnea with a diagnostic polysomnogram, following discharge from the hospital. In the interim, I would recommend that AVAPS be continued with naps and nightly, while admitted to the hospital. 6. Paroxysmal atrial fibrillation/coronary artery disea se/hypertension/hyperlipidemia/depression/anxiety Complicates care, management, recovery and prognosis. Continue home medications as indicated. This note was generated with [employer] dictation software. It may contain incorrect words, spelling, and punctuation that were not noted in checking the note before signing. HPI Consult Data Date of Consult: 08/31/20 HPI Narrative Reason for Consultation: Acute hypoxemic and hypercarbic respiratory failure HPI Narrative: The patient is a 60-year-old female, with a history as outlined below, who presented to the emergency department on August 29 with tremors and frequent falls. The patient reported that beginning on this past Thursday she developed tremors and began to fall. The patient had been evaluated in the emergency department on August 28 under similar circumstances. Ankle x-ray performed at that time revealed an acute avulsion fracture of the undersurface of the lateral malleolus and soft tissue swelling. The patient was splinted and due to erythema noted on her right lateral ankle was treated with antibiotics for possible cellulitis. She was subsequently discharged home. The patient is currently followed by Dr. Fitzpatrick in the pain management clinic. She is currently prescribed Waldo 7.5 three times a day as needed for pain. The patient's medical history is also significant for obesity, depression, anxiety and chronic tobacco dependency. On presentation to the emergency department, the patient was noted to be afebrile hemodynamically stable. Initial laboratory evaluation revealed no evidence of a leukocytosis. Chemistry profile revealed a sodium of 133, potassium of 5.2, BUN of 50 and creatinine of 3.13. AST and ALT were increased to 1197 and 859, respectively. Head CT revealed no acute intracranial pathology. Femur x-ray revealed no acute fracture or dislocation of the right femur. The patient was subsequently admitted to the hospital for further work- up of her frequent falls with associated dizziness and lightheadedness. On August 30, the patient was noted to be more lethargic and less responsive than previous. An arterial blood gas was obtained which revealed a pH of 7.2 with a corresponding PCO2 of 77 and PO2 of 66. It should be noted that the patient was given a multitude of sedating medications over the course of the day on August 30. Due to the development of acute encephalopathy related to CO2 retention, the patient was placed on noninvasive positive pressure ventilatory support and admitted to the medical intensive care unit for further management. The patient was maintained on AVAPS overnight with improved mentation noted this morning. [facility] Medical History (Updated 08/31/20 @ 05:[address] Ryne Kessler, DO) LOVE (acute kidney injury) Atherosclerosis of [place] coronary artery of [place] heart without angina pectoris Essential (primary) hypertension Fracture tibia/fibula Generalized anxiety disorder with panic attacks Hyperlipidemia Low back pain Lump of breast, left Nicotine dependence NSTEMI (non-ST elevated myocardial infarction) (10/2016) Obesity (BMI 30-39.9) Osteoarthritis Paroxysmal atrial fibrillation Pneumonia Smoker Syncope and collapse UTI (urinary tract infection) Vision problems Home Medications diphenhydramine HCl 50 mg PO QHS 01/15/17 [History Last Taken 08/28/20] aspirin 81 mg PO DAILY@0800 10/29/17 [History Last Taken 08/29/20] gabapentin 800 mg tablet 800 mg PO 4X/DAY tab 02/04/18 [History Last Taken 08/29/20] acetaminophen 1,000 mg PO BID 03/18/18 [History Last Taken 08/29/20] tizanidine 4 mg PO TID 03/18/18 [History Last Taken 08/29/20] lisinopril 20 mg tablet 20 mg PO BID tab 05/09/20 [History Last Taken 08/29/20] rosuvastatin 40 mg tablet 40 mg PO DAILY #90 tab 05/17/20 [Rx Last Taken 08/28/20] escitalopram oxalate 20 mg tablet 20 mg PO DAILY #90 tab 06/20/20 [Rx Last Taken 08/29/20] albuterol sulfate 90 mcg/actuation aerosol inhaler 2 puff INHALATION Q6H PRN #18 gm 07/19/20 [Rx Last Taken 08/29/20] trazodone 100 mg tablet 200 mg PO QHS #60 tab 08/01/20 [Rx Last Taken 08/28/20] clopidogrel 75 mg tablet 75 mg PO DAILY #90 tab 08/17/20 [Rx Last Taken 05/20] buspirone 10 mg tablet 20 mg PO TID tab 08/20/20 [History Last Taken 08/29/20] doxycycline monohydrate 100 mg PO BID #20 cap 08/28/20 [Rx Last Taken 08/28/20] hydrochlorothiazide 12.5 mg PO QODAY 08/28/20 [History Last Taken 08/28/20] hydrocodone-acetaminophen 1 tab PO TID 08/29/20 [History Last Taken 08/29/20] metoprolol tartrate 25 mg PO BID 08/29/20 [History Last Taken 08/29/20] metoprolol tartrate 50 mg PO BID 08/29/20 [History Last Taken 08/29/20] Allergy/AdvReac Type Severity Reaction Status Date / Time adhesive AdvReac Other Verified 08/29/20 12:43 baclofen AdvReac LETHARGY Verified 08/29/20 12:43 Family History Father Hypertension Bowel disease Heart disease Kidney disease Mother Hypertension Arthritis Bowel disease Colon cancer Heart disease High cholesterol Grandmother Arthritis Breast cancer Brain tumor Lung cancer Grandfather Myocardial infarction Surgical History H/O laminectomy History of colonoscopy History of coronary artery stent placement (11/17/16) History of left heart catheterization History of splenectomy History of total right hip replacement Hx of bone graft (2014) S/P ORIF (open reduction internal fixation) fracture Social History Smoking Status: Current every day smoker tobacco type: cigarettes Tobacco: How many years used: 35 alcohol intake: current alcohol intake frequency: holidays/special occasions only Alcohol type: hard liquor substance use type: former substance user Date of last use: 20 years ago and marijuana caffeine: Yes Type: carbonated beverages and coffee what type of physical activity do you participate in: other details: Physical Therapy frequency: 3-4 times per week seatbelt use: always do you feel safe at home: Yes ROS Constitutional Constitutional: Denies chills, fatigue or fever(s) Eyes Eyes: Denies blurry vision or change in vision ENT HEENT: Reports dizziness Cardiovascular Cardiovascular: Reports dizziness and lightheadedness Respiratory/Chest Respiratory/Chest: Reports dyspnea Gastrointestinal Gastrointestinal: Denies abdominal pain, diarrhea, nausea or vomiting Genitourinary Genitourinary: Denies difficulty urinating Musculoskeletal Musculoskeletal: Reports back pain Integumentary Integumentary: Denies skin ulcer Neurologic Neurologic: Reports confusion and syncope Psychiatric Psychiatric: Reports anxiety and depression Endocrine Endocrinology: Reports fatigue Hematologic/Lymphatic Hematologic/Lymphatic: Denies easy bleeding or easy bruising Physical Exam Const Constitutional Narrative: The patient is currently alert and interactive. She was subsequently removed from AVAPS. During the course of her interaction with me, the patient still seems somewhat confused, often times repeating herself. HEENT normocephalic and head/scalp atraumatic Eyes PERRL, EOMs intact bilaterally and conjunctivae normal Neck supple Neck Narrative: Large neck circumference with redundant soft tissue General: trachea midline Resp normal respiratory effort Auscultation: diminished lung sounds; Negative for rales, rhonchi or wheezes Cardio regular rate and regular rhythm GI normal to inspection, nondistended, normoactive bowel sounds Extremity Extremity Narrative: Scabbing noted over lateral aspect of right ankle with brui sing and erythema. Neuro CN's II-XII intact bilaterally, moves all extremities and no focal motor deficits Psych Mood & Affect: anxious Lab / Micro Data Result Diagrams: 08/31/20 04:50 08/31/20 05:15 Labs: Laboratory Results - last 24 hr 08/30/20 08/30/20 08/30/20 02:20 06:40 10:55 WBC RBC Hgb Hct MCV MCH MCHC RDW Std Deviation RDW Coeff of Aleksandar Plt Count MPV Immature Gran % (Auto) Neut % (Auto) Lymph % (Auto) [place] % (Auto) Eos % (Auto) Baso % (Auto) Absolute Neuts (auto) Absolute Lymphs (auto) Nucleated RBC % Sodium Potassium Chloride Carbon Dioxide Anion Gap BUN Creatinine Estim Creat Clear Calc Est GFR (MDRD) Af Amer Est GFR (MDRD) Non-Af BUN/Creatinine Ratio Glucose Calcium Total Bilirubin AST ALT Alkaline Phosphatase Total Creatine Kinase 263 H Total Protein Albumin Globulin Albumin/Globulin Ratio COVID-19 (JOSEF) POC Glucose 107 113 H 08/30/20 08/30/20 08/30/20 14:32 16:57 23:27 WBC RBC Hgb Hct MCV MCH MCHC RDW Std Deviation RDW Coeff of Aleksandar Plt Count MPV Immature Gran % (Auto) Neut % (Auto) Lymph % (Auto) [place] % (Auto) Eos % (Auto) Baso % (Auto) Absolute Neuts (auto) Absolute Lymphs (auto) Nucleated RBC % Sodium Potassium Chloride Carbon Dioxide Anion Gap BUN Creatinine Estim Creat Clear Calc Est GFR (MDRD) Af Amer Est GFR (MDRD) Non-Af BUN/Creatinine Ratio Glucose Calcium Total Bilirubin AST ALT Alkaline Phosphatase Total Creatine Kinase Total Protein Albumin Globulin Albumin/Globulin Ratio COVID-19 (JOSEF) Not Detected POC Glucose 101 95 08/31/20 08/31/20 04:50 04:50 WBC 6.4 RBC 4.30 Hgb 12.2 Hct 38.4 MCV 89.3 MCH 28.4 MCHC 31.8 L RDW Std Deviation 54.6 H RDW Coeff of Aleksandar 17.2 H Plt Count 208 MPV 9.8 Immature Gran % (Auto) 0.900 Neut % (Auto) 78.8 H Lymph % (Auto) 13.2 L [place] % (Auto) 6.6 Eos % (Auto) 0.2 Baso % (Auto) 0.3 Absolute Neuts (auto) 5.0 Absolute Lymphs (auto) 0.84 Nucleated RBC % 1.3 Sodium Cancelled Potassium Cancelled Chloride Cancelled Carbon Dioxide Cancelled Anion Gap Cancelled BUN Cancelled Creatinine Cancelled Estim Creat Clear Calc Cancelled Est GFR (MDRD) Af Amer Cancelled Est GFR (MDRD) Non-Af Cancelled BUN/Creatinine Ratio Cancelled Glucose Cancelled Calcium Cancelled Total Bilirubin Cancelled AST Cancelled ALT Cancelled Alkaline Phosphatase Cancelled Total Creatine Kinase Total Protein Cancelled Albumin Cancelled Globulin Cancelled Albumin/Globulin Ratio Cancelled COVID-19 (JOSEF) POC Glucose ABG Data ABG results: ABG 08/30/20 08/30/20 11:29 15:07 Specimen Type ART ART Sample Site L Radial R Brach pH 7.20 L 7.20 L Bicarbonate Actual 29.9 H 28.9 H Total CO2 32 31 Base Excess 2 1 O2 Saturation 87 L 92 L O2 % 45 ABG pCO2 77.3 H* 74.6 H* ABG pO2 66 L 80 Simon Test Positive Positive O2 Delivery Device Cannula BiPAP Liter Flow 2.0 Crit Call To/Read Back Yes Yes Clinical Comments 16 Radiology Impression Echocardiogram 08/29/20 21:53 Interpretation Summary Normal LV size. Left ventricular systolic function is normal. The estimated ejection fraction is 65 %. Stage 1 diastolic dysfunction. Contrast injection was performed. Ordering Physician: Liv Godinez Referring Physician: Ana Oates Performed By: Rosangela Hernandez, RDCS, RVT Liver Ultrasound 08/30/20 15:12 IMPRESSION: Hepatomegaly with sonographically normal appearing liver parenchyma. No evidence of contour nodularity. No evidence of focal hepatic mass. Remainder of the exam is otherwise unremarkable. Electronically Signed: Feliz Martinez MD at 18:59 EDT Tel , Service support , Charges/Coding Visit Charges Inpatient E&M: 10971 Init Hosp L3 Behavior Interventions Behavior Intervention: 51236 Smoking Cessation 3-10 min
[2020-08-31 05:55] LABS: ALB/GLOB Ratio 0.7 RATIO (0.9-2.4); AST(SGOT) 406 U/L (15-37); Alanine Aminotransfer ALT/SGPT 652 U/L (13-56); Albumin, Serum 2.6 g/dL (3.2-5.0); Alkaline Phosphatase 96 U/L (45-117); Anion Gap 3 (5-15); BUN 32 mg/dL (7-18); BUN/Creat Ratio 30.8 RATIO (10-20); Calcium,Total 8.1 mg/dL (8.5-10.1); Chloride 104 mmol/L (98-107); Creatinine, Serum 1.04 mg/dL (0.55-1.02); EST Glomerular Filtration Rate 58 mL/min (>60); Est Glom Filt Rate - Afr Amer 70 mL/min (>60); Estimated Creatinine Clearance 52.41 ml/min; Globulin 3.8 g/dL (2.2-4.2); Glucose 99 mg/dL (74-106); Potassium 5.4 mmol/L (3.5-5.1); Protein, Total 6.4 g/dL (6.4-8.2); Sodium Level 138 mmol/L (136-145)
[2020-08-31 06:26] LABS: Bedside Glucose 98 mg/dL (70-110)
--- NOTE | 2020-08-31 07:14 | PCM.PN.HOSP ---
Objective Data Objective Data Vital Signs: Vital Signs Temp Pulse Resp BP Pulse Ox 98.1 F 75 16 157/90 H 98 08/31/20 04:00 08/31/20 06:00 08/31/20 06:00 08/31/20 06:00 08/31/20 06:00 Oxygen Flow Rate (L/min) 6 Oxygen Delivery Method Room Air Weight: 104.825 kg Body Mass Index (BMI) 38.2 Orthostatic Vital Signs Start: 08/30/20 00:31 Freq: q24h Status: Active Protocol: Activity Type Activity Date Activity User E-Sign Co-Sign Detail Recorded Client Recorded Date Recorded By Document 08/30/20 06:04 MY [id number] 08/30/20 06:12 MY 08/30/20 06:04 Orthostatic Vitals Sitting -Blood Pressure (90/60-120/80) 109/62 -Extremity Use Left Arm -Pulse Rate (60-100) 80 Lying -Blood Pressure (90/60-120/80) 99/58 L -Extremity Use Left Arm -Pulse Rate (60-100) 84 Intake & Output: Intake and Output for Last 24 Hours 08/29/20 08/30/20 08/31/20 23:59 23:59 23:59 Intake Total 500 / 560 3630.00 / 3630.00 50 / 50 Output Total 690 / 690 925 / 925 Balance 500 / 560 2940.00 / 2940.00 -875 / -875 Lab / Micro Data Result Diagrams: 08/31/20 04:50 08/31/20 05:15 Labs: Laboratory Results - last 24 hr 08/30/20 08/30/20 08/30/20 02:20 10:55 14:32 WBC RBC Hgb Hct MCV MCH MCHC RDW Std Deviation RDW Coeff of Aleksandar Plt Count MPV Immature Gran % (Auto) Neut % (Auto) Lymph % (Auto) [place] % (Auto) Eos % (Auto) Baso % (Auto) Absolute Neuts (auto) Absolute Lymphs (auto) Nucleated RBC % Sodium Potassium Chloride Carbon Dioxide Anion Gap BUN Creatinine Estim Creat Clear Calc Est GFR (MDRD) Af Amer Est GFR (MDRD) Non-Af BUN/Creatinine Ratio Glucose Calcium Total Bilirubin AST ALT Alkaline Phosphatase Total Creatine Kinase 263 H Total Protein Albumin Globulin Albumin/Globulin Ratio COVID-19 (JOSEF) Not Detected POC Glucose 113 H 08/30/20 08/30/20 08/31/20 16:57 23:27 04:50 WBC 6.4 RBC 4.30 Hgb 12.2 Hct 38.4 MCV 89.3 MCH 28.4 MCHC 31.8 L RDW Std Deviation 54.6 H RDW Coeff of Aleksandar 17.2 H Plt Count 208 MPV 9.8 Immature Gran % (Auto) 0.900 Neut % (Auto) 78.8 H Lymph % (Auto) 13.2 L [place] % (Auto) 6.6 Eos % (Auto) 0.2 Baso % (Auto) 0.3 Absolute Neuts (auto) 5.0 Absolute Lymphs (auto) 0.84 Nucleated RBC % 1.3 Sodium Potassium Chloride Carbon Dioxide Anion Gap BUN Creatinine Estim Creat Clear Calc Est GFR (MDRD) Af Amer Est GFR (MDRD) Non-Af BUN/Creatinine Ratio Glucose Calcium Total Bilirubin AST ALT Alkaline Phosphatase Total Creatine Kinase Total Protein Albumin Globulin Albumin/Globulin Ratio COVID-19 (JOSEF) POC Glucose 101 95 08/31/20 08/31/20 08/31/20 04:50 05:15 06:16 WBC RBC Hgb Hct MCV MCH MCHC RDW Std Deviation RDW Coeff of Aleksandar Plt Count MPV Immature Gran % (Auto) Neut % (Auto) Lymph % (Auto) [place] % (Auto) Eos % (Auto) Baso % (Auto) Absolute Neuts (auto) Absolute Lymphs (auto) Nucleated RBC % Sodium Cancelled 138 Potassium Cancelled 5.4 H Chloride Cancelled 104 Carbon Dioxide Cancelled 31.0 Anion Gap Cancelled 3 L BUN Cancelled 32 H Creatinine Cancelled 1.04 H Estim Creat Clear Calc Cancelled 52.41 Est GFR (MDRD) Af Amer Cancelled 70 Est GFR (MDRD) Non-Af Cancelled 58 L BUN/Creatinine Ratio Cancelled 30.8 H Glucose Cancelled 99 Calcium Cancelled 8.1 L Total Bilirubin Cancelled 0.50 AST Cancelled 406 H ALT Cancelled 652 H Alkaline Phosphatase Cancelled 96 Total Creatine Kinase Total Protein Cancelled 6.4 Albumin Cancelled 2.6 L Globulin Cancelled 3.8 Albumin/Globulin Ratio Cancelled 0.7 L COVID-19 (JOSEF) POC Glucose 98 ABG Data ABG results: ABG 08/30/20 08/30/20 11:29 15:07 Specimen Type ART ART Sample Site L Radial R Brach pH 7.20 L 7.20 L Bicarbonate Actual 29.9 H 28.9 H Total CO2 32 31 Base Excess 2 1 O2 Saturation 87 L 92 L O2 % 45 ABG pCO2 77.3 H* 74.6 H* ABG pO2 66 L 80 Simon Test Positive Positive O2 Delivery Device Cannula BiPAP Liter Flow 2.0 Crit Call To/Read Back Yes Yes Clinical Comments 16 Radiography Diagnostic Testing: Radiology Impression Echocardiogram 08/29/20 21:53 Interpretation Summary Normal LV size. Left ventricular systolic function is normal. The estimated ejection fraction is 65 %. Stage 1 diastolic dysfunction. Contrast injection was performed. Ordering Physician: Liv Godinez Referring Physician: Ana Oates Performed By: Rosangela Hernandez, THIAGO, RVT Liver Ultrasound 08/30/20 15:12 IMPRESSION: Hepatomegaly with sonographically normal appearing liver parenchyma. No evidence of contour nodularity. No evidence of focal hepatic mass. Remainder of the exam is otherwise unremarkable. Electronically Signed: Feliz Martinez MD at 18:59 EDT Tel , Service support , Assessment & Plan Assessment/Plan (1) Falls: PLAN: 1. Acute encephalopathy secondary to respiratory acidosis, hypercapnia-chest x-ray admission without acute process. ABGs completed which demonstrated a pH of 7.2, bicarb 29, PCO2 77, O2 saturation 87%. BiPAP placed. Will repeat ABGs following therapy. Suspect secondary to untreated ALEN. Will consult pulmonary medicine as patient will need ongoing outpatient evaluation and management. Hold sedating regimen including trazodone, Zanaflex, Benadryl and gabapentin. 2. Recurrent falls with reported possible syncope-suspect secondary to #1. Unable to obtain orthostatic vitals due to weakness. Brain CT unremarkable. Echocardiogram demonstrates an EF of 65%, stage I diastolic dysfunction. Troponin negative. PT/OT. Case management consult. 3. Recent right lower extremity ankle cellulitis-appears resolved, continue previously prescribed doxycycline. 4. Chronic COPD with chronic hypoxic respiratory failure-continue aerosol regimen. Continue supplement oxygen to maintain O2 above 90%. 5. Upper extremity tremors-follows with neurology as outpatient. Suspected physiologic tremor. 6. Paroxysmal atrial fibrillation-on metoprolol. Not on oral anticoagulation. 7. CAD with history of PCI-on aspirin, statin, Plavix, metoprolol. 8. Hypertension-stable, continue metoprolol, lisinopril, hydrochlorothiazide. 9. Hyperlipidemia-continue statin. 10. Anxiety/depression-continue buspirone, escitalopram. 11. Type 2 diabetes [id number] with sliding scale insulin. Continue gabapentin regimen. Not on hyperglycemic regimen. Hemoglobin A1c in April 2020 6.1%. 12. Tobacco dependence-encouraged cessation. 13. Obesity- encouraged diet and lifestyle modifications. DVT prophylaxis- Lovenox sc This patient was seen by SUKHWINDER Arellano under the supervision of Dr. Santamaria. Yvonnet'l Comments This patient was seen in conjunction with SUKHWINDER Arellano . I have independently interviewed and examined the patient and reviewed pertinent historical, laboratory, and other data. Please refer to SUKHWINDER Arellano note for details of this patient's presentation, findings, and recommendations. I have reviewed SUKHWINDER Arellano note and concur with documented findings. In brief, patient is a 60-year-old female admitted with falls. An assessment of acute encephalopathy made admitted to a monitored bed. Patient was also found to have elevated troponin on admission 08/31/2020; patient was transferred to the intensive care unit. Was placed on noninvasive ventilation BiPAP in view of significant hypercarbia Physical Examination: GENERAL: Lethargic but arousable HEENT: Atraumatic; EYES; Anicteric, Normal Conjunctiva NECK; supple, normal thyroid, RESPIRATORY: Diminished to auscultation CARDIOVASCULAR: Regular S1 S2, GI: soft, normoactive bowel sounds, : No Renal angle tenderness; EXTREMITIES: No edema, no clubbing, MUSCULOSKELETAL: no muscle waisting NEURO: Awake; no lateralizing signs. SKIN: Plethoric PSYCH; Flat affect Assessment: 1. Acute metabolic encephalopathy 2. Acute hypercapnic respiratory failure 3. Acute respiratory acidosis 4. Acute non-STEMI 5. Chronic hypoxic respiratory failure secondary to COPD 6. Morbid obesity with BMI of 38 7. Right lower extremity cellulitis 8. Paroxysmal A. fib 9. Coronary artery disease with previous PCI 10. Essential hypertension 11. Dyslipidemia 12. Diabetes mellitus type 2 13. Depression with anxiety 14. Acute kidney injury 15. DVT prophylaxis 16. Polypharmacy 17. Physical deconditioning Recommendations: 1. I have discussed the results of my overview and impressions with the patient 2. Options for management were reviewed Charges/Coding Visit Charges Inpatient E&M: 72103 Init Hosp L3
[2020-08-31] MEDS: busPIRone 5 MG Tablet 20 MG PO ×3 (08:52→21:27)
[2020-08-31] MEDS: CHLORHEXIDINE GLUC 2% CLOTH 1 EACH TOWELETTE TOPICAL (08:56)
[2020-08-31] MEDS: Aspirin E.C. 81 MG Tablet PO (08:56)
[2020-08-31] MEDS: Doxycycline 100 MG CAPSULE PO ×2 (08:57→21:27)
[2020-08-31] MEDS: Metoprolol Tartrate 25 MG Tablet PO ×2 (08:57→21:27)
[2020-08-31] MEDS: Metoprolol Tartrate 50 MG Tablet PO ×2 (08:58→21:27)
[2020-08-31] MEDS: Clopidogrel Bisulfate 75 MG Tablet PO (08:58)
[2020-08-31] MEDS: Escitalopram Oxalate 20 MG Tablet PO (08:58)
[2020-08-31] MEDS: Heparin Injection (Vial) 5,000 UNIT/ML VIAL 5000 UNIT SC ×2 (09:05→21:33)
[2020-08-31 11:40] LABS: Bedside Glucose 118 mg/dL (70-110)
[2020-08-31] MEDS: Sodium Polystyrene Sulfonate 15 GM/60 ML UDC PO (11:44)
[2020-08-31] MEDS: HYDROcodone Bitartrate/Apap 5/325 Tablet PO ×2 (12:56→21:28)
--- NOTE | 2020-08-31 13:05 | PN.HOSP_ITS ---
Documented by User: Fadumo Edwards PROJECT MANAGER INTERIOR DESIGN, PROJECT MANAGER INTERIOR DESIGN-C 08/31/20 13:19 Subjective Subjective Patient seen and examined. More alert today, appropriate mentation. Requesting pain medicine. Upset with carb control diet, requesting regular diet. Denies other symptoms or complaints. Objective Data Objective Data Vital Signs: Vital Signs Temp Pulse Resp BP Pulse Ox 98.3 F 74 18 174/98 H 92 08/31/20 11:29 08/31/20 11:53 08/31/20 11:29 08/31/20 11:29 08/31/20 11:29 Oxygen Flow Rate (L/min) 2 Oxygen Delivery Method Room Air Weight: 231 lb 1.6 oz Body Mass Index (BMI) 38.2 Orthostatic Vital Signs Start: 08/30/20 00:31 Freq: q24h Status: Active Protocol: Activity Type Activity Date Activity User E-Sign Co-Sign Detail Recorded Client Recorded Date Recorded By Document 08/30/20 06:04 MY [id number] 08/30/20 06:12 MY 08/30/20 06:04 Orthostatic Vitals Sitting -Blood Pressure (90/60-120/80) 109/62 -Extremity Use Left Arm -Pulse Rate (60-100) 80 Lying -Blood Pressure (90/60-120/80) 99/58 L -Extremity Use Left Arm -Pulse Rate (60-100) 84 Intake & Output: Intake and Output for Last 24 Hours 08/29/20 08/30/20 08/31/20 23:59 23:59 23:59 Intake Total 500 / 560 3630.00 / 3630.00 1490 / 1490 Output Total 690 / 690 1725 / 1725 Balance 500 / 560 2940.00 / 2940.00 -235 / -235 Lab / Micro Data Result Diagrams: 08/31/20 04:50 08/31/20 05:15 Labs: Laboratory Results - last 24 hr 08/30/20 08/30/20 08/30/20 02:20 14:32 16:57 WBC RBC Hgb Hct MCV MCH MCHC RDW Std Deviation RDW Coeff of Aleksandar Plt Count MPV Immature Gran % (Auto) Neut % (Auto) Lymph % (Auto) [place] % (Auto) Eos % (Auto) Baso % (Auto) Absolute Neuts (auto) Absolute Lymphs (auto) Nucleated RBC % Sodium Potassium Chloride Carbon Dioxide Anion Gap BUN Creatinine Estim Creat Clear Calc Est GFR (MDRD) Af Amer Est GFR (MDRD) Non-Af BUN/Creatinine Ratio Glucose Calcium Total Bilirubin AST ALT Alkaline Phosphatase Total Creatine Kinase 263 H Total Protein Albumin Globulin Albumin/Globulin Ratio COVID-19 (JOSEF) Not Detected POC Glucose 101 08/30/20 08/31/20 08/31/20 23:27 04:50 04:50 WBC 6.4 RBC 4.30 Hgb 12.2 Hct 38.4 MCV 89.3 MCH 28.4 MCHC 31.8 L RDW Std Deviation 54.6 H RDW Coeff of Aleksandar 17.2 H Plt Count 208 MPV 9.8 Immature Gran % (Auto) 0.900 Neut % (Auto) 78.8 H Lymph % (Auto) 13.2 L [place] % (Auto) 6.6 Eos % (Auto) 0.2 Baso % (Auto) 0.3 Absolute Neuts (auto) 5.0 Absolute Lymphs (auto) 0.84 Nucleated RBC % 1.3 Sodium Cancelled Potassium Cancelled Chloride Cancelled Carbon Dioxide Cancelled Anion Gap Cancelled BUN Cancelled Creatinine Cancelled Estim Creat Clear Calc Cancelled Est GFR (MDRD) Af Amer Cancelled Est GFR (MDRD) Non-Af Cancelled BUN/Creatinine Ratio Cancelled Glucose Cancelled Calcium Cancelled Total Bilirubin Cancelled AST Cancelled ALT Cancelled Alkaline Phosphatase Cancelled Total Creatine Kinase Total Protein Cancelled Albumin Cancelled Globulin Cancelled Albumin/Globulin Ratio Cancelled COVID-19 (JOSEF) POC Glucose 95 08/31/20 08/31/20 08/31/20 05:15 06:16 11:22 WBC RBC Hgb Hct MCV MCH MCHC RDW Std Deviation RDW Coeff of Aleksandar Plt Count MPV Immature Gran % (Auto) Neut % (Auto) Lymph % (Auto) [place] % (Auto) Eos % (Auto) Baso % (Auto) Absolute Neuts (auto) Absolute Lymphs (auto) Nucleated RBC % Sodium 138 Potassium 5.4 H Chloride 104 Carbon Dioxide 31.0 Anion Gap 3 L BUN 32 H Creatinine 1.04 H Estim Creat Clear Calc 52.41 Est GFR (MDRD) Af Amer 70 Est GFR (MDRD) Non-Af 58 L BUN/Creatinine Ratio 30.8 H Glucose 99 Calcium 8.1 L Total Bilirubin 0.50 AST 406 H ALT 652 H Alkaline Phosphatase 96 Total Creatine Kinase Total Protein 6.4 Albumin 2.6 L Globulin 3.8 Albumin/Globulin Ratio 0.7 L COVID-19 (JOSEF) POC Glucose 98 118 H ABG Data ABG results: ABG 08/30/20 15:07 Specimen Type ART Sample Site R Brach pH 7.20 L Bicarbonate Actual 28.9 H Total CO2 31 Base Excess 1 O2 Saturation 92 L O2 % 45 ABG pCO2 74.6 H* ABG pO2 80 Simon Test Positive O2 Delivery Device BiPAP Crit Call To/Read Back Yes Clinical Comments 16 Radiography Diagnostic Testing: Radiology Impression Liver Ultrasound 08/30/20 15:12 IMPRESSION: Hepatomegaly with sonographically normal appearing liver parenchyma. No evidence of contour nodularity. No evidence of focal hepatic mass. Remainder of the exam is otherwise unremarkable. Electronically Signed: Feliz Martinez MD at 18:59 EDT Tel , Service support , Physical Exam Const alert, oriented x3 and no apparent distress Orientation / Consciousness: awake, oriented to person, oriented to place and oriented to time HEENT normocephalic and moist oral mucous membranes Eyes PERRL, EOMs intact bilaterally and conjunctivae normal Neck no lymphadenopathy Resp clear to auscultation bilaterally Auscultation: diminished lung sounds Cardio regular rate, regular rhythm and no murmurs Peripheral Pulses: pulses 2+ throughout GI normal to inspection, nondistended, normoactive bowel sounds, non-tender and non-distended Extremity normal to inspection Skin no rashes or lesions noted Lesions: no lesions Rashes: no rashes Trauma: no lacerations or abrasions Neuro CN's II-XII intact bilaterally, no focal motor deficits, no sensory deficits noted and deep tendon reflexes 2+ bilaterally Psych mental status grossly normal and affect normal Assessment & Plan Assessment/Plan (1) Acute respiratory failure: PLAN: 1. Acute metabolic encephalopathy secondary to acute combined respiratory failure with hypoxia and hypercapnia, respiratory acidosis-chest x- ray admission without acute process. ABGs consistent with respiratory acidosis. Pulmonary medicine consulted. Continue supplement oxygen to maintain O2 at above 90%. Continue AVAPS at night and with naps. Will need further outpatient follow-up with pulmonary medicine for formal sleep apnea evaluation. Hold sedating regimen including trazodone, Zanaflex, Benadryl, gabapentin, [place]. 2. Recurrent falls with reported possible syncope-suspect secondary to #1. Brain CT unremarkable. Echocardiogram demonstrates an EF of 65%, stage I diastolic dysfunction. Troponin negative. PT/OT. Case management consult. 3. Acute kidney injury on suspected CKD stage IIIa-LOVE resolved with IV fluids. Trend BMP. 4. Transaminitis: Liver ultrasound unremarkable. Enzymes trending down. Suspect secondary to hypotension. 5. Mild traumatic rhabdomyolysis-secondary to recurrent falls. IV fluids. 6. Recent right lower extremity ankle cellulitis-appears resolved, continue previously prescribed doxycycline. 7. Chronic COPD with chronic hypoxic respiratory failure-continue aerosol regimen. Continue supplement oxygen to maintain O2 above 90%. 8. Upper extremity tremors-follows with neurology as outpatient. Suspected physiologic tremor. 9. Paroxysmal atrial fibrillation-on metoprolol. Not on oral anticoagulation. 10. CAD with history of PCI-on aspirin, statin, Plavix, metoprolol. 11. Hypertension-stable, continue metoprolol. Lisinopril/HCTZ on hold. 12. Hyperlipidemia-continue statin. 13. Anxiety/depression-continue buspirone, escitalopram. 14. Type 2 diabetes [id number] with sliding scale insulin. Continue g abapentin regimen. Not on hyperglycemic regimen. Hemoglobin A1c in April 2020 6.1%. 15. Tobacco dependence-encouraged cessation. 16. Obesity- encouraged diet and lifestyle modifications. 17. History of alcohol abuse/opioid dependence-denies recent alcohol use. Follows with pain management, Dr. Fitzpatrick for opioid Rx. OARRS report does not show other narcotic prescriptions DVT prophylaxis- Lovenox sc Discharge planning: Patient amendable to SNF for rehab if recommended. This patient was seen by SUKHWINDER Arellano under the supervision of Dr. Santamaria. Documented by User: Dr. Fredy Santamaria MD 08/31/20 13:45 Objective Data Lab / Micro Data Result Diagrams: 08/31/20 04:50 08/31/20 05:15 Assessment & Plan Addt'l Comments This patient was seen in conjunction with SUKHWINDER Arellano . I have independently interviewed and examined the patient and reviewed pertinent historical, laboratory, and other data. Please refer to SUKHWINDER Arellano note for details of this patient's presentation, findings, and recommendations. I have reviewed SUKHWINDER Arellano note and concur with documented findings. In brief, patient is a 60-year-old female admitted with falls. An assessment of acute encephalopathy made admitted to a monitored bed. Patient was also found to have elevated troponin on admission 08/31/2020; patient was transferred to the intensive care unit. Was placed on noninvasive ventilation BiPAP in view of significant hypercarbia Physical Examination: GENERAL: Lethargic but arousable HEENT: Atraumatic; EYES; Anicteric, Normal Conjunctiva NECK; supple, normal thyroid, RESPIRATORY: Diminished to auscultation CARDIOVASCULAR: Regular S1 S2, GI: soft, normoactive bowel sounds, : No Renal angle tenderness; EXTREMITIES: No edema, no clubbing, MUSCULOSKELETAL: no muscle waisting NEURO: Awake; no lateralizing signs. SKIN: Plethoric PSYCH; Flat affect Assessment: 1. Acute metabolic encephalopathy 2. Acute hypercapnic respiratory failure 3. Acute respiratory acidosis 4. Acute non-STEMI 5. Chronic hypoxic respiratory failure secondary to COPD 6. Morbid obesity with BMI of 38 7. Right lower extremity cellulitis 8. Paroxysmal A. fib 9. Coronary artery disease with previous PCI 10. Essential hypertension 11. Dyslipidemia 12. Diabetes mellitus type 2 13. Depression with anxiety 14. Acute kidney injury 15. DVT prophylaxis 16. Polypharmacy 17. Physical deconditioning Recommendations: 1. I have discussed the results of my overview and impressions with the patient 2. Options for management were reviewed Charges/Coding Visit Charges Inpatient E&M: 159[address] [facility] [place] Hosp L3 Hospital Course Consultations Consultations: Consultations 08/30/20 13:21 Consult: Lead Assembler / Pulmonary Medicine Routine Consulting Provider: Ryne Kessler Reason for Consult: Respiratory acidosis, Hypercapnia, Suspected ALEN EMERGENT Consult: No MD Notified: Yes Date Notified:: 08/30/20 Time Notified: 13:21 Method of Notification: Text 08/30/20 13:42 Consult: Cardiology Routine Consulting Provider: Merritt Rashid Reason for Consult: NSTEMI, CAD EMERGENT Consult: No MD Notified: Yes Date Notified:: 08/30/20 Time Notified: 13:43 Method of Notification: Text Operations None
--- NOTE | 2020-08-31 13:15 | CASEMGMT ---
Assessment- SW completed assessment with patient at bedside. SW also confirmed addresses and phone numbers. Living situation- Patient lives alone in a 1 story home. She said there are at least 6 steps to get inside. PCP: Иван Specialists: [facility], [facility], [facility] Pharmacy: [facility] DME: walk in shower with built in seat, wheeled walker, and cane ADL's/IADL's: Per patient she bathes herself, does not use any assistive devices to get around, she toilets and dresses herself. She has a cleaning lady once a week. She manages her bills and medications. She also drives. Past SNF/rehab: None Past HH: None LW: Yes and it is on file at [facility] POA: Yes and it is on file at [facility] SW asked patient if she has any history of alcohol or drug use and she denied this. SW asked her if she has a history of Anxiety or Depression and she denied this. Per family patient has a history of alcohol abuse and pain med abuse. Per patient's medical record she has a history of Anxiety and Depression which she used to get counseling. Patient still seems a little loopy. She had troubles operating her phone to find her son's phone number. SW asked patient if therapy sees her and they recommend senior living facility is she open to this. She said if she absolutely has to she will. SW gave patient a list of SNF providers including quality and resource use data and consistent with the patient?s preferred geographic region, medical needs, and insurance network. SW told her the facilities that are highlighted are the ones that take her insurance. SW told her we will see how she does with therapy. Plan: Pending therapy [facility] BLANKET WASHER CANDIE
--- NOTE | 2020-08-31 15:02 | CON.PCM.CA_ITS ---
Assessment & Plan Assessment/Plan (1) NSTEMI (non-ST elevated myocardial infarction): PLAN: This is likely related to patient's presentation with respiratory failure. 2D echo revealed preserved EF. I think it will be reasonable for the patient to have a stress test as an outpatient. Stress testing versus coronary angiography was discussed with the patient in detail. Patient also preferred to start with a stress test rather than proceeding with coronary angiography directly. I agree that this is a reasonable approach. The stress test as mentioned above can be done as an outpatient. We will sign off at this time. If we can be of any further assistance please let us know. I think it will be reasonable not to have the patient on hydrochlorothiazide or other diuretics due to her history of dehydration. HPI Consult Data Date of Consult: 08/31/20 HPI Narrative Reason for Consultation: Elevated troponin HPI Narrative: JOHANA YBARRA, is a 60 F who presents with multiple falls. She was found to have acute renal failure and liver failure. Her troponin was elevated to 1.9 and has come down to 1.5. Patient has a of coronary artery disease status post PCI to LAD and RCA in 2017. Patient also had altered mental status that was felt to be due to multiple sedating medications and she had hypercapnic respiratory failure felt to be related to that. She required positive pressure ventilation. She was also on hydrochlorothiazide on presentation and has history of dehydration. She states that about 2 months back she was in the hospital with dehydration. Patient was started on IV fluids and her creatinine has improved significantly. Her LFTs have improved as well. Today her mentation appears normal and she is not in any respiratory distress. She denies any shortness of breath, chest pain etc. Prior to PCI she did not have any chest pain as well. Review of systems: All systems reviewed. All else is negative except that in the HPI [facility] Medical History (Updated 08/31/20 @ 05:[address] Ryne Kessler, DO) LOVE (acute kidney injury) Atherosclerosis of resighini coronary artery of resighini heart without angina pectoris Essential (primary) hypertension Fracture tibia/fibula Generalized anxiety disorder with panic attacks Hyperlipidemia Low back pain Lump of breast, left Nicotine dependence NSTEMI (non-ST elevated myocardial infarction) (10/2016) Obesity (BMI 30-39.9) Osteoarthritis Paroxysmal atrial fibrillation Pneumonia Smoker Syncope and collapse UTI (urinary tract infection) Vision problems Home Medications diphenhydramine HCl 50 mg PO QHS 01/15/17 [History Last Taken 08/28/20] aspirin 81 mg PO DAILY@0800 10/29/17 [History Last Taken 08/29/20] gabapentin 800 mg tablet 800 mg PO 4X/DAY tab 02/04/18 [History Last Taken 08/29/20] acetaminophen 1,000 mg PO BID 03/18/18 [History Last Taken 08/29/20] tizanidine 4 mg PO TID 03/18/18 [History Last Taken 08/29/20] lisinopril 20 mg tablet 20 mg PO BID tab 05/09/20 [History Last Taken 08/29/20] rosuvastatin 40 mg tablet 40 mg PO DAILY #90 tab 05/17/20 [Rx Last Taken 08/28/20] escitalopram oxalate 20 mg tablet 20 mg PO DAILY #90 tab 06/20/20 [Rx Last Taken 08/29/20] albuterol sulfate 90 mcg/actuation aerosol inhaler 2 puff INHALATION Q6H PRN #18 gm 07/19/20 [Rx Last Taken 08/29/20] trazodone 100 mg tablet 200 mg PO QHS #60 tab 08/01/20 [Rx Last Taken 08/28/20] clopidogrel 75 mg tablet 75 mg PO DAILY #90 tab 08/17/20 [Rx Last Taken 08/29/20] buspirone 10 mg tablet 20 mg PO TID tab 08/20/20 [History Last Taken 08/29/20] doxycycline monohydrate 100 mg PO BID #20 cap 08/28/20 [Rx Last Taken 08/28/20] hydrochlorothiazide 12.5 mg PO QODAY 08/28/20 [History Last Taken 08/28/20] hydrocodone-acetaminophen 1 tab PO TID 08/29/20 [History Last Taken 08/29/20] metoprolol tartrate 25 mg PO BID 08/29/20 [History Last Taken 08/29/20] metoprolol tartrate 50 mg PO BID 08/29/20 [History Last Taken 08/29/20] Allergy/AdvReac Type Severity Reaction Status Date / Time adhesive AdvReac Other Verified 08/29/20 12:43 baclofen AdvReac LETHARGY Verified 08/29/20 12:43 Family History Father Hypertension Bowel disease Heart disease Kidney disease Mother Hypertension Arthritis Bowel disease Colon cancer Heart disease High cholesterol Grandmother Arthritis Breast cancer Brain tumor Lung cancer Grandfather Myocardial infarction Surgical History H/O laminectomy History of colonoscopy History of coronary artery stent placement (11/17/16) History of left heart catheterization History of splenectomy History of total right hip replacement Hx of bone graft (2014) S/P ORIF (open reduction internal fixation) fracture Social History Smoking Status: Current every day smoker tobacco type: cigarettes Tobacco: How many years used: 35 alcohol intake: current alcohol intake frequency: holidays/special occasions only Alcohol type: hard liquor substance use type: former substance user Date of last use: 20 years ago and marijuana caffeine: Yes Type: carbonated beverages and coffee what type of physical activity do you participate in: other details: Physical Therapy frequency: 3-4 times per week seatbelt use: always do you feel safe at home: Yes Physical Exam Const alert and oriented x3 Orientation / Consciousness: awake HEENT normocephalic Eyes no scleral icterus Chest inspection of chest normal Resp normal respiratory effort Cardio regular rate and regular rhythm Skin no rashes or lesions noted Neuro oriented x3 Psych mental status grossly normal Objective Data Vital Signs: Vital Signs Temp Pulse Resp BP Pulse Ox 98.3 F 79 18 174/98 H 92 08/31/20 11:29 08/31/20 14:54 08/31/20 11:29 08/31/20 11:29 08/31/20 11:29 Oxygen Flow Rate (L/min) 2 Oxygen Delivery Method Room Air Weight: 231 lb 1.6 oz Body Mass Index (BMI) 38.2 Orthostatic Vital Signs Start: 08/30/20 00:31 Freq: q24h Status: Active Protocol: Activity Type Activity Date Activity User E-Sign Co-Sign Detail Recorded Client Recorded Date Recorded By Document 08/30/20 06:04 MY [id number] 08/30/20 06:12 MY 08/30/20 06:04 Orthostatic Vitals Sitting -Blood Pressure (90/60-120/80) 109/62 -Extremity Use Left Arm -Pulse Rate (60-100) 80 Lying -Blood Pressure (90/60-120/80) 99/58 L -Extremity Use Left Arm -Pulse Rate (60-100) 84 Intake & Output: Intake and Output for Last 24 Hours 08/29/20 08/30/20 08/31/20 23:59 23:59 23:59 Intake Total 500 / 560 3630.00 / 3630.00 1490 / 1490 Output Total 690 / 690 1725 / 1725 Balance 500 / 560 2940.00 / 2940.00 -235 / -235 Lab / Micro Data Result Diagrams: 08/31/20 04:50 08/31/20 05:15 Labs: Laboratory Results - last 24 hr 08/30/20 08/30/20 08/30/20 14:32 16:57 23:27 WBC RBC Hgb Hct MCV MCH MCHC RDW Std Deviation RDW Coeff of Aleksandar Plt Count MPV Immature Gran % (Auto) Neut % (Auto) Lymph % (Auto) [place] % (Auto) Eos % (Auto) Baso % (Auto) Absolute Neuts (auto) Absolute Lymphs (auto) Nucleated RBC % Sodium Potassium Chloride Carbon Dioxide Anion Gap BUN Creatinine Estim Creat Clear Calc Est GFR (MDRD) Af Amer Est GFR (MDRD) Non-Af BUN/Creatinine Ratio Glucose Calcium Total Bilirubin AST ALT Alkaline Phosphatase Total Protein Albumin Globulin Albumin/Globulin Ratio COVID-19 (JOSEF) Not Detected POC Glucose 101 95 08/31/20 08/31/20 08/31/20 04:50 04:50 05:15 WBC 6.4 RBC 4.30 Hgb 12.2 Hct 38.4 MCV 89.3 MCH 28.4 MCHC 31.8 L RDW Std Deviation 54.6 H RDW Coeff of Aleksandar 17.2 H Plt Count 208 MPV 9.8 Immature Gran % (Auto) 0.900 Neut % (Auto) 78.8 H Lymph % (Auto) 13.2 L [place] % (Auto) 6.6 Eos % (Auto) 0.2 Baso % (Auto) 0.3 Absolute Neuts (auto) 5.0 Absolute Lymphs (auto) 0.84 Nucleated RBC % 1.3 Sodium Cancelled 138 Potassium Cancelled 5.4 H Chloride Cancelled 104 Carbon Dioxide Cancelled 31.0 Anion Gap Cancelled 3 L BUN Cancelled 32 H Creatinine Cancelled 1.04 H Estim Creat Clear Calc Cancelled 52.41 Est GFR (MDRD) Af Amer Cancelled 70 Est GFR (MDRD) Non-Af Cancelled 58 L BUN/Creatinine Ratio Cancelled 30.8 H Glucose Cancelled 99 Calcium Cancelled 8.1 L Total Bilirubin Cancelled 0.50 AST Cancelled 406 H ALT Cancelled 652 H Alkaline Phosphatase Cancelled 96 Total Protein Cancelled 6.4 Albumin Cancelled 2.6 L Globulin Cancelled 3.8 Albumin/Globulin Ratio Cancelled 0.7 L COVID-19 (JOSEF) POC Glucose 08/31/20 08/31/20 06:16 11:22 WBC RBC Hgb Hct MCV MCH MCHC RDW Std Deviation RDW Coeff of Aleksandar Plt Count MPV Immature Gran % (Auto) Neut % (Auto) Lymph % (Auto) [place] % (Auto) Eos % (Auto) Baso % (Auto) Absolute Neuts (auto) Absolute Lymphs (auto) Nucleated RBC % Sodium Potassium Chloride Carbon Dioxide Anion Gap BUN Creatinine Estim Creat Clear Calc Est GFR (MDRD) Af Amer Est GFR (MDRD) Non-Af BUN/Creatinine Ratio Glucose Calcium Total Bilirubin AST ALT Alkaline Phosphatase Total Protein Albumin Globulin Albumin/Globulin Ratio COVID-19 (JOSEF) POC Glucose 98 118 H ABG Data ABG results: ABG 08/30/20 15:07 Specimen Type ART Sample Site R Brach pH 7.20 L Bicarbonate Actual 28.9 H Total CO2 31 Base Excess 1 O2 Saturation 92 L O2 % 45 ABG pCO2 74.6 H* ABG pO2 80 Simon Test Positive O2 Delivery Device BiPAP Crit Call To/Read Back Yes Clinical Comments 16 Cardiology Labs/Tests 08/30/20 15:07: pH 7.20 L, Bicarbonate Actual 28.9 H, Base Excess 1, O2 Saturation 92 L, ABG pCO2 74.6 H*, ABG pO2 80, Simon Test Positive 08/31/20 04:50: WBC 6.4, RBC 4.30, Hgb 12.2, Hct 38.4, MCV 89.3, MCH 28.4, MCHC 31.8 L, Plt Count 208, MPV 9.8, Immature Gran % (Auto) 0.900, Neut % (Auto) 78.8 H, Lymph % (Auto) 13.2 L, [place] % (Auto) 6.6, Eos % (Auto) 0.2, Baso % (Auto) 0.3, Absolute Neuts (auto) 5.0, Nucleated RBC % 1.3 08/31/20 04:50: Sodium Cancelled, Potassium Cancelled, Chloride Cancelled, Carbon Dioxide Cancelled, Anion Gap Cancelled, BUN Cancelled, Creatinine Cancelled, Est GFR (MDRD) Af Amer Cancelled, Est GFR (MDRD) Non-Af Cancelled, BUN/Creatinine Ratio Cancelled, Glucose Cancelled, Calcium Cancelled, Total Bilirubin Cancelled 08/31/20 05:15: Sodium 138, Potassium 5.4 H, Chloride 104, Carbon Dioxide 31.0, Anion Gap 3 L, BUN 32 H, Creatinine 1.04 H, Est GFR (MDRD) Af Amer 70, Est GFR (MDRD) Non-Af 58 L, BUN/Creatinine Ratio 30.8 H, Glucose 99, Calcium 8.1 L, Total Bilirubin 0.50 Rhythm: EKG: ECHO: Stress Test: Cardiac Cath: PCI: CT Surgery: Holter monitor: EPS: PPM: CXR: Chest CT Scan: Radiography Diagnostic Testing: Radiology Impression Liver Ultrasound 08/30/20 15:12 IMPRESSION: Hepatomegaly with sonographically normal appearing liver parenchyma. No evidence of contour nodularity. No evidence of focal hepatic mass. Remainder of the exam is otherwise unremarkable. Electronically Signed: Feliz Martinez MD at 18:59 EDT Tel , Service support ,
[2020-08-31] MEDS: guaiFENesin 10 ML UDC (200MG/10ML) 20 ML PO (16:19)
[2020-08-31 16:21] LABS: Bedside Glucose 107 mg/dL (70-110)
[2020-08-31] MEDS: Atorvastatin Calcium 80 MG Tablet PO (21:27)
[2020-08-31 22:16] LABS: Bedside Glucose 102 mg/dL (70-110)
--- NOTE | 2020-08-31 22:25 | CPS ---
Pt. adamantly refusing to wear BiPAP (AVAPS) tonight. I expressed the importance of using this at night time, but pt. was 100% against wearing it. Pt. currently not on supplemental oxygen, and her SpO2 is 92%. There's no confusion when talking with the pt., and her respiratory rate is 20 at this time.
[2020-09-01] VITALS (13 sets, daily range): BP systolic 149–204; BP diastolic 84–134; PULSE 61–83; RESP 16–19; TEMP 36.3–36.7; O2SAT 93–98
[2020-09-01] MEDS: busPIRone 5 MG Tablet 20 MG PO ×2 (06:30→14:22)
[2020-09-01 06:35] LABS: Bedside Glucose 118 mg/dL (70-110)
[2020-09-01 06:53] LABS: Absolute Lymphocyte Count 1.15 X10^3/uL (0.83-4.51); Absolute Neutrophil Count 5.2 X10^3/uL (2.0-7.7); Basophil# 0.02 X10^3/uL; Basophil% 0.3 % (0-1); Eosinophil# 0.03 X10^3/uL; Eosinophils% 0.4 % (0-5); Hematocrit 40.6 % (37-47); Hemoglobin 13.1 g/dL (12.0-15.0); Lymphocyte # 1.15 X10^3/ul (0.83-4.51); Lymphocyte % 16.4 % (19-41); Mean Corp Hgb Conc 32.3 g/dL (32-36); Mean Corpuscular Hgb 27.9 pg (27.0-32.0); Mean Corpuscular Volume 86.4 fL (81-99); Mean Platelet Vol. 9.3 fl (6.2-12.0); Monocyte# 0.62 X10^3/uL; Monocyte% 8.8 % (0-10); NRBC Flagged by Analyzer 0.4 % (0-5); Neutrophil # 5.18 X10^3/uL (2.7-7.7); Neutrophil % 73.7 % (47-70); Platelet Count 258 K/mm3 (150-450); RBC Distribution Width CV 16.7 % (11.6-14.6); RBC Distribution Width SD 50.7 fl (35.1-43.9)
[2020-09-01 07:26] LABS: ALB/GLOB Ratio 0.7 RATIO (0.9-2.4); AST(SGOT) 197 U/L (15-37); Alanine Aminotransfer ALT/SGPT 506 U/L (13-56); Alkaline Phosphatase 115 U/L (45-117); Anion Gap 6 (5-15); BUN 17 mg/dL (7-18); Calcium,Total 8.7 mg/dL (8.5-10.1); Chloride 99 mmol/L (98-107); Creatinine, Serum 0.74 mg/dL (0.55-1.02); EST Glomerular Filtration Rate 86 mL/min (>60); Est Glom Filt Rate - Afr Amer 104 mL/min (>60); Estimated Creatinine Clearance 73.66 ml/min; Globulin 4.1 g/dL (2.2-4.2); Glucose 105 mg/dL (74-106); Potassium 4.3 mmol/L (3.5-5.1); Protein, Total 7.1 g/dL (6.4-8.2); Sodium Level 135 mmol/L (136-145)
[2020-09-01] MEDS: Aspirin E.C. 81 MG Tablet PO (08:05)
[2020-09-01] MEDS: HYDROcodone Bitartrate/Apap 5/325 Tablet PO (08:05)
[2020-09-01] MEDS: Metoprolol Tartrate 50 MG Tablet PO (09:38)
[2020-09-01] MEDS: Escitalopram Oxalate 20 MG Tablet PO (09:38)
[2020-09-01] MEDS: Clopidogrel Bisulfate 75 MG Tablet PO (09:38)
[2020-09-01] MEDS: Doxycycline 100 MG CAPSULE PO (09:38)
[2020-09-01] MEDS: Metoprolol Tartrate 25 MG Tablet PO (09:38)
[2020-09-01 11:45] LABS: Bedside Glucose 106 mg/dL (70-110)
--- NOTE | 2020-09-01 11:47 | PCM.DC ---
Discharge Instructions Diet Discharge Diet: Low fat / Low cholesterol and Carb Control Diet Activity Discharge Activity: Return to Normal Activity Weight Bearing Status: Weight bearing as tolerated (Right ankle, wear boot with ambulation) Dressing / Incision Call your doctor if you observe: Shortness of breath, Dizziness and Chest pain Follow Up Care Test Results: Test results from this visit will be discussed in further detail at your follow-up appointment, if applicable. Discharge Plan Admission Admit Date/Time: 08/30/20 13:33 Primary Reason for Your Visit: Respiratory failure, acute kidney injury, recurrent falls Attending Provider: Fredy Santamaria Primary Care Provider: Ana Oates Consulting Providers: Merritt Rashid ; Ryne Kessler Instructions Additional Instructions / Restrictions: You will need outpatient stress test which may be ordered by primary care provider or cardiology. Discharge Orders/Prescriptions Prescriptions: Continued lisinopril 20 mg tablet 20 mg PO BID RF: 0 albuterol sulfate 90 mcg/actuation HFA aerosol inhaler 2 puff INHALATION Q6H PRN (Reason: shortness of breath or wheezing) Qty: 18 RF: 2 aspirin 81 MG tablet 81 mg PO DAILY@0800 RF: 0 acetaminophen 500 MG tablet 1,000 mg PO BID RF: 0 buspirone 10 mg tablet 20 mg PO TID RF: 0 hydrochlorothiazide 12.5 mg tablet 12.5 mg PO QODAY RF: 0 doxycycline monohydrate 100 MG capsule 100 mg PO BID Qty: 20 RF: 0 hydrocodone-acetaminophen 7.5-325 mg tablet 1 tab PO TID RF: 0 metoprolol tartrate 50 mg tablet 50 mg PO BID RF: 0 metoprolol tartrate 25 mg tablet 25 mg PO BID RF: 0 rosuvastatin 40 mg tablet 40 mg PO DAILY Qty: 90 RF: 3 escitalopram oxalate [Lexapro] 20 mg tablet 20 mg PO DAILY Qty: 90 RF: 3 trazodone 100 mg tablet 200 mg PO QHS Qty: 60 RF: 2 clopidogrel 75 mg tablet 75 mg PO DAILY Qty: 90 RF: 3 Changed tizanidine 4 MG tablet 4 mg PO TID PRN (Reason: muscle spasm/pain) Qty: 0 RF: 0 gabapentin 800 mg tablet 800 mg PO TID Qty: 0 RF: 0 Discontinued diphenhydramine HCl 25 MG capsule 50 mg PO QHS RF: 0 Referrals / Follow Up: Ana Oates MD [Primary Care Provider] - In 1 Week Michael Millan DPM [STAFF PHYSICIAN] - See Referral Note (As needed, call for appointment if continued right ankle pain) Marv Thapa MD [STAFF PHYSICIAN] - Within 2 Weeks (Will need outpatient stress test) Urszula Arboleda NP, DIRECTOR DATA ARCHITECTURE-C [Nurse Practitioner] - Within 2 Weeks Disposition Disposition (needs filled in before D/C Order can be placed): Home, self care
[2020-09-01] MEDS: hydrALAZINE 20 MG/ML Vial 10 MG IV (11:56)
[2020-09-01] MEDS: 0.9% Saline Lock 10 ML Syringe IV (11:57)
--- NOTE | 2020-09-01 13:08 | DS.PCM_ITS ---
Documented by User: Fadumo Edwards NP, GLASS OR MIRROR INSPECTOR-C 09/01/20 13:18 Providers Date of Admission: 08/30/20 Date of Discharge: 09/01/20 Primary Care Physician: Dr. Ana Oates MD Consultations 08/30/20 13:21 Consult: Equipment Washer / Pulmonary Medicine Routine Consulting Provider: Ryne Kessler Reason for Consult: Respiratory acidosis, Hypercapnia, Suspected ALEN EMERGENT Consult: No MD Notified: Yes Date Notified:: 08/30/20 Time Notified: 13:21 Method of Notification: Text 08/30/20 13:42 Consult: Cardiology Routine Consulting Provider: Merritt Rashid Reason for Consult: NSTEMI, CAD EMERGENT Consult: No MD Notified: Yes Date Notified:: 08/30/20 Time Notified: 13:43 Method of Notification: Text Reason For Visit: FREQUENT FALLS, R KNEE PAIN Diagnosis Discharge Diagnosis (1) NSTEMI (non-ST elevated myocardial infarction): Status: Resolved Code(s): I21.4 - Non-ST elevation (NSTEMI) myocardial infarction Medications at Discharge Home Medications aspirin 81 mg PO DAILY@0800 10/29/17 acetaminophen 1,000 mg PO BID 03/18/18 lisinopril 20 mg tablet 20 mg PO BID tab 05/09/20 rosuvastatin 40 mg tablet 40 mg PO DAILY #90 tab 05/17/20 escitalopram oxalate 20 mg tablet 20 mg PO DAILY #90 tab 06/20/20 albuterol sulfate 90 mcg/actuation aerosol inhaler 2 puff INHALATION Q6H PRN #18 gm 07/19/20 trazodone 100 mg tablet 200 mg PO QHS #60 tab 08/01/20 clopidogrel 75 mg tablet 75 mg PO DAILY #90 tab 08/17/20 buspirone 10 mg tablet 20 mg PO TID tab 08/20/20 doxycycline monohydrate 100 mg PO BID #20 cap 08/28/20 hydrochlorothiazide 12.5 mg PO QODAY 08/28/20 hydrocodone-acetaminophen 1 tab PO TID 08/29/20 metoprolol tartrate 25 mg PO BID 08/29/20 metoprolol tartrate 50 mg PO BID 08/29/20 gabapentin 800 mg PO TID #0 tab 09/01/20 tizanidine 4 mg PO TID PRN #0 tab 09/01/20 Hospital Course Operations None Procedures 2-D Echocardiogram Summary of Care Provided Minutes Spent on Discharge: 35 Hospital Course: Patient is a 60-year-old female admitted 08/29/20 due to multiple falls. 1. Acute metabolic encephalopathy secondary to acute combined respiratory failure with hypoxia and hypercapnia, respiratory acidosis-chest x-ray admission without acute process. ABGs consistent with respiratory acidosis. Pulmonary medicine consulted. Will need further outpatient follow-up with pulmonary medicine for formal sleep apnea evaluation. Sedating regimen including trazodone, Zanaflex, Benadryl, gabapentin, [place] held during admission. Discussed with patient reducing the doses of these medications, tapering off. She is not amenable to any adjustment in her medications and states she has been on them forever. Patient's mental status improved and she became more alert following AVAPS treatment, she is subsequently refused BiPAP/AVAPS during admission. She was referred to pulmonary medicine for ongoing outpatient sleep apnea evaluation however patient is noncompliant with follow-up and is not amendable to recommended treatment. Oxygen stable on room air at discharge. Follow-up with PCP in 1 week and pulmonary medicine in 2 weeks. 2. Recurrent falls with reported possible syncope-suspect secondary to #1. Brain CT unremarkable. Echocardiogram demonstrates an EF of 65%, stage I diastolic dysfunction. Patient declined SNF. Declined home health. 3. Acute kidney injury on suspected CKD stage IIIa-LOVE resolved with IV fluids. 4. NSTEMI-cardiology consulted during admission. Continue home aspirin, Plavix, statin, beta-kusum regimen. Plan for outpatient stress test, patient is aware she will need to follow-up with PCP and/or cardiology to have this ordered. Suspect demand ischemia related to #1. Cardiology discussed outpatient stress test versus cath and patient amenable to stress test. 5. Transaminitis: Liver ultrasound unremarkable. Enzymes trended down. Suspect secondary to hypotension. 6. Mild traumatic rhabdomyolysis-secondary to recurrent falls. 7. Recent right lower extremity ankle cellulitis and right lateral malleolus avulsion fracture-continue previously prescribed course of doxycycline for cellulitis. Discussed with Dr. Millan, podiatry. Patient may follow-up as ne eded if she has worsening right ankle/foot pain. Recommended wearing the boot with ambulation which she was recently given from ED. Ice, elevation, compression. 8. Chronic COPD-continue home inhaler regimen. 9. Upper extremity tremors-follows with neurology as outpatient. Suspected physiologic tremor. 10. Paroxysmal atrial fibrillation-on metoprolol. Not on oral anticoagulation. 11. CAD with history of PCI-on aspirin, statin, Plavix, metoprolol. 12. Hypertension-stable, continue metoprolol, lisinopril, HCTZ. 13. Hyperlipidemia-continue statin. 14. Anxiety/depression-continue buspirone, escitalopram. 15. Type 2 diabetes mellitus-Continue gabapentin regimen. Not on hyperglycemic regimen. Hemoglobin A1c in April 2020 6.1%. Recommend reducing gabapentin to 3 times daily dosing. 16. Tobacco dependence-encouraged cessation. 17. Obesity- encouraged diet and lifestyle modifications. 18. History of alcohol abuse/opioid dependence-denies recent alcohol use. Follows with pain management, Dr. Fitzpatrick for opioid Rx. OARRS report does not show other narcotic prescriptions. Physical Exam Const alert, oriented x3 and no apparent distress Orientation / Consciousness: awake, oriented to person, oriented to place and oriented to time HEENT normocephalic and moist oral mucous membranes Eyes PERRL, EOMs intact bilaterally and conjunctivae normal Neck no lymphadenopathy Resp clear to auscultation bilaterally Auscultation: diminished lung sounds Cardio regular rate, regular rhythm and no murmurs Peripheral Pulses: pulses 2+ throughout GI normal to inspection, nondistended, normoactive bowel sounds, non-tender and non-distended Extremity normal to inspection Skin no rashes or lesions noted Lesions: no lesions Rashes: no rashes Trauma: no lacerations or abrasions Neuro CN's II-XII intact bilaterally, no focal motor deficits, no sensory deficits noted and deep tendon reflexes 2+ bilaterally Psych mental status grossly normal and affect normal Patient seen and examined prior to discharge. Physical assessment as noted above. Patient is stable for discharge with follow up recommendations as noted above. This patient was seen by SUKHWINDER Arellano under the supervision of Dr. Santamaria. ABG / Lab / Microbiology Data Result Diagrams: 09/01/20 06:45 09/01/20 06:45 Laboratory: Laboratory Results - last 24 hr 08/31/20 08/31/20 09/01/20 16:15 21:31 06:33 WBC RBC Hgb Hct MCV MCH MCHC RDW Std Deviation RDW Coeff of Aleksandar Plt Count MPV Immature Gran % (Auto) Neut % (Auto) Lymph % (Auto) Dupage % (Auto) Eos % (Auto) Baso % (Auto) Absolute Neuts (auto) Absolute Lymphs (auto) Nucleated RBC % Sodium Potassium Chloride Carbon Dioxide Anion Gap BUN Creatinine Estim Creat Clear Calc Est GFR (MDRD) Af Amer Est GFR (MDRD) Non-Af BUN/Creatinine Ratio Glucose Calcium Total Bilirubin AST ALT Alkaline Phosphatase Total Protein Albumin Globulin Albumin/Globulin Ratio POC Glucose 107 102 118 H 09/01/20 09/01/20 09/01/20 06:45 06:45 11:42 WBC 7.0 RBC 4.70 Hgb 13.1 Hct 40.6 MCV 86.4 MCH 27.9 MCHC 32.3 RDW Std Deviation 50.7 H RDW Coeff of Aleksandar 16.7 H Plt Count 258 MPV 9.3 Immature Gran % (Auto) 0.400 Neut % (Auto) 73.7 H Lymph % (Auto) 16.4 L Dupage % (Auto) 8.8 Eos % (Auto) 0.4 Baso % (Auto) 0.3 Absolute Neuts (auto) 5.2 Absolute Lymphs (auto) 1.15 Nucleated RBC % 0.4 Sodium 135 L Potassium 4.3 Chloride 99 Carbon Dioxide 30.0 Anion Gap 6 BUN 17 Creatinine 0.74 Estim Creat Clear Calc 73.66 Est GFR (MDRD) Af Amer 104 Est GFR (MDRD) Non-Af 86 BUN/Creatinine Ratio 23.0 H Glucose 105 Calcium 8.7 Total Bilirubin 1.00 AST 197 H ALT 506 H Alkaline Phosphatase 115 Total Protein 7.1 Albumin 3.0 L Globulin 4.1 Albumin/Globulin Ratio 0.7 L POC Glucose 106 D/C Instructions Discharge Diet: Low fat / Low cholesterol and Carb Control Diet Weight Bearing Status: Weight bearing as tolerated (Right ankle, wear boot with ambulation) Call your doctor if you observe: Shortness of breath, Dizziness and Chest pain Meaningful Use Info Meaningful Use Diagnoses (Choose all that apply): None applicable Discharge Plan Admission Admit Date/Time: 08/30/20 13:33 Primary Reason for Your Visit: Respiratory failure, acute kidney injury, recurrent falls Attending Provider: Fredy Santamaria Primary Care Provider: Ana Oates Consulting Providers: Merritt Rashid ; Ryne Kessler Instructions Additional Instructions / Restrictions: You will need outpatient stress test which may be ordered by primary care provider or cardiology. Discharge Orders/Prescriptions Prescriptions: Continued lisinopril 20 mg tablet 20 mg PO BID RF: 0 albuterol sulfate 90 mcg/actuation HFA aerosol inhaler 2 puff INHALATION Q6H PRN (Reason: shortness of breath or wheezing) Qty: 18 RF: 2 aspirin 81 MG tablet 81 mg PO DAILY@0800 RF: 0 acetaminophen 500 MG tablet 1,000 mg PO BID RF: 0 buspirone 10 mg tablet 20 mg PO TID RF: 0 hydrochlorothiazide 12.5 mg tablet 12.5 mg PO QODAY RF: 0 doxycycline monohydrate 100 MG capsule 100 mg PO BID Qty: 20 RF: 0 hydrocodone-acetaminophen 7.5-325 mg tablet 1 tab PO TID RF: 0 metoprolol tartrate 50 mg tablet 50 mg PO BID RF: 0 metoprolol tartrate 25 mg tablet 25 mg PO BID RF: 0 rosuvastatin 40 mg tablet 40 mg PO DAILY Qty: 90 RF: 3 escitalopram oxalate [Lexapro] 20 mg tablet 20 mg PO DAILY Qty: 90 RF: 3 trazodone 100 mg tablet 200 mg PO QHS Qty: 60 RF: 2 clopidogrel 75 mg tablet 75 mg PO DAILY Qty: 90 RF: 3 Changed tizanidine 4 MG tablet 4 mg PO TID PRN (Reason: muscle spasm/pain) Qty: 0 RF: 0 gabapentin 800 mg tablet 800 mg PO TID Qty: 0 RF: 0 Discontinued diphenhydramine HCl 25 MG capsule 50 mg PO QHS RF: 0 Referrals / Follow Up: Ana Oates MD [Primary Care Provider] - In 1 Week Michael Millan DPM [STAFF PHYSICIAN] - See Referral Note (As needed, call for appointment if continued right ankle pain) Marv Thapa MD [STAFF PHYSICIAN] - Within 2 Weeks (Will need outpatient stress test) Urszula Arboleda NP, GLASS OR MIRROR INSPECTOR-C [Nurse Practitioner] - Within 2 Weeks Disposition Disposition (needs filled in before D/C Order can be placed): Home, self care Documented by User: Dr. Fredy Santamaria MD 09/01/20 13:30 Providers Date of Admission: 08/30/20 Reason For Visit: FREQUENT FALLS, R KNEE PAIN Medications at Discharge Home Medications aspirin 81 mg PO DAILY@0800 10/29/17 acetaminophen 1,000 mg PO BID 03/18/18 lisinopril 20 mg tablet 20 mg PO BID tab 05/09/20 rosuvastatin 40 mg tablet 40 mg PO DAILY #90 tab 05/17/20 escitalopram oxalate 20 mg tablet 20 mg PO DAILY #90 tab 06/20/20 albuterol sulfate 90 mcg/actuation aerosol inhaler 2 puff INHALATION Q6H PRN #18 gm 07/19/20 trazodone 100 mg tablet 200 mg PO QHS #60 tab 08/01/20 clopidogrel 75 mg tablet 75 mg PO DAILY #90 tab 08/17/20 buspirone 10 mg tablet 20 mg PO TID tab 08/20/20 doxycycline monohydrate 100 mg PO BID #20 cap 08/28/20 hydrochlorothiazide 12.5 mg PO QODAY 08/28/20 hydrocodone-acetaminophen 1 tab PO TID 08/29/20 metoprolol tartrate 25 mg PO BID 08/29/20 metoprolol tartrate 50 mg PO BID 08/29/20 gabapentin 800 mg PO TID #0 tab 09/01/20 tizanidine 4 mg PO TID PRN #0 tab 09/01/20 Hospital Course Operations None Summary of Care Provided Hospital Course: This patient was seen in conjunction with RUSLAN Arellano . I have independently interviewed and examined the patient and reviewed pertinent historical, laboratory, and other data. Please refer to SUKHWINDER Arellano note for details of this patient's presentation, findings, and recommendations. I have reviewed SUKHWINDER Arellano note and concur with documented findings. In brief, patient is a 60-year-old female admitted with falls. An assessment of acute encephalopathy made admitted to a monitored bed. Patient was also found to have elevated troponin on admission. Patient was transferred to the intensive care unit. Was placed on noninvasive ventilation BiPAP in view of significant hypercarbia Assessment: 1. Acute metabolic encephalopathy 2. Acute hypercapnic respiratory failure 3. Acute respiratory acidosis 4. Acute non-STEMI 5. Chronic hypoxic respiratory failure secondary to COPD 6. Morbid obesity with BMI of 38 7. Right lower extremity cellulitis 8. Paroxysmal A. fib 9. Coronary artery disease with previous PCI 10. Essential hypertension 11. Dyslipidemia 12. Diabetes mellitus type 2 13. Depression with anxiety 14. Acute kidney injury 15. DVT prophylaxis 16. Polypharmacy 17. Physical deconditioning Hospital Course; as documented above ABG / Lab / Microbiology Data Result Diagrams: 09/01/20 06:45 09/01/20 06:45 Discharge Plan Admission Admit Date/Time: 08/30/20 13:33 Primary Reason for Your Visit: Respiratory failure, acute kidney injury, recurrent falls Attending Provider: Fredy Santamaria Primary Care Provider: Ana Oates Consulting Providers: Merritt Rashid ; Ryne Kessler Instructions Additional Instructions / Restrictions: You will need outpatient stress test which may be ordered by primary care provider or cardiology. Discharge Orders/Prescriptions Prescriptions: Continued lisinopril 20 mg tablet 20 mg PO BID RF: 0 albuterol sulfate 90 mcg/actuation HFA aerosol inhaler 2 puff INHALATION Q6H PRN (Reason: shortness of breath or wheezing) Qty: 18 RF: 2 aspirin 81 MG tablet 81 mg PO DAILY@0800 RF: 0 acetaminophen 500 MG tablet 1,000 mg PO BID RF: 0 buspirone 10 mg tablet 20 mg PO TID RF: 0 hydrochlorothiazide 12.5 mg tablet 12.5 mg PO QODAY RF: 0 doxycycline monohydrate 100 MG capsule 100 mg PO BID Qty: 20 RF: 0 hydrocodone-acetaminophen 7.5-325 mg tablet 1 tab PO TID RF: 0 metoprolol tartrate 50 mg tablet 50 mg PO BID RF: 0 metoprolol tartrate 25 mg tablet 25 mg PO BID RF: 0 rosuvastatin 40 mg tablet 40 mg PO DAILY Qty: 90 RF: 3 escitalopram oxalate [Lexapro] 20 mg tablet 20 mg PO DAILY Qty: 90 RF: 3 trazodone 100 mg tablet 200 mg PO QHS Qty: 60 RF: 2 clopidogrel 75 mg tablet 75 mg PO DAILY Qty: 90 RF: 3 Changed tizanidine 4 MG tablet 4 mg PO TID PRN (Reason: muscle spasm/pain) Qty: 0 RF: 0 gabapentin 800 mg tablet 800 mg PO TID Qty: 0 RF: 0 Discontinued diphenhydramine HCl 25 MG capsule 50 mg PO QHS RF: 0 Referrals / Follow Up: Ana Oates MD [Primary Care Provider] - In 1 Week Michael Millan DPM [STAFF PHYSICIAN] - See Referral Note (As needed, call for appointment if continued right ankle pain) Marv Thapa MD [STAFF PHYSICIAN] - Within 2 Weeks (Will need outpatient stress test) Urszula Arboleda NP, GLASS OR MIRROR INSPECTOR-C [Nurse Practitioner] - Within 2 Weeks Disposition Disposition (needs filled in before D/C Order can be placed): Home, self care Charges/Coding Visit Charges Inpatient E&M: 15069 Disch Hosp Hospital Course Consultations Consultations: Consultations 08/30/20 13:21 Consult: Equipment Washer / Pulmonary Medicine Routine Consulting Provider: Ryne Kessler Reason for Consult: Respiratory acidosis, Hypercapnia, Suspected ALEN EMERGENT Consult: No Notified: Yes Date Notified:: 08/30/20 Time Notified: 13:21 Method of Notification: Text 08/30/20 13:42 Consult: Cardiology Routine Consulting Provider: Merritt Rashid Reason for Consult: NSTEMI, CAD EMERGENT Consult: No Notified: Yes Date Notified:: 08/30/20 Time Notified: 13:43 Method of Notification: Text Operations None
--- NOTE | 2020-09-01 13:23 | CASEMGMT ---
This RN CM to room to discuss discharge planning. Pt states no need for any further therapy at discharge. Pt states is going to stay with son tomorrow and plans to f/u with ortho sakina. Pt voices no further questions/concerns/needs. S[place]en MAMADOU DA SILVA
[2020-09-01] MEDS: cloNIDine HCl 0.2 MG Tablet PO (13:39)
== END 2020-09-01 15:20 | disposition home or self-care (01) | DRG 91 ==
LOC: ED 16:23 → MS3 16:53 → PCU 08-30 01:02 → ICU 08-30 19:01 → PCU 08-31 11:47
PROVIDERS: Nurse Practitioner Family; Admitting Provider Family Medicine; Emergency Provider Emergency Medicine; PCP Internal Medicine; Visit Provider Internal Medicine
DX: R29.6 Repeated falls (principal); J96.21 Acute and chronic respiratory failure with hypoxia; G93.41 Metabolic encephalopathy; I21.4 Non-ST elevation (NSTEMI) myocardial infarction; J96.22 Acute and chronic respiratory failure with hypercapnia; N17.9 Acute kidney failure, unspecified; E87.2 Acidosis; L03.115 Cellulitis of right lower limb; F11.20 Opioid dependence, uncomplicated; R74.01 Elevation of levels of liver transaminase levels; T79.6XXA Traumatic ischemia of muscle, initial encounter; J44.9 Chronic obstructive pulmonary disease, unspecified; I48.0 Paroxysmal atrial fibrillation; I25.10 Atherosclerotic heart disease of native coronary artery without angina pectoris; Z95.5 Presence of coronary angioplasty implant and graft; I10 Essential (primary) hypertension; E78.5 Hyperlipidemia, unspecified; F41.9 Anxiety disorder, unspecified; F32.9 Major depressive disorder, single episode, unspecified; F17.210 Nicotine dependence, cigarettes, uncomplicated; M19.90 Unspecified osteoarthritis, unspecified site; S82.831A Other fracture of upper and lower end of right fibula, initial encounter for closed fracture; S20.211A Contusion of right front wall of thorax, initial encounter; Z79.899 Other long term (current) drug therapy; W18.30XA Fall on same level, unspecified, initial encounter; Y93.89 Activity, other specified; Y92.89 Other specified places as the place of occurrence of the external cause; Y99.8 Other external cause status; Z79.02 Long term (current) use of antithrombotics/antiplatelets; Z68.38 Body mass index [BMI] 38.0-38.9, adult; E11.40 Type 2 diabetes mellitus with diabetic neuropathy, unspecified; G89.29 Other chronic pain; M54.9 Dorsalgia, unspecified; G47.00 Insomnia, unspecified; R42 Dizziness and giddiness; E66.01 Morbid (severe) obesity due to excess calories; T42.6X5A Adverse effect of other antiepileptic and sedative-hypnotic drugs, initial encounter; F10.11 Alcohol abuse, in remission
CPT/HCPCS: 36415; 36600; 70450; 71101; 73552; 73610; 76705; 80048; 80053; 82550; 82803; 82962; 83735; 84484; 85025; 85610; 87635; 93005; 93306; 94002; 94003; 94640; 96374; 96375; 97110; 97162; 97166; 97535; 99251; 99283; 99285; J7030; J7040; Q9957; U0005; A4216; C8929; G0463; J2405; J3490; U0003

== ENCOUNTER 2020-10-17 13:06 | Inpatient (IN) | payer MEDICARE, SELFPAY ==
[2020-10-12 11:31] VITALS: BMI 38.2
[2020-10-17] VITALS (14 sets, daily range): BP systolic 73–158; BP diastolic 43–126; PULSE 66–87; RESP 16–22; TEMP 36.6–37.1; O2SAT 77–95; BMI 34.8; BMI 34.5
--- NOTE | 2020-10-17 13:27 | RAD_ITS ---
STUDY: X-RAY - THORACIC SPINE REASON FOR EXAM: Female, 60 years old. fall TECHNIQUE: 3 view(s) of the thoracic spine were obtained. COMPARISON: 10/27/2019 FINDINGS: Normal kyphosis of the thoracic spine. There is no substantial scoliosis. There is demineralization of the thoracic spine with endplate spondylosis. There is multilevel disc space narrowing of the thoracic spine. No compression fracture. The soft tissue structures are unremarkable. RAD/Thoracic Spine 2 Views IMPRESSION: No demonstrated compression fracture. Degenerative changes. Electronically Signed: James Simeon MD ([place]) at 14:36 EDT , Service support ,
--- NOTE | 2020-10-17 13:27 | EKG12_ITS ---
Test Reason : FALL Blood Pressure : / mmHG Vent. Rate : 072 BPM Atrial Rate : 072 BPM P-R Int : 140 ms QRS Dur : 090 ms QT Int : 436 ms P-R-T Axes : 053 020 037 degrees QTc Int : 477 ms Normal sinus rhythm Normal ECG Confirmed by AMY MICHAEL, LEE ([id number]), telegraph editor DEREK RAY ([id number]) on 10/19/2020 10:10:02 AM Referred By: ISIDRO Confirmed By:LEE REYES MD
--- NOTE | 2020-10-17 13:28 | EX.ED.GENINJ ---
HPI History of Present Illness Chief Complaint: Fall Detail of Chief Complaint: Weakness and frequent falls Informant: patient Narrative Narrative: Patient presents to the emergency department with multiple complaints. Patient states that she started having watery stools 3 to 4 days ago. Patient remembers getting out of bed to try to get up out of bed in the middle of the night in the next thing she knew she woke up at the end of the bed. Patient then saw Dr. Fernandes her pain management doctor 3 days ago and had an episode of feeling very shaky and twitchy and was advised to come to the emergency department but she started feeling better so she just drove her self home. Patient states the diarrhea cleared up last night. She denies abdominal pain. She denies fevers. Patient generally feels weak and had an appointment to see her primary care physician today at 1 PM but did not feel like she could get down the steps of her home and make the appointment. Patient has had recent admission for falls and is following up with a neurologist. Patient complaining of back pain in the thoracic and lumbar region that is worse than usual. [facility] Medical History (Updated 10/17/20 @ 14:[address] Brent Venegas, ) LOVE (acute kidney injury) Atherosclerosis of [place] coronary artery of [place] heart without angina pectoris Essential (primary) hypertension Fracture tibia/fibula Generalized anxiety disorder with panic attacks Hyperlipidemia Low back pain Lump of breast, left Nicotine dependence NSTEMI (non-ST elevated myocardial infarction) (10/2016) Obesity (BMI 30-39.9) Osteoarthritis Paroxysmal atrial fibrillation Pneumonia Smoker Syncope and collapse UTI (urinary tract infection) Vision problems Home Medications aspirin 81 mg PO DAILY@0800 10/29/17 [History Last Taken 08/29/20] acetaminophen 1,000 mg PO BID 03/18/18 [History Last Taken 08/29/20] lisinopril 20 mg tablet 20 mg PO BID tab 05/09/20 [History Last Taken 08/29/20] rosuvastatin 40 mg tablet 40 mg PO DAILY #90 tab 05/17/20 [Rx Last Taken 08/28/20] escitalopram oxalate 20 mg tablet 20 mg PO DAILY #90 tab 06/20/20 [Rx Last Taken 08/29/20] trazodone 100 mg tablet 200 mg PO QHS #60 tab 08/01/20 [Rx Last Taken 08/28/20] clopidogrel 75 mg tablet 75 mg PO DAILY #90 tab 08/17/20 [Rx Last Taken 08/29/20] buspirone 10 mg tablet 20 mg PO TID tab 08/20/20 [History Last Taken 08/29/20] doxycycline monohydrate 100 mg PO BID #20 cap 08/28/20 [Rx Last Taken 08/28/20] hydrochlorothiazide 12.5 mg PO QODAY 08/28/20 [History Last Taken 08/28/20] hydrocodone-acetaminophen 1 tab PO TID 08/29/20 [History Last Taken 08/29/20] metoprolol tartrate 25 mg PO BID 08/29/20 [History Last Taken 08/29/20] metoprolol tartrate 50 mg PO BID 08/29/20 [History Last Taken 08/29/20] gabapentin 800 mg PO TID #0 tab 09/01/20 [Rx Last Taken 08/29/20] tizanidine 4 mg PO TID PRN #0 tab 09/01/20 [Rx Last Taken 08/29/20] albuterol sulfate 90 mcg/actuation aerosol inhaler 2 puff INHALATION Q6H PRN #18 gm 10/05/20 [Rx Last Taken Unknown] Allergy/AdvReac Type Severity Reaction Status Date / Time adhesive AdvReac Other Verified 10/17/20 13:13 baclofen AdvReac LETHARGY Verified 10/17/20 13:13 Family History Father Hypertension Bowel disease Heart disease Kidney disease Mother Hypertension Arthritis Bowel disease Colon cancer Heart disease High cholesterol Grandmother Arthritis Breast cancer Brain tumor Lung cancer Grandfather Myocardial infarction Surgical History H/O laminectomy History of colonoscopy History of coronary artery stent placement (11/17/16) History of left heart catheterization History of splenectomy History of total right hip replacement Hx of bone graft (2014) S/P ORIF (open reduction internal fixation) fracture Social History Smoking Status: Current every day smoker tobacco type: cigarettes Tobacco: How many years used: 35 alcohol intake: current alcohol intake frequency: holidays/special occasions only Alcohol type: hard liquor substance use type: former substance user Date of last use: 20 years ago and marijuana caffeine: Yes Type: carbonated beverages and coffee what type of physical activity do you participate in: other details: Physical Therapy frequency: 3-4 times per week seatbelt use: always do you feel safe at home: Yes ROS ROS ED ROS Narrative Weakness and frequent falls Constitutional Constitutional ED: Reports systems reviewed and no addt'l complaints, except as documented; Denies body ache(s), change in weight or chills Eyes Eyes: Denies acute decrease in peripheral vision, change in vision, double vision or loss of vision ENT ENT ED: Reports none; Denies ear pain, lip swelling, loss taste/smell, neck pain, otalgia or sore throat Cardiovascular Cardiovascular: Reports none; Denies abdominal pain, chest pain with activity, leg edema, lightheadedness, palpitations, rapid heart rate or syncope Respiratory/Chest Respiratory/Chest: Reports none; Denies change in mental status, dry cough, dyspnea, hemoptysis, shortness of breath at rest or shortness of breath with exertion Gastrointestinal Gastrointestinal: Reports none and diarrhea; Denies abdominal pain, change in stool character, hematemesis, hematochezia, melena, rectal bleeding or vomiting Genitourinary Genitourinary ED: Reports none; Denies abdominal discomfort, anuria, dysuria, genital pain or polyuria Musculoskeletal Musculoskeletal: Reports none and back pain; Denies arthralgias, difficulty walking, extremity pain, muscle weakness or myalgias Integumentary Reports none; Denies abscess or rash Neurologic Neurologic: Reports none; Denies abnormal gait, confusion, focal weakness, frequent falls, headache(s), loss of vision, numbness, paresthesias, radicular pain, vertigo or weakness Psychiatric Psychiatric: Reports systems reviewed and no addt'l complaints, except as documented and none; Denies behavioral changes, confusion, difficulty concentrating, hallucinations, suicidal ideation, tactile hallucinations or visual hallucinations Endocrine Endocrinology: Denies none, cold intolerance, excessive sweating, fatigue or heat intolerance Hematologic/Lymphatic Hematologic/Lymphatic: Reports none; Denies anemia, easy bleeding or easy bruising Allergic/Immunologic Allergic/Immunologic ED: Denies as per HPI, none, lip swelling, mouth swelling, throat swelling, tongue swelling or hives EXAM Physical Exam Const Vital Signs: 10/17/20 13:07 10/17/20 13:10 10/17/20 13:49 Temperature 98 F Temperature Source Oral Pulse Rate 76 Respiratory Rate 16 Respiratory Effort Normal Respiratory Depth Normal Respiratory Pattern Normal Blood Pressure 113/101 H 99/85 H Blood Pressure Mean 105 89 Pulse Ox 92 Oxygen Delivery Method Room Air Oxygen Flow Rate (L/min) 10/17/20 14:04 10/17/20 14:07 Temperature Temperature Source Pulse Rate Respiratory Rate Respiratory Effort Respiratory Depth Respiratory Pattern Blood Pressure Blood Pressure Mean Pulse Ox 77 90 Oxygen Delivery Method Room Air Nasal Cannula Oxygen Flow Rate (L/min) 3 Positive well nourished and well developed General Appearance ED: well developed and NAD HEENT Reports TM's clear and moist mucous membranes normocephalic and atraumatic; Negative for trauma or tenderness Tympanic Membrane ED: Yes TM's clear Eyes PERRL and EOMs intact bilaterally General Eye ED: Negative for pale conjunctiva or scleral icterus Neck no lymphadenopathy, supple and no JVD General: Negative for tenderness Chest Wall inspection of chest normal and palpation of chest normal Chest: Negative for tenderness Resp normal respiratory effort and clear to auscultation bilaterally Effort and Inspection: Negative for respiratory distress or pain with movement Auscultation: Negative for rhonchi, wheezes or diminished lung sounds Cardio regular rate, regular rhythm, S1 normal heart sound, S2 normal heart sound and no murmurs Peripheral Pulses: pulses 2+ throughout GI normal to inspection, nondistended, normoactive bowel sounds, soft to palpation, non-tender, non-distended and no masses Back/Spine no CVA tenderness Back/Spine Narrative: Diffuse tenderness to the thoracic and lumbar spine. There is no ecchymosis or bruising. Negative straight leg raises. Extremity normal to inspection General Extremety ED: Negative for edema General Extremity: Negative for edema Neuro oriented x3, CN's II-XII intact bilaterally, no sensory deficits noted and gait normal Sensorium / Orientation: awake, alert, oriented to person, oriented to place and oriented to time Motor Exam: strength 5/5 throughout and strength abnormal Psych mental status grossly normal Skin no rashes or lesions noted and no wounds MDM MDM MDM Narrative Medical decision making narrative: Patient noted to have acute kidney injury and hyponatremia. She was given a liter normal same fluid bolus followed by a second liter Lab Data Attestation: I reviewed the patient's lab results. Labs: Laboratory Results - last 24 hr 10/17/20 10/17/20 13:50 13:50 WBC 8.3 RBC 5.23 Hgb 14.6 Hct 44.5 MCV 85.1 MCH 27.9 MCHC 32.8 RDW Std Deviation 50.8 H RDW Coeff of Aleksandar 16.4 H Plt Count 224 MPV 10.6 Immature Gran % (Auto) 0.600 Neut % (Auto) 73.5 H Lymph % (Auto) 16.9 L [place] % (Auto) 8.2 Eos % (Auto) 0.4 Baso % (Auto) 0.4 Absolute Neuts (auto) 6.1 Absolute Lymphs (auto) 1.41 Nucleated RBC % 0 Sodium 118 L* Potassium 4.5 Chloride 82 L Carbon Dioxide 19.0 L Anion Gap 17 H BUN 65 H Creatinine 7.37 H Estim Creat Clear Calc 7.40 Est GFR (MDRD) Af Amer 7 L Est GFR (MDRD) Non-Af 6 L BUN/Creatinine Ratio 8.8 L Glucose 108 H Calcium 7.7 L Total Bilirubin 0.30 AST 28 ALT 19 Alkaline Phosphatase 99 Troponin I High Sens 36.3 Total Protein 7.2 Albumin 2.9 L Globulin 4.3 H Albumin/Globulin Ratio 0.7 L Radiography Diagnostic Testing: Radiology Impression Thoracic Spine X-Ray 10/17/20 13:27 IMPRESSION: No demonstrated compression fracture. Degenerative changes. Electronically Signed: James Simeon MD ([place]) at 14:36 EDT , Service support , Lumbar Spine X-Ray 10/17/20 14:10 IMPRESSION: Degenerative changes. No compression fracture. Electronically Signed: James Simeon MD ([place]) at 14:37 EDT , Service support , EKG Initial EKG: Attestation: I personally reviewed and interpreted this EKG as follows: Comments: Rhythm with a ventricular rate of 72 bpm with no acute ST segment changes. Prior EKG tracings: available for review Prior: Unchanged Discharge Plan Triage Chief Complaint: Fall ED Provider: Ungur,Remus Dx/Rx/DC Orders Clinical Impression: Acute hyponatremia, Acute kidney injury, Acute dehydration, Frequent falls, Acute exacerbation of chronic low back pain Prescriptions: No Action lisinopril 20 mg tablet 20 mg PO BID RF: 0 aspirin 81 MG tablet 81 mg PO DAILY@0800 RF: 0 acetaminophen 500 MG tablet 1,000 mg PO BID RF: 0 buspirone 10 mg tablet 20 mg PO TID RF: 0 hydrochlorothiazide 12.5 mg tablet 12.5 mg PO QODAY RF: 0 doxycycline monohydrate 100 MG capsule 100 mg PO BID Qty: 20 RF: 0 hydrocodone-acetaminophen 7.5-325 mg tablet 1 tab PO TID RF: 0 metoprolol tartrate 50 mg tablet 50 mg PO BID RF: 0 metoprolol tartrate 25 mg tablet 25 mg PO BID RF: 0 tizanidine 4 MG tablet 4 mg PO TID PRN (Reason: muscle spasm/pain) Qty: 0 RF: 0 gabapentin 800 mg tablet 800 mg PO TID Qty: 0 RF: 0 rosuvastatin 40 mg tablet 40 mg PO DAILY Qty: 90 RF: 3 escitalopram oxalate [Lexapro] 20 mg tablet 20 mg PO DAILY Qty: 90 RF: 3 trazodone 100 mg tablet 200 mg PO QHS Qty: 60 RF: 2 clopidogrel 75 mg tablet 75 mg PO DAILY Qty: 90 RF: 3 albuterol sulfate 90 mcg/actuation HFA aerosol inhaler 2 puff INHALATION Q6H PRN (Reason: shortness of breath or wheezing) Qty: 18 RF: 2 Primary Care Provider: Ana Oates Referrals: Ana Oates MD [Primary Care Provider] - Disposition Disposition: Acute Care Hospital [facility]
[2020-10-17] MEDS: Ondansetron 4 MG/2 ML Vial IV (13:46)
[2020-10-17] MEDS: 0.9% Normal Saline 1,000 ML 150 ML IV (13:46)
[2020-10-17 13:54] LABS: Absolute Lymphocyte Count 1.41 X10^3/uL (0.83-4.51); Absolute Neutrophil Count 6.1 X10^3/uL (2.0-7.7); Basophil# 0.03 X10^3/uL; Basophil% 0.4 % (0-1); Eosinophil# 0.03 X10^3/uL; Eosinophils% 0.4 % (0-5); Hematocrit 44.5 % (37-47); Hemoglobin 14.6 g/dL (12.0-15.0); Lymphocyte # 1.41 X10^3/ul (0.83-4.51); Lymphocyte % 16.9 % (19-41); Mean Corp Hgb Conc 32.8 g/dL (32-36); Mean Corpuscular Hgb 27.9 pg (27.0-32.0); Mean Corpuscular Volume 85.1 fL (81-99); Mean Platelet Vol. 10.6 fl (6.2-12.0); Monocyte# 0.68 X10^3/uL; Monocyte% 8.2 % (0-10); NRBC Flagged by Analyzer 0 % (0-5); Neutrophil # 6.14 X10^3/uL (2.7-7.7); Neutrophil % 73.5 % (47-70); Platelet Count 224 K/mm3 (150-450); RBC Distribution Width CV 16.4 % (11.6-14.6); RBC Distribution Width SD 50.8 fl (35.1-43.9); Red Blood Count 5.23 M/mm3 (4.2-5.4); White Blood Count 8.3 K/mm3 (4.4-11.0)
[2020-10-17] MEDS: fentaNYL 100 MCG/2 ML Ampul IV (13:58)
[2020-10-17] MEDS: 0.9% Normal Saline 1,000 ML 999 ML IV ×2 (14:00→15:26)
--- NOTE | 2020-10-17 14:10 | RAD_ITS ---
STUDY: X-RAY - LUMBAR SPINE REASON FOR EXAM: Female, 60 years old. fall TECHNIQUE: 3 view(s) of the lumbar spine were obtained. COMPARISON: 06/22/2018 FINDINGS: Normal lumbar lordosis. There is no substantial scoliosis. There is a normal alignment of the vertebrae. There is diffuse demineralization with multi-level endplate spondylosis. There is multi-level degenerative disc disease with multi-level disc space narrowing. There is no demonstrated fracture. Multilevel facet arthropathy. There is atherosclerotic calcification of the abdominal aorta without a demonstrated aneurysm. RAD/Lumbar Spine 2 or 3 Views IMPRESSION: Degenerative changes. No compression fracture. Electronically Signed: James Simeon MD ([place]) at 14:37 EDT , Service support ,
[2020-10-17 14:18] LABS: ALB/GLOB Ratio 0.7 RATIO (0.9-2.4); AST(SGOT) 28 U/L (15-37); Alanine Aminotransfer ALT/SGPT 19 U/L (13-56); Albumin, Serum 2.9 g/dL (3.2-5.0); Alkaline Phosphatase 99 U/L (45-117); Anion Gap 17 (5-15); BUN 65 mg/dL (7-18); BUN/Creat Ratio 8.8 RATIO (10-20); Calcium,Total 7.7 mg/dL (8.5-10.1); Chloride 82 mmol/L (98-107); Creatinine, Serum 7.37 mg/dL (0.55-1.02); EST Glomerular Filtration Rate 6 mL/min (>60); Est Glom Filt Rate - Afr Amer 7 mL/min (>60); Globulin 4.3 g/dL (2.2-4.2); Glucose 108 mg/dL (74-106); Potassium 4.5 mmol/L (3.5-5.1); Protein, Total 7.2 g/dL (6.4-8.2); Sodium Level 118 mmol/L (136-145); Troponin-I HS 36.3 pg/mL (3.0-53.7)
--- NOTE | 2020-10-17 14:52 | NURSING ---
PCU TONY LOVE, HYPONATREMIA, FREQUENT FALLS, BACK PAIN
--- NOTE | 2020-10-17 15:19 | CT_ITS ---
STUDY: CT ABDOMEN AND PELVIS WITHOUT CONTRAST REASON FOR EXAM: Female, 60 years old. abdominal pain RADIATION DOSAGE (If Supplied By Facility): CTDIvol = ( 27.03 ) mGy, DLP = ( 1215.46 ) mGycm TECHNIQUE: Transaxial images were obtained from the dome of the diaphragm to the symphysis pubis without oral contrast, and without intravenous contrast. Sagittal and coronal images were reconstructed. Individualized dose optimization techniques were used for this CT. COMPARISON: 08/12/2017 FINDINGS: There are chronic interstitial fibrotic changes of the lung bases. The visualized portions of the heart are within normal limits. Normal liver. Normal gallbladder and extrahepatic biliary system. Small calcification adjacent to the lateral spleen capsule is stable, doubtful significance. Normal pancreas. Normal bilateral adrenal glands. Normal right kidney. Normal left kidney. Normal visualized stomach. Normal small intestine. There are multiple colonic diverticula consistent with diverticulosis. The appendix is visualized and appears normal. There is diffuse atherosclerotic calcification of the abdominal aorta with elongation and tortuosity, but without a demonstrated aneurysm. Normal inferior vena cava. Normal retroperitoneum. Urinary bladder decompressed by Roland catheter. Right hip replacement causes moderate spray artifact. Uterus is surgically absent. Normal abdominal wall. No destructive bony process. CT/Abdomen/Pelvis without Cont IMPRESSION: 1. No acute inflammatory process or bowel obstruction. 2. No hydronephrosis. 3. Urinary bladder decompressed by Roland catheter. Electronically Signed: James Simeon MD ([place]) at 15:51 EDT , Service support ,
[2020-10-17 15:32] LABS: Mucous, Urine 0 SEEN /hpf (<or=2+); Red Blood Cells-Urine 0 SEEN /hpf (0-5)
[2020-10-17 15:39] LABS: Color, Urine Yellow (Yellow); Glucose, Dipstick Normal (Normal); Ketone-Dipstick 5 mg/dl (Negative); Leukocyte Esterase-Dipstick 25 /ul (Negative); Nitrite-Dipstick Negative (Negative); Occult Blood-Urine 10 /ul (Negative); Protein-Dipstick 30 mg/dl (Negative); Urine Clarity Clear (Clear); Urine Urobilinogen 1 mg/dl (Normal)
[2020-10-17 15:40] LABS: Urine Bilirubin Dipstick 3 mg/dL (Negative)
[2020-10-17 15:47] LABS: Bacteria RARE /hpf (None Seen); Squamous Epithelial Cells - UA 0-5 SEEN /hpf (5-10); White Blood Cells 0-5 SEEN /hpf (0-5)
--- NOTE | 2020-10-17 16:00 | ED.RN ---
PT said that she had her ring on when she went to CT. Pt states that the ring is missing. It is a gold band with [address] was [address] and they do not have the ring but they will check in the linens. Pt is aware. Pt also was asking for more pain meds and her last dose was 2 hours ago with significant pulse ox drop with the fentanyl. PT was advised no more meds at this time
[2020-10-17] MEDS: 0.45% Normal Saline 1,000 ML 200 ML IV ×2 (16:47→21:40)
--- NOTE | 2020-10-17 17:03 | HP.PCM.HOS_ITS ---
HPI - General General Date of Admission: 10/17/20 HPI Narrative JOHANA YBARRA, is a 60 F who presented to the emergency department [facility] on 10/17/2020 with multiple complaints. She reported that she began having watery stools 3 to 4 days prior to presentation and was taking boat loads of Imodium to make it stop. She denies any recent antibiotic use and states actually the diarrhea has ceased in the last 24 hours. She denies any nausea or vomiting. She is currently denying any abdominal pain, fevers, chills. She does states she feels very weak and actually had an appointment with her PCP at 1:00 today but did not feel she could get down the steps to go to her appointment and therefore she called the squad. She has frequent falls and follows with a neurologist for this. She also has chronic low back pain and follows with Dr. Fernandes for pain management. She reports she has not urinated since Thursday morning. She is a complex past medical history as noted below. Her vital signs on presentation show that she is afebrile with a blood pressure of 101/86, respiratory rate 16 and she satting 95% on 2 L nasal cannula at the present time but on presentation she was 77% on room air but this was after she was given 100 of fentanyl. She has no pulmonary complaints at this time. Her CBC is unremarkable. Her BMP shows hyponatremia with a sodium of 118, hypochloremia with a chloride of 82, serum bicarb of 19, and anion gap of 17, BUN of 65, and a serum creatinine of 7.37. Her baseline serum creatinine is 0.7-1. Her bilirubin is within normal limits and her liver enzymes are within normal limits. High-sensitivity troponin was performed and is within normal limits. Her UA is markedly concentrated with a specific gravity of 1.030 but s hows no signs of infection. Thoracic and lumbar spine x-rays were performed and show no acute processes and only degenerative changes. Given her LOVE and her lack of urine output a CT of her abdomen pelvis was performed and shows no hydronephrosis, no acute inflammatory processes and a decompressed bladder. She did have some diffuse atherosclerotic calcification in her abdominal vasculature and chronic interstitial fibrotic changes in the lung bases. She was treated with IV fluids and had a Roland placed. She was admitted to PCU. [facility] Medical History (Updated 10/17/20 @ 17:[address] Jessica Sidhu, DO) LOVE (acute kidney injury) Atherosclerosis of [place] coronary artery of [place] heart without angina pectoris Essential (primary) hypertension Fracture tibia/fibula Generalized anxiety disorder with panic attacks Hyperlipidemia Low back pain Lump of breast, left Myocardial infarct Nicotine dependence NSTEMI (non-ST elevated myocardial infarction) (10/2016) Obesity (BMI 30-39.9) Osteoarthritis Paroxysmal atrial fibrillation Pneumonia Smoker Syncope and collapse UTI (urinary tract infection) Vision problems Home Medications aspirin 81 mg PO DAILY@0800 10/29/17 [History Last Taken 10/17/20] acetaminophen 1,000 mg PO BID 03/18/18 [History Last Taken 10/14/20] lisinopril 20 mg tablet 20 mg PO BID tab 05/09/20 [History Last Taken 10/17/20] rosuvastatin 40 mg tablet 40 mg PO DAILY #90 tab 05/17/20 [Rx Last Taken 10/17/20] trazodone 100 mg tablet 200 mg PO QHS #60 tab 08/01/20 [Rx Last Taken 10/16/20] clopidogrel 75 mg tablet 75 mg PO DAILY #90 tab 08/17/20 [Rx Last Taken ] buspirone 10 mg tablet 20 mg PO TID tab 08/20/20 [History Last Taken 10/17/20] hydrochlorothiazide 12.5 mg PO QODAY 08/28/20 [History Last Taken 10/17/20] hydrocodone-acetaminophen 1 tab PO TID 08/29/20 [History Last Taken 10/17/20] metoprolol tartrate 50 mg PO BID 08/29/20 [History Last Taken 10/17/20] tizanidine 4 mg PO TID PRN #0 tab 09/01/20 [Rx Last Taken 10/17/20] albuterol sulfate 90 mcg/actuation aerosol inhaler 2 puff INHALATION Q6H PRN #18 gm 10/05/20 [Rx Last Taken 10/17/20] escitalopram oxalate [Lexapro] 20 mg PO DAILY 10/17/20 [History Last Taken 10/17/20] gabapentin 800 mg PO 4X/DAY 10/17/20 [History Last Taken 10/17/20] Allergy/AdvReac Type Severity Reaction Status Date / Time adhesive AdvReac Other Verified 10/17/20 13:13 baclofen AdvReac LETHARGY Verified 10/17/20 13:13 Family History Father Hypertension Bowel disease Heart disease Kidney disease Mother Hypertension Arthritis Bowel disease Colon cancer Heart disease High cholesterol Grandmother Arthritis Breast cancer Brain tumor Lung cancer Grandfather Myocardial infarction Surgical History H/O laminectomy History of colonoscopy History of coronary artery stent placement (11/17/16) History of left heart catheterization History of splenectomy History of total right hip replacement Hx of bone graft (2014) S/P ORIF (open reduction internal fixation) fracture Social History Smoking Status: Current every day smoker tobacco type: cigarettes Tobacco: How many years used: 35 alcohol intake: current alcohol intake frequency: holidays/special occasions only Alcohol type: hard liquor substance use type: former substance user Date of last use: 20 years ago and marijuana caffeine: Yes Type: carbonated beverages and coffee what type of physical activity do you participate in: other details: Physical Therapy frequency: 3-4 times per week seatbelt use: always do you feel safe at home: Yes ROS Constitutional Constitutional: Reports weakness; Denies anorexia, change in weight, chills, fatigue, fever(s), malaise, night sweats or other Eyes Eyes: Denies blurry vision, change in eye color, change in vision, discharge from eye(s), double vision, erythema, eye pain, loss of vision or other ENT HEENT: Denies abnormal hearing, dysphagia, ear pain, epistaxis, headache(s), hearing loss, nasal congestion, nasal discharge, post nasal drip, sinus pressure, sore throat or other Cardiovascular Cardiovascular: Reports lightheadedness and rapid heart rate; Denies chest pain, claudication, dyspnea on exertion, edema, orthopnea, palpitations, paroxysmal nocturnal dyspnea, syncope or other Respiratory/Chest Respiratory/Chest: Reports cough and other Details: Cough is chronic and nonproductive Gastrointestinal Gastrointestinal: Reports diarrhea and other Details: Diarrhea has now resolved ; Denies abdominal pain, coffee ground emesis, constipation, dyspepsia, hematemesis, hematochezia, loose stools, melena, nausea or vomiting Genitourinary Genitourinary: Reports other Details: Poor urine output ; Denies burning urination, difficulty urinating, dysuria, hematuria, nocturia, urinary frequency, urinary hesitancy, urinary incontinence or urinary urgency Musculoskeletal Musculoskeletal: Reports arthralgias, back pain, joint pain, neck pain and other Details: All joint complaints are chronic Neurologic Neurologic: Reports abnormal gait; Denies abnormal speech, confusion, disequilibrium, dizziness, focal weakness, headache(s), numbness, paresthesias, seizure-like activity, seizures, syncope, tingling, tremor(s) or other Psychiatric Psychiatric: Denies anxiety, depression, homicidal ideation, suicidal ideation or other Endocrine Endocrinology: Denies change in body appearance, cold intolerance, excessive sweating, heat intolerance, polydipsia, polyuria or other Hematologic/Lymphatic Hematologic/Lymphatic: Denies anemia, easy bleeding, easy bruising, lymphadenopathy or other Allergic/Immunologic Allergic/Immunologic: Denies rhinitis, hives, eczemia, asthma or other Vital Signs Vital Signs Vital Signs: 10/17/20 13:07 10/17/20 13:10 10/17/20 13:49 Temperature 98 F Temperature Source Oral Pulse Rate 76 Pulse Rate [Lying] Pulse Rate [Sitting] Respiratory Rate 16 Respiratory Effort Normal Respiratory Depth Normal Respiratory Pattern Normal Blood Pressure 113/101 H 99/85 H Blood Pressure [Lying] Blood Pressure [Sitting] Blood Pressure Mean 105 89 Blood Pressure Mean [Lying] Blood Pressure Mean [Sitting] Blood Pressure Source Blood Pressure Position Blood Pressure Location Pulse Ox 92 Oxygen Delivery Method Room Air Oxygen Flow Rate (L/min) 10/17/20 14:04 10/17/20 14:07 10/17/20 15:22 Temperature Temperature Source Pulse Rate Pulse Rate [Lying] 78 Pulse Rate [Sitting] 82 Respiratory Rate Respiratory Effort Respiratory Depth Respiratory Pattern Blood Pressure Blood Pressure [Lying] 73/43 L Blood Pressure [Sitting] 158/126 H Blood Pressure Mean Blood Pressure Mean [Lying] 53 Blood Pressure Mean [Sitting] 136 Blood Pressure Source Blood Pressure Position Blood Pressure Location Pulse Ox 77 90 Oxygen Delivery Method Room Air Nasal Cannula Oxygen Flow Rate (L/min) 3 10/17/20 15:33 10/17/20 16:17 Temperature 98 F 98.7 F Temperature Source Oral Oral Pulse Rate 76 66 Pulse Rate [Lying] Pulse Rate [Sitting] Respiratory Rate 16 16 Respiratory Effort Respiratory Depth Respiratory Pattern Blood Pressure 99/85 H 101/86 H Blood Pressure [Lying] Blood Pressure [Sitting] Blood Pressure Mean 89 91 Blood Pressure Mean [Lying] Blood Pressure Mean [Sitting] Blood Pressure Source Monitor Blood Pressure Position Semi-Fowlers Blood Pressure Location Right Arm Pulse Ox 90 95 Oxygen Delivery Method Nasal Cannula Nasal Cannula Oxygen Flow Rate (L/min) 3 5 Weight Weight: 94.2 kg Body Mass Index (BMI) 34.5 Physical Exam Const alert, oriented x3 and no apparent distress Constitutional Narrative: Obese white female lying in bed having a Roland placed by nursing, appears nontoxic and in no distress General Appearance: cooperative HEENT head/scalp atraumatic HEENT Narrative: Mucous membranes are dry, teeth with nicotine stains, Mallampati 2 Eyes PERRL, EOMs intact bilaterally and conjunctivae normal Neck no lymphadenopathy, supple, no JVD and no carotid bruits Resp normal respiratory effort, no retractions and no use of accessory muscles Resp Narrative: Diffusely diminished with scattered end expiratory wheeze Auscultation: wheezes; Negative for crackles, rales or rhonchi Cardio regular rhythm, S1 normal heart sound, S2 normal heart sound, no murmurs, no rub, no gallops, no clicks and no JVD Cardio Narrative: Sinus tachycardia GI normal to inspection, nondistended, normoactive bowel sounds, soft to palpation, non-tender and non-distended Auscultation: Negative for hyperactive bowel sounds or hypoactive bowel sounds Palpation: Negative for tender, guarding or hernia Extremity normal to inspection, full ROM and no clubbing, cyanosis or edema Peripheral Pulses: Yes pulses 2+ throughout Skin no rashes or lesions noted, no wounds, skin turgor normal, no jaundice, no petechiae and no mottling Neuro oriented x3, CN's II-XII intact bilaterally and moves all extremities Neuro Narrative: Generalized weakness Sensorium / Orientation: awake, alert, oriented to person, oriented to place and oriented to time Speech: speech normal Psych Psych Narrative: Calm and agreeable Results Lab / Micro Data Attestation: I reviewed the patient's lab results. Result Diagrams: 10/17/20 13:50 10/17/20 13:50 Labs: Laboratory Results - last 24 hr 10/17/20 13:50: WBC 8.3, RBC 5.23, Hgb 14.6, Hct 44.5, MCV 85.1, MCH 27.9, MCHC 32.8, RDW Std Deviation 50.8 H, RDW Coeff of Aleksandar 16.4 H, Plt Count 224, MPV 10.6, Immature Gran % (Auto) 0.600, Neut % (Auto) 73.5 H, Lymph % (Auto) 16.9 L, [place] % (Auto) 8.2, Eos % (Auto) 0.4, Baso % (Auto) 0.4, Absolute Neuts (auto) 6.1, Absolute Lymphs (auto) 1.41, Nucleated RBC % 0 10/17/20 13:50: Sodium 118 L*, Potassium 4.5, Chloride 82 L, Carbon Dioxide 19.0 L, Anion Gap 17 H, BUN 65 H, Creatinine 7.37 H, Estim Creat Clear Calc 7.40, Est GFR (MDRD) Af Amer 7 L, Est GFR (MDRD) Non-Af 6 L, BUN/Creatinine Ratio 8.8 L, Glucose 108 H, Calcium 7.7 L, Total Bilirubin 0.30, AST 28, ALT 19, Alkaline Phosphatase 99, Troponin I High Sens 36.3, Total Protein 7.2, Albumin 2.9 L, Globulin 4.3 H, Albumin/Globulin Ratio 0.7 L 10/17/20 15:27: Urine Color Yellow, Urine Clarity Clear, Urine pH 5.0, Ur Specific [place] 1.030, Urine Protein 30 H, Urine Glucose (UA) Normal, Urine Ketones 5 H, Urine Occult Blood 10 H, Urine Nitrite Negative, Urine Bilirubin 3 H, Urine Urobilinogen 1 H, Ur Leukocyte Esterase 25 H, Urine RBC 0 SEEN, Urine WBC 0-5 SEEN, Ur Squamous Epith Cells 0-5 SEEN, Urine Bacteria RARE, Urine Mucus 0 SEEN Radiology Impression Thoracic Spine X-Ray 10/17/20 13:27 IMPRESSION: No demonstrated compression fracture. Degenerative changes. Electronically Signed: James Simeon MD ([place]) at 14:36 EDT , Service support , Lumbar Spine X-Ray 10/17/20 14:10 IMPRESSION: Degenerative changes. No compression fracture. Electronically Signed: James Simeon MD (Bro[place]) at 14:37 EDT , Service support , Abdomen/Pelvis CT 10/17/20 15:19 IMPRESSION: 1. No acute inflammatory process or bowel obstruction. 2. No hydronephrosis. 3. Urinary bladder decompressed by Roland catheter. Electronically Signed: James Simeon MD ([place]) at 15:51 EDT , Service support , Assessment & Plan Assessment/Plan (1) Acute hyponatremia: (2) Acute kidney injury: (3) High anion gap metabolic acidosis: (4) Dehydration: PLAN: Severe acute kidney injury -Baseline serum creatinine is between 0.7 and 1 -Serum creatinine on admission is 7.37 -No current needs for emergent dialysis his electrolytes are stable other than sodium -UA consistent with severe dehydration given a specific gravity of 1.03 -Hydration with half-normal saline at this time given severity of hyponatremia -We will check serial BMPs -Defer further work-up for LOVE at this time until IV hydration has been pursued -No improvement in the morning would suggest urine lytes and retroperitoneal ultrasound -CT of the abdomen pelvis shows no signs of hydronephrosis -Continue Roland -Avoid nephrotoxins -Decrease gabapentin to 300 mg 4 times daily from 800 mg 4 times daily -Stop hydrochlorothiazide -Stop lisinopril -If does not improve consider nephrology consult Anion gap metabolic acidosis secondary to LOVE -Serum bicarb is 19. Anion gap 17 -Serial BMPs -Expect this to resolve as serum creatinine improves -Patient is currently well compensated Acute hyponatremia -Most likely related to hypovolemia -Continue half-normal saline at this time as patient needs higher volumes for LOVE but do not want sodium to increase greater than 12 mEq in the next 24 hours -BMP every 4 hours--> adjust fluids accordingly CAD/hypertension/hyperlipidemia -Continue aspirin, Plavix, metoprolol, Crestor -Hold HCTZ, lisinopril -History of cardiac stents remotely COPD -Continue as needed albuterol inhalers -Continue supplemental oxygen and wean as able -Avoid overmedicating Depression/anxiety -Continue home medications Chronic pain -Continue muscle relaxant, scheduled hydrocodone, Tylenol -Continue gabapentin but at reduced dose given renal failure at this time DVT prophylaxis Heparin 3 times daily CODE STATUS -Full code Charges/Coding Visit Charges Inpatient E&M: 35147 Init Hosp L3
[2020-10-17] MEDS: Gabapentin 300 MG Capsule PO (17:56)
[2020-10-17 20:38] LABS: Anion Gap 15 (5-15); BUN 63 mg/dL (7-18); BUN/Creat Ratio 8.9 RATIO (10-20); Chloride 87 mmol/L (98-107); Creatinine, Serum 7.05 mg/dL (0.55-1.02); EST Glomerular Filtration Rate 6 mL/min (>60); Est Glom Filt Rate - Afr Amer 8 mL/min (>60); Estimated Creatinine Clearance 7.73 ml/min; Glucose 105 mg/dL (74-106); Potassium 4.5 mmol/L (3.5-5.1); Sodium Level 121 mmol/L (136-145)
[2020-10-17] MEDS: Heparin Injection (Vial) 5,000 UNIT/ML VIAL 5000 UNIT SC (22:11)
[2020-10-17] MEDS: Atorvastatin Calcium 80 MG Tablet PO (22:13)
[2020-10-17] MEDS: Acetaminophen 500 MG Tablet 1000 MG PO (22:36)
[2020-10-18] VITALS (16 sets, daily range): BP systolic 85–140; BP diastolic 52–92; PULSE 76–168; RESP 12–18; TEMP 36.8–36.9; O2SAT 84–96
[2020-10-18 00:23] LABS: Anion Gap 13 (5-15); BUN 66 mg/dL (7-18); BUN/Creat Ratio 9.3 RATIO (10-20); Calcium,Total 6.8 mg/dL (8.5-10.1); Chloride 89 mmol/L (98-107); Creatinine, Serum 7.09 mg/dL (0.55-1.02); EST Glomerular Filtration Rate 6 mL/min (>60); Est Glom Filt Rate - Afr Amer 8 mL/min (>60); Estimated Creatinine Clearance 7.69 ml/min; Glucose 92 mg/dL (74-106); Potassium 4.7 mmol/L (3.5-5.1); Sodium Level 120 mmol/L (136-145)
[2020-10-18] MEDS: 0.9% Normal Saline 1,000 ML 200 ML IV ×5 (02:53→22:44)
[2020-10-18 03:50] LABS: Absolute Lymphocyte Count 1.66 X10^3/uL (0.83-4.51); Absolute Neutrophil Count 6.3 X10^3/uL (2.0-7.7); Basophil# 0.03 X10^3/uL; Basophil% 0.3 % (0-1); Eosinophil# 0.06 X10^3/uL; Eosinophils% 0.7 % (0-5); Hematocrit 41.7 % (37-47); Hemoglobin 13.4 g/dL (12.0-15.0); Lymphocyte # 1.66 X10^3/ul (0.83-4.51); Mean Corp Hgb Conc 32.1 g/dL (32-36); Mean Corpuscular Hgb 28.2 pg (27.0-32.0); Mean Corpuscular Volume 87.8 fL (81-99); Mean Platelet Vol. 11.2 fl (6.2-12.0); Monocyte# 1.04 X10^3/uL; Monocyte% 11.3 % (0-10); NRBC Flagged by Analyzer 0 % (0-5); Neutrophil # 6.33 X10^3/uL (2.7-7.7); Neutrophil % 68.8 % (47-70); Platelet Count 203 K/mm3 (150-450); RBC Distribution Width CV 16.5 % (11.6-14.6); RBC Distribution Width SD 53.2 fl (35.1-43.9); Red Blood Count 4.75 M/mm3 (4.2-5.4); White Blood Count 9.2 K/mm3 (4.4-11.0)
[2020-10-18 04:19] LABS: AST(SGOT) 24 U/L (15-37); Alanine Aminotransfer ALT/SGPT 18 U/L (13-56); Albumin, Serum 2.5 g/dL (3.2-5.0); Alkaline Phosphatase 90 U/L (45-117); Anion Gap 15 (5-15); BUN 64 mg/dL (7-18); BUN/Creat Ratio 8.8 RATIO (10-20); Calcium,Total 6.6 mg/dL (8.5-10.1); Chloride 86 mmol/L (98-107); Creatinine, Serum 7.24 mg/dL (0.55-1.02); EST Glomerular Filtration Rate 6 mL/min (>60); Est Glom Filt Rate - Afr Amer 7 mL/min (>60); Estimated Creatinine Clearance 7.53 ml/min; Globulin 3.4 g/dL (2.2-4.2); Glucose 88 mg/dL (74-106); Magnesium 2.5 mg/dL (1.6-2.6); Phosphorus 9.6 mg/dL (2.5-4.9); Potassium 4.5 mmol/L (3.5-5.1); Protein, Total 5.9 g/dL (6.4-8.2); Sodium Level 120 mmol/L (136-145)
[2020-10-18] MEDS: HYDROcodone Bitartrate/Apap 5/325 Tablet PO (05:57)
[2020-10-18] MEDS: busPIRone 5 MG Tablet 20 MG PO (05:57)
[2020-10-18] MEDS: Heparin Injection (Vial) 5,000 UNIT/ML VIAL 5000 UNIT SC ×3 (06:06→22:48)
[2020-10-18] MEDS: Aspirin E.C. 81 MG Tablet PO (07:59)
[2020-10-18] MEDS: SEVELAMER CARBONATE 800 MG TABLET 1600 MG PO ×3 (09:23→18:11)
[2020-10-18 10:20] LABS: Anion Gap 14 (5-15); BUN 65 mg/dL (7-18); BUN/Creat Ratio 9.2 RATIO (10-20); Calcium,Total 6.6 mg/dL (8.5-10.1); Chloride 90 mmol/L (98-107); Creatinine, Serum 7.06 mg/dL (0.55-1.02); EST Glomerular Filtration Rate 6 mL/min (>60); Est Glom Filt Rate - Afr Amer 8 mL/min (>60); Estimated Creatinine Clearance 7.72 ml/min; Glucose 101 mg/dL (74-106); Potassium 4.7 mmol/L (3.5-5.1); Sodium Level 122 mmol/L (136-145)
[2020-10-18] MEDS: Clopidogrel Bisulfate 75 MG Tablet PO (10:27)
[2020-10-18] MEDS: Escitalopram Oxalate 20 MG Tablet PO (10:27)
[2020-10-18] MEDS: Acetaminophen 500 MG Tablet 1000 MG PO ×2 (10:27→22:48)
--- NOTE | 2020-10-18 11:26 | PN.HOSP_ITS ---
Documented by User: Julian CHANG 10/18/20 11:39 Subjective Subjective Patient is a 60-year-old female resting in bed, alert and orient x3 although patient is alert and oriented appropriately, patient is slow to respond to questions and seems lethargic on examination. Due to patient's lethargy, it is difficult for patient to provide insight into current condition or symptoms. Objective Data Objective Data Vital Signs: Vital Signs Temp Pulse Resp BP Pulse Ox 98.2 F 76 12 140/91 H 94 10/18/20 10:25 10/18/20 10:25 10/18/20 10:25 10/18/20 10:25 10/18/20 10:25 Oxygen Flow Rate (L/min) 3 Oxygen Delivery Method Nasal Cannula Weight: 207 lb 10.807 oz Body Mass Index (BMI) 34.5 Intake & Output: Intake and Output for Last 24 Hours 10/16/20 10/17/20 10/18/20 23:59 23:59 23:59 Intake Total 3635 / 3655 2019 Output Total 200 / 200 0 / 0 Balance 3435 / 3455 2019 Lab / Micro Data Result Diagrams: 10/19/20 04:53 10/19/20 04:53 Labs: Laboratory Results - last 24 hr 10/17/20 13:50: WBC 8.3, RBC 5.23, Hgb 14.6, Hct 44.5, MCV 85.1, MCH 27.9, MCHC 32.8, RDW Std Deviation 50.8 H, RDW Coeff of Aleksandar 16.4 H, Plt Count 224, MPV 10.6, Immature Gran % (Auto) 0.600, Neut % (Auto) 73.5 H, Lymph % (Auto) 16.9 L, [place] % (Auto) 8.2, Eos % (Auto) 0.4, Baso % (Auto) 0.4, Absolute Neuts (auto) 6. 1, Absolute Lymphs (auto) 1.41, Nucleated RBC % 0 10/17/20 13:50: Sodium 118 L*, Potassium 4.5, Chloride 82 L, Carbon Dioxide 19.0 L, Anion Gap 17 H, BUN 65 H, Creatinine 7.37 H, Estim Creat Clear Calc 7.40, Est GFR (MDRD) Af Amer 7 L, Est GFR (MDRD) Non-Af 6 L, BUN/Creatinine Ratio 8.8 L, Glucose 108 H, Calcium 7.7 L, Total Bilirubin 0.30, AST 28, ALT 19, Alkaline Phosphatase 99, Troponin I High Sens 36.3, Total Protein 7.2, Albumin 2.9 L, Globulin 4.3 H, Albumin/Globulin Ratio 0.7 L 10/17/20 15:27: Urine Color Yellow, Urine Clarity Clear, Urine pH 5.0, Ur Specific [place] 1.030, Urine Protein 30 H, Urine Glucose (UA) Normal, Urine Ketones 5 H, Urine Occult Blood 10 H, Urine Nitrite Negative, Urine Bilirubin 3 H, Urine Urobilinogen 1 H, Ur Leukocyte Esterase 25 H, Urine RBC 0 SEEN, Urine WBC 0-5 SEEN, Ur Squamous Epith Cells 0-5 SEEN, Urine Bacteria RARE, Urine Mucus 0 SEEN 10/17/20 19:50: Sodium 121 L, Potassium 4.5, Chloride 87 L, Carbon Dioxide 19.0 L, Anion Gap 15, BUN 63 H, Creatinine 7.05 H, Estim Creat Clear Calc 7.73, Est GFR (MDRD) Af Amer 8 L, Est GFR (MDRD) Non-Af 6 L, BUN/Creatinine Ratio 8.9 L, Glucose 105, Calcium 7.0 L 10/18/20 00:01: Sodium 120 L, Potassium 4.7, Chloride 89 L, Carbon Dioxide 18.0 L, Anion Gap 13, BUN 66 H, Creatinine 7.09 H, Estim Creat Clear Calc 7.69, Est GFR (MDRD) Af Amer 8 L, Est GFR (MDRD) Non-Af 6 L, BUN/Creatinine Ratio 9.3 L, Glucose 92, Calcium 6.8 L 10/18/20 03:22: WBC 9.2, RBC 4.75, Hgb 13.4, Hct 41.7, MCV 87.8, MCH 28.2, MCHC 32.1, RDW Std Deviation 53.2 H, RDW Coeff of Aleksandar 16.5 H, Plt Count 203, MPV 11.2, Immature Gran % (Auto) 0.900, Neut % (Auto) 68.8, Lymph % (Auto) 18.0 L, [place] % (Auto) 11.3 H, Eos % (Auto) 0.7, Baso % (Auto) 0.3, Absolute Neuts (auto) 6.3, Absolute Lymphs (auto) 1.66, Nucleated RBC % 0 10/18/20 03:22: Sodium 120 L, Potassium 4.5, Chloride 86 L, Carbon Dioxide 19.0 L, Anion Gap 15, BUN 64 H, Creatinine 7.24 H, Estim Creat Clear Calc 7.53, Est GFR (MDRD) Af Amer 7 L, Est GFR (MDRD) Non-Af 6 L, BUN/Creatinine Ratio 8.8 L, Glucose 88, Calcium 6.6 L, Phosphorus 9.6 H*, Magnesium 2.5, Total Bilirubin 0.30, Direct Bilirubin 0.10, AST 24, ALT 18, Alkaline Phosphatase 90, Total Protein 5.9 L, Albumin 2.5 L, Globulin 3.4, TSH 0.70 10/18/20 10:02: Sodium 122 L, Potassium 4.7, Chloride 90 L, Carbon Dioxide 18.0 L, Anion Gap 14, BUN 65 H, Creatinine 7.06 H, Estim Creat Clear Calc 7.72, Est GFR (MDRD) Af Amer 8 L, Est GFR (MDRD) Non-Af 6 L, BUN/Creatinine Ratio 9.2 L, Glucose 101, Calcium 6.6 L Radiography Diagnostic Testing: Radiology Impression Thoracic Spine X-Ray 10/17/20 13:27 IMPRESSION: No demonstrated compression fracture. Degenerative changes. Electronically Signed: James Simeon MD ([place]) at 14:36 EDT , Service support , Lumbar Spine X-Ray 10/17/20 14:10 IMPRESSION: Degenerative changes. No compression fracture. Electronically Signed: James Simeon MD ([place]) at 14:37 EDT , Service support , Abdomen/Pelvis CT 10/17/20 15:19 IMPRESSION: 1. No acute inflammatory process or bowel obstruction. 2. No hydronephrosis. 3. Urinary bladder decompressed by Roland catheter. Electronically Signed: James Simeon MD ([place]) at 15:51 EDT , Service support , Physical Exam Const alert and oriented x3 Orientation / Consciousness: lethargic Nutritional Appearance: morbidly obese HEENT head/scalp atraumatic and moist oral mucous membranes Head and Scalp: normocephalic Eyes PERRL, EOMs intact bilaterally and conjunctivae normal Neck no lymphadenopathy, supple and no JVD Resp normal respiratory effort, no retractions, no use of accessory muscles and clear to auscultation bilaterally Cardio regular rate, regular rhythm, no murmurs and no JVD GI normal to inspection, nondistended, normoactive bowel sounds, soft to palpation and non-tender Extremity normal to inspection, full ROM and no clubbing, cyanosis or edema Skin no rashes or lesions noted, no wounds, skin turgor normal and no jaundice Neuro CN's II-XII intact bilaterally Psych affect normal Assessment & Plan Assessment/Plan (1) Dehydration: (2) High anion gap metabolic acidosis: (3) Acute hyponatremia: PLAN: Day 2: Patient was alert and oriented my examination but was very lethargic and able to provide limited insight into current condition or symptoms. Discharge planning: Patient to return home on discharge, no home health care needs identified 1) LOVE Creatinine currently 7.06, down from admission, baseline creatinine between 0.7 and 1. Elevated creatinine believed to be due to dehydration on admission. Plan; continue IV hydration, continue Roland, hold hydrochlorothiazide and lisinopri, will continue to monitor BMP, will consult nephrology if no improvement. 2) anion gap metabolic acidosis secondary to LOVE Anion gap 14. Management as above. 3) acute hyponatremia Contributing to #1, likely due to dehydration prior to admission. Plan; continue IV fluids, BMP every 4 hours, nephrology consult if no significant improvement. 4) CAD History of cardiac stent. Continue statin, Plavix, Toprol and Crestor. 5) HTN Stable, hold hydrochlorothiazide and lisinopril due to #1. 6) hyperlipidemia Continue Crestor 7) COPD Not in acute exacerbation, continue bronchodilators, continue supplemental oxygen. 8) Depression/anxiety Continue home regimen DVT prophylaxis -heparin Patient seen by Julian Jones PA-C, under the supervision of Dr. Valenzuela. Documented by User: Dr. Luisa Valenzuela MD 10/19/20 17:04 Objective Data Lab / Micro Data Result Diagrams: 10/19/20 04:53 10/19/20 04:53 Charges/Coding Addendum Addendum: This patient was seen in conjunction with BERNARDO Mclain. I have independently interviewed and examined the patient and reviewed pertinent historical, laboratory, and other data. Please refer to BERNARDO Mclain's note for his patient's presentation, findings, and recommendations. I have reviewed and his note and concur with his documentation Patient was seen and examined. She appeared very lethargic. She is able to wake up to answer questions. Her urine in the Roland catheter is gross, dark, with lots of sediment. Physical Exam: Gen: Obese, lethargic, not pale, not jaundiced CVS:HS I +II, regular, no murmurs RESP: Diminished at lung bases GI: BS present and normal, soft, nontender, no palpable organs EXT: Bilateral leg edema +1 ASSESSMENT: 1. LOVE 2. Anion gap metabolic acidosis 3. Hyponatremia 4. CAD status post stent 5. Hypertension 6. Hyperlipidemia Plan: Nephrology consult, continue on IV fluids Repeat blood work in a.m. Visit Charges Inpatient E&M: 61617 Subs Hosp L3
--- NOTE | 2020-10-18 14:00 | CASEMGMT ---
RN CM NOTE: Pt w/decreased cognition/confused and drowsy today. Initial RN CM deferred at this time. Josiane BETHN RN CM
--- NOTE | 2020-10-18 14:12 | CON.PCM.RE_ITS ---
Assessment & Plan Assessment/Plan (1) Acute kidney injury: PLAN: Normal baseline as of last month. Unclear what happened. I do not see any contrast studies. She has had diarrhea for few days now. In the past her urine toxicology was positive for MDMA, cannabinoids, opioids. No focal muscle tenderness. I will check a CPK. CT abdomen without hydronephrosis. Urine analysis shows small amount of blood, no significant proteinuria. Continue fluids for now (2) Acute hyponatremia: PLAN: Noted with a sodium of 118. Today up to 122. Patient says she was having a lot of diarrhea and has been trying to drink liquids. Continue fluids for now. HPI Consult Data Date of Consult: 10/18/20 HPI Narrative HPI Narrative: JOHANA YBARRA, is a 60 F who presents to the hospital with generalized weakness, falls. Was found to have acute renal failure. Somewhat poor historian. ? Baseline. Apparently she has had diarrhea for 3 to 4 days. No other complaints. Found to have a creatinine of 7.0 on admission. Normal baseline in August. When I asked if she started taking any new medications she says no. ? NSAIDs. Says she has not made any urine for couple of days now. [facility] Medical History (Updated 10/17/20 @ 17:[address] Jessica Sidhu, DO) LOVE (acute kidney injury) Atherosclerosis of [place] coronary artery of [place] heart without angina pe ctoris Essential (primary) hypertension Fracture tibia/fibula Generalized anxiety disorder with panic attacks Hyperlipidemia Low back pain Lump of breast, left Myocardial infarct Nicotine dependence NSTEMI (non-ST elevated myocardial infarction) (10/2016) Obesity (BMI 30-39.9) Osteoarthritis Paroxysmal atrial fibrillation Pneumonia Smoker Syncope and collapse UTI (urinary tract infection) Vision problems Home Medications aspirin 81 mg PO DAILY@0800 10/29/17 [History Last Taken 10/17/20] acetaminophen 1,000 mg PO BID 03/18/18 [History Last Taken 10/14/20] lisinopril 20 mg tablet 20 mg PO BID tab 05/09/20 [History Last Taken 10/17/20] rosuvastatin 40 mg tablet 40 mg PO DAILY #90 tab 05/17/20 [Rx Last Taken 10/17/20] trazodone 100 mg tablet 200 mg PO QHS #60 tab 08/01/20 [Rx Last Taken 10/16/20] clopidogrel 75 mg tablet 75 mg PO DAILY #90 tab 08/17/20 [Rx Last Taken 10/17/20] buspirone 10 mg tablet 20 mg PO TID tab 08/20/20 [History Last Taken 10/17/20] hydrochlorothiazide 12.5 mg PO QODAY 08/28/20 [History Last Taken 10/17/20] hydrocodone-acetaminophen 1 tab PO TID 08/29/20 [History Last Taken 10/17/20] metoprolol tartrate 50 mg PO BID 08/29/20 [History Last Taken 10/17/20] tizanidine 4 mg PO TID PRN #0 tab 09/01/20 [Rx Last Taken 10/17/20] albuterol sulfate 90 mcg/actuation aerosol inhaler 2 puff INHALATION Q6H PRN #18 gm 10/05/20 [Rx Last Taken 10/17/20] escitalopram oxalate [Lexapro] 20 mg PO DAILY 10/17/20 [History Last Taken 10/17/20] gabapentin 800 mg PO 4X/DAY 10/17/20 [History Last Taken 10/17/20] Allergy/AdvReac Type Severity Reaction Status Date / Time adhesive AdvReac Other Verified 10/17/20 13:13 baclofen AdvReac LETHARGY Verified 10/17/20 13:13 Family History Father Hypertension Bowel disease Heart disease Kidney disease Mother Hypertension Arthritis Bowel disease Colon cancer Heart disease High cholesterol Grandmother Arthritis Breast cancer Brain tumor Lung cancer Grandfather Myocardial infarction Surgical History H/O laminectomy History of colonoscopy History of coronary artery stent placement (11/17/16) History of left heart catheterization History of splenectomy History of total right hip replacement Hx of bone graft (2014) S/P ORIF (open reduction internal fixation) fracture Social History Smoking Status: Current every day smoker tobacco type: cigarettes Tobacco: How many years used: 35 alcohol intake: current alcohol intake frequency: holidays/special occasions only Alcohol type: hard liquor substance use type: former substance user Date of last use: 20 years ago and marijuana caffeine: Yes Type: carbonated beverages and coffee what type of physical activity do you participate in: other details: Physical Therapy frequency: 3-4 times per week seatbelt use: always do you feel safe at home: Yes Physical Exam Narrative Alert awake somewhat confused no obvious distress no pallor no icterus no JVD s1s2 no murmurs lungs clear abdomen soft no organomegaly no edema no cyanosis carter + Lab / Micro Data Result Diagrams: 10/18/20 03:22 10/18/20 10:02 Labs: Laboratory Results - last 24 hr 10/17/20 13:50: Sodium 118 L*, Potassium 4.5, Chloride 82 L, Carbon Dioxide 19.0 L, Anion Gap 17 H, BUN 65 H, Creatinine 7.37 H, Estim Creat Clear Calc 7.40, Est GFR (MDRD) Af Amer 7 L, Est GFR (MDRD) Non-Af 6 L, BUN/Creatinine Ratio 8.8 L, Glucose 108 H, Calcium 7.7 L, Total Bilirubin 0.30, AST 28, ALT 19, Alkaline Phosphatase 99, Troponin I High Sens 36.3, Total Protein 7.2, Albumin 2.9 L, Globulin 4.3 H, Albumin/Globulin Ratio 0.7 L 10/17/20 15:27: Urine Color Yellow, Urine Clarity Clear, Urine pH 5.0, Ur Specific Benedict 1.030, Urine Protein 30 H, Urine Glucose (UA) Normal, Urine Ketones 5 H, Urine Occult Blood 10 H, Urine Nitrite Negative, Urine Bilirubin 3 H, Urine Urobilinogen 1 H, Ur Leukocyte Esterase 25 H, Urine RBC 0 SEEN, Urine WBC 0-5 SEEN, Ur Squamous Epith Cells 0-5 SEEN, Urine Bacteria RARE, Urine Mucus 0 SEEN 10/17/20 19:50: Sodium 121 L, Potassium 4.5, Chloride 87 L, Carbon Dioxide 19.0 L, Anion Gap 15, BUN 63 H, Creatinine 7.05 H, Estim Creat Clear Calc 7.73, Est GFR (MDRD) Af Amer 8 L, Est GFR (MDRD) Non-Af 6 L, BUN/Creatinine Ratio 8.9 L, Glucose 105, Calcium 7.0 L 10/18/20 00:01: Sodium 120 L, Potassium 4.7, Chloride 89 L, Carbon Dioxide 18.0 L, Anion Gap 13, BUN 66 H, Creatinine 7.09 H, Estim Creat Clear Calc 7.69, Est GFR (MDRD) Af Amer 8 L, Est GFR (MDRD) Non-Af 6 L, BUN/Creatinine Ratio 9.3 L, Glucose 92, Calcium 6.8 L 10/18/20 03:22: WBC 9.2, RBC 4.75, Hgb 13.4, Hct 41.7, MCV 87.8, MCH 28.2, MCHC 32.1, RDW Std Deviation 53.2 H, RDW Coeff of Aleksandar 16.5 H, Plt Count 203, MPV 11.2, Immature Gran % (Auto) 0.900, Neut % (Auto) 68.8, Lymph % (Auto) 18.0 L, [place] % (Auto) 11.3 H, Eos % (Auto) 0.7, Baso % (Auto) 0.3, Absolute Neuts (auto) 6.3, Absolute Lymphs (auto) 1.66, Nucleated RBC % 0 10/18/20 03:22: Sodium 120 L, Potassium 4.5, Chloride 86 L, Carbon Dioxide 19.0 L, Anion Gap 15, BUN 64 H, Creatinine 7.24 H, Estim Creat Clear Calc 7.53, Est GFR (MDRD) Af Amer 7 L, Est GFR (MDRD) Non-Af 6 L, BUN/Creatinine Ratio 8.8 L, Glucose 88, Calcium 6.6 L, Phosphorus 9.6 H*, Magnesium 2.5, Total Bilirubin 0.30, Direct Bilirubin 0.10, AST 24, ALT 18, Alkaline Phosphatase 90, Total Protein 5.9 L, Albumin 2.5 L, Globulin 3.4, TSH 0.70 10/18/20 10:02: Sodium 122 L, Potassium 4.7, Chloride 90 L, Carbon Dioxide 18.0 L, Anion Gap 14, BUN 65 H, Creatinine 7.06 H, Estim Creat Clear Calc 7.72, Est GFR (MDRD) Af Amer 8 L, Est GFR (MDRD) Non-Af 6 L, BUN/Creatinine Ratio 9.2 L, Glucose 101, Calcium 6.6 L Radiology Impression Thoracic Spine X-Ray 10/17/20 13:27 IMPRESSION: No demonstrated compression fracture. Degenerative changes. Electronically Signed: James Simeon MD ([facility]) at 14:36 EDT , Service support , Lumbar Spine X-Ray 10/17/20 14:10 IMPRESSION: Degenerative changes. No compression fracture. Electronically Signed: Jamse Simeon MD ([facility]) at 14:37 EDT , Service support , Abdomen/Pelvis CT 10/17/20 15:19 IMPRESSION: 1. No acute inflammatory process or bowel obstruction. 2. No hydronephrosis. 3. Urinary bladder decompressed by Carter catheter. Electronically Signed: James Simeon MD ([facility]) at 15:51 EDT , Service support ,
[2020-10-18 15:10] LABS: Anion Gap 10 (5-15); BUN 66 mg/dL (7-18); BUN/Creat Ratio 8.9 RATIO (10-20); Calcium,Total 6.6 mg/dL (8.5-10.1); Chloride 91 mmol/L (98-107); Creatinine, Serum 7.41 mg/dL (0.55-1.02); EST Glomerular Filtration Rate 6 mL/min (>60); Est Glom Filt Rate - Afr Amer 7 mL/min (>60); Estimated Creatinine Clearance 7.36 ml/min; Glucose 98 mg/dL (74-106); Potassium 4.8 mmol/L (3.5-5.1); Sodium Level 122 mmol/L (136-145)
[2020-10-18 15:12] LABS: CPK Total, Creatine Kinase 890 U/L (26-192)
[2020-10-18 19:20] LABS: Anion Gap 13 (5-15); BUN 66 mg/dL (7-18); BUN/Creat Ratio 9.1 RATIO (10-20); Calcium,Total 6.7 mg/dL (8.5-10.1); Chloride 92 mmol/L (98-107); Creatinine, Serum 7.25 mg/dL (0.55-1.02); EST Glomerular Filtration Rate 6 mL/min (>60); Est Glom Filt Rate - Afr Amer 7 mL/min (>60); Estimated Creatinine Clearance 7.52 ml/min; Glucose 87 mg/dL (74-106); Potassium 4.6 mmol/L (3.5-5.1); Sodium Level 123 mmol/L (136-145)
[2020-10-18] MEDS: Atorvastatin Calcium 80 MG Tablet PO (22:48)
[2020-10-18 22:50] LABS: Anion Gap 12 (5-15); BUN 68 mg/dL (7-18); BUN/Creat Ratio 9.4 RATIO (10-20); Calcium,Total 6.6 mg/dL (8.5-10.1); Chloride 93 mmol/L (98-107); Creatinine, Serum 7.23 mg/dL (0.55-1.02); EST Glomerular Filtration Rate 6 mL/min (>60); Est Glom Filt Rate - Afr Amer 7 mL/min (>60); Estimated Creatinine Clearance 7.54 ml/min; Glucose 93 mg/dL (74-106); Potassium 4.9 mmol/L (3.5-5.1); Sodium Level 122 mmol/L (136-145)
[2020-10-18 23:01] LABS: Bedside Glucose 96 mg/dL (70-110)
[2020-10-19] VITALS (15 sets, daily range): BP systolic 91–130; BP diastolic 35–84; PULSE 80–108; RESP 17–20; TEMP 36.3–36.9; O2SAT 92–100; BMI 37.8
[2020-10-19 02:42] LABS: Anion Gap 12 (5-15); BUN 67 mg/dL (7-18); BUN/Creat Ratio 9.2 RATIO (10-20); Calcium,Total 6.7 mg/dL (8.5-10.1); Chloride 95 mmol/L (98-107); Creatinine, Serum 7.31 mg/dL (0.55-1.02); EST Glomerular Filtration Rate 6 mL/min (>60); Est Glom Filt Rate - Afr Amer 7 mL/min (>60); Estimated Creatinine Clearance 7.46 ml/min; Glucose 87 mg/dL (74-106); Potassium 4.9 mmol/L (3.5-5.1); Sodium Level 123 mmol/L (136-145)
[2020-10-19] MEDS: 0.9% Normal Saline 1,000 ML 200 ML IV ×2 (04:27→09:51)
[2020-10-19 05:39] LABS: Absolute Lymphocyte Count 0.68 X10^3/uL (0.83-4.51); Absolute Neutrophil Count 6.5 X10^3/uL (2.0-7.7); Basophil# 0.01 X10^3/uL; Basophil% 0.1 % (0-1); Eosinophil# 0.01 X10^3/uL; Eosinophils% 0.1 % (0-5); Hemoglobin 13.3 g/dL (12.0-15.0); Lymphocyte # 0.68 X10^3/ul (0.83-4.51); Lymphocyte % 8.4 % (19-41); Mean Corp Hgb Conc 32.4 g/dL (32-36); Mean Corpuscular Hgb 28.2 pg (27.0-32.0); Mean Platelet Vol. 10.8 fl (6.2-12.0); Monocyte# 0.86 X10^3/uL; Monocyte% 10.6 % (0-10); NRBC Flagged by Analyzer 0 % (0-5); Neutrophil # 6.47 X10^3/uL (2.7-7.7); Neutrophil % 79.8 % (47-70); Platelet Count 206 K/mm3 (150-450); RBC Distribution Width CV 16.2 % (11.6-14.6); RBC Distribution Width SD 52.3 fl (35.1-43.9); Red Blood Count 4.71 M/mm3 (4.2-5.4); White Blood Count 8.1 K/mm3 (4.4-11.0)
[2020-10-19 06:10] LABS: Anion Gap 14 (5-15); BUN 65 mg/dL (7-18); BUN/Creat Ratio 9.1 RATIO (10-20); Calcium,Total 6.5 mg/dL (8.5-10.1); Chloride 94 mmol/L (98-107); Creatinine, Serum 7.12 mg/dL (0.55-1.02); EST Glomerular Filtration Rate 6 mL/min (>60); Est Glom Filt Rate - Afr Amer 8 mL/min (>60); Estimated Creatinine Clearance 7.66 ml/min; Glucose 82 mg/dL (74-106); Phosphorus 8.7 mg/dL (2.5-4.9); Potassium 5.2 mmol/L (3.5-5.1); Sodium Level 125 mmol/L (136-145)
[2020-10-19] MEDS: Heparin Injection (Vial) 5,000 UNIT/ML VIAL 5000 UNIT SC (06:52)
[2020-10-19 07:00] LABS: Bedside Glucose 84 mg/dL (70-110)
--- NOTE | 2020-10-19 10:36 | PN.HOSP_ITS ---
Documented by User: Julian CHANG 10/19/20 10:45 Subjective Subjective Patient is a 60-year-old female resting in a chair, alert and oriented x3. Although patient is appropriately alert and oriented, she is slow to respond to questioning and does not appear to fully understand her current situation. Pat ient unable to provide much insight into her current condition or symptoms. Objective Data Objective Data Vital Signs: Vital Signs Temp Pulse Resp BP Pulse Ox 97.8 F 80 18 92/35 L 95 10/19/20 09:36 10/19/20 09:36 10/19/20 09:36 10/19/20 09:36 10/19/20 09:36 Oxygen Flow Rate (L/min) 3 Oxygen Delivery Method Nasal Cannula Weight: 207 lb 10.807 oz Body Mass Index (BMI) 34.5 Intake & Output: Intake and Output for Last 24 Hours 10/17/20 10/18/20 10/19/20 23:59 23:59 23:59 Intake Total 3635 / 3655 5420 / 5420 1999 / 1999 Output Total 200 / 200 350 / 350 100 / 100 Balance 3435 / 3455 5070 / 5070 1900 / 1900 Lab / Micro Data Result Diagrams: 10/19/20 04:53 10/19/20 04:53 Labs: Laboratory Results - last 24 hr 10/18/20 14:15: Sodium 122 L, Potassium 4.8, Chloride 91 L, Carbon Dioxide 21.0, Anion Gap 10, BUN 66 H, Creatinine 7.41 H*, Estim Creat Clear Calc 7.36, Est GFR (MDRD) Af Amer 7 L, Est GFR (MDRD) Non-Af 6 L, BUN/Creatinine Ratio 8.9 L, Glucose 98, Calcium 6.6 L 10/18/20 14:15: Total Creatine Kinase 890 H 10/18/20 18:01: Sodium 123 L, Potassium 4.6, Chloride 92 L, Carbon Dioxide 18.0 L, Anion Gap 13, BUN 66 H, Creatinine 7.25 H, Estim Creat Clear Calc 7.52, Est GFR (MDRD) Af Amer 7 L, Est GFR (MDRD) Non-Af 6 L, BUN/Creatinine Ratio 9.1 L, Glucose 87, Calcium 6.7 L 10/18/20 22:00: Sodium 122 L, Potassium 4.9, Chloride 93 L, Carbon Dioxide 17.0 L, Anion Gap 12, BUN 68 H, Creatinine 7.23 H, Estim Creat Clear Calc 7.54, Est GFR (MDRD) Af Amer 7 L, Est GFR (MDRD) Non-Af 6 L, BUN/Creatinine Ratio 9.4 L, Glucose 93, Calcium 6.6 L 10/18/20 22:55: POC Glucose 96 10/19/20 02:20: Sodium 123 L, Potassium 4.9, Chloride 95 L, Carbon Dioxide 16.0 L, Anion Gap 12, BUN 67 H, Creatinine 7.31 H, Estim Creat Clear Calc 7.46, Est GFR (MDRD) Af Amer 7 L, Est GFR (MDRD) Non-Af 6 L, BUN/Creatinine Ratio 9.2 L, Glucose 87, Calcium 6.7 L 10/19/20 04:53: Sodium 125 L, Potassium 5.2 H, Chloride 94 L, Carbon Dioxide 17.0 L, Anion Gap 14, BUN 65 H, Creatinine 7.12 H, Estim Creat Clear Calc 7.66, Est GFR (MDRD) Af Amer 8 L, Est GFR (MDRD) Non-Af 6 L, BUN/Creatinine Ratio 9.1 L, Glucose 82, Calcium 6.5 L*, Phosphorus 8.7 H 10/19/20 04:53: WBC 8.1, RBC 4.71, Hgb 13.3, Hct 41.0, MCV 87.0, MCH 28.2, MCHC 32.4, RDW Std Deviation 52.3 H, RDW Coeff of Aleksandar 16.2 H, Plt Count 206, MPV 10.8, Immature Gran % (Auto) 1.000 H, Neut % (Auto) 79.8 H, Lymph % (Auto) 8.4 L , [place] % (Auto) 10.6 H, Eos % (Auto) 0.1, Baso % (Auto) 0.1, Absolute Neuts (auto) 6.5, Absolute Lymphs (auto) 0.68 L, Nucleated RBC % 0 10/19/20 06:55: POC Glucose 84 Physical Exam Const alert and oriented x3 Orientation / Consciousness: confused and lethargic Nutritional Appearance: morbidly obese HEENT head/scalp atraumatic, moist oral mucous membranes and oropharynx normal Head and Scalp: normocephalic Eyes EOMs intact bilaterally and conjunctivae normal Neck no lymphadenopathy, supple and no JVD Resp normal respiratory effort, no retractions, no use of accessory muscles and clear to auscultation bilaterally Cardio regular rate, regular rhythm, no murmurs and no JVD GI normal to inspection, nondistended, normoactive bowel sounds, soft to palpation and non-tender Extremity normal to inspection, full ROM and no clubbing, cyanosis or edema Skin no rashes or lesions noted, no wounds and skin turgor normal Neuro CN's II-XII intact bilaterally Psych affect normal Assessment & Plan Assessment/Plan (1) Dehydration: (2) High anion gap metabolic acidosis: PLAN: Day 3: Patient was alert and oriented my examination but was very lethargic and able to provide limited insight into current condition or symptoms. Discharge planning: Patient to return home on discharge, no home health care needs identified 1) LOVE Creatinine currently 7.12 down from admission, baseline creatinine between 0.7 and 1. Elevated creatinine believed to be due to dehydration on admission. Neprhology following, in leiu of creatintine that has remained above 7, would like to proceed with dialysis. Plan; management pe.r Neprho; dialyze, continue IV hydration, continue Roland, hold hydrochlorothiazide and lisinopri, will continue to monitor BMP 2) anion gap metabolic acidosis secondary to LOVE Anion gap 14. Management as above. 3) acute hyponatremia Currently 125, steadily improving from admission. Contributing to #1, likely due to dehydration prior to admission. Plan; management per nephrology; continue iv fluids. 4) CAD History of cardiac stent. Continue statin, Plavix, Toprol and Crestor. 5) HTN Stable, hold hydrochlorothiazide and lisinopril due to #1. 6) hyperlipidemia Continue Crestor 7) COPD Not in acute exacerbation, continue bronchodilators, continue supplemental oxygen. 8) Depression/anxiety Continue home regimen DVT prophylaxis -heparin Patient seen by Julian Jones PA-C, under the supervision of Dr. Valenzuela. Documented by User: Dr. Luisa Valenzuela MD 10/19/20 17:08 Objective Data Lab / Micro Data Result Diagrams: 10/19/20 04:53 10/19/20 04:53 Charges/Coding Addendum Addendum: This patient was seen in conjunction with BERNARDO Mclain. I have independently interviewed and examined the patient and reviewed pertinent historical, laboratory, and other data. Please refer to BERNARDO Mclain's note for his patient's presentation, findings, and recommendations. I have reviewed and his note and concur with his documentation Patient was seen and examined. Stillvery lethargic. Discussed with nephrology, dialysis catheter planned today Physical Exam: Gen: Obese, lethargic, not pale, not jaundiced CVS:HS I +II, regular, no murmurs RESP: Diminished at lung bases GI: BS present and normal, soft, nontender, no palpable organs EXT: Bilateral leg edema +1 ASSESSMENT: 1. LOVE 2. Anion gap metabolic acidosis 3. Hyponatremia 4. CAD status post stent 5. Hypertension 6. Hyperlipidemia Plan: Gabapentin, BuSpar, trazodone, have been held Dialysis catheter planned for today. Dialysis to start today Repeat blood work in a.m. Visit Charges Inpatient E&M: 42743 Subs Hosp L2 Multi Select Codes Visit Charges Visit Charges: 88170 Subs Hosp L3
[2020-10-19 10:51] LABS: Hepatitis B Surface Antigen Non-Reactive (Nonreactive)
[2020-10-19 12:45] LABS: Bedside Glucose 100 mg/dL (70-110)
[2020-10-19 12:50] LABS: Prothrombin Time (Protime)PT. 12.5 SECONDS (11.7-14.9)
[2020-10-19 12:51] LABS: Partial Thromboplast Time 31.9 Seconds (24.1-36.2)
--- NOTE | 2020-10-19 13:13 | PN.RENAL_ITS ---
Subjective Subjective no new events. anuric. Objective Data Objective Data Vital Signs: Vital Signs Temp Pulse Resp BP Pulse Ox 97.7 F L 88 17 91/49 L 92 10/19/20 12:56 10/19/20 12:56 10/19/20 12:56 10/19/20 12:56 10/19/20 12:56 Oxygen Flow Rate (L/min) 3 Oxygen Delivery Method Nasal Cannula Weight: 102.9 kg Body Mass Index (BMI) 37.8 Intake & Output: Intake and Output for Last 24 Hours 10/17/20 10/18/20 10/19/20 23:59 23:59 23:59 Intake Total 3635 / 3655 5420 / 5420 1999 / 1999 Output Total 200 / 200 350 / 350 100 / 100 Balance 3435 / 3455 5070 / 5070 1900 / 1900 Medical Nutrition Assessment Dietitian: Nutrition Therapy Diagnosis Start: 10/19/20 11:40 Freq: Status: Active Protocol: Document 10/19/20 12:05 LOCO (Rec: 10/19/20 12:06 LOCO [id number]) Nutrition Malnutrition Evidence of Malnutrition Exists No Clinical Problem Altered Nutrient-Related Laboratory Values Etiology related to renal function Signs/Symptoms as evidenced by Na 125, K 5.2, BUN 65, Cr 7.12 and need for dialysis treatment Status Active Problem Recommendation Dietitian Recommendations/Changes Will change diet to Renal-pro restricted - once dialysis tx is initiated, rec change to Renal-general diet Provide diet education prior to d/c as indicated. Lab / Micro Data Result Diagrams: 10/19/20 04:53 10/19/20 04:53 Labs: Laboratory Results - last 24 hr 10/18/20 14:15: Sodium 122 L, Potassium 4.8, Chloride 91 L, Carbon Dioxide 21.0, Anion Gap 10, BUN 66 H, Creatinine 7.41 H*, Estim Creat Clear Calc 7.36, Est GFR (MDRD) Af Amer 7 L, Est GFR (MDRD) Non-Af 6 L, BUN/Creatinine Ratio 8.9 L, Glucose 98, Calcium 6.6 L 10/18/20 14:15: Total Creatine Kinase 890 H 10/18/20 18:01: Sodium 123 L, Potassium 4.6, Chloride 92 L, Carbon Dioxide 18.0 L, Anion Gap 13, BUN 66 H, Creatinine 7.25 H, Estim Creat Clear Calc 7.52, Est GFR (MDRD) Af Amer 7 L, Est GFR (MDRD) Non-Af 6 L, BUN/Creatinine Ratio 9.1 L, Glucose 87, Calcium 6.7 L 10/18/20 22:00: Sodium 122 L, Potassium 4.9, Chloride 93 L, Carbon Dioxide 17.0 L, Anion Gap 12, BUN 68 H, Creatinine 7.23 H, Estim Creat Clear Calc 7.54, Est GFR (MDRD) Af Amer 7 L, Est GFR (MDRD) Non-Af 6 L, BUN/Creatinine Ratio 9.4 L, Glucose 93, Calcium 6.6 L 10/18/20 22:55: POC Glucose 96 10/19/20 02:20: Sodium 123 L, Potassium 4.9, Chloride 95 L, Carbon Dioxide 16.0 L, Anion Gap 12, BUN 67 H, Creatinine 7.31 H, Estim Creat Clear Calc 7.46, Est GFR (MDRD) Af Amer 7 L, Est GFR (MDRD) Non-Af 6 L, BUN/Creatinine Ratio 9.2 L, Glucose 87, Calcium 6.7 L 10/19/20 04:53: Sodium 125 L, Potassium 5.2 H, Chloride 94 L, Carbon Dioxide 17.0 L, Anion Gap 14, BUN 65 H, Creatinine 7.12 H, Estim Creat Clear Calc 7.66, Est GFR (MDRD) Af Amer 8 L, Est GFR (MDRD) Non-Af 6 L, BUN/Creatinine Ratio 9.1 L, Glucose 82, Calcium 6.5 L*, Phosphorus 8.7 H 10/19/20 04:53: WBC 8.1, RBC 4.71, Hgb 13.3, Hct 41.0, MCV 87.0, MCH 28.2, MCHC 32.4, RDW Std Deviation 52.3 H, RDW Coeff of Aleksandar 16.2 H, Plt Count 206, MPV 10.8, Immature Gran % (Auto) 1.000 H, Neut % (Auto) 79.8 H, Lymph % (Auto) 8.4 L , [place] % (Auto) 10.6 H, Eos % (Auto) 0.1, Baso % (Auto) 0.1, Absolute Neuts (auto) 6.5, Absolute Lymphs (auto) 0.68 L, Nucleated RBC % 0 10/19/20 06:55: POC Glucose 84 10/19/20 09:50: Hep Bs Antigen Non-Reactive 10/19/20 12:30: PT 12.5, INR 1.0, APTT 31.9 10/19/20 12:39: POC Glucose 100 Physical Exam Narrative somewhat confused no obvious distress no pallor no icterus no JVD s1s2 no murmurs lungs clear abdomen soft no organomegaly no edema no cyanosis carter + Assessment & Plan Assessment/Plan (1) Acute kidney injury: PLAN: Normal baseline as of last month. Unclear what happened. I do not see any contrast studies. She has had diarrhea for few days now. In the past her urine toxicology was positive for MDMA, cannabinoids, opioids. No focal muscle tenderness. CPK level is a little high but not too high. CT abdomen without hydronephrosis. Urine analysis shows small amount of blood, no significant proteinuria. possible ischemic ATN. remains anuric. needs dialysis today. surgery service has agreed to place a line today. plan for dialysis after (2) Acute hyponatremia: PLAN: Noted with a sodium of 118. Today up to 125. Patient says she was having a lot of diarrhea and has been trying to drink liquids. dc fluids due to edema. should correct further with dialysis. will use lower sodium bath (3) Hyperphosphatemia: PLAN: due to LOVE. also causing hypocalcemia. on binders. should correct with HD. lawrence Valenzuela
--- NOTE | 2020-10-19 13:24 | NURSING ---
spoke with son. States his mother has had problems with alcohol in past. He believes she stopped but knows she sometimes smokes pot and has vicoden script. has a poor diet and falling more. Son would like patient to not be dc home alone but he will take her in and try to get her to eat better and help take care of her. Son also geve verbal consent for dialysis catheter placement
--- NOTE | 2020-10-19 15:00 | CASEMGMT ---
RN REKHA NOTE: Per Julian CHANG, pt continues w/decrease in cognition today. Initial RN CM assessment deferred at this time. Plan is for pt to have dialysis catheter placed today and to start dialysis afterwards. MAMADOU DA SILVA to room to attempt to talk w/pt, but pt is out of room at this time. BERNARDO Jordan, states will attempt to contact pt's son today to discuss pt's medical condition/plan of care. Josiane BETHN RN CM
--- NOTE | 2020-10-19 15:23 | EX.PCM.CON.S ---
Assessment & Plan Assessment/Plan (1) Acute kidney injury: (2) Vascular catheter fitting or adjustment: PLAN: Plan will be to perform a right IJ tunneled dialysis catheter today. Wrist benefits have been reviewed with her she is willing to proceed. They include bleeding infection which could require further surgeries to remove the catheter. And/or cause the need to have a chest tube placed. HPI Consult Data Date of Consult: 10/19/20 HPI Narrative HPI Narrative: JOHANA YBARRA, is a 60 F who presents to the emergency department [facility] on 10/17/2020 with multiple complaints. She reported that she began having watery stools 3 to 4 days prior to presentation and was taking boat loads of Imodium to make it stop. She denies any recent antibiotic use and states actually the diarrhea has ceased in the last 24 hours. She denies any nausea or vomiting. She is currently denying any abdominal pain, fevers, chills. She does states she feels very weak and actually had an appointment with her PCP at 1:00 today but did not feel she could get down the steps to go to her appointment and therefore she called the squad. She has frequent falls and follows with a neurologist for this. She also has chronic low back pain and follows with Dr. Fernandes for pain management. She reports she has not urinated since Thursday morning. She is a complex past medical history as noted below. Her vital signs on presentation show that she is afebrile with a blood pressure of 101/86, respiratory rate 16 and she satting 95% on 2 L nasal cannula at the present time but on presentation she was 77% on room air but this was after she was given 100 of fentanyl. She has no pulmonary complaints at this time. Her CBC is unremarkable. Her BMP shows hyponatremia with a sodium of 118, hypochloremia with a chloride of 82, serum bicarb of 19, and anion gap of 17, BUN of 65, and a serum creatinine of 7.37. Her baseline serum creatinine is 0.7-1. Her bilirubin is within normal limits and her liver enzymes are within normal limits. High-sensitivity troponin was performed and is within normal limits. Her UA is markedly concentrated with a specific gravity of 1.030 but shows no signs of infection. Thoracic and lumbar spine x-rays were performed and show no acute processes and only degenerative changes. Given her LOVE and her lack of urine output a CT of her abdomen pelvis was performed and shows no hydronephrosis, no acute inflammatory processes and a decompressed bladder. She did have some diffuse atherosclerotic calcification in her abdominal vasculature and chronic interstitial fibrotic changes in the lung bases. She was treated with IV fluids and had a Roland placed. She was admitted to PCU. She has been seen by nephrology who is recommending dialysis start I am going to be placing a dialysis catheter long-term so that she can get started today. [facility] Medical History LOVE (acute kidney injury) Atherosclerosis of [place] coronary artery of [place] heart without angina pectoris Essential (primary) hypertension Fracture tibia/fibula Generalized anxiety disorder with panic attacks Hyperlipidemia Low back pain Lump of breast, left Myocardial infarct Nicotine dependence NSTEMI (non-ST elevated myocardial infarction) (10/2016) Obesity (BMI 30-39.9) Osteoarthritis Paroxysmal atrial fibrillation Pneumonia Smoker Syncope and collapse UTI (urinary tract infection) Vision problems Home Medications aspirin 81 mg PO DAILY@0800 10/29/17 [History Last Taken 10/17/20] acetaminophen 1,000 mg PO BID 03/18/18 [History Last Taken 10/14/20] lisinopril 20 mg tablet 20 mg PO BID tab 05/09/20 [History Last Taken 10/17/20] rosuvastatin 40 mg tablet 40 mg PO DAILY #90 tab 05/17/20 [Rx Last Taken 10/17/20] trazodone 100 mg tablet 200 mg PO QHS #60 tab 08/01/20 [Rx Last Taken 10/16/20] clopidogrel 75 mg tablet 75 mg PO DAILY #90 tab 08/17/20 [Rx Last Taken 10/17/20] buspirone 10 mg tablet 20 mg PO TID tab 08/20/20 [History Last Taken 10/17/20] hydrochlorothiazide 12.5 mg PO QODAY 08/28/20 [History Last Taken 10/17/20] hydrocodone-acetaminophen 1 tab PO TID 08/29/20 [History Last Taken 10/17/20] metoprolol tartrate 50 mg PO BID 08/29/20 [History Last Taken 10/17/20] tizanidine 4 mg PO TID PRN #0 tab 09/01/20 [Rx Last Taken 10/17/20] albuterol sulfate 90 mcg/actuation aerosol inhaler 2 puff INHALATION Q6H PRN #18 gm 10/05/20 [Rx Last Taken 10/17/20] escitalopram oxalate [Lexapro] 20 mg PO DAILY 10/17/20 [History Last Taken 10/17/20] gabapentin 800 mg PO 4X/DAY 10/17/20 [History Last Taken 10/17/20] Allergy/AdvReac Type Severity Reaction Status Date / Time adhesive AdvReac Other Verified 10/17/20 13:13 baclofen AdvReac LETHARGY Verified 10/17/20 13:13 Family History Father Hypertension Bowel disease Heart disease Kidney disease Mother Hypertension Arthritis Bowel disease Colon cancer Heart disease High cholesterol Grandmother Arthritis Breast cancer Brain tumor Lung cancer Grandfather Myocardial infarction Surgical History H/O laminectomy History of colonoscopy History of coronary artery stent placement (11/17/16) History of left heart catheterization History of splenectomy History of total right hip replacement Hx of bone graft (2014) S/P ORIF (open reduction internal fixation) fracture Social History adopted: No number of children: 1 service: No current occupational status: unemployed Smoking Status: Current every day smoker tobacco type: cigarettes Tobacco: How many years used: 35 alcohol intake: current alcohol intake frequency: holidays/special occasions only Alcohol type: hard liquor substance use type: former substance user Date of last use: 20 years ago and marijuana caffeine: Yes Type: carbonated beverages and coffee what type of physical activity do you participate in: other details: Physical Therapy frequency: 3-4 times per week seatbelt use: always do you feel safe at home: Yes ROS Review of Systems ROS Unobtainable: due to mental status Physical Exam Const Orientation / Consciousness: confused Nutritional Appearance: overweight Resp clear to auscultation bilaterally Cardio Rate: regular rate Rhythm: regular rhythm GI soft to palpation Medical Records Data Medical Nutrition Assessment Dietitian: Nutrition Therapy Diagnosis Start: 10/19/20 11:40 Freq: Status: Active Protocol: Document 10/19/20 12:05 SLA (Rec: 10/19/20 12:06 SLA [id number]) Nutrition Malnutrition Evidence of Malnutrition Exists No Clinical Problem Altered Nutrient-Related Laboratory Values Etiology related to renal function Signs/Symptoms as evidenced by Na 125, K 5.2, BUN 65, Cr 7.12 and need for dialysis treatment Status Active Problem Recommendation Dietitian Recommendations/Changes Will change diet to Renal-pro restricted - once dialysis tx is initiated, rec change to Renal-general diet Provide diet education prior to d/c as indicated. Lab / Micro Data Result Diagrams: 10/19/20 04:53 10/19/20 04:53 Labs: Laboratory Results - last 24 hr 10/18/20 18:01: Sodium 123 L, Potassium 4.6, Chloride 92 L, Carbon Dioxide 18.0 L, Anion Gap 13, BUN 66 H, Creatinine 7.25 H, Estim Creat Clear Calc 7.52, Est GFR (MDRD) Af Amer 7 L, Est GFR (MDRD) Non-Af 6 L, BUN/Creatinine Ratio 9.1 L, Glucose 87, Calcium 6.7 L 10/18/20 22:00: Sodium 122 L, Potassium 4.9, Chloride 93 L, Carbon Dioxide 17.0 L, Anion Gap 12, BUN 68 H, Creatinine 7.23 H, Estim Creat Clear Calc 7.54, Est GFR (MDRD) Af Amer 7 L, Est GFR (MDRD) Non-Af 6 L, BUN/Creatinine Ratio 9.4 L, Glucose 93, Calcium 6.6 L 10/18/20 22:55: POC Glucose 96 10/19/20 02:20: Sodium 123 L, Potassium 4.9, Chloride 95 L, Carbon Dioxide 16.0 L, Anion Gap 12, BUN 67 H, Creatinine 7.31 H, Estim Creat Clear Calc 7.46, Est GFR (MDRD) Af Amer 7 L, Est GFR (MDRD) Non-Af 6 L, BUN/Creatinine Ratio 9.2 L, Glucose 87, Calcium 6.7 L 10/19/20 04:53: Sodium 125 L, Potassium 5.2 H, Chloride 94 L, Carbon Dioxide 17.0 L, Anion Gap 14, BUN 65 H, Creatinine 7.12 H, Estim Creat Clear Calc 7.66, Est GFR (MDRD) Af Amer 8 L, Est GFR (MDRD) Non-Af 6 L, BUN/Creatinine Ratio 9.1 L, Glucose 82, Calcium 6.5 L*, Phosphorus 8.7 H 10/19/20 04:53: WBC 8.1, RBC 4.71, Hgb 13.3, Hct 41.0, MCV 87.0, MCH 28.2, MCHC 32.4, RDW Std Deviation 52.3 H, RDW Coeff of Aleksandar 16.2 H, Plt Count 206, MPV 10.8, Immature Gran % (Auto) 1.000 H, Neut % (Auto) 79.8 H, Lymph % (Auto) 8.4 L, Burke % (Auto) 10.6 H, Eos % (Auto) 0.1, Baso % (Auto) 0.1, Absolute Neuts (auto) 6.5, Absolute Lymphs (auto) 0.68 L, Nucleated RBC % 0 10/19/20 06:55: POC Glucose 84 10/19/20 09:50: Hep Bs Antigen Non-Reactive 10/19/20 12:30: PT 12.5, INR 1.0, APTT 31.9 10/19/20 12:39: POC Glucose 100 Micro: Microbiology 10/19/20 12:40 Mucosa - Nose SARS-CoV-2 Antigen (Rapid) - Final
[2020-10-19] MEDS: Cefazolin 2 GM in 0.9% Normal Saline 100 ML IV (15:50)
[2020-10-19] MEDS: Lidocaine 1% (20 ml mdv) 20 ML Vial (16:00)
[2020-10-19] MEDS: Bupivacaine Mpf 0.5% 30 ML VIAL (16:00)
[2020-10-19] MEDS: Heparin 10,000 UNITS/10 ML Vial 10000 UNITS (16:10)
--- NOTE | 2020-10-19 16:27 | PCM.OPRPT ---
Problems Associated Problem List Diagnoses (1) Vascular catheter fitting or adjustment: Report of Operation Date of Procedure: 10/19/20 Pre-Operative Diagnosis: Vascular fitting and adjustment Post-Operative Diagnosis: Same Surgery/Procedure Performed:: Placement of a 19 cm curved palindrome dialysis catheter into the right internal jugular vein Surgeon: Benedicto Giles customer specialist: None Type of Anesthesia: Local MAC Anesthesiologist: Edward Bates Estimated Blood Loss (mL): < 25 cc Description of Procedure: Patient was placed in the supine position on the operating table. Under excellent MAC anesthetic I ultrasound the right internal jugular vein marked the neck appropriately. The neck and chest were then sterilely prepped and draped in the usual fashion. Local was injected into the neck Seldinger's technique was used to gain access into the right internal jugular vein guidewire was placed over the needle the needle was removed fluoroscopy was used to confirm proper placement of the guidewire. I used the catheter to alisha my exit site on the chest. I injected local made an incision made an incision in the neck. I injected local from the chest up into the neck. I tunneled the curved palindrome catheter from the chest up into the neck. I sequentially dilated the internal jugular vein. Finally I placed the dilator and sheath over the guidewire removing the dilator and guidewire. I placed the palindrome catheter into the sheath and remove the sheath without difficulty. The catheter flushed and irrigated well each tube was flushed with 2 cc of hep flush. Incisions were closed with 3-0 Vicryl. The catheter was sutured to the skin with 3-0 nylon. Sterile dressings were applied and the patient tolerated the procedure well. Portable chest x-ray was ordered. Admit VTE Documentation VTE Present on Admission: No VTE Mechan Device Prophylaxis: SCD's VTE Pharm Prophylaxis ordered?: No Reason prophylaxis not ordered:: Treatment Not Indicated
--- NOTE | 2020-10-19 17:03 | RAD_ITS ---
STUDY: X-RAY CHEST REASON FOR EXAM: Female, 60 years old. Dialysis catheter. TECHNIQUE: Single AP portable view of the chest. COMPARISON: 05/01/2020. FINDINGS: There is a right jugular hemodialysis catheter with its tip in the distal superior vena cava. No pneumothorax. There is a slightly decreased inspiratory effort when compared to prior study. There is chronic interstitial changes without acute infiltrate or mass. Minimal bibasilar atelectasis. There is no demonstrated pleural abnormality. Normal size heart. Normal mediastinum and joe. Normal visualized pulmonary arteries. There is atherosclerotic calcification of the aortic arch with tortuosity. The thoracic spine is obscured by the mediastinum. There is degenerative osteoarthritis of the bilateral shoulders. There is no demonstrated abnormality of the visualized soft tissue structures of the upper abdomen. RAD/Chest 1 View (Portable) IMPRESSION: 1. Right jugular hemodialysis catheter without pneumothorax. 2. Limited inspiratory effort with minimal bibasilar atelectasis. Electronically Signed: Robin Carlson DO at 21:24 EDT Tel [phone], Service support ,
[2020-10-19 18:40] LABS: Bedside Glucose 97 mg/dL (70-110)
--- NOTE | 2020-10-19 21:27 | DIALYSIS ---
Hemodialysis x2 hours completed at 2109 on a 2K bath, 1st treatment, tolerated well, UF 1000mL, CritLine maintained profile A, accessed via new right chest tunneled dialysis catheter, worked well, 2nd treatment planned for Thursday
--- NOTE | 2020-10-19 21:56 | NURSING ---
HS meds held tonight due to extreme drowsiness. Pt was unable to stay awake long enough to take the medications.
[2020-10-19 22:05] LABS: Bedside Glucose 84 mg/dL (70-110)
[2020-10-20] VITALS (12 sets, daily range): BP systolic 117–177; BP diastolic 64–99; PULSE 86–103; RESP 16–18; TEMP 36.3–36.9; O2SAT 92–95
[2020-10-20 06:31] LABS: Bedside Glucose 82 mg/dL (70-110)
[2020-10-20 07:14] LABS: Absolute Lymphocyte Count 0.55 X10^3/uL (0.83-4.51); Absolute Neutrophil Count 5.6 X10^3/uL (2.0-7.7); Basophil# 0.01 X10^3/uL; Basophil% 0.1 % (0-1); Eosinophil# 0.01 X10^3/uL; Eosinophils% 0.1 % (0-5); Hematocrit 37.2 % (37-47); Hemoglobin 12.4 g/dL (12.0-15.0); Lymphocyte # 0.55 X10^3/ul (0.83-4.51); Mean Corp Hgb Conc 33.3 g/dL (32-36); Mean Platelet Vol. 11.3 fl (6.2-12.0); Monocyte# 0.67 X10^3/uL; Monocyte% 9.7 % (0-10); NRBC Flagged by Analyzer 0 % (0-5); Neutrophil % 81.2 % (47-70); POSITIVE DIFFERENTIAL YES; Platelet Count 216 K/mm3 (150-450); RBC Distribution Width CV 15.9 % (11.6-14.6); RBC Distribution Width SD 48.7 fl (35.1-43.9); Red Blood Count 4.43 M/mm3 (4.2-5.4); White Blood Count 6.9 K/mm3 (4.4-11.0)
[2020-10-20 07:17] LABS: Differential Indicated SCAN CRITERIA MET
[2020-10-20 07:54] LABS: Anion Gap 13 (5-15); BUN 46 mg/dL (7-18); BUN/Creat Ratio 10.5 RATIO (10-20); Calcium,Total 7.2 mg/dL (8.5-10.1); Chloride 96 mmol/L (98-107); Creatinine, Serum 4.39 mg/dL (0.55-1.02); EST Glomerular Filtration Rate 11 mL/min (>60); Est Glom Filt Rate - Afr Amer 13 mL/min (>60); Estimated Creatinine Clearance 11.92 ml/min; Glucose 79 mg/dL (74-106); Sodium Level 128 mmol/L (136-145)
[2020-10-20] MEDS: SEVELAMER CARBONATE 800 MG TABLET 1600 MG PO (08:57)
[2020-10-20] MEDS: Nystatin Ointment 1 APPLIC TOPICAL ×2 (08:57→21:37)
[2020-10-20] MEDS: Acetaminophen 500 MG Tablet 1000 MG PO ×2 (08:58→21:36)
--- NOTE | 2020-10-20 12:15 | CASEMGMT ---
MAMADOU DA SILVA Assessment: Face to Face with pt for initial transition planning/care coordination assessment. RN REKHA introduced self and role at [facility], pt voices understanding and consents to assessment. Pt is A/O x4 and answers all questions appropriately at this time. Pt lying in bed receiving dialysis. Dialysis nurse at bedside stating pt uncomfortable and cannot leave her gown on but pt is trying to finish out the session. Pt agreeable to assessment at this time. Care providers, pharmacy, and demographics verified/updated. Admitting Dx: LOVE, hyponatremia, frequent falls, back pain PCP:Иван Specialists: Kimi, nephro; Avery, cardio; Amari, pain mgmt; Jak, neuro Preferred Pharmacy: [facility] [place] Insurance: [place] [facility] Prescription Benefit: yes LW/HPOA: Pt has LW/DPOA and it is on file at [facility]. DPOA Evi Steele. LNOK:Fredy Tapia, son; Fidelina Mckenna, sister Living Arrangements: Pt lives alone in a two story duplex with two steps then three steps to enter. Pt states she was I in ADL's and denies concerns at home. Transportation: Pt drove self and denies concerns with transportation. DME/HHC/SNF: Pt has a walker but does not routinely use, walk in shower with grab bars. Pt denies hx of HHC or SNF stays. Pt states she would like to go home at dc and she does not want to go to a SNF but is unsure if this is possible. Pt received phone call at this time. Pt son is coming to visit later today. Per dialysis nurse, pt has been falling at home. Per nursing notes, pt son agreeable to have pt stay with him. Pt states she is undecided of what will happen after hospitalization, she needs to speak with her son. Pt states no further concerns/needs at this time. CM to follow. Advised pt to ask CM if any further question/concerns/needs arise, voices understanding. Pt Goal: Home Plan: TBD, pt wants to have discussion with son first. Home with son vs SNF vs home.
--- NOTE | 2020-10-20 13:14 | DIALYSIS ---
Hemodialysis completed, using a 3 K bath.Fluid removed was 1300 ml. Patient became restless at end of treatment. BP stable throughout, Mentation seems to be better as she is more awake and alert than earlier. Assisted to chair w OT right after dialysis. Patient used walker w very little help. Next dialysis will be ThursdayOctober 22.
--- NOTE | 2020-10-20 13:16 | PCM.PN.HOSP ---
Documented by User: Julian CHANG 10/20/20 13:24 Subjective Subjective Patient is a 60-year-old female currently being dialyzed, alert and orient x3. Patient's apparent confusion have remained the same from yesterday. While patient is alert and oriented, patients attention span is short and patient loses interest in conversation. Unable to provide much insight into current condition. Objective Data Objective Data Vital Signs: Vital Signs Temp Pulse Resp BP Pulse Ox 98.2 F 103 H 18 170/77 H 92 10/20/20 09:05 10/20/20 09:05 10/20/20 09:05 10/20/20 09:05 10/20/20 11:42 Oxygen Flow Rate (L/min) 3 Oxygen Delivery Method Room Air Weight: 226 lb 13.69 oz Body Mass Index (BMI) 37.8 Intake & Output: Intake and Output for Last 24 Hours 10/18/20 10/19/20 10/20/20 23:59 23:59 23:59 Intake Total 5420 / 5420 3016.67 / 3116.67 460 / 460 Output Total 350 / 350 1675 / 2775 4100 / 4100 Balance 5070 / 5070 1341.67 / 341.67 -3640 / -3640 Medical Nutrition Assessment Dietitian: Nutrition Therapy Diagnosis Start: 10/19/20 11:40 Freq: Status: Active Protocol: Document 10/19/20 12:05 LOCO (Rec: 10/19/20 12:06 LOCO [id number]) Nutrition Malnutrition Evidence of Malnutrition Exists No Clinical Problem Altered Nutrient-Related Laboratory Values Etiology related to renal function Signs/Symptoms as evidenced by Na 125, K 5.2, BUN 65, Cr 7.12 and need for dialysis treatment Status Active Problem Recommendation Dietitian Recommendations/Changes Will change diet to Renal-pro restricted - once dialysis tx is initiated, rec change to Renal-general diet Provide diet education prior to d/c as indicated. Lab / Micro Data Result Diagrams: 10/20/20 06:37 10/20/20 06:37 Labs: Laboratory Results - last 24 hr 10/19/20 18:28: POC Glucose 97 10/19/20 22:02: POC Glucose 84 10/20/20 06:24: POC Glucose 82 10/20/20 06:37: WBC 6.9, RBC 4.43, Hgb 12.4, Hct 37.2, MCV 84.0, MCH 28.0, MCHC 33.3, RDW Std Deviation 48.7 H, RDW Coeff of Aleksandar 15.9 H, Plt Count 216, MPV 11.3, Immature Gran % (Auto) 0.900, Neut % (Auto) 81.2 H, Lymph % (Auto) 8.0 L, Callahan % (Auto) 9.7, Eos % (Auto) 0.1, Baso % (Auto) 0.1, Absolute Neuts (auto) 5.6, Absolute Lymphs (auto) 0.55 L, Nucleated RBC % 0 10/20/20 06:37: Sodium 128 L, Potassium 4.0, Chloride 96 L, Carbon Dioxide 19.0 L, Anion Gap 13, BUN 46 H, Creatinine 4.39 H, Estim Creat Clear Calc 11.92, Est GFR (MDRD) Af Amer 13 L, Est GFR (MDRD) Non-Af 11 L, BUN/Creatinine Ratio 10.5, Glucose 79, Calcium 7.2 L Micro: Microbiology 10/19/20 12:40 Mucosa - Nose SARS-CoV-2 Antigen (Rapid) - Final Radiography Diagnostic Testing: Radiology Impression Chest X-Ray 10/19/20 17:03 IMPRESSION: 1. Right jugular hemodialysis catheter without pneumothorax. 2. Limited inspiratory effort with minimal bibasilar atelectasis. Electronically Signed: Robin CrosbyDO at 21:24 EDT Tel [phone], Service support , Physical Exam Const alert, oriented x3 and no apparent distress HEENT head/scalp atraumatic and moist oral mucous membranes Head and Scalp: normocephalic Eyes EOMs intact bilaterally and conjunctivae normal Neck no lymphadenopathy, supple and no JVD Resp normal respiratory effort, no retractions and no use of accessory muscles Cardio regular rate, regular rhythm, no murmurs and no JVD GI normal to inspection, nondistended, normoactive bowel sounds, soft to palpation and non-tender Extremity normal to inspection, full ROM and no clubbing, cyanosis or edema Skin no rashes or lesions noted, no wounds, skin turgor normal and no jaundice Neuro Neuro Narrative: Difficult to assess due to patient's apparent confusion. Psych Psych Narrative: Difficult to assess due to patient's apparent confusion. Assessment & Plan Assessment/Plan (1) Dehydration: (2) High anion gap metabolic acidosis: PLAN: Day 4: Patient was alert and oriented my examination but was very lethargic and able to provide limited insight into current condition or symptoms. Discharge planning: patient possibly discharge on 10/22. 1) LOVE Creatinine currently 4.39, down from admission, baseline creatinine between 0.7 and 1. Elevated creatinine believed to be due to dehydration on admission. Nephrology following, dialyzed yesterday, will dialyze today and tomorrow. Plan; management per Nephro; dialyze, continue IV hydration, continue Roland, hold hydrochlorothiazide and lisinopril, will continue to monitor BMP 2) anion gap metabolic acidosis secondary to LOVE Anion gap 14. Management as above. 3) acute hyponatremia Currently 128, steadily improving from admission. Contributing to #1, likely due to dehydration prior to admission. Plan; management per nephrology; continue iv fluids. 4) CAD History of cardiac stent. Continue statin, Plavix, Toprol and Crestor. 5) HTN Stable, hold hydrochlorothiazide and lisinopril due to #1. 6) hyperlipidemia Continue Crestor 7) COPD Not in acute exacerbation, continue bronchodilators, continue supplemental oxygen. 8) Depression/anxiety Continue home regimen DVT prophylaxis - heparin Patient seen by Julian Jones PA-C, under the supervision of Dr. Valenzuela. Documented by User: Dr. Luisa Valenzuela MD 10/20/20 13:49 Objective Data Lab / Micro Data Result Diagrams: 10/20/20 06:37 10/20/20 06:37 Charges/Coding Addendum Addendum: This patient was seen in conjunction with BERNARDO Mclain. I have independently interviewed and examined the patient and reviewed pertinent historical, laboratory, and other data. Please refer to BERNARDO Mclain's note for his patient's presentation, findings, and recommendations. I have reviewed and his note and concur with his documentation Patient was seen and examined. Patient had dialysis yesterday, about 1 L of fluid was removed. She is more awake and interactive Physical Exam: Gen: Obese, alert oriented x3, not pale, not jaundiced CVS:HS I +II, regular, no murmurs RESP: Diminished at lung bases GI: BS present and normal, soft, nontender, no palpable organs EXT: Bilateral leg edema +1 ASSESSMENT: 1. LOVE 2. Anion gap metabolic acidosis 3. Hyponatremia 4. CAD status post stent 5. Hypertension 6. Hyperlipidemia Plan: Continue to hold sedatives Continue on dialysis as planned by nephrology Repeat blood work in a.m. Visit Charges Inpatient E&M: 05685 Subs Hosp L2
--- NOTE | 2020-10-20 16:59 | PN.RENAL_ITS ---
Subjective Subjective no new events. looks better Objective Data Objective Data Vital Signs: Vital Signs Temp Pulse Resp BP Pulse Ox 97.4 F L 86 18 153/86 H 92 10/20/20 13:21 10/20/20 15:00 10/20/20 13:21 10/20/20 13:21 10/20/20 13:21 Oxygen Flow Rate (L/min) 3 Oxygen Delivery Method Room Air Weight: 102.9 kg Body Mass Index (BMI) 37.8 Intake & Output: Intake and Output for Last 24 Hours 10/18/20 10/19/20 10/20/20 23:59 23:59 23:59 Intake Total 5420 / 5420 3016.67 / 3116.67 460 / 460 Output Total 350 / 350 1675 / 2775 4100 / 4100 Balance 5070 / 5070 1341.67 / 341.67 -3640 / -3640 Medical Nutrition Assessment Dietitian: Nutrition Therapy Diagnosis Start: 10/19/20 11:40 Freq: Status: Active Protocol: Document 10/19/20 12:05 LOCO (Rec: 10/19/20 12:06 [facility] [id number]) Nutrition Malnutrition Evidence of Malnutrition Exists No Clinical Problem Altered Nutrient-Related Laboratory Values Etiology related to renal function Signs/Symptoms as evidenced by Na 125, K 5.2, BUN 65, Cr 7.12 and need for dialysis treatment Status Active Problem Recommendation Dietitian Recommendations/Changes Will change diet to Renal-pro restricted - once dialysis tx is initiated, rec change to Renal-general diet Provide diet education prior to d/c as indicated. Lab / Micro Data Result Diagrams: 10/20/20 06:37 10/20/20 06:37 Labs: Laboratory Results - last 24 hr 10/19/20 18:28: POC Glucose 97 10/19/20 22:02: POC Glucose 84 10/20/20 06:24: POC Glucose 82 10/20/20 06:37: WBC 6.9, RBC 4.43, Hgb 12.4, Hct 37.2, MCV 84.0, MCH 28.0, MCHC 33.3, RDW Std Deviation 48.7 H, RDW Coeff of Aleksandar 15.9 H, Plt Count 216, MPV 11.3, Immature Gran % (Auto) 0.900, Neut % (Auto) 81.2 H, Lymph % (Auto) 8.0 L, [place] % (Auto) 9.7, Eos % (Auto) 0.1, Baso % (Auto) 0.1, Absolute Neuts (auto) 5.6, Absolute Lymphs (auto) 0.55 L, Nucleated RBC % 0 10/20/20 06:37: Sodium 128 L, Potassium 4.0, Chloride 96 L, Carbon Dioxide 19.0 L, Anion Gap 13, BUN 46 H, Creatinine 4.39 H, Estim Creat Clear Calc 11.92, Est GFR (MDRD) Af Amer 13 L, Est GFR (MDRD) Non-Af 11 L, BUN/Creatinine Ratio 10.5, Glucose 79, Calcium 7.2 L Micro: Microbiology 10/19/20 12:40 Mucosa - Nose SARS-CoV-2 Antigen (Rapid) - Final Radiography Diagnostic Testing: Radiology Impression Chest X-Ray 10/19/20 17:03 IMPRESSION: 1. Right jugular hemodialysis catheter without pneumothorax. 2. Limited inspiratory effort with minimal bibasilar atelectasis. Electronically Signed: Robin RobynDO at 21:24 EDT Tel [phone], Service support , Physical Exam Narrative somewhat confused no obvious distress no pallor no icterus no JVD s1s2 no murmurs lungs clear abdomen soft no organomegaly no edema no cyanosis Assessment & Plan Assessment/Plan (1) Acute kidney injury: PLAN: Normal baseline as of last month. Unclear what happened. I do not see any contrast studies. She has had diarrhea for few days now. In the past her urine toxicology was positive for MDMA, cannabinoids, opioids. No focal muscle tenderness. CPK level is a little high but not too high. CT abdomen w ithout hydronephrosis. Urine analysis shows small amount of blood, no significant proteinuria. possible ischemic ATN. remains anuric. tunneled line places yesterday. HD yesterday and today. clinically better. (2) Acute hyponatremia: PLAN: Noted with a sodium of 118. better today. can correct to normal now (3) Hyperphosphatemia: PLAN: due to LOVE. also causing hypocalcemia. on binders. better
[2020-10-20] MEDS: Atorvastatin Calcium 80 MG Tablet PO (21:36)
[2020-10-20] MEDS: hydrALAZINE 20 MG/ML Vial 5 MG IV (22:49)
[2020-10-20] MEDS: 0.9% Saline Lock 10 ML Syringe IV (22:50)
[2020-10-21] VITALS (13 sets, daily range): BP systolic 128–196; BP diastolic 79–123; PULSE 79–143; RESP 16–20; TEMP 36–37.1; O2SAT 92–95
[2020-10-21 06:27] LABS: Absolute Lymphocyte Count 0.91 X10^3/uL (0.83-4.51); Absolute Neutrophil Count 5.4 X10^3/uL (2.0-7.7); Basophil# 0.04 X10^3/uL; Basophil% 0.5 % (0-1); Eosinophil# 0.02 X10^3/uL; Eosinophils% 0.3 % (0-5); Hematocrit 39.2 % (37-47); Hemoglobin 13.3 g/dL (12.0-15.0); Lymphocyte # 0.91 X10^3/ul (0.83-4.51); Lymphocyte % 12.2 % (19-41); Mean Corp Hgb Conc 33.9 g/dL (32-36); Mean Corpuscular Hgb 27.8 pg (27.0-32.0); Mean Platelet Vol. 10.4 fl (6.2-12.0); Monocyte% 13.4 % (0-10); NRBC Flagged by Analyzer 0 % (0-5); Neutrophil # 5.37 X10^3/uL (2.7-7.7); Neutrophil % 72.3 % (47-70); Platelet Count 247 K/mm3 (150-450); RBC Distribution Width CV 15.9 % (11.6-14.6); RBC Distribution Width SD 47.9 fl (35.1-43.9); Red Blood Count 4.78 M/mm3 (4.2-5.4); White Blood Count 7.4 K/mm3 (4.4-11.0)
[2020-10-21 06:59] LABS: Anion Gap 10 (5-15); BUN 26 mg/dL (7-18); BUN/Creat Ratio 12.9 RATIO (10-20); Calcium,Total 8.6 mg/dL (8.5-10.1); Chloride 96 mmol/L (98-107); Creatinine, Serum 2.02 mg/dL (0.55-1.02); EST Glomerular Filtration Rate 27 mL/min (>60); Est Glom Filt Rate - Afr Amer 32 mL/min (>60); Estimated Creatinine Clearance 25.89 ml/min; Glucose 94 mg/dL (74-106); Potassium 3.3 mmol/L (3.5-5.1); Sodium Level 132 mmol/L (136-145)
[2020-10-21] MEDS: Potassium Chloride Oral Tablet 20 MEQ 60 MEQ PO (10:15)
[2020-10-21] MEDS: Aspirin E.C. 81 MG Tablet PO (10:15)
[2020-10-21] MEDS: SEVELAMER CARBONATE 800 MG TABLET 1600 MG PO ×2 (10:15→11:54)
[2020-10-21] MEDS: Nystatin Ointment 1 APPLIC TOPICAL ×2 (10:16→21:32)
[2020-10-21] MEDS: Acetaminophen 500 MG Tablet 1000 MG PO (10:17)
[2020-10-21] MEDS: Gabapentin 800 MG Tablet PO (10:25)
[2020-10-21] MEDS: hydrALAZINE 20 MG/ML Vial 5 MG IV (10:25)
[2020-10-21] MEDS: 0.9% Saline Lock 10 ML Syringe IV (10:26)
--- NOTE | 2020-10-21 11:38 | PN.HOSP_ITS ---
Documented by User: Julian CHNAG 10/21/20 11:43 Subjective Subjective Patient is a 60-year-old female comfortably resting in bed, alert and oriented x3. Patient mentation has improved greatly from the past couple days as patient is now able to hold conversation and provide insight into her current condition with full attention. Objective Data Objective Data Vital Signs: Vital Signs Temp Pulse Resp BP Pulse Ox 97.9 F 101 H 20 H 196/123 H 92 10/21/20 10:10 10/21/20 10:25 10/21/20 10:10 10/21/20 10:10 10/21/20 10:10 Oxygen Flow Rate (L/min) 2 Oxygen Delivery Method Room Air Weight: 226 lb 13.69 oz Body Mass Index (BMI) 37.8 Intake & Output: Intake and Output for Last 24 Hours 10/19/20 10/20/20 10/21/20 23:59 23:59 23:59 Intake Total 3016.67 / 3116.67 580 / 1180 1200 / 1200 Output Total 1675 / 2775 4600 / 6525 3900 / 3900 Balance 1341.67 / 341.67 -4020 / -5345 -2700 / -2700 Medical Nutrition Assessment Dietitian: Nutrition Therapy Diagnosis Start: 10/19/20 11:40 Freq: Status: Active Protocol: Document 10/19/20 12:05 LOCO (Rec: 10/19/20 12:06 LOCO [id number]) Nutrition Malnutrition Evidence of Malnutrition Exists No Clinical Problem Altered Nutrient-Related Laboratory Values Etiology related to renal function Signs/Symptoms as evidenced by Na 125, K 5.2, BUN 65, Cr 7.12 and need for dialysis treatment Status Active Problem Recommendation Dietitian Recommendations/Changes Will change diet to Renal-pro restricted - once dialysis tx is initiated, rec change to Renal-general diet Provide diet education prior to d/c as indicated. Lab / Micro Data Result Diagrams: 10/21/20 05:56 10/21/20 05:56 Labs: Laboratory Results - last 24 hr 10/21/20 05:56: WBC 7.4, RBC 4.78, Hgb 13.3, Hct 39.2, MCV 82.0, MCH 27.8, MCHC 33.9, RDW Std Deviation 47.9 H, RDW Coeff of Aleksandar 15.9 H, Plt Count 247, MPV 10.4, Immature Gran % (Auto) 1.300 H, Neut % (Auto) 72.3 H, Lymph % (Auto) 12.2 L, [place] % (Auto) 13.4 H, Eos % (Auto) 0.3, Baso % (Auto) 0.5, Absolute Neuts (auto) 5.4, Absolute Lymphs (auto) 0.91, Nucleated RBC % 0 10/21/20 05:56: Sodium 132 L, Potassium 3.3 L, Chloride 96 L, Carbon Dioxide 26.0, Anion Gap 10, BUN 26 H, Creatinine 2.02 H, Estim Creat Clear Calc 25.89, Est GFR (MDRD) Af Amer 32 L, Est GFR (MDRD) Non-Af 27 L, BUN/Creatinine Ratio 12.9, Glucose 94, Calcium 8.6 10/21/20 05:56: Magnesium 2.0 Micro: Microbiology 10/19/20 12:40 Mucosa - Nose SARS-CoV-2 Antigen (Rapid) - Final Physical Exam Const alert, oriented x3 and no apparent distress HEENT head/scalp atraumatic and moist oral mucous membranes Head and Scalp: normocephalic Eyes PERRL, EOMs intact bilaterally and conjunctivae normal Neck no lymphadenopathy, supple and no JVD Resp normal respiratory effort, no retractions, no use of accessory muscles and clear to auscultation bilaterally Cardio regular rate, regular rhythm, no murmurs and no JVD GI normal to inspection, nondistended, normoactive bowel sounds, soft to palpation and non-tender Extremity normal to inspection, full ROM and no clubbing, cyanosis or edema Skin no rashes or lesions noted, no wounds and skin turgor normal Neuro CN's II-XII intact bilaterally Psych affect normal Assessment & Plan Assessment/Plan (1) Dehydration: (2) High anion gap metabolic acidosis: PLAN: Day 5: See subjective.. Discharge planning: patient possibly discharge on 10/22, patient may return home or go to stay with son. Does not want to go to SNF. 1) LOVE Creatinine currently 2.02, down from 7.4 at admission , baseline creatinine between 0.7 and 1. Elevated creatinine believed to be due to dehydration on admission. Nephrology following, dialyzed yesterday, will dialyze tomorrow. Plan; management per Nephro; dialyze, continue IV hydration, continue Roland, hold hydrochlorothiazide and lisinopril, will continue to monitor BMP 2) anion gap metabolic acidosis secondary to LOVE Anion gap 14. Management as above. 3) acute hyponatremia Currently 128, steadily improving from admission. Contributing to #1, likely due to dehydration prior to admission. Plan; management per nephrology; continue iv fluids. 4) CAD History of cardiac stent. Continue statin, Plavix, Toprol and Crestor. 5) Hypertensive urgency Blood pressure spiked to 196/123, unclear etiology. IV hydralazine given. Plan; continue to monitor HTN, continue to hold home hypertensive regimen given #1. 6) hyperlipidemia Continue Crestor 7) COPD Not in acute exacerbation, continue bronchodilators, continue supplemental oxygen. 8) Depression/anxiety Continue home regimen 9) HTN As above. DVT prophylaxis - heparin Patient seen by Julian Jones PA-C, under the supervision of Dr. Valenzuela. Documented by User: Dr. Luisa Valenzuela MD 10/21/20 15:40 Objective Data Lab / Micro Data Result Diagrams: 10/21/20 05:56 10/21/20 05:56 Charges/Coding Addendum Addendum: This patient was seen in conjunction with BERNARDO Mclain. I have independently interviewed and examined the patient and reviewed pertinent hi storical, laboratory, and other data. Please refer to BERNARDO Mclain's note for his patient's presentation, findings, and recommendations. I have reviewed and his note and concur with his documentation Patient was seen and examined. Patient had 1300 mls removed at dialysis. Patient has had a lot of urine output -polyuric phase of ATN. Urine in her Roland catheter is clear. Physical Exam: Gen: Obese, alert oriented x3, not pale, not jaundiced CVS:HS I +II, regular, no murmurs RESP: Diminished at lung bases GI: BS present and normal, soft, nontender, no palpable organs EXT: Bilateral leg edema +1 ASSESSMENT: 1. LOVE 2. Anion gap metabolic acidosis 3. Hyponatremia 4. CAD status post stent 5. Hypertension 6. Hyperlipidemia Plan: Continue to monitor renal function She may not need dialysis anymore We will continue to monitor for discharge planning Roland catheter to be removed for strict I's and O's maintain Visit Charges Inpatient E&M: 32619 Subs Hosp L2
[2020-10-21] MEDS: HYDROcodone Bitartrate/Apap 5/325 Tablet PO ×2 (14:20→21:30)
--- NOTE | 2020-10-21 18:33 | PCM.PN.REN ---
Subjective Subjective NO NEW COMPLAINTS Objective Data Objective Data Vital Signs: Vital Signs Temp Pulse Resp BP Pulse Ox 96.8 F L 101 H 20 H 143/95 H 92 10/21/20 15:56 10/21/20 15:56 10/21/20 15:56 10/21/20 15:56 10/21/20 15:56 Oxygen Flow Rate (L/min) 2 Oxygen Delivery Method Room Air Weight: 102.9 kg Body Mass Index (BMI) 37.8 Intake & Output: Intake and Output for Last 24 Hours 10/19/20 10/20/20 10/21/20 23:59 23:59 23:59 Intake Total 3016.67 / 3116.67 580 / 1180 1680 / 1680 Output Total 1675 / 2775 4600 / 6525 6150 / 6150 Balance 1341.67 / 341.67 -4020 / -5345 -4470 / -4470 Medical Nutrition Assessment Dietitian: Nutrition Therapy Diagnosis Start: 10/19/20 11:40 Freq: Status: Active Protocol: Document 10/19/20 12:05 [facility] (Rec: 10/19/20 12:06 [facility] [id number]) Nutrition Malnutrition Evidence of Malnutrition Exists No Clinical Problem Altered Nutrient-Related Laboratory Values Etiology related to renal function Signs/Symptoms as evidenced by Na 125, K 5.2, BUN 65, Cr 7.12 and need for dialysis treatment Status Active Problem Recommendation Dietitian Recommendations/Changes Will change diet to Renal-pro restricted - once dialysis tx is initiated, rec change to Renal-general diet Provide diet education prior to d/c as indicated. Lab / Micro Data Result Diagrams: 10/21/20 05:56 10/21/20 05:56 Labs: Laboratory Results - last 24 hr 10/21/20 05:56: WBC 7.4, RBC 4.78, Hgb 13.3, Hct 39.2, MCV 82.0, MCH 27.8, MCHC 33.9, RDW Std Deviation 47.9 H, RDW Coeff of Aleksandar 15.9 H, Plt Count 247, MPV 10.4, Immature Gran % (Auto) 1.300 H, Neut % (Auto) 72.3 H, Lymph % (Auto) 12.2 L, [place] % (Auto) 13.4 H, Eos % (Auto) 0.3, Baso % (Auto) 0.5, Absolute Neuts (auto) 5.4, Absolute Lymphs (auto) 0.91, Nucleated RBC % 0 10/21/20 05:56: Sodium 132 L, Potassium 3.3 L, Chloride 96 L, Carbon Dioxide 26.0, Anion Gap 10, BUN 26 H, Creatinine 2.02 H, Estim Creat Clear Calc 25.89, Est GFR (MDRD) Af Amer 32 L, Est GFR (MDRD) Non-Af 27 L, BUN/Creatinine Ratio 12.9, Glucose 94, Calcium 8.6 10/21/20 05:56: Magnesium 2.0 Micro: Microbiology 10/19/20 12:40 Mucosa - Nose SARS-CoV-2 Antigen (Rapid) - Final Physical Exam Narrative aao3 no obvious distress no pallor no icterus no JVD s1s2 no murmurs lungs clear abdomen soft no organomegaly no edema no cyanosis Assessment & Plan Assessment/Plan (1) Acute kidney injury: PLAN: Normal baseline as of last month. Unclear what happened. I do not see any contrast studies. She has had diarrhea for few days now. In the past her urine toxicology was positive for MDMA, cannabinoids, opioids. No focal muscle tenderness. CPK level is a little high but not too high. CT abdomen without hydronephrosis. Urine analysis shows small amount of blood, no significant proteinuria. possible ischemic ATN. remains anuric. tunneled line IN PLACE. SKIP hd TODAY. GOOD URINE OUTPUT. POSSIBLE RECOVERY (2) Acute hyponatremia: PLAN: Noted with a sodium of 118. better today. (3) Hyperphosphatemia: PLAN: due to LOVE. also causing hypocalcemia. on binders. better
[2020-10-21] MEDS: Atorvastatin Calcium 80 MG Tablet PO (21:32)
[2020-10-22] VITALS (9 sets, daily range): BP systolic 150–168; BP diastolic 88–110; PULSE 85–99; RESP 16–18; TEMP 36.1–36.6; O2SAT 93–95
[2020-10-22] MEDS: hydrALAZINE 20 MG/ML Vial 5 MG IV (03:13)
[2020-10-22] MEDS: 0.9% Saline Lock 10 ML Syringe IV (03:14)
[2020-10-22] MEDS: HYDROcodone Bitartrate/Apap 5/325 Tablet PO ×2 (05:04→13:28)
[2020-10-22 06:14] LABS: Absolute Lymphocyte Count 1.78 X10^3/uL (0.83-4.51); Absolute Neutrophil Count 4.7 X10^3/uL (2.0-7.7); Basophil# 0.07 X10^3/uL; Basophil% 0.9 % (0-1); Eosinophil# 0.06 X10^3/uL; Eosinophils% 0.8 % (0-5); Hemoglobin 13.7 g/dL (12.0-15.0); Lymphocyte # 1.78 X10^3/ul (0.83-4.51); Lymphocyte % 22.8 % (19-41); Mean Corp Hgb Conc 33.4 g/dL (32-36); Mean Corpuscular Hgb 27.7 pg (27.0-32.0); Mean Platelet Vol. 10.6 fl (6.2-12.0); Monocyte# 0.99 X10^3/uL; Monocyte% 12.7 % (0-10); NRBC Flagged by Analyzer 0 % (0-5); Neutrophil # 4.67 X10^3/uL (2.7-7.7); Platelet Count 262 K/mm3 (150-450); RBC Distribution Width CV 15.9 % (11.6-14.6); RBC Distribution Width SD 48.1 fl (35.1-43.9); Red Blood Count 4.94 M/mm3 (4.2-5.4); White Blood Count 7.8 K/mm3 (4.4-11.0)
[2020-10-22 06:32] LABS: Albumin, Serum 2.5 g/dL (3.2-5.0); BUN 28 mg/dL (7-18); BUN/Creat Ratio 15.9 RATIO (10-20); Chloride 94 mmol/L (98-107); Creatinine, Serum 1.76 mg/dL (0.55-1.02); EST Glomerular Filtration Rate 31 mL/min (>60); Est Glom Filt Rate - Afr Amer 38 mL/min (>60); Estimated Creatinine Clearance 29.72 ml/min; Glucose 104 mg/dL (74-106); Phosphorus 2.5 mg/dL (2.5-4.9); Potassium 3.7 mmol/L (3.5-5.1); Sodium Level 131 mmol/L (136-145)
[2020-10-22] MEDS: Aspirin E.C. 81 MG Tablet PO (08:07)
[2020-10-22] MEDS: SEVELAMER CARBONATE 800 MG TABLET 1600 MG PO ×2 (08:07→11:18)
[2020-10-22] MEDS: Acetaminophen 500 MG Tablet 1000 MG PO (08:07)
[2020-10-22] MEDS: Gabapentin 800 MG Tablet PO (08:08)
[2020-10-22] MEDS: Nystatin Ointment 1 APPLIC TOPICAL (08:08)
--- NOTE | 2020-10-22 10:47 | DCINST_ITS ---
Discharge Instructions Diet Discharge Diet: No restrictions Activity Discharge Activity: Return to Normal Activity Weight Bearing Status: Weight bearing as tolerated Dressing / Incision Call your doctor if you observe: Fever of 101 or Higher, Numbness or Tingling, Shortness of breath, Dizziness, Chest pain, Increased palpitations (irregular heartbeat) and Calf discomfort Follow Up Care Please Follow Up With: Primary care provider When: Within the next two weeks. Test Results: Test results from this visit will be discussed in further detail at your follow-up appointment, if applicable. Discharge Plan Admission Admit Date/Time: 10/17/20 16:00 Primary Reason for Your Visit: Severed dehydration Attending Provider: Rigo Auguste Primary Care Provider: Ana Oates Consulting Providers: Ellen Bolden ; Benedicto Giles Discharge Orders/Prescriptions Prescriptions: New gabapentin 800 mg tablet 800 mg PO BID Qty: 60 RF: 0 trazodone 100 mg tablet 200 mg PO QHS Qty: 60 RF: 0 Continued aspirin 81 MG tablet 81 mg PO DAILY@0800 RF: 0 acetaminophen 500 MG tablet 1,000 mg PO BID RF: 0 buspirone 10 mg tablet 20 mg PO TID RF: 0 hydrocodone-acetaminophen 7.5-325 mg tablet 1 tab PO TID RF: 0 metoprolol tartrate 50 mg tablet 50 mg PO BID RF: 0 tizanidine 4 MG tablet 4 mg PO TID PRN (Reason: muscle spasm/pain) Qty: 0 RF: 0 escitalopram oxalate [Lexapro] 20 mg tablet 20 mg PO DAILY RF: 0 rosuvastatin 40 mg tablet 40 mg PO DAILY Qty: 90 RF: 3 trazodone 100 mg tablet 200 mg PO QHS Qty: 60 RF: 2 clopidogrel 75 mg tablet 75 mg PO DAILY Qty: 90 RF: 3 albuterol sulfate 90 mcg/actuation HFA aerosol inhaler 2 puff INHALATION Q6H PRN (Reason: shortness of breath or wheezing) Qty: 18 RF: 2 Held lisinopril 20 mg tablet 20 mg PO BID RF: 0 Hold Instructions: Resume on 11/28/20. Hold until told to resume by [employer]. hydrochlorothiazide 12.5 mg tablet 12.5 mg PO QODAY RF: 0 Hold Instructions: Resume on 11/28/20. Hold until told to resume by [employer]. Discontinued gabapentin 800 mg tablet 800 mg PO 4X/DAY RF: 0 Referrals / Follow Up: Ana Oates MD [Primary Care Provider] - Within 2 Weeks Ellen Bolden MD [STAFF PHYSICIAN] - Within 2 Weeks Disposition Disposition (needs filled in before D/C Order can be placed): Home, Self Care
--- NOTE | 2020-10-22 11:17 | CASEMGMT ---
Therapy is recommending HHC for pt at discharge. This RN CM to room and pt updated on recommendations. Pt declines need for HHC at this time and states she will be going to stay with her son for a couple weeks. Pt states that she will take needed equipment to her son's home and pt is aware that if she feels she needs further therapy once home to contact PCP, voices understanding. Pt voices no further questions/concerns/needs. Pt awaiting nephro to see today prior to discharge. CM to follow for any further discharge planning/needs. [place] RN CM
--- NOTE | 2020-10-22 12:20 | PCM.DC.SUM ---
Documented by User: Julian CHANG 10/22/20 12:33 Providers Date of Admission: 10/17/20 Primary Care Physician: Dr. Ana Oates MD Consultations 10/18/20 12:18 Consult: Nephrology Routine Consulting Provider: Ellen Bolden Reason for Consult: Hyponatremia EMERGENT Consult: No Notified: Yes Date Notified: 10/18/20 Time Notified: 12:50 Method of Notification: Answering Service 10/19/20 07:35 Consult: General Surgery Routine Consulting Provider: Benedicto Giles Reason for Consult: Dialysis catheter EMERGENT Consult: No Notified: Yes Date Notified: 10/19/20 Time Notified: 07:51 Method of Notification: Text Reason For Visit: LOVE, HYPONATREMIA, FREQUENT FALLS, BACK PAIN Diagnosis Discharge Diagnosis (1) Acute kidney injury: Status: Acute Code(s): N17.9 - Acute kidney failure, unspecified (2) Acute hyponatremia: Status: Acute Code(s): E87.1 - Hypo-osmolality and hyponatremia (3) Hyperphosphatemia: Status: Acute Code(s): E83.39 - Other disorders of phosphorus metabolism Medications at Discharge Home Medications aspirin 81 mg PO DAILY@0800 10/29/17 acetaminophen 1,000 mg PO BID 03/18/18 lisinopril 20 mg tablet 20 mg PO BID tab 05/09/20 rosuvastatin 40 mg tablet 40 mg PO DAILY #90 tab 05/17/20 trazodone 100 mg tablet 200 mg PO QHS #60 tab 08/01/20 clopidogrel 75 mg tablet 75 mg PO DAILY #90 tab 08/17/20 buspirone 10 mg tablet 20 mg PO TID tab 08/20/20 hydrochlorothiazide 12.5 mg PO QODAY 08/28/20 hydrocodone-acetaminophen 1 tab PO TID 08/29/20 metoprolol tartrate 50 mg PO BID 08/29/20 tizanidine 4 mg PO TID PRN #0 tab 09/01/20 albuterol sulfate 90 mcg/actuation aerosol inhaler 2 puff INHALATION Q6H PRN #18 gm 10/05/20 escitalopram oxalate [Lexapro] 20 mg PO DAILY 10/17/20 gabapentin 800 mg PO BID #60 tab 10/22/20 trazodone 200 mg PO QHS #60 tab 10/22/20 Hospital Course Procedures Dialysis Summary of Care Provided Minutes Spent on Discharge: 35 Hospital Course: Disposition: Patient to be discharged home with son, no additional home health care needs or therapies identified. 1) LOVE Creatinine currently 1.7, down from 7.4 at admission , baseline creatinine between 0.7 and 1. Elevated creatinine believed to be due to dehydration on admission. Nephrology following; dialysis no longer line indicated, patient okay for discharge, follow-up with pepper picker within the next 2 weeks. Tunneled dialysis catheter to be removed prior to discharge, per nephrology. 2) anion gap metabolic acidosis secondary to LOVE Resolved, as above. 3) acute hyponatremia Currently 131, as above. 4) CAD History of cardiac stent. Continue statin, Plavix, Toprol and Crestor. 5) Hypertensive urgency Resolved. 6) hyperlipidemia Continue Crestor 7) COPD Continue home COPD regimen. 8) Depression/anxiety Continue trazodone, tizanidine and Lexapro. 30-day prescription for trazodone written as patient informs provider that she is out of her current prescription. 9) HTN Metoprolol continued. Hold hydrochlorothiazide and lisinopril until told to resume by pepper picker. Patient seen by Julian Jones PA-C, under the supervision of Dr. Auguste Physical Exam Narrative Patient is a 60-year-old female comfortably resting in bed, alert and oriented x3. Patient reports significant improvement in her mentation from admission. Denies chest pain, shortness of breath, palpitations, hemoptysis, sputum production, fever, chills, N/V/D. Const alert, oriented x3 and no apparent distress HEENT normocephalic, head/scalp atraumatic and hearing grossly normal bilaterally Eyes PERRL, EOMs intact bilaterally and conjunctivae normal Neck no lymphadenopathy, supple and no JVD Resp normal respiratory effort, no retractions, no use of accessory muscles and clear to auscultation bilaterally Cardio regular rate, regular rhythm, no murmurs and no JVD GI normal to inspection, nondistended, normoactive bowel sounds, soft to palpation and non-tender Extremity normal to inspection, full ROM and no clubbing, cyanosis or edema Skin no rashes or lesions noted, no wounds and skin turgor normal Neuro CN's II-XII intact bilaterally Psych affect normal Medical Records Data Medical Nutrition Assessment Dietitian: Nutrition Therapy Diagnosis Start: 10/19/20 11:40 Freq: Status: Active Protocol: Document 10/22/20 11:56 RMA (Rec: 10/22/20 11:57 RMA [id number]) Nutrition Malnutrition Evidence of Malnutrition Exists No Clinical Problem Altered Nutrient-Related Laboratory Values Etiology related to renal dysfunction Signs/Symptoms as evidenced by Na 125, K 5.2, BUN 65, Cr 7.12 and need for dialysis treatment Status Resolved Problem Recommendation Dietitian Recommendations/Changes Will change diet to Cardiac/ low sodium with fluid restriction as needed. Encouraged pt to call RD as needed regarding diet/ nutrition. Weight / BMI Weight Weight: 226 lb 13.69 oz Body Mass Index (BMI) 37.8 ABG / Lab / Microbiology Data Result Diagrams: 10/22/20 05:30 10/22/20 05:30 Laboratory: Laboratory Results - last 24 hr 10/22/20 05:30: WBC 7.8, RBC 4.94, Hgb 13.7, Hct 41.0, MCV 83.0, MCH 27.7, MCHC 33.4, RDW Std Deviation 48.1 H, RDW Coeff of Aleksandar 15.9 H, Plt Count 262, MPV 10.6, Immature Gran % (Auto) 2.800 H, Neut % (Auto) 60.0, Lymph % (Auto) 22.8, [place] % (Auto) 12.7 H, Eos % (Auto) 0.8, Baso % (Auto) 0.9, Absolute Neuts (auto) 4.7, Absolute Lymphs (auto) 1.78, Nucleated RBC % 0 10/22/20 05:30: Sodium 131 L, Potassium 3.7, Chloride 94 L, Carbon Dioxide 29.0, BUN 28 H, Creatinine 1.76 H, Estim Creat Clear Calc 29.72, Est GFR (MDRD) Af Amer 38 L, Est GFR (MDRD) Non-Af 31 L, BUN/Creatinine Ratio 15.9, Glucose 104, Calcium 9.0, Phosphorus 2.5, Albumin 2.5 L Microbiology: Microbiology 10/19/20 12:40 Mucosa - Nose SARS-CoV-2 Antigen (Rapid) - Final D/C Instructions Discharge Diet: No restrictions Weight Bearing Status: Weight bearing as tolerated Call your doctor if you observe: Fever of 101 or Higher, Numbness or Tingling, Shortness of breath, Dizziness, Chest pain, Increased palpitations (irregular heartbeat) and Calf discomfort Please Follow Up With: Primary care provider When: Within the next two weeks. Meaningful Use Info Meaningful Use Diagnoses (Choose all that apply): None applicable Discharge Plan Admission Admit Date/Time: 10/17/20 16:00 Primary Reason for Your Visit: Severed dehydration Attending Provider: Rigo Auguste Primary Care Provider: Ana Oates Consulting Providers: Ellen Bolden ; Benedicto Giles Discharge Orders/Prescriptions Prescriptions: New gabapentin 800 mg tablet 800 mg PO BID Qty: 60 RF: 0 trazodone 100 mg tablet 200 mg PO QHS Qty: 60 RF: 0 Continued aspirin 81 MG tablet 81 mg PO DAILY@0800 RF: 0 acetaminophen 500 MG tablet 1,000 mg PO BID RF: 0 buspirone 10 mg tablet 20 mg PO TID RF: 0 hydrocodone-acetaminophen 7.5-325 mg tablet 1 tab PO TID RF: 0 metoprolol tartrate 50 mg tablet 50 mg PO BID RF: 0 tizanidine 4 MG tablet 4 mg PO TID PRN (Reason: muscle spasm/pain) Qty: 0 RF: 0 escitalopram oxalate [Lexapro] 20 mg tablet 20 mg PO DAILY RF: 0 rosuvastatin 40 mg tablet 40 mg PO DAILY Qty: 90 RF: 3 trazodone 100 mg tablet 200 mg PO QHS Qty: 60 RF: 2 clopidogrel 75 mg tablet 75 mg PO DAILY Qty: 90 RF: 3 albuterol sulfate 90 mcg/actuation HFA aerosol inhaler 2 puff INHALATION Q6H PRN (Reason: shortness of breath or wheezing) Qty: 18 RF: 2 Held lisinopril 20 mg tablet 20 mg PO BID RF: 0 Hold Instructions: Resume on 11/28/20. Hold until told to resume by Human Resources Recruiter. hydrochlorothiazide 12.5 mg tablet 12.5 mg PO QODAY RF: 0 Hold Instructions: Resume on 11/28/20. Hold until told to resume by Human Resources Recruiter. Discontinued gabapentin 800 mg tablet 800 mg PO 4X/DAY RF: 0 Referrals / Follow Up: Ana Oates MD [Primary Care Provider] - 11/07/20 8:15 am Ellen Bolden MD [STAFF PHYSICIAN] - Within 2 Weeks Disposition Disposition (needs filled in before D/C Order can be placed): Home, Self Care Documented by User: Dr. Rigo Auguste DO 10/22/20 20:39 Providers Date of Admission: 10/17/20 Reason For Visit: LOVE, HYPONATREMIA, FREQUENT FALLS, BACK PAIN Medications at Discharge Home Medications aspirin 81 mg PO DAILY@0800 10/29/17 acetaminophen 1,000 mg PO BID 03/18/18 lisinopril 20 mg tablet 20 mg PO BID tab 05/09/20 rosuvastatin 40 mg tablet 40 mg PO DAILY #90 tab 05/17/20 trazodone 100 mg tablet 200 mg PO QHS #60 tab 08/01/20 clopidogrel 75 mg tablet 75 mg PO DAILY #90 tab 08/17/20 buspirone 10 mg tablet 20 mg PO TID tab 08/20/20 hydrochlorothiazide 12.5 mg PO QODAY 08/28/20 hydrocodone-acetaminophen 1 tab PO TID 08/29/20 metoprolol tartrate 50 mg PO BID 08/29/20 tizanidine 4 mg PO TID PRN #0 tab 09/01/20 albuterol sulfate 90 mcg/actuation aerosol inhaler 2 puff INHALATION Q6H PRN #18 gm 10/05/20 escitalopram oxalate [Lexapro] 20 mg PO DAILY 10/17/20 gabapentin 800 mg PO BID #60 tab 10/22/20 trazodone 200 mg PO QHS #60 tab 10/22/20 ABG / Lab / Microbiology Data Result Diagrams: 10/22/20 05:30 10/22/20 05:30 Discharge Plan Admission Admit Date/Time: 10/17/20 16:00 Primary Reason for Your Visit: Severed dehydration Attending Provider: Rigo Auguste Primary Care Provider: Ana Oates Consulting Providers: Ellen Bolden ; Benedicto Giles Discharge Orders/Prescriptions Prescriptions: New gabapentin 800 mg tablet 800 mg PO BID Qty: 60 RF: 0 trazodone 100 mg tablet 200 mg PO QHS Qty: 60 RF: 0 Continued aspirin 81 MG tablet 81 mg PO DAILY@0800 RF: 0 acetaminophen 500 MG tablet 1,000 mg PO BID RF: 0 buspirone 10 mg tablet 20 mg PO TID RF: 0 hydrocodone-acetaminophen 7.5-325 mg tablet 1 tab PO TID RF: 0 metoprolol tartrate 50 mg tablet 50 mg PO BID RF: 0 tizanidine 4 MG tablet 4 mg PO TID PRN (Reason: muscle spasm/pain) Qty: 0 RF: 0 escitalopram oxalate [Lexapro] 20 mg tablet 20 mg PO DAILY RF: 0 rosuvastatin 40 mg tablet 40 mg PO DAILY Qty: 90 RF: 3 trazodone 100 mg tablet 200 mg PO QHS Qty: 60 RF: 2 clopidogrel 75 mg tablet 75 mg PO DAILY Qty: 90 RF: 3 albuterol sulfate 90 mcg/actuation HFA aerosol inhaler 2 puff INHALATION Q6H PRN (Reason: shortness of breath or wheezing) Qty: 18 RF: 2 Held lisinopril 20 mg tablet 20 mg PO BID RF: 0 Hold Instructions: Resume on 11/28/20. Hold until told to resume by Human Resources Recruiter. hydrochlorothiazide 12.5 mg tablet 12.5 mg PO QODAY RF: 0 Hold Instructions: Resume on 11/28/20. Hold until told to resume by Human Resources Recruiter. Discontinued gabapentin 800 mg tablet 800 mg PO 4X/DAY RF: 0 Referrals / Follow Up: Ana Oates MD [Primary Care Provider] - 11/07/20 8:15 am Ellen Bolden MD [STAFF PHYSICIAN] - Within 2 Weeks Disposition Disposition (needs filled in before D/C Order can be placed): Home, Self Care Charges/Coding Addendum Addendum: Patient was seen and examined today independently of Julian Jones, nephrology feels that the patient is stable for discharge home and requested that the patient's tunneled dialysis catheter be removed. I contacted general surgery to have this done. On examination she appeared in good health and spirits, she does not appear to be in any distress. Vital signs as documented. Skin warm and dry and without overt rashes. Neck without JVD, thyroid appears normal, trachea is midline, neck is supple. Lungs clear, normal air movement was noted. Heart exam notable for regular rhythm, normal sounds and absence of murmurs, rubs or gallops. Abdomen unremarkable and without evidence of organomegaly, masses, or abdominal aortic enlargement, bowel sounds are present in all 4 quadrants, no abdominal tenderness was noted. Extremities nonedematous, no cyanosis was noted, no clubbing was noted. Neuro: Cranial nerves II through XII are grossly intact, no focal motor deficits were noted, sensation to light touch and pinprick is intact, motor exam 5/5 throughout. Psych: Patient is alert and oriented x3, she does not appear anxious or depressed, she does not appear agitated. Patient appears stable for discharge at this time, I have reviewed Julian Jones's discharge summary including his medical assessment and plan of care and with the above additions endorse it. Visit Charges Inpatient E&M: 31702 Disch Hosp
--- NOTE | 2020-10-22 15:59 | OP.PCM_ITS ---
Problems Associated Problem List Diagnoses (1) Vascular catheter fitting or adjustment: Report of Operation Date of Procedure: 10/22/20 Pre-Operative Diagnosis: Vascular fitting and adjustment Post-Operative Diagnosis: Same Surgery/Procedure Performed:: Removal of right IJ tunneled dialysis catheter Surgeon: Benedicto Giles heavy equipment operating engineer: None Type of Anesthesia: Local Description of Procedure: Patient was placed supine on the bed. Right chest area was sterilely prepped and draped to stay sutures were removed from the dialysis catheter local was injected from his insertion site I remove the previous 3-0 Vicryl suture the dialysis catheter easily slid out without any difficulty I inspected the catheter it was in its entirety. Steri-Strips were applied sterile dressings were applied and the patient tolerated the procedure well. The catheter was discarded appropriately. Admit VTE Documentation VTE Present on Admission: No VTE Mechan Device Prophylaxis: SCD's VTE Pharm Prophylaxis ordered?: No Reason prophylaxis not ordered:: Treatment Not Indicated
--- NOTE | 2020-10-22 17:21 | PCM.PN.REN ---
Subjective Subjective No new complaints Objective Data Objective Data Vital Signs: Vital Signs Temp Pulse Resp BP Pulse Ox 97.8 F 88 18 150/95 H 95 10/22/20 15:30 10/22/20 15:30 10/22/20 15:30 10/22/20 15:30 10/22/20 15:30 Oxygen Flow Rate (L/min) 2 Oxygen Delivery Method Room Air Weight: 102.9 kg Body Mass Index (BMI) 37.8 Intake & Output: Intake and Output for Last 24 Hours 10/20/20 10/21/20 10/22/20 23:59 23:59 23:59 Intake Total 580 / 1180 1680 / 1680 200 / 200 Output Total 4600 / 6525 6500 / 6500 300 / 300 Balance -4020 / -5345 -4820 / -4820 -100 / -100 Medical Nutrition Assessment Dietitian: Nutrition Therapy Diagnosis Start: 10/19/20 11:40 Freq: Status: Active Protocol: Document 10/22/20 11:56 RMA (Rec: 10/22/20 11:57 RMA [id number]) Nutrition Malnutrition Evidence of Malnutrition Exists No Clinical Problem Altered Nutrient-Related Laboratory Values Etiology related to renal dysfunction Signs/Symptoms as evidenced by Na 125, K 5.2, BUN 65, Cr 7.12 and need for dialysis treatment Status Resolved Problem Recommendation Dietitian Recommendations/Changes Will change diet to Cardiac/ low sodium with fluid restriction as needed. Encouraged pt to call RD as needed regarding diet/ nutrition. Lab / Micro Data Result Diagrams: 10/22/20 05:30 10/22/20 05:30 Labs: Laboratory Results - last 24 hr 10/22/20 05:30: WBC 7.8, RBC 4.94, Hgb 13.7, Hct 41.0, MCV 83.0, MCH 27.7, MCHC 33.4, RDW Std Deviation 48.1 H, RDW Coeff of Aleksandar 15.9 H, Plt Count 262, MPV 10.6, Immature Gran % (Auto) 2.800 H, Neut % (Auto) 60.0, Lymph % (Auto) 22.8, [place] % (Auto) 12.7 H, Eos % (Auto) 0.8, Baso % (Auto) 0.9, Absolute Neuts (auto) 4.7, Absolute Lymphs (auto) 1.78, Nucleated RBC % 0 10/22/20 05:30: Sodium 131 L, Potassium 3.7, Chloride 94 L, Carbon Dioxide 29.0, BUN 28 H, Creatinine 1.76 H, Estim Creat Clear Calc 29.72, Est GFR (MDRD) Af Amer 38 L, Est GFR (MDRD) Non-Af 31 L, BUN/Creatinine Ratio 15.9, Glucose 104, Calcium 9.0, Phosphorus 2.5, Albumin 2.5 L Micro: Microbiology 10/19/20 12:40 Mucosa - Nose SARS-CoV-2 Antigen (Rapid) - Final Physical Exam Narrative aao3 no obvious distress no pallor no icterus no JVD s1s2 no murmurs lungs clear abdomen soft no organomegaly no edema no cyanosis Assessment & Plan Assessment/Plan (1) Acute kidney injury: PLAN: Likely due to ATN. Creatinine is better. Massive urine output. Encourage fluids. Don't see any need for dialysis. Dialysis catheter can be removed. (2) Acute hyponatremia: PLAN: Noted with a sodium of 118. better today. (3) Hyperphosphatemia: PLAN: Can discontinue binders
--- NOTE | 2020-10-23 14:35 | CASEMGMT ---
MAMADOU DA SILVA Discharge F/U Phone Call LACE: 14 Strata: 4 Discharge date: 10/22/20 Call date: 10/23/20 Call time: [id number] Admission dx: LOVE, hyponatremia, frequent falls, back pain Pt states has been doing 'great' since home and is heading to stay with son today. Pt states no questions regarding discharge instructions/medications. Pt states has f/u scheduled with PCP on 11/07/20 and will make appt with Dr. Kimi presley. Pt states 'I appreciate the care they gave me.' Pt voices no further questions/concerns/needs. [place] MAMADOU DA SILVA
== END 2020-10-22 17:25 | disposition home or self-care (01) | DRG 683 ==
LOC: ED 14:57 → PCU 16:20
PROVIDERS: Hospitalist; Internal Medicine; Internal Medicine Nephrology; Physician Assistant; Surgery; Admitting Provider Internal Medicine; Emergency Provider Emergency Medicine; PCP Internal Medicine; Visit Provider Internal Medicine
PROC: 05HM33Z Insertion of Infusion Device into Right Internal Jugular Vein, Percutaneous Approach (ICD-10-PCS; principal; 2020-10-19 15:05)
DX: N17.0 Acute kidney failure with tubular necrosis (principal); E87.2 Acidosis; E87.1 Hypo-osmolality and hyponatremia; I25.10 Atherosclerotic heart disease of native coronary artery without angina pectoris; Z95.5 Presence of coronary angioplasty implant and graft; I16.0 Hypertensive urgency; E78.5 Hyperlipidemia, unspecified; J44.9 Chronic obstructive pulmonary disease, unspecified; F32.9 Major depressive disorder, single episode, unspecified; F41.9 Anxiety disorder, unspecified; I10 Essential (primary) hypertension; F17.210 Nicotine dependence, cigarettes, uncomplicated; E86.0 Dehydration; G89.29 Other chronic pain; R29.6 Repeated falls; M54.5 Low back pain; E83.39 Other disorders of phosphorus metabolism; E87.8 Other disorders of electrolyte and fluid balance, not elsewhere classified; E66.01 Morbid (severe) obesity due to excess calories; Z68.34 Body mass index [BMI] 34.0-34.9, adult; Z79.02 Long term (current) use of antithrombotics/antiplatelets; Z79.51 Long term (current) use of inhaled steroids; Z79.899 Other long term (current) drug therapy
CPT/HCPCS: 36415; 71045; 72070; 72100; 74176; 76000; 80048; 80053; 80069; 80076; 81001; 82550; 82962; 83735; 84100; 84443; 84484; 85025; 85610; 85730; 87340; 87426; 90937; 93005; 97110; 97116; 97162; 97167; 97530; 97535; 99251; 99285; 99406; J7030; J7040; A4216; C1750; G0257; G0463; J2405

== ENCOUNTER → 2020-11-07 09:06 | Outpatient (CLI) | payer MEDICARE, SELFPAY ==
[2020-11-07 08:25] VITALS: BMI 34.2
[2020-11-07 12:15] LABS: Absolute Lymphocyte Count 1.63 X10^3/uL (0.83-4.51); Absolute Neutrophil Count 4.4 X10^3/uL (2.0-7.7); Basophil# 0.05 X10^3/uL; Basophil% 0.8 % (0-1); Eosinophil# 0.07 X10^3/uL; Eosinophils% 1.1 % (0-5); Hematocrit 44.4 % (37-47); Lymphocyte # 1.63 X10^3/ul (0.83-4.51); Lymphocyte % 24.5 % (19-41); Mean Corp Hgb Conc 31.5 g/dL (32-36); Mean Corpuscular Hgb 28.5 pg (27.0-32.0); Mean Corpuscular Volume 90.4 fL (81-99); Mean Platelet Vol. 10.5 fl (6.2-12.0); Monocyte# 0.51 X10^3/uL; Monocyte% 7.7 % (0-10); NRBC Flagged by Analyzer 0 % (0-5); Neutrophil # 4.35 X10^3/uL (2.7-7.7); Neutrophil % 65.1 % (47-70); Platelet Count 347 K/mm3 (150-450); RBC Distribution Width CV 17.2 % (11.6-14.6); RBC Distribution Width SD 57.5 fl (35.1-43.9); Red Blood Count 4.91 M/mm3 (4.2-5.4); White Blood Count 6.7 K/mm3 (4.4-11.0)
[2020-11-07 12:33] LABS: ALB/GLOB Ratio 0.8 RATIO (0.9-2.4); AST(SGOT) 12 U/L (15-37); Alanine Aminotransfer ALT/SGPT 28 U/L (13-56); Albumin, Serum 3.3 g/dL (3.2-5.0); Alkaline Phosphatase 99 U/L (45-117); Anion Gap 7 (5-15); BUN 21 mg/dL (7-18); BUN/Creat Ratio 21.5 RATIO (10-20); Calcium,Total 8.8 mg/dL (8.5-10.1); Chloride 100 mmol/L (98-107); Creatinine, Serum 0.98 mg/dL (0.55-1.02); EST Glomerular Filtration Rate 62 mL/min (>60); Est Glom Filt Rate - Afr Amer 75 mL/min (>60); Globulin 4.2 g/dL (2.2-4.2); Glucose 205 mg/dL (74-106); Potassium 3.8 mmol/L (3.5-5.1); Protein, Total 7.5 g/dL (6.4-8.2); Sodium Level 136 mmol/L (136-145)
== END ==
PROVIDERS: PCP Internal Medicine; Referring Provider Internal Medicine; Visit Provider Internal Medicine
DX: N17.9 Acute kidney failure, unspecified (principal); R73.03 Prediabetes
CPT/HCPCS: 36415; 80053; 83036; 85025

== ENCOUNTER → 2020-11-26 06:24 | Outpatient (CLI) | payer MEDICARE, SELFPAY ==
[2020-11-07 08:25] VITALS: BMI 34.2
--- NOTE | 2020-11-26 11:09 | STRESSREP ---
Stress Test Report Pharmacologic myocardial perfusion stress test. 60-year-old lady with a history of non-ST elevation myocardial infarction. Stress protocol: Resting EKG demonstrates normal sinus rhythm with a rate of 66 bpm and a right bundle branch block. Resting blood pressure is 128/80 mmHg. 0.4 mg of regadenoson was infused per protocol protocol. Continuous EKG monitoring was performed. The maximum heart rate attained was 99 bpm which was 61% of maximum predicted heart rate the maximum workload was 1 metabolic equivalent. At rest there were no ST or T wave changes noted to suggest abnormal flow reserve and a peak infusion nonspecific ST changes were noted with did not meet the criteria for ischemia. No clinical angina was noted. Myocardial perfusion protocol. 11.4 mCi of technetium 99m sestamibi was injected at rest. 0.4 mg of regadenoson was infused per usual protocol. At peak infusion 33.3 mCi of technetium 99m sestamibi was injected stress images were obtained stress and rest images were reconstructed and compared in the short axis vertical long and horizontal long axis. Gated images were also obtained per Perfusion SPECT analysis: Review of the stress images demonstrate normal uptake of tracer noted in all areas of the myocardium. The resting images similarly demonstrate normal uptake of tracer noted in all areas of the myocardium. No areas of reversibility are noted to suggest ischemia no previous infarct is noted. Gated SPECT analysis: The gated ejection fraction is noted to be over 80%. Conclusion: Normal pharmacologic myocardial perfusion stress test. Preserved ejection fraction.
== END ==
LOC: CVS 06:24
PROVIDERS: PCP Internal Medicine; Referring Provider Nurse Practitioner Family; Visit Provider Nurse Practitioner Family
DX: I21.4 Non-ST elevation (NSTEMI) myocardial infarction (principal); I25.10 Atherosclerotic heart disease of native coronary artery without angina pectoris; I48.0 Paroxysmal atrial fibrillation; E78.2 Mixed hyperlipidemia; I10 Essential (primary) hypertension; Z95.5 Presence of coronary angioplasty implant and graft
CPT/HCPCS: 78452; 93017; A9500; A4216; J2785

== ENCOUNTER → 2020-12-10 12:46 | Outpatient (CLI) | payer MEDICARE, SELFPAY ==
[2020-12-10 14:30] LABS: Amphetamine Urine VISTA NEGATIVE (<1000 ng/mL); Barbiturate Urine VISTA NEGATIVE (< 200 ng/mL); Benzodiazepine Urine VISTA NEGATIVE (< 200 ng/mL); Cocaine Urine VISTA NEGATIVE (< 300 ng/mL); Ecstacy Urine VISTA POSITIVE (< 500 ng/mL); Methadone Urine VISTA NEGATIVE (< 300 ng/mL); PCP Urine VISTA NEGATIVE (< 25 ng/mL); THC Urine VISTA POSITIVE (< 50 ng/mL); Vista UDS pH Range 5
== END ==
LOC: LAB 12:47
PROVIDERS: PCP Internal Medicine; Referring Provider Anesthesiology Pain Medicine; Visit Provider Anesthesiology Pain Medicine
DX: F11.20 Opioid dependence, uncomplicated (principal)
CPT/HCPCS: 80307

== ENCOUNTER 2021-03-30 12:17 | Emergency (ER) | payer MEDICARE, SELFPAY ==
[2021-03-30 12:19] VITALS: BP 88/47; PULSE 83; RESP 16; TEMP 35.9; O2SAT 93; BMI 33.3
--- NOTE | 2021-03-30 12:33 | RAD_ITS ---
STUDY: X-RAY - LEFT FOOT CLINICAL: Female, 60 years old. trauma TECHNIQUE: 3 view(s) of the foot. COMPARISON: 03/11/2018 FINDINGS: Normal talus, calcaneus, and tarsal bones. Normal visualized subtalar, talonavicular, calcaneocuboid, tarsal and tarsometatarsal articulations. Normal metatarsi. Normal metatarsophalangeal joint of the great toe. Normal tibial and fibular sesamoid bones. Normal interphalangeal joint of the great toe. Normal phalanges of the great toe. Normal second through fifth metatarsophalangeal joints. Normal interphalangeal joints and phalanges of the lesser toes. The soft tissue structures are unremarkable. RAD/Foot min 3 Views IMPRESSION: Normal x-ray examination of the foot. Electronically Signed: Andrae Rivera MD at 13:08 EST Tel , Service support ,
--- NOTE | 2021-03-30 12:33 | RAD_ITS ---
STUDY: X-RAY - LEFT ANKLE REASON FOR EXAM: Female, 60 years old. trauma TECHNIQUE: 3 view(s) of the ankle. COMPARISON: 08/28/2020 FINDINGS: Healed fracture the distal fibula after open reduction internal fixation with a lateral plate and screws. Healed fracture the medial malleolus the tibia with a single screw. Healed fracture of the anterior tibia with 2 screws. Normal tibiotalar articulation and ankle mortise. Normal visualized talus and calcaneus. The visualized subtalar, talonavicular, calcaneocuboid and tarsal articulations are normal. The soft tissue structures are unremarkable. RAD/Ankle min 3 Views IMPRESSION: No acute fracture or dislocation. Electronically Signed: Andrae Rivera MD at 13:05 EST Tel , Service support ,
--- NOTE | 2021-03-30 12:34 | ED.VIS.LOWEX ---
HPI History of Present Illness Chief Complaint: Lower Extremity Injury Informant: patient Narrative Narrative: Patient presents with left foot pain. She states she has problems with frequent falls. She states her blood pressure is either 60 systolic or 180 systolic. She adjust her meds based on how she feels that day and her blood pressure readings. This has been going on a long time. She states that last evening she got up to get something to eat. She felt a little lightheaded. So she turned to get back in her chair and when she turned she fell down. She did not pass out. But she landed on her left foot. She has concerns because she had open reduction internal fixation of the left tib-fib several years ago. However, she states the pain is really in her foot. She is also on Plavix so she has some moderate bruising now. She also takes 4 hydrocodone a day and is on chronic pain meds. I will give her a Percocet here. She did not hit her head. No other areas hurt. She is not complaining of trouble breathing. The blood pressure is an issue she is dealt with for a long time and does not concern her. She is used to managing this. [facility] Medical History Acute exacerbation of chronic low back pain Acute kidney injury LOVE (acute kidney injury) Atherosclerosis of [place] coronary artery of [place] heart without angina pectoris Essential (primary) hypertension Flu vaccine need Fracture tibia/fibula Frequent falls Generalized anxiety disorder with panic attacks Hyperlipidemia Low back pain Lump of breast, left Myocardial infarct Nicotine dependence NSTEMI (non-ST elevated myocardial infarction) (10/2016) Obesity (BMI 30-39.9) Osteoarthritis Paroxysmal atrial fibrillation Pneumonia Smoker Syncope and collapse UTI (urinary tract infection) Vascular catheter fitting or adjustment Vision problems Home Medications aspirin 81 mg PO DAILY@0800 10/29/17 [History Last Taken 10/17/20] clopidogrel 75 mg tablet 75 mg PO DAILY #90 tab 08/17/20 [Rx Last Taken 10/17/20] hydrocodone-acetaminophen 1 tab PO TID 08/29/20 [History Last Taken 10/17/20] tizanidine 4 mg PO TID PRN #0 tab 09/01/20 [Rx Last Taken 10/17/20] escitalopram oxalate [Lexapro] 20 mg PO DAILY 10/17/20 [History Last Taken 10/17/20] buspirone 10 mg tablet 20 mg PO TID #540 tab 10/24/20 [Rx Last Taken Unknown] gabapentin 800 mg tablet 800 mg PO .qid tab 11/06/20 [History Last Taken Unknown] Handicap Placard #1 ea 11/07/20 [Rx Last Taken Unknown] trazodone 100 mg tablet 200 mg PO QHS #60 tab 01/28/21 [Rx Last Taken Unknown] albuterol sulfate 90 mcg/actuation aerosol inhaler 2 puff INHALATION Q6H PRN #18 gm 02/04/21 [Rx Last Taken Unknown] hydrochlorothiazide 12.5 mg tablet 12.5 mg PO DAILY #90 tab 03/04/21 [Rx Last Taken Unknown] lisinopril 20 mg tablet 20 mg PO BID #180 tab 03/28/21 [Rx Last Taken Unknown] metoprolol tartrate 50 mg tablet 50 mg PO BID #180 tab 03/28/21 [Rx Last Taken Unknown] rosuvastatin 40 mg tablet 40 mg PO DAILY #90 tab 03/28/21 [Rx Last Taken Unknown] Allergy/AdvReac Type Severity Reaction Status Date / Time adhesive AdvReac Other Verified 03/30/21 12:22 baclofen AdvReac LETHARGY Verified 03/30/21 12:22 Family History Father Hypertension Bowel disease Heart disease Kidney disease Mother Hypertension Arthritis Bowel disease Colon cancer Heart disease High cholesterol Grandmother Arthritis Breast cancer Brain tumor Lung cancer Grandfather Myocardial infarction Surgical History H/O laminectomy History of colonoscopy History of coronary artery stent placement (11/17/16) History of left heart catheterization History of splenectomy History of total right hip replacement Hx of bone graft (2014) S/P ORIF (open reduction internal fixation) fracture Social History adopted: No number of children: 1 current occupational status: unemployed Smoking Status: Current every day smoker tobacco type: cigarettes Tobacco: How many years used: 35 alcohol intake: current alcohol intake frequency: holidays/special occasions only Alcohol type: hard liquor substance use type: former substance user Date of last use: 20 years ago and marijuana caffeine: Yes Type: carbonated beverages and coffee what type of physical activity do you participate in: other details: Physical Therapy frequency: 3-4 times per week seatbelt use: always do you feel safe at home: Yes ROS ROS ED Constitutional Constitutional ED: Denies chills or fever(s) Eyes Eyes: Denies blurry vision Cardiovascular Cardiovascular: Denies chest pain or palpitations Respiratory/Chest Respiratory/Chest: Reports other Details: Chronic smoker's cough but no difference. ; Denies dyspnea Gastrointestinal Gastrointestinal: Denies nausea or vomiting Musculoskeletal Musculoskeletal: Reports other Details: See history of present illness. ; Denies back pain or neck pain Integumentary Denies Abrasions or rash Neurologic Neurologic: Denies headache(s), paresthesias or weakness Hematologic/Lymphatic Hematologic/Lymphatic: Reports easy bruising Allergic/Immunologic Allergic/Immunologic ED: Denies mouth swelling or urticaria EXAM Physical Exam Const Vital Signs: 03/30/21 12:19 Temperature 96.7 F L Temperature Source Temporal Pulse Rate 83 Respiratory Rate 16 Blood Pressure 88/47 L Blood Pressure Mean 60 Pulse Ox 93 Oxygen Delivery Method Room Air Positive well nourished and obese General Appearance ED: NAD Nutritional Appearance: obese HEENT normocephalic and atraumatic Neck full ROM Resp normal respiratory effort Auscultation: wheezes; Negative for rales or rhonchi Cardio regular rate GI non-tender Palpation: soft Back/Spine Cervical Spine: Negative for cervical spine tenderness Thoracic Spine / Upper Back: Negative for thoracic spinal tenderness Lumbar Spine / Lower Back: Negative for lumbar spinal tenderness Extremity Extremity Narrative: Patient has some ecchymosis to the left foot. This is mostly on the dorsal lateral side. I do not see any deformity. The ankle has a healed scar and does not seem to be tender or swollen. However she is very concerned about the ankle so we will los-ray this. General Extremety ED: Negative for cyanosis General Extremity: Negative for cyanosis Neuro oriented x3 Sensorium / Orientation: alert Psych mental status grossly normal Skin no wounds Lesions: no lesions Rashes: no rashes Trauma: Negative for abrasion or laceration MDM MDM MDM Narrative Medical decision making narrative: Three-view x-ray of ankle and three-view x-ray of the foot looked at by me and read by radiology shows no sign of acute fracture or dislocation. Patient does have contusions clinically. She should ice elevate the foot. She has a chronic prescription of hydrocodone for pain. I cannot prescribe further. I did give her a Percocet here. Radiography Diagnostic Testing: Clinical Impression(s) from Imaging Studies Ankle X-Ray 03/30/21 12:33 IMPRESSION: No acute fracture or dislocation. Electronically Signed: Andrae Rivera MD at 13:05 EST Tel , Service support , Foot X-Ray 03/30/21 12:33 IMPRESSION: Normal x-ray examination of the foot. Electronically Signed: Andrae Rivera MD at 13:08 EST Tel , Service support , Discharge Plan Triage Chief Complaint: Lower Extremity Injury ED Provider: Deshaun Johnson Dx/Rx/DC Orders Clinical Impression: Contusion of foot, left, Fall at home Instructions: ED Foot Contusion Prescriptions: No Action (DME) Handicap Neida See Rx Instructions .ROUTE .MEDSUPPLY Qty: 1 RF: 0 gabapentin 800 mg tablet 800 mg PO .qid RF: 0 aspirin 81 MG tablet 81 mg PO DAILY@0800 RF: 0 hydrocodone-acetaminophen 7.5-325 mg tablet 1 tab PO TID RF: 0 tizanidine 4 MG tablet 4 mg PO TID PRN (Reason: muscle spasm/pain) Qty: 0 RF: 0 escitalopram oxalate [Lexapro] 20 mg tablet 20 mg PO DAILY RF: 0 clopidogrel 75 mg tablet 75 mg PO DAILY Qty: 90 RF: 3 buspirone 10 mg tablet 20 mg PO TID Qty: 540 RF: 1 trazodone 100 mg tablet 200 mg PO QHS Qty: 60 RF: 2 albuterol sulfate 90 mcg/actuation HFA aerosol inhaler 2 puff INHALATION Q6H PRN (Reason: shortness of breath or wheezing) Qty: 18 RF: 2 hydrochlorothiazide 12.5 mg tablet 12.5 mg PO DAILY Qty: 90 RF: 2 rosuvastatin 40 mg tablet 40 mg PO DAILY Qty: 90 RF: 3 lisinopril 20 mg tablet 20 mg PO BID Qty: 180 RF: 1 Hold Instructions: Resume on 11/28/20. Hold until told to resume by Language Arts Teacher. metoprolol tartrate 50 mg tablet 50 mg PO BID Qty: 180 RF: 0 Primary Care Provider: Ana Oates Referrals: Ana Oates MD [Primary Care Provider] - 3-5 Days if not improving Disposition Disposition: Home, Self Care
[2021-03-30] MEDS: oxyCODONE 5 MG Tablet PO (12:40)
[2021-03-30 13:40] VITALS: BP 145/131
== END 2021-03-30 13:41 | disposition home or self-care (01) ==
LOC: ED 13:01
PROVIDERS: Emergency Provider Emergency Medicine; PCP Internal Medicine
DX: S90.32XA Contusion of left foot, initial encounter (principal); I25.2 Old myocardial infarction; I25.10 Atherosclerotic heart disease of native coronary artery without angina pectoris; F17.210 Nicotine dependence, cigarettes, uncomplicated; E66.9 Obesity, unspecified; I10 Essential (primary) hypertension; I48.0 Paroxysmal atrial fibrillation; F41.1 Generalized anxiety disorder; E78.5 Hyperlipidemia, unspecified; Z79.82 Long term (current) use of aspirin; Z79.899 Other long term (current) drug therapy; Z79.02 Long term (current) use of antithrombotics/antiplatelets; W19.XXXA Unspecified fall, initial encounter; Z91.81 History of falling
CPT/HCPCS: 73610; 73630; 99283

== ENCOUNTER 2021-04-11 11:03 | Outpatient (CLI) | payer MEDICARE, SELFPAY ==
[2021-04-11 12:11] LABS: Absolute Lymphocyte Count 1.94 X10^3/uL (0.83-4.51); Absolute Neutrophil Count 6.4 X10^3/uL (2.0-7.7); Basophil# 0.04 X10^3/uL; Basophil% 0.4 % (0-1); Eosinophil# 0.06 X10^3/uL; Eosinophils% 0.7 % (0-5); Hematocrit 47.6 % (37-47); Hemoglobin 15.4 g/dL (12.0-15.0); Lymphocyte # 1.94 X10^3/ul (0.83-4.51); Lymphocyte % 21.1 % (19-41); Mean Corp Hgb Conc 32.4 g/dL (32-36); Mean Corpuscular Hgb 28.6 pg (27.0-32.0); Mean Corpuscular Volume 88.3 fL (81-99); Mean Platelet Vol. 9.8 fl (6.2-12.0); Monocyte# 0.66 X10^3/uL; Monocyte% 7.2 % (0-10); NRBC Flagged by Analyzer 0 % (0-5); Neutrophil # 6.44 X10^3/uL (2.7-7.7); Neutrophil % 69.9 % (47-70); Platelet Count 317 K/mm3 (150-450); RBC Distribution Width CV 17.2 % (11.6-14.6); RBC Distribution Width SD 54.8 fl (35.1-43.9); Red Blood Count 5.39 M/mm3 (4.2-5.4); White Blood Count 9.2 K/mm3 (4.4-11.0)
[2021-04-11 12:34] LABS: Hemoglobin A1c 6.2 % (3.8-5.6)
[2021-04-11 12:38] LABS: ALB/GLOB Ratio 0.7 RATIO (0.9-2.4); AST(SGOT) 12 U/L (15-37); Alanine Aminotransfer ALT/SGPT 22 U/L (13-56); Alkaline Phosphatase 111 U/L (45-117); Anion Gap 5 (5-15); BUN 18 mg/dL (7-18); Calcium,Total 9.1 mg/dL (8.5-10.1); Chloride 103 mmol/L (98-107); Cholesterol 135 mg/dL (200); Creatinine, Serum 0.75 mg/dL (0.55-1.02); EST Glomerular Filtration Rate 84 mL/min (>60); Est Glom Filt Rate - Afr Amer 101 mL/min (>60); Globulin 4.3 g/dL (2.2-4.2); Glucose 110 mg/dL (74-106); High Density Lipoprotein 56 mg/dL; Potassium 4.6 mmol/L (3.5-5.1); Protein, Total 7.3 g/dL (6.4-8.2); Sodium Level 140 mmol/L (136-145); Triglycerides 84 mg/dL; Very Low Density Lipoprotein 17 mg/dL (5-40)
== END 2021-04-11 23:59 | disposition short-term general hospital (02) ==
LOC: BIMLAB 11:04
PROVIDERS: PCP Internal Medicine; Referring Provider Internal Medicine; Visit Provider Internal Medicine
DX: I10 Essential (primary) hypertension (principal); R73.03 Prediabetes; E78.2 Mixed hyperlipidemia
CPT/HCPCS: 36415; 80053; 80061; 83036; 85025

== ENCOUNTER 2021-05-02 13:42 | Inpatient (IN) | payer MEDICARE, SELFPAY ==
[2021-05-02] VITALS (19 sets, daily range): BP systolic 71–180; BP diastolic 48–112; PULSE 86–105; RESP 14–29; TEMP 35.7–37.2; O2SAT 87–100; BMI 33.2; BMI 34.2
--- NOTE | 2021-05-02 13:52 | EKG12_ITS ---
Test Reason : OD Blood Pressure : / mmHG Vent. Rate : 093 BPM Atrial Rate : 094 BPM P-R Int : 142 ms QRS Dur : 132 ms QT Int : 414 ms P-R-T Axes : 081 -09 031 degrees QTc Int : 514 ms Normal sinus rhythm Right bundle branch block Abnormal ECG Confirmed by LANA MICHAEL, NABOR ([id number]), editor house organ DEREK RAY ([id number]) on 05/06/2021 12:54:46 PM Referred By: HARRIET Confirmed By:NABOR SCHWARTZ MD
[2021-05-02] MEDS: Naloxone 2 MG/2 ML Syringe IV (13:53)
--- NOTE | 2021-05-02 13:53 | ED.RN ---
Pt arrives via EMS. Family called EMS to do a warfare check on pt. EMS states she was slow to respond with pin point pupils and there were pills covering her lap. EMS gave 1 mg narcan on scene. 1350: Dr at bedside. 71 Blood glucose. 1353: 2mg narcan IVP given. 1357: RT at bedside
[2021-05-02 13:56] LABS: Bedside Glucose 71 mg/dL (70-110)
--- NOTE | 2021-05-02 13:56 | EX.ED.DYSGE1 ---
HPI History of Present Illness Chief Complaint: Alt LOC Informant: family and EMS Limited: stupor Onset/Context/Timing Onset: Today Timing: Continuous Worsened by: Nothing Relieved by: Nothing Narrative Narrative: Patient presents with altered mental status that was noticed today. Son states that he called her on the phone and she was not making sense to him. Neighbor was also concerned that she was not making any sense. EMS administered 1 mg of Narcan. EMS reports that there is slightly improved her mental status. Patient does not answer questions. Police went back out to her residence and noticed that there were only 11 hydrocodone tablets. Patient had a prescription of 84 tablets filled on 04/29/2021. [facility] Medical History Acute exacerbation of chronic low back pain Acute kidney injury LOVE (acute kidney injury) Atherosclerosis of [place] coronary artery of [place] heart without angina pectoris Essential (primary) hypertension Flu vaccine need Fracture tibia/fibula Frequent falls Generalized anxiety disorder with panic attacks Hyperlipidemia Low back pain Lump of breast, left Myocardial infarct Nicotine dependence NSTEMI (non-ST elevated myocardial infarction) (10/2016) Obesity (BMI 30-39.9) Osteoarthritis Paroxysmal atrial fibrillation Pneumonia Smoker Syncope and collapse UTI (urinary tract infection) Vascular catheter fitting or adjustment Vision problems Home Medications aspirin 81 mg PO DAILY@0800 10/29/17 [History Last Taken 10/17/20] clopidogrel 75 mg tablet 75 mg PO DAILY #90 tab 08/17/20 [Rx Last Taken 10/17/20] hydrocodone-acetaminophen 1 tab PO TID 08/29/20 [History Last Taken 10/17/20] tizanidine 4 mg PO TID PRN #0 tab 09/01/20 [Rx Last Taken 10/17/20] escitalopram oxalate [Lexapro] 20 mg PO DAILY 10/17/20 [History Last Taken 10/17/20] gabapentin 800 mg tablet 800 mg PO .qid tab 11/06/20 [History Last Taken Unknown] Handicap Placard #1 ea 11/07/20 [Rx Last Taken Unknown] hydrochlorothiazide 12.5 mg tablet 12.5 mg PO DAILY #90 tab 03/04/21 [Rx Last Taken Unknown] lisinopril 20 mg tablet 20 mg PO BID #180 tab 03/28/21 [Rx Last Taken Unknown] metoprolol tartrate 50 mg tablet 50 mg PO BID #180 tab 03/28/21 [Rx Last Taken Unknown] rosuvastatin 40 mg tablet 40 mg PO DAILY #90 tab 03/28/21 [Rx Last Taken Unknown] leg brace #1 ea 04/11/21 [Rx Last Taken Unknown] metoprolol tartrate 25 mg tablet 25 mg PO BID tab 04/17/21 [History Last Taken Unknown] albuterol sulfate 90 mcg/actuation aerosol inhaler 2 puff INHALATION Q6H PRN #18 gm 04/30/21 [Rx Last Taken Unknown] buspirone 10 mg tablet 20 mg PO TID #540 tab 04/30/21 [Rx Last Taken Unknown] trazodone 100 mg tablet 200 mg PO QHS #60 tab 04/30/21 [Rx Last Taken Unknown] Allergy/AdvReac Type Severity Reaction Status Date / Time adhesive AdvReac Other Verified 04/17/21 14:43 baclofen AdvReac LETHARGY Verified 04/17/21 14:43 Family History Father Hypertension Bowel disease Heart disease Kidney disease Mother Hypertension Arthritis Bowel disease Colon cancer Heart disease High cholesterol Grandmother Arthritis Breast cancer Brain tumor Lung cancer Grandfather Myocardial infarction Surgical History H/O laminectomy History of colonoscopy History of coronary artery stent placement (11/17/16) History of left heart catheterization History of splenectomy History of total right hip replacement Hx of bone graft (2014) S/P ORIF (open reduction internal fixation) fracture Social History adopted: No number of children: 1 current occupational status: unemployed Smoking Status: Current every day smoker tobacco type: cigarettes Tobacco: How many years used: 35 alcohol intake: current alcohol intake frequency: holidays/special occasions only Alcohol type: hard liquor substance use type: former substance user Date of last use: 20 years ago and marijuana caffeine: Yes Type: carbonated beverages and coffee what type of physical activity do you participate in: other details: Physical Therapy frequency: 3-4 times per week seatbelt use: always do you feel safe at home: Yes ROS ROS ED Review of Systems ROS Unobtainable: due to mental status EXAM Physical Exam Const Vital Signs: 05/02/21 13:43 05/02/21 14:00 05/02/21 14:06 Temperature 96.5 F L Temperature Source Temporal Pulse Rate 88 91 Respiratory Rate 21 H 18 Blood Pressure Blood Pressure Mean Pulse Ox 92 87 Oxygen Delivery Method Room Air Non-Rebreather Non-Rebreather Oxygen Flow Rate (L/min) 15 15 Fraction of Inspired Oxygen (FIO2) 05/02/21 14:25 05/02/21 14:30 05/02/21 14:56 Temperature 96.7 F L Temperature Source Temporal Pulse Rate 92 92 86 Respiratory Rate 24 H 27 H 19 H Blood Pressure 131/111 H 82/67 L Blood Pressure Mean 117 72 Pulse Ox 89 Oxygen Delivery Method Bi-pap Bi-pap Oxygen Flow Rate (L/min) Fraction of Inspired Oxygen (FIO2) 40 05/02/21 15:00 05/02/21 15:01 Temperature 96.4 F L Temperature Source Temporal Pulse Rate 88 90 Respiratory Rate 25 H 29 H Blood Pressure 89/71 L Blood Pressure Mean 77 Pulse Ox Oxygen Delivery Method Bi-pap Oxygen Flow Rate (L/min) Fraction of Inspired Oxygen (FIO2) 40 Positive well nourished, well developed and obese General Appearance ED: well developed Nutritional Appearance: obese HEENT Reports moist mucous membranes Neck supple and no JVD Resp normal respiratory effort and clear to auscultation bilaterally Cardio regular rate, regular rhythm and no murmurs GI normal to inspection, nondistended, normoactive bowel sounds and non-tender Palpation: soft Extremity General Extremety ED: Negative for edema or tenderness General Extremity: Negative for edema Neuro CN's II-XII intact bilaterally Sensorium / Orientation: alert Skin no rashes or lesions noted MDM MDM MDM Narrative Medical decision making narrative: Patient was given 2 mg of Narcan IV. Patient was given a bolus of D 25 because her glucose was only 71. Patient became a little more awake and alert. Patient was advised that she may need to be placed on a ventilator. Patient stated that she does not want to be placed on a ventilator. Arterial blood gas showed a pH of 7.219, PCO2 of 48.5, PO2 of 201.1, bicarb 19.8, and O2 sat of 99.5% on a nonrebreather mask. EKG was obtained. On my interpretation, there appears to be a normal sinus rhythm with a rate of 93. There is a right bundle branch block pattern. There is some baseline artifact noted. [place] was normal. CBC shows a leukocytosis of 13.6. Comprehensive metabolic profile shows a sodium of 119, chloride of 81, anion gap of 16, BUN of 121, and creatinine of 9.22. Serum alcohol level was less than 3. Acetaminophen and salicylate levels were within normal limits. Urinalysis does not show any evidence of urinary tract infection. Urine tox screen was positive for cannabinoids and opiates. Lactate was elevated 2.4. Portable chest x-ray was obtained. There is 1 view. On my interpretation, there is no acute cardiopulmonary process noted. Bony thorax is normal. There is no cardiomegaly. Radiologist also interpreted the x-ray and agrees. Case was discussed with the hospitalist, Dr Valenzuela. She recommended starting a central line due to the patient's low blood pressure. Case was discussed with the merchant patroller, Dr. Bullock. He is agreeable with plan of care. The procedure was discussed with the patient. She is agreeable to have the central line placed in the right internal jugular vein. Right internal jugular vein central line was attempted under ultrasound guidance. This was unsuccessful. Because of the attempts at the right internal jugular vein were unsuccessful, a repeat portable chest x-ray was obtained. There is 1 view. On my interpretation, there is no evidence of pneumothorax. Radiologist also interpreted the x-ray and agrees. Patient's blood pressure improved while attempting the central line placement. Because of this, patient will be admitted to ICU without a central line. Patient understood and was agreeable with the plan. All questions were answered. Lab Data Attestation: I reviewed the patient's lab results. Labs: Laboratory Results - last 24 hr 05/02/21 05/02/21 05/02/21 13:45 13:45 13:45 WBC 13.6 H RBC 5.17 Hgb 15.0 Hct 42.3 MCV 81.8 MCH 29.0 MCHC 35.5 RDW Std Deviation 50.4 H RDW Coeff of Aleksandar 16.9 H Plt Count 193 MPV 12.5 H Immature Gran % (Auto) 1.000 H Neut % (Auto) 86.8 H Lymph % (Auto) 6.8 L [place] % (Auto) 5.2 Eos % (Auto) 0.1 Baso % (Auto) 0.1 Absolute Neuts (auto) 11.8 H Absolute Lymphs (auto) 0.92 Nucleated RBC % 0 Sodium 119 L* Potassium 4.5 Chloride 81 L Carbon Dioxide 22.0 Anion Gap 16 H BUN 121 H* Creatinine 9.22 H* Estim Creat Clear Calc 5.84 Est GFR (MDRD) Af Amer 6 L Est GFR (MDRD) Non-Af 5 L BUN/Creatinine Ratio 13.1 Glucose 107 H Lactic Acid Calcium 8.0 L Total Bilirubin 0.50 AST 152 H ALT 57 H Alkaline Phosphatase 120 H Troponin I High Sens 38 Total Protein 7.1 Albumin 2.7 L Globulin 4.4 H Albumin/Globulin Ratio 0.6 L Urine Color Urine Clarity Urine pH Ur Specific [place] Urine Protein Urine Glucose (UA) Urine Ketones Urine Occult Blood Urine Nitrite Urine Bilirubin Urine Urobilinogen Ur Leukocyte Esterase Urine RBC Urine WBC Ur Squamous Epith Cells Urine Bacteria Urine Mucus Salicylates Urine Opiates Screen Urine Methadone Screen Acetaminophen Ur Barbiturates Screen Ur Phencyclidine Scrn Ur Amphetamines Screen U Methamphetamin-MDMA U Benzodiazepines Scrn Urine Cocaine Screen U Cannabinoids Screen Ur Drug Screen Comment Ethyl Alcohol < 3.0 POC Glucose 05/02/21 05/02/21 05/02/21 13:45 13:52 14:20 WBC RBC Hgb Hct MCV MCH MCHC RDW Std Deviation RDW Coeff of Aleksandar Plt Count MPV Immature Gran % (Auto) Neut % (Auto) Lymph % (Auto) [place] % (Auto) Eos % (Auto) Baso % (Auto) Absolute Neuts (auto) Absolute Lymphs (auto) Nucleated RBC % Sodium Potassium Chloride Carbon Dioxide Anion Gap BUN Creatinine Estim Creat Clear Calc Est GFR (MDRD) Af Amer Est GFR (MDRD) Non-Af BUN/Creatinine Ratio Glucose Lactic Acid Calcium Total Bilirubin AST ALT Alkaline Phosphatase Troponin I High Sens Total Protein Albumin Globulin Albumin/Globulin Ratio Urine Color [place] Urine Clarity Sl. Cloudy Urine pH 5.0 Ur Specific [place] 1.025 Urine Protein 30 H Urine Glucose (UA) Normal Urine Ketones 5 H Urine Occult Blood 150 H Urine Nitrite Negative Urine Bilirubin 1 H Urine Urobilinogen Normal Ur Leukocyte Esterase 25 H Urine RBC 10-25 SEEN Urine WBC 0-5 SEEN Ur Squamous Epith Cells 0-5 SEEN Urine Bacteria 1+ Urine Mucus 0 SEEN Salicylates 6.6 Urine Opiates Screen Urine Methadone Screen Acetaminophen 7.9 L Ur Barbiturates Screen Ur Phencyclidine Scrn Ur Amphetamines Screen U Methamphetamin-MDMA U Benzodiazepines Scrn Urine Cocaine Screen U Cannabinoids Screen Ur Drug Screen Comment Ethyl Alcohol POC Glucose 71 05/02/21 05/02/21 14:20 14:30 WBC RBC Hgb Hct MCV MCH MCHC RDW Std Deviation RDW Coeff of Aleksandar Plt Count MPV Immature Gran % (Auto) Neut % (Auto) Lymph % (Auto) [place] % (Auto) Eos % (Auto) Baso % (Auto) Absolute Neuts (auto) Absolute Lymphs (auto) Nucleated RBC % Sodium Potassium Chloride Carbon Dioxide Anion Gap BUN Creatinine Estim Creat Clear Calc Est GFR (MDRD) Af Amer Est GFR (MDRD) Non-Af BUN/Creatinine Ratio Glucose Lactic Acid 2.4 H* Calcium Total Bilirubin AST ALT Alkaline Phosphatase Troponin I High Sens Total Protein Albumin Globulin Albumin/Globulin Ratio Urine Color Urine Clarity Urine pH Ur Specific [place] Urine Protein Urine Glucose (UA) Urine Ketones Urine Occult Blood Urine Nitrite Urine Bilirubin Urine Urobilinogen Ur Leukocyte Esterase Urine RBC Urine WBC Ur Squamous Epith Cells Urine Bacteria Urine Mucus Salicylates Urine Opiates Screen POSITIVE H Urine Methadone Screen NEGATIVE Acetaminophen Ur Barbiturates Screen NEGATIVE Ur Phencyclidine Scrn NEGATIVE Ur Amphetamines Screen NEGATIVE U Methamphetamin-MDMA NEGATIVE U Benzodiazepines Scrn NEGATIVE Urine Cocaine Screen NEGATIVE U Cannabinoids Screen POSITIVE H Ur Drug Screen Comment Ethyl Alcohol POC Glucose ABG Data ABG results: ABG 05/02/21 14:12 Specimen Type ART Sample Site L Brach pH 7.22 L Bicarbonate Actual 19.8 L Total CO2 21 Base Excess -8 L O2 Saturation 100 H O2 % 100 ABG pCO2 48.5 H ABG pO2 201 H Simon Test Positive O2 Delivery Device NRB Radiography Chest X-Ray - ED: 1 View, Read by ED Physician, Read by Radiologist and Normal Diagnostic Testing: Clinical Impression(s) from Imaging Studies Chest X-Ray 05/02/21 14:35 IMPRESSION: Hyperinflation. The lungs are clear. Electronically Signed: Bon Valentin MD at 14:48 EST , Critical Care Time Critical Care Time: Yes Critical care time (excluding procedures): 30-74 minutes (37), Including time spent:, Discussing w/Patient &/or Family/Administrative Dietitian, Discussing w/Consultants, Arranging Admission or Transfer and Performing Direct Patient Care at Bedside Discharge Plan Dx/Rx/DC Orders Clinical Impression: Acute kidney injury, Hypotension, Acute hyponatremia, Hypoxia, Metabolic acidosis Disposition Disposition: Acute Care Hospital [facility] Discharge Date/Time: 05/02/21 17:22
--- NOTE | 2021-05-02 14:13 | ED.RN ---
1410: PD Officer Juliano reports that there are 11 hydrocodne pills, 4 tizanidiane and mutiple buspar lying around pts home. Per patients med bottles 73 hydrocodone pills are missing which was filled on 04/29/21
[2021-05-02 14:16] LABS: Allen Test Positive; Base Excess -8 mmol/L (-2 to +2); Bicarbonate 19.8 mmol/L (22-26); Blood Gas Specimen Type ART; FI02 100; O2 Delivery Device NRB; PO2 201 mmHG (75-100); SITE L Brach; SO2 100 % (95-99); Total Carbon Dioxide 21 mmol/L; pCO2 48.5 mmHg (35-45); pH 7.22 (7.35-7.45)
[2021-05-02] MEDS: Dextrose 10%-Water 250 ML IV.SOLN. IV (14:16)
--- NOTE | 2021-05-02 14:16 | ED.RN ---
Dr Portillo at bedside. [address] Portillo, D10% 250ml. verified with Hoa CEDILLO. Temp carter placed
--- NOTE | 2021-05-02 14:21 | CPS ---
ABG results were handed to Dr Portillo.
[2021-05-02 14:25] LABS: Mucous, Urine 0 SEEN /hpf (<or=2+)
[2021-05-02 14:27] LABS: Absolute Lymphocyte Count 0.92 X10^3/uL (0.83-4.51); Absolute Neutrophil Count 11.8 X10^3/uL (2.0-7.7); Basophil# 0.02 X10^3/uL; Basophil% 0.1 % (0-1); Eosinophil# 0.01 X10^3/uL; Eosinophils% 0.1 % (0-5); Hematocrit 42.3 % (37-47); Lymphocyte # 0.92 X10^3/ul (0.83-4.51); Lymphocyte % 6.8 % (19-41); Mean Corp Hgb Conc 35.5 g/dL (32-36); Mean Corpuscular Volume 81.8 fL (81-99); Mean Platelet Vol. 12.5 fl (6.2-12.0); Monocyte% 5.2 % (0-10); NRBC Flagged by Analyzer 0 % (0-5); Neutrophil # 11.77 X10^3/uL (2.7-7.7); Neutrophil % 86.8 % (47-70); Platelet Count 193 K/mm3 (150-450); RBC Distribution Width CV 16.9 % (11.6-14.6); RBC Distribution Width SD 50.4 fl (35.1-43.9); Red Blood Count 5.17 M/mm3 (4.2-5.4); White Blood Count 13.6 K/mm3 (4.4-11.0)
--- NOTE | 2021-05-02 14:28 | ED.RN ---
RT and this RN educated pt on possible need for intubation
--- NOTE | 2021-05-02 14:35 | RAD_ITS ---
STUDY: X-RAY CHEST REASON FOR EXAM: Female, 61 years old. Dyspnea TECHNIQUE: Single AP portable view of the chest. COMPARISON: Comparison is made with prior study dated 10/19/2020. FINDINGS: EKG electrodes are seen. The previously seen right-sided double lumen dialysis catheter has been removed. Hyperinflation. The lungs are clear. There is no demonstrated pleural abnormality. Normal size heart. Normal mediastinum and joe. Normal visualized pulmonary arteries. There is atherosclerotic calcification of the aortic arch with tortuosity. Normal visualized thoracic spine. Healed right-sided rib fractures. There is no demonstrated abnormality of the visualized soft tissue structures of the upper abdomen. RAD/Chest 1 View (Portable) IMPRESSION: Hyperinflation. The lungs are clear. Electronically Signed: Bon Valentin MD at 14:48 EST ,
[2021-05-02 14:40] LABS: Color, Urine Amber (Yellow); Glucose, Dipstick Normal (Normal); Ketone-Dipstick 5 mg/dl (Negative); Leukocyte Esterase-Dipstick 25 /ul (Negative); Nitrite-Dipstick Negative (Negative); Occult Blood-Urine 150 /ul (Negative); Protein-Dipstick 30 mg/dl (Negative); Specific Gravity, Urine 1.025 (1.002-1.030); Urine Clarity Sl. Cloudy (Clear); Urine Urobilinogen Normal (Normal)
[2021-05-02 14:43] LABS: Urine Bilirubin Dipstick 1 mg/dL (Negative)
[2021-05-02 14:47] LABS: Bacteria 1+ /hpf (None Seen); Red Blood Cells-Urine 10-25 SEEN /hpf (0-5); Squamous Epithelial Cells - UA 0-5 SEEN /hpf (5-10); White Blood Cells 0-5 SEEN /hpf (0-5)
[2021-05-02 14:54] LABS: Amphetamine Urine VISTA NEGATIVE (<1000 ng/mL); Barbiturate Urine VISTA NEGATIVE (< 200 ng/mL); Benzodiazepine Urine VISTA NEGATIVE (< 200 ng/mL); Cocaine Urine VISTA NEGATIVE (< 300 ng/mL); Ecstacy Urine VISTA NEGATIVE (< 500 ng/mL); Methadone Urine VISTA NEGATIVE (< 300 ng/mL); PCP Urine VISTA NEGATIVE (< 25 ng/mL); THC Urine VISTA POSITIVE (< 50 ng/mL); Vista UDS pH Range 5
[2021-05-02 14:54] LABS: ALB/GLOB Ratio 0.6 RATIO (0.9-2.4); AST(SGOT) 152 U/L (15-37); Acetaminophen (Tylenol) Level 7.9 ug/mL (10.0-30.0); Alanine Aminotransfer ALT/SGPT 57 U/L (13-56); Albumin, Serum 2.7 g/dL (3.2-5.0); Alcohol, Blood (Medical)-Serum < 3.0 mg/dL; Alkaline Phosphatase 120 U/L (45-117); Anion Gap 16 (5-15); BUN 121 mg/dL (7-18); BUN/Creat Ratio 13.1 RATIO (10-20); Chloride 81 mmol/L (98-107); Creatinine, Serum 9.22 mg/dL (0.55-1.02); EST Glomerular Filtration Rate 5 mL/min (>60); Est Glom Filt Rate - Afr Amer 6 mL/min (>60); Estimated Creatinine Clearance 5.84 ml/min; Globulin 4.4 g/dL (2.2-4.2); Glucose 107 mg/dL (74-106); Potassium 4.5 mmol/L (3.5-5.1); Protein, Total 7.1 g/dL (6.4-8.2); Salicylate 6.6 mg/dL (2.8-20.0); Sodium Level 119 mmol/L (136-145); Troponin-I HS 38 pg/mL (3.0-54.0)
[2021-05-02] MEDS: 0.9% Normal Saline 1,000 ML 1000 ML IV (15:02)
--- NOTE | 2021-05-02 15:07 | ED.RN ---
spoke with sonFredy on phone for pt update.
[2021-05-02 15:12] LABS: Lactic Acid 2.4 mmol/L (0.4-1.9)
--- NOTE | 2021-05-02 15:35 | US_ITS ---
STUDY: RENAL ULTRASOUND - COMPLETE REASON FOR EXAM: Female, 61 years old. LOVE TECHNIQUE: Ultrasound evaluation of the kidneys was performed with real-time and static helm-scale imaging. COMPARISON: None. FINDINGS: RIGHT KIDNEY: Normal location of the right kidney, which is normal in size. The right kidney measures 11 x 6 cm. There is a normal cortex of the right kidney. The renal cortex measures 1.3 cm. There is no right renal mass or cyst. There are no right renal calculi. There is no right hydronephrosis. DISTAL RIGHT URETER: There is non-visualization of the distal right ureter. There is no demonstrated right ureterovesical junction calculus. There is a visualized right ureteral jet. LEFT KIDNEY: Normal location of the left kidney, which is normal in size. The left kidney measures 12.5 x 6.3 cm. There is a normal cortex of the left kidney. The renal cortex measures 1.5 cm. There is no left renal mass or cyst. There are no left renal calculi. There is no left hydronephrosis. DISTAL LEFT URETER: There is non-visualization of the distal left ureter. There is no demonstrated left ureterovesical junction calculus. There is a visualized left ureteral jet. AORTA: There is obscuration of the abdominal aorta by overlying bowel gas I.V.C.: The IVC is obscured. BLADDER: There is a Roland balloon catheter in the urinary bladder. US/Kidney and Bladder IMPRESSION: There are no acute findings. Electronically Signed: Chuck Ferrer MD at 19:06 EST ,
--- NOTE | 2021-05-02 15:48 | ED.RN ---
1545: ICU DR at bedside with ED Pressure 42/30. 1000ml bag pressure bag infused. 70/41 BP recheck 1549. 1550 Central Line VORB per Bandar.
--- NOTE | 2021-05-02 15:51 | PCM.HP.STD ---
HPI - General General Date of Admission: 05/02/21 Date of Service: 05/02/21 Chief Complaint: Unresponsiveness - 1 day HPI Narrative JOHANA YBARRA, is a 61 F who presents with the above. Patient lives alone. Her neighbor and son reportedly called the EMS because she was not feeling well. When the EMS approached, her neighbor helped the EMS get into the house. Patient was seen sitting on her couch, she had pills laying on her head, all over beside head. She appeared very weak and confused. Patient stated that she was not trying to harm herself. She said that she takes 3 tablets of Vicodin a day. She stated that she has not been feeling well in the last few days. She denied any dysuria or frequency. She also stated that she has been coughing, productive of sputum. A temperature of 90 6.5F, heart rate was 88, respiratory rate 21, SPO2 is 92% on room air. WBC count was 13.6, hemoglobin of 15, platelet count of 193, pH of 7.22, PCO2 was 48.5, PO2 of 201, this was done on a nonrebreather mask. Sodium was 119, potassium 4.5, chloride 81, bicarbonate 22, BUN 121, creatinine 9.22, anion gap of 16. UA was unremarkable.Urine tox showed opiates, marijuana, acetaminophen level of 7.9. Admitting chest x-ray was unremarkable. [facility] Medical History Acute exacerbation of chronic low back pain Acute kidney injury LOVE (acute kidney injury) Atherosclerosis of [place] coronary artery of [place] heart without angina pectoris Essential (primary) hypertension Flu vaccine need Fracture tibia/fibula Frequent falls Generalized anxiety disorder with panic attacks Hyperlipidemia Low back pain Lump of breast, left Myocardial infarct Nicotine dependence NSTEMI (non-ST elevated myocardial infarction) (10/2016) Obesity (BMI 30-39.9) Osteoarthritis Paroxysmal atrial fibrillation Pneumonia Smoker Syncope and collapse UTI (urinary tract infection) Vascular catheter fitting or adjustment Vision problems Home Medications aspirin 81 mg PO DAILY@0800 10/29/17 [History Last Taken 10/17/20] clopidogrel 75 mg tablet 75 mg PO DAILY #90 tab 08/17/20 [Rx Last Taken 10/17/20] hydrocodone-acetaminophen 1 tab PO TID 08/29/20 [History Last Taken 10/17/20] tizanidine 4 mg PO TID PRN #0 tab 09/01/20 [Rx Last Taken 10/17/20] escitalopram oxalate [Lexapro] 20 mg PO DAILY 10/17/20 [History Last Taken 10/17/20] gabapentin 800 mg tablet 800 mg PO .qid tab 11/06/20 [History Last Taken Unknown] Handicap Placard #1 ea 11/07/20 [Rx Last Taken Unknown] hydrochlorothiazide 12.5 mg tablet 12.5 mg PO DAILY #90 tab 03/04/21 [Rx Last Taken Unknown] lisinopril 20 mg tablet 20 mg PO BID #180 tab 03/28/21 [Rx Last Taken Unknown] metoprolol tartrate 50 mg tablet 50 mg PO BID #180 tab 03/28/21 [Rx Last Taken Unknown] rosuvastatin 40 mg tablet 40 mg PO DAILY #90 tab 03/28/21 [Rx Last Taken Unknown] leg brace #1 ea 04/11/21 [Rx Last Taken Unknown] metoprolol tartrate 25 mg tablet 25 mg PO BID tab 04/17/21 [History Last Taken Unknown] albuterol sulfate 90 mcg/actuation aerosol inhaler 2 puff INHALATION Q6H PRN #18 gm 04/30/21 [Rx Last Taken Unknown] buspirone 10 mg tablet 20 mg PO TID #540 tab 04/30/21 [Rx Last Taken Unknown] trazodone 100 mg tablet 200 mg PO QHS #60 tab 04/30/21 [Rx Last Taken Unknown] Allergy/AdvReac Type Severity Reaction Status Date / Time adhesive AdvReac Other Verified 04/17/21 14:43 baclofen AdvReac LETHARGY Verified 04/17/21 14:43 Family History Father Hypertension Bowel disease Heart disease Kidney disease Mother Hypertension Arthritis Bowel disease Colon cancer Heart disease High cholesterol Grandmother Arthritis Breast cancer Brain tumor Lung cancer Grandfather Myocardial infarction Surgical History H/O laminectomy History of colonoscopy History of coronary artery stent placement (11/17/16) History of left heart catheterization History of splenectomy History of total right hip replacement Hx of bone graft (2014) S/P ORIF (open reduction internal fixation) fracture Social History adopted: No number of children: 1 current occupational status: unemployed Smoking Status: Current every day smoker tobacco type: cigarettes Tobacco: How many years used: 35 alcohol intake: current alcohol intake frequency: holidays/special occasions only Alcohol type: hard liquor substance use type: former substance user Date of last use: 20 years ago and marijuana caffeine: Yes Type: carbonated beverages and coffee what type of physical activity do you participate in: other details: Physical Therapy frequency: 3-4 times per week seatbelt use: always do you feel safe at home: Yes ROS Review of Systems ROS Unobtainable: due to encephalopathy Vital Signs Vital Signs Vital Signs: 05/02/21 13:43 05/02/21 14:00 05/02/21 14:06 Temperature 96.5 F L Temperature Source Temporal Pulse Rate 88 91 Respiratory Rate 21 H 18 Blood Pressure Blood Pressure Mean Pulse Ox 92 87 Oxygen Delivery Method Room Air Non-Rebreather Non-Rebreather Oxygen Flow Rate (L/min) 15 15 Fraction of Inspired Oxygen (FIO2) 05/02/21 14:25 05/02/21 14:30 05/02/21 14:56 Temperature 96.7 F L Temperature Source Temporal Pulse Rate 92 92 86 Respiratory Rate 24 H 27 H 19 H Blood Pressure 131/111 H 82/67 L Blood Pressure Mean 117 72 Pulse Ox 89 Oxygen Delivery Method Bi-pap Bi-pap Oxygen Flow Rate (L/min) Fraction of Inspired Oxygen (FIO2) 40 05/02/21 15:00 05/02/21 15:01 05/02/21 15:29 Temperature 96.4 F L 96.4 F L Temperature Source Temporal Temporal Pulse Rate 88 90 93 Respiratory Rate 25 H 29 H 18 Blood Pressure 89/71 L 121/98 H Blood Pressure Mean 77 105 Pulse Ox 98 Oxygen Delivery Method Bi-pap Bi-pap Oxygen Flow Rate (L/min) Fraction of Inspired Oxygen (FIO2) 40 05/02/21 15:34 Temperature 96.7 F L Temperature Source Temporal Pulse Rate 89 Respiratory Rate 15 Blood Pressure 124/112 H Blood Pressure Mean 116 Pulse Ox 100 Oxygen Delivery Method Bi-pap Oxygen Flow Rate (L/min) Fraction of Inspired Oxygen (FIO2) Weight Weight: 90.5 kg Body Mass Index (BMI) 33.2 Results Lab / Micro Data Result Diagrams: 05/02/21 13:45 05/02/21 13:45 Labs: Laboratory Results - last 24 hr 05/02/21 13:45: WBC 13.6 H, RBC 5.17, Hgb 15.0, Hct 42.3, MCV 81.8, MCH 29.0, MCHC 35.5, RDW Std Deviation 50.4 H, RDW Coeff of Aleksandar 16.9 H, Plt Count 193, MPV 12.5 H, Immature Gran % (Auto) 1.000 H, Neut % (Auto) 86.8 H, Lymph % (Auto) 6.8 L, Sampson % (Auto) 5.2, Eos % (Auto) 0.1, Baso % (Auto) 0.1, Absolute Neuts (auto) 11.8 H, Absolute Lymphs (auto) 0.92, Nucleated RBC % 0 05/02/21 13:45: Sodium 119 L*, Potassium 4.5, Chloride 81 L, Carbon Dioxide 22.0, Anion Gap 16 H, BUN 121 H*, Creatinine 9.22 H*, Estim Creat Clear Calc 5.84, Est GFR (MDRD) Af Amer 6 L, Est GFR (MDRD) Non-Af 5 L, BUN/Creatinine Ratio 13.1, Glucose 107 H, Calcium 8.0 L, Total Bilirubin 0.50, AST 152 H, ALT 57 H, Alkaline Phosphatase 120 H, Troponin I High Sens 38, Total Protein 7.1, Albumin 2.7 L, Globulin 4.4 H, Albumin/Globulin Ratio 0.6 L 05/02/21 13:45: Ethyl Alcohol < 3.0 05/02/21 13:45: Salicylates 6.6, Acetaminophen 7.9 L 05/02/21 13:52: POC Glucose 71 05/02/21 14:20: Urine Color Leilani, Urine Clarity Sl. Cloudy, Urine pH 5.0, Ur Specific Paradox 1.025, Urine Protein 30 H, Urine Glucose (UA) Normal, Urine Ketones 5 H, Urine Occult Blood 150 H, Urine Nitrite Negative, Urine Bilirubin 1 H, Urine Urobilinogen Normal, Ur Leukocyte Esterase 25 H, Urine RBC 10-25 SEEN, Urine WBC 0-5 SEEN, Ur Squamous Epith Cells 0-5 SEEN, Urine Bacteria 1+, Urine Mucus 0 SEEN 05/02/21 14:20: Urine Opiates Screen POSITIVE H, Urine Methadone Screen NEGATIVE, Ur Barbiturates Screen NEGATIVE, Ur Phencyclidine Scrn NEGATIVE, Ur Amphetamines Screen NEGATIVE, U Methamphetamin-MDMA NEGATIVE, U Benzodiazepines Scrn NEGATIVE, Urine Cocaine Screen NEGATIVE, U Cannabinoids Screen POSITIVE H, Ur Drug Screen Comment 05/02/21 14:30: Lactic Acid 2.4 H* Micro: Microbiology 05/02/21 14:00 Nasal Secretion SARS-CoV-2 Antigen (Rapid) - Final ABG Data ABG results: ABG 05/02/21 14:12 Specimen Type ART Sample Site L Brach pH 7.22 L Bicarbonate Actual 19.8 L Total CO2 21 Base Excess -8 L O2 Saturation 100 H O2 % 100 ABG pCO2 48.5 H ABG pO2 201 H Simon Test Positive O2 Delivery Device NRB Radiology Impression Chest X-Ray 05/02/21 14:35 IMPRESSION: Hyperinflation. The lungs are clear. Electronically Signed: Bon Valentin MD at 14:48 EST Reading Location ID and State: 3 [facility] , Service support , Assessment & Plan Assessment/Plan (1) Acute respiratory failure with hypoxia and hypercapnia: (2) LOVE (acute kidney injury): (3) Essential (primary) hypertension: (4) Borderline type 2 diabetes mellitus: (5) Hyperlipidemia: QUALIFIERS: Hyperlipidemia type: mixed hyperlipidemia Qualified Code(s): E78.2 - Mixed hyperlipidemia (6) Paroxysmal atrial fibrillation: (7) Nicotine dependence: QUALIFIERS: Nicotine product type: unspecified Substance use status: unspecified nicotine-induced disorder Qualified Code(s): F17.209 - Nicotine dependence, unspecified, with unspecified nicotine-induced disorders PLAN: 1. Acute combined respiratory failure, unclear etiology for now Patient with underlying history of COPD, also a smoker Admitting chest x-ray shows no infiltrate ABG showed respiratory acidosis with pH of 7.22, PCO2 48.5, PO2 of 201 She was started on BiPAP, appears to be mentating well; continue on BiPAP Continue breathing treatment, wean off for SPO2 more than 94% Repeat ABG pending Admit to ICU, pulmonology consult 2. Shock, unclear etiology, likely prerenal from dehydration versus sepsis Continue on IV fluids, pressors, empiric Zosyn Follow-up on blood cultures, sputum culture 3. Acute hyponatremia, sodium of 119, likely secondary to dehydration/use of hydrochlorothiazide Sodium was normal 3 weeks ago. Hold hydrochlorothiazide Trend BMP q4h, urine sodium, urine creatinine, urine osmolarity, Repeat blood work in a.m. 4. LOVE/anion gap metabolic acidosis, likely pre-renal secondary to dehydration/hydrochlorothiazide/poor p.o. intake Baseline Cr 0.75, admitting Cr was 9.22 No electrolyte imbalances, no current need for emergent dialysis Continue on IV fluids, check urine studies, renal ultrasound Nephrology consulted 5. Lactic acidosis, 2.4, likely secondary to #1, trend 6. Acute metabolic encephalopathy, likely secondary to #1, unclear etiology Need to rule out possible overdose Acetaminophen level was 7.9 on admission, recheck in 4 hours 7. Paroxysmal atrial fibrillation, now in normal sinus rhythm 8. Type II DM, complicated by neuropathy, not on medication Hold gabapentin Accu-Cheks every 6 hours, insulin sliding scale with Accu-Cheks 9. CAD/heart failure preserved EF, EF of 65%, stage I diastolic dysfunction/hyperlipidemia Continue with aspirin, Plavix, metoprolol, statin 10. Chronic back pain, follows with Dr. Fitzpatrick Hold tizanidine, gabapentin 11. DVT prophylaxis?heparin subcu 12. Patient initially told the ED physician repeatedly that she did not want to be intubated. I asked her again to clarify and she says she did not want to . She said only if resuscitation will be temporary. I told her that it will have to be if she wants aggressive resuscitation or otherwise. She stated that she does not want to . Her CODE STATUS will be full code Time spent discussing CODE STATUS 17 minutes Charges/Coding Visit Charges Inpatient E&M: 79586 Init Hosp L3 Procedures Hospitalists Procedures: [id number] Advncd Care Plan 30 Min
--- NOTE | 2021-05-02 15:53 | ED.RN ---
1555 DO Bandar at bedside. Central Line Procedure started at 1600. 83/57, 97% BiPap, 94HR, 18 RR 1613 DO Bianca at bedside. 1618: 74/48, 97% BiPap, 94H, 16 RR 1639: DO Bandar VORB 2- 1000ml NS Bolus. DO Vern called to bedside to assist with Central Line Placement 1648: Central Line Placement unsuccessful
[2021-05-02] MEDS: 0.9% Normal Saline 1,000 ML 999 ML IV ×2 (16:40→17:00)
--- NOTE | 2021-05-02 17:12 | RAD_ITS ---
STUDY: XR Chest 1 View 05/02/2021 5:07 PM REASON FOR EXAM: Female, 61 years old. CHEST PAIN dyspnea COMPARISON: Study done earlier today. TECHNIQUE: XR Chest 1 View FINDINGS: There is no demonstrated pleural abnormality. Normal heart size. Normal mediastinum. Normal joe. Prominent appearing increased interstitial lung markings. Normal visualized pulmonary arteries. There is atherosclerotic calcification of the aortic arch with tortuosity. There are diffuse degenerative changes of the visualized thoracic spine. There is degenerative osteoarthritis of the bilateral shoulders. There is no demonstrated abnormality of the visualized soft tissue structures of the upper abdomen. RAD/Chest 1 View (Portable) IMPRESSION: There are no acute findings. Electronically Signed: Chuck Ferrer MD at 18:11 EST ,
[2021-05-02 17:44] LABS: CPK Total, Creatine Kinase 5425 U/L (26-192)
[2021-05-02 17:57] LABS: Osmolality, Urine 368 mOsm/KG
[2021-05-02] MEDS: 0.9% Saline Lock 10 ML Syringe IV (18:01)
[2021-05-02] MEDS: 0.9% Normal Saline 1,000 ML 150 ML IV (18:01)
[2021-05-02 18:05] LABS: Urine Sodium 9 mmol/L (Not Establ.)
[2021-05-02 18:20] LABS: Bedside Glucose 69 mg/dL (70-110)
[2021-05-02 18:23] LABS: Acetaminophen (Tylenol) Level 10.7 ug/mL (10.0-30.0)
[2021-05-02 18:33] LABS: Reflex Lactate? Y
--- NOTE | 2021-05-02 18:45 | CON.PCM.CC_ITS ---
Assessment & Plan Assessment/Plan (1) Acute kidney injury: (2) Acute respiratory failure with hypoxia and hypercapnia: (3) Hypotension: (4) COPD (chronic obstructive pulmonary disease): (5) Paroxysmal atrial fibrillation: (6) Nicotine dependence: QUALIFIERS: Nicotine product type: unspecified Substance use status: unspecified nicotine-induced disorder Qualified Code(s): F17.209 - Nicotine dependence, unspecified, with unspecified nicotine-induced disorders PLAN: RECOMMENDATIONS: 1. Wean supplemental oxygen as tolerated. BiPAP rescue if needed 2. Agree with empiric antibiotics and bronchodilators 3. Fluid resuscitation 4. Aggressive blood sugar control 5. Hold antihypertensives, gabapentin and tizanidine 6. No indication for NAC therapy IMPRESSIONS: 1. Acute hypercarbic respiratory failure of unclear etiology Patient was noted to have an elevated PaO2 with CO2 retention. Patient does have a history of COPD, some may have lost respiratory drive. Patient appears to be okay at this time. Will use BiPAP if necessary. Wean supplemental oxygen to keep saturations between 90 and 94%. Reasonable to initiate bronchodilators. No significant wheezing noted on exam. Likely okay to hold on steroids for now. 2. Acute on chronic kidney disease stage III/hypovolemic hyponatremia Clinical suspicion for dehydration and prerenal etiology leading to acute kidney injury. Patient has no indication for acute renal replacement therapy. Patient was placed on IV fluids appropriately. Nephrology was consulted. Renal ultrasound ordered. Urine appears to be improving with volume resuscitation. Hold hydrochlorothiazide. Patient may have an element of retained/slow metabolism of some drugs including gabapentin. 3. Elevated liver enzymes/acute metabolic encephalopathy Unclear etiology. Patient may have an element of chronic Tylenol toxicity. However, Tylenol level is only minimally elevated. No indication for NAC therapy. Will monitor clinically. 4. Chronic diastolic CHF/paroxysmal A. fib Patient currently in normal sinus rhythm. Okay to continue with Plavix, statin and aspirin. Would hold metoprolol as patient has had some hypotension and will have possible difficulty clearing other medications. Hold on echocardiogram for now. 5. Obesity/chronic pain syndrome/type 2 diabetes mellitus/debility Complicates care, management, recovery and prognosis. We will need to watch blood sugars closely. Dextrose boluses as necessary. Hold all pain medications. Will likely need to work with PT/OT for discharge planning. HPI Consult Data Date of Consult: 02/03/22 HPI Narrative HPI Narrative: JOHANA YBARRA is a 61 F, with past medical history listed below, who presents to [facility] on 05/02/2021 secondary to altered mental status. Patient had reportedly called her son and was not making sense, so EMS was called. EMS reportedly had given 1 mg of Narcan with only slight improvement. Patient was not very conversational. Patient reports that she had taken 2 pain pills earlier in the day. Police had gone back out to her residence and noted that there were 11 hydrocodone tablets left out of her prescription of 84 that was filled on April 29, 2021. In the ER, patient was afebrile, but hypoxic. Patient progressively became more hypotensive while in the ER. Laboratory data showed a white blood cell count of 13.6, hemoglobin of 15 and a platelet count of 193. Patient's sodium was decreased at 119, BUN of 121 and a creatinine of 9.22. Liver enzymes were slightly elevated. Alcohol level was negative. UA was relatively unremarkable. Salicylate level was 6.6 and Tylenol was 7.9. Patient's glucose was noted to be at 71 and lactate was elevated at 2.4. Opiates and cannabinoids were positive. An ABG on a nonrebreather showed a pH of 7.22, PCO2 of 48, PO2 of 201 and a saturation of 100%. Chest x-ray showed hyperinflation with no acute infiltrates. This was personally reviewed. The ER reportedly tried to get a central line secondary to hypotension multiple times but were unsuccessful. The patient was sent to the intensive care unit without central access because blood pressures reportedly improved. On my evaluation in the intensive care unit, patient was doing okay. Patient was more conversational. Patient had reported some nausea and vomiting for the last week. Patient had reported some loose bowel movements. Patient states that has improved and she believes she is just dehydrated. Patient does report a history of needing dialysis in September. Patient states she follows with Dr. Bolden. Patient is unaware of her baseline creatinine. Patient's son had called and stated that she essentially smokes cigarettes, takes pain pills and watches TV all day. Patient does carry a diagnosis of COPD, but is unaware of her home inhalers. Patient states he does take her medications as prescribed. Patient answers I am not sure to most questions and review of systems. Patient's nurse had her in the ER and states that she is becoming more conversational. PFSH Medical History Acute exacerbation of chronic low back pain Acute kidney injury LOVE (acute kidney injury) Atherosclerosis of [place] coronary artery of [place] heart without angina pectoris Essential (primary) hypertension Flu vaccine need Fracture tibia/fibula Frequent falls Generalized anxiety disorder with panic attacks Hyperlipidemia Low back pain Lump of breast, left Myocardial infarct Nicotine dependence NSTEMI (non-ST elevated myocardial infarction) (10/2016) Obesity (BMI 30-39.9) Osteoarthritis Paroxysmal atrial fibrillation Pneumonia Smoker Syncope and collapse UTI (urinary tract infection) Vascular catheter fitting or adjustment Vision problems Home Medications aspirin 81 mg PO DAILY@0800 10/29/17 [History Last Taken 10/17/20] clopidogrel 75 mg tablet 75 mg PO DAILY #90 tab 08/17/20 [Rx Last Taken ] hydrocodone-acetaminophen 1 tab PO TID 08/29/20 [History Last Taken 10/17/20] tizanidine 4 mg PO TID PRN #0 tab 09/01/20 [Rx Last Taken 10/17/20] escitalopram oxalate [Lexapro] 20 mg PO DAILY 10/17/20 [History Last Taken 10/17/20] gabapentin 800 mg tablet 800 mg PO .qid tab 11/06/20 [History Last Taken Unknown] Handicap Placard #1 ea 11/07/20 [Rx Last Taken Unknown] hydrochlorothiazide 12.5 mg tablet 12.5 mg PO DAILY #90 tab 03/04/21 [Rx Last Taken Unknown] lisinopril 20 mg tablet 20 mg PO BID #180 tab 03/28/21 [Rx Last Taken Unknown] metoprolol tartrate 50 mg tablet 50 mg PO BID #180 tab 03/28/21 [Rx Last Taken Unknown] rosuvastatin 40 mg tablet 40 mg PO DAILY #90 tab 03/28/21 [Rx Last Taken Unknown] leg brace #1 ea 04/11/21 [Rx Last Taken Unknown] metoprolol tartrate 25 mg tablet 25 mg PO BID tab 04/17/21 [History Last Taken Unknown] albuterol sulfate 90 mcg/actuation aerosol inhaler 2 puff INHALATION Q6H PRN #18 gm 04/30/21 [Rx Last Taken Unknown] buspirone 10 mg tablet 20 mg PO TID #540 tab 04/30/21 [Rx Last Taken Unknown] trazodone 100 mg tablet 200 mg PO QHS #60 tab 04/30/21 [Rx Last Taken Unknown] Allergy/AdvReac Type Severity Reaction Status Date / Time adhesive AdvReac Other Verified 04/17/21 14:43 baclofen AdvReac LETHARGY Verified 04/17/21 14:43 Family History Father Hypertension Bowel disease Heart disease Kidney disease Mother Hypertension Arthritis Bowel disease Colon cancer Heart disease High cholesterol Grandmother Arthritis Breast cancer Brain tumor Lung cancer Grandfather Myocardial infarction Surgical History H/O laminectomy History of colonoscopy History of coronary artery stent placement (11/17/16) History of left heart catheterization History of splenectomy History of total right hip replacement Hx of bone graft (2014) S/P ORIF (open reduction internal fixation) fracture Social History adopted: No number of children: 1 current occupational status: unemployed Smoking Status: Current every day smoker tobacco type: cigarettes Tobacco: How many years used: 35 alcohol intake: current alcohol intake frequency: holidays/special occasions only Alcohol type: hard liquor substance use type: former substance user Date of last use: 20 years ago and marijuana caffeine: Yes Type: carbonated beverages and coffee what type of physical activity do you participate in: other details: Physical Therapy frequency: 3-4 times per week seatbelt use: always do you feel safe at home: Yes ROS Review of Systems ROS Unobtainable: due to encephalopathy Physical Exam Narrative Hyperpigmented. Appears older than stated age Const alert and no apparent distress Orientation / Consciousness: oriented to person HEENT normocephalic, head/scalp atraumatic and hearing grossly normal bilaterally HEENT Narrative: Dressing noted over right neck. Eyes PERRL, EOMs intact bilaterally and conjunctivae normal Neck no lymphadenopathy, supple and no JVD Chest inspection of chest normal Chest: symmetrical chest wall rise; Negative for crepitus Resp normal respiratory effort, no retractions, no use of accessory muscles and clear to auscultation bilaterally Auscultation: Negative for rales, rhonchi or wheezes Cardio regular rhythm, no murmurs, no rub and no gallops Rate: tachycardic GI normal to inspection, nondistended, normoactive bowel sounds, soft to palpation and non-tender Extremity normal to inspection, full ROM and no clubbing, cyanosis or edema Skin no rashes or lesions noted, no wounds and skin turgor normal Neuro CN's II-XII intact bilaterally Psych Appearance: bizarre Activity / Motor Behavior: fidgetting; Negative for appropriate eye contact Lab / Micro Data Result Diagrams: 05/02/21 13:45 05/02/21 13:45 Labs: Laboratory Results - last 24 hr 05/02/21 13:45: WBC 13.6 H, RBC 5.17, Hgb 15.0, Hct 42.3, MCV 81.8, MCH 29.0, MCHC 35.5, RDW Std Deviation 50.4 H, RDW Coeff of Aleksandar 16.9 H, Plt Count 193, MPV 12.5 H, Immature Gran % (Auto) 1.000 H, Neut % (Auto) 86.8 H, Lymph % (Auto) 6.8 L, [place] % (Auto) 5.2, Eos % (Auto) 0.1, Baso % (Auto) 0.1, Absolute Neuts (auto) 11.8 H, Absolute Lymphs (auto) 0.92, Nucleated RBC % 0 05/02/21 13:45: Sodium 119 L*, Potassium 4.5, Chloride 81 L, Carbon Dioxide 22.0, Anion Gap 16 H, BUN 121 H*, Creatinine 9.22 H*, Estim Creat Clear Calc 5.84, Est GFR (MDRD) Af Amer 6 L, Est GFR (MDRD) Non-Af 5 L, BUN/Creatinine Ratio 13.1, Glucose 107 H, Calcium 8.0 L, Total Bilirubin 0.50, AST 152 H, ALT 57 H, Alkaline Phosphatase 120 H, Troponin I High Sens 38, Total Protein 7.1, Albumin 2.7 L, Globulin 4.4 H, Albumin/Globulin Ratio 0.6 L 05/02/21 13:45: Ethyl Alcohol < 3.0 05/02/21 13:45: Salicylates 6.6, Acetaminophen 7.9 L 05/02/21 13:45: Total Creatine Kinase 5425 H 05/02/21 13:52: POC Glucose 71 05/02/21 14:20: Urine Color Leilani, Urine Clarity Sl. Cloudy, Urine pH 5.0, Ur Specific [place] 1.025, Urine Protein 30 H, Urine Glucose (UA) Normal, Urine Ketones 5 H, Urine Occult Blood 150 H, Urine Nitrite Negative, Urine Bilirubin 1 H, Urine Urobilinogen Normal, Ur Leukocyte Esterase 25 H, Urine RBC 10-25 SEEN, Urine WBC 0-5 SEEN, Ur Squamous Epith Cells 0-5 SEEN, Urine Bacteria 1+, Urine Mucus 0 SEEN 05/02/21 14:20: Urine Opiates Screen POSITIVE H, Urine Methadone Screen NEGATIVE, Ur Barbiturates Screen NEGATIVE, Ur Phencyclidine Scrn NEGATIVE, Ur Amphetamines Screen NEGATIVE, U Methamphetamin-MDMA NEGATIVE, U Benzodiazepines Scrn NEGATIVE, Urine Cocaine Screen NEGATIVE, U Cannabinoids Screen POSITIVE H, Ur Drug Screen Comment 05/02/21 14:20: Urine Osmolality 368, Ur Random Sodium 9, Urine Creatinine 227.00 05/02/21 14:30: Lactic Acid 2.4 H* 05/02/21 15:31: Sodium Cancelled, Potassium Cancelled, Chloride Cancelled, Carbon Dioxide Cancelled, Anion Gap Cancelled, BUN Cancelled, Creatinine Cancelled, Est GFR (MDRD) Af Amer Cancelled, Est GFR (MDRD) Non-Af Cancelled, BUN/Creatinine Ratio Cancelled, Glucose Cancelled, Calcium Cancelled 05/02/21 17:45: Acetaminophen 10.7 05/02/21 18:10: POC Glucose 69 L Micro: Microbiology 05/02/21 14:00 Nasal Secretion SARS-CoV-2 Antigen (Rapid) - Final ABG Data ABG results: ABG 05/02/21 14:12 Specimen Type ART Sample Site L Brach pH 7.22 L Bicarbonate Actual 19.8 L Total CO2 21 Base Excess -8 L O2 Saturation 100 H O2 % 100 ABG pCO2 48.5 H ABG pO2 201 H Simon Test Positive O2 Delivery Device NRB Radiology Impression Chest X-Ray 05/02/21 14:35 IMPRESSION: Hyperinflation. The lungs are clear. Electronically Signed: Bon Valentin MD at 14:48 EST , Chest X-Ray 05/02/21 17:12 IMPRESSION: There are no acute findings. Electronically Signed: Chuck Ferrer MD at 18:11 EST Reading Location ID and State: [facility] / [place] , Service support , Charges/Coding Visit Charges Inpatient E&M: 03456 Init Hosp L3
[2021-05-02 22:36] LABS: Anion Gap 11 (5-15); BUN 103 mg/dL (7-18); BUN/Creat Ratio 13.9 RATIO (10-20); Calcium,Total 6.1 mg/dL (8.5-10.1); Chloride 100 mmol/L (98-107); Creatinine, Serum 7.43 mg/dL (0.55-1.02); EST Glomerular Filtration Rate 6 mL/min (>60); Est Glom Filt Rate - Afr Amer 7 mL/min (>60); Estimated Creatinine Clearance 7.25 ml/min; Glucose 107 mg/dL (74-106); Potassium 4.2 mmol/L (3.5-5.1); Sodium Level 129 mmol/L (136-145)
[2021-05-02 23:10] LABS: Base Excess -11 mmol/L (-2 to +2); Bicarbonate 17.9 mmol/L (22-26); Blood Gas Specimen Type ART; O2 Delivery Device Cannula; PO2 51 mmHG (75-100); SITE L Radial; SO2 76 % (95-99); Total Carbon Dioxide 19 mmol/L; pCO2 48.3 mmHg (35-45); pH 7.18 (7.35-7.45)
[2021-05-03] VITALS (34 sets, daily range): BP systolic 57–179; BP diastolic 38–156; PULSE 74–109; RESP 14–24; TEMP 36.1–37.1; O2SAT 88–100
[2021-05-03] MEDS: 0.9% Saline Lock 10 ML Syringe IV (00:27)
[2021-05-03] MEDS: Heparin Injection (Vial) 5,000 UNIT/ML VIAL 5000 UNIT SC ×4 (00:27→21:34)
[2021-05-03 00:31] LABS: Bedside Glucose 107 mg/dL (70-110)
--- NOTE | 2021-05-03 00:50 | CPS ---
Critical ABG results read back to Dr. Ramos
[2021-05-03] MEDS: 0.9% Normal Saline 1,000 ML 150 ML IV ×2 (01:32→02:00)
[2021-05-03 04:51] LABS: Absolute Lymphocyte Count 0.74 X10^3/uL (0.83-4.51); Absolute Neutrophil Count 9.5 X10^3/uL (2.0-7.7); Basophil# 0.02 X10^3/uL; Basophil% 0.2 % (0-1); Hematocrit 36.6 % (37-47); Hemoglobin 12.1 g/dL (12.0-15.0); Lymphocyte # 0.74 X10^3/ul (0.83-4.51); Lymphocyte % 6.6 % (19-41); Mean Corp Hgb Conc 33.1 g/dL (32-36); Mean Corpuscular Hgb 28.8 pg (27.0-32.0); Mean Corpuscular Volume 87.1 fL (81-99); Mean Platelet Vol. 12.3 fl (6.2-12.0); Monocyte# 0.82 X10^3/uL; Monocyte% 7.3 % (0-10); NRBC Flagged by Analyzer 0 % (0-5); Neutrophil # 9.51 X10^3/uL (2.7-7.7); Platelet Count 157 K/mm3 (150-450); RBC Distribution Width CV 17.2 % (11.6-14.6); RBC Distribution Width SD 55.1 fl (35.1-43.9); White Blood Count 11.2 K/mm3 (4.4-11.0)
[2021-05-03 05:24] LABS: ALB/GLOB Ratio 0.6 RATIO (0.9-2.4); AST(SGOT) 180 U/L (15-37); Alanine Aminotransfer ALT/SGPT 57 U/L (13-56); Albumin, Serum 1.8 g/dL (3.2-5.0); Alkaline Phosphatase 89 U/L (45-117); Anion Gap 13 (5-15); BUN 103 mg/dL (7-18); BUN/Creat Ratio 14.2 RATIO (10-20); Chloride 100 mmol/L (98-107); Creatinine, Serum 7.26 mg/dL (0.55-1.02); EST Glomerular Filtration Rate 6 mL/min (>60); Est Glom Filt Rate - Afr Amer 7 mL/min (>60); Estimated Creatinine Clearance 7.42 ml/min; Globulin 3.2 g/dL (2.2-4.2); Glucose 85 mg/dL (74-106); Potassium 3.7 mmol/L (3.5-5.1); Sodium Level 131 mmol/L (136-145)
[2021-05-03] MEDS: Ipratropium/Albuterol Sulfate 3 ML AMPUL.NEB INHALATION ×4 (06:45→19:25)
--- NOTE | 2021-05-03 06:49 | PN.CC_ITS ---
Assessment & Plan Assessment/Plan (1) Acute kidney injury: (2) Acute respiratory failure with hypoxia and hypercapnia: (3) Hypotension: (4) COPD (chronic obstructive pulmonary disease): (5) Paroxysmal atrial fibrillation: (6) Nicotine dependence: QUALIFIERS: Nicotine product type: unspecified Substance use status: unspecified nicotine-induced disorder Qualified Code(s): F17.209 - Nicotine dependence, unspecified, with unspecified nicotine-induced disorders PLAN: RECOMMENDATIONS: 1. Wean supplemental oxygen as tolerated. BiPAP rescue if needed 2. Agree with empiric antibiotics and bronchodilators 3. We will add a bicarbonate drip, keeping total fluids at 150 cc an hour 4. Aggressive blood sugar control 5. Hold antihypertensives, gabapentin and tizanidine 6. No indication for NAC therapy 7. Continue to monitor in intensive care given marginal blood pressures IMPRESSIONS: 1. Acute hypercarbic respiratory failure of unclear etiology Patient was noted to have an elevated PaO2 with CO2 retention. Patient does have a history of COPD, some may have lost respiratory drive. Patient appears to be okay at this time. Will use BiPAP if necessary. Wean supplemental oxygen to keep saturations between 90 and 94%. Reasonable to initiate bronchodilators. No significant wheezing noted on exam. Likely okay to hold on steroids for now. Patient does have increased respiratory demand secondary to nonanion gap metabolic acidosis associated with problem #2. 2. Acute on chronic kidney disease stage III/hypovolemic hyponatremia Clinical suspicion for dehydration and prerenal etiology leading to acute kidney injury. Patient has no indication for acute renal replacement therapy. Will add bicarbonate drip and keep total fluids at 150 cc/h. Nephrology was consulted. Renal ultrasound ordered. Urine appears to be improving with volume resuscitation. Hold hydrochlorothiazide. Patient may have an element of retained/slow metabolism of some drugs including gabapentin. 3. Elevated liver enzymes/acute metabolic encephalopathy Unclear etiology. Patient may have an element of chronic Tylenol toxicity. However, Tylenol level is only minimally elevated. No indication for NAC therapy. These appear to be relatively stable. G will monitor clinically. 4. Chronic diastolic CHF/paroxysmal A. fib Patient currently in normal sinus rhythm. Okay to continue with Plavix, statin and aspirin. Would hold metoprolol as patient has had some hypotension and will have possible difficulty clearing other medications. Hold on echocardiogram for now. Troponins have been unremarkable 5. Obesity/chronic pain syndrome/type 2 diabetes mellitus/debility Complicates care, management, recovery and prognosis. We will need to watch blood sugars closely. Dextrose boluses as necessary. Hold all pain medications. Will likely need to work with PT/OT for discharge planning. Subjective Subjective Patient did okay overnight from a hemodynamic standpoint. Patient has been responsive and intermittently oriented to place. Blood pressures have been marginal, but no pressors have had to be initiated. No fevers have been noted. Patient has had urine output noted. Patient is not reporting any pain. Some concern patient may be hallucinating as she does tend to pick at things in the air. Objective Data Objective Data Vital Signs: Vital Signs Temp Pulse Resp BP Pulse Ox 37.1 C 109 H 18 82/68 L 94 05/03/21 04:00 05/03/21 06:47 05/03/21 06:47 05/03/21 06:00 05/03/21 06:47 Oxygen Flow Rate (L/min) 6 Oxygen Delivery Method Nasal Cannula Weight: 97.1 kg Body Mass Index (BMI) 34.2 Intake & Output: Intake and Output for Last 24 Hours 05/01/21 05/02/21 05/03/21 23:59 23:59 23:59 Intake Total 2883 / 2883 1190 / 1190 Output Total 250 / 250 75 / 75 Balance 2633 / 2633 1115 / 1115 Lab / Micro Data Result Diagrams: 05/03/21 04:45 05/03/21 04:45 Labs: Laboratory Results - last 24 hr 05/02/21 13:45: WBC 13.6 H, RBC 5.17, Hgb 15.0, Hct 42.3, MCV 81.8, MCH 29.0, MCHC 35.5, RDW Std Deviation 50.4 H, RDW Coeff of Aleksandar 16.9 H, Plt Count 193, MPV 12.5 H, Immature Gran % (Auto) 1.000 H, Neut % (Auto) 86.8 H, Lymph % (Auto) 6.8 L, [place] % (Auto) 5.2, Eos % (Auto) 0.1, Baso % (Auto) 0.1, Absolute Neuts (auto) 11.8 H, Absolute Lymphs (auto) 0.92, Nucleated RBC % 0 05/02/21 13:45: Sodium 119 L*, Potassium 4.5, Chloride 81 L, Carbon Dioxide 22.0, Anion Gap 16 H, BUN 121 H*, Creatinine 9.22 H*, Estim Creat Clear Calc 5.84, Est GFR (MDRD) Af Amer 6 L, Est GFR (MDRD) Non-Af 5 L, BUN/Creatinine Ratio 13.1, Glucose 107 H, Calcium 8.0 L, Total Bilirubin 0.50, AST 152 H, ALT 57 H, Alkaline Phosphatase 120 H, Troponin I High Sens 38, Total Protein 7.1, Albumin 2.7 L, Globulin 4.4 H, Albumin/Globulin Ratio 0.6 L 05/02/21 13:45: Ethyl Alcohol < 3.0 05/02/21 13:45: Salicylates 6.6, Acetaminophen 7.9 L 05/02/21 13:45: Total Creatine Kinase 5425 H 05/02/21 13:52: POC Glucose 71 05/02/21 14:20: Urine Color Leilani, Urine Clarity Sl. Cloudy, Urine pH 5.0, Ur Specific [place] 1.025, Urine Protein 30 H, Urine Glucose (UA) Normal, Urine Ketones 5 H, Urine Occult Blood 150 H, Urine Nitrite Negative, Urine Bilirubin 1 H, Urine Urobilinogen Normal, Ur Leukocyte Esterase 25 H, Urine RBC 10-25 SEEN, Urine WBC 0-5 SEEN, Ur Squamous Epith Cells 0-5 SEEN, Urine Bacteria 1+, Urine Mucus 0 SEEN 05/02/21 14:20: Urine Opiates Screen POSITIVE H, Urine Methadone Screen NEGATIVE, Ur Barbiturates Screen NEGATIVE, Ur Phencyclidine Scrn NEGATIVE, Ur Amphetamines Screen NEGATIVE, U Methamphetamin-MDMA NEGATIVE, U Benzodiazepines Scrn NEGATIVE, Urine Cocaine Screen NEGATIVE, U Cannabinoids Screen POSITIVE H, Ur Drug Screen Comment 05/02/21 14:20: Urine Osmolality 368, Ur Random Sodium 9, Urine Creatinine 227.00 05/02/21 14:30: Lactic Acid 2.4 H* 05/02/21 15:31: Sodium Cancelled, Potassium Cancelled, Chloride Cancelled, Carbon Dioxide Cancelled, Anion Gap Cancelled, BUN Cancelled, Creatinine Ca ncelled, Est GFR (MDRD) Af Amer Cancelled, Est GFR (MDRD) Non-Af Cancelled, BUN/Creatinine Ratio Cancelled, Glucose Cancelled, Calcium Cancelled 05/02/21 17:45: Acetaminophen 10.7 05/02/21 18:10: POC Glucose 69 L 05/02/21 22:05: Sodium 129 L, Potassium 4.2, Chloride 100, Carbon Dioxide 18.0 L , Anion Gap 11, BUN 103 H*, Creatinine 7.43 H*, Estim Creat Clear Calc 7.25, Est GFR (MDRD) Af Amer 7 L, Est GFR (MDRD) Non-Af 6 L, BUN/Creatinine Ratio 13.9, Glucose 107 H, Calcium 6.1 L* 05/03/21 00:25: POC Glucose 107 05/03/21 04:45: WBC 11.2 H, RBC 4.20, Hgb 12.1, Hct 36.6 L, MCV 87.1 D, MCH 28.8, MCHC 33.1 D, RDW Std Deviation 55.1 H, RDW Coeff of Aleksandar 17.2 H, Plt Count 157, MPV 12.3 H, Immature Gran % (Auto) 0.900, Neut % (Auto) 85.0 H, Lymph % (Auto) 6.6 L, [place] % (Auto) 7.3, Eos % (Auto) 0.0, Baso % (Auto) 0.2, Absolute Neuts (auto) 9.5 H, Absolute Lymphs (auto) 0.74 L, Nucleated RBC % 0 05/03/21 04:45: Sodium 131 L, Potassium 3.7, Chloride 100, Carbon Dioxide 18.0 L , Anion Gap 13, BUN 103 H*, Creatinine 7.26 H, Estim Creat Clear Calc 7.42, Est GFR (MDRD) Af Amer 7 L, Est GFR (MDRD) Non-Af 6 L, BUN/Creatinine Ratio 14.2, Glucose 85, Calcium 7.0 L, Total Bilirubin 0.30, AST 180 H, ALT 57 H, Alkaline Phosphatase 89, Total Protein 5.0 L, Albumin 1.8 L, Globulin 3.2, Albumin/Globulin Ratio 0.6 L Micro: Microbiology 05/02/21 14:00 Nasal Secretion SARS-CoV-2 Antigen (Rapid) - Final ABG Data ABG results: ABG 05/02/21 05/02/21 14:12 23:03 Specimen Type ART ART Sample Site L Brach L Radial pH 7.22 L 7.18 L* Bicarbonate Actual 19.8 L 17.9 L Total CO2 21 19 Base Excess -8 L -11 L O2 Saturation 100 H 76 L O2 % 100 ABG pCO2 48.5 H 48.3 H ABG pO2 201 H 51 L Simon Test Positive N/A O2 Delivery Device NRB Cannula Liter Flow 2.0 Crit Call To/Read Back Yes Radiography Diagnostic Testing: Radiology Impression Chest X-Ray 05/02/21 14:35 IMPRESSION: Hyperinflation. The lungs are clear. Electronically Signed: Bon Valentin MD at 14:48 EST , Renal Ultrasound 05/02/21 15:35 IMPRESSION: There are no acute findings. Electronically Signed: Chuck Ferrer MD at 19:06 EST , Chest X-Ray 05/02/21 17:12 IMPRESSION: There are no acute findings. Electronically Signed: Chuck Ferrer MD at 18:11 EST , Physical Exam Narrative Hyperpigmented. Appears older than stated age Const alert and no apparent distress Orientation / Consciousness: oriented to person HEENT normocephalic, head/scalp atraumatic and hearing grossly normal bilaterally HEENT Narrative: No significant hematoma noted at central line attempts Eyes PERRL, EOMs intact bilaterally and conjunctivae normal Neck no lymphadenopathy, supple and no JVD Chest inspection of chest normal Chest: symmetrical chest wall rise; Negative for crepitus Resp normal respiratory effort, no retractions, no use of accessory muscles and clear to auscultation bilaterally Auscultation: Negative for rales, rhonchi or wheezes Cardio regular rhythm, no murmurs, no rub and no gallops Rate: tachycardic GI normal to inspection, nondistended, normoactive bowel sounds, soft to palpation and non-tender Extremity normal to inspection, full ROM and no clubbing, cyanosis or edema Skin no rashes or lesions noted, no wounds and skin turgor normal Neuro CN's II-XII intact bilaterally Psych Appearance: bizarre Activity / Motor Behavior: fidgetting; Negative for appropriate eye contact Charges/Coding Visit Charges Inpatient E&M: 11349 Subs Hosp L3
[2021-05-03] MEDS: 0.9% Normal Saline 1,000 ML 75 ML IV (08:14)
[2021-05-03] MEDS: 0.45% Normal Saline 1,000 ML 75 ML IV ×2 (08:27→21:34)
[2021-05-03 12:25] LABS: Bedside Glucose 129 mg/dL (70-110)
--- NOTE | 2021-05-03 12:49 | PCM.PN.HOSP ---
Subjective Subjective Patient was seen and examined today in ICU, she tells me she is in the hospital at [facility] but will not carry on an intelligible conversation with me at this time. Patient's blood pressures been running low-73/44. Objective Data Objective Data Vital Signs: Vital Signs Temp Pulse Resp BP Pulse Ox 98.4 F 93 14 73/44 L 90 05/03/21 08:00 05/03/21 11:00 05/03/21 11:00 05/03/21 11:00 05/03/21 11:00 Oxygen Flow Rate (L/min) 5 Oxygen Delivery Method Bi-pap Weight: 97.1 kg Body Mass Index (BMI) 34.2 Intake & Output: Intake and Output for Last 24 Hours 05/01/21 05/02/21 05/03/21 23:59 23:59 23:59 Intake Total 2883 / 2883 / Output Total 250 / 250 75 / 75 Balance 2633 / 2633 Lab / Micro Data Result Diagrams: 05/03/21 04:45 05/03/21 04:45 Labs: Laboratory Results - last 24 hr 05/02/21 13:45: WBC 13.6 H, RBC 5.17, Hgb 15.0, Hct 42.3, MCV 81.8, MCH 29.0, MCHC 35.5, RDW Std Deviation 50.4 H, RDW Coeff of Aleksandar 16.9 H, Plt Count 193, MPV 12.5 H, Immature Gran % (Auto) 1.000 H, Neut % (Auto) 86.8 H, Lymph % (Auto) 6.8 L, [place] % (Auto) 5.2, Eos % (Auto) 0.1, Baso % (Auto) 0.1, Absolute Neuts (auto) 11.8 H, Absolute Lymphs (auto) 0.92, Nucleated RBC % 0 05/02/21 13:45: Sodium 119 L*, Potassium 4.5, Chloride 81 L, Carbon Dioxide 22.0, Anion Gap 16 H, BUN 121 H*, Creatinine 9.22 H*, Estim Creat Clear Calc 5.84, Est GFR (MDRD) Af Amer 6 L, Est GFR (MDRD) Non-Af 5 L, BUN/Creatinine Ratio 13.1, Glucose 107 H, Calcium 8.0 L, Total Bilirubin 0.50, AST 152 H, ALT 57 H, Alkaline Phosphatase 120 H, Troponin I High Sens 38, Total Protein 7.1, Albumin 2.7 L, Globulin 4.4 H, Albumin/Globulin Ratio 0.6 L 05/02/21 13:45: Ethyl Alcohol < 3.0 05/02/21 13:45: Salicylates 6.6, Acetaminophen 7.9 L 05/02/21 13:45: Total Creatine Kinase 5425 H 05/02/21 13:52: POC Glucose 71 05/02/21 14:20: Urine Color Leilani, Urine Clarity Sl. Cloudy, Urine pH 5.0, Ur Specific [place] 1.025, Urine Protein 30 H, Urine Glucose (UA) Normal, Urine Ketones 5 H, Urine Occult Blood 150 H, Urine Nitrite Negative, Urine Bilirubin 1 H, Urine Urobilinogen Normal, Ur Leukocyte Esterase 25 H, Urine RBC 10-25 SEEN, Urine WBC 0-5 SEEN, Ur Squamous Epith Cells 0-5 SEEN, Urine Bacteria 1+, Urine Mucus 0 SEEN 05/02/21 14:20: Urine Opiates Screen POSITIVE H, Urine Methadone Screen NEGATIVE, Ur Barbiturates Screen NEGATIVE, Ur Phencyclidine Scrn NEGATIVE, Ur Amphetamines Screen NEGATIVE, U Methamphetamin-MDMA NEGATIVE, U Benzodiazepines Scrn NEGATIVE, Urine Cocaine Screen NEGATIVE, U Cannabinoids Screen POSITIVE H, Ur Drug Screen Comment 05/02/21 14:20: Urine Osmolality 368, Ur Random Sodium 9, Urine Creatinine 227.00 05/02/21 14:30: Lactic Acid 2.4 H* 05/02/21 15:31: Sodium Cancelled, Potassium Cancelled, Chloride Cancelled, Carbon Dioxide Cancelled, Anion Gap Cancelled, BUN Cancelled, Creatinine Cancelled, Est GFR (MDRD) Af Amer Cancelled, Est GFR (MDRD) Non-Af Cancelled, BUN/Creatinine Ratio Cancelled, Glucose Cancelled, Calcium Cancelled 05/02/21 17:45: Acetaminophen 10.7 05/02/21 18:10: POC Glucose 69 L 05/02/21 22:05: Sodium 129 L, Potassium 4.2, Chloride 100, Carbon Dioxide 18.0 L, Anion Gap 11, BUN 103 H*, Creatinine 7.43 H*, Estim Creat Clear Calc 7.25, Est GFR (MDRD) Af Amer 7 L, Est GFR (MDRD) Non-Af 6 L, BUN/Creatinine Ratio 13.9, Glucose 107 H, Calcium 6.1 L* 05/03/21 00:25: POC Glucose 107 05/03/21 04:45: WBC 11.2 H, RBC 4.20, Hgb 12.1, Hct 36.6 L, MCV 87.1 D, MCH 28.8, MCHC 33.1 D, RDW Std Deviation 55.1 H, RDW Coeff of Aleksandar 17.2 H, Plt Count 157, MPV 12.3 H, Immature Gran % (Auto) 0.900, Neut % (Auto) 85.0 H, Lymph % (Auto) 6.6 L, [place] % (Auto) 7.3, Eos % (Auto) 0.0, Baso % (Auto) 0.2, Absolute Neuts (auto) 9.5 H, Absolute Lymphs (auto) 0.74 L, Nucleated RBC % 0 05/03/21 04:45: Sodium 131 L, Potassium 3.7, Chloride 100, Carbon Dioxide 18.0 L, Anion Gap 13, BUN 103 H*, Creatinine 7.26 H, Estim Creat Clear Calc 7.42, Est GFR (MDRD) Af Amer 7 L, Est GFR (MDRD) Non-Af 6 L, BUN/Creatinine Ratio 14.2, Glucose 85, Calcium 7.0 L, Total Bilirubin 0.30, AST 180 H, ALT 57 H, Alkaline Phosphatase 89, Total Protein 5.0 L, Albumin 1.8 L, Globulin 3.2, Albumin/Globulin Ratio 0.6 L 05/03/21 12:18: POC Glucose 129 H Micro: Microbiology 05/02/21 14:00 Nasal Secretion SARS-CoV-2 Antigen (Rapid) - Final ABG Data ABG results: ABG 05/02/21 05/02/21 14:12 23:03 Specimen Type ART ART Sample Site L Brach L Radial pH 7.22 L 7.18 L* Bicarbonate Actual 19.8 L 17.9 L Total CO2 21 19 Base Excess -8 L -11 L O2 Saturation 100 H 76 L O2 % 100 ABG pCO2 48.5 H 48.3 H ABG pO2 201 H 51 L Simon Test Positive N/A O2 Delivery Device NRB Cannula Liter Flow 2.0 Crit Call To/Read Back Yes Radiography Diagnostic Testing: Radiology Impression Chest X-Ray 05/02/21 14:35 IMPRESSION: Hyperinflation. The lungs are clear. Electronically Signed: Bon Valentin MD at 14:48 EST , Renal Ultrasound 05/02/21 15:35 IMPRESSION: There are no acute findings. Electronically Signed: Chuck Ferrer MD at 19:06 EST , Chest X-Ray 05/02/21 17:12 IMPRESSION: There are no acute findings. Electronically Signed: Chuck Ferrer MD at 18:11 EST , Physical Exam Const alert Constitutional Narrative: Patient is somnolent, she is oriented as to place and self, she does not appear to be in any distress at this time General Appearance: cooperative, well kempt and well developed Orientation / Consciousness: awake, oriented to person, oriented to place and oriented to time HEENT normocephalic and head/scalp atraumatic HEENT Narrative: Dry mucous membranes Head and Scalp: normocephalic Eyes PERRL, EOMs intact bilaterally and conjunctivae normal Neck nuchal rigidity, supple, no JVD and thyroid normal General: trachea midline Resp normal respiratory effort, no retractions, no use of accessory muscles and clear to auscultation bilaterally Auscultation: Negative for rales, rhonchi or wheezes Cardio regular rate, regular rhythm, S1 normal heart sound, S2 normal heart sound, no murmurs, no rub and no gallops GI normal to inspection, nondistended, normoactive bowel sounds, soft to palpation, non-tender and non-distended Extremity no clubbing, cyanosis or edema Skin no rashes or lesions noted General Skin Exam: no breakdown Neuro CN's II-XII intact bilaterally, no focal motor deficits and no sensory deficits noted Neuro Narrative: Patient is oriented x2-person place Sensorium / Orientation: awake Speech: speech normal Psych Psych Narrative: Patient has flat affect, she is somewhat somnolent Assessment & Plan Assessment/Plan (1) Acute respiratory failure with hypoxia and hypercapnia: PLAN: 1. Acute hypercapnic respiratory failure-the exact etiology of which is unknown at this time, continue pulmonary care per critical care, patient has intermittently been placed on BiPAP as needed. #2 acute kidney injury-patient's creatinine was 0.75 in March of this year, the etiology of the patient's renal failure at this point is not known, nephrology will see the patient in consultation, continue fluids at this time #3 chronic obstructive pulmonary disease-continue aerosol treatments, pulmonary medicine is seeing patient #4 metabolic encephalopathy-probably secondary to renal failure, continue to monitor #5 atherosclerotic heart disease-this appears stable at this time, continue present medication #6 chronic depression-patient is currently on Lexapro-oral medications are being held at this time, this will be resumed when patient is not n.p.o. #7 essential hypertension-patient's blood pressure will be monitored at this time, it has been low, blood pressure medications are being held due to the patient being n.p.o. and due to her hypotension Charges/Coding Visit Charges Inpatient E&M: 93322 Subs Hosp L2
--- NOTE | 2021-05-03 13:16 | CON.PCM.RE_ITS ---
HPI Consult Data Date of Consult: 05/03/21 HPI Narrative HPI Narrative: JOHANA YBARRA, is a 61 F who presents to the hospital with altered mental status. Nephrology consulted for acute renal failure. She has normal creatinine at baseline as of 2 weeks ago. Apparently she was found to be sick by neighbors and EMS was called. She is currently somewhat drowsy. On BiPAP. When asked if she has any complaints she says she is fine. Urine output was low overnight, this morning somewhat better. BUN and creatinine are better. Other diagnoses include CO2 retention, LOVE, hyponatremia. Assessment and plan Acute renal failure. Creatinine was normal as of 2 weeks ago. Presented with altered mental status. Urine analysis shows some leukocytes, some RBC. Renal ultrasound without any acute findings. Possible volume depletion. Urine output is somewhat better. BUN and creatinine are better. Altered mental status could be related to retention of medications. Better today. She also had hypercapnia on admission and is currently on BiPAP. Hyponatremia. She was on thiazide prior to admission. She has prior history of hyponatremia. Sodium level was normal about 2 weeks ago. Repeat BMP about 4 PM today. Continue hypotonic fluids. Acidosis. Mostly nongap.? Diarrhea. Bicarbonate drip Will discuss with ICU attending [facility] Medical History Acute exacerbation of chronic low back pain Acute kidney injury LOVE (acute kidney injury) Atherosclerosis of [place] coronary artery of [place] heart without angina pecto ris Essential (primary) hypertension Flu vaccine need Fracture tibia/fibula Frequent falls Generalized anxiety disorder with panic attacks Hyperlipidemia Low back pain Lump of breast, left Myocardial infarct Nicotine dependence NSTEMI (non-ST elevated myocardial infarction) (10/2016) Obesity (BMI 30-39.9) Osteoarthritis Paroxysmal atrial fibrillation Pneumonia Smoker Syncope and collapse UTI (urinary tract infection) Vascular catheter fitting or adjustment Vision problems Home Medications aspirin 81 mg PO DAILY@0800 10/29/17 [History Last Taken 10/17/20] clopidogrel 75 mg tablet 75 mg PO DAILY #90 tab 08/17/20 [Rx Last Taken 10/17/20] hydrocodone-acetaminophen 1 tab PO TID 08/29/20 [History Last Taken 10/17/20] tizanidine 4 mg PO TID PRN #0 tab 09/01/20 [Rx Last Taken 10/17/20] escitalopram oxalate [Lexapro] 20 mg PO DAILY 10/17/20 [History Last Taken 10/17/20] gabapentin 800 mg tablet 800 mg PO .qid tab 11/06/20 [History Last Taken Unknown] Handicap Placard #1 ea 11/07/20 [Rx Last Taken Unknown] hydrochlorothiazide 12.5 mg tablet 12.5 mg PO DAILY #90 tab 03/04/21 [Rx Last Taken Unknown] lisinopril 20 mg tablet 20 mg PO BID #180 tab 03/28/21 [Rx Last Taken Unknown] metoprolol tartrate 50 mg tablet 50 mg PO BID #180 tab 03/28/21 [Rx Last Taken Unknown] rosuvastatin 40 mg tablet 40 mg PO DAILY #90 tab 03/28/21 [Rx Last Taken Unknown] leg brace #1 ea 04/11/21 [Rx Last Taken Unknown] metoprolol tartrate 25 mg tablet 25 mg PO BID tab 04/17/21 [History Last Taken Unknown] albuterol sulfate 90 mcg/actuation aerosol inhaler 2 puff INHALATION Q6H PRN #18 gm 04/30/21 [Rx Last Taken Unknown] buspirone 10 mg tablet 20 mg PO TID #540 tab 04/30/21 [Rx Last Taken Unknown] trazodone 100 mg tablet 200 mg PO QHS #60 tab 04/30/21 [Rx Last Taken Unknown] Allergy/AdvReac Type Severity Reaction Status Date / Time adhesive AdvReac Other Verified 04/17/21 14:43 baclofen AdvReac LETHARGY Verified 04/17/21 14:43 Family History Father Hypertension Bowel disease Heart disease Kidney disease Mother Hypertension Arthritis Bowel disease Colon cancer Heart disease High cholesterol Grandmother Arthritis Breast cancer Brain tumor Lung cancer Grandfather Myocardial infarction Surgical History H/O laminectomy History of colonoscopy History of coronary artery stent placement (11/17/16) History of left heart catheterization History of splenectomy History of total right hip replacement Hx of bone graft (2014) S/P ORIF (open reduction internal fixation) fracture Social History adopted: No number of children: 1 current occupational status: unemployed Smoking Status: Current every day smoker tobacco type: cigarettes Tobacco: How many years used: 35 alcohol intake: current alcohol intake frequency: holidays/special occasions only Alcohol type: hard liquor substance use type: former substance user Date of last use: 20 years ago and marijuana caffeine: Yes Type: carbonated beverages and coffee what type of physical activity do you participate in: other details: Physical Therapy frequency: 3-4 times per week seatbelt use: always do you feel safe at home: Yes ROS ROS Narrative Negative except above Physical Exam Narrative sleepy no obvious distress no pallor no icterus no JVD s1s2 no murmurs lungs clear abdomen soft no organomegaly no edema no cyanosis carter + Lab / Micro Data Result Diagrams: 05/03/21 04:45 05/03/21 04:45 Labs: Laboratory Results - last 24 hr 05/02/21 13:45: WBC 13.6 H, RBC 5.17, Hgb 15.0, Hct 42.3, MCV 81.8, MCH 29.0, MCHC 35.5, RDW Std Deviation 50.4 H, RDW Coeff of Aleksandar 16.9 H, Plt Count 193, MPV 12.5 H, Immature Gran % (Auto) 1.000 H, Neut % (Auto) 86.8 H, Lymph % (Auto) 6.8 L, [place] % (Auto) 5.2, Eos % (Auto) 0.1, Baso % (Auto) 0.1, Absolute Neuts (auto) 11.8 H, Absolute Lymphs (auto) 0.92, Nucleated RBC % 0 05/02/21 13:45: Sodium 119 L*, Potassium 4.5, Chloride 81 L, Carbon Dioxide 22.0, Anion Gap 16 H, BUN 121 H*, Creatinine 9.22 H*, Estim Creat Clear Calc 5.84, Est GFR (MDRD) Af Amer 6 L, Est GFR (MDRD) Non-Af 5 L, BUN/Creatinine Ratio 13.1, Glucose 107 H, Calcium 8.0 L, Total Bilirubin 0.50, AST 152 H, ALT 57 H, Alkaline Phosphatase 120 H, Troponin I High Sens 38, Total Protein 7.1, Albumin 2.7 L, Globulin 4.4 H, Albumin/Globulin Ratio 0.6 L 05/02/21 13:45: Ethyl Alcohol < 3.0 05/02/21 13:45: Salicylates 6.6, Acetaminophen 7.9 L 05/02/21 13:45: Total Creatine Kinase 5425 H 05/02/21 13:52: POC Glucose 71 05/02/21 14:20: Urine Color Leilani, Urine Clarity Sl. Cloudy, Urine pH 5.0, Ur Specific [place] 1.025, Urine Protein 30 H, Urine Glucose (UA) Normal, Urine Ketones 5 H, Urine Occult Blood 150 H, Urine Nitrite Negative, Urine Bilirubin 1 H, Urine Urobilinogen Normal, Ur Leukocyte Esterase 25 H, Urine RBC 10-25 SEEN, Urine WBC 0-5 SEEN, Ur Squamous Epith Cells 0-5 SEEN, Urine Bacteria 1+, Urine Mucus 0 SEEN 05/02/21 14:20: Urine Opiates Screen POSITIVE H, Urine Methadone Screen NEGATIVE, Ur Barbiturates Screen NEGATIVE, Ur Phencyclidine Scrn NEGATIVE, Ur Amphetamines Screen NEGATIVE, U Methamphetamin-MDMA NEGATIVE, U Benzodiazepines Scrn NEGATIVE, Urine Cocaine Screen NEGATIVE, U Cannabinoids Screen POSITIVE H, Ur Drug Screen Comment 05/02/21 14:20: Urine Osmolality 368, Ur Random Sodium 9, Urine Creatinine 227.00 05/02/21 14:30: Lactic Acid 2.4 H* 05/02/21 15:31: Sodium Cancelled, Potassium Cancelled, Chloride Cancelled, Carbon Dioxide Cancelled, Anion Gap Cancelled, BUN Cancelled, Creatinine Canc elled, Est GFR (MDRD) Af Amer Cancelled, Est GFR (MDRD) Non-Af Cancelled, BUN/Creatinine Ratio Cancelled, Glucose Cancelled, Calcium Cancelled 05/02/21 17:45: Acetaminophen 10.7 05/02/21 18:10: POC Glucose 69 L 05/02/21 22:05: Sodium 129 L, Potassium 4.2, Chloride 100, Carbon Dioxide 18.0 L , Anion Gap 11, BUN 103 H*, Creatinine 7.43 H*, Estim Creat Clear Calc 7.25, Est GFR (MDRD) Af Amer 7 L, Est GFR (MDRD) Non-Af 6 L, BUN/Creatinine Ratio 13.9, Glucose 107 H, Calcium 6.1 L* 05/03/21 00:25: POC Glucose 107 05/03/21 04:45: WBC 11.2 H, RBC 4.20, Hgb 12.1, Hct 36.6 L, MCV 87.1 D, MCH 28.8, MCHC 33.1 D, RDW Std Deviation 55.1 H, RDW Coeff of Aleksandar 17.2 H, Plt Count 157, MPV 12.3 H, Immature Gran % (Auto) 0.900, Neut % (Auto) 85.0 H, Lymph % (Auto) 6.6 L, [place] % (Auto) 7.3, Eos % (Auto) 0.0, Baso % (Auto) 0.2, Absolute Neuts (auto) 9.5 H, Absolute Lymphs (auto) 0.74 L, Nucleated RBC % 0 05/03/21 04:45: Sodium 131 L, Potassium 3.7, Chloride 100, Carbon Dioxide 18.0 L , Anion Gap 13, BUN 103 H*, Creatinine 7.26 H, Estim Creat Clear Calc 7.42, Est GFR (MDRD) Af Amer 7 L, Est GFR (MDRD) Non-Af 6 L, BUN/Creatinine Ratio 14.2, Glucose 85, Calcium 7.0 L, Total Bilirubin 0.30, AST 180 H, ALT 57 H, Alkaline Phosphatase 89, Total Protein 5.0 L, Albumin 1.8 L, Globulin 3.2, Albumin/Globulin Ratio 0.6 L 05/03/21 12:18: POC Glucose 129 H Micro: Microbiology 05/02/21 14:00 Nasal Secretion SARS-CoV-2 Antigen (Rapid) - Final ABG Data ABG results: ABG 05/02/21 05/02/21 14:12 23:03 Specimen Type ART ART Sample Site L Brach L Radial pH 7.22 L 7.18 L* Bicarbonate Actual 19.8 L 17.9 L Total CO2 21 19 Base Excess -8 L -11 L O2 Saturation 100 H 76 L O2 % 100 ABG pCO2 48.5 H 48.3 H ABG pO2 201 H 51 L Simon Test Positive N/A O2 Delivery Device NRB Cannula Liter Flow 2.0 Crit Call To/Read Back Yes Radiology Impression Chest X-Ray 05/02/21 14:35 IMPRESSION: Hyperinflation. The lungs are clear. Electronically Signed: Bon Valentin MD at 14:48 EST , Renal Ultrasound 05/02/21 15:35 IMPRESSION: There are no acute findings. Electronically Signed: Chuck Ferrer MD at 19:06 EST , Chest X-Ray 05/02/21 17:12 IMPRESSION: There are no acute findings. Electronically Signed: Chuck Ferrer MD at 18:11 EST ,
--- NOTE | 2021-05-03 13:42 | CHAPLAIN ---
Type of Pastoral Visit ___ Initial Visit ___ Follow-up Visit ___ On-call Visit ___ General Patient Visit ___ Spiritual Assessment ___ Family Conference ___ Bereavement ___ Rapid Response ___ Code Blue ___ Other (describe below) Pastoral Care Referral From ___ Patient ___ Family ___ Nurse ___ Physician ___ Principal Network Engineer ___ Blast Furnace Keeper Helper ___ Other (describe below) Sacrament/Intervention ___ Active listening ___ Anointing ___ Mu-Ism ___ Bereavement ___ Communion ___ Karen exploration ___ ___ Life review ___ Prayer ___ Reconciliation ___ Sacrament of Sick ___ Supportive presence ___ Wedding ___ Other (describe below) Pastoral Comments patient is on bi-pap and has had some episodes of confusion and hallucinations per RN; visit postponed until more appropriate time
--- NOTE | 2021-05-03 15:20 | CASEMGMT ---
MAMADOU CM called son Fredy for initial transition planning/care coordination assessment as patient is currently on continuous Bipap. MAMADOU DA SILVA introduced self and role at [facility]. Son willing to participate in assessment and is able to answer all questions appropriately. Care providers, pharmacy, and demographics verified. Son wishes for patient to discharge home with him if able, but willing for patient to go to SNF if needed. Son states he has no further needs or concerns at this time. CM to follow for discharge planning needs that may arise. PCP: Иван Specialists: Amari, pain: Kimi, buoy tender; Pita, ortho; Avery, right of way man Preferred Pharmacy: [facility] Insurance: [employer] Prescription Benefit: yes Living Will/HPOA: son not sure LNOK: son, sister, mother Living Arrangements: Per son patient lives alone in a multi level home with 8 steps and railing to enter the home. Patient is normally independent but per son has been neglecting herself. Son states patient has history of alcohol abuse. Transportation: self/neighbor DME/HHC: Per son patient had cane, walker, and shower chair. Patient was on HD at one time as well. Disposition Plan: TBD by course of treatment and progress with therapy. Cherelle SUH, RN, CM
[2021-05-03] MEDS: Menthol/Lanolin/Calamine/Znox 113 GM Tube 1 APPLIC TOPICAL ×2 (15:22→21:33)
[2021-05-03 18:00] LABS: Anion Gap 11 (5-15); BUN 97 mg/dL (7-18); BUN/Creat Ratio 14.2 RATIO (10-20); Calcium,Total 6.9 mg/dL (8.5-10.1); Chloride 99 mmol/L (98-107); Creatinine, Serum 6.81 mg/dL (0.55-1.02); EST Glomerular Filtration Rate 7 mL/min (>60); Est Glom Filt Rate - Afr Amer 8 mL/min (>60); Estimated Creatinine Clearance 7.91 ml/min; Glucose 149 mg/dL (74-106); Potassium 3.5 mmol/L (3.5-5.1); Sodium Level 129 mmol/L (136-145)
[2021-05-03 18:26] LABS: Bedside Glucose 137 mg/dL (70-110)
[2021-05-03 23:50] LABS: Bedside Glucose 123 mg/dL (70-110)
[2021-05-04] VITALS (34 sets, daily range): BP systolic 79–133; BP diastolic 55–98; PULSE 87–123; RESP 14–26; TEMP 36.2–36.4; O2SAT 87–99
[2021-05-04 03:48] LABS: Anion Gap 13 (5-15); BUN 94 mg/dL (7-18); BUN/Creat Ratio 15.9 RATIO (10-20); Calcium,Total 6.9 mg/dL (8.5-10.1); Chloride 96 mmol/L (98-107); EST Glomerular Filtration Rate 8 mL/min (>60); Est Glom Filt Rate - Afr Amer 9 mL/min (>60); Estimated Creatinine Clearance 9.12 ml/min; Glucose 142 mg/dL (74-106); Potassium 3.2 mmol/L (3.5-5.1); Sodium Level 129 mmol/L (136-145)
[2021-05-04 03:51] LABS: Absolute Lymphocyte Count 0.66 X10^3/uL (0.83-4.51); Absolute Neutrophil Count 7.7 X10^3/uL (2.0-7.7); Basophil# 0.01 X10^3/uL; Basophil% 0.1 % (0-1); Eosinophil# 0.01 X10^3/uL; Eosinophils% 0.1 % (0-5); Hematocrit 34.3 % (37-47); Hemoglobin 11.5 g/dL (12.0-15.0); Lymphocyte # 0.66 X10^3/ul (0.83-4.51); Lymphocyte % 7.2 % (19-41); Mean Corp Hgb Conc 33.5 g/dL (32-36); Mean Corpuscular Hgb 28.2 pg (27.0-32.0); Mean Corpuscular Volume 84.1 fL (81-99); Monocyte# 0.75 X10^3/uL; Monocyte% 8.2 % (0-10); NRBC Flagged by Analyzer 0 % (0-5); Neutrophil # 7.65 X10^3/uL (2.7-7.7); Neutrophil % 83.5 % (47-70); Platelet Count 165 K/mm3 (150-450); RBC Distribution Width CV 17.3 % (11.6-14.6); RBC Distribution Width SD 53.7 fl (35.1-43.9); Red Blood Count 4.08 M/mm3 (4.2-5.4); White Blood Count 9.2 K/mm3 (4.4-11.0)
[2021-05-04] MEDS: Potassium Chloride 10mEq/100mL 10 MEQ/100 ML IV.SOLN. 100 MEQ IV BOLUS ×4 (06:11→10:42)
[2021-05-04] MEDS: Heparin Injection (Vial) 5,000 UNIT/ML VIAL 5000 UNIT SC ×3 (06:11→21:47)
[2021-05-04] MEDS: Insulin Lispro 100 UNIT/ML INSULN.PEN SC ×3 (06:14→16:57)
--- NOTE | 2021-05-04 06:54 | PN.CC_ITS ---
Assessment & Plan Assessment/Plan (1) Acute kidney injury: (2) Acute respiratory failure with hypoxia and hypercapnia: (3) Hypotension: (4) COPD (chronic obstructive pulmonary disease): (5) Paroxysmal atrial fibrillation: (6) Nicotine dependence: QUALIFIERS: Nicotine product type: unspecified Substance use status: unspecified nicotine-induced disorder Qualified Code(s): F17.209 - Nicotine dependence, unspecified, with unspecified nicotine-induced disorders PLAN: RECOMMENDATIONS: 1. Wean supplemental oxygen as tolerated. BiPAP rescue if needed ABG as needed 2. Agree with empiric antibiotics and bronchodilators 3. Defer to nephrology, likely okay to transition to normal saline 4. Aggressive blood sugar control 5. Hold antihypertensives, gabapentin and tizanidine 6. No indication for NAC therapy 7. Continue to monitor in intensive care given marginal blood pressures and confusion IMPRESSIONS: 1. Acute hypercarbic respiratory failure of unclear etiology Patient was noted to have an elevated PaO2 with CO2 retention. Patient does have a history of COPD, some may have lost respiratory drive. Patient appears to be okay at this time. Will use BiPAP with sleeping. Could obtain an ABG if patient becomes unresponsive to evaluate. Wean supplemental oxygen to keep saturations between 90 and 94%. Reasonable to initiate bronchodilators. No significant wheezing noted on exam. Likely okay to hold on steroids for now. Patient does have increased respiratory demand secondary to nonanion gap metabolic acidosis associated with problem #2. 2. Acute on chronic kidney disease stage III/hypovolemic hyponatremia Clinical suspicion for dehydration and prerenal etiology leading to acute kidney injury. Patient has no indication for acute renal replacement therapy. Patient's bicarbonate is up to 20. Likely okay to transition to normal saline, but defer to nephrology. Nephrology is consulted. Renal ultrasound unremarkable. Urine appears to be improving with volume resuscitation. Hold hydrochlorothiazide. Patient may have an element of retained/slow metabolism of some drugs including gabapentin. 3. Elevated liver enzymes/acute metabolic encephalopathy Unclear etiology. Patient may have an element of chronic Tylenol toxicity. However, Tylenol level is only minimally elevated. No indication for NAC therapy. These appear to be relatively stable. Will monitor clinically. 4. Chronic diastolic CHF/paroxysmal A. fib Patient currently in normal sinus rhythm. Okay to continue with Plavix, statin and aspirin. Would hold metoprolol as patient has had some hypotension and will have possible difficulty clearing other medications. Hold on echocardiogram for now. Troponins have been unremarkable. Patient has been using BiPAP, but only requires room air. 5. Obesity/chronic pain syndrome/type 2 diabetes mellitus/debility Complicates care, management, recovery and prognosis. We will need to watch blood sugars closely. Dextrose boluses as necessary. Hold all pain medications. Will likely need to work with PT/OT for discharge planning. Subjective Subjective Patient did okay overnight. Patient remains very confused, but has tolerated BiPAP well with sleep. Patient is not reporting any pain, but still tends to pick at the air like she is hallucinating. No nausea reported. Nursing is not reporting any vomiting. Objective Data Objective Data Vital Signs: Vital Signs Temp Pulse Resp BP Pulse Ox 36.2 C L 96 19 H 133/74 H 93 05/04/21 00:00 05/04/21 06:00 05/04/21 06:00 05/04/21 06:00 05/04/21 06:00 Oxygen Flow Rate (L/min) 5 Oxygen Delivery Method Bi-pap Weight: 97.5 kg Body Mass Index (BMI) 34.2 Intake & Output: Intake and Output for Last 24 Hours 05/02/21 05/03/21 05/04/21 23:59 23:59 23:59 Intake Total 2883 / 2883 4143.33 / 4143.33 1080 / 1080 Output Total 250 / 250 550 / 875 700 / 700 Balance 2633 / 2633 3593.33 / 3268.33 380 / 380 Lab / Micro Data Result Diagrams: 05/04/21 03:30 05/04/21 03:30 Labs: Laboratory Results - last 24 hr 05/03/21 12:18: POC Glucose 129 H 05/03/21 17:18: Sodium 129 L, Potassium 3.5, Chloride 99, Carbon Dioxide 19.0 L, Anion Gap 11, BUN 97 H, Creatinine 6.81 H, Estim Creat Clear Calc 7.91, Est GFR (MDRD) Af Amer 8 L, Est GFR (MDRD) Non-Af 7 L, BUN/Creatinine Ratio 14.2, Glucose 149 H, Calcium 6.9 L 05/03/21 18:19: POC Glucose 137 H 05/03/21 23:42: POC Glucose 123 H 05/04/21 03:30: WBC 9.2, RBC 4.08 L, Hgb 11.5 L, Hct 34.3 L, MCV 84.1, MCH 28.2, MCHC 33.5, RDW Std Deviation 53.7 H, RDW Coeff of Aleksandar 17.3 H, Plt Count 165, MPV 11.0, Immature Gran % (Auto) 0.900, Neut % (Auto) 83.5 H, Lymph % (Auto) 7.2 L, [place] % (Auto) 8.2, Eos % (Auto) 0.1, Baso % (Auto) 0.1, Absolute Neuts (auto) 7.7, Absolute Lymphs (auto) 0.66 L, Nucleated RBC % 0 05/04/21 03:30: Sodium 129 L, Potassium 3.2 L, Chloride 96 L, Carbon Dioxide 20.0 L, Anion Gap 13, BUN 94 H, Creatinine 5.90 H, Estim Creat Clear Calc 9.12, Est GFR (MDRD) Af Amer 9 L, Est GFR (MDRD) Non-Af 8 L, BUN/Creatinine Ratio 15.9, Glucose 142 H, Calcium 6.9 L Micro: Microbiology 05/02/21 14:00 Nasal Secretion SARS-CoV-2 Antigen (Rapid) - Final Physical Exam Narrative Hyperpigmented. Appears older than stated age. On BiPAP Const alert and no apparent distress Orientation / Consciousness: oriented to person HEENT normocephalic, head/scalp atraumatic and hearing grossly normal bilaterally HEENT Narrative: No significant hematoma noted at central line attempts Eyes PERRL, EOMs intact bilaterally and conjunctivae normal Neck no lymphadenopathy, supple and no JVD Chest inspection of chest normal Chest: symmetrical chest wall rise; Negative for crepitus Resp normal respiratory effort, no retractions, no use of accessory muscles and clear to auscultation bilaterally Auscultation: Negative for rales, rhonchi or wheezes Cardio regular rhythm, no murmurs, no rub and no gallops Rate: tachycardic GI normal to inspection, nondistended, normoactive bowel sounds, soft to palpation and non-tender Extremity normal to inspection, full ROM and no clubbing, cyanosis or edema Skin no rashes or lesions noted, no wounds and skin turgor normal Neuro CN's II-XII intact bilaterally Psych Appearance: bizarre Activity / Motor Behavior: fidgetting; Negative for appropriate eye contact Charges/Coding Visit Charges Inpatient E&M: 68353 Subs Hosp L3
[2021-05-04] MEDS: Ipratropium/Albuterol Sulfate 3 ML AMPUL.NEB INHALATION ×4 (07:19→19:08)
[2021-05-04] MEDS: Menthol/Lanolin/Calamine/Znox 113 GM Tube 1 APPLIC TOPICAL ×2 (10:42→21:46)
[2021-05-04 11:00] LABS: Bedside Glucose 150 mg/dL (70-110)
[2021-05-04] MEDS: 0.9% Normal Saline 1,000 ML 75 ML IV (11:12)
[2021-05-04 12:30] LABS: Bedside Glucose 151 mg/dL (70-110)
--- NOTE | 2021-05-04 13:31 | EKG12_ITS ---
Test Reason : RHYTHM CHANGE Blood Pressure : / mmHG Vent. Rate : 107 BPM Atrial Rate : 105 BPM P-R Int : 120 ms QRS Dur : 090 ms QT Int : 400 ms P-R-T Axes : 058 008 047 degrees QTc Int : 534 ms Sinus tachycardia Low voltage QRS Nonspecific ST and T wave abnormality Prolonged QT Abnormal ECG When compared with ECG of 04-MAY-2021 13:31, MANUAL COMPARISON REQUIRED, DATA IS UNCONFIRMED Confirmed by LANA MICHAEL, NABOR ([id number]), book or script editor DEREK RAY ([id number]) on 05/07/2021 11:10:39 AM Referred By: Confirmed By:NABOR SCHWARTZ MD
--- NOTE | 2021-05-04 13:32 | EKG12_ITS ---
Test Reason : RHYTHM CHANGE Blood Pressure : / mmHG Vent. Rate : 108 BPM Atrial Rate : 105 BPM P-R Int : 126 ms QRS Dur : 124 ms QT Int : 396 ms P-R-T Axes : 064 -09 038 degrees QTc Int : 530 ms Sinus rhythm with PVC's Right bundle branch block Abnormal ECG When compared with ECG of 02-MAY-2021 14:16, MANUAL COMPARISON REQUIRED, DATA IS UNCONFIRMED Confirmed by LANA MICHAEL, NABOR ([id number]), makeup editor DEREK RAY ([id number]) on 05/07/2021 11:10:24 AM Referred By: Confirmed By:NABOR SCHWARTZ MD
--- NOTE | 2021-05-04 14:16 | PN.HOSP_ITS ---
Subjective Subjective Patient was seen and examined today in ICU, she remains confused, she is on BiPAP currently, nurses are trying to use BiPAP intermittently when she appears confused or is having muscle twitches. Patient's potassium was 3.2 today, sodium was 129, and her creatinine was 5.9. Objective Data Objective Data Vital Signs: Vital Signs Temp Pulse Resp BP Pulse Ox 97.3 F L 106 H 22 H 108/68 87 05/04/21 12:00 05/04/21 12:00 05/04/21 12:00 05/04/21 12:00 05/04/21 12:00 Oxygen Flow Rate (L/min) 2 Oxygen Delivery Method Nasal Cannula Weight: 97.5 kg Body Mass Index (BMI) 34.2 Intake & Output: Intake and Output for Last 24 Hours 05/02/21 05/03/21 05/04/21 23:59 23:59 23:59 Intake Total 2883 / 2883 4143.33 / 4143.33 2480 / 2480 Output Total 250 / 250 550 / 875 1100 / 1100 Balance 2633 / 2633 3593.33 / 3268.33 1380 / 1380 Lab / Micro Data Result Diagrams: 05/04/21 03:30 05/04/21 03:30 Labs: Laboratory Results - last 24 hr 05/03/21 17:18: Sodium 129 L, Potassium 3.5, Chloride 99, Carbon Dioxide 19.0 L, Anion Gap 11, BUN 97 H, Creatinine 6.81 H, Estim Creat Clear Calc 7.91, Est GFR (MDRD) Af Amer 8 L, Est GFR (MDRD) Non-Af 7 L, BUN/Creatinine Ratio 14.2, Glucose 149 H, Calcium 6.9 L 05/03/21 18:19: POC Glucose 137 H 05/03/21 23:42: POC Glucose 123 H 05/04/21 03:30: WBC 9.2, RBC 4.08 L, Hgb 11.5 L, Hct 34.3 L, MCV 84.1, MCH 28.2, MCHC 33.5, RDW Std Deviation 53.7 H, RDW Coeff of Aleksandar 17.3 H, Plt Count 165, MPV 11.0, Immature Gran % (Auto) 0.900, Neut % (Auto) 83.5 H, Lymph % (Auto) 7.2 L, [place] % (Auto) 8.2, Eos % (Auto) 0.1, Baso % (Auto) 0.1, Absolute Neuts (auto) 7.7, Absolute Lymphs (auto) 0.66 L, Nucleated RBC % 0 05/04/21 03:30: Sodium 129 L, Potassium 3.2 L, Chloride 96 L, Carbon Dioxide 20. 0 L, Anion Gap 13, BUN 94 H, Creatinine 5.90 H, Estim Creat Clear Calc 9.12, Est GFR (MDRD) Af Amer 9 L, Est GFR (MDRD) Non-Af 8 L, BUN/Creatinine Ratio 15.9, Glucose 142 H, Calcium 6.9 L 05/04/21 06:14: POC Glucose 150 H 05/04/21 12:24: POC Glucose 151 H Micro: Microbiology 05/02/21 14:00 Nasal Secretion SARS-CoV-2 Antigen (Rapid) - Final Physical Exam Const Constitutional Narrative: Patient appears older than her stated age, she is confused at this time and somnolent General Appearance: cooperative, well kempt and well developed Orientation / Consciousness: awake, oriented to person, oriented to place and oriented to time HEENT normocephalic, head/scalp atraumatic and moist oral mucous membranes Head and Scalp: normocephalic Eyes PERRL, EOMs intact bilaterally and conjunctivae normal Neck nuchal rigidity, supple, no JVD and thyroid normal General: trachea midline Resp normal respiratory effort, no retractions, no use of accessory muscles and clear to auscultation bilaterally Auscultation: Negative for rales, rhonchi or wheezes Cardio regular rate, regular rhythm, S1 normal heart sound, S2 normal heart sound, no murmurs, no rub, no gallops and no clicks GI normal to inspection, nondistended, normoactive bowel sounds, soft to palpation, non-tender and non-distended Extremity normal to inspection and no clubbing, cyanosis or edema Skin no rashes or lesions noted, no wounds and skin turgor normal General Skin Exam: no breakdown Neuro CN's II-XII intact bilaterally and no focal motor deficits Neuro Narrative: Patient is lethargic and confused Psych Psych Narrative: Patient is lethargic and confused Assessment & Plan Assessment/Plan (1) Acute kidney injury: (2) Acute respiratory failure with hypoxia and hypercapnia: PLAN: 1. Acute hypercapnic respiratory failure-the exact etiology of which is unknown at this time, continue pulmonary care per critical care, patient has intermittently been placed on BiPAP as needed. #2 acute kidney injury-patient's creatinine was 0.75 in March of this year, the etiology of the patient's renal failure at this point is not known, nephrology will see the patient in consultation, continue fluids at this time, patient's creatinine today is improving #3 chronic obstructive pulmonary disease-continue aerosol treatments, pulmonary medicine is seeing patient #4 metabolic encephalopathy-probably secondary to renal failure, continue to monitor #5 atherosclerotic heart disease-this appears stable at this time, continue present medication #6 chronic depression-patient is currently on Lexapro-oral medications are being held at this time, this will be resumed when patient is not n.p.o. #7 essential hypertension-patient's blood pressure will be monitored at this time, it has been low, blood pressure medications are being held due to the patient being n.p.o. and due to her hypotension Empiric antibiotics will be continued for now, blood culture results at 48 hours will not be until 6 PM tonight. Charges/Coding Visit Charges Inpatient E&M: 81826 Subs Hosp L2
[2021-05-04 17:01] LABS: Bedside Glucose 154 mg/dL (70-110)
[2021-05-04] MEDS: 0.9% Normal Saline 1,000 ML 150 ML IV (20:08)
[2021-05-04 21:41] LABS: Bedside Glucose 96 mg/dL (70-110)
[2021-05-04] MEDS: 0.9% Saline Lock 10 ML Syringe IV (21:46)
[2021-05-05] VITALS (27 sets, daily range): BP systolic 91–166; BP diastolic 52–91; PULSE 94–122; RESP 14–24; TEMP 36.1–37; O2SAT 85–100
[2021-05-05] MEDS: 0.9% Normal Saline 1,000 ML 150 ML IV ×2 (02:48→09:53)
[2021-05-05 03:43] LABS: Absolute Lymphocyte Count 0.65 X10^3/uL (0.83-4.51); Absolute Neutrophil Count 7.3 X10^3/uL (2.0-7.7); Basophil# 0.01 X10^3/uL; Basophil% 0.1 % (0-1); Eosinophil# 0.02 X10^3/uL; Eosinophils% 0.2 % (0-5); Hematocrit 33.4 % (37-47); Hemoglobin 11.7 g/dL (12.0-15.0); Lymphocyte # 0.65 X10^3/ul (0.83-4.51); Lymphocyte % 7.3 % (19-41); Mean Corpuscular Volume 82.7 fL (81-99); Mean Platelet Vol. 11.2 fl (6.2-12.0); Monocyte# 0.73 X10^3/uL; Monocyte% 8.2 % (0-10); NRBC Flagged by Analyzer 0 % (0-5); Neutrophil # 7.32 X10^3/uL (2.7-7.7); Neutrophil % 82.6 % (47-70); Platelet Count 183 K/mm3 (150-450); RBC Distribution Width CV 17.2 % (11.6-14.6); RBC Distribution Width SD 52.2 fl (35.1-43.9); Red Blood Count 4.04 M/mm3 (4.2-5.4); White Blood Count 8.9 K/mm3 (4.4-11.0)
[2021-05-05 04:12] LABS: ALB/GLOB Ratio 0.5 RATIO (0.9-2.4); AST(SGOT) 66 U/L (15-37); Alanine Aminotransfer ALT/SGPT 61 U/L (13-56); Albumin, Serum 1.6 g/dL (3.2-5.0); Alkaline Phosphatase 92 U/L (45-117); Anion Gap 11 (5-15); BUN 82 mg/dL (7-18); BUN/Creat Ratio 17.9 RATIO (10-20); Calcium,Total 6.7 mg/dL (8.5-10.1); Chloride 99 mmol/L (98-107); Creatinine, Serum 4.58 mg/dL (0.55-1.02); EST Glomerular Filtration Rate 10 mL/min (>60); Est Glom Filt Rate - Afr Amer 13 mL/min (>60); Estimated Creatinine Clearance 11.75 ml/min; Globulin 3.3 g/dL (2.2-4.2); Glucose 88 mg/dL (74-106); Potassium 3.5 mmol/L (3.5-5.1); Protein, Total 4.9 g/dL (6.4-8.2); Sodium Level 130 mmol/L (136-145)
[2021-05-05] MEDS: Heparin Injection (Vial) 5,000 UNIT/ML VIAL 5000 UNIT SC ×3 (06:34→21:30)
--- NOTE | 2021-05-05 06:35 | PCM.PN.INT ---
Assessment & Plan Assessment/Plan (1) Acute kidney injury: (2) Acute respiratory failure with hypoxia and hypercapnia: (3) Hypotension: (4) COPD (chronic obstructive pulmonary disease): (5) Paroxysmal atrial fibrillation: (6) Nicotine dependence: QUALIFIERS: Nicotine product type: unspecified Substance use status: unspecified nicotine-induced disorder Qualified Code(s): F17.209 - Nicotine dependence, unspecified, with unspecified nicotine-induced disorders PLAN: RECOMMENDATIONS: 1. Wean supplemental oxygen as tolerated. BiPAP rescue if needed ABG as needed 2. Discontinue empiric antibiotics. Continue bronchodilators 3. Doubt hemodialysis. Continue normal saline resuscitation. 4. Aggressive blood sugar control 5. Hold antihypertensives, gabapentin and tizanidine 6. Attempt being off BiPAP during the day and monitor mental status 7. Okay to transfer from the intensive care unit 8. Hemodynamically stable on minimal oxygen requirements. Will sign off from a pulmonary/critical care perspective IMPRESSIONS: 1. Acute hypercarbic respiratory failure of unclear etiology Patient was noted to have an elevated PaO2 with CO2 retention. Patient does have a history of COPD, some may have lost respiratory drive. Patient appears to be okay at this time. Will use BiPAP with sleeping. Could obtain an ABG if patient becomes unresponsive to evaluate. Wean supplemental oxygen to keep saturations between 90 and 94%. Reasonable to continue bronchodilators. No significant wheezing noted on exam. Likely okay to hold on steroids for now. Patient's respiratory status continues to improve with improved renal function. 2. Acute on chronic kidney disease stage III/hypovolemic hyponatremia improving. Clinical suspicion for dehydration and prerenal etiology leading to acute kidney injury. Patient has no indication for acute renal replacement therapy. Patient's bicarbonate is up to 20. Likely okay to transition to normal saline, but defer to nephrology. Nephrology is consulted. Renal ultrasound unremarkable. Urine output appears to be improving with volume resuscitation. Hold hydrochlorothiazide. Patient may have an element of retained/slow metabolism of some drugs including gabapentin. 3. Elevated liver enzymes/acute metabolic encephalopathy Unclear etiology. Patient may have an element of chronic Tylenol toxicity. However, Tylenol level is only minimally elevated. No indication for NAC therapy. These appear to be relatively stable. Will monitor clinically. 4. Chronic diastolic CHF/paroxysmal A. fib Patient currently in normal sinus rhythm. Okay to continue with Plavix, statin and aspirin. Would hold metoprolol as patient has had some hypotension and will have possible difficulty clearing other medications. Hold on echocardiogram for now. Troponins have been unremarkable. Patient has been using BiPAP, but only requires room air. 5. Obesity/chronic pain syndrome/type 2 diabetes mellitus/debility Complicates care, management, recovery and prognosis. We will need to watch blood sugars closely. Dextrose boluses as necessary. Hold all pain medications. Will likely need to work with PT/OT for discharge planning. Subjective Subjective Patient did okay overnight. No acute issues were reported. Patient continues to have intermittent tremors, but no seizure activity has been noted. Patient has been tolerating BiPAP well. Good urine output noted. Patient is reporting only generalized pain. Objective Data Objective Data Vital Signs: Vital Signs Temp Pulse Resp BP Pulse Ox 36.6 C 97 24 H 117/70 100 05/05/21 04:00 05/05/21 04:01 05/05/21 04:01 05/05/21 04:00 05/05/21 04:01 Oxygen Flow Rate (L/min) 2 Oxygen Delivery Method Bi-pap Weight: 98.1 kg Body Mass Index (BMI) 34.2 Intake & Output: Intake and Output for Last 24 Hours 05/03/21 05/04/21 05/05/21 23:59 23:59 23:59 Intake Total 4143.33 / 4143.33 4605.0 / 5185.0 1050 / 1050 Output Total 550 / 875 1400 / 1900 1050 / 1050 Balance 3593.33 / 3268.33 3205.0 / 3285.0 0 / 0 Lab / Micro Data Result Diagrams: 05/05/21 03:15 05/05/21 03:15 Labs: Laboratory Results - last 24 hr 05/04/21 06:14: POC Glucose 150 H 05/04/21 12:24: POC Glucose 151 H 05/04/21 16:56: POC Glucose 154 H 05/04/21 21:36: POC Glucose 96 05/05/21 03:15: WBC 8.9, RBC 4.04 L, Hgb 11.7 L, Hct 33.4 L, MCV 82.7, MCH 29.0, MCHC 35.0, RDW Std Deviation 52.2 H, RDW Coeff of Aleksandar 17.2 H, Plt Count 183, MPV 11.2, Immature Gran % (Auto) 1.600 H, Neut % (Auto) 82.6 H, Lymph % (Auto) 7.3 L, [place] % (Auto) 8.2, Eos % (Auto) 0.2, Baso % (Auto) 0.1, Absolute Neuts (auto) 7.3, Absolute Lymphs (auto) 0.65 L, Nucleated RBC % 0 05/05/21 03:15: Sodium 130 L, Potassium 3.5, Chloride 99, Carbon Dioxide 20.0 L, Anion Gap 11, BUN 82 H, Creatinine 4.58 H, Estim Creat Clear Calc 11.75, Est GFR (MDRD) Af Amer 13 L, Est GFR (MDRD) Non-Af 10 L, BUN/Creatinine Ratio 17.9, Glucose 88, Calcium 6.7 L, Total Bilirubin 0.30, AST 66 H, ALT 61 H, Alkaline Phosphatase 92, Total Protein 4.9 L, Albumin 1.6 L, Globulin 3.3, Albumin/Globulin Ratio 0.5 L Micro: Microbiology 05/02/21 14:00 Nasal Secretion SARS-CoV-2 Antigen (Rapid) - Final Physical Exam Narrative Hyperpigmented. Appears older than stated age. On BiPAP Const alert and no apparent distress Orientation / Consciousness: oriented to person HEENT normocephalic, head/scalp atraumatic and hearing grossly normal bilaterally HEENT Narrative: No significant hematoma noted Eyes PERRL, EOMs intact bilaterally and conjunctivae normal Neck no lymphadenopathy, supple and no JVD Chest inspection of chest normal Chest: symmetrical chest wall rise; Negative for crepitus Resp normal respiratory effort, no retractions, no use of accessory muscles and clear to auscultation bilaterally Auscultation: Negative for rales, rhonchi or wheezes Cardio regular rhythm, no murmurs, no rub and no gallops Rate: tachycardic GI normal to inspection, nondistended, normoactive bowel sounds, soft to palpation and non-tender Extremity normal to inspection, full ROM and no clubbing, cyanosis or edema Skin no rashes or lesions noted, no wounds and skin turgor normal Neuro CN's II-XII intact bilaterally Psych Appearance: bizarre Activity / Motor Behavior: fidgetting; Negative for appropriate eye contact Charges/Coding Visit Charges Inpatient E&M: 09269 Subs Hosp L3
[2021-05-05 06:45] LABS: Bedside Glucose 101 mg/dL (70-110)
[2021-05-05] MEDS: Ipratropium/Albuterol Sulfate 3 ML AMPUL.NEB INHALATION ×5 (07:18→23:55)
[2021-05-05] MEDS: Menthol/Lanolin/Calamine/Znox 113 GM Tube 1 APPLIC TOPICAL ×2 (09:51→21:22)
[2021-05-05 10:01] LABS: Bedside Glucose 109 mg/dL (70-110)
--- NOTE | 2021-05-05 10:31 | PN.HOSP_ITS ---
Subjective Subjective Patient was seen and examined today, she did not appear in any distress, patient seemed somewhat confused but was alert enough to answer simple questions. I talked briefly with critical care about her care, they stated that the patient was stable enough to be transferred to PCU. Critical care had questioned that some of the patient's lethargy might be due to her gabapentin that she takes at home. Patient has been off most of her medications since she came in the hospital. I will review these medications and restart some of her medications. Objective Data Objective Data Vital Signs: Vital Signs Temp Pulse Resp BP Pulse Ox 97.0 F L 105 H 20 H 166/82 H 91 05/05/21 08:00 05/05/21 10:00 05/05/21 10:00 05/05/21 10:00 05/05/21 10:00 Oxygen Flow Rate (L/min) 2 Oxygen Delivery Method Bi-pap Weight: 98.1 kg Body Mass Index (BMI) 34.2 Intake & Output: Intake and Output for Last 24 Hours 05/03/21 05/04/21 05/05/21 23:59 23:59 23:59 Intake Total 4143.33 / 4143.33 4605.0 / 5185.0 2152.75 / 2152.75 Output Total 550 / 875 1400 / 1900 1050 / 1050 Balance 3593.33 / 3268.33 3205.0 / 3285.0 1102.75 / 1102.75 Lab / Micro Data Result Diagrams: 05/05/21 03:15 05/05/21 03:15 Labs: Laboratory Results - last 24 hr 05/04/21 06:14: POC Glucose 150 H 05/04/21 12:24: POC Glucose 151 H 05/04/21 16:56: POC Glucose 154 H 05/04/21 21:36: POC Glucose 96 05/05/21 03:15: WBC 8.9, RBC 4.04 L, Hgb 11.7 L, Hct 33.4 L, MCV 82.7, MCH 29.0, MCHC 35.0, RDW Std Deviation 52.2 H, RDW Coeff of Aleksandar 17.2 H, Plt Count 183, MPV 11.2, Immature Gran % (Auto) 1.600 H, Neut % (Auto) 82.6 H, Lymph % (Auto) 7.3 L , [place] % (Auto) 8.2, Eos % (Auto) 0.2, Baso % (Auto) 0.1, Absolute Neuts (auto) 7.3, Absolute Lymphs (auto) 0.65 L, Nucleated RBC % 0 05/05/21 03:15: Sodium 130 L, Potassium 3.5, Chloride 99, Carbon Dioxide 20.0 L, Anion Gap 11, BUN 82 H, Creatinine 4.58 H, Estim Creat Clear Calc 11.75, Est GFR (MDRD) Af Amer 13 L, Est GFR (MDRD) Non-Af 10 L, BUN/Creatinine Ratio 17.9, Glucose 88, Calcium 6.7 L, Total Bilirubin 0.30, AST 66 H, ALT 61 H, Alkaline Phosphatase 92, Total Protein 4.9 L, Albumin 1.6 L, Globulin 3.3, Albumin/Globulin Ratio 0.5 L 05/05/21 06:32: POC Glucose 101 05/05/21 09:47: POC Glucose 109 Micro: Microbiology 05/02/21 18:00 Blood Culture (Wb) - No Site/Description Given Blood Culture - Preliminary No growth in 48 hours. 05/02/21 17:45 Blood Culture (Wb) - Anticubital Left Blood Culture - Preliminary No growth in 48 hours. 05/02/21 14:00 Nasal Secretion SARS-CoV-2 Antigen (Rapid) - Final Physical Exam Narrative Constitutional Narrative: Patient appears older than her stated age, she is somewhat confused at this time and somnolent General Appearance: cooperative, well kempt and well developed Orientation / Consciousness: awake, oriented to person, oriented to place HEENT normocephalic, head/scalp atraumatic and moist oral mucous membranes Head and Scalp: normocephalic Eyes PERRL, EOMs intact bilaterally and conjunctivae normal Neck nuchal rigidity, supple, no JVD and thyroid normal General: trachea midline Resp normal respiratory effort, no retractions, no use of accessory muscles and clear to auscultation bilaterally Auscultation: Negative for rales, rhonchi or wheezes Cardio regular rate, regular rhythm, S1 normal heart sound, S2 normal heart sound, no murmurs, no rub, no gallops and no clicks GI normal to inspection, nondistended, normoactive bowel sounds, soft to palpation, non-tender and non-distended Extremity normal to inspection and no clubbing, cyanosis or edema Skin no rashes or lesions noted, no wounds and skin turgor normal General Skin Exam: no breakdown Neuro CN's II-XII intact bilaterally and no focal motor deficits Neuro Narrative: Patient is lethargic and mildly confused Psych Psych Narrative: Patient is lethargic and mildly confused Assessment & Plan Assessment/Plan (1) Acute kidney injury: PLAN: 1. Acute hypercapnic and hypoxic respiratory failure-the exact etiology of which is unknown at this time, continue pulmonary care per critical care, patient has intermittently been placed on BiPAP as needed, she will use BiPAP when sleeping and she will be transferred to PCU #2 acute kidney injury-patient's creatinine was 0.75 in March of this year, the etiology of the patient's renal failure at this point is not known, nephrology is continuing to see the patient, they do not have any plan for dialysis at this time, patient's creatinine is improving #3 chronic obstructive pulmonary disease-continue aerosol treatments, pulmonary medicine is seeing patient #4 metabolic encephalopathy-probably secondary to renal failure and possibly home medications, continue to monitor #5 atherosclerotic heart disease-this appears stable at this time, I will review the patient's medications #6 chronic depression-patient is currently on Lexapro-oral medications are being held at this time, this will be resumed #7 essential hypertension-I will review the patient's blood pressure medications at this time, her pressure is 166/82 today Charges/Coding Visit Charges Inpatient E&M: 69066 Subs Hosp L2
--- NOTE | 2021-05-05 10:32 | PCM.PN.REN ---
Subjective Subjective Following for LOVE. The patient denies chest pain or shortness of breath at rest. There is no lower extremity edema. Objective Data Objective Data Vital Signs: Vital Signs Temp Pulse Resp BP Pulse Ox 97.0 F L 105 H 20 H 166/82 H 91 05/05/21 08:00 05/05/21 10:00 05/05/21 10:00 05/05/21 10:00 05/05/21 10:00 Oxygen Flow Rate (L/min) 2 Oxygen Delivery Method Bi-pap Weight: 98.1 kg Body Mass Index (BMI) 34.2 Intake & Output: Intake and Output for Last 24 Hours 05/03/21 05/04/21 05/05/21 23:59 23:59 23:59 Intake Total 4143.33 / 4143.33 4605.0 / 5185.0 2152.75 / 2152.75 Output Total 550 / 875 1400 / 1900 1050 / 1050 Balance 3593.33 / 3268.33 3205.0 / 3285.0 1102.75 / 1102.75 Lab / Micro Data Result Diagrams: 05/05/21 03:15 05/05/21 03:15 Labs: Laboratory Results - last 24 hr 05/04/21 06:14: POC Glucose 150 H 05/04/21 12:24: POC Glucose 151 H 05/04/21 16:56: POC Glucose 154 H 05/04/21 21:36: POC Glucose 96 05/05/21 03:15: WBC 8.9, RBC 4.04 L, Hgb 11.7 L, Hct 33.4 L, MCV 82.7, MCH 29.0, MCHC 35.0, RDW Std Deviation 52.2 H, RDW Coeff of Aleksandar 17.2 H, Plt Count 183, MPV 11.2, Immature Gran % (Auto) 1.600 H, Neut % (Auto) 82.6 H, Lymph % (Auto) 7.3 L, [place] % (Auto) 8.2, Eos % (Auto) 0.2, Baso % (Auto) 0.1, Absolute Neuts (auto) 7.3, Absolute Lymphs (auto) 0.65 L, Nucleated RBC % 0 05/05/21 03:15: Sodium 130 L, Potassium 3.5, Chloride 99, Carbon Dioxide 20.0 L, Anion Gap 11, BUN 82 H, Creatinine 4.58 H, Estim Creat Clear Calc 11.75, Est GFR (MDRD) Af Amer 13 L, Est GFR (MDRD) Non-Af 10 L, BUN/Creatinine Ratio 17.9, Glucose 88, Calcium 6.7 L, Total Bilirubin 0.30, AST 66 H, ALT 61 H, Alkaline Phosphatase 92, Total Protein 4.9 L, Albumin 1.6 L, Globulin 3.3, Albumin/Globulin Ratio 0.5 L 05/05/21 06:32: POC Glucose 101 05/05/21 09:47: POC Glucose 109 Micro: Microbiology 05/02/21 18:00 Blood Culture (Wb) - No Site/Description Given Blood Culture - Preliminary No growth in 48 hours. 05/02/21 17:45 Blood Culture (Wb) - Anticubital Left Blood Culture - Preliminary No growth in 48 hours. 05/02/21 14:00 Nasal Secretion SARS-CoV-2 Antigen (Rapid) - Final Physical Exam Narrative General: No apparent distress HEENT: Normocephalic, atraumatic, mild cyanosis of the lips, mucous membrane moist Heart: Normal S1, S2. No rubs or murmurs Lungs: Clear to auscultation anteriorly Abdomen: Normal bowel sound, soft, nontender, no guarding or rebound Extremity: No edema. Assessment & Plan Assessment/Plan (1) Acute kidney injury: PLAN: -The patient has a prior history of LOVE that resolves in the past. Her baseline serum creatinine is normal at 0.75 mg/dL (04/11/2021). -Current LOVE appears to be prerenal. Fractional excretion of sodium on 05/02/2021 was less than 1%. -Renal function is also improving with IV fluid. -Serum creatinine peaked at 9.22 mg/dL on 05/02/2021. Serum creatinine is now 4.58 mg/dL. -There is no evidence of volume overload, so we will continue IV fluid for another day. -Continue to hold lisinopril and hydrochlorothiazide until renal function returns to baseline. -There is no need for kidney replacement therapy. -Reassess kidney function and volume status again tomorrow. (2) Hyponatremia: PLAN: -Hyponatremia is likely due to decreased effective blood volume and LOVE. -Serum sodium is improving with volume repletion. -Continue current isotonic IV fluid. -Recheck serum sodium tomorrow. (3) Metabolic acidosis: PLAN: -Metabolic acidosis is secondary to LOVE. -Serum bicarbonate level is improving with improvement of renal function and prior sodium bicarbonate IV fluid infusion. -Since serum bicarbonate level is still low at 20 mmol/L, I will change IV fluid from normal saline to LR. -Continue to follow serum bicarbonate levels. (4) Acute respiratory failure with hypoxia and hypercapnia: PLAN: -Treatment of COPD exacerbation with bronchodilator is as directed by pulmonary/critical care service. -She will be transferring to regular nursing floor today from ICU.
[2021-05-05] MEDS: Lactated Ringers 1,000 ML 150 ML IV ×2 (10:35→17:23)
[2021-05-05 12:21] LABS: Bedside Glucose 152 mg/dL (70-110)
[2021-05-05] MEDS: Insulin Lispro 100 UNIT/ML INSULN.PEN SC (12:22)
--- NOTE | 2021-05-05 15:49 | CPS ---
pt increased to 3.5lpm. Saturation 92% on 3.5lpm
[2021-05-05 17:06] LABS: Bedside Glucose 140 mg/dL (70-110)
[2021-05-05 21:31] LABS: Bedside Glucose 140 mg/dL (70-110)
[2021-05-05] MEDS: Metoprolol Tartrate 50 MG Tablet PO (21:33)
[2021-05-06] VITALS (17 sets, daily range): BP systolic 138–157; BP diastolic 89–104; PULSE 88–112; RESP 14–25; TEMP 36.2–36.9; O2SAT 91–100
[2021-05-06] MEDS: Lactated Ringers 1,000 ML 150 ML IV ×4 (00:25→21:23)
[2021-05-06] MEDS: Heparin Injection (Vial) 5,000 UNIT/ML VIAL 5000 UNIT SC ×3 (06:13→21:22)
[2021-05-06] MEDS: Ipratropium/Albuterol Sulfate 3 ML AMPUL.NEB INHALATION ×4 (06:45→20:10)
[2021-05-06 06:57] LABS: Albumin, Serum 1.6 g/dL (3.2-5.0); BUN 73 mg/dL (7-18); BUN/Creat Ratio 18.5 RATIO (10-20); Calcium,Total 7.4 mg/dL (8.5-10.1); Chloride 102 mmol/L (98-107); Creatinine, Serum 3.94 mg/dL (0.55-1.02); EST Glomerular Filtration Rate 12 mL/min (>60); Est Glom Filt Rate - Afr Amer 15 mL/min (>60); Estimated Creatinine Clearance 13.66 ml/min; Glucose 101 mg/dL (74-106); Phosphorus 3.2 mg/dL (2.5-4.9); Potassium 3.5 mmol/L (3.5-5.1); Sodium Level 132 mmol/L (136-145)
[2021-05-06 07:21] LABS: Bedside Glucose 126 mg/dL (70-110)
--- NOTE | 2021-05-06 07:56 | PN.HOSP_ITS ---
Subjective Subjective Patient is a 61-year-old female admitted with decreased level of sensorium and assessment of acute on chronic hypoxic and hypercapnic respiratory failure made initially admitted to the intensive care unit Objective Data Objective Data Vital Signs: Vital Signs Temp Pulse Resp BP Pulse Ox 97.1 F L 104 H 18 138/90 H 95 05/06/21 02:00 05/06/21 07:00 05/06/21 02:00 05/06/21 02:00 05/06/21 02:00 Oxygen Flow Rate (L/min) 2 Oxygen Delivery Method Nasal Cannula Weight: 102.8 kg Body Mass Index (BMI) 34.2 Intake & Output: Intake and Output for Last 24 Hours 05/04/21 05/05/21 05/06/21 23:59 23:59 23:59 Intake Total 4605.0 / 5185.0 3497.75 / 3497.75 1999 / 1999 Output Total 1400 / 1900 1750 / 1750 100 / 100 Balance 3205.0 / 3285.0 1747.75 / 1747.75 1900 / 1900 Lab / Micro Data Result Diagrams: 05/05/21 03:15 05/06/21 05:11 Labs: Laboratory Results - last 24 hr 05/05/21 09:47: POC Glucose 109 05/05/21 12:17: POC Glucose 152 H 05/05/21 17:00: POC Glucose 140 H 05/05/21 21:21: POC Glucose 140 H 05/06/21 05:11: Sodium 132 L, Potassium 3.5, Chloride 102, Carbon Dioxide 19.0 L , BUN 73 H, Creatinine 3.94 H, Estim Creat Clear Calc 13.66, Est GFR (MDRD) Af Amer 15 L, Est GFR (MDRD) Non-Af 12 L, BUN/Creatinine Ratio 18.5, Glucose 101, Calcium 7.4 L, Phosphorus 3.2, Albumin 1.6 L 05/06/21 05:11: Lactic Acid 1.0 05/06/21 06:48: POC Glucose 126 H Micro: Microbiology 05/02/21 18:00 Blood Culture (Wb) - No Site/Description Given Blood Culture - Preliminary No growth in 48 hours. 05/02/21 17:45 Blood Culture (Wb) - Anticubital Left Blood Culture - Preliminary No growth in 48 hours. 05/02/21 14:00 Nasal Secretion SARS-CoV-2 Antigen (Rapid) - Final Physical Exam Narrative GENERAL: Appears ill looking HEENT: Atraumatic; EYES; Anicteric, Normal Conjunctiva NECK; supple, normal thyroid, RESPIRATORY: Diminished to auscultation CARDIOVASCULAR: Regular S1 S2, GI: soft, normoactive bowel sounds, : No Renal angle tenderness; EXTREMITIES: No edema, no clubbing, MUSCULOSKELETAL: no muscle wasting NEURO: Awake; no lateralizing signs. SKIN: Bruises on upper extremities PSYCH; Flat affect Assessment & Plan Assessment/Plan (1) Acute kidney injury: PLAN: Patient is a 61-year-old female admitted with decreased level of sensorium and assessment of acute on chronic hypoxic and hypercapnic respiratory failure made initially admitted to the intensive care unit 1. Acute on chronic hypercapnic respiratory failure ?Due to a combination of factors including COPD with possible exacerbation, accidental/unintentional drug overdose versus drug drug interaction (patient was on gabapentin, [place] as well as tizanidine). Patient was managed with noninvasive ventilation transferred to the progressive care unit once her level of sensorium improved she was seen in consultation by pulmonary medicine notes and recommendations reviewed 2. Severe hyponatremia ?Sodium level on admission was 119 this was thought to be secondary to medication patient was on HCTZ as well as possible SIADH from a pulmonary condition. Sodium levels up to 132 as of 05/06/2021 3. Acute metabolic encephalopathy ?Due to combination of #1 and 2 management as discussed above 4. Acute kidney injury ?Patient creatinine as of 04/11/2021 was 0.75. Creatinine on admission was 9.22. Patient has been managed with fluids potential nephrotoxic medications held creatinine as of 05/06/2021 was 3.94. Patient has also been seen in consultation by nephrology 5. COPD with acute exacerbation ?Aerosol treatment in addition to supplemental oxygen 6. Class II obesity with BMI of 37.7 ?Weight loss advised 7. Tobacco dependence - Counseled on cessation, offered nicotine patch for tobacco cravings 8. Chronic pain syndrome ?Patient was on tizanidine, [place] as well as gabapentin prior to her admission. Patient pain meds subsequently adjusted with initiation of Tylenol [id number] as well as Lidoderm patches 9. Coronary artery disease ?With previous PCI. Patient did not present with any ischemic symptoms 10. Dyslipidemia -Patient is on statin therapy, continued at home dose 11. Essential hypertension ?Home meds continue except for lisinopril as well as HCTZ in view of impaired kidney function 12. Paroxysmal A. fib ?Rate controlled 13. DVT prophylaxis ?Heparin 5000 SC every 8 Charges/Coding Visit Charges Inpatient E&M: 94096 Subs Hosp L2
[2021-05-06] MEDS: Aspirin E.C. 81 MG Tablet PO (08:25)
[2021-05-06] MEDS: Escitalopram Oxalate 20 MG Tablet PO (10:27)
[2021-05-06] MEDS: Clopidogrel Bisulfate 75 MG Tablet PO (10:27)
[2021-05-06] MEDS: Atorvastatin Calcium 80 MG Tablet PO (10:27)
[2021-05-06] MEDS: Metoprolol Tartrate 50 MG Tablet PO ×2 (10:27→21:21)
[2021-05-06 12:05] LABS: Bedside Glucose 125 mg/dL (70-110)
[2021-05-06] MEDS: oxyCODONE 5 MG Tablet PO ×2 (14:23→20:25)
[2021-05-06] MEDS: Acetaminophen 500 MG Tablet 1000 MG PO ×2 (14:23→21:20)
--- NOTE | 2021-05-06 14:44 | CHAPLAIN ---
Type of Pastoral Visit _x__ Initial Visit ___ Follow-up Visit ___ On-call Visit ___ General Patient Visit ___ Spiritual Assessment ___ Family Conference ___ Bereavement ___ Rapid Response ___ Code Blue ___ Other (describe below) Pastoral Care Referral From _x__ Patient ___ Family ___ Nurse ___ Physician ___ House Worker ___ Venue Manager ___ Other (describe below) Sacrament/Intervention ___ Active listening ___ Anointing ___ Yarsanism ___ Bereavement ___ Communion ___ Karen exploration ___ ___ Life review _x__ Prayer ___ Reconciliation ___ Sacrament of Sick _x__ Supportive presence ___ Wedding ___ Other (describe below) Pastoral Comments patient is alert and yet is slow to speak; pt states that about the same, maybe a little improvement and a prayer would be ok
--- NOTE | 2021-05-06 15:25 | PN.RENAL_ITS ---
Subjective Subjective Sitting in chair. Reports appetite is poor, denies any nausea or vomiting. Requesting for carter to be removed. Objective Data Objective Data Vital Signs: Vital Signs Temp Pulse Resp BP Pulse Ox 98.4 F 101 H 20 H 157/97 H 95 05/06/21 08:15 05/06/21 15:03 05/06/21 15:03 05/06/21 10:27 05/06/21 08:15 Oxygen Flow Rate (L/min) 2 Oxygen Delivery Method Nasal Cannula Weight: 102.8 kg Body Mass Index (BMI) 34.2 Intake & Output: Intake and Output for Last 24 Hours 05/04/21 05/05/21 05/06/21 23:59 23:59 23:59 Intake Total 4605.0 / 5185.0 3497.75 / 3497.75 3420 / 3420 Output Total 1400 / 1900 1750 / 1750 650 / 650 Balance 3205.0 / 3285.0 1747.75 / 1747.75 2770 / 2770 Lab / Micro Data Result Diagrams: 05/05/21 03:15 05/06/21 05:11 Labs: Laboratory Results - last 24 hr 05/05/21 17:00: POC Glucose 140 H 05/05/21 21:21: POC Glucose 140 H 05/06/21 05:11: Sodium 132 L, Potassium 3.5, Chloride 102, Carbon Dioxide 19.0 L , BUN 73 H, Creatinine 3.94 H, Estim Creat Clear Calc 13.66, Est GFR (MDRD) Af Amer 15 L, Est GFR (MDRD) Non-Af 12 L, BUN/Creatinine Ratio 18.5, Glucose 101, Calcium 7.4 L, Phosphorus 3.2, Albumin 1.6 L 05/06/21 05:11: Lactic Acid 1.0 05/06/21 06:48: POC Glucose 126 H 05/06/21 12:00: POC Glucose 125 H Micro: Microbiology 05/02/21 18:00 Blood Culture (Wb) - No Site/Description Given Blood Culture - Preliminary No growth in 48 hours. 05/02/21 17:45 Blood Culture (Wb) - Anticubital Left Blood Culture - Preliminary No growth in 48 hours. 05/02/21 14:00 Nasal Secretion SARS-CoV-2 Antigen (Rapid) - Final Physical Exam Narrative General: No apparent distress HEENT: Normocephalic, atraumatic, mucous membrane moist Heart: Normal S1, S2. No rubs or murmurs Lungs: Clear to auscultation anteriorly Abdomen: Normal bowel sound, soft, nontender, no guarding or rebound Extremity: No edema. indwelling carter with clear urine Assessment & Plan Assessment/Plan (1) Acute kidney injury: PLAN: -The patient has a prior history of LOVE that resolves in the past. Her baseline serum creatinine is normal at 0.75 mg/dL (04/11/2021). -Current LOVE appears to be prerenal. Fractional excretion of sodium on 05/02/2021 was less than 1%. -Renal function continues to improve with IV fluid. 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 -Serum creatinine peaked at 9.22 mg/dL on 05/02/2021. Serum creatinine is now 3. 94 mg/dL. -There is no evidence of volume overload, so we will continue IV fluid for another day. -Continue to hold lisinopril and hydrochlorothiazide until renal function returns to baseline. -Remove carter, Strict I&O. -Reassess kidney function and volume status again tomorrow. (2) Hyponatremia: PLAN: -Hyponatremia is likely due to decreased effective blood volume and LOVE. -Serum sodium is improving with volume repletion, currently 132. -Continue current isotonic IV fluid. (3) Metabolic acidosis: PLAN: -Metabolic acidosis is secondary to LOVE. -Serum bicarbonate level is improving with improvement of renal function and prior sodium bicarbonate IV fluid infusion. -Since serum bicarbonate level at 19-20 mmol/L, currently on LR. -Continue to follow serum bicarbonate levels. (4) Acute respiratory failure with hypoxia and hypercapnia: PLAN: -Treatment of COPD exacerbation with bronchodilator is as directed by pulmonary/critical care service.
[2021-05-06] MEDS: Insulin Lispro 100 UNIT/ML INSULN.PEN SC (16:43)
[2021-05-06 16:50] LABS: Bedside Glucose 166 mg/dL (70-110)
[2021-05-06 21:40] LABS: Bedside Glucose 124 mg/dL (70-110)
[2021-05-07] VITALS (19 sets, daily range): BP systolic 142–159; BP diastolic 87–101; PULSE 88–104; RESP 16–20; TEMP 36.1–37.1; O2SAT 89–97
[2021-05-07] MEDS: oxyCODONE 5 MG Tablet PO ×4 (02:25→23:03)
[2021-05-07] MEDS: Lactated Ringers 1,000 ML 150 ML IV ×2 (04:04→11:42)
[2021-05-07 05:28] LABS: Absolute Lymphocyte Count 1.01 X10^3/uL (0.83-4.51); Absolute Neutrophil Count 5.4 X10^3/uL (2.0-7.7); Basophil# 0.02 X10^3/uL; Basophil% 0.3 % (0-1); Eosinophil# 0.07 X10^3/uL; Eosinophils% 0.9 % (0-5); Hematocrit 33.4 % (37-47); Hemoglobin 11.5 g/dL (12.0-15.0); Lymphocyte # 1.01 X10^3/ul (0.83-4.51); Lymphocyte % 13.3 % (19-41); Mean Corp Hgb Conc 34.4 g/dL (32-36); Mean Corpuscular Hgb 28.8 pg (27.0-32.0); Mean Corpuscular Volume 83.5 fL (81-99); Mean Platelet Vol. 9.9 fl (6.2-12.0); Monocyte# 0.72 X10^3/uL; Monocyte% 9.5 % (0-10); NRBC Flagged by Analyzer 0 % (0-5); Neutrophil % 71.3 % (47-70); Platelet Count 245 K/mm3 (150-450); RBC Distribution Width CV 17.3 % (11.6-14.6); RBC Distribution Width SD 53.3 fl (35.1-43.9); White Blood Count 7.6 K/mm3 (4.4-11.0)
[2021-05-07 05:59] LABS: Anion Gap 10 (5-15); BUN 65 mg/dL (7-18); BUN/Creat Ratio 17.9 RATIO (10-20); Calcium,Total 7.8 mg/dL (8.5-10.1); Chloride 103 mmol/L (98-107); Creatinine, Serum 3.64 mg/dL (0.55-1.02); EST Glomerular Filtration Rate 14 mL/min (>60); Est Glom Filt Rate - Afr Amer 16 mL/min (>60); Estimated Creatinine Clearance 14.79 ml/min; Glucose 88 mg/dL (74-106); Potassium 3.5 mmol/L (3.5-5.1); Sodium Level 132 mmol/L (136-145)
[2021-05-07] MEDS: Acetaminophen 500 MG Tablet 1000 MG PO ×3 (06:09→22:08)
[2021-05-07] MEDS: Heparin Injection (Vial) 5,000 UNIT/ML VIAL 5000 UNIT SC ×3 (06:12→22:10)
[2021-05-07] MEDS: BMX LIQUID 180 ML PO ×2 (06:20→14:51)
[2021-05-07 06:41] LABS: Bedside Glucose 103 mg/dL (70-110)
[2021-05-07] MEDS: Ipratropium/Albuterol Sulfate 3 ML AMPUL.NEB INHALATION ×4 (06:58→19:14)
--- NOTE | 2021-05-07 07:09 | PN.HOSP_ITS ---
Subjective Subjective Patient seen she states she is much more comfortable after subsequent adjustment made to her pain regimen. Patient creatinine continues to trend down. Objective Data Objective Data Vital Signs: Vital Signs Temp Pulse Resp BP Pulse Ox 97.6 F L 91 20 H 159/99 H 94 05/07/21 06:02 05/07/21 07:01 05/07/21 07:01 05/07/21 06:02 05/07/21 07:01 Oxygen Flow Rate (L/min) 3 Oxygen Delivery Method Nasal Cannula Weight: 103.6 kg Body Mass Index (BMI) 34.2 Intake & Output: Intake and Output for Last 24 Hours 05/05/21 05/06/21 05/07/21 23:59 23:59 23:59 Intake Total 3497.75 / 3497.75 5192.5 / 5192.5 1250 / 1250 Output Total 1750 / 1750 850 / 850 Balance 1747.75 / 1747.75 4342.5 / 4342.5 1250 / 1250 Lab / Micro Data Result Diagrams: 05/07/21 04:22 05/07/21 04:22 Labs: Laboratory Results - last 24 hr 05/06/21 06:48: POC Glucose 126 H 05/06/21 12:00: POC Glucose 125 H 05/06/21 16:42: POC Glucose 166 H 05/06/21 21:08: POC Glucose 124 H 05/07/21 04:22: WBC 7.6, RBC 4.00 L, Hgb 11.5 L, Hct 33.4 L, MCV 83.5, MCH 28.8, MCHC 34.4, RDW Std Deviation 53.3 H, RDW Coeff of Aleksandar 17.3 H, Plt Count 245, MPV 9.9, Immature Gran % (Auto) 4.700 H, Neut % (Auto) 71.3 H, Lymph % (Auto) 13.3 L , [place] % (Auto) 9.5, Eos % (Auto) 0.9, Baso % (Auto) 0.3, Absolute Neuts (auto) 5.4, Absolute Lymphs (auto) 1.01, Nucleated RBC % 0 05/07/21 04:22: Sodium 132 L, Potassium 3.5, Chloride 103, Carbon Dioxide 19.0 L , Anion Gap 10, BUN 65 H, Creatinine 3.64 H, Estim Creat Clear Calc 14.79, Est GFR (MDRD) Af Amer 16 L, Est GFR (MDRD) Non-Af 14 L, BUN/Creatinine Ratio 17.9, Glucose 88, Calcium 7.8 L 05/07/21 06:31: POC Glucose 103 Micro: Microbiology 05/02/21 18:00 Blood Culture (Wb) - No Site/Description Given Blood Culture - Preliminary No growth in 48 hours. 05/02/21 17:45 Blood Culture (Wb) - Anticubital Left Blood Culture - Preliminary No growth in 48 hours. 05/02/21 14:00 Nasal Secretion SARS-CoV-2 Antigen (Rapid) - Final Physical Exam Narrative GENERAL: Appears ill looking HEENT: Atraumatic; EYES; Anicteric, Normal Conjunctiva NECK; supple, normal thyroid, RESPIRATORY: Diminished to auscultation CARDIOVASCULAR: Regular S1 S2, GI: soft, normoactive bowel sounds, : No Renal angle tenderness; EXTREMITIES: No edema, no clubbing, MUSCULOSKELETAL: no muscle wasting NEURO: Awake; no lateralizing signs. SKIN: Bruises on upper extremities PSYCH; Flat affect Assessment & Plan Assessment/Plan (1) Acute kidney injury: PLAN: Patient is a 61-year-old female admitted with decreased level of sensorium and assessment of acute on chronic hypoxic and hypercapnic respiratory failure made initially admitted to the intensive care unit 1. Acute on chronic hypercapnic respiratory failure ?Due to a combination of factors including COPD with possible exacerbation, accidental/unintentional drug overdose versus drug drug interaction (patient was on gabapentin, [place] as well as tizanidine). Patient was managed with noninvas bernardo ventilation transferred to the progressive care unit once her level of sensorium improved she was seen in consultation by pulmonary medicine notes and recommendations reviewed ?05/07/2021; patient remains on supplemental oxygen plan is to try to wean off 2. Severe hyponatremia ?Sodium level on admission was 119 this was thought to be secondary to medication patient was on HCTZ as well as possible SIADH from a pulmonary condition. Sodium levels up to 132 as of 05/06/2021 ?06/04/2021 sodium level up to 132 3. Acute metabolic encephalopathy ?Due to combination of #1 and 2 management as discussed above 4. Acute kidney injury ?Patient creatinine as of 04/11/2021 was 0.75. Creatinine on admission was 9.22. Patient has been managed with fluids potential nephrotoxic medications held creatinine as of 05/06/2021 was 3.94. Patient has also been seen in consultation by nephrology ?05/07/2021 creatinine continues to trend down 3.64 as of today 5. COPD with acute exacerbation ?Aerosol treatment in addition to supplemental oxygen 6. Class II obesity with BMI of 37.7 ?Weight loss advised 7. Tobacco dependence - Counseled on cessation, offered nicotine patch for tobacco cravings 8. Chronic pain syndrome ?Patient was on tizanidine, [place] as well as gabapentin prior to her admission. Patient pain meds subsequently adjusted with initiation of Tylenol [id number] as well as Lidoderm patches 9. Coronary artery disease ?With previous PCI. Patient did not present with any ischemic symptoms 10. Dyslipidemia -Patient is on statin therapy, continued at home dose 11. Essential hypertension ?Home meds continue except for lisinopril as well as HCTZ in view of impaired kidney function 12. Paroxysmal A. fib ?Rate controlled 13. DVT prophylaxis ?Heparin 5000 SC every 8 14. Physical deconditioning - Requested for PT OT eval and social media job titles to assist with discharge planning Charges/Coding Visit Charges Inpatient E&M: 52780 Subs Hosp L2
[2021-05-07] MEDS: Aspirin E.C. 81 MG Tablet PO (09:26)
[2021-05-07] MEDS: Escitalopram Oxalate 20 MG Tablet PO (09:27)
[2021-05-07] MEDS: Atorvastatin Calcium 80 MG Tablet PO (09:27)
[2021-05-07] MEDS: Clopidogrel Bisulfate 75 MG Tablet PO (09:27)
[2021-05-07] MEDS: Metoprolol Tartrate 50 MG Tablet PO ×2 (09:27→22:09)
--- NOTE | 2021-05-07 09:32 | CASEMGMT ---
Physician said patient let him know her son would like her to go to a SNF. MISTY met with patient, introduced self and role at [facility]. Patient is in agreement with going to a SNF short term. She said she is leaving it up to her son as to where she will go. SW called patient's son and he confirmed he thinks it would be best if patient went to a long term facility for rehab. He was not sure where. He has not had time to check into this. He lives in [place] and originally wanted her to go to someplace up there, but he is not sure where. He said since patient is ready going to a facility in [facility] is fine. SW told him SW can let him know. SW spoke with patient again. SW provided patient with a list of SNF providers including quality and resource use data and consistent with the patient?s preferred geographic region, medical needs, and insurance network. SW let patient know that the facilities MISTY highlighted in pink are the ones that take her insurance. [facility] chose [facility], and [facility]. SW let patient know SW will work on referrals. MISTY faxed referrals to Kathy with [facility] and Maureen at [facility]. Asia SCHREIBER
--- NOTE | 2021-05-07 10:40 | CASEMGMT ---
MISTY received a call from Kathy with [facility] and they can accept patient at either facility. MISTY spoke with patient and told her that out of the 3 facilities she chose only [facility] allows smoking. Patient said she is going to need to smoke when she leaves. Patient said she will go to [facility] so she can smoke. MISTY called Kathy and let her know patient would like [facility]. Kathy will start the pre-cert. MISTY called Maureen at [facility] and canceled the referral. Plan: [facility] pending insurance approval. Asia Barfield PHOTOGRAPHY SPOTTER CANDIE
--- NOTE | 2021-05-07 12:01 | PN.RENAL_ITS ---
Subjective Subjective no new events. feels well. no edema. breathing is better. remains on low O2. Objective Data Objective Data Vital Signs: Vital Signs Temp Pulse Resp BP Pulse Ox 97.7 F L 90 20 H 149/89 H 92 05/07/21 08:02 05/07/21 11:29 05/07/21 11:29 05/07/21 09:27 05/07/21 11:29 Oxygen Flow Rate (L/min) 3 Oxygen Delivery Method Room Air Weight: 103.6 kg Body Mass Index (BMI) 34.2 Intake & Output: Intake and Output for Last 24 Hours 05/05/21 05/06/21 05/07/21 23:59 23:59 23:59 Intake Total 3497.75 / 3497.75 5192.5 / 5192.5 2250 / 2250 Output Total 1750 / 1750 850 / 850 Balance 1747.75 / 1747.75 4342.5 / 4342.5 2250 / 2250 Lab / Micro Data Result Diagrams: 05/07/21 04:22 05/07/21 04:22 Labs: Laboratory Results - last 24 hr 05/06/21 12:00: POC Glucose 125 H 05/06/21 16:42: POC Glucose 166 H 05/06/21 21:08: POC Glucose 124 H 05/07/21 04:22: WBC 7.6, RBC 4.00 L, Hgb 11.5 L, Hct 33.4 L, MCV 83.5, MCH 28.8, MCHC 34.4, RDW Std Deviation 53.3 H, RDW Coeff of Aleksandar 17.3 H, Plt Count 245, MPV 9.9, Immature Gran % (Auto) 4.700 H, Neut % (Auto) 71.3 H, Lymph % (Auto) 13.3 L , [place] % (Auto) 9.5, Eos % (Auto) 0.9, Baso % (Auto) 0.3, Absolute Neuts (auto) 5.4, Absolute Lymphs (auto) 1.01, Nucleated RBC % 0 05/07/21 04:22: Sodium 132 L, Potassium 3.5, Chloride 103, Carbon Dioxide 19.0 L , Anion Gap 10, BUN 65 H, Creatinine 3.64 H, Estim Creat Clear Calc 14.79, Est GFR (MDRD) Af Amer 16 L, Est GFR (MDRD) Non-Af 14 L, BUN/Creatinine Ratio 17.9, Glucose 88, Calcium 7.8 L 05/07/21 06:31: POC Glucose 103 Micro: Microbiology 05/02/21 18:00 Blood Culture (Wb) - No Site/Description Given Blood Culture - Preliminary No growth in 48 hours. 05/02/21 17:45 Blood Culture (Wb) - Anticubital Left Blood Culture - Preliminary No growth in 48 hours. 05/02/21 14:00 Nasal Secretion SARS-CoV-2 Antigen (Rapid) - Final Physical Exam Narrative General: No apparent distress HEENT: Normocephalic, atraumatic, mucous membrane moist Heart: Normal S1, S2. No rubs or murmurs Lungs: Clear to auscultation anteriorly Abdomen: Normal bowel sound, soft, nontender, no guarding or rebound Extremity: No edema. Assessment & Plan Assessment/Plan (1) Acute kidney injury: PLAN: -The patient has a prior history of LOVE that resolved in the past. Her baseline serum creatinine is normal at 0.75 mg/dL (04/11/2021). -Current LOVE appears to be prerenal. Fractional excretion of sodium on 05/02/2021 was less than 1%. -Renal function continues to improve with IV fluid. 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 -Serum creatinine peaked at 9.22 mg/dL on 05/02/2021. -cr trending down. dc fluids and assess (2) Hyponatremia: PLAN: -Hyponatremia is likely due to decreased effective blood volume and LOVE. -Serum sodium is improving with volume repletion, currently 132. -dc fluids today (3) Metabolic acidosis: PLAN: -Metabolic acidosis is secondary to LOVE. -Serum bicarbonate level is improving with improvement of renal function (4) Acute respiratory failure with hypoxia and hypercapnia: PLAN: -Treatment of COPD exacerbation with bronchodilator is as directed by pulmonary/critical care service. dc plans
[2021-05-07 12:36] LABS: Bedside Glucose 123 mg/dL (70-110)
[2021-05-07 18:11] LABS: Bedside Glucose 120 mg/dL (70-110)
[2021-05-07 22:30] LABS: Bedside Glucose 99 mg/dL (70-110)
[2021-05-08] VITALS (11 sets, daily range): BP systolic 133–179; BP diastolic 78–111; PULSE 82–111; RESP 14–30; TEMP 36.2–36.8; O2SAT 92–99
[2021-05-08] MEDS: Heparin Injection (Vial) 5,000 UNIT/ML VIAL 5000 UNIT SC (05:00)
[2021-05-08] MEDS: oxyCODONE 5 MG Tablet PO ×2 (05:04→11:09)
[2021-05-08] MEDS: Acetaminophen 500 MG Tablet 1000 MG PO ×2 (05:05→13:09)
[2021-05-08] MEDS: hydrALAZINE 20 MG/ML Vial 10 MG IV (05:07)
[2021-05-08 06:31] LABS: Bedside Glucose 87 mg/dL (70-110)
[2021-05-08 06:53] LABS: Anion Gap 10 (5-15); BUN 62 mg/dL (7-18); BUN/Creat Ratio 18.5 RATIO (10-20); Calcium,Total 7.7 mg/dL (8.5-10.1); Chloride 103 mmol/L (98-107); Creatinine, Serum 3.35 mg/dL (0.55-1.02); EST Glomerular Filtration Rate 15 mL/min (>60); Est Glom Filt Rate - Afr Amer 18 mL/min (>60); Estimated Creatinine Clearance 16.07 ml/min; Glucose 74 mg/dL (74-106); Potassium 3.7 mmol/L (3.5-5.1); Sodium Level 133 mmol/L (136-145)
[2021-05-08] MEDS: Ipratropium/Albuterol Sulfate 3 ML AMPUL.NEB INHALATION ×2 (07:04→11:01)
--- NOTE | 2021-05-08 07:40 | PCM.PN.HOSP ---
Subjective Subjective Patient seen breathing is significantly improved. Plan is for patient to be discharged to [facility] Objective Data Objective Data Vital Signs: Vital Signs Temp Pulse Resp BP Pulse Ox 98.2 F 95 18 155/99 H 95 05/08/21 06:18 05/08/21 06:18 05/08/21 06:18 05/08/21 06:18 05/08/21 06:18 Oxygen Flow Rate (L/min) 3 Oxygen Delivery Method Nasal Cannula Weight: 105 kg Body Mass Index (BMI) 34.2 Intake & Output: Intake and Output for Last 24 Hours 05/06/21 05/07/21 05/08/21 23:59 23:59 23:59 Intake Total 5192.5 / 5192.5 3500 / 3500 180 / 180 Output Total 850 / 850 300 / 300 Balance 4342.5 / 4342.5 3200 / 3200 180 / 180 Lab / Micro Data Result Diagrams: 05/07/21 04:22 05/08/21 04:58 Labs: Laboratory Results - last 24 hr 05/07/21 12:12: POC Glucose 123 H 05/07/21 16:49: POC Glucose 120 H 05/07/21 22:05: POC Glucose 99 05/08/21 04:58: Sodium 133 L, Potassium 3.7, Chloride 103, Carbon Dioxide 20.0 L, Anion Gap 10, BUN 62 H, Creatinine 3.35 H, Estim Creat Clear Calc 16.07, Est GFR (MDRD) Af Amer 18 L, Est GFR (MDRD) Non-Af 15 L, BUN/Creatinine Ratio 18.5, Glucose 74, Calcium 7.7 L 05/08/21 06:27: POC Glucose 87 Micro: Microbiology 05/02/21 17:45 Blood Culture (Wb) - Anticubital Left Blood Culture - Final No growth in 5 days. 05/02/21 18:00 Blood Culture (Wb) - No Site/Description Given Blood Culture - Final No growth in 5 days. 05/02/21 14:00 Nasal Secretion SARS-CoV-2 Antigen (Rapid) - Final Physical Exam Narrative GENERAL: Appears ill looking HEENT: Atraumatic; EYES; Anicteric, Normal Conjunctiva NECK; supple, normal thyroid, RESPIRATORY: Diminished to auscultation CARDIOVASCULAR: Regular S1 S2, GI: soft, normoactive bowel sounds, : No Renal angle tenderness; EXTREMITIES: edema, no clubbing, MUSCULOSKELETAL: no muscle wasting NEURO: Awake; no lateralizing signs. SKIN: Bruises on upper extremities PSYCH; Flat affect Assessment & Plan Assessment/Plan (1) Acute kidney injury: PLAN: Patient is a 61-year-old female admitted with decreased level of sensorium and assessment of acute on chronic hypoxic and hypercapnic respiratory failure made initially admitted to the intensive care unit 1. Acute on chronic hypercapnic respiratory failure ?Due to a combination of factors including COPD with possible exacerbation, accidental/unintentional drug overdose versus drug drug interaction (patient was on gabapentin, [place] as well as tizanidine). Patient was managed with noninvasive ventilation transferred to the progressive care unit once her level of sensorium improved she was seen in consultation by pulmonary medicine notes and recommendations reviewed ?05/07/2021; patient remains on supplemental oxygen plan is to try to wean off 2. Severe hyponatremia ?Sodium level on admission was 119 this was thought to be secondary to medication patient was on HCTZ as well as possible SIADH from a pulmonary condition. Sodium levels up to 132 as of 05/06/2021 ?06/04/2021 sodium level up to 132 3. Acute metabolic encephalopathy ?Due to combination of #1 and 2 management as discussed above 4. Acute kidney injury ?Patient creatinine as of 04/11/2021 was 0.75. Creatinine on admission was 9.22. Patient has been managed with fluids potential nephrotoxic medications held creatinine as of 05/06/2021 was 3.94. Patient has also been seen in consultation by nephrology ?05/07/2021 creatinine continues to trend down 3.64 as of today 5. COPD with acute exacerbation ?Aerosol treatment in addition to supplemental oxygen 6. Class II obesity with BMI of 37.7 ?Weight loss advised 7. Tobacco dependence - Counseled on cessation, offered nicotine patch for tobacco cravings 8. Chronic pain syndrome ?Patient was on tizanidine, [place] as well as gabapentin prior to her admission. Patient pain meds subsequently adjusted with initiation of Tylenol [id number] as well as Lidoderm patches 9. Coronary artery disease ?With previous PCI. Patient did not present with any ischemic symptoms 10. Dyslipidemia -Patient is on statin therapy, continued at home dose 11. Essential hypertension ?Home meds continue except for lisinopril as well as HCTZ in view of impaired kidney function 12. Paroxysmal A. fib ?Rate controlled 13. DVT prophylaxis ?Heparin 5000 SC every 8 14. Physical deconditioning - Requested for PT OT eval and vp digital marketing social media and crm to assist with discharge planning Charges/Coding Visit Charges Inpatient E&M: 07939 Subs Hosp L2
--- NOTE | 2021-05-08 08:34 | CASEMGMT ---
MISTY received a call from Kathy with [facility] and patient was approved. SW notified physician. MISTY will ask RN to do a rapid COVID. Asia SCHREIBER
--- NOTE | 2021-05-08 08:49 | CASEMGMT ---
SW let patient know that her insurance approved her to go to [place] today. SW let patient know that SW will notify her son. SW will let patient know when a time has been set up. Physician is aware. Asia SCHREIBER
[2021-05-08] MEDS: Aspirin E.C. 81 MG Tablet PO (09:08)
[2021-05-08] MEDS: Clopidogrel Bisulfate 75 MG Tablet PO (09:08)
[2021-05-08] MEDS: Escitalopram Oxalate 20 MG Tablet PO (09:08)
[2021-05-08] MEDS: Furosemide 100 MG/10 ML Vial 60 MG IV (09:08)
[2021-05-08] MEDS: Menthol/Lanolin/Calamine/Znox 113 GM Tube 1 APPLIC TOPICAL (09:08)
[2021-05-08] MEDS: Atorvastatin Calcium 80 MG Tablet PO (09:08)
[2021-05-08] MEDS: Metoprolol Tartrate 50 MG Tablet PO (09:09)
[2021-05-08] MEDS: 0.9% Saline Lock 10 ML Syringe IV (09:10)
--- NOTE | 2021-05-08 09:11 | TREXTCAR_ITS ---
Diet 05/04/21 10:53 ADA [Diet: Consistent Carb - Calorie Controlled] Type of Dietary Supplement:: Glucerna Shake Is pt able to select menu?: No Diet Comments: 4 oz GS w/ meals tid How many daily calories?: 1800 calorie Wound(s) under b/l breasts: Wound Type: Skin Tear Therapies Physical Therapy: Eval and Treat Occupational Therapy: Eval and Treat Problem/Diagnosis (1) Acute kidney injury: Status: Acute Allergies/Procedures Done in Hospital Allergies adhesive Adverse Reaction (Verified 04/17/21 14:43) Other baclofen Adverse Reaction (Verified 04/17/21 14:43) LETHARGY Type of Care/Length of Stay Estimated LOS: Convalescent Care Less Than 30 days Type of Care Needed: Skilled Rehab Potential: Good Prognosis: Good Additional Orders/Day of Discharge Day of Discharge: 05/08/21 Dietary and Speech Recommendations Dietitian Recommendations/Changes: Pt will consume >50% of meals Will provide 4 oz glucerna shake w/ meals for increased nutrition if consumed. Will interview pt at time of follow up about diet/ wt hx, etc, once mentation improved Discharge Plan Admission Admit Date/Time: 05/02/21 15:29 Attending Provider: Fredy Santamaria Primary Care Provider: Ana Oates Consulting Providers: Santana Bullock ; Ryne Kessler ; Urszula Arboleda NP ; Ellen Bolden Discharge Orders/Prescriptions Prescriptions: New ipratropium-albuterol 0.5 mg-3 mg(2.5 mg base)/3 mL Solution For Nebulization 3 ml inhalation Q4HWA.RT Qty: 0 RF: 0 albuterol sulfate 2.5 mg /3 mL (0.083 %) Solution For Nebulization 2.5 mg inhalation Q2H PRN PRN (Reason: SOB/Wheezing) Qty: 0 RF: 0 acetaminophen 500 mg Tablet 1,000 mg PO Q8 Qty: 0 RF: 0 lidocaine HCl [Lidocaine Viscous] 2 % Solution 5 ml PO Q3H PRN PRN (Reason: MOUTH IRRITATION) Qty: 0 RF: 0 gabapentin 100 mg Capsule 100 mg PO TIDCM Qty: 15 RF: 0 oxycodone 5 mg Tablet 5 mg PO Q6H PRN PRN (Reason: Pain Score 6-10) 3 Days Qty: 12 RF: 0 insulin lispro [Humalog KwikPen Insulin] 100 unit/mL Insulin Pen See Protocol unit subcut ACHS Qty: 0 RF: 0 sodium chloride [Deep Sea Nasal] 0.65 % Aerosol,[place] 2 spray NASAL TID PRN PRN (Reason: NASAL DRYNESS) Qty: 0 RF: 0 chlorhexidine gluconate 2 % Towelette 1 ea topical DAILY Qty: 0 RF: 0 menthol-zinc oxide [Calmoseptine] 0.44-20.6 % Ointment 1 applic topical BID Qty: 0 RF: 0 furosemide [Lasix] 20 mg tablet 20 mg PO DAILY Qty: 30 RF: 0 Continued (DME) Handicap Placard See Rx Instructions .ROUTE .MEDSUPPLY Qty: 1 RF: 0 (DME) Ankle Brace Misc See Rx Instructions .ROUTE .MEDSUPPLY Qty: 1 RF: 0 aspirin 81 MG tablet 81 mg PO DAILY@0800 RF: 0 escitalopram oxalate [Lexapro] 20 mg tablet 20 mg PO DAILY RF: 0 clopidogrel 75 mg tablet 75 mg PO DAILY Qty: 90 RF: 3 rosuvastatin 40 mg tablet 40 mg PO DAILY Qty: 90 RF: 3 metoprolol tartrate 50 mg tablet 50 mg PO BID Qty: 180 RF: 0 Discontinued gabapentin 800 mg tablet 800 mg PO .qid RF: 0 metoprolol tartrate 25 mg tablet 25 mg PO BID RF: 0 hydrocodone-acetaminophen 7.5-325 mg tablet 1 tab PO TID RF: 0 tizanidine 4 MG tablet 4 mg PO TID PRN (Reason: muscle spasm/pain) Qty: 0 RF: 0 hydrochlorothiazide 12.5 mg tablet 12.5 mg PO DAILY Qty: 90 RF: 2 lisinopril 20 mg tablet 20 mg PO BID Qty: 180 RF: 1 Hold Instructions: Resume on 11/28/20. Hold until told to resume by Temper Mill Operator. albuterol sulfate 90 mcg/actuation HFA aerosol inhaler 2 puff INHALATION Q6H PRN (Reason: shortness of breath or wheezing) Qty: 18 RF: 2 trazodone 100 mg tablet 200 mg PO QHS Qty: 60 RF: 2 buspirone 10 mg tablet 20 mg PO TID Qty: 540 RF: 1 Referrals / Follow Up: Ana Oates MD [Primary Care Provider] - Within 1 Month Disposition Disposition (needs filled in before D/C Order can be placed): Intermediate Facility
--- NOTE | 2021-05-08 10:00 | PCM.DC.SUM ---
Providers Date of Admission: 05/02/21 Primary Care Physician: Dr. Ana Oates MD Consultations 05/02/21 17:39 Consult: Heatset Winder Operator / Pulmonary Medicine Routine Consulting Provider: Pulmonary Medicine sunday [place] Reason for Consult: Resp failure EMERGENT Consult: No Notified: Yes Date Notified: 05/02/21 Time Notified: 17:41 Method of Notification: Page Consult: Nephrology Routine Consulting Provider: Ellen Bolden Reason for Consult: LOVE EMERGENT Consult: No Notified: Yes Date Notified: 05/02/21 Time Notified: 17:42 Method of Notification: Answering Service Reason For Visit: RESP FAILURE Diagnosis Discharge Diagnosis (1) Acute kidney injury: Status: Acute Code(s): N17.9 - Acute kidney failure, unspecified Medications at Discharge Home Medications aspirin 81 mg PO DAILY@0800 10/29/17 clopidogrel 75 mg tablet 75 mg PO DAILY #90 tab 08/17/20 escitalopram oxalate [Lexapro] 20 mg PO DAILY 10/17/20 Handicap Placard #1 ea 11/07/20 metoprolol tartrate 50 mg tablet 50 mg PO BID #180 tab 03/28/21 rosuvastatin 40 mg tablet 40 mg PO DAILY #90 tab 03/28/21 leg brace #1 ea 04/11/21 acetaminophen 1,000 mg PO Q8 #0 tab 05/08/21 albuterol sulfate 2.5 mg INHALATION Q2H PRN PRN #0 ml 05/08/21 chlorhexidine gluconate 1 ea TOPICAL DAILY #0 ea 05/08/21 furosemide [Lasix] 20 mg PO DAILY #30 tab 05/08/21 gabapentin 100 mg PO TIDCM #15 cap 05/08/21 insulin lispro [Humalog KwikPen Insulin] See Protocol SUBCUT ACHS #0 ml 05/08/21 ipratropium-albuterol 3 ml INHALATION Q4HWA.RT #0 ml 05/08/21 lidocaine HCl [Lidocaine Viscous] 5 ml PO Q3H PRN PRN #0 ml 05/08/21 menthol-zinc oxide [Calmoseptine] 1 applic TOPICAL BID #0 g 05/08/21 oxycodone 5 mg PO Q6H PRN PRN 3 Days #12 tab 05/08/21 sodium chloride [Deep Sea Nasal] 2 spray NASAL TID PRN PRN #0 ml 05/08/21 Hospital Course Summary of Care Provided Minutes Spent on Discharge: 40 Hospital Course: Patient is a 61-year-old female admitted with decreased level of sensorium and assessment of acute on chronic hypoxic and hypercapnic respiratory failure made initially admitted to the intensive care unit 1. Acute on chronic hypercapnic respiratory failure ?Due to a combination of factors including COPD with possible exacerbation, accidental/unintentional drug overdose versus drug drug interaction (patient was on gabapentin, [place] as well as tizanidine). Patient was managed with noninvasive ventilation transferred to the progressive care unit once her level of sensorium improved she was seen in consultation by pulmonary medicine notes and recommendations reviewed ?05/07/2021; patient remains on supplemental oxygen plan is to try to wean off 2. Severe hyponatremia ?Sodium level on admission was 119 this was thought to be secondary to medication patient was on HCTZ as well as possible SIADH from a pulmonary condition. Sodium levels up to 132 as of 05/06/2021 ?06/04/2021 sodium level up to 132 3. Acute metabolic encephalopathy ?Due to combination of #1 and 2 management as discussed above 4. Acute kidney injury ?Patient creatinine as of 04/11/2021 was 0.75. Creatinine on admission was 9.22. Patient has been managed with fluids potential nephrotoxic medications held creatinine as of 05/06/2021 was 3.94. Patient has also been seen in consultation by nephrology ?05/07/2021 creatinine continues to trend down 3.64 as of today -Kidney function was still improving at the time of discharge plan is for patient to follow-up with nephrology. Repeat labs ordered for 05/13/2020 5. COPD with acute exacerbation ?Aerosol treatment in addition to supplemental oxygen 6. Class II obesity with BMI of 37.7 ?Weight loss advised 7. Tobacco dependence - Counseled on cessation, offered nicotine patch for tobacco cravings 8. Chronic pain syndrome ?Patient was on tizanidine, [place] as well as gabapentin prior to her admission. Patient pain meds subsequently adjusted with initiation of Tylenol [id number] as well as Lidoderm patches 9. Coronary artery disease ?With previous PCI. Patient did not present with any ischemic symptoms 10. Dyslipidemia -Patient is on statin therapy, continued at home dose 11. Essential hypertension ?Home meds continue except for lisinopril as well as HCTZ in view of impaired kidney function 12. Paroxysmal A. fib ?Rate controlled 13. DVT prophylaxis ?Heparin 5000 SC every 8 14. Physical deconditioning - Requested for PT OT eval and social work coordinator to assist with discharge planning Physical Exam Narrative GENERAL: cooperative HEENT: Atraumatic; EYES; Anicteric, Normal Conjunctiva NECK; supple, normal thyroid, RESPIRATORY: Diminished to auscultation CARDIOVASCULAR: Regular S1 S2, GI: soft, normoactive bowel sounds, : No Renal angle tenderness; EXTREMITIES: edema, no clubbing, MUSCULOSKELETAL: no muscle wasting NEURO: Awake; no lateralizing signs. SKIN: No Rash PSYCH; Flat affect Weight / BMI Weight Weight: 105 kg Body Mass Index (BMI) 34.2 ABG / Lab / Microbiology Data Result Diagrams: 05/07/21 04:22 05/08/21 04:58 Laboratory: Laboratory Results - last 24 hr 05/07/21 12:12: POC Glucose 123 H 05/07/21 16:49: POC Glucose 120 H 05/07/21 22:05: POC Glucose 99 05/08/21 04:58: Sodium 133 L, Potassium 3.7, Chloride 103, Carbon Dioxide 20.0 L, Anion Gap 10, BUN 62 H, Creatinine 3.35 H, Estim Creat Clear Calc 16.07, Est GFR (MDRD) Af Amer 18 L, Est GFR (MDRD) Non-Af 15 L, BUN/Creatinine Ratio 18.5, Glucose 74, Calcium 7.7 L 05/08/21 06:27: POC Glucose 87 Microbiology: Microbiology 05/08/21 09:15 Nasal Secretion SARS-CoV-2 Antigen (Rapid) - Final 05/02/21 17:45 Blood Culture (Wb) - Anticubital Left Blood Culture - Final No growth in 5 days. 05/02/21 18:00 Blood Culture (Wb) - No Site/Description Given Blood Culture - Final No growth in 5 days. 05/02/21 14:00 Nasal Secretion SARS-CoV-2 Antigen (Rapid) - Final D/C Instructions Discharge Diet: 1800 Calorie Control Diet and Renal Diet Discharge Activity: Return to Normal Activity Call your doctor if you observe: Fever of 101 or Higher, Shortness of breath, Fainting spells and Chest pain Meaningful Use Info Meaningful Use Diagnoses (Choose all that apply): None applicable Discharge Plan Admission Admit Date/Time: 05/02/21 15:29 Attending Provider: Fredy Santamaria Primary Care Provider: Ana Oates Consulting Providers: Santana Bullock ; Ryne Kessler ; Urszula Arboleda NP ; Ellen Bolden Discharge Orders/Prescriptions Prescriptions: New ipratropium-albuterol 0.5 mg-3 mg(2.5 mg base)/3 mL Solution For Nebulization 3 ml inhalation Q4HWA.RT Qty: 0 RF: 0 albuterol sulfate 2.5 mg /3 mL (0.083 %) Solution For Nebulization 2.5 mg inhalation Q2H PRN PRN (Reason: SOB/Wheezing) Qty: 0 RF: 0 acetaminophen 500 mg Tablet 1,000 mg PO Q8 Qty: 0 RF: 0 lidocaine HCl [Lidocaine Viscous] 2 % Solution 5 ml PO Q3H PRN PRN (Reason: MOUTH IRRITATION) Qty: 0 RF: 0 gabapentin 100 mg Capsule 100 mg PO TIDCM Qty: 15 RF: 0 oxycodone 5 mg Tablet 5 mg PO Q6H PRN PRN (Reason: Pain Score 6-10) 3 Days Qty: 12 RF: 0 insulin lispro [Humalog KwikPen Insulin] 100 unit/mL Insulin Pen See Protocol unit subcut ACHS Qty: 0 RF: 0 sodium chloride [Deep Sea Nasal] 0.65 % Aerosol,[place] 2 spray NASAL TID PRN PRN (Reason: NASAL DRYNESS) Qty: 0 RF: 0 chlorhexidine gluconate 2 % Towelette 1 ea topical DAILY Qty: 0 RF: 0 menthol-zinc oxide [Calmoseptine] 0.44-20.6 % Ointment 1 applic topical BID Qty: 0 RF: 0 furosemide [Lasix] 20 mg tablet 20 mg PO DAILY Qty: 30 RF: 0 Continued (DME) Handicap Placard See Rx Instructions .ROUTE .MEDSUPPLY Qty: 1 RF: 0 (DME) Ankle Brace Misc See Rx Instructions .ROUTE .MEDSUPPLY Qty: 1 RF: 0 aspirin 81 MG tablet 81 mg PO DAILY@0800 RF: 0 escitalopram oxalate [Lexapro] 20 mg tablet 20 mg PO DAILY RF: 0 clopidogrel 75 mg tablet 75 mg PO DAILY Qty: 90 RF: 3 rosuvastatin 40 mg tablet 40 mg PO DAILY Qty: 90 RF: 3 metoprolol tartrate 50 mg tablet 50 mg PO BID Qty: 180 RF: 0 Discontinued gabapentin 800 mg tablet 800 mg PO .qid RF: 0 metoprolol tartrate 25 mg tablet 25 mg PO BID RF: 0 hydrocodone-acetaminophen 7.5-325 mg tablet 1 tab PO TID RF: 0 tizanidine 4 MG tablet 4 mg PO TID PRN (Reason: muscle spasm/pain) Qty: 0 RF: 0 hydrochlorothiazide 12.5 mg tablet 12.5 mg PO DAILY Qty: 90 RF: 2 lisinopril 20 mg tablet 20 mg PO BID Qty: 180 RF: 1 Hold Instructions: Resume on 11/28/20. Hold until told to resume by Estimator Binding. albuterol sulfate 90 mcg/actuation HFA aerosol inhaler 2 puff INHALATION Q6H PRN (Reason: shortness of breath or wheezing) Qty: 18 RF: 2 trazodone 100 mg tablet 200 mg PO QHS Qty: 60 RF: 2 buspirone 10 mg tablet 20 mg PO TID Qty: 540 RF: 1 Other Ambulatory Orders: Basic Metabolic Profile (BMP) (Routine) Timeframe: [id number] Facility: [facility] - Location: Laboratory Ordered By: Dr. Fredy Santamaria Referrals / Follow Up: Santana Bullock MD [STAFF PHYSICIAN] - Within 1 Month Ana Oates MD [Primary Care Provider] - Within 1 Month Ellen Bolden MD [STAFF PHYSICIAN] - Within 1 Month Disposition Disposition (needs filled in before D/C Order can be placed): [facility] Charges/Coding Visit Charges Inpatient E&M: 28459 Disch Hosp
--- NOTE | 2021-05-08 10:36 | CASEMGMT ---
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 MISTY faxed orders, negative COVID, and tile picker time to Kathy with [facility]. MISTY notified RN, patient, deputy sheriff civil division, and patient's son. MISTY completed 7000 on HENS. All in agreement with d/c plan. Plan: d/c to [place] under skilled level of care on a convalescent stay. [facility] transported via [facility] van at 3p. Asia Barfield EXTRACTOR PLANT OPERATORIdania SCHREIBER
[2021-05-08] MEDS: Gabapentin 100 MG Capsule PO (11:09)
[2021-05-08 11:20] LABS: Bedside Glucose 126 mg/dL (70-110)
--- NOTE | 2021-05-08 12:33 | PN.RENAL_ITS ---
Subjective Subjective no new events Objective Data Objective Data Vital Signs: Vital Signs Temp Pulse Resp BP Pulse Ox 98.1 F 82 18 139/96 H 95 05/08/21 11:12 05/08/21 11:12 05/08/21 11:12 05/08/21 11:12 05/08/21 11:12 Oxygen Flow Rate (L/min) 3 Oxygen Delivery Method Room Air Weight: 105 kg Body Mass Index (BMI) 34.2 Intake & Output: Intake and Output for Last 24 Hours 05/06/21 05/07/21 05/08/21 23:59 23:59 23:59 Intake Total 5192.5 / 5192.5 3500 / 3500 580 / 580 Output Total 850 / 850 300 / 300 Balance 4342.5 / 4342.5 3200 / 3200 580 / 580 Lab / Micro Data Result Diagrams: 05/07/21 04:22 05/08/21 04:58 Labs: Laboratory Results - last 24 hr 05/07/21 12:12: POC Glucose 123 H 05/07/21 16:49: POC Glucose 120 H 05/07/21 22:05: POC Glucose 99 05/08/21 04:58: Sodium 133 L, Potassium 3.7, Chloride 103, Carbon Dioxide 20.0 L , Anion Gap 10, BUN 62 H, Creatinine 3.35 H, Estim Creat Clear Calc 16.07, Est GFR (MDRD) Af Amer 18 L, Est GFR (MDRD) Non-Af 15 L, BUN/Creatinine Ratio 18.5, Glucose 74, Calcium 7.7 L 05/08/21 06:27: POC Glucose 87 05/08/21 11:15: POC Glucose 126 H Micro: Microbiology 05/08/21 09:15 Nasal Secretion SARS-CoV-2 Antigen (Rapid) - Final 05/02/21 17:45 Blood Culture (Wb) - Anticubital Left Blood Culture - Final No growth in 5 days. 05/02/21 18:00 Blood Culture (Wb) - No Site/Description Given Blood Culture - Final No growth in 5 days. 05/02/21 14:00 Nasal Secretion SARS-CoV-2 Antigen (Rapid) - Final Physical Exam Narrative General: No apparent distress HEENT: Normocephalic, atraumatic, mucous membrane moist Heart: Normal S1, S2. No rubs or murmurs Lungs: Clear to auscultation anteriorly Abdomen: Normal bowel sound, soft, nontender, no guarding or rebound Extremity: No edema. Assessment & Plan Assessment/Plan (1) Acute kidney injury: PLAN: -The patient has a prior history of LOVE that resolved in the past. Her baseline serum creatinine is normal at 0.75 mg/dL (04/11/2021). -Current LOVE appears to be prerenal. Fractional excretion of sodium on 05/02/2021 was less than 1%. -Renal function continues to improve with IV fluid. No acute indication for STERILE PROCESSING TECHNICIAN. -Serum creatinine peaked at 9.22 mg/dL on 05/02/2021. -cr trending down (2) Hyponatremia: PLAN: -Hyponatremia is likely due to decreased effective blood volume and LOVE. -Serum sodium is improving (3) Metabolic acidosis: PLAN: -Metabolic acidosis is secondary to LOVE. -Serum bicarbonate level is improving with improvement of renal function (4) Acute respiratory failure with hypoxia and hypercapnia:
--- NOTE | 2021-05-08 14:26 | NURSING ---
This RN called patient report to [facility]. [facility] aware that scheduled pickup at [facility] is 1500.
== END 2021-05-08 15:22 | disposition skilled nursing facility (03) | DRG 917 ==
LOC: ED 15:27 → ICU 17:06 → PCU 05-06 07:22 → ICU 05-06 09:36
PROVIDERS: Hospitalist; Internal Medicine; Internal Medicine Critical Care Medicine; Internal Medicine Nephrology; Admitting Provider Internal Medicine; Emergency Provider Emergency Medicine; PCP Internal Medicine; Visit Provider Internal Medicine
DX: T40.2X1A Poisoning by other opioids, accidental (unintentional), initial encounter (principal); J96.21 Acute and chronic respiratory failure with hypoxia; G93.41 Metabolic encephalopathy; J96.22 Acute and chronic respiratory failure with hypercapnia; E22.2 Syndrome of inappropriate secretion of antidiuretic hormone; I13.0 Hypertensive heart and chronic kidney disease with heart failure and stage 1 through stage 4 chronic kidney disease, or unspecified chronic kidney disease; N17.9 Acute kidney failure, unspecified; I50.32 Chronic diastolic (congestive) heart failure; E87.2 Acidosis; J44.1 Chronic obstructive pulmonary disease with (acute) exacerbation; E11.22 Type 2 diabetes mellitus with diabetic chronic kidney disease; I95.9 Hypotension, unspecified; E11.40 Type 2 diabetes mellitus with diabetic neuropathy, unspecified; I48.0 Paroxysmal atrial fibrillation; N18.30 Chronic kidney disease, stage 3 unspecified; E78.2 Mixed hyperlipidemia; F17.210 Nicotine dependence, cigarettes, uncomplicated; I45.10 Unspecified right bundle-branch block; I25.10 Atherosclerotic heart disease of native coronary artery without angina pectoris; I25.2 Old myocardial infarction; T39.1X1A Poisoning by 4-Aminophenol derivatives, accidental (unintentional), initial encounter; T42.8X1A Poisoning by antiparkinsonism drugs and other central muscle-tone depressants, accidental (unintentional), initial encounter; Z79.82 Long term (current) use of aspirin; F41.1 Generalized anxiety disorder; M54.50 Low back pain, unspecified; E66.9 Obesity, unspecified; G89.4 Chronic pain syndrome; Z79.02 Long term (current) use of antithrombotics/antiplatelets; F41.0 Panic disorder [episodic paroxysmal anxiety]; Z68.37 Body mass index [BMI] 37.0-37.9, adult; Z79.899 Other long term (current) drug therapy; T42.6X1A Poisoning by other antiepileptic and sedative-hypnotic drugs, accidental (unintentional), initial encounter
CPT/HCPCS: 36415; 36600; 51702; 71045; 76770; 80048; 80053; 80069; 80307; 80329; 81001; 82077; 82550; 82570; 82803; 82962; 83605; 83935; 84300; 84484; 85025; 87040; 87426; 93005; 94002; 94003; 94640; 94660; 97110; 97163; 97166; 97530; 97535; 99251; 99285; 99406; J7030; J7050; J7120; A4216; C1751; G0463; G0480; J0610; J1940

== ENCOUNTER 2021-05-28 15:18 | Outpatient (CLI) | payer MEDICARE, SELFPAY ==
[2021-05-28 16:43] LABS: Absolute Neutrophil Count 5.5 X10^3/uL (2.0-7.7); Basophil# 0.05 X10^3/uL; Basophil% 0.6 % (0-1); Eosinophil# 0.11 X10^3/uL; Eosinophils% 1.3 % (0-5); Hematocrit 40.2 % (37-47); Hemoglobin 12.8 g/dL (12.0-15.0); Lymphocyte % 23.4 % (19-41); Mean Corp Hgb Conc 31.8 g/dL (32-36); Mean Corpuscular Hgb 29.9 pg (27.0-32.0); Mean Corpuscular Volume 93.9 fL (81-99); Mean Platelet Vol. 10.4 fl (6.2-12.0); Monocyte# 0.82 X10^3/uL; Monocyte% 9.6 % (0-10); NRBC Flagged by Analyzer 0.6 % (0-5); Neutrophil # 5.47 X10^3/uL (2.7-7.7); Neutrophil % 64.2 % (47-70); POSITIVE MORPHOLOGY YES; Platelet Count 382 K/mm3 (150-450); RBC Distribution Width SD 67.1 fl (35.1-43.9); Red Blood Count 4.28 M/mm3 (4.2-5.4); White Blood Count 8.5 K/mm3 (4.4-11.0)
[2021-05-28 16:48] LABS: Differential Indicated SCAN CRITERIA MET
[2021-05-28 17:10] LABS: ALB/GLOB Ratio 0.6 RATIO (0.9-2.4); AST(SGOT) 18 U/L (15-37); Alanine Aminotransfer ALT/SGPT 18 U/L (13-56); Albumin, Serum 2.6 g/dL (3.2-5.0); Alkaline Phosphatase 121 U/L (45-117); Anion Gap 3 (5-15); BUN 15 mg/dL (7-18); BUN/Creat Ratio 14.3 RATIO (10-20); Calcium,Total 9.1 mg/dL (8.5-10.1); Chloride 108 mmol/L (98-107); Creatinine, Serum 1.05 mg/dL (0.55-1.02); EST Glomerular Filtration Rate 57 mL/min (>60); Est Glom Filt Rate - Afr Amer 69 mL/min (>60); Globulin 4.3 g/dL (2.2-4.2); Glucose 89 mg/dL (74-106); Potassium 5.5 mmol/L (3.5-5.1); Protein, Total 6.9 g/dL (6.4-8.2); Sodium Level 141 mmol/L (136-145)
[2021-05-28 18:17] LABS: Differential Comment SCANNED; Macrocytosis 1+; Polychromasia 1+
[2021-05-28 18:18] LABS: Anisocytosis 2+; Microcytosis 1+
== END 2021-05-28 23:59 | disposition home or self-care (01) ==
LOC: BIMLAB 15:18
PROVIDERS: PCP Internal Medicine; Referring Provider Internal Medicine; Visit Provider Internal Medicine
DX: I10 Essential (primary) hypertension (principal)
CPT/HCPCS: 36415; 80053; 85025

== ENCOUNTER 2021-07-23 10:42 | Outpatient (CLI) | payer MEDICARE, SELFPAY ==
[2021-07-23 12:28] LABS: Anion Gap 5 (5-15); BUN 12 mg/dL (7-18); BUN/Creat Ratio 13.2 RATIO (10-20); Calcium,Total 9.3 mg/dL (8.5-10.1); Chloride 104 mmol/L (98-107); Creatinine, Serum 0.91 mg/dL (0.55-1.02); EST Glomerular Filtration Rate 67 mL/min (>60); Est Glom Filt Rate - Afr Amer 81 mL/min (>60); Glucose 173 mg/dL (74-106); Potassium 3.7 mmol/L (3.5-5.1); Sodium Level 137 mmol/L (136-145)
== END 2021-07-23 23:59 | disposition home or self-care (01) ==
LOC: BIMLAB 10:43
PROVIDERS: PCP Internal Medicine; Referring Provider Internal Medicine; Visit Provider Internal Medicine
DX: N17.9 Acute kidney failure, unspecified (principal)
CPT/HCPCS: 36415; 80048

== ENCOUNTER → 2021-11-11 | Outpatient (CLI) | payer MEDICARE, SELFPAY ==
[2021-11-11 12:08] LABS: Absolute Lymphocyte Count 2.54 X10^3/uL (0.83-4.51); Basophil# 0.05 X10^3/uL; Basophil% 0.5 % (0-1); Eosinophil# 0.07 X10^3/uL; Eosinophils% 0.7 % (0-5); Hematocrit 49.2 % (37-47); Hemoglobin 15.6 g/dL (12.0-15.0); Lymphocyte # 2.54 X10^3/ul (0.83-4.51); Lymphocyte % 26.9 % (19-41); Mean Corp Hgb Conc 31.7 g/dL (32-36); Mean Corpuscular Hgb 27.2 pg (27.0-32.0); Mean Corpuscular Volume 85.7 fL (81-99); Mean Platelet Vol. 10.9 fl (6.2-12.0); Monocyte# 0.75 X10^3/uL; NRBC Flagged by Analyzer 0 % (0-5); Neutrophil % 63.7 % (47-70); Platelet Count 244 K/mm3 (150-450); RBC Distribution Width CV 19.9 % (11.6-14.6); RBC Distribution Width SD 60.5 fl (35.1-43.9); Red Blood Count 5.74 M/mm3 (4.2-5.4); White Blood Count 9.4 K/mm3 (4.4-11.0)
[2021-11-11 13:03] LABS: AST(SGOT) 15 U/L (15-37); Alanine Aminotransfer ALT/SGPT 15 U/L (13-56); Albumin, Serum 3.2 g/dL (3.2-5.0); Alkaline Phosphatase 93 U/L (45-117); Anion Gap 5 (5-15); BUN 13 mg/dL (7-18); BUN/Creat Ratio 15.6 RATIO (10-20); Bilirubin, Direct 0.09 mg/dL (0.00-0.30); Calcium,Total 9.1 mg/dL (8.5-10.1); Chloride 109 mmol/L (98-107); Cholesterol 148 mg/dL (200); Creatinine, Serum 0.83 mg/dL (0.55-1.02); EST Glomerular Filtration Rate 74 mL/min (>60); Est Glom Filt Rate - Afr Amer 90 mL/min (>60); Globulin 3.8 g/dL (2.2-4.2); Glucose 104 mg/dL (74-106); High Density Lipoprotein 42 mg/dL; Potassium 4.2 mmol/L (3.5-5.1); Sodium Level 141 mmol/L (136-145); Triglycerides 174 mg/dL; Very Low Density Lipoprotein 35 mg/dL (5-40)
== END | disposition home or self-care (01) ==
LOC: LAB 11:29
PROVIDERS: PCP Internal Medicine; Visit Provider Nurse Practitioner Family
DX: I25.10 Atherosclerotic heart disease of native coronary artery without angina pectoris (principal); Z95.5 Presence of coronary angioplasty implant and graft; R06.09 Other forms of dyspnea; E78.2 Mixed hyperlipidemia
CPT/HCPCS: 36415; 80048; 80061; 80076; 85025

== ENCOUNTER → 2022-01-28 | Outpatient (CLI) | payer MEDICARE, SELFPAY ==
[2022-01-28 11:11] LABS: Amphetamine Urine VISTA NEGATIVE (<1000 ng/mL); Barbiturate Urine VISTA NEGATIVE (< 200 ng/mL); Benzodiazepine Urine VISTA NEGATIVE (< 200 ng/mL); Cocaine Urine VISTA NEGATIVE (< 300 ng/mL); Ecstacy Urine VISTA POSITIVE (< 500 ng/mL); Methadone Urine VISTA NEGATIVE (< 300 ng/mL); PCP Urine VISTA NEGATIVE (< 25 ng/mL); THC Urine VISTA POSITIVE (< 50 ng/mL); Vista UDS pH Range 5
== END | disposition home or self-care (01) ==
LOC: LAB 10:17
PROVIDERS: PCP Internal Medicine; Referring Provider Anesthesiology Pain Medicine; Visit Provider Anesthesiology Pain Medicine
DX: F11.20 Opioid dependence, uncomplicated (principal)
CPT/HCPCS: 80307

== ENCOUNTER 2022-02-09 15:07 | Emergency (ER) | payer MEDICARE, SELFPAY ==
[2022-02-09] VITALS (8 sets, daily range): BP systolic 74–150; BP diastolic 38–137; PULSE 60–78; RESP 16–18; TEMP 36.6; O2SAT 96–99; BMI 32.4
[2022-02-09] MEDS: 0.9% Normal Saline 1,000 ML 1000 ML IV (15:23)
--- NOTE | 2022-02-09 15:25 | EX.ED.DYSGE1 ---
HPI <SUKHWINDER Contreras - Last Filed: 02/09/22 18:16> History of Present Illness Chief Complaint: Fall Narrative Narrative: 61-year-old female with history of obesity, CAD, paroxysmal atrial fibrillation, hypertension, chronic pain, anxiety presents to the emergency department after mechanical fall injuring her right lower leg. Patient states she was just going up the steps when her right leg gave out. She does have a open wound to the mid leg, as well as deformity to the lower leg, upper ankle. Patient has full sensation to the right foot, however has difficulty moving it. Significant pain with any slight movement. Patient denies any other injury, denies any head or neck injury. [facility] <SUKHWINDER Contreras - Last Filed: 02/09/22 18:16> [facility] Medical History (Updated 02/09/22 @ 16:54 by SUKHWINDER Contreras) Acute exacerbation of chronic low back pain Acute kidney injury Acute respiratory failure Adult failure to thrive LOVE (acute kidney injury) Atherosclerosis of [place] coronary artery of [place] heart without angina pectoris Avulsion fracture of ankle Bilateral lower extremity edema Cellulitis Chronic pain Closed head injury Contusion of rib Essential (primary) hypertension Falls Flu vaccine need Fracture tibia/fibula Frequent falls Generalized anxiety disorder with panic attacks Hyperlipidemia Low back pain Lump of breast, left Metabolic encephalopathy Myocardial infarct Nasal pain Nicotine dependence NSTEMI (non-ST elevated myocardial infarction) (10/2016) Obesity (BMI 30-39.9) Osteoarthritis Paroxysmal atrial fibrillation Pneumonia Skin mole Smoker Syncope and collapse UTI (urinary tract infection) Vascular catheter fitting or adjustment Vision problems Home Medications aspirin 81 mg tablet,delayed release 81 mg PO DAILY@0800 heart [facility] 10/29/17 [History Last Taken 10/17/20] Handicap Placard #1 ea 11/07/20 [Rx Last Taken Unknown] leg brace (Ankle Brace) #1 ea 04/11/21 [Rx Last Taken Unknown] acetaminophen 500 mg tablet 1,000 mg PO Q8 #0 tabs 05/08/21 [Rx Last Taken Unknown] albuterol sulfate 2.5 mg/3 mL (0.083 %) solution for nebulization 2.5 mg (3 mL) inhalation Q2H PRN PRN SOB/Wheezing #0 mL 05/08/21 [Rx Last Taken Unknown] escitalopram oxalate 20 mg tablet (Lexapro) 20 mg PO DAILY depression #90 tabs 05/17/21 [Rx Last Taken Unknown] diphenhydramine HCl 25 mg capsule (Benadryl) 50 mg PO QHS 05/28/21 [History Last Taken Unknown] hydrocodone 7.5 mg-acetaminophen 325 mg tablet 1 tab PO TID PRN 05/28/21 [History Last Taken Unknown] ipratropium 0.5 mg-albuterol 3 mg (2.5 mg base)/3 mL nebulization soln 3 ml inhalation Q4HWA.RT 07/09/21 [History Last Taken Unknown] metoprolol tartrate 50 mg tablet 50 mg PO BID heart #180 tabs 07/09/21 [Rx Last Taken Unknown] clopidogrel 75 mg tablet 75 mg PO DAILY bld thinner #90 tabs 08/16/21 [Rx Last Taken Unknown] rosuvastatin 40 mg tablet 40 mg PO DAILY cholesterol #90 tabs 09/26/21 [Rx Last Taken Unknown] gabapentin 800 mg tablet 800 mg PO 4X/DAY 10/08/21 [History Last Taken Unknown] tizanidine 4 mg tablet 4 mg PO TID PRN 10/08/21 [History Last Taken Unknown] lisinopril 20 mg tablet 20 mg PO BID #180 tabs 11/12/21 [Rx Last Taken Unknown] furosemide 40 mg tablet 40 mg PO DAILY #180 tabs 01/03/22 [Rx Last Taken Unknown] albuterol sulfate 90 mcg/actuation aerosol inhaler 2 puff inhalation Q6H PRN shortness of breath or wheezing #18 grams 01/09/22 [Rx Last Taken Unknown] buspirone 10 mg tablet 20 mg PO TID #540 tabs 01/09/22 [Rx Last Taken Unknown] trazodone 100 mg tablet 200 mg PO QHS PRN sleep #60 tabs 01/14/22 [Rx Last Taken Unknown] Allergy/AdvReac Type Severity Reaction Status Date / Time adhesive AdvReac Other Verified 02/09/22 15:12 baclofen AdvReac LETHARGY Verified 02/09/22 15:12 Family History Father Hypertension Bowel disease Heart disease Kidney disease Mother Hypertension Arthritis Bowel disease Colon cancer Heart disease High cholesterol Grandmother Arthritis Breast cancer Brain tumor Lung cancer Grandfather Myocardial infarction Surgical History H/O laminectomy History of colonoscopy History of coronary artery stent placement (11/17/16) History of left heart catheterization History of splenectomy History of total right hip replacement Hx of bone graft (2014) S/P ORIF (open reduction internal fixation) fracture Social History adopted: No number of children: 1 current occupational status: unemployed Smoking Status: Current every day smoker tobacco type: cigarettes Tobacco: How many years used: 35 alcohol intake: current alcohol intake frequency: holidays/special occasions only Alcohol type: hard liquor substance use type: former substance user Date of last use: 20 years ago and marijuana caffeine: Yes Type: carbonated beverages and coffee what type of physical activity do you participate in: other details: Physical Therapy frequency: 3-4 times per week seatbelt use: always do you feel safe at home: Yes ROS <SUKHWINDER Contreras - Last Filed: 02/09/22 18:16> ROS ED ROS Narrative Constitutional: Negative for fever, chills, weight loss, weakness Eyes: Negative for vision loss, vision change, double vision ENT: Negative for any sore throat, ear pain, congestion Cardiovascular: Negative for any chest pain, tightness, palpitations Respiratory: Negative for any cough, sputum production, hemoptysis, dyspnea, dyspnea on exertion, orthopnea Gastrointestinal: Negative for any abdominal pain, nausea, vomiting, diarrhea, constipation, blood in stool, blood in vomit : Negative for any urinary frequency, dysuria, retention, blood in urine Muscle skeletal: Negative for any muscle joint pain, stiffness, myalgias, arthralgias, neck pain, back pain. Positive for right leg pain Neurological: Negative for any headache, syncope, numbness or tingling, dizziness Skin: Negative for any rashes, lumps, itching, abrasions, lacerations Psychiatric: Negative for any depression, anxiety, stress, suicidal ideation, homicidal ideation Hematologic: Negative for any easy bruising, excessive bruising, easy bleeding Allergies: Negative for any eczema, hives, rash EXAM <SUKHWINDER Contreras - Last Filed: 02/09/22 18:16> Physical Exam Narrative Exam Narrative: Vital signs reviewed. Patient was hypotensive on arrival. Patient is alert and oriented x4. Patient denies any other injury of the right leg. HEET: Head normocephalic atraumatic, TMs clear bilaterally. Posterior pharynx is clear, moist mucous membranes. Nares clear bilaterally. Neck: Supple with no lymphadenopathy or tenderness. No signs of meningismus, negative jolt sign. Cardiac: Regular rate and rhythm no murmurs gallops or rubs, equal peripheral pulses bilaterally. Respiratory: Lungs clear to auscultation bilaterally. No chest tenderness. Abdomen: Soft, nontender, nondistended. No abdominal bruit or pulsatile masses. No hepatosplenomegaly Extremities: Patient has obvious trauma, deformity to the right lower extremity. Patient has deformity to the distal tibia-fibula, proximal ankle. There is a laceration to the midline, there is no osseous structure protruding, however this we treated as a open fracture. Patient does have palpable pulses to both the pedal, posttibial. Good cap refill to the lower foot, good sensation. Neuro: Cranial nerves II through XII intact, no focal neurological deficits. Skin: Clean dry and intact with no rash, purpura, petechiae, vesicles or pustules. Backs/flank: No CVA tenderness, no midline spinal tenderness, no deformity. Psych: Normal mood and affect. No SI, HI or acute psychosis. Const Vital Signs: 02/09/22 15:08 02/09/22 15:16 02/09/22 15:16 Temperature 97.9 F Temperature Source Temporal Pulse Rate 64 78 Respiratory Rate 18 Respiratory Effort Normal Respiratory Depth Normal Respiratory Pattern Normal Blood Pressure 75/38 L 74/46 L Blood Pressure Mean 50 55 Pulse Ox 96 Oxygen Delivery Method Room Air Room Air 02/09/22 15:30 02/09/22 15:55 02/09/22 16:07 Temperature Temperature Source Pulse Rate 60 78 Respiratory Rate 18 16 Respiratory Effort Respiratory Depth Respiratory Pattern Blood Pressure 119/104 H 121/92 H 150/137 H Blood Pressure Mean 109 101 141 Pulse Ox 97 Oxygen Delivery Method Room Air 02/09/22 16:20 02/09/22 16:25 02/09/22 17:02 Temperature 97.8 F Temperature Source Pulse Rate 75 70 Respiratory Rate 18 18 Respiratory Effort Respiratory Depth Respiratory Pattern Normal Blood Pressure 78/56 L 94/57 L Blood Pressure Mean 63 69 Pulse Ox 99 Oxygen Delivery Method 02/09/22 17:02 Temperature Temperature Source Pulse Rate 66 Respiratory Rate 18 Respiratory Effort Respiratory Depth Respiratory Pattern Blood Pressure 94/71 Blood Pressure Mean 78 Pulse Ox 97 Oxygen Delivery Method Room Air <Dr. Viraj Portillo DO - Last Filed: 02/09/22 17:18> Physical Exam Const Vital Signs: 02/09/22 15:08 02/09/22 15:16 02/09/22 15:16 Temperature 97.9 F Temperature Source Temporal Pulse Rate 64 78 Respiratory Rate 18 Respiratory Effort Normal Respiratory Depth Normal Respiratory Pattern Normal Blood Pressure 75/38 L 74/46 L Blood Pressure Mean 50 55 Pulse Ox 96 Oxygen Delivery Method Room Air Room Air 02/09/22 15:30 02/09/22 15:55 02/09/22 16:07 Temperature Temperature Source Pulse Rate 60 78 Respiratory Rate 18 16 Respiratory Effort Respiratory Depth Respiratory Pattern Blood Pressure 119/104 H 121/92 H 150/137 H Blood Pressure Mean 109 101 141 Pulse Ox 97 Oxygen Delivery Method Room Air 02/09/22 16:20 02/09/22 16:25 02/09/22 17:02 Temperature 97.8 F Temperature Source Pulse Rate 75 70 Respiratory Rate 18 18 Respiratory Effort Respiratory Depth Respiratory Pattern Normal Blood Pressure 78/56 L 94/57 L Blood Pressure Mean 63 69 Pulse Ox 99 Oxygen Delivery Method 02/09/22 17:02 Temperature Temperature Source Pulse Rate 66 Respiratory Rate 18 Respiratory Effort Respiratory Depth Respiratory Pattern Blood Pressure 94/71 Blood Pressure Mean 78 Pulse Ox 97 Oxygen Delivery Method Room Air [facility] <SUKHWINDER Contreras - Last Filed: 02/09/22 18:16> [facility] Lab Data Labs: Laboratory Results - last 24 hr 02/09/22 02/09/22 15:25 15:25 WBC 7.3 RBC 5.09 Hgb 14.1 Hct 46.5 MCV 91.4 MCH 27.7 MCHC 30.3 L RDW Std Deviation 54.8 H RDW Coeff of Aleksandar 16.3 H Plt Count 235 MPV 10.7 Immature Gran % (Auto) 0.700 Neut % (Auto) 62.0 Lymph % (Auto) 28.0 Wagoner % (Auto) 7.8 Eos % (Auto) 1.2 Baso % (Auto) 0.3 Absolute Neuts (auto) 4.5 Absolute Lymphs (auto) 2.04 Nucleated RBC % 0 Sodium 140 Potassium 4.9 Chloride 104 Carbon Dioxide 32.0 Anion Gap 4 L BUN 36 H Creatinine 1.86 H Estim Creat Clear Calc 28.94 Est GFR (MDRD) Af Amer 35 L Est GFR (MDRD) Non-Af 29 L BUN/Creatinine Ratio 19.4 Glucose 81 Calcium 8.6 Radiography Diagnostic Testing: Clinical Impression(s) from Imaging Studies Tibia/Fibula X-Ray 02/09/22 15:35 IMPRESSION: Acute comminuted fractures of the distal tibial and fibular shafts. Electronically Signed: Reagan Leyva MD at 16:01 EST , Treatment and Re-Evaluation Narrative: Patient on initial arrival appears to have a deformity to the right leg as an a mild to moderate amount of pain. Patient will be treated as an open fracture secondary to the laceration to the mid leg. Tetanus vaccination be updated, patient received basic laboratory values, IV Ancef 2 g. Patient was given fentanyl 50 mcg x 2, patient also given 4 mg of morphine. Patient continues to have elevated blood pressure then low blood pressure. Patient is alert and oriented. She is on 2 L. Patient's x-ray of the right lower extremity shows a acute comminuted fracture of the distal tibia and fibular shaft. Patient CBC was unremarkable, patient's chemistry does show some renal dysfunction however this is improvement from the previous laboratory studies. I did talk with the orthopedist here, he thinks that this would be better served at a trauma center. Did talk to [facility], I talked to the transfer center and they will have me talk to orthopedics. Patient be accepted by Dr. Zhao, patient be an ER to ER transfer. I did speak with the ER physician, patient be transferred by squad. Patient remained stable. She is aware of the transfer. Patient placed in a short posterior splint for transport. Pulses remain intact prior to splint. Patient in good feeling after splint. Patient was hypoxic at 88% on 2 L, patient was very sleepyShannan this is secondary to pain medicine. Patient also has pain medicine at home. We gave the patient 0.4 mg of IV Narcan. This did wake the patient up. Patient's blood pressure was more stable. Patient was 90 to 92% on 4 L. Patient will be able to be transferred. <Dr. Viraj Portillo, DO - Last Filed: 02/09/22 17:18> [facility] Narrative Medical decision making narrative: I have personally performed a face to face assessment of the patient and have reviewed the CASE Note. I performed a substantive portion of the visit including all aspects of the following. My orozco findings include: History: Patient presents with right lower leg and ankle pain that began today. Patient states she went to take a step up and her leg gave out. Patient states she fell and injured her lower leg and ankle. Patient has a laceration over the anterior aspect of her mid tibia. Patient states her pain is worse with any movement of her ankle. Patient denies any paresthesias or weakness. Patient is unsure of her last tetanus. Exam: Vital signs showed initial hypotension of 75/38. This improved to 119/104. Remaining vital signs are within normal limits. There is edema, ecchymosis, and deformity over the right distal tibia and fibula. There is a laceration over the mid tibia anteriorly. It is unclear if this communicates with the fracture site. Range of motion was limited in all motions of the right leg and ankle secondary to pain. Sensation was intact to light touch in all digits. Capillary refill was less than 2 seconds in all digits. There is a palpable pedal and posterior tibial pulse. Medical Decision Making: X-rays of the right tibia and fibula were obtained. There are 4 views. On my interpretation, there are comminuted fractures of the distal tibia and fibula shafts. There is some posterior displacement. Radiologist also interpreted the x-rays and agrees. CBC was within normal limits. Basic metabolic profile shows a BUN of 36 and creatinine of 1.86. These are consistent with prior results. Case was discussed with Dr. Lema from orthopedics. He recommended transferring the patient because this is a fracture that he is not comfortable caring for. Case was discussed with [facility]. Patient will be able to be transferred to the emergency department there. Patient understands and is agreeable with the plan. All questions were answered. Lab Data Attestation: I reviewed the patient's lab results. Labs: Laboratory Results - last 24 hr 02/09/22 02/09/22 15:25 15:25 WBC 7.3 RBC 5.09 Hgb 14.1 Hct 46.5 MCV 91.4 MCH 27.7 MCHC 30.3 L RDW Std Deviation 54.8 H RDW Coeff of Aleksandar 16.3 H Plt Count 235 MPV 10.7 Immature Gran % (Auto) 0.700 Neut % (Auto) 62.0 Lymph % (Auto) 28.0 Wagoner % (Auto) 7.8 Eos % (Auto) 1.2 Baso % (Auto) 0.3 Absolute Neuts (auto) 4.5 Absolute Lymphs (auto) 2.04 Nucleated RBC % 0 Sodium 140 Potassium 4.9 Chloride 104 Carbon Dioxide 32.0 Anion Gap 4 L BUN 36 H Creatinine 1.86 H Estim Creat Clear Calc 28.94 Est GFR (MDRD) Af Amer 35 L Est GFR (MDRD) Non-Af 29 L BUN/Creatinine Ratio 19.4 Glucose 81 Calcium 8.6 Radiography Diagnostic Testing: Clinical Impression(s) from Imaging Studies Tibia/Fibula X-Ray 02/09/22 15:35 IMPRESSION: Acute comminuted fractures of the distal tibial and fibular shafts. Electronically Signed: Reagan Leyva MD at 16:01 EST Reading Location ID and State: [facility] / [place] Tel , Service support , Discharge Plan Triage Chief Complaint: Fall ED Midlevel Provider: Marv Amaya ED Provider: Viraj Portillo Dx/Rx/DC Orders Clinical Impression: Fall, Fracture of tibia and fibula, shaft, Laceration Prescriptions: No Action (DME) Handicap Placard See Rx Instructions .ROUTE .MEDSUPPLY Qty: 1 0RF Rx Instructions: As directed, length of time 3 years ipratropium-albuterol 0.5 mg-3 mg(2.5 mg base)/3 mL solution for nebulization 3 ml inhalation Q4HWA.RT metoprolol tartrate 50 mg tablet 50 mg PO BID Qty: 180 3RF tizanidine 4 mg tablet 4 mg PO TID PRN (DME) Ankle Brace Misc See Rx Instructions .ROUTE .MEDSUPPLY Qty: 1 0RF Rx Instructions: Wear daily hydrocodone-acetaminophen 7.5-325 mg tablet 1 tab PO TID PRN diphenhydramine HCl [Benadryl] 25 mg capsule 50 mg PO QHS gabapentin 800 mg tablet 800 mg PO 4X/DAY aspirin 81 MG tablet 81 mg PO DAILY@0800 albuterol sulfate 2.5 mg /3 mL (0.083 %) Solution For Nebulization 2.5 mg inhalation Q2H PRN PRN (Reason: SOB/Wheezing) Qty: 0 0RF acetaminophen 500 mg Tablet 1,000 mg PO Q8 Qty: 0 0RF escitalopram oxalate [Lexapro] 20 mg tablet 20 mg PO DAILY Qty: 90 2RF clopidogrel 75 mg tablet 75 mg PO DAILY Qty: 90 3RF rosuvastatin 40 mg tablet 40 mg PO DAILY Qty: 90 3RF lisinopril 20 mg tablet 20 mg PO BID Qty: 180 3RF Hold Instructions: LOVE furosemide 40 mg tablet 40 mg PO DAILY Qty: 180 4RF Rx Instructions: may take one extra dose daily for increased swelling as needed albuterol sulfate 90 mcg/actuation HFA aerosol inhaler 2 puff INHALATION Q6H PRN (Reason: shortness of breath or wheezing) Qty: 18 2RF buspirone 10 mg tablet 20 mg PO TID Qty: 540 1RF trazodone 100 mg tablet 200 mg PO QHS PRN (Reason: sleep) Qty: 60 2RF Primary Care Provider: Ana Oates Referrals: Ana Oates MD [Primary Care Provider] - Disposition Disposition: DC/Tx to Another Type of HCF
[2022-02-09 15:31] LABS: Absolute Lymphocyte Count 2.04 X10^3/uL (0.83-4.51); Absolute Neutrophil Count 4.5 X10^3/uL (2.0-7.7); Basophil# 0.02 X10^3/uL; Basophil% 0.3 % (0-1); Eosinophil# 0.09 X10^3/uL; Eosinophils% 1.2 % (0-5); Hematocrit 46.5 % (37-47); Hemoglobin 14.1 g/dL (12.0-15.0); Lymphocyte # 2.04 X10^3/ul (0.83-4.51); Mean Corp Hgb Conc 30.3 g/dL (32-36); Mean Corpuscular Hgb 27.7 pg (27.0-32.0); Mean Corpuscular Volume 91.4 fL (81-99); Mean Platelet Vol. 10.7 fl (6.2-12.0); Monocyte# 0.57 X10^3/uL; Monocyte% 7.8 % (0-10); NRBC Flagged by Analyzer 0 % (0-5); Neutrophil # 4.51 X10^3/uL (2.7-7.7); Platelet Count 235 K/mm3 (150-450); RBC Distribution Width CV 16.3 % (11.6-14.6); RBC Distribution Width SD 54.8 fl (35.1-43.9); Red Blood Count 5.09 M/mm3 (4.2-5.4); White Blood Count 7.3 K/mm3 (4.4-11.0)
--- NOTE | 2022-02-09 15:35 | RAD_ITS ---
EXAM: XR RIGHT TIBIA AND FIBULA, 2 VIEWS CLINICAL INDICATION: trauma TECHNIQUE: Frontal and lateral views of the right tibia and fibula. This report was created using [employer] report generation technology. COMPARISON: None. FINDINGS: BONES/JOINTS: Acute oblique comminuted fracture of the distal tibial shaft noted. Distal fracture fragment is mildly displaced posteriorly. Acute comminuted fracture of the distal fibular shaft also noted with distal fracture fragment mildly angulated laterally and displaced posteriorly. No subluxation of the ankle. SOFT TISSUES: Diffuse soft tissue swelling. No radiopaque foreign body. RAD/Tibia & Fibula 2 Views IMPRESSION: Acute comminuted fractures of the distal tibial and fibular shafts. Electronically Signed: Reagan Leyva MD at 16:01 EST ,
[2022-02-09 15:42] LABS: Anion Gap 4 (5-15); BUN 36 mg/dL (7-18); BUN/Creat Ratio 19.4 RATIO (10-20); Calcium,Total 8.6 mg/dL (8.5-10.1); Chloride 104 mmol/L (98-107); Creatinine, Serum 1.86 mg/dL (0.55-1.02); EST Glomerular Filtration Rate 29 mL/min (>60); Est Glom Filt Rate - Afr Amer 35 mL/min (>60); Estimated Creatinine Clearance 28.94 ml/min; Glucose 81 mg/dL (74-106); Potassium 4.9 mmol/L (3.5-5.1); Sodium Level 140 mmol/L (136-145)
--- NOTE | 2022-02-09 15:45 | EKG12_ITS ---
Test Reason : FALL Blood Pressure : / mmHG Vent. Rate : 063 BPM Atrial Rate : 063 BPM P-R Int : 146 ms QRS Dur : 122 ms QT Int : 504 ms P-R-T Axes : 061 018 012 degrees QTc Int : 515 ms Normal sinus rhythm Right bundle branch block Abnormal ECG Confirmed by LANA MICHAEL, NABOR ([id number]), commissioning editor DEREK RAY ([id number]) on 02/11/2022 11:19:39 AM Referred By: Confirmed By:NABOR SCHWARTZ MD
[2022-02-09] MEDS: Diphth,Pertuss(Acell),Tet Vac 0.5 ML Vial IM (15:47)
[2022-02-09] MEDS: Cefazolin 2 GM in 0.9% Normal Saline 100 ML IV (15:50)
[2022-02-09] MEDS: Ondansetron 4 MG/2 ML Vial IV (15:55)
[2022-02-09] MEDS: fentaNYL 100 MCG/2 ML Ampul 50 MCG IV (15:55)
--- NOTE | 2022-02-09 16:15 | NURSING ---
CALLED [facility] FOR TRANSFER. TALKED TO CARMEN
[2022-02-09] MEDS: Ipratropium/Albuterol Sulfate 3 ML AMPUL.NEB INHALATION (16:26)
--- NOTE | 2022-02-09 16:49 | NURSING ---
CALLED [facility], ETA IS 30 MIN
[2022-02-09] MEDS: Naloxone 0.4 MG/ML Syringe IV (17:28)
== END 2022-02-09 18:00 | disposition other institution (70) ==
PROVIDERS: Nurse Practitioner; Emergency Provider Emergency Medicine; PCP Internal Medicine; Visit Provider Emergency Medicine
DX: S86.321A Laceration of muscle(s) and tendon(s) of peroneal muscle group at lower leg level, right leg, initial encounter (principal); E66.9 Obesity, unspecified; I10 Essential (primary) hypertension; F41.9 Anxiety disorder, unspecified; M79.661 Pain in right lower leg; I25.10 Atherosclerotic heart disease of native coronary artery without angina pectoris; F17.210 Nicotine dependence, cigarettes, uncomplicated; E78.5 Hyperlipidemia, unspecified; S82.201B Unspecified fracture of shaft of right tibia, initial encounter for open fracture type I or II; S82.401B Unspecified fracture of shaft of right fibula, initial encounter for open fracture type I or II; W10.9XXA Fall (on) (from) unspecified stairs and steps, initial encounter
CPT/HCPCS: 73590; 80048; 85025; 90715; 93005; 94640; 96365; 96372; 96375; 99285; J7030; A4216; J2310; J2405

== ENCOUNTER → 2022-08-05 | Outpatient (CLI) | payer MEDICARE, SELFPAY ==
[2022-08-05 16:16] LABS: Amphetamine Urine VISTA NEGATIVE (<1000 ng/mL); Barbiturate Urine VISTA NEGATIVE (< 200 ng/mL); Benzodiazepine Urine VISTA NEGATIVE (< 200 ng/mL); Cocaine Urine VISTA NEGATIVE (< 300 ng/mL); Ecstacy Urine VISTA POSITIVE (< 500 ng/mL); Methadone Urine VISTA NEGATIVE (< 300 ng/mL); PCP Urine VISTA NEGATIVE (< 25 ng/mL); THC Urine VISTA POSITIVE (< 50 ng/mL); Vista UDS pH Range 5
== END | disposition home or self-care (01) ==
PROVIDERS: Referring Provider Anesthesiology Pain Medicine; Visit Provider Anesthesiology Pain Medicine
DX: F11.20 Opioid dependence, uncomplicated (principal)
CPT/HCPCS: 80307

== ENCOUNTER → 2022-11-26 | Outpatient (CLI) | payer MEDICARE, SELFPAY ==
--- NOTE | 2022-11-26 12:35 | RAD_ITS ---
STUDY: X-RAY - THORACIC SPINE REASON FOR EXAM: Female, 62 years old. Mid back pain TECHNIQUE: 2 view(s) of the thoracic spine were obtained. COMPARISON: 10/17/2020 FINDINGS: Normal kyphosis of the thoracic spine. There is no substantial scoliosis. There is multilevel endplate spondylosis of the thoracic vertebrae. There is multilevel disc space narrowing of the thoracic spine. The soft tissue structures are unremarkable. RAD/Thoracic Spine 2 Views IMPRESSION: Age consistent degenerative changes, no acute findings Electronically Signed: Jose Gentile MD at 16:48 EDT ,
== END | disposition home or self-care (01) ==
LOC: RAD 12:33
PROVIDERS: Referring Provider Anesthesiology Pain Medicine; Visit Provider Anesthesiology Pain Medicine
DX: M51.34 Other intervertebral disc degeneration, thoracic region (principal)
CPT/HCPCS: 72070